=== PATIENT | male | born 1945 | race Caucasian/White ===

== ENCOUNTER → 2018-12-14 14:14 | Outpatient (CLI) | payer MEDICARE, OTHER, SELFPAY ==
[2018-12-14 12:54] VITALS: BMI 21.2
[2018-12-14 14:52] LABS: Erythrocyte Sedimentation Rate < 1 mm/hr (0-20)
[2018-12-14 15:06] LABS: AST(SGOT) 28 U/L (15-37); Alanine Aminotransfer ALT/SGPT 22 U/L (16-61); Albumin, Serum 3.8 g/dL (3.2-5.0); Alkaline Phosphatase 94 U/L (45-117); Cholesterol 128 mg/dL (200); Globulin 3.3 g/dL (2.2-4.2); High Density Lipoprotein 68 mg/dL; Protein, Total 7.1 g/dL (6.4-8.2); Triglycerides 63 mg/dL; Very Low Density Lipoprotein 13 mg/dL (5-40)
== END ==
PROVIDERS: Referring Provider Physician Assistant Medical; Visit Provider Physician Assistant Medical
DX: I10 Essential (primary) hypertension (principal); I25.10 Atherosclerotic heart disease of native coronary artery without angina pectoris; E78.00 Pure hypercholesterolemia, unspecified; R51 Headache
CPT/HCPCS: 36415; 80061; 80076; 85652

== ENCOUNTER 2019-01-05 10:36 | Emergency (ER) | payer MEDICARE, OTHER, SELFPAY ==
[2018-12-14 12:54] VITALS: BMI 21.2
[2019-01-05] VITALS (9 sets, daily range): BP systolic 153–174; BP diastolic 65–84; PULSE 60–89; RESP 18–21; TEMP 36.9; O2SAT 93–99; BMI 20.3
--- NOTE | 2019-01-05 10:43 | EKG12_ITS ---
Test Reason : NEURO S/SX Blood Pressure : / mmHG Vent. Rate : 061 BPM Atrial Rate : 061 BPM P-R Int : 126 ms QRS Dur : 088 ms QT Int : 428 ms P-R-T Axes : 000 -16 069 degrees QTc Int : 430 ms Normal sinus rhythm Minimal voltage criteria for LVH, may be normal variant Septal infarct , age undetermined Abnormal ECG Confirmed by KHANG DWYER, NATHAN ([id number]), web editor DOUGIE CORCORAN ([id number]) on 01/07/2019 11:03:11 AM Referred By: RADHA Confirmed By:NATHAN QUIÑONEZ MD
--- NOTE | 2019-01-05 10:43 | RAD_ITS ---
STUDY: X-RAY CHEST REASON FOR EXAM: Male, 73 years old. Difficulty walking, speaking and hearing. Last known well last night. Vomiting last night. TECHNIQUE: Portable upright chest COMPARISON: CTA chest 10/28/2017. FINDINGS: Pulmonary hyperlucency and hyperinflation with diffuse mild coarsening of interstitium and hemidiaphragm flattening consistent with COPD/emphysema. Lungs otherwise acutely clear. Normal cardiomediastinal silhouette, calli, pleural margins. No acute osseous or upper abdominal process. RAD/Chest 1 View IMPRESSION: No acute cardiopulmonary process. Electronically Signed: Leroy Barrow MD at 12:57 EDT Tel , Service support ,
--- NOTE | 2019-01-05 10:43 | CT_ITS ---
STUDY: CT BRAIN WITHOUT CONTRAST REASON FOR EXAM: Male, 73 years old. Trouble with walking. Speech and hearing RADIATION DOSAGE (If Supplied By Facility): CTDIvol = ( 44.99 ) mGy, DLP = ( 767.99 ) mGycm TECHNIQUE: Transaxial CT imaging of the brain was performed without administration of intravenous contrast material. Individualized dose optimization techniques were used for this CT. COMPARISON: None. FINDINGS: Normal soft tissue structures. Normal calvarium. There is an area of acute intracranial hemorrhage within the left frontal lobe with surrounding edema. Area of hemorrhage measuring at least 3.9 x 2.7 x 4.4 cm. There is also blood products within the bilateral lateral ventricles. There is only slight rightward mass effect and midline shift. Midline shift measuring roughly 3.6 mm. No evidence of uncal herniation. Otherwise, moderate chronic conclusions changes of the brain. Normal visualized paranasal sinuses. CT/Brain/Head without Contrast IMPRESSION: Intracranial hemorrhage within the left frontal lobe with surrounding edema. Slight rightward mass effect or midline shift. No evidence of uncal herniation. Small amount of blood products within the lateral ventricles. N.B. : The above information has been verbally conveyed by Darron Wilkerson DO to Dr. Roy; [phone], on 01/05/2019 12:52:49 (ET). Electronically Signed: Darron Wilkerson DO at 12:53 EDT Tel , Service support ,
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
[2019-01-05 10:56] LABS: Bedside Glucose 136 mg/dL (70-110)
[2019-01-05 11:07] LABS: Absolute Lymphocyte Count 1.65 X10^3/ul (0.83-4.51); Basophil# 0.01 X10^3/uL; Differential Indicated SCAN CRITERIA MET; Hematocrit 48.1 % (40-54); Hemoglobin 15.6 g/dl (13.0-16.5); Lymphocyte # 1.65 X10^3/ul (4.0); Mean Corp Hgb Conc 32.4 g/gl (32-36); Mean Corpuscular Hgb 29.2 pg (27.0-32.0); Mean Corpuscular Volume 89.9 fL (80-94); Monocyte# 1.85 X10^3/uL; Neutrophil # 16.95 X10^3/uL (2.7-7.7); Neutrophil % 82.8 % (47-70); POSITIVE COUNT NO; POSITIVE DIFFERENTIAL YES; POSITIVE MORPHOLOGY NO; Platelet Count 234 K/mm3 (150-450); RBC Distribution Width CV 14.4 % (11.6-14.6); RBC Distribution Width SD 47.1 fl (35.1-43.9); Red Blood Count 5.35 M/mm3 (4.6-6.2); White Blood Count 20.5 K/mm3 (4.4-11.0)
[2019-01-05 11:20] LABS: Anion Gap 13 (5-15); BUN 26 mg/dL (7-18); BUN/Creat Ratio 23.9 RATIO (10-20); Calcium,Total 8.9 mg/dL (8.5-10.1); Chloride 106 mmol/L (98-107); Creatinine, Serum 1.09 mg/dL (0.70-1.30); EST Glomerular Filtration Rate 70 mL/min (>60); Est Glom Filt Rate - Afr Amer 85 mL/min (>60); Glucose 133 mg/dL (74-106); Potassium 4.3 mmol/L (3.5-5.1); Sodium Level 142 mmol/L (136-145)
[2019-01-05 11:31] LABS: International Normalized Ratio 1.2; Prothrombin Time (Protime)PT. 14.6 SECONDS (11.7-14.9)
[2019-01-05] MEDS: LORazepam 2 MG/ML Syringe 0.5 MG IV (12:26)
--- NOTE | 2019-01-05 12:44 | ED.RN ---
CALLED REPORT RICHARDSON BHATTI.
--- NOTE | 2019-01-05 13:23 | ED.RN ---
MILAN IN ED.
[2019-01-06 14:16] LABS: Pathologist Review Reviewed
== END 2019-01-05 13:29 | disposition short-term general hospital (02) ==
LOC: ED 11:57
PROVIDERS: Emergency Provider Emergency Medicine
DX: I61.9 Nontraumatic intracerebral hemorrhage, unspecified (principal); R47.01 Aphasia; D68.51 Activated protein C resistance; I10 Essential (primary) hypertension; R11.2 Nausea with vomiting, unspecified; F41.9 Anxiety disorder, unspecified; Z79.899 Other long term (current) drug therapy; Z86.73 Personal history of transient ischemic attack (TIA), and cerebral infarction without residual deficits
CPT/HCPCS: 70450; 71045; 80048; 82962; 84484; 85025; 85610; 85730; 93005; 96361; 96374; 99285; J7030; J7050; A4216

== ENCOUNTER → 2019-07-29 12:43 | Outpatient (CLI) | payer MEDICARE, OTHER, SELFPAY ==
[2019-07-09 10:24] VITALS: BMI 20.9
--- NOTE | 2019-07-29 12:44 | ECHOD_ITS ---
Reason For Study: HYPERTENSION Procedure This was a 2D Doppler, Color Flow transthoracic echocardiogram. Exam performed in department. Left Ventricle Normal LV size. Left ventricular systolic function is normal. The estimated ejection fraction is 60 %. Stage 2 diastolic dysfunction. No regional wall motion abnormalities noted. Right Ventricle Normal RV size. Normal systolic function. Atria Normal left atrium. Normal right atrium. Mitral Valve Normal mitral valve. Tricuspid Valve Normal tricuspid valve. Mild tricuspid valve insufficiency. Pulmonary artery systolic pressure is 25 mmHg. Aortic Valve Trisinus/trileaflet aortic valve. Mild focal aortic valve calcification. Pulmonic Valve Normal pulmonic valve. Great Vessels Normal aortic root. The pulmonary artery is normal size. Normal inferior vena cava. Pericardium/Pleural No pericardial effusion. MMode/2D Measurements & Calculations LVIDd: 4.1 cm IVSd: 0.76 cm Ao root diam: 3.1 cm LVIDs: 2.7 cm LVPWd: 0.79 cm RVDd: 3.3 cm FS: 34.6 % LAV(MOD-bp): 49.7 ml LA A4 area: 13.7 cm2 LA dimension(2D): 2.3 cm LAV(MOD-bp) Indexed: 26.7 ml/m2 LAV(MOD-sp2): 51.6 ml LAV(MOD-sp4): 37.2 ml RA A4 area: 14.6 cm2 Time Measurements MV dec time: 0.26 sec Doppler Measurements & Calculations MV E max scooter: 57.8 cm/sec Lat Peak E' Scooter: 11.1 cm/sec Med Peak E' Scooter: 10.8 cm/sec MV A max scooter: 60.6 cm/sec E/E' lat: 5.2 E/E' med: 5.4 MV E/A: 0.95 Ao V2 max: 150.6 cm/sec LV V1 max: 112.9 cm/sec PA V2 max: 86.1 cm/sec Ao max P.1 mmHg LV V1 max P.1 mmHg PI dec slope: 106.3 cm/sec2 TR max scooter: 229.2 cm/sec TR max P.1 mmHg Interpretation Summary Normal LV size. Left ventricular systolic function is normal. The estimated ejection fraction is 60 %. Stage 2 diastolic dysfunction. Mild tricuspid valve insufficiency. Ordering Physician: Russ Bower Referring Physician: Garrett Rollins Performed By: Criss Pineda RDCS, RVT
== END ==
PROVIDERS: Family Provider Family Medicine; PCP Family Medicine; Referring Provider Internal Medicine Cardiovascular Disease; Visit Provider Internal Medicine Cardiovascular Disease
DX: R60.0 Localized edema (principal)
CPT/HCPCS: 93306

== ENCOUNTER → 2019-11-23 | Outpatient (CLI) | payer MEDICARE, OTHER, SELFPAY ==
[2019-07-09 10:24] VITALS: BMI 20.9
[2019-11-23 16:28] LABS: Prothrombin Time (Protime)PT. 35.2 SECONDS (11.7-14.9)
[2019-11-23 16:33] LABS: International Normalized Ratio 3.5
== END | disposition home or self-care (01) ==
PROVIDERS: PCP Family Medicine; Referring Provider Family Medicine; Visit Provider Family Medicine
DX: I82.4Y9 Acute embolism and thrombosis of unspecified deep veins of unspecified proximal lower extremity (principal)
CPT/HCPCS: 85610

== ENCOUNTER → 2019-11-26 | Outpatient (CLI) | payer MEDICARE, OTHER, SELFPAY ==
[2019-07-09 10:24] VITALS: BMI 20.9
[2019-11-26 14:30] LABS: Prothrombin Time (Protime)PT. 43.1 SECONDS (11.7-14.9)
[2019-11-26 17:19] LABS: International Normalized Ratio 4.5
== END | disposition home or self-care (01) ==
LOC: LABSPEC 14:05
PROVIDERS: PCP Family Medicine; Referring Provider Student in an Organized Health Care Education/Training Program; Visit Provider Student in an Organized Health Care Education/Training Program
DX: I82.422 Acute embolism and thrombosis of left iliac vein (principal)
CPT/HCPCS: 85610

== ENCOUNTER → 2019-11-29 | Outpatient (CLI) | payer MEDICARE, OTHER, SELFPAY ==
[2019-07-09 10:24] VITALS: BMI 20.9
[2019-11-29 10:45] LABS: International Normalized Ratio 2.7; Prothrombin Time (Protime)PT. 28.9 SECONDS (11.7-14.9)
== END | disposition home or self-care (01) ==
PROVIDERS: PCP Family Medicine; Referring Provider Family Medicine; Visit Provider Family Medicine
DX: I82.4Y9 Acute embolism and thrombosis of unspecified deep veins of unspecified proximal lower extremity (principal)
CPT/HCPCS: 85610

== ENCOUNTER → 2021-08-24 14:20 | Outpatient (CLI) | payer MEDICARE, OTHER, SELFPAY ==
[2021-08-24 17:33] LABS: Hematocrit 50.1 % (40-54); Hemoglobin 15.8 g/dL (13.0-16.5); Mean Corp Hgb Conc 31.5 g/dL (32-36); Mean Corpuscular Hgb 29.4 pg (27.0-32.0); Mean Corpuscular Volume 93.1 fL (80-94); Mean Platelet Vol. 11.1 fl (6.2-12.0); Platelet Count 270 K/mm3 (150-450); RBC Distribution Width CV 14.2 % (11.6-14.6); RBC Distribution Width SD 48.8 fl (35.1-43.9); Red Blood Count 5.38 M/mm3 (4.6-6.2); White Blood Count 8.1 K/mm3 (4.4-11.0)
[2021-08-24 17:43] LABS: Erythrocyte Sedimentation Rate 4 mm/hr (0-20)
[2021-08-24 18:03] LABS: Vitamin B12 295 pg/mL (211-911)
[2021-08-24 18:14] LABS: ALB/GLOB Ratio 0.9 RATIO (0.9-2.4); AST(SGOT) 28 U/L (15-37); Alanine Aminotransfer ALT/SGPT 26 U/L (16-61); Albumin, Serum 3.4 g/dL (3.2-5.0); Alkaline Phosphatase 100 U/L (45-117); Anion Gap 5 (5-15); BUN 15 mg/dL (7-18); BUN/Creat Ratio 14.2 RATIO (10-20); CRP < 2.90 mg/L (0.0-3.0); Calcium,Total 8.7 mg/dL (8.5-10.1); Chloride 109 mmol/L (98-107); Cholesterol 151 mg/dL (200); Creatinine, Serum 1.06 mg/dL (0.70-1.30); EST Glomerular Filtration Rate 72 mL/min (>60); Est Glom Filt Rate - Afr Amer 87 mL/min (>60); Globulin 3.9 g/dL (2.2-4.2); Glucose 68 mg/dL (74-106); High Density Lipoprotein 75 mg/dL; Potassium 5.2 mmol/L (3.5-5.1); Protein, Total 7.3 g/dL (6.4-8.2); Sodium Level 141 mmol/L (136-145); Thyroid Stim Hormone (TSH) 2.22 uIU/mL (0.358-3.74); Triglycerides 103 mg/dL; Very Low Density Lipoprotein 21 mg/dL (5-40)
[2021-08-29 15:01] LABS: ANTINUCLEAR ANTIBODIES DIRECT Negative (Negative)
[2021-08-31 08:24] LABS: Vitamin B1, Thiamine 136.4 nmol/L (66.5-200.0)
== END ==
PROVIDERS: PCP Family Medicine; Referring Provider Psychiatry & Neurology Neurology; Visit Provider Psychiatry & Neurology Neurology
DX: F01.50 Vascular dementia, unspecified severity, without behavioral disturbance, psychotic disturbance, mood disturbance, and anxiety (principal); E78.00 Pure hypercholesterolemia, unspecified; Z86.711 Personal history of pulmonary embolism; Z86.73 Personal history of transient ischemic attack (TIA), and cerebral infarction without residual deficits
CPT/HCPCS: 36415; 80053; 80061; 82607; 82746; 84425; 84443; 85027; 85652; 86038; 86140; 86225; 86235

== ENCOUNTER → 2021-10-02 16:16 | Outpatient (CLI) | payer MEDICARE, OTHER, SELFPAY ==
--- NOTE | 2021-10-02 16:20 | MRI_ITS ---
EXAM: MR HEAD WITHOUT AND WITH INTRAVENOUS CONTRAST CLINICAL INDICATION: Intracerebral Hemorrhage FOLLOW UP TECHNIQUE: Multiplanar and multisequence MR images of the brain were obtained without and with intravenous contrast. This report was created using [employer] report [employer] technology. CONTRAST: 13ML IV DOTAREM COMPARISON: CT 01/05/2019 FINDINGS: BRAIN AND EXTRA-AXIAL SPACES: Microvascular ischemic changes. There are left frontal lobe old infarcts. There is left frontal lobe area of low GRE signal in the brain. This likely represents areas of prior infarction and/ hemosiderin deposition. No intra- or extra-axial hemorrhage. No intracranial mass or mass effect. Posterior fossa structures are unremarkable. Ventricles are appropriate for age. No hydrocephalus. Basal cisterns are patent. SELLA: Unremarkable. Normal sella turcica, pituitary gland, infundibular stalk, optic chiasm and hypothalamus. AUDITORY SYSTEM: Unremarkable. The internal auditory canals are patent. BONES/JOINTS: Unremarkable. No discrete lytic or blastic abnormalities. SINUSES: Unremarkable as visualized. Clear. MASTOID AIR CELLS: Unremarkable as visualized. Clear. ORBITS: Unremarkable as visualized. Both globes, extraocular muscles, optic nerves and retrobulbar fat appear unremarkable. VASCULATURE: Unremarkable as visualized. Normal flow voids in the major intracranial circulation. MRI/Brain W/WO Contrast IMPRESSION: Microvascular ischemic changes. Electronically Signed: Ino Glze MD at 20:11 EST , Service support ,
[2021-10-02 18:46] LABS: CREATININE FINGERSTICK 0.8 mg/dL (0.70-1.30); EGFR FINGERSTICK > 60.0000 mL/min (>60)
== END ==
PROVIDERS: PCP Family Medicine; Visit Provider Psychiatry & Neurology Neurology
DX: I61.9 Nontraumatic intracerebral hemorrhage, unspecified (principal)
CPT/HCPCS: 70553; A9575

== ENCOUNTER → 2022-04-30 | Outpatient (CLI) | payer MEDICARE, OTHER, SELFPAY ==
[2022-04-30 17:58] LABS: Hematocrit 48.3 % (40-54); Hemoglobin 15.4 g/dL (13.0-16.5); Mean Corp Hgb Conc 31.9 g/dL (32-36); Mean Corpuscular Hgb 29.7 pg (27.0-32.0); Mean Corpuscular Volume 93.1 fL (80-94); Mean Platelet Vol. 11.8 fl (6.2-12.0); Platelet Count 228 K/mm3 (150-450); RBC Distribution Width CV 14.5 % (11.6-14.6); RBC Distribution Width SD 49.2 fl (35.1-43.9); Red Blood Count 5.19 M/mm3 (4.6-6.2); White Blood Count 7.4 K/mm3 (4.4-11.0)
[2022-04-30 18:02] LABS: International Normalized Ratio 3.4; Prothrombin Time (Protime)PT. 34.3 SECONDS (11.7-14.9)
[2022-04-30 18:38] LABS: ALB/GLOB Ratio 1.1 RATIO (0.9-2.4); AST(SGOT) 52 U/L (15-37); Alanine Aminotransfer ALT/SGPT 51 U/L (16-61); Albumin, Serum 3.6 g/dL (3.2-5.0); Alkaline Phosphatase 95 U/L (45-117); Anion Gap 5 (5-15); BUN 14 mg/dL (7-18); BUN/Creat Ratio 14.1 RATIO (10-20); Calcium,Total 8.6 mg/dL (8.5-10.1); Chloride 109 mmol/L (98-107); Cholesterol 129 mg/dL (200); Creatinine, Serum 0.99 mg/dL (0.70-1.30); EST Glomerular Filtration Rate 78 mL/min (>60); Est Glom Filt Rate - Afr Amer 94 mL/min (>60); Globulin 3.3 g/dL (2.2-4.2); Glucose 93 mg/dL (74-106); High Density Lipoprotein 71 mg/dL; Potassium 4.1 mmol/L (3.5-5.1); Protein, Total 6.9 g/dL (6.4-8.2); Sodium Level 140 mmol/L (136-145); Thyroid Stim Hormone (TSH) 2.36 uIU/mL (0.358-3.74); Triglycerides 59 mg/dL; Very Low Density Lipoprotein 12 mg/dL (5-40)
== END | disposition home or self-care (01) ==
LOC: MTLAB 14:09
PROVIDERS: PCP Family Medicine; Referring Provider Psychiatry & Neurology Neurology; Visit Provider Psychiatry & Neurology Neurology
DX: I10 Essential (primary) hypertension (principal); D68.51 Activated protein C resistance; E78.00 Pure hypercholesterolemia, unspecified
CPT/HCPCS: 36415; 80053; 80061; 84443; 85027; 85610

== ENCOUNTER 2022-11-19 17:23 | Inpatient (IN) | payer MEDICARE, OTHER, SELFPAY ==
[2022-11-19] VITALS (7 sets, daily range): BP systolic 116–149; BP diastolic 70–89; PULSE 80–103; RESP 15–21; TEMP 37.1–37.2; O2SAT 95–99; BMI 34.0; BMI 18.8
[2022-11-19] MEDS: Albuterol 2.5 MG/3 ML VIAL.NEB. INHALATION ×3 (17:55→18:32)
[2022-11-19] MEDS: Ipratropium/Albuterol Sulfate 3 ML AMPUL.NEB INHALATION (17:55)
[2022-11-19 18:16] LABS: Absolute Lymphocyte Count 1.38 X10^3/uL (0.83-4.51); Absolute Neutrophil Count 13.3 X10^3/uL (2.0-7.7); Basophil# 0.03 X10^3/uL; Basophil% 0.2 % (0-1); Hematocrit 43.7 % (40-54); Hemoglobin 14.5 g/dL (13.0-16.5); Lymphocyte # 1.38 X10^3/ul (0.83-4.51); Lymphocyte % 8.8 % (19-41); Mean Corp Hgb Conc 33.2 g/dL (32-36); Mean Corpuscular Hgb 29.3 pg (27.0-32.0); Mean Corpuscular Volume 88.3 fL (80-94); Mean Platelet Vol. 10.4 fl (6.2-12.0); Monocyte# 0.87 X10^3/uL; Monocyte% 5.6 % (0-10); NRBC Flagged by Analyzer 0 % (0-5); Neutrophil # 13.29 X10^3/uL (2.7-7.7); Neutrophil % 85.1 % (47-70); Platelet Count 250 K/mm3 (150-450); RBC Distribution Width CV 13.7 % (11.6-14.6); RBC Distribution Width SD 44.2 fl (35.1-43.9); Red Blood Count 4.95 M/mm3 (4.6-6.2); White Blood Count 15.6 K/mm3 (4.4-11.0)
[2022-11-19 18:46] LABS: ALB/GLOB Ratio 1.1 RATIO (0.9-2.4); AST(SGOT) 22 U/L (15-37); Alanine Aminotransfer ALT/SGPT 19 U/L (16-61); Albumin, Serum 3.5 g/dL (3.2-5.0); Alkaline Phosphatase 96 U/L (45-117); Anion Gap 6 (5-15); BUN 17 mg/dL (7-18); BUN/Creat Ratio 16.3 RATIO (10-20); Calcium,Total 8.6 mg/dL (8.5-10.1); Chloride 109 mmol/L (98-107); Creatinine, Serum 1.04 mg/dL (0.70-1.30); EST Glomerular Filtration Rate 73 mL/min (>60); Est Glom Filt Rate - Afr Amer 89 mL/min (>60); Estimated Creatinine Clearance 57.59 ml/min; Globulin 3.3 g/dL (2.2-4.2); Glucose 128 mg/dL (74-106); Potassium 4.1 mmol/L (3.5-5.1); Protein, Total 6.8 g/dL (6.4-8.2); Sodium Level 138 mmol/L (136-145)
[2022-11-19 18:49] LABS: Lactic Acid 1.6 mmol/L (0.4-1.9)
--- NOTE | 2022-11-19 19:04 | CPS ---
[1822] x2 Albuterol given to pt. Pt's HR = 83, RR = 18 with cleared up breath sounds with scattered rhonchi.
[2022-11-19 19:29] LABS: Mucous, Urine 0 SEEN /hpf (<or=2+); Squamous Epithelial Cells - UA 0 SEEN /hpf (0-5)
[2022-11-19 19:31] LABS: Color, Urine Yellow (Yellow); Glucose, Dipstick Normal (Normal); Ketone-Dipstick 5 mg/dl (Negative); Leukocyte Esterase-Dipstick 500 /ul (Negative); Nitrite-Dipstick Positive (Negative); Occult Blood-Urine 150 /ul (Negative); Protein-Dipstick 30 mg/dl (Negative); Urine Bilirubin Dipstick Negative (Negative); Urine Clarity Cloudy (Clear); Urine Urobilinogen 1 mg/dl (Normal)
[2022-11-19 19:49] LABS: Bacteria 2+ /hpf (None Seen); Red Blood Cells-Urine 10-25 SEEN /hpf (0-5); White Blood Cells 10-25 SEEN /hpf (0-5)
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
--- NOTE | 2022-11-19 20:13 | RAD_ITS ---
INDICATION: Rales and wheezing right lower lobe with egophony EXAMINATION/TECHNIQUE: X-RAY - XR Chest 2 Views COMPARISON: 01/05/2019, CT chest 10/28/2017. FINDINGS: LINES/DEVICES: None. LUNGS: No consolidation, edema or effusion. No pneumothorax. Flattened diaphragm and mild pulmonary lucency consistent with COPD. MEDIASTINUM AND CARDIOVASCULAR STRUCTURES: Cardiac silhouette not enlarged. Central airways and mediastinal contour are unremarkable. BONES AND SOFT TISSUES: Chronic thoracic compression fractures. RAD/Chest PA and Lateral IMPRESSION: No acute cardiopulmonary disease. COPD. Electronically Signed: Nichole Abebe MD at 20:43 EST Reading Location ID and State: [id number] / Tel , Service support ,
[2022-11-19] MEDS: Ceftriaxone 1 GM/50 ML BAG IV (21:07)
[2022-11-19 21:46] LABS: International Normalized Ratio 2.9; Prothrombin Time (Protime)PT. 30.2 SECONDS (11.7-14.9)
[2022-11-19] MEDS: 0.9% Normal Saline 1,000 ML 100 ML IV (22:38)
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
--- NOTE | 2022-11-20 00:25 | PN.HOSP_ITS ---
Hospitalist Note CT head obtained and contacted by Radiology reliability technician with concerns of obvious intracranial hemorrhage with final read requested STAT and pending. Contacted ED and reviewed imaging with them as not yet uploaded and per their preliminary review with evidence intracranial hemorrhage involving the posterior R horn with extravasation into the surrounding parenchyma, approximate 2-3 mm mild displacement of midline, possibly subtentorial subdural. Given patient history of HIT to be cautious reviewed clearance for Kcentra administration with pharma cy and it is contraindicated. Will continue with IV vitamin K administration. Contacted patient family. Left VM for granddaughter and discussed case with presentation with plan for transfer to [facility] with Alka Shook listed as emergency contact, spouse to Louis Shook (HCPOA, at work). Contacted [facility] and no ICU beds available. Contacted [facility] and also no ICU beds available. Contacted [facility] transfer line and there are also no ICU beds. Discussed and requested any potential ICU bed availability with Neurosurgery availability with the [facility] transfer line and they noted all facilities in their system are completely full. Contacted [facility] transfer line and currently there are also no beds available but given the situation discussed with their staff and patient will be transported Critical Care to their ED accepted under Dr. Zelaya. Final read called in by radiology toward end of call with [facility] and radiology noted hematoma R occipital lobe, 3 cm average diameter with extension into the R lateral ventricle, slight subdural hematoma long R tentorium. Will update family plan of care. Orders also placed for transition of patient to the ICU under hemorrhagic stroke order set pending his transfer.
[2022-11-20 01:20] VITALS: BP 158/93; PULSE 86; RESP 16; TEMP 37.5; O2SAT 94
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
[2022-11-20 01:50] VITALS: PULSE 86
[2022-11-20] MEDS: hydrALAZINE 20 MG/ML Vial 10 MG IV (01:50)
--- NOTE | 2022-11-20 02:06 | NURSING ---
Report given to cv rn at this time. Aware that per [facility] neuro md that they want pts systolic blood pressure less than [address] page placed orders for cardene gtt.
[2022-11-20 02:10] VITALS: BP 160/76; PULSE 86
[2022-11-20] MEDS: Labetalol 100 MG/20 ML Vial 20 MG IV ×2 (02:10→02:33)
[2022-11-20 02:14] VITALS: BP 130/87
[2022-11-20 02:34] LABS: Absolute Lymphocyte Count 2.19 X10^3/uL (0.83-4.51); Absolute Neutrophil Count 9.7 X10^3/uL (2.0-7.7); Basophil# 0.03 X10^3/uL; Basophil% 0.2 % (0-1); Hematocrit 40.1 % (40-54); Hemoglobin 13.2 g/dL (13.0-16.5); Lymphocyte # 2.19 X10^3/ul (0.83-4.51); Mean Corp Hgb Conc 32.9 g/dL (32-36); Mean Corpuscular Volume 88.1 fL (80-94); Mean Platelet Vol. 10.4 fl (6.2-12.0); Monocyte# 1.76 X10^3/uL; Monocyte% 12.9 % (0-10); NRBC Flagged by Analyzer 0 % (0-5); Neutrophil # 9.65 X10^3/uL (2.7-7.7); Neutrophil % 70.7 % (47-70); POSITIVE DIFFERENTIAL YES; Platelet Count 211 K/mm3 (150-450); RBC Distribution Width CV 13.7 % (11.6-14.6); RBC Distribution Width SD 44.5 fl (35.1-43.9); Red Blood Count 4.55 M/mm3 (4.6-6.2); White Blood Count 13.7 K/mm3 (4.4-11.0)
[2022-11-20 02:35] LABS: Differential Indicated SCAN CRITERIA MET
[2022-11-20 02:45] LABS: International Normalized Ratio 2.4; Prothrombin Time (Protime)PT. 25.5 SECONDS (11.7-14.9)
--- NOTE | 2022-11-20 02:46 | NURSING ---
pt arrived to unit @ 0205 am. NIHSS scored as a 1. 1 dose of labetalol given at 0210 for systolic BP above 140. Another dose of labetalol given at 0233 for systolic BP given at 0233 for systolic above 140. HR and RR WNL. GCS of 4-6-5. transport arrived @ 0230 to take patient to [facility].
[2022-11-20 02:51] LABS: AST(SGOT) 23 U/L (15-37); Alanine Aminotransfer ALT/SGPT 18 U/L (16-61); Albumin, Serum 3.1 g/dL (3.2-5.0); Alkaline Phosphatase 81 U/L (45-117); Anion Gap 7 (5-15); BUN 18 mg/dL (7-18); BUN/Creat Ratio 19.7 RATIO (10-20); Calcium,Total 8.2 mg/dL (8.5-10.1); Chloride 109 mmol/L (98-107); Creatinine, Serum 0.91 mg/dL (0.70-1.30); EST Glomerular Filtration Rate 85 mL/min (>60); Est Glom Filt Rate - Afr Amer 103 mL/min (>60); Estimated Creatinine Clearance 57.16 ml/min; Globulin 3.2 g/dL (2.2-4.2); Glucose 117 mg/dL (74-106); Potassium 3.7 mmol/L (3.5-5.1); Protein, Total 6.3 g/dL (6.4-8.2); Sodium Level 139 mmol/L (136-145)
[2022-11-20 03:00] LABS: Atypical Lymphocyte 1+ %
--- NOTE | 2022-11-20 22:59 | CT_ITS ---
EXAM: CT HEAD WITHOUT INTRAVENOUS CONTRAST CLINICAL INDICATION: Encephalopathy TECHNIQUE: Multiple axial images were obtained of the head without intravenous contrast. This CT exam was performed using one or more of the following dose reduction techniques: automated exposure control, adjustment of the mA and/or kV according to patient size, and/or use of iterative reconstruction technique. This report was created using [employer] report generation technology. RADIATION DOSE: CTDIvol = 44.99 mGy, DLP = 846.73 mGy-cm. COMPARISON: None. FINDINGS: BRAIN AND EXTRA-AXIAL SPACES: Intraparenchymal hematoma measuring 2.9 x 2.9 x 2.5 cm right occipital lobe. There is intraventricular extension into the right occipital horn. Slight amount of blood along the right tentorium. Slight displacement of the posterior falx to the left. Moderate generalized atrophy. Moderate low density bilaterally in the deep white matter. 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 No intracranial mass or mass effect. No hydrocephalus. Basal cisterns are patent. BONES/JOINTS: Unremarkable. No discrete lytic or blastic abnormalities. SINUSES: Unremarkable as visualized. Clear. MASTOID AIR CELLS: Unremarkable. Clear. ORBITS: Visualized globes, extraocular muscles, optic nerves and retrobulbar fat appear unremarkable. CT/Brain/Head without Contrast IMPRESSION: 1. Intraparenchymal hematoma measuring 2.9 x 2.9 x 2.5 cm right occipital lobe with intraventricular extension and slight adjacent right tentorial subdural hematoma. 2. Moderate generalized atrophy. Moderate low density bilaterally in the deep white matter. This likely represents small vessel ischemic changes in the deep white matter. 3. 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 N.B. : The above Results were Read Back by Balbir Leigh MD to Lore Mckee MD, and understanding confirmed on 11/20/2022 01:17:00 (ET). Electronically Signed: Balbir Leigh MD at 1:18 EST ,
[2022-11-21 10:40] LABS: Pathologist Review Reviewed
== END 2022-11-20 02:50 | disposition short-term general hospital (02) | DRG 65 ==
LOC: ED 20:35 → PCU 20:51 → ICU 11-20 02:05
PROVIDERS: Admitting Provider Family Medicine; Emergency Provider Emergency Medicine; PCP Family Medicine; Visit Provider Family Medicine
DX: I61.8 Other nontraumatic intracerebral hemorrhage (principal); G93.49 Other encephalopathy; F01.518 Vascular dementia, unspecified severity, with other behavioral disturbance; D68.51 Activated protein C resistance; N39.0 Urinary tract infection, site not specified; I25.10 Atherosclerotic heart disease of native coronary artery without angina pectoris; I10 Essential (primary) hypertension; E78.5 Hyperlipidemia, unspecified; F17.290 Nicotine dependence, other tobacco product, uncomplicated; Z95.5 Presence of coronary angioplasty implant and graft; Z79.01 Long term (current) use of anticoagulants; Z79.899 Other long term (current) drug therapy; Z86.711 Personal history of pulmonary embolism; Z86.718 Personal history of other venous thrombosis and embolism; Z86.73 Personal history of transient ischemic attack (TIA), and cerebral infarction without residual deficits
CPT/HCPCS: 70450; 71046; 80053; 81001; 83605; 85025; 85610; 87040; 87086; 87088; 94640; 99252; 99285; 99406; J7030; J7050; A4216; G0463; J3490

== ENCOUNTER 2022-12-01 17:58 | Emergency (ER) | payer MEDICARE, OTHER, SELFPAY ==
[2022-12-01 17:59] VITALS: BP 140/75; PULSE 70; RESP 18; TEMP 36.5; O2SAT 97; BMI 19.8
[2022-12-01 18:02] VITALS: BP 140/75; PULSE 68; RESP 18; TEMP 36.5; O2SAT 98
--- NOTE | 2022-12-01 18:20 | EKG12_ITS ---
Test Reason : CONFUSION Blood Pressure : / mmHG Vent. Rate : 064 BPM Atrial Rate : 064 BPM P-R Int : 148 ms QRS Dur : 090 ms QT Int : 428 ms P-R-T Axes : 062 -39 076 degrees QTc Int : 441 ms Normal sinus rhythm Left axis deviation Septal infarct , age undetermined Abnormal ECG Confirmed by KHANG DWYER, NATHAN ([id number]), editorial manager DOUGIE CORCORAN ([id number]) on 12/02/2022 1:09:24 PM Referred By: FLAVIA Confirmed By:NATHAN QUIÑONEZ MD
--- NOTE | 2022-12-01 18:20 | CT_ITS ---
We are attempting to reach an attending provider to discuss findings. An addendum with communication details will be sent when the communication is complete. EXAM: CT HEAD WITHOUT INTRAVENOUS CONTRAST CLINICAL INDICATION: altered mental status, recent cerebral hemorrhage, today lethargic TECHNIQUE: Multiple axial images were obtained of the head without intravenous contrast. This CT exam was performed using one or more of the following dose reduction techniques: automated exposure control, adjustment of the mA and/or kV according to patient size, and/or use of iterative reconstruction technique. This report was created using [employer] report Noah technology. COMPARISON: 11/20/2022 FINDINGS: BRAIN AND EXTRA-AXIAL SPACES: There has been interval decrease of an intraparenchymal hemorrhage in the right occipital lobe which now measures 1.5 x 2.4 x 1.5 cm. There is mild surrounding edema. There is encephalomalacia in the high left frontal lobe from remote infarct. There is no intraventricular hemorrhage on today''s exam. The ventricular system and cortical sulci are enlarged in size but stable. There is hypoattenuation in the periventricular white matter. No intracranial mass or mass effect. There is a stable remote left cerebellar infarct. Basal cisterns are patent. BONES/JOINTS: Unremarkable. No discrete lytic or blastic abnormalities. SINUSES: Unremarkable as visualized. Clear. MASTOID AIR CELLS: Unremarkable. Clear. ORBITS: Visualized globes, extraocular muscles, optic nerves and retrobulbar fat appear unremarkable. CT/STROKE Brain/Head without Cont IMPRESSION: 1. Interval decrease in size of a right occipital hemorrhage. There is a small amount of surrounding edema. There is no intraventricular hemorrhage on today''s exam. 2. No acute intracranial abnormality. There is a stable remote left frontal lobe infarct. There is a stable left cerebellar infarct. There are stable underlying senescent change with small vessel ischemia. 3. Aspects score 10. Electronically Signed: Armin Abernathy MD at 18:42 EST ,
[2022-12-01 18:22] VITALS: BP 143/78; PULSE 78; RESP 16; TEMP 36.4; O2SAT 95
--- NOTE | 2022-12-01 18:22 | ED.VIS.STROK ---
HPI History of Present Illness Chief Complaint: Confusion Informant: patient and spouse/S.O. (son) Onset/Context/Timing Onset: - (unsure exactly) Narrative Narrative: Patient very confused today. Son saw him yesterday and today and has noticed a very big difference. Also he noticed him holding his head, and the patient said he had a headache. Also said that his left shoulder was bothering him although he denies that it is hurting now. Patient was admitted to care home facility the day before yesterday after being admitted at [facility] being treated for a spontaneous intracranial hemorrhage as well as possible pneumonia and possible urinary infection. He has a history of factor V Leiden, has a history of pulmonary emboli, none diagnosed recently, and also according to the EMR has a history of an IVC filter being placed. He currently is on Eliquis 2.5 mg twice daily according to the son; it is unknown according to him and the nurses at the retirement that he spoke with when this was restarted. He was on it prior to the brain hemorrhage. Very limited evaluation from the patient with regards to history since he is very confused and extremely hard of hearing. Son states that yesterday when he was closer to his baseline, he knew who his son was, knew the year, and the place. PFSH PFSH Medical History Atherosclerosis of coronary artery of [place] heart without angina pectoris DVT (deep venous thrombosis) DVT (deep venous thrombosis) Essential hypertension Factor V Leiden mutation History of pulmonary embolism Hyperlipidemia Hypertension Intracerebral hemorrhage (01/2019) Nonspecific abnormal unspecified cardiovascular function study Orthostatic dizziness Paroxysmal ventricular tachycardia Pleural effusion Smoker Home Medications amlodipine 5 mg tablet 5 mg PO DAILY BLOOD PRESSURE 11/19/22 [History Last Taken Unknown] atorvastatin 40 mg tablet 40 mg PO DAILY CHOLESTEROL 11/19/22 [History Last Taken Unknown] buspirone 5 mg tablet 5 mg PO DAILY DEPRESSION/ANXIETY 11/19/22 [History Last Taken Unknown] lisinopril 20 mg tablet 20 mg PO DAILY BLOOD PRESSURE 11/19/22 [History Last Taken Unknown] warfarin 5 mg tablet 7.5 mg PO DAILY BLOOD THINNER 11/19/22 [History Last Taken Unknown] Allergy/AdvReac Type Severity Reaction Status Date / Time Sulfa (Sulfonamide Allergy Rash Verified 12/01/22 17:58 Antibiotics) eptifibatide AdvReac Severe Hit Verified 12/01/22 17:58 [From Integrilin] heparin AdvReac Severe HIT Verified 12/01/22 17:58 warfarin [From Coumadin] AdvReac Severe Spont. Verified 12/01/22 17:58 intracerebral Bleeding Family History Sister CVA (cerebral vascular accident) Father Factor 5 Leiden mutation, heterozygous Surgical History History of bilateral inguinal hernia repair History of coronary artery stent placement (04/22/05) History of tonsillectomy Presence of IVC filter Social History (Updated 12/01/22 @ 18:[address] Kaiden Quinn MD) housing: retirement Smoking Status: Current every day smoker tobacco type: pipe other: 5 bowls a day second hand exposure: No alcohol intake: current alcohol intake frequency: a few times a week Alcohol type: beer and wine substance use type: does not use caffeine: Yes Type: coffee Number of servings: 1 what type of physical activity do you participate in: none pauly/yazidism: Apostolic seatbelt use: always ROS ROS ED Review of Systems ROS Unobtainable: due to mental status EXAM Physical Exam Const Vital Signs: 12/01/22 17:59 12/01/22 18:02 12/01/22 18:22 Temperature 97.7 F L 97.7 F L Temperature Source Temporal Temporal Pulse Rate 70 68 Respiratory Rate 18 18 Blood Pressure 140/75 H 140/75 H Blood Pressure Mean 96 96 Pulse Ox 97 98 Oxygen Delivery Method Room Air Room Air Room Air 12/01/22 18:22 12/01/22 19:02 12/01/22 20:02 Temperature 97.6 F L 98.4 F 98.1 F Temperature Source Temporal Temporal Temporal Pulse Rate 78 70 67 Respiratory Rate 16 16 16 Blood Pressure 143/78 H 152/75 H 161/90 H Blood Pressure Mean 99 100 113 Pulse Ox 95 93 93 Oxygen Delivery Method Room Air Room Air Room Air 12/01/22 20:50 Temperature 98.2 F Temperature Source Temporal Pulse Rate 70 Respiratory Rate 16 Blood Pressure 153/86 H Blood Pressure Mean 108 Pulse Ox 93 Oxygen Delivery Method Room Air Positive well nourished and well developed General Appearance ED: well developed and NAD HEENT Reports moist mucous membranes HEENT Narrative: Very hard of hearing despite hearing aids normocephalic and atraumatic Eyes PERRL and EOMs intact bilaterally Eyes Narrative: No gross visual field deficits Neck full ROM and supple Resp normal respiratory effort and clear to auscultation bilaterally Cardio regular rate and regular rhythm GI non-tender and non-distended Auscultation: normoactive bowel sounds Palpation: soft Narrative: Ford catheter in place, transparent yellow urine seen within it no blood. Back/Spine no CVA tenderness General Back: other FROM Extremity normal to inspection Extremity Narrative: No pain with ranging both shoulders or other joints General Extremety ED: Yes edema; Negative for pulses abnormal or tenderness General Extremity: edema bilateral lower extremity Details: mild (With changes consistent with chronic stasis dermatitis more on the left lower leg); Negative for pulses abnormal Neuro CN's II-XII intact bilaterally and no sensory deficits noted Neuro Narrative: Follows commands. Limited exam due to extreme difficulty hearing. Sensorium / Orientation: awake, alert and orientation impaired Motor Exam: general weakness Skin no rashes or lesions noted and no wounds MDM MDM MDM Narrative Medical decision making narrative: Differential here includes metabolic phenomenon, infectious, intracerebral hemorrhage given the fact that he is anticoagulated and recently had 1. Therefore he was sent as a protocol stroke CT, to get a quick interpretation regarding acute hemorrhage or not. The radiologist called me, and I reviewed the films. My interpretation of the CT agrees with that of the radiologist. He feels confident this is residual blood from his recent hemorrhage, there is no intraventricular hemorrhage now, and it appears to be an evolving old stroke with nothing acute. Furthermore, he does have a nonspecific leukocytosis of 15.8, but no signs of infectious etiology here. I did send a urine culture anyway since he recently had urine infection treatment and has an indwelling catheter. The rest of his work-up is unremarkable including cardiac. On repeat evaluation, and discussion with the son who has been at the bedside the whole time, the patient is acting better than he was earlier. He is anxious about things such as his condition, insurance coverage etc. He states this is more reassuring. He agrees that the patient does not require admission right now for any of these things and is very reassured, asking for something for anxiety for him and maybe that will help his recovery. I am not comfortable prescribing him something going forward since he will be under the care of another physician at a retirement but I am comfortable giving him a single dose of Vistaril right now prior to discharge back to the retirement his vital signs are stable and normal. He is well-appearing. It is possible this is anxiety-related, it is also possible that this is waxing and waning of his mental status related to his recent hemorrhagic stroke. Lab Data Attestation: I reviewed the patient's lab results. Labs: Laboratory Results - last 24 hr 12/01/22 12/01/22 12/01/22 18:27 18:30 18:30 WBC 15.8 H RBC 4.71 Hgb 13.7 Hct 42.1 MCV 89.4 MCH 29.1 MCHC 32.5 RDW Std Deviation 42.7 RDW Coeff of Jason 13.1 Plt Count 504 H MPV 10.0 Immature Gran % (Auto) 0.600 Neut % (Auto) 80.5 H Lymph % (Auto) 9.7 L [place] % (Auto) 7.2 Eos % (Auto) 1.7 Baso % (Auto) 0.3 Absolute Neuts (auto) 12.7 H Absolute Lymphs (auto) 1.52 Nucleated RBC % 0 PT 14.9 INR 1.2 APTT 30.4 Sodium Potassium Chloride Carbon Dioxide Anion Gap BUN Creatinine Estim Creat Clear Calc Est GFR (MDRD) Af Amer Est GFR (MDRD) Non-Af BUN/Creatinine Ratio Glucose Calcium Troponin I High Sens Urine Color Urine Clarity Urine pH Ur Specific [place] Urine Protein Urine Glucose (UA) Urine Ketones Urine Occult Blood Urine Nitrite Urine Bilirubin Urine Urobilinogen Ur Leukocyte Esterase Urine RBC Urine WBC Ur Squamous Epith Cells Amorphous Sediment Urine Bacteria Urine Mucus POC Glucose 143 H 12/01/22 12/01/22 18:30 18:42 WBC RBC Hgb Hct MCV MCH MCHC RDW Std Deviation RDW Coeff of Jason Plt Count MPV Immature Gran % (Auto) Neut % (Auto) Lymph % (Auto) [place] % (Auto) Eos % (Auto) Baso % (Auto) Absolute Neuts (auto) Absolute Lymphs (auto) Nucleated RBC % PT INR APTT Sodium 139 Potassium 4.4 Chloride 105 Carbon Dioxide 27.0 Anion Gap 7 BUN 27 H Creatinine 0.87 Estim Creat Clear Calc 63.01 Est GFR (MDRD) Af Amer 109 Est GFR (MDRD) Non-Af 90 BUN/Creatinine Ratio 31.1 H Glucose 134 H Calcium 8.6 Troponin I High Sens 4 Urine Color Yellow Urine Clarity Sl. Cloudy Urine pH 6.0 Ur Specific [place] 1.025 Urine Protein 100 H Urine Glucose (UA) Normal Urine Ketones 5 H Urine Occult Blood 50 H Urine Nitrite Negative Urine Bilirubin Negative Urine Urobilinogen 1 H Ur Leukocyte Esterase 25 H Urine RBC 0-5 SEEN Urine WBC 0-5 SEEN Ur Squamous Epith Cells 0-5 SEEN Amorphous Sediment 1+ URATE Urine Bacteria 0 SEEN Urine Mucus 1+ POC Glucose Radiography Diagnostic Testing: Clinical Impression(s) from Imaging Studies Brain CT 12/01/22 18:20 IMPRESSION: 1. Interval decrease in size of a right occipital hemorrhage. There is a small amount of surrounding edema. There is no intraventricular hemorrhage on today''s exam. 2. No acute intracranial abnormality. There is a stable remote left frontal lobe infarct. There is a stable left cerebellar infarct. There are stable underlying senescent change with small vessel ischemia. 3. Aspects score 10. Electronically Signed: Armin Abernathy MD at 18:42 EST , ADDENDUM: 12/01/22 1854 IMPRESSION: 1. Interval decrease in size of a right occipital hemorrhage. There is a small amount of surrounding edema. There is no intraventricular hemorrhage on today''s exam. 2. No acute intracranial abnormality. There is a stable remote left frontal lobe infarct. There is a stable left cerebellar infarct. There are stable underlying senescent change with small vessel ischemia. 3. Aspects score 10. N.B. : The above Results were Read Back by Armin Abernathy MD to Kaiden Quinn MD, and understanding confirmed on 12/01/2022 18:47:54 (ET). Electronically Signed: Armin Abernathy MD at 18:42 EST , Chest X-Ray 12/01/22 18:30 IMPRESSION: Pulmonary hyperinflation with emphysematous change in the lung apices.. There is no acute pulmonary abnormality. There has been no significant change from the reference exam. Electronically Signed: Armin Abernathy MD at 19:06 EST , Rhythm Strip Rhythm Strip: Sinus Rhythm Rate: 65 Ectopy: None EKG Initial EKG: Attestation: I personally reviewed and interpreted this EKG as follows: Interpretation: Sinus Rhythm, No Acute Injury Pattern and LAFB Prior EKG tracings: available for review Prior: Unchanged Discharge Plan Triage Chief Complaint: Confusion ED Provider: Kaiden Quinn Dx/Rx/DC Orders Clinical Impression: Encephalopathy, Anticoagulated, Anxiety Instructions: ED ALOC Prescriptions: No Action atorvastatin 40 mg tablet 40 mg PO DAILY warfarin 5 mg tablet 7.5 mg PO DAILY buspirone 5 mg tablet 5 mg PO DAILY lisinopril 20 mg tablet 20 mg PO DAILY amlodipine 5 mg tablet 5 mg PO DAILY Primary Care Provider: Roge Rollins Referrals: Roge Rollins MD [Primary Care Provider] - As soon as possible (Or whoever is responsible for him at care home facility currently) Activity Restrictions/Additional Instructions: Patient had CT showing nothing acute, his old hemorrhage is resolving, and work-up showing no signs of acute infection. We did send a urine culture. His mental status improved during his ED visit, and he was having some anxiety about a couple things. Son is asking about anxiety medication, we gave him a dose of Vistaril here prior to discharging him back, please discuss with responsible physician concerning possible ongoing pharmacologic treatment for anxiety. Disposition Disposition: Home, Self Care
--- NOTE | 2022-12-01 18:30 | RAD_ITS ---
EXAM: XR CHEST, 1 VIEW CLINICAL INDICATION: altered mental status TECHNIQUE: Frontal view of the chest. This report was created using [employer] report generation technology. COMPARISON: 11/19/2022 FINDINGS: LUNGS AND PLEURAL SPACES: Lungs are hyperinflated. There is flattening of the diaphragm with emphysematous change in the lung apices. No pneumothorax. No effusion. HEART: Unremarkable. Cardiac silhouette not enlarged. MEDIASTINUM: Central airways and mediastinal contour are unremarkable. BONES/JOINTS: Unremarkable. SOFT TISSUES: Unremarkable. RAD/Chest 1 View IMPRESSION: Pulmonary hyperinflation with emphysematous change in the lung apices.. There is no acute pulmonary abnormality. There has been no significant change from the reference exam. Electronically Signed: Armin Abernathy MD at 19:06 EST ,
[2022-12-01 18:38] LABS: Absolute Lymphocyte Count 1.52 X10^3/uL (0.83-4.51); Absolute Neutrophil Count 12.7 X10^3/uL (2.0-7.7); Basophil# 0.05 X10^3/uL; Basophil% 0.3 % (0-1); Eosinophil# 0.27 X10^3/uL; Eosinophils% 1.7 % (0-5); Hematocrit 42.1 % (40-54); Hemoglobin 13.7 g/dL (13.0-16.5); Lymphocyte # 1.52 X10^3/ul (0.83-4.51); Lymphocyte % 9.7 % (19-41); Mean Corp Hgb Conc 32.5 g/dL (32-36); Mean Corpuscular Hgb 29.1 pg (27.0-32.0); Mean Corpuscular Volume 89.4 fL (80-94); Monocyte# 1.14 X10^3/uL; Monocyte% 7.2 % (0-10); NRBC Flagged by Analyzer 0 % (0-5); Neutrophil # 12.67 X10^3/uL (2.7-7.7); Neutrophil % 80.5 % (47-70); Platelet Count 504 K/mm3 (150-450); RBC Distribution Width CV 13.1 % (11.6-14.6); RBC Distribution Width SD 42.7 fl (35.1-43.9); Red Blood Count 4.71 M/mm3 (4.6-6.2); White Blood Count 15.8 K/mm3 (4.4-11.0)
[2022-12-01 18:46] LABS: Bedside Glucose 143 mg/dL (74-106)
[2022-12-01 18:52] LABS: Bacteria 0 SEEN /hpf (None Seen)
[2022-12-01 18:55] LABS: Anion Gap 7 (5-15); BUN 27 mg/dL (7-18); BUN/Creat Ratio 31.1 RATIO (10-20); Calcium,Total 8.6 mg/dL (8.5-10.1); Chloride 105 mmol/L (98-107); Creatinine, Serum 0.87 mg/dL (0.70-1.30); EST Glomerular Filtration Rate 90 mL/min (>60); Est Glom Filt Rate - Afr Amer 109 mL/min (>60); Estimated Creatinine Clearance 63.01 ml/min; Glucose 134 mg/dL (74-106); Potassium 4.4 mmol/L (3.5-5.1); Sodium Level 139 mmol/L (136-145); Troponin-I HS 4 pg/mL (3.0-78.0)
[2022-12-01 18:56] LABS: Color, Urine Yellow (Yellow); Glucose, Dipstick Normal (Normal); Ketone-Dipstick 5 mg/dl (Negative); Leukocyte Esterase-Dipstick 25 /ul (Negative); Nitrite-Dipstick Negative (Negative); Occult Blood-Urine 50 /ul (Negative); Protein-Dipstick 100 mg/dl (Negative); Specific Gravity, Urine 1.025 (1.002-1.030); Urine Bilirubin Dipstick Negative (Negative); Urine Clarity Sl. Cloudy (Clear); Urine Urobilinogen 1 mg/dl (Normal)
[2022-12-01 19:02] VITALS: BP 152/75; PULSE 70; RESP 16; TEMP 36.9; O2SAT 93
[2022-12-01 19:04] LABS: Amorphous Sediment 1+ URATE; Mucous, Urine 1+ /hpf (<or=2+); Red Blood Cells-Urine 0-5 SEEN /hpf (0-5); Squamous Epithelial Cells - UA 0-5 SEEN /hpf (0-5); White Blood Cells 0-5 SEEN /hpf (0-5)
[2022-12-01 19:14] LABS: International Normalized Ratio 1.2; Partial Thromboplast Time 30.4 Seconds (24.1-36.2); Prothrombin Time (Protime)PT. 14.9 SECONDS (11.7-14.9)
[2022-12-01 20:02] VITALS: BP 161/90; PULSE 67; RESP 16; TEMP 36.7; O2SAT 93
[2022-12-01 20:50] VITALS: BP 153/86; PULSE 70; RESP 16; TEMP 36.8; O2SAT 93
[2022-12-01] MEDS: hydrOXYzine PAM 25 MG Capsule 50 MG PO (21:07)
[2022-12-01 21:08] VITALS: BMI 19.8
== END 2022-12-01 22:34 | disposition skilled nursing facility (03) ==
PROVIDERS: Emergency Provider Emergency Medicine; PCP Family Medicine; Visit Provider Emergency Medicine
DX: G93.40 Encephalopathy, unspecified (principal); D68.51 Activated protein C resistance; I10 Essential (primary) hypertension; F41.9 Anxiety disorder, unspecified; E78.5 Hyperlipidemia, unspecified; I25.10 Atherosclerotic heart disease of native coronary artery without angina pectoris; F17.290 Nicotine dependence, other tobacco product, uncomplicated; Z95.5 Presence of coronary angioplasty implant and graft; Z79.01 Long term (current) use of anticoagulants; Z79.899 Other long term (current) drug therapy; Z86.73 Personal history of transient ischemic attack (TIA), and cerebral infarction without residual deficits; Z86.711 Personal history of pulmonary embolism; Z86.718 Personal history of other venous thrombosis and embolism
CPT/HCPCS: 70450; 71045; 80048; 81001; 82962; 84484; 85025; 85610; 85730; 87086; 93005; 99285; A4216

== ENCOUNTER → 2022-12-20 | Outpatient (CLI) | payer MEDICARE, OTHER, SELFPAY ==
--- NOTE | 2022-12-20 08:08 | US_ITS ---
ACR Level 3 findings have been noted. An addendum which confirms receipt of the report will follow. INDICATION: THYROID NODULE EXAMINATION: Ultrasound US Thyroid (eg thyroid, parathyroid, parotid) TECHNIQUE: Glynn scale and color doppler imaging was performed of the thyroid gland. COMPARISON: None. FINDINGS: RIGHT THYROID LOBE: 4.6 x 2.5 x 1.8 cm. Homogeneous echotexture with normal vascularity. [Heterogenous but largely solid nodule lower pole measures 2.7 x 2.1 x 1.8 cm. Lesion shows regular margins and is wider than tall without internal echogenic foci. LEFT THYROID LOBE: 3.4 x 1.6 x 1.4 cm. Homogeneous echotexture with normal vascularity. [4 scattered subcentimeter nodules ranging from 3 to 6 mm with mixed solid and cystic echotexture and irregular margins. ISTHMUS: 4 mm. No thyroid nodules are present. US/Thyroid IMPRESSION: Dominant 2.7 cm nodule lower pole right lobe thyroid. TIRADS Category 3 or mildly suspicious. Due to size fine-needle aspiration is recommended. Remaining nodules may be followed up annually. Electronically Signed: Lizandro Gonzalez MD at 17:46 EST ,
== END | disposition home or self-care (01) ==
LOC: US 08:04
PROVIDERS: PCP Family Medicine
DX: E04.1 Nontoxic single thyroid nodule (principal)
CPT/HCPCS: 76536

== ENCOUNTER → 2023-02-21 | Outpatient (CLI) | payer MEDICARE, OTHER, SELFPAY ==
--- NOTE | 2023-02-21 13:00 | MRI_ITS ---
HISTORY: Intraparenchymal hemorrhage with interventricular hemorrhage follow-up. TECHNIQUE: Multiplanar and multisequence MR images of the brain were obtained before and after the intravenous administration of 12 cc Clariscan. 343 images. COMPARISON: CT 12/01/2022, 11/20/2022. MRI 10/02/2021. FINDINGS: BRAIN PARENCHYMA: Mild encephalomalacia and hemosiderin in the right occipital lobe with ex vacuo dilatation of the occipital horn. Chronic left frontal encephalomalacia with chronic minimal linear enhancement. Old blood products again seen in the left frontal encephalomalacia and right parietal temporal cortex. Faint small focus of restricted diffusion in the left temporal lobe. Advanced chronic white matter changes. Small right temporal cyst again seen. CSF SPACES: Small focus of susceptibility artifact, restricted diffusion, and mild T1 hyperintensity with mild linear enhancement in the occipital horn of the right lateral ventricle from subacute-chronic intraventricular hemorrhage. Advanced generalized volume loss. No significant midline shift or other mass effect. VASCULAR SYSTEM: Major intracranial flow voids are maintained. PARANASAL SINUSES AND MASTOID AIR CELLS: Mild paranasal sinus because of thickening. ORBITS: Symmetric contents. MRI/Brain W/WO Contrast IMPRESSION: Mild right occipital encephalomalacia with chronic hemorrhage and trace adjacent subacute-chronic intraventricular hemorrhage. Mild linear enhancement. Recommend follow-up. Chronic left frontal encephalomalacia with old hemorrhage and mild linear enhancement. Chronic right parietal temporal hemorrhage. Advanced chronic involutional and white matter changes. Electronically Signed: Gely Funk MD at 13:46 EDT ,
[2023-02-21 14:24] LABS: CREATININE FINGERSTICK 0.9 mg/dL (0.70-1.30); EGFR FINGERSTICK > 60 mL/min (>60)
== END | disposition home or self-care (01) ==
LOC: MRI 12:25
PROVIDERS: PCP Family Medicine
DX: I61.9 Nontraumatic intracerebral hemorrhage, unspecified (principal)
CPT/HCPCS: 70553; A9575

== ENCOUNTER → 2023-07-26 | Outpatient (CLI) | payer MEDICARE, OTHER, SELFPAY ==
[2023-07-26 11:53] LABS: AST(SGOT) 25 U/L (15-37); Alanine Aminotransfer ALT/SGPT 28 U/L (16-61); Albumin, Serum 3.2 g/dL (3.2-5.0); Alkaline Phosphatase 96 U/L (45-117); Bilirubin, Direct 0.22 mg/dL (0.00-0.30); Cholesterol 114 mg/dL (200); Globulin 3.2 g/dL (2.2-4.2); High Density Lipoprotein 56 mg/dL; Protein, Total 6.4 g/dL (6.4-8.2); Triglycerides 61 mg/dL; Very Low Density Lipoprotein 12 mg/dL (5-40)
== END | disposition home or self-care (01) ==
LOC: MTLAB 10:43 → LAB 10:43
PROVIDERS: PCP Family Medicine; Referring Provider Nurse Practitioner Family; Visit Provider Nurse Practitioner Family
DX: I61.9 Nontraumatic intracerebral hemorrhage, unspecified (principal); E78.5 Hyperlipidemia, unspecified; Z95.5 Presence of coronary angioplasty implant and graft
CPT/HCPCS: 36415; 80061; 80076

== ENCOUNTER → 2024-03-30 | Outpatient (CLI) | payer MEDICARE, OTHER, SELFPAY ==
[2024-03-30 12:18] LABS: Hematocrit 43.6 % (40-54); Hemoglobin 14.6 g/dL (13.0-16.5); Mean Corp Hgb Conc 33.5 g/dL (32-36); Mean Corpuscular Hgb 30.7 pg (27.0-32.0); Mean Corpuscular Volume 91.6 fL (80-94); Mean Platelet Vol. 11.4 fl (6.2-12.0); Platelet Count 228 K/mm3 (150-450); RBC Distribution Width CV 14.3 % (11.6-14.6); RBC Distribution Width SD 48.3 fl (35.1-43.9); Red Blood Count 4.76 M/mm3 (4.6-6.2); White Blood Count 5.5 K/mm3 (4.4-11.0)
[2024-03-30 12:40] LABS: Vitamin B12 257 pg/mL (211-911)
[2024-03-30 13:12] LABS: AST(SGOT) 25 U/L (15-37); Alanine Aminotransfer ALT/SGPT 24 U/L (16-61); Albumin, Serum 3.3 g/dL (3.2-5.0); Alkaline Phosphatase 94 U/L (45-117); Bilirubin, Direct 0.23 mg/dL (0.00-0.30); Cholesterol 123 mg/dL (200); High Density Lipoprotein 58 mg/dL; Protein, Total 6.3 g/dL (6.4-8.2); Triglycerides 51 mg/dL; Very Low Density Lipoprotein 10 mg/dL (5-40)
[2024-03-30 13:18] LABS: AST(SGOT) 27 U/L (15-37); Alanine Aminotransfer ALT/SGPT 25 U/L (16-61); Albumin, Serum 3.2 g/dL (3.2-5.0); Alkaline Phosphatase 97 U/L (45-117); Anion Gap 6 (5-15); BUN 18 mg/dL (7-18); BUN/Creat Ratio 16.2 RATIO (10-20); Calcium,Total 8.5 mg/dL (8.5-10.1); Chloride 108 mmol/L (98-107); Creatinine, Serum 1.11 mg/dL (0.70-1.30); EST Glomerular Filtration Rate 68 mL/min (>60); Est Glom Filt Rate - Afr Amer 82 mL/min (>60); Globulin 3.2 g/dL (2.2-4.2); Glucose 82 mg/dL (74-106); Protein, Total 6.4 g/dL (6.4-8.2); Sodium Level 139 mmol/L (136-145); Thyroid Stim Hormone (TSH) 2.51 uIU/mL (0.358-3.74)
[2024-04-02 11:10] LABS: Vitamin B1, Thiamine 99.8 nmol/L (66.5-200.0)
== END | disposition home or self-care (01) ==
LOC: MTLAB 10:30
PROVIDERS: Nurse Practitioner Family; PCP Family Medicine; Referring Provider Psychiatry & Neurology Neurology; Visit Provider Psychiatry & Neurology Neurology
DX: F01.50 Vascular dementia, unspecified severity, without behavioral disturbance, psychotic disturbance, mood disturbance, and anxiety (principal); E78.00 Pure hypercholesterolemia, unspecified
CPT/HCPCS: 36415; 80053; 80061; 80076; 82607; 82746; 84425; 84443; 85027

== ENCOUNTER → 2024-04-12 | Outpatient (CLI) | payer MEDICARE, OTHER, SELFPAY ==
--- NOTE | 2024-04-12 10:15 | MRI_ITS ---
STUDY: MRI BRAIN WITHOUT CONTRAST REASON FOR EXAM: Male, 78 years old. dementia TECHNIQUE: Standardized multiplanar fat and water weighted pulse sequences were obtained. COMPARISON: MRI of the brain dated February 21, 2023. Head CT dated December 01, 2022 FINDINGS: There is mild cerebral atrophy with widening of the extra-axial spaces and ventricular dilatation. There are multiple white matter hyperintensities, distributed throughout the deep white matter tracts of the cerebral hemispheres, consistent with moderate chronic white matter ischemic changes. There is no evidence for recent intracranial ischemia or other cause of cytotoxic edema on diffusion weighted imaging (DWI). Old petechial microhemorrhage in the cortices of the previously infarcted left frontal lobe with associated moderate parenchymal loss and gliotic signal. This is unchanged from the prior brain MRI. No acute intraparenchymal hemorrhage is present. Normal bilateral basal ganglia. Normal thalami. There is no extra-axial fluid accumulation. Normal flow voids within the major intracranial circulation suggesting patency by spin echo criteria. Normal sella turcica, pituitary gland, infundibular stalk, optic chiasm and hypothalamus. Normal tectal plate and pineal gland. Normal midbrain, kemal and medulla. Normal cerebellum. Normal basal cisterns. Normal bilateral temporal bones. Normal bilateral internal auditory canals. No demonstrated orbital abnormality, within the constraints of a routine brain study. There is mucoperiosteal inflammatory disease of the paranasal sinuses consistent with mild chronic sinusitis. Normal calvarium and skull base. Normal visualized soft tissue structures. Normal visualized upper cervical spine. MRI/Brain without Contrast IMPRESSION: 1. Involutional and chronic ischemic changes of the brain, as described above. 2. Old petechial microhemorrhage in the cortices of the previously infarcted left frontal lobe with associated moderate parenchymal loss and gliotic signal. This is unchanged from the prior brain MRI. No acute intraparenchymal hemorrhage is present. Electronically Signed: Santiago Isabel MD at 12:13 EDT ,
== END | disposition home or self-care (01) ==
LOC: MRI 09:58
PROVIDERS: PCP Family Medicine; Referring Provider Psychiatry & Neurology Neurology; Visit Provider Psychiatry & Neurology Neurology
DX: F03.90 Unspecified dementia, unspecified severity, without behavioral disturbance, psychotic disturbance, mood disturbance, and anxiety (principal)
CPT/HCPCS: 70551

== ENCOUNTER → 2024-06-03 | Outpatient (CLI) | payer MEDICARE, OTHER, SELFPAY ==
[2024-06-03 17:19] LABS: Absolute Lymphocyte Count 1.68 X10^3/uL (0.83-4.51); Absolute Neutrophil Count 3.5 X10^3/uL (2.0-7.7); Basophil# 0.05 X10^3/uL; Basophil% 0.8 % (0-1); Eosinophil# 0.34 X10^3/uL; Eosinophils% 5.6 % (0-5); Hematocrit 43.2 % (40-54); Hemoglobin 13.8 g/dL (13.0-16.5); Lymphocyte # 1.68 X10^3/ul (0.83-4.51); Lymphocyte % 27.6 % (19-41); Mean Corp Hgb Conc 31.9 g/dL (32-36); Mean Corpuscular Hgb 29.7 pg (27.0-32.0); Mean Corpuscular Volume 93.1 fL (80-94); Mean Platelet Vol. 11.8 fl (6.2-12.0); Monocyte# 0.51 X10^3/uL; Monocyte% 8.4 % (0-10); NRBC Flagged by Analyzer 0 % (0-5); Neutrophil # 3.49 X10^3/uL (2.7-7.7); Neutrophil % 57.4 % (47-70); Platelet Count 216 K/mm3 (150-450); RBC Distribution Width SD 51.4 fl (35.1-43.9); Red Blood Count 4.64 M/mm3 (4.6-6.2); White Blood Count 6.1 K/mm3 (4.4-11.0)
[2024-06-03 18:02] LABS: ALB/GLOB Ratio 0.9 RATIO (0.9-2.4); AST(SGOT) 45 U/L (15-37); Alanine Aminotransfer ALT/SGPT 56 U/L (16-61); Albumin, Serum 2.8 g/dL (3.2-5.0); Alkaline Phosphatase 90 U/L (45-117); Anion Gap 3 (5-15); BUN 18 mg/dL (7-18); BUN/Creat Ratio 19.1 RATIO (10-20); Calcium,Total 8.4 mg/dL (8.5-10.1); Chloride 110 mmol/L (98-107); Cholesterol 114 mg/dL (200); Creatinine, Serum 0.94 mg/dL (0.70-1.30); EST Glomerular Filtration Rate 82 mL/min (>60); Est Glom Filt Rate - Afr Amer 99 mL/min (>60); Globulin 3.1 g/dL (2.2-4.2); Glucose 97 mg/dL (74-106); High Density Lipoprotein 60 mg/dL; PSA,Total - Annual Screen 0.61 ng/mL (0.00-4.00); Potassium 3.7 mmol/L (3.5-5.1); Protein, Total 5.9 g/dL (6.4-8.2); Sodium Level 142 mmol/L (136-145); Thyroid Stim Hormone (TSH) 2.19 uIU/mL (0.358-3.74); Triglycerides 74 mg/dL; Very Low Density Lipoprotein 15 mg/dL (5-40)
[2024-06-03 18:35] LABS: Hepatitis C Antibody Non-Reactive (Nonreactive); Vitamin D,25 Hydroxy 82.5 ng/mL
== END | disposition home or self-care (01) ==
LOC: POLAB3 16:38
PROVIDERS: PCP Family Medicine Geriatric Medicine; Visit Provider Family Medicine Geriatric Medicine
DX: I10 Essential (primary) hypertension (principal); E78.5 Hyperlipidemia, unspecified; R63.4 Abnormal weight loss; E55.9 Vitamin D deficiency, unspecified; Z13.89 Encounter for screening for other disorder; Z12.5 Encounter for screening for malignant neoplasm of prostate
CPT/HCPCS: 36415; 80053; 80061; 82306; 84153; 84443; 85025; 86803; G0103

== ENCOUNTER → 2024-06-04 | Outpatient (CLI) | payer MEDICARE, OTHER, SELFPAY ==
--- NOTE | 2024-06-04 07:08 | CT_ITS ---
STUDY: CT CHEST, ABDOMEN T PELVIS WITH CONTRAST REASON FOR EXAM: Male, 78 years old. COPD, WEIGHT LOSS RADIATION DOSAGE (If Supplied By Facility): CTDIvol = ( 9.18 ) mGy, DLP = ( 592.86 ) mGycm TECHNIQUE: Transaxial imaging was performed following intravenous administration of Oral and amp; IV Gastrografin and amp; 75mL Isovue-300. Multiplanar coronal and sagittal images were reformatted. Individualized dose optimization techniques were used for this CT. COMPARISON: Prior study dated: Chest CT performed 10/28/2017 FINDINGS: CHEST Lungs/pleura: The central airways are patent. Moderate centrilobular and paraseptal emphysema. There is no consolidation. No pulmonary nodules are identified. There is no demonstrated pleural abnormality. No pneumothorax. Mediastinum: Normal heart size. No pericardial effusion. Coronary artery calcifications are seen. Normal mediastinum. Normal hilar regions. Normal central and segmental pulmonary arteries. Normal aorta arch and descending thoracic aorta. Chest wall: No axillary lymphadenopathy or chest wall mass. ABDOMEN/PELVIS Liver/gallbladder/biliary tree: The liver is normal in size, shape, and attenuation. No biliary ductal dilatation. There is a 6.6 cm mass in segment 5 of the liver which shows early peripheral nodular enhancement and progressive filling in of enhancement, consistent with a hemangioma. Multiple hepatic cysts are also seen. No suspicious mass. Normal gallbladder and extrahepatic biliary system. Pancreas: Normal pancreas. Spleen: Normal in size. No splenic lesion. Adrenal glands: Normal bilateral adrenal glands. Kidneys: Normal size and positioning of the kidneys without hydronephrosis or nephrolithiasis. There are multiple bilateral simple cysts. Additionally there is a mass at the lower pole of the right kidney measuring 3 cm. This has mixed attenuation, but is mostly solid. This is not in the [id number] of prior chest CT . GI tract: Normal visualized stomach. Normal small intestine. No colonic wall thickening or inflammation. Stool distends the rectum. The appendix is visualized and appears normal. Lymphovascular: Normal caliber aorta with moderate atherosclerotic calcifications. There is an IVC filter in place. Normal retroperitoneum. No retroperitoneal or mesenteric lymphadenopathy. Abdominal wall: Normal abdominal wall. Bladder: Normal urinary bladder. Pelvic viscera: There is no pelvic fluid. There is no pelvic lymphadenopathy or mass lesion. OSSEOUS STRUCTURES No acute or suspicious osseous abnormality. Mild degenerative changes throughout the spine. Chronic midthoracic vertebral body compression deformities. Mild height loss of the T3 vertebral body is new from 2018. There is approximately 20% loss of vertebral body height. CT/CT Chest, Abd, Pel w/Contrast IMPRESSION: 1. Right lower pole 3 cm renal mass. This is concerning for neoplasm. 2. No lymphadenopathy. 3. Moderate emphysema. Pulmonary emphysema is an independent risk factor for lung cancer. Consider patient for low-dose chest CT lung cancer screening in the future. 4. IVC filter present. Recommend assessment if there is a management plan in place for the filter. If there is no plan in place, suggest referral to interventional clinician on a nonemergent basis for evaluation. 5. Hepatic hemangioma noted. No suspicious liver mass. 6. Mild height loss of the T3 vertebral body, uncertain chronicity but new since 2018. Electronically Signed: Javid Crowley MD at 10:07 EDT ,
== END | disposition home or self-care (01) ==
LOC: CT 07:05
PROVIDERS: PCP Family Medicine Geriatric Medicine; Referring Provider Family Medicine Geriatric Medicine; Visit Provider Family Medicine Geriatric Medicine
DX: J44.9 Chronic obstructive pulmonary disease, unspecified (principal); R63.4 Abnormal weight loss
CPT/HCPCS: 71260; 74177; Q9967

== ENCOUNTER 2024-07-31 08:05 | Inpatient (IN) | payer MEDICARE, OTHER, SELFPAY ==
[2024-07-31] VITALS (13 sets, daily range): BP systolic 100–174; BP diastolic 59–82; PULSE 49–62; RESP 16–24; TEMP 36.5–37; O2SAT 95–98; BMI 17.3; BMI 17.4
--- NOTE | 2024-07-31 08:17 | CT_ITS ---
EXAM: CT HEAD WITHOUT INTRAVENOUS CONTRAST CLINICAL INDICATION: Confusion/agitation. History of intracranial hemorrhage. TECHNIQUE: Multiple axial images were obtained of the head without intravenous contrast. This CT exam was performed using one or more of the following dose reduction techniques: automated exposure control, adjustment of the mA and/or kV according to patient size, and/or use of iterative reconstruction technique. RADIATION DOSE: CTDIvol = 44.99 mGy, DLP = 812.98 mGy-cm COMPARISON: CT head without contrast 12/01/2022. FINDINGS: BRAIN AND EXTRA-AXIAL SPACES: Cystic atrophy of the hemorrhagic ischemic infarct around the right calcarine fissure with ex vacuo dilatation of the occipital horn of right lateral ventricle. Dilated ventricles due to cerebral atrophy. Cystic encephalomalacia and atrophy in the left frontal lobe. Confluent hypodensities in the forceps minor and right posterior periventricular white matter due to chronic white matter ischemic changes. No intracranial mass or mass effect. Posterior fossa structures are unremarkable. No hydrocephalus. Basal cisterns are patent. BONES/JOINTS: Unremarkable. No discrete lytic or blastic abnormalities. SINUSES: Unremarkable as visualized. Clear. MASTOID AIR CELLS: Unremarkable. Clear. ORBITS: Visualized globes, extraocular muscles, optic nerves and retrobulbar fat appear unremarkable. CT/Brain/Head without Contrast IMPRESSION: 1. No CT evidence of intracranial bleeding, acute ischemic infarct or acute intracranial abnormality. 2. Cystic atrophy of previous hemorrhagic ischemic infarct around the right calcarine fissure with ex vacuo dilatation of the central horn of the right lateral ventricle when compared to 12/01/2022. 3. 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 4. Confluent chronic white matter changes in both cerebral hemispheres. Electronically Signed: uHnter Almaraz MD at 9:08 EDT ,
--- NOTE | 2024-07-31 08:18 | RAD_ITS ---
EXAM: XR CHEST, 2 VIEWS CLINICAL INDICATION: SOB TECHNIQUE: Frontal and lateral views of the chest. COMPARISON: 12/01/2022. FINDINGS: LUNGS AND PLEURAL SPACES: Pulmonary hyperinflation and flattening of the hemidiaphragms. No suspicious infiltrates, consolidation or edema. No pneumothorax. No effusion. HEART: Unremarkable. Cardiac silhouette not enlarged. MEDIASTINUM: Central airways and mediastinal contour are unremarkable. BONES/JOINTS: Moderate old anterior wedge compression fractures of the T5, T6 vertebral bodies and minimal old anterior wedging of the upper T7 and T8 vertebral bodies. SOFT TISSUES: Unremarkable. RAD/Chest PA and Lateral IMPRESSION: 1. COPD. 2. No acute cardiopulmonary pathology. 3. Moderate old anterior wedge compression fractures of the T5 and T6 vertebral bodies and minimal old anterior wedging of the upper T7-T8 vertebral bodies. 4. No significant change when compared to 12/01/2022. Electronically Signed: Hunter Almaraz MD at 10:11 EDT ,
--- NOTE | 2024-07-31 08:18 | EKG12_ITS ---
Test Reason : NEURO Blood Pressure : / mmHG Vent. Rate : 052 BPM Atrial Rate : 052 BPM P-R Int : 150 ms QRS Dur : 084 ms QT Int : 462 ms P-R-T Axes : 062 -69 076 degrees QTc Int : 429 ms Sinus bradycardia Left anterior fascicular block Septal infarct , age undetermined Cannot rule out Inferior infarct (masked by fascicular block?) , age undetermined Abnormal ECG Confirmed by KHANG DWYER, NATHAN ([id number]), editorial intern DOUGIE CORCORAN ([id number]) on 08/03/2024 1:57:33 PM Referred By: Confirmed By:NATHAN UQIÑONEZ MD
--- NOTE | 2024-07-31 08:19 | EDS_ITS ---
HPI History of Present Illness Chief Complaint: Neuro S/Sx Informant: patient and family Narrative Narrative: 78-year-old male presenting around 8:15 AM for confusion and agitation. He woke up with this in the middle of the night, saying that he was not sure if he was having a nightmare, he was talking about the car and the transmission needing to be put in park, and looking for the keys, he was tearing the room apart, moving the bed away from the wall, looking for the keys that he insisted were somewhere in the room. The son is concerned that this was the way he acted when he had a brain bleed. He is on Eliquis and has a history of factor V Leiden and pulmonary embolus. Apparently during getting worked up and agitated he was a little short of breath and so his son had him do some albuterol since he has COPD and that helped now on the way here he has really calm down and is doing much better. The patient has no complaints right now. Son states additionally that the patient does have probably some dementia/cognitive impairment, but this was above and beyond that. He has a diagnosis of vascular dementia. In addition, the family member 2 days ago. The patient has been distraught. [facility] Medical History Intracranial hemorrhage (11/19/22) Smoker DVT (deep venous thrombosis) Essential hypertension Factor V Leiden mutation Intracerebral hemorrhage (01/2019) Atherosclerosis of coronary artery of [place] without angina pectoris Paroxysmal ventricular tachycardia Pleural effusion Nonspecific abnormal unspecified cardiovascular function study Hyperlipidemia History of pulmonary embolism Orthostatic dizziness Home Medications ?Medication ?Instructions ?Recorded ?Last Taken ?Type amlodipine 5 mg tablet 5 mg PO DAILY BLOOD PRESSURE 11/19/22 Unknown History atorvastatin 40 mg tablet 40 mg PO DAILY CHOLESTEROL 11/19/22 Unknown History apixaban 2.5 mg tablet (Eliquis) 2.5 mg PO BID 01/23/23 Unknown History carvedilol 12.5 mg tablet (Coreg) 12.5 mg PO BID 01/23/23 Unknown History doxazosin 1 mg tablet 1 mg PO QHS 01/23/23 Unknown History lisinopril 40 mg tablet 40 mg PO DAILY 01/23/23 Unknown History buspirone 10 mg tablet 10 mg PO DAILY #30 tabs 09/22/23 Unknown Rx albuterol sulfate 90 mcg/actuation inhalation 01/09/24 Unknown History aerosol inhaler fluticasone furoate 100 1 ea inhalation QDAY 01/09/24 Unknown History mcg-vilanterol 25 mcg/dose inhalation powder (Breo Ellipta) fluoxetine 20 mg capsule 20 mg PO QDAY 03/29/24 Unknown History Allergy/AdvReac Type Severity Reaction Status Date / Time Sulfa (Sulfonamide Allergy Unknown Rash Verified 07/31/24 08:08 Antibiotics) eptifibatide (From AdvReac Severe Hit Verified 07/31/24 08:08 Integrilin) heparin AdvReac Severe HIT Verified 07/31/24 08:08 warfarin (From Coumadin) AdvReac Severe Spont. Verified 07/31/24 08:08 intracerebral Bleeding Family History Sister CVA (cerebral vascular accident) Father Factor 5 Leiden mutation, heterozygous Surgical History Presence of IVC filter History of coronary artery stent placement (04/22/05) History of tonsillectomy History of bilateral inguinal hernia repair Social History (Updated 03/29/24 @ 11:45 by Rae Nicole) housing: house Smoking Status: Current every day smoker tobacco type: pipe other: 5 bowls a day second hand exposure: No alcohol intake: current alcohol intake frequency: holidays/special occasions only Alcohol type: beer substance use type: does not use caffeine: Yes Type: coffee Number of servings: 1 what type of physical activity do you participate in: none pauly/anabaptist: Apostolic seatbelt use: always ROS ROS ED Constitutional Constitutional ED: Denies chills or fever(s) Eyes Eyes: Denies change in vision or diplopia ENT ENT ED: Denies rhinorrhea or sore throat Cardiovascular Cardiovascular: Denies chest pain or palpitations Respiratory/Chest Respiratory/Chest: Reports dyspnea; Denies cough Gastrointestinal Gastrointestinal: Denies abdominal pain, diarrhea, nausea or vomiting Genitourinary Genitourinary ED: Denies dysuria or hematuria Musculoskeletal Musculoskeletal: Denies back pain or neck pain Integumentary Denies abscess or rash Neurologic Neurologic: Reports as per HPI and behavior changes; Denies headache(s), paresthesias or weakness Psychiatric Psychiatric: Denies suicidal thoughts EXAM Physical Exam Const Vital Signs: 07/31/24 08:06 07/31/24 09:05 07/31/24 10:00 Temperature 97.7 F L Temperature Source Oral Pulse Rate 55 L 49 L 50 L Respiratory Rate 16 16 16 Blood Pressure 129/77 H 139/74 H 156/77 H Blood Pressure Mean 94 95 103 Pulse Ox 98 95 95 Oxygen Delivery Method Room Air Room Air 07/31/24 11:00 Temperature Temperature Source Pulse Rate 50 L Respiratory Rate 16 Blood Pressure 174/75 H Blood Pressure Mean 108 Pulse Ox 95 Oxygen Delivery Method Room Air Positive well nourished and well developed General Appearance ED: well developed and NAD HEENT Reports moist mucous membranes normocephalic and atraumatic Eyes PERRL and EOMs intact bilaterally Neck full ROM and supple Resp normal respiratory effort Resp Narrative: Prolonged expiratory phase. Mild expiratory wheezes throughout. No rales or rhonchi. Equal breath sounds bilaterally. Trachea midline. Cardio regular rate, regular rhythm and no murmurs GI non-tender and non-distended Auscultation: normoactive bowel sounds Palpation: soft Back/Spine no CVA tenderness General Back: other FROM Extremity normal to inspection General Extremety ED: Negative for edema, pulses abnormal or tenderness General Extremity: Negative for edema or pulses abnormal Neuro CN's II-XII intact bilaterally and no sensory deficits noted Neuro Narrative: Oriented to person and place and the year, but not his age or the month. Sensorium / Orientation: awake and alert Motor Exam: strength 5/5 throughout Psych mental status grossly normal Skin no rashes or lesions noted and no wounds NIHSS NIHSS Initial: 1a Level of Consciousness: 0 1b LOC Questions (Score 2 if aphasic/stupor): 2 1c LOC Commands (Only score 1st attempt): 0 2 Best Gaze (If aphasic, use reflexive mvmts.): 0 3 Visual: 0 4 Facial Palsy: 0 5 Motor Arm Right (UN = amputation/fusion): 0 5 Motor Arm Left: 0 6 Motor Leg Right: 0 6 Motor Leg Left: 0 7 Limb ataxia (Only + if out of proportion): 0 8 Sensory (Aphasia/stupor=0 or 1, coma=2): 0 9 Best Language: 0 10 Dysarthria (mute, coma=2, intubated=UN): 0 11 Extinction and Inattention (only scored if +): 0 Total Score: 2 MDM MDM MDM Narrative Medical decision making narrative: Patient was sent directly to CT, I reviewed the images and the result which I agree with, it is negative for acute intracranial hemorrhage or anything else acute there. Therefore we continued going forward with metabolic, infectious, cardiopulmonary workup. I reviewed this, it is negative/stable including EKG except for the elevated troponin which is new. He does not have SAMINA to explain this. He is not having chest discomfort. I quickly looked up his old EKG it is the same including a left axis. No urinary infection or signs of pneumonia, 2 view chest x-ray negative for pneumonia on my interpretation. Discussed with cardiology and hospitalist for continued care and testing. Unknown if this could be Takotsubo, but he is not in acute heart failure at this time. Lab Data Attestation: I reviewed the patient's lab results. Labs: Laboratory Results - last 24 hr 07/31/24 07/31/24 08:22 10:05 WBC 9.3 RBC 5.26 Hgb 15.3 Hct 48.8 MCV 92.8 MCH 29.1 MCHC 31.4 L RDW Std Deviation 48.6 H RDW Coeff of Jason 14.1 Plt Count 270 MPV 10.3 Immature Gran % (Auto) 0.200 Neut % (Auto) 65.1 Lymph % (Auto) 21.4 Bailey % (Auto) 7.0 Eos % (Auto) 5.4 H Baso % (Auto) 0.9 Absolute Neuts (auto) 6.0 Absolute Lymphs (auto) 1.98 Nucleated RBC % 0 Sodium 140 Potassium 4.3 Chloride 110 H Carbon Dioxide 29.0 Anion Gap 1 L BUN 23 H Creatinine 1.15 Estim Creat Clear Calc 40.80 Est GFR (MDRD) Af Amer 79 Est GFR (MDRD) Non-Af 65 BUN/Creatinine Ratio 20.0 Glucose 104 Calcium 9.1 Troponin I High Sens 137 H* Urine Color Yellow Urine Clarity Clear Urine pH 6.5 Ur Specific [place] 1.015 Urine Protein 30 H Urine Glucose (UA) Normal Urine Ketones Negative Urine Occult Blood Negative Urine Nitrite Negative Urine Bilirubin Negative Urine Urobilinogen Normal Ur Leukocyte Esterase Negative Urine RBC 0 SEEN Urine WBC 0 SEEN Ur Squamous Epith Cells 0 SEEN Urine Bacteria 0 SEEN Hyaline Casts 0-5 SEEN Urine Mucus 0 SEEN Radiography Diagnostic Testing: Clinical Impression(s) from Imaging Studies Brain CT 07/31/24 08:17 IMPRESSION: 1. No CT evidence of intracranial bleeding, acute ischemic infarct or acute intracranial abnormality. 2. Cystic atrophy of previous hemorrhagic ischemic infarct around the right calcarine fissure with ex vacuo dilatation of the central horn of the right lateral ventricle when compared to 12/01/2022. 3. 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 4. Confluent chronic white matter changes in both cerebral hemispheres. Electronically Signed: Hunter Almaraz MD at 9:08 EDT , Chest X-Ray 07/31/24 08:18 IMPRESSION: 1. COPD. 2. No acute cardiopulmonary pathology. 3. Moderate old anterior wedge compression fractures of the T5 and T6 vertebral bodies and minimal old anterior wedging of the upper T7-T8 vertebral bodies. 4. No significant change when compared to 12/01/2022. Electronically Signed: Hunter Almaraz MD at 10:11 EDT , Rhythm Strip Rhythm Strip: Sinus Rhythm Rate: 55 Ectopy: None EKG Initial EKG: Attestation: I personally reviewed and interpreted this EKG as follows: Interpretation: Sinus Rhythm, No Acute Injury Pattern and LAFB Prior EKG tracings: available for review Prior: Unchanged Management Discussion w/another healthcare provider: Hospitalist and Meter Shop Supervisor ( cardiology) Discharge Plan Dx/Rx/DC Orders Clinical Impression: Acute encephalopathy, Elevated troponin, Vascular dementia Disposition Disposition: Acute Care Hospital [facility]
[2024-07-31 08:30] LABS: Absolute Lymphocyte Count 1.98 X10^3/uL (0.83-4.51); Basophil# 0.08 X10^3/uL; Basophil% 0.9 % (0-1); Eosinophils% 5.4 % (0-5); Hematocrit 48.8 % (40-54); Hemoglobin 15.3 g/dL (13.0-16.5); Lymphocyte # 1.98 X10^3/ul (0.83-4.51); Lymphocyte % 21.4 % (19-41); Mean Corp Hgb Conc 31.4 g/dL (32-36); Mean Corpuscular Hgb 29.1 pg (27.0-32.0); Mean Corpuscular Volume 92.8 fL (80-94); Mean Platelet Vol. 10.3 fl (6.2-12.0); Monocyte# 0.65 X10^3/uL; NRBC Flagged by Analyzer 0 % (0-5); Neutrophil # 6.04 X10^3/uL (2.7-7.7); Neutrophil % 65.1 % (47-70); Platelet Count 270 K/mm3 (150-450); RBC Distribution Width CV 14.1 % (11.6-14.6); RBC Distribution Width SD 48.6 fl (35.1-43.9); Red Blood Count 5.26 M/mm3 (4.6-6.2); White Blood Count 9.3 K/mm3 (4.4-11.0)
[2024-07-31 09:26] LABS: Anion Gap 1 (5-15); BUN 23 mg/dL (7-18); Calcium,Total 9.1 mg/dL (8.5-10.1); Chloride 110 mmol/L (98-107); Creatinine, Serum 1.15 mg/dL (0.70-1.30); EST Glomerular Filtration Rate 65 mL/min (>60); Est Glom Filt Rate - Afr Amer 79 mL/min (>60); Glucose 104 mg/dL (74-106); Potassium 4.3 mmol/L (3.5-5.1); Sodium Level 140 mmol/L (136-145); Troponin-I HS (w/2H Reflex) 137 pg/mL (3.0-78.0)
[2024-07-31 10:14] LABS: Bacteria 0 SEEN /hpf (None Seen); Mucous, Urine 0 SEEN /hpf (<or=2+); Red Blood Cells-Urine 0 SEEN /hpf (0-5); Squamous Epithelial Cells - UA 0 SEEN /hpf (0-5); White Blood Cells 0 SEEN /hpf (0-5)
[2024-07-31 10:22] LABS: Color, Urine Yellow (Yellow); Glucose, Dipstick Normal (Normal); Ketone-Dipstick Negative (Negative); Leukocyte Esterase-Dipstick Negative /ul (Negative); Nitrite-Dipstick Negative (Negative); Occult Blood-Urine Negative /ul (Negative); Protein-Dipstick 30 mg/dl (Negative); Specific Gravity, Urine 1.015 (1.002-1.030); Urine Bilirubin Dipstick Negative (Negative); Urine Clarity Clear (Clear); Urine Urobilinogen Normal (Normal); Urine pH 6.5 (5.0 - 8.0)
[2024-07-31 10:27] LABS: Reflex Troponin-HS? (from REC) Y
[2024-07-31 10:31] LABS: Hyaline Cast 0-5 SEEN /lpf (0-5)
--- NOTE | 2024-07-31 10:59 | HP.PCM.HOS_ITS ---
HPI - General General Date of Admission: 07/31/24 Date of Service: 07/31/24 Chief Complaint: Altered mental status HPI Narrative JULI NAQVI, is a 78 M who presents with altered mental status. Patient has significant past medical history including coronary artery disease with previous DAVID to an LAD lesion, hypercoagulable state with factor V Leiden mutation with previous PE and DVT on systemic anticoagulation with apixaban, multiple intracranial hemorrhage who was brought to the emergency department by the family. Per son who provided a history patient woke up on the morning of his presentation delirious. He was of service about fixing a truck which apparently did not exit. 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 Son was worried given patient's significant past history patient was brought to the emergency department. CT obtained did not show any evidence of intracranial bleed no acute ischemic infarct or acute intracranial abnormality. Patient was found to have elevated troponin. Subsequently admitted to a monitored bed for further management [facility] Medical History Intracranial hemorrhage (11/19/22) Smoker DVT (deep venous thrombosis) Essential hypertension Factor V Leiden mutation Intracerebral hemorrhage (01/2019) Atherosclerosis of coronary artery of [place] heart without angina pectoris Paroxysmal ventricular tachycardia Pleural effusion Nonspecific abnormal unspecified cardiovascular function study Hyperlipidemia History of pulmonary embolism Orthostatic dizziness Home Medications ?Medication ?Instructions ?Recorded ?Last Taken ?Type amlodipine 5 mg tablet 5 mg PO DAILY BLOOD PRESSURE 11/19/22 Unknown History atorvastatin 40 mg tablet 40 mg PO DAILY CHOLESTEROL 11/19/22 Unknown History apixaban 2.5 mg tablet (Eliquis) 2.5 mg PO BID 01/23/23 Unknown History carvedilol 12.5 mg tablet (Coreg) 12.5 mg PO BID 01/23/23 Unknown History doxazosin 1 mg tablet 1 mg PO QHS 01/23/23 Unknown History lisinopril 40 mg tablet 40 mg PO DAILY 01/23/23 Unknown History buspirone 10 mg tablet 10 mg PO DAILY #30 tabs 09/22/23 Unknown Rx albuterol sulfate 90 mcg/actuation inhalation 01/09/24 Unknown History aerosol inhaler fluticasone furoate 100 1 ea inhalation QDAY 01/09/24 Unknown History mcg-vilanterol 25 mcg/dose inhalation powder (Breo Ellipta) fluoxetine 20 mg capsule 20 mg PO QDAY 03/29/24 Unknown History Allergy/AdvReac Type Severity Reaction Status Date / Time Sulfa (Sulfonamide Allergy Unknown Rash Verified 07/31/24 08:08 Antibiotics) eptifibatide (From AdvReac Severe Hit Verified 07/31/24 08:08 Integrilin) heparin AdvReac Severe HIT Verified 07/31/24 08:08 warfarin (From Coumadin) AdvReac Severe Spont. Verified 07/31/24 08:08 intracerebral Bleeding Family History Sister CVA (cerebral vascular accident) Father Factor 5 Leiden mutation, heterozygous Surgical History Presence of IVC filter History of coronary artery stent placement (04/22/05) History of tonsillectomy History of bilateral inguinal hernia repair Social History (Updated 03/29/24 @ 11:45 by Rae Nicole) housing: house Smoking Status: Current every day smoker tobacco type: pipe other: 5 bowls a day second hand exposure: No alcohol intake: current alcohol intake frequency: holidays/special occasions only Alcohol type: beer substance use type: does not use caffeine: Yes Type: coffee Number of servings: 1 what type of physical activity do you participate in: none pauly/sabianism: Apostolic seatbelt use: always ROS ROS Narrative GENERAL: denies fever, chills, HEENT: denies headache, sinus congestion, RESPIRATORY: denies cough, sputum production, CARDIAC: denies chest pain, palpitations, orthopnea, GASTROINTESTINAL: denies abdominal pain, nausea, GENITOURINARY: denies dysuria, urgency, frequency, EXTREMITY: denies swelling MUSCULOSKELETAL: denies current joint pain or tenderness NEUROLOGIC: denies focal numbness, weakness, tingling HEMATOLOGIC: denies easy bruising and/or hemorrhage INTEGUMENT: denies rashes PSYCHIATRIC: denies suicidal or homicidal ideation Vital Signs Vital Signs Vital Signs: 07/31/24 08:06 07/31/24 09:05 07/31/24 10:00 Temperature 97.7 F L Temperature Source Oral Pulse Rate 55 L 49 L 50 L Respiratory Rate 16 16 16 Blood Pressure 129/77 H 139/74 H 156/77 H Blood Pressure Mean 94 95 103 Pulse Ox 98 95 95 Oxygen Delivery Method Room Air Room Air Weight Weight: 56.3 kg Body Mass Index (BMI) 17.3 Physical Exam Narrative GENERAL: cooperative HEENT: Atraumatic; normocephalic EYES; Anicteric, Normal Conjunctiva NECK; supple, normal thyroid, RESPIRATORY: Diminished to auscultation CARDIOVASCULAR: Regular S1 S2, GI: soft, normoactive bowel sounds, : No Renal angle tenderness; EXTREMITIES: No edema, no clubbing, MUSCULOSKELETAL: no muscle wasting NEURO: Awake; no lateralizing signs. SKIN: No Rash PSYCH; Flat affect Results Lab / Micro Data 07/31/24 08:22 07/31/24 08:22 Labs: Laboratory Results - last 24 hr 07/31/24 08:22: WBC 9.3, RBC 5.26, Hgb 15.3, Hct 48.8, MCV 92.8, MCH 29.1, MCHC 31.4 L, RDW Std Deviation 48.6 H, RDW Coeff of Jason 14.1, Plt Count 270, MPV 10.3, Immature Gran % (Auto) 0.200, Neut % (Auto) 65.1, Lymph % (Auto) 21.4, [place] % (Auto) 7.0, Eos % (Auto) 5.4 H, Baso % (Auto) 0.9, Absolute Neuts (auto) 6.0, Absolute Lymphs (auto) 1.98, Nucleated RBC % 0, Sodium 140, Potassium 4.3, Chloride 110 H, Carbon Dioxide 29.0, Anion Gap 1 L, BUN 23 H, Creatinine 1.15, Estim Creat Clear Calc 40.80, Est GFR (MDRD) Af Amer 79, Est GFR (MDRD) Non-Af 65, BUN/Creatinine Ratio 20.0, Glucose 104, Calcium 9.1, Troponin I High Sens 137 H* 07/31/24 10:05: Urine Color Yellow, Urine Clarity Clear, Urine pH 6.5, Ur Specific [place] 1.015, Urine Protein 30 H, Urine Glucose (UA) Normal, Urine Ketones Negative, Urine Occult Blood Negative, Urine Nitrite Negative, Urine Bilirubin Negative, Urine Urobilinogen Normal, Ur Leukocyte Esterase Negative, Urine RBC 0 SEEN, Urine WBC 0 SEEN, Ur Squamous Epith Cells 0 SEEN, Urine Bacteria 0 SEEN, Hyaline Casts 0-5 SEEN, Urine Mucus 0 SEEN Imaging Radiology Impression Brain CT 07/31/24 08:17 IMPRESSION: 1. No CT evidence of intracranial bleeding, acute ischemic infarct or acute intracranial abnormality. 2. Cystic atrophy of previous hemorrhagic ischemic infarct around the right calcarine fissure with ex vacuo dilatation of the central horn of the right lateral ventricle when compared to 12/01/2022. 3. 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 4. Confluent chronic white matter changes in both cerebral hemispheres. Electronically Signed: Hunter Almaraz MD at 9:08 EDT , Chest X-Ray 07/31/24 08:18 IMPRESSION: 1. COPD. 2. No acute cardiopulmonary pathology. 3. Moderate old anterior wedge compression fractures of the T5 and T6 vertebral bodies and minimal old anterior wedging of the upper T7-T8 vertebral bodies. 4. No significant change when compared to 12/01/2022. Electronically Signed: Hunter Almaraz MD at 10:11 EDT , Assessment & Plan Assessment/Plan (1) Elevated troponin: (2) Acute encephalopathy: PLAN: Plan Patient is an 78-year-old gentleman with multiple comorbidities presenting with altered mental status 1. Acute encephalopathy ? Etiology not clear at this point initial head CT obtained did not show No CT evidence of intracranial bleeding, acute ischemic infarct or acute intracranial abnormality. 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 Subsequently admitted to a monitored bed ordered every 4 neurochecks as well as MRI and teleneuro consultation 2. Elevated troponin ? Patient did not experience any chest pain however has significant past cardiac history including previous PCI with a DAVID to an LAD lesion. Admitted to monitored bed ordered a 2D echo in addition to serial cardiac enzymes. Patient was started on antiplatelet therapy with aspirin as well as atorvastatin. Consult placed to cardiology 3. Previous history of intracranial hemorrhage ? CT of the head obtained on admission demonstrated . Cystic atrophy of previous hemorrhagic ischemic infarct around the right calcarine fissure with ex vacuo dilatation of the central horn of the right lateral ventricle when compared to 12/01/2022. 4. Hypercoagulable state ? With history of factor V Leyden mutation with previous DVT and PE. Patient has an IVC filter and is on systemic anticoagulation with apixaban continue 5. Essential hypertension ? Will permit permissive hypertension given his presentation and his current workup 6. Dyslipidemia ?Patient is on statin therapy, continued at home dose 7. BPH with lower urinary obstructive symptoms - Patient treated with doxazosin 8. Suspected vascular dementia ? Supportive care 9. Depression ? Patient is on fluoxetine 10. DVT prophylaxis ? Patient is on apixaban Time spent in the patient's overall evaluation,decision-making process, review of diagnostic data, adjustment of management, discussion with other providers, nursing nursing and ancillary staff involved in patient's care documentation 75 Minutes Advance planning; did discuss with the patient and family regarding advanced directives as well as CODE STATUS. Did explain the various scenarios involved ( FULL CODE, DNR CCA, DNR CCA with no intubation, and DNR CC and what each meant) patient elected to be DNR CCA no intubation. Order was placed. Time spent on discussion 16 minutes. Charges/Coding Multi Select Codes Visit Charges Visit Charges: 92595 Init [facility] Hospitalists' Procedures Procedures: 84040 Advncd Care Plan 30 Min
--- NOTE | 2024-07-31 11:35 | EKG12_ITS ---
Test Reason : CP Blood Pressure : / mmHG Vent. Rate : 055 BPM Atrial Rate : 055 BPM P-R Int : 168 ms QRS Dur : 086 ms QT Int : 474 ms P-R-T Axes : 078 -59 072 degrees QTc Int : 453 ms Sinus bradycardia Left axis deviation Septal infarct , age undetermined Abnormal ECG When compared with ECG of 31-JUL-2024 08:32, MANUAL COMPARISON REQUIRED, DATA IS UNCONFIRMED Confirmed by KHANG DWYER, NATHAN ([id number]), managing editor DOUGIE CORCORAN ([id number]) on 08/03/2024 10:57:47 AM Referred By: JORI Confirmed By:NATHAN QUIÑONEZ MD
--- NOTE | 2024-07-31 11:51 | NURSING ---
PCU OBS KITTOE ENCEPHALOPATHY, ELEVATED TROP
--- NOTE | 2024-07-31 12:39 | ECHOD_ITS ---
Reason For Study: TIA/CVA Procedure This was a 2D Doppler, Color Flow transthoracic echocardiogram. Exam performed portable in patient room. Left Ventricle Normal LV size. Left ventricular systolic function is normal. The left ventricular ejection fraction is 65 %. Stage 1 diastolic dysfunction. No regional wall motion abnormalities noted. Right Ventricle Normal RV size. Normal systolic function. Atria Normal left atrium. Normal right atrium. Bubble contrast study negative for right to left interatrial shunt. Mitral Valve Normal mitral valve. Tricuspid Valve Normal tricuspid valve. Mild (1+) tricuspid valve insufficiency. Pulmonary artery systolic pressure is 35 mmHg. Aortic Valve Trisinus/trileaflet aortic valve. Pulmonic Valve Normal pulmonic valve. Great Vessels Normal aortic root. Pericardium/Pleural No pericardial effusion. Medication Performed a rapid injection of agitated mix of 9 cc saline and 1cc air to assess for atrial septal defect. MMode/2D Measurements & Calculations LVIDd: 3.3 cm IVSd: 1.0 cm Ao root diam: 3.2 cm LVIDs: 1.7 cm LVPWd: 1.4 cm RVDd: 3.3 cm FS: 49.2 % LAV(MOD-bp): 21.9 ml LVAd ap4: 24.1 cm2 LVAd ap2: 14.9 cm2 LAV(MOD-bp) Indexed: 12.7 ml/m2 LVLd ap4: 8.5 cm LVLd ap2: 7.9 cm LAV(MOD-sp2): 13.6 ml EDV(MOD-sp4): 57.8 ml EDV(MOD-sp2): 23.0 ml LAV(MOD-sp4): 31.6 ml EDV(sp4-el): 58.3 ml EDV(sp2-el): 24.0 ml LVAs ap4: 10.6 cm2 LVAs ap2: 8.2 cm2 LVLs ap4: 7.1 cm LVLs ap2: 7.0 cm ESV(MOD-sp4): 13.9 ml ESV(MOD-sp2): 8.0 ml ESV(sp4-el): 13.6 ml ESV(sp2-el): 8.0 ml EF(MOD-sp4): 76.0 % EF(MOD-sp2): 65.3 % EF(sp4-el): 76.7 % SV(MOD-sp4): 43.9 ml SV(MOD-sp2): 15.0 ml SV(sp4-el): 44.8 ml LA A4 area: 15.2 cm2 LA dimension(2D): 2.4 cm RA A4 area: 13.4 cm2 TAPSE: 2.6 cm Time Measurements MV dec time: 0.32 sec Doppler Measurements & Calculations MV E max scooter: 60.4 cm/sec Lat Peak E' Scooter: 8.5 cm/sec Med Peak E' Scooter: 7.7 cm/sec MV A max scooter: 74.4 cm/sec E/E' lat: 7.1 E/E' med: 7.8 MV E/A: 0.81 Ao V2 max: 161.9 cm/sec LV V1 max: 114.5 cm/sec MV dec slope: 189.9 cm/sec2 Ao max P.5 mmHg LV V1 max P.2 mmHg Ao V2 mean: 96.7 cm/sec LV V1 mean P.3 mmHg Ao mean P.6 mmHg LV V1 mean: 69.6 cm/sec Ao V2 VTI: 31.3 cm LV V1 VTI: 24.9 cm AV (velocity ratio): 0.80 PA V2 max: 65.3 cm/sec TR max scooter: 283.6 cm/sec TR max P.2 mmHg ECHO/Echo Complete Interpretation Summary Normal LV size. Left ventricular systolic function is normal. The left ventricular ejection fraction is 65 %. Stage 1 diastolic dysfunction. Bubble contrast study negative for right to left interatrial shunt. Ordering Physician: Tino Stockton Referring Physician: Gio Harman Chi Performed By: Italia Lauren RDCS
[2024-07-31 14:48] LABS: Troponin-I HS 1330 pg/mL (3.0-78.0)
[2024-07-31 14:58] LABS: Hemoglobin A1c 5.5 % (3.8-5.6)
[2024-07-31] MEDS: busPIRone 5 MG Tablet 10 MG PO (16:13)
[2024-07-31] MEDS: Aspirin E.C. 81 MG Tablet PO (16:13)
[2024-07-31] MEDS: Pantoprazole Sodium 40 MG Tablet PO (16:14)
[2024-07-31] MEDS: FLUoxetine 20 MG Capsule PO (16:14)
[2024-07-31] MEDS: amLODIPine 5 MG Tablet PO (16:21)
[2024-07-31] MEDS: Albuterol 2.5 MG/3 ML VIAL.NEB. INHALATION (17:10)
[2024-07-31] MEDS: Budesonide Respules 0.5 MG/2 ML AMPUL.NEB. INHALATION (17:10)
[2024-07-31] MEDS: Mirtazapine 15 MG Tablet 7.5 MG PO (22:13)
[2024-07-31] MEDS: Doxazosin 1 MG Tablet PO (22:13)
[2024-07-31] MEDS: Carvedilol 12.5 MG Tablet PO (22:13)
[2024-07-31] MEDS: Atorvastatin Calcium 40 MG Tablet PO (22:13)
[2024-07-31] MEDS: Donepezil HCl 10 MG Tablet PO (22:13)
[2024-07-31] MEDS: APIXABAN 2.5 MG TABLET (WCH) PO (22:17)
[2024-08-01] VITALS (8 sets, daily range): BP systolic 101–124; BP diastolic 58–70; PULSE 48–62; RESP 16–18; TEMP 36.2–37.2; O2SAT 94–96; BMI 18.1
[2024-08-01] MEDS: Albuterol 2.5 MG/3 ML VIAL.NEB. INHALATION ×3 (06:44→19:30)
[2024-08-01] MEDS: Budesonide Respules 0.5 MG/2 ML AMPUL.NEB. INHALATION ×2 (06:44→19:30)
[2024-08-01 06:55] LABS: Absolute Lymphocyte Count 2.68 X10^3/uL (0.83-4.51); Absolute Neutrophil Count 4.7 X10^3/uL (2.0-7.7); Basophil# 0.07 X10^3/uL; Basophil% 0.8 % (0-1); Eosinophils% 3.4 % (0-5); Lymphocyte # 2.68 X10^3/ul (0.83-4.51); Lymphocyte % 30.7 % (19-41); Mean Corp Hgb Conc 31.7 g/dL (32-36); Mean Corpuscular Hgb 29.3 pg (27.0-32.0); Mean Corpuscular Volume 92.3 fL (80-94); Monocyte# 0.94 X10^3/uL; Monocyte% 10.8 % (0-10); NRBC Flagged by Analyzer 0 % (0-5); Neutrophil # 4.72 X10^3/uL (2.7-7.7); Neutrophil % 54.1 % (47-70); Platelet Count 229 K/mm3 (150-450); RBC Distribution Width CV 14.3 % (11.6-14.6); RBC Distribution Width SD 48.5 fl (35.1-43.9); Red Blood Count 4.44 M/mm3 (4.6-6.2); White Blood Count 8.7 K/mm3 (4.4-11.0)
[2024-08-01 07:25] LABS: Anion Gap 4 (5-15); BUN 25 mg/dL (7-18); BUN/Creat Ratio 22.5 RATIO (10-20); Calcium,Total 8.5 mg/dL (8.5-10.1); Chloride 110 mmol/L (98-107); Cholesterol 115 mg/dL (200); Creatinine, Serum 1.11 mg/dL (0.70-1.30); EST Glomerular Filtration Rate 68 mL/min (>60); Est Glom Filt Rate - Afr Amer 82 mL/min (>60); Estimated Creatinine Clearance 44.14 ml/min; Glucose 92 mg/dL (74-106); High Density Lipoprotein 53 mg/dL; Magnesium 2.2 mg/dL (1.6-2.6); Phosphorus 3.8 mg/dL (2.5-4.9); Potassium 3.8 mmol/L (3.5-5.1); Sodium Level 142 mmol/L (136-145); Triglycerides 55 mg/dL; Very Low Density Lipoprotein 11 mg/dL (5-40)
--- NOTE | 2024-08-01 07:25 | PCM.PN.HOSP ---
Reason for Visit Reason for Visit: Diagnoses Encephalopathy, unspecified (07/31/24) Other specified abnormal findings of blood chemistry (07/31/24) Subjective Subjective Patient admitted with altered mental status. Initial troponin was 137 subsequent serial troponin came back at 1330. Case was discussed with Dr. Barker the refrigeration engineering teacher on-call. Plan is to pursue conservative management at this point given patient multiple comorbidities and frailty. Objective Data Objective Data Vital Signs: Vital Signs Temp Pulse Resp BP Pulse Ox O2 Del Method 98.6 F 48 L 18 101/65 96 Room Air 08/01/24 04:00 08/01/24 04:00 08/01/24 04:00 08/01/24 04:00 08/01/24 04:00 08/01/24 04:00 Oxygen Delivery Method Room Air Weight: 58.8 kg Body Mass Index (BMI) 18.1 Intake & Output: Intake and Output for Last 24 Hours 07/30/24 07/31/24 08/01/24 23:59 23:59 23:59 Intake Total 200 / 200 120 / 120 Output Total 200 / 200 Balance 190 / 190 -80 / -80 Medical Nutrition Assessment Dietitian: Malnutrition Criteria Met Start: 07/31/24 15:07 Freq: Status: Active Protocol: Document 07/31/24 15:07 KINSEY (Rec: 07/31/24 15:07 KINSEY [id number]) Nutrition Malnutrition Evidence of Malnutrition Exists Yes Malnutrition (severe): Chronic Evidenced By Suboptimal Energy Intake ( Severe),Weight Loss (Severe), Physical Changes (Severe) Clinical Problem Chronic Disease or Condition Related Malnutrition Etiology related to inadequate energy intake Signs/Symptoms as evidenced by pt w/ wt down to 52.7 kg and po intake meeting <75% x 1 yr - po intake improving since on remeron x ~ 1 mo ago- pt w/ obvious fat loss/muscle wasting throughout body; BMI 17.3 Status Active Problem Recommendation Dietitian Recommendations/Changes Will liberalize diet to Regular w/ 8 oz chocolate CIB w/ meals for increased nutrition if consumed Rec continue appetite stimulant Lab / Micro Data 08/01/24 06:00 08/01/24 06:00 Labs: Laboratory Results - last 24 hr 07/31/24 08:22: WBC 9.3, RBC 5.26, Hgb 15.3, Hct 48.8, MCV 92.8, MCH 29.1, MCHC 31.4 L, RDW Std Deviation 48.6 H, RDW Coeff of [place] 14.1, Plt Count 270, MPV 10.3, Immature Gran % (Auto) 0.200, Neut % (Auto) 65.1, Lymph % (Auto) 21.4, [place] % (Auto) 7.0, Eos % (Auto) 5.4 H, Baso % (Auto) 0.9, Absolute Neuts (auto) 6.0, Absolute Lymphs (auto) 1.98, Nucleated RBC % 0, Sodium 140, Potassium 4.3, Chloride 110 H, Carbon Dioxide 29.0, Anion Gap 1 L, BUN 23 H, Creatinine 1.15, Estim Creat Clear Calc 40.80, Est GFR (MDRD) Af Amer 79, Est GFR (MDRD) Non-Af 65, BUN/Creatinine Ratio 20.0, Glucose 104, Hemoglobin A1c 5.5, Calcium 9.1, Troponin I High Sens 137 H* 07/31/24 10:05: Urine Color Yellow, Urine Clarity Clear, Urine pH 6.5, Ur Specific [place] 1.015, Urine Protein 30 H, Urine Glucose (UA) Normal, Urine Ketones Negative, Urine Occult Blood Negative, Urine Nitrite Negative, Urine Bilirubin Negative, Urine Urobilinogen Normal, Ur Leukocyte Esterase Negative, Urine RBC 0 SEEN, Urine WBC 0 SEEN, Ur Squamous Epith Cells 0 SEEN, Urine Bacteria 0 SEEN, Hyaline Casts 0-5 SEEN, Urine Mucus 0 SEEN 07/31/24 14:00: Troponin I High Sens Cancelled 07/31/24 14:00: Troponin I High Sens 1330 H* 08/01/24 06:00: WBC 8.7, RBC 4.44 L, Hgb 13.0, Hct 41.0, MCV 92.3, MCH 29.3, MCHC 31.7 L, RDW Std Deviation 48.5 H, RDW Coeff of [place] 14.3, Plt Count 229, MPV 11.0, Immature Gran % (Auto) 0.200, Neut % (Auto) 54.1, Lymph % (Auto) 30.7, [place] % (Auto) 10.8 H, Eos % (Auto) 3.4, Baso % (Auto) 0.8, Absolute Neuts (auto) 4.7, Absolute Lymphs (auto) 2.68, Nucleated RBC % 0 Radiography Diagnostic Testing: Radiology Impression Brain CT 07/31/24 08:17 IMPRESSION: 1. No CT evidence of intracranial bleeding, acute ischemic infarct or acute intracranial abnormality. 2. Cystic atrophy of previous hemorrhagic ischemic infarct around the right calcarine fissure with ex vacuo dilatation of the central horn of the right lateral ventricle when compared to 12/01/2022. 3. 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 4. Confluent chronic white matter changes in both cerebral hemispheres. Electronically Signed: Hunter Almaraz MD at 9:08 EDT , Chest X-Ray 07/31/24 08:18 IMPRESSION: 1. COPD. 2. No acute cardiopulmonary pathology. 3. Moderate old anterior wedge compression fractures of the T5 and T6 vertebral bodies and minimal old anterior wedging of the upper T7-T8 vertebral bodies. 4. No significant change when compared to 12/01/2022. Electronically Signed: Hunter Almaraz MD at 10:11 EDT , Rhythm Strip Rhythm Strip: Sinus Rhythm Rate: 55 Ectopy: None Physical Exam Narrative GENERAL: cooperative HEENT: Atraumatic; normocephalic EYES; Anicteric, Normal Conjunctiva NECK; supple, normal thyroid, RESPIRATORY: Diminished to auscultation CARDIOVASCULAR: Regular S1 S2, GI: soft, normoactive bowel sounds, : No Renal angle tenderness; EXTREMITIES: No edema, no clubbing, MUSCULOSKELETAL: no muscle wasting NEURO: Awake; no lateralizing signs. SKIN: No Rash PSYCH; Flat affect Assessment & Plan Assessment/Plan (1) Elevated troponin: (2) Acute encephalopathy: PLAN: Plan Patient is an 78-year-old gentleman with multiple comorbidities presenting with altered mental status 1. Acute encephalopathy ? Etiology not clear at this point initial head CT obtained did not show No CT evidence of intracranial bleeding, acute ischemic infarct or acute intracranial abnormality. 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 Subsequently admitted to a monitored bed ordered every 4 neurochecks as well as MRI and teleneuro consultation ? 08/01/2024; patient appears to be back to his baseline. Plan is to obtain further evaluation with an MRI. Case discussed with Dr. Esparza with [facility] teleneuro 2. Elevated troponin consistent with acute non-STEMI type I ? Patient did not experience any chest pain however has significant past cardiac history including previous PCI with a DAVID to an LAD lesion. Admitted to monitored bed ordered a 2D echo in addition to serial cardiac enzymes. Patient was started on antiplatelet therapy with aspirin as well as atorvastatin. Consult placed to cardiology ? 08/01/2024; troponin peaked at 1330. Case discussed with Dr. Barker will continue with patient current treatment. Echo was ordered on admission awaiting results. 3. Previous history of intracranial hemorrhage ? CT of the head obtained on admission demonstrated . Cystic atrophy of previous hemorrhagic ischemic infarct around the right calcarine fissure with ex vacuo dilatation of the central horn of the right lateral ventricle when compared to 12/01/2022. 4. Hypercoagulable state ? With history of factor V Leyden mutation with previous DVT and PE. Patient has an IVC filter and is on systemic anticoagulation with apixaban continue 5. Essential hypertension ? Will permit permissive hypertension given his presentation and his current workup 6. Dyslipidemia ?Patient is on statin therapy, continued at home dose 7. BPH with lower urinary obstructive symptoms - Patient treated with doxazosin 8. Suspected vascular dementia ? Supportive care 9. Depression ? Patient is on fluoxetine 10. DVT prophylaxis ? Patient is on apixaban Time spent in the patient's overall evaluation,decision-making process, review of diagnostic data, adjustment of management, discussion with other providers, nursing nursing and ancillary staff involved in patient's care documentation 52 minutes Charges/Coding Visit Charges Inpatient E&M: 61036 [facility] L3
[2024-08-01 07:32] LABS: Troponin-I HS 369 pg/mL (3.0-78.0)
[2024-08-01] MEDS: busPIRone 5 MG Tablet 10 MG PO (08:51)
[2024-08-01] MEDS: Aspirin E.C. 81 MG Tablet PO (08:51)
[2024-08-01] MEDS: Carvedilol 12.5 MG Tablet PO ×2 (08:51→21:26)
[2024-08-01] MEDS: FLUoxetine 20 MG Capsule PO (08:51)
[2024-08-01] MEDS: Pantoprazole Sodium 40 MG Tablet PO (08:51)
[2024-08-01] MEDS: amLODIPine 5 MG Tablet PO (08:51)
[2024-08-01] MEDS: Lisinopril 40 MG Tablet PO (08:51)
[2024-08-01] MEDS: APIXABAN 2.5 MG TABLET (WCH) PO ×2 (08:51→21:25)
--- NOTE | 2024-08-01 09:40 | STROKE.CONS ---
Assessment and Plan: Stroke Assessment/Plan JULI NAQVI is a 78 M with a history of prior strokes, likely dementia, factor V leiden w venous clots on chronic AC who presents for evaluation of behavioral abnormality - specifically possible delusion vs auditory hallucinations. On exam, pt is non-focal but still holds on to his assertion of why he is in the hospital. He is well oriented. Imaging without stroke. Based on clinical history, concern for auditory hallucination, possible visual hallucination, and delusions, worried this is progression of his underlying dementia. However, given his history, nanette recommend eval for seizure with EEG. MRI Brain without clear progression of hemorrhages, so no need to change anticoagulation. - recommend EEG at this time - if normal, and pt with no behavioral issues, neurology will sign off. HPI Consult Data Date of Consult: 08/01/24 HPI Narrative HPI Narrative: JULI NAQVI, is a 78 M who presents with altered mental status. Patient has significant past medical history including coronary artery disease with previous DAVID to an LAD lesion, hypercoagulable state with factor V Leiden mutation with previous PE and DVT on systemic anticoagulation with apixaban, multiple intracranial hemorrhage who was brought to the emergency department by the family. Per son who provided a history patient woke up on the morning of his presentation delirious. He was of service about fixing a truck which apparently did not exit. 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 Son was worried given patient's significant past history patient was brought to the emergency department. CT obtained did not show any evidence of intracranial bleed no acute ischemic infarct or acute intracranial abnormality. Patient was found to have elevated troponin. Subsequently admitted to a monitored bed for further management. Neurologic History Pt is not sure why he is in the hospital. Son provided history, states that his mom states pt woke up thinking that there was a car/truck in the room. Unclear if was a hallucination but son states seemed like an auditory hallucination. Not clearly that he saw the truck but kept saying the dashboard and keys were somewhere and trying to get access to it. One other episode happenend when pt woke up in the middle of the night trying to hit something and was pounding on his . Pt has had episodes of talking to people who are not there. Has been having other memory problems, some of which have improved with improved PO intake but he still can no longer drive and has intermittent confusion re day and time. [facility] Medical History Intracranial hemorrhage (11/19/22) Smoker DVT (deep venous thrombosis) Essential hypertension Factor V Leiden mutation Intracerebral hemorrhage (01/2019) Atherosclerosis of coronary artery of [place] heart without angina pectoris Paroxysmal ventricular tachycardia Pleural effusion Nonspecific abnormal unspecified cardiovascular function study Hyperlipidemia History of pulmonary embolism Orthostatic dizziness Home Medications ?Medication ?Instructions ?Recorded ?Last Taken ?Type amlodipine 5 mg tablet 5 mg PO DAILY BLOOD PRESSURE 11/19/22 07/30/24 History atorvastatin 40 mg tablet 40 mg PO DAILY CHOLESTEROL 11/19/22 07/30/24 History apixaban 2.5 mg tablet (Eliquis) 2.5 mg PO BID anticlotting 01/23/23 07/30/24 History carvedilol 12.5 mg tablet (Coreg) 12.5 mg PO BID heart 01/23/23 07/30/24 History doxazosin 1 mg tablet 1 mg PO QHS bph 01/23/23 07/30/24 History lisinopril 40 mg tablet 40 mg PO DAILY hypertension 01/23/23 07/30/24 History buspirone 10 mg tablet 10 mg PO DAILY anxiety #30 tabs 09/22/23 07/30/24 Rx albuterol sulfate 90 mcg/actuation 1 puff inhalation Q4H PRN wheezing 01/09/24 07/31/24 History aerosol inhaler fluticasone furoate 100 1 ea inhalation QDAY copd 01/09/24 07/30/24 History mcg-vilanterol 25 mcg/dose inhalation powder (Breo Ellipta) fluoxetine 20 mg capsule 20 mg PO QDAY depression 03/29/24 07/30/24 History donepezil 10 mg tablet 10 mg PO QHS appetite 07/31/24 Unknown History mirtazapine 7.5 mg tablet 7.5 mg PO QHS appetite stimulant 07/31/24 07/30/24 History Allergy/AdvReac Type Severity Reaction Status Date / Time Sulfa (Sulfonamide Allergy Unknown Rash Verified 07/31/24 08:08 Antibiotics) eptifibatide (From AdvReac Severe Hit Verified 07/31/24 08:08 Integrilin) heparin AdvReac Severe HIT Verified 07/31/24 08:08 warfarin (From Coumadin) AdvReac Severe Spont. Verified 07/31/24 08:08 intracerebral Bleeding Family History Sister CVA (cerebral vascular accident) Father Factor 5 Leiden mutation, heterozygous Surgical History Presence of IVC filter History of coronary artery stent placement (04/22/05) History of tonsillectomy History of bilateral inguinal hernia repair Social History (Updated 03/29/24 @ 11:45 by Rae Nicole) housing: house Smoking Status: Current every day smoker tobacco type: pipe other: 5 bowls a day second hand exposure: No alcohol intake: current alcohol intake frequency: holidays/special occasions only Alcohol type: beer substance use type: does not use caffeine: Yes Type: coffee Number of servings: 1 what type of physical activity do you participate in: none pauly/mu-ism: Apostolic seatbelt use: always Vital Signs Vital Signs Vital Signs: 07/31/24 10:00 07/31/24 11:00 07/31/24 12:00 Temperature Temperature Source Pulse Rate 50 L 50 L 61 Pulse Strength Respiratory Rate 16 16 18 Respiratory Effort Respiratory Depth Respiratory Pattern Blood Pressure 156/77 H 174/75 H 158/62 H Blood Pressure Mean 103 108 94 Blood Pressure Source Blood Pressure Position Blood Pressure Location Pulse Ox 95 95 96 Oxygen Delivery Method Room Air 07/31/24 12:00 07/31/24 12:06 07/31/24 12:53 Temperature 98 F 98.4 F 97.8 F Temperature Source Oral Oral Pulse Rate 61 62 49 L Pulse Strength Respiratory Rate 16 18 24 H Respiratory Effort Respiratory Depth Respiratory Pattern Blood Pressure 158/82 H 103/59 L 144/78 H Blood Pressure Mean 107 73 100 Blood Pressure Source Monitor Blood Pressure Position Semi-Fowlers Blood Pressure Location Left Arm Pulse Ox 96 96 97 Oxygen Delivery Method Room Air 07/31/24 13:00 07/31/24 13:00 07/31/24 14:40 Temperature Temperature Source Pulse Rate 52 L Pulse Strength Respiratory Rate Respiratory Effort Normal Respiratory Depth Shallow Respiratory Pattern Normal Blood Pressure Blood Pressure Mean Blood Pressure Source Blood Pressure Position Blood Pressure Location Pulse Ox 95 Oxygen Delivery Method Room Air Room Air 07/31/24 15:00 07/31/24 16:00 07/31/24 16:19 Temperature 98.0 F Temperature Source Oral Pulse Rate 57 L 51 L Pulse Strength Respiratory Rate 18 Respiratory Effort Normal Respiratory Depth Shallow Respiratory Pattern Normal Blood Pressure 111/65 Blood Pressure Mean 80 Blood Pressure Source Monitor Blood Pressure Position Semi-Fowlers Blood Pressure Location Left Arm Pulse Ox 96 Oxygen Delivery Method Room Air Room Air 07/31/24 17:10 07/31/24 20:00 07/31/24 20:00 Temperature 98.6 F Temperature Source Oral Pulse Rate 58 L 55 L Pulse Strength Respiratory Rate 16 18 Respiratory Effort Normal Respiratory Depth Shallow Respiratory Pattern Normal Normal Blood Pressure 100/73 Blood Pressure Mean 82 Blood Pressure Source Monitor Blood Pressure Position Semi-Fowlers Blood Pressure Location Left Arm Pulse Ox 96 Oxygen Delivery Method Room Air Room Air 07/31/24 22:00 08/01/24 00:00 08/01/24 00:00 Temperature 98.6 F Temperature Source Oral Pulse Rate 50 L Pulse Strength Normal (2+) Respiratory Rate 18 Respiratory Effort Normal Respiratory Depth Shallow Respiratory Pattern Normal Blood Pressure 108/70 Blood Pressure Mean 82 Blood Pressure Source Monitor Blood Pressure Position Semi-Fowlers Blood Pressure Location Left Arm Pulse Ox 96 Oxygen Delivery Method Room Air Room Air 08/01/24 04:00 08/01/24 04:00 08/01/24 08:44 Temperature 98.6 F 98.0 F Temperature Source Oral Oral Pulse Rate 48 L 51 L Pulse Strength Respiratory Rate 18 16 Respiratory Effort Normal Respiratory Depth Shallow Respiratory Pattern Normal Blood Pressure 101/65 124/61 H Blood Pressure Mean 77 82 Blood Pressure Source Monitor Monitor Blood Pressure Position Semi-Fowlers Semi-Fowlers Blood Pressure Location Left Arm Right Arm Pulse Ox 96 94 Oxygen Delivery Method Room Air Room Air Room Air Weight Weight: 58.8 kg Body Mass Index (BMI) 18.1 EEG Results Procedure Details EEG Procedure Details: JULI NAQVI is a 78 year old M with a past medical history of , who presents for evaluation of Electroencephalogram on DATE at TIME NIHSS NIHSS Nursing Documentation NIHSS Nursing Documentation: NIHSS: Ischemic Stroke/TIA Start: 07/31/24 12:39 Text: For PCU Patients: NIH and Neuro Check every 4 Status: Active hours, PRN and with change in RN caregiver. Freq: Q4H Protocol: Activity Type Activity Date Activity User E-sign Co-sign Detail Recorded Client Recorded Date Recorded By Document 08/01/24 04:00 [id number] 08/01/24 06:32 08/01/24 04:00 NIH Stroke Scale [NIHSS] A score of 0 is normal or asymptomatic . Total possible score is 42. Inpatient: RN or Physician to activate a stroke alert for onset of new stroke symptoms or with NIHSS increase >/= 3 points. Following change in neurological status, NIHSS will be performed per physician order or more frequently PRN. -1a. Level of Consciousness Alert; keenly responsive -1b. LOC Questions Answers BOTH questions correctly. -1c. LOC Commands Performs both tasks correctly . -2. Best Gaze Normal -3. Visual No visual loss -4. Facial Palsy Normal symmetrical movements -5a. Left Arm No drift; arm holds 90 (or 45 ) degrees for full 10 seconds -5b. Right Arm No drift; arm holds 90 (or 45 ) degrees for full 10 seconds -6a. Left Leg No drift; leg holds 30-degree position for full 5 seconds -6b. Right Leg No drift; leg holds 30-degree position for full 5 seconds -7. Limb Ataxia Absent -8. Sensory Normal; no sensory loss -9. Best Language No aphasia; normal -10. Dysarthria Normal -11. Extinction and Inattention No abnormality -Total 0 Query Text:A score of 0 is normal or asymptomatic. Total possible score is 42 . ED: Notify Physician for NIHSS increase by > / = 3 points. Inpatient: RN or Physician to activate a stroke alert for NIHSS increase of > / = 3 points. Coma Scale [Assess] -Eye Opening Spontaneous -Motor Obeys Commands -Verbal Oriented [Total] -Coma Scale Total 15 NIHSS 1a. Level of Consciousness: Alert; keenly responsive 1b. LOC Questions: Answers BOTH questions correctly. 1c. LOC Commands: Performs both tasks correctly. 2. Best Gaze: Normal 3. Visual: No visual loss 4. Facial Palsy: Normal symmetrical movements 5a. Left Arm: No drift; arm holds 90 (or 45) degrees for full 10 seconds 5b. Right Arm: No drift; arm holds 90 (or 45) degrees for full 10 seconds 6a. Left Leg: No drift; leg holds 30-degree position for full 5 seconds 6b. Right Leg: No drift; leg holds 30-degree position for full 5 seconds 7. Limb Ataxia: Absent 8. Sensory: Normal; no sensory loss 9. Best Language: No aphasia; normal 10. Dysarthria: Normal 11. Extinction and Inattention: No abnormality Total: 0 Medical Records Data Medical Nutrition Assessment Dietitian: Malnutrition Criteria Met Start: 07/31/24 15:07 Freq: Status: Active Protocol: Document 07/31/24 15:07 [facility] (Rec: 07/31/24 15:07 [facility] [id number]) Nutrition Malnutrition Evidence of Malnutrition Exists Yes Malnutrition (severe): Chronic Evidenced By Suboptimal Energy Intake ( Severe),Weight Loss (Severe), Physical Changes (Severe) Clinical Problem Chronic Disease or Condition Related Malnutrition Etiology related to inadequate energy intake Signs/Symptoms as evidenced by pt w/ wt down to 52.7 kg and po intake meeting <75% x 1 yr - po intake improving since on remeron x ~ 1 mo ago- pt w/ obvious fat loss/muscle wasting throughout body; BMI 17.3 Status Active Problem Recommendation Dietitian Recommendations/Changes Will liberalize diet to Regular w/ 8 oz chocolate CIB w/ meals for increased nutrition if consumed Rec continue appetite stimulant Lab / Micro Data 08/01/24 06:00 08/01/24 06:00 Labs: Laboratory Results - last 24 hr 07/31/24 08:22: Hemoglobin A1c 5.5 07/31/24 10:05: Urine Color Yellow, Urine Clarity Clear, Urine pH 6.5, Ur Specific [place] 1.015, Urine Protein 30 H, Urine Glucose (UA) Normal, Urine Ketones Negative, Urine Occult Blood Negative, Urine Nitrite Negative, Urine Bilirubin Negative, Urine Urobilinogen Normal, Ur Leukocyte Esterase Negative, Urine RBC 0 SEEN, Urine WBC 0 SEEN, Ur Squamous Epith Cells 0 SEEN, Urine Bacteria 0 SEEN, Hyaline Casts 0-5 SEEN, Urine Mucus 0 SEEN 07/31/24 14:00: Troponin I High Sens Cancelled 07/31/24 14:00: Troponin I High Sens 1330 H* 08/01/24 06:00: WBC 8.7, RBC 4.44 L, Hgb 13.0, Hct 41.0, MCV 92.3, MCH 29.3, MCHC 31.7 L, RDW Std Deviation 48.5 H, RDW Coeff of Jason 14.3, Plt Count 229, MPV 11.0, Immature Gran % (Auto) 0.200, Neut % (Auto) 54.1, Lymph % (Auto) 30.7, [place] % (Auto) 10.8 H, Eos % (Auto) 3.4, Baso % (Auto) 0.8, Absolute Neuts (auto) 4.7, Absolute Lymphs (auto) 2.68, Nucleated RBC % 0, Sodium 142, Potassium 3.8, Chloride 110 H, Carbon Dioxide 28.0, Anion Gap 4 L, BUN 25 H, Creatinine 1.11, Estim Creat Clear Calc 44.14, Est GFR (MDRD) Af Amer 82, Est GFR (MDRD) Non-Af 68, BUN/Creatinine Ratio 22.5 H, Glucose 92, Calcium 8.5, Phosphorus 3.8, Magnesium 2.2, Troponin I High Sens 369 H*, Triglycerides 55, Cholesterol 115, LDL Cholesterol 51, VLDL Cholesterol 11, HDL Cholesterol 53 Rhythm Strip Rhythm Strip: Sinus Rhythm Rate: 55 Ectopy: None Imaging Radiology Impression Chest X-Ray 07/31/24 08:18 IMPRESSION: 1. COPD. 2. No acute cardiopulmonary pathology. 3. Moderate old anterior wedge compression fractures of the T5 and T6 vertebral bodies and minimal old anterior wedging of the upper T7-T8 vertebral bodies. 4. No significant change when compared to 12/01/2022. Electronically Signed: Hunter Almaraz MD at 10:11 EDT , Active Medications Active Medications Active Medications: Current Medications Generic Name Dose Route Start Last Admin Trade Name Freq PRN Reason Stop Dose Admin Acetaminophen 650 mg 07/31/24 12:39 Acetaminophen 325 Mg Tablet PO Q6H PRN PRN Pain 1-10 Or Fever>100.7 Al Hydroxide/Mg Hydroxide 30 ml 07/31/24 12:39 Mag Hydrox/Al Hydrox/Simeth 30 Ml Udc PO Q6H PRN PRN Gastric Burning Albuterol Sulfate 2.5 mg 07/31/24 13:40 Albuterol 2.5 Mg/3 Ml Vial.Neb. INHALATION Q4H PRN PRN wheezing Albuterol Sulfate 2.5 mg 07/31/24 13:50 08/01/24 06:44 Albuterol 2.5 Mg/3 Ml Vial.Neb. INHALATION 2.5 mg Q6HWA.RT FRANKIE Administration Amlodipine Besylate 5 mg 07/31/24 13:30 08/01/24 08:51 Amlodipine 5 Mg Tablet PO 5 mg DAILY FRANKIE Administration Protocol Apixaban 2.5 mg 07/31/24 22:00 08/01/24 08:51 Apixaban 2.5 Mg Tablet ([facility]) PO 2.5 mg BID FRANKIE Administration Aspirin 81 mg 08/01/24 08:00 08/01/24 08:51 Aspirin E.C. 81 Mg Tablet PO 81 mg BREAKFAST FRANKIE Administration Atorvastatin Calcium 40 mg 07/31/24 22:00 07/31/24 22:13 Atorvastatin Calcium 40 Mg Tablet PO 40 mg QHS FRANKIE Administration Budesonide 0.5 mg 07/31/24 13:50 08/01/24 06:44 Budesonide Respules 0.5 Mg/2 Ml Ampul.Neb. INHALATION 0.5 mg Q12H.RT FRANKIE Administration Buspirone HCl 10 mg 08/01/24 10:00 08/01/24 08:51 Buspirone 5 Mg Tablet PO 10 mg DAILY FRANIKE Administration Carvedilol 12.5 mg 07/31/24 22:00 08/01/24 08:51 Carvedilol 12.5 Mg Tablet PO 12.5 mg BID FRANKIE Administration Protocol Donepezil HCl 10 mg 07/31/24 22:00 07/31/24 22:13 Donepezil Hcl 10 Mg Tablet PO 10 mg QHS FRANKIE Administration Doxazosin Mesylate 1 mg 07/31/24 22:00 07/31/24 22:13 Doxazosin 1 Mg Tablet PO 1 mg QHS FRANKIE Administration Protocol Fluoxetine HCl 20 mg 08/01/24 10:00 08/01/24 08:51 Fluoxetine 20 Mg Capsule PO 20 mg DAILY FRANKIE Administration Hydralazine HCl 5 mg 07/31/24 12:39 Hydralazine 20 Mg/Ml Vial IV 08/01/24 12:39 Q30M PRN maintain BP parameters with HR <60 Sodium Chloride 250 mls @ 15 mls/hr 07/31/24 15:59 IV .[id number] PRN Additional IVPB Infusion Sodium Chloride 250 mls @ 15 mls/hr 07/31/24 15:59 IV .[id number] PRN Saline Flush Labetalol HCl 10 - 20 mg 07/31/24 12:39 Labetalol (Prefilled) 20 Mg/4 Ml IV 08/01/24 12:39 Q10M PRN PRN maintain BP parameters with HR >/=60 Lisinopril 40 mg 08/01/24 10:00 08/01/24 08:51 Lisinopril 40 Mg Tablet PO 40 mg DAILY FRANKIE Administration Protocol Mirtazapine 7.5 mg 07/31/24 22:00 07/31/24 22:13 Mirtazapine 15 Mg Tablet PO 7.5 mg QHS FRANKIE Administration Nitroglycerin 0.4 mg 07/31/24 12:39 Nitroglycerin (Inpatient Use) 0.4 Mg Tab.Subl SL Q5M PRN CARDIAC/CHEST PAIN Ondansetron HCl 4 mg 07/31/24 12:39 Ondansetron 4 Mg/2 Ml Vial IV Q8H PRN PRN NAUSEA/VOMITING Pantoprazole Sodium 40 mg 08/01/24 10:00 08/01/24 08:51 Pantoprazole Sodium 40 Mg Tablet PO 40 mg DAILY FRANKIE Administration Senna/Docusate Sodium 2 tablet 07/31/24 12:39 Senna/Docusate Sodium 1 Tablet PO BID PRN PRN Constipation Sodium Chloride 10 - 40 ml 07/31/24 15:59 0.9% Saline Lock 10 Ml Syringe IV UD PRN SALINE FLUSH
--- NOTE | 2024-08-01 09:47 | MRI_ITS ---
EXAM: MR HEAD WITHOUT INTRAVENOUS CONTRAST CLINICAL INDICATION: CVA TECHNIQUE: Multiplanar and multisequence MR images of the brain were obtained without intravenous contrast. COMPARISON: MRI brain 04/12/2024. CT head without contrast 07/31/2024. FINDINGS: BRAIN AND EXTRA-AXIAL SPACES: No diffusion restriction to suspect acute or subacute ischemic infarct. Old cortical-based ischemic infarct with cystic encephalomalacia and atrophy in the left frontal lobe in the medial right occipital lobe. Periventricular white matter T2 FLAIR hyperintensities foci in both cerebral hemispheres are chronic white matter ischemic changes. No intra- or extra-axial hemorrhage. No intracranial mass or mass effect. Posterior fossa structures are unremarkable. No hydrocephalus. Basal cisterns are patent. SELLA: Unremarkable. Normal sella turcica, pituitary gland, infundibular stalk, optic chiasm and hypothalamus. AUDITORY SYSTEM: Unremarkable. The internal auditory canals are patent. BONES/JOINTS: Unremarkable. No discrete lytic or blastic abnormalities. SINUSES: Pronounced mucosal thickening in the sphenoid sinus and moderate mucosal thickening of the right maxillary sinus due to chronic sinusitis. MASTOID AIR CELLS: Unremarkable as visualized. Clear. ORBITS: Unremarkable as visualized. Both globes, extraocular muscles, optic nerves and retrobulbar fat appear unremarkable. VASCULATURE: Unremarkable as visualized. Normal flow voids in the major intracranial circulation. MRI/Brain without Contrast IMPRESSION: 1. No MRI evidence of acute or subacute ischemic infarct. 2. Old cortical-based ischemic infarct in the left frontal and in the medial aspect of the right occipital lobe. 3. Chronic periventricular white matter ischemic changes in both cerebral hemispheres. 4. Chronic right sphenoid sinusitis and right maxillary sinusitis. 5. No significant interval change. Electronically Signed: Hunter Almaraz MD at 12:12 EDT ,
--- NOTE | 2024-08-01 11:32 | PCM.CONS.C ---
Assessment & Plan Assessment/Plan (1) Elevated troponin: PLAN: Patient denies any chest pain or shortness of breath. Troponin is already trending down. Reasonable to treat this medically with current medical therapy that patient is already on. We will sign off at this time. If we can be of any further assistance please let us know. HPI Consult Data Date of Consult: 08/01/24 HPI Narrative Reason for Consultation: Elevated troponin HPI Narrative: JULI NAQVI, is a 78 M who presents with altered mental status. Patient's troponin was elevated and cardiology consult was requested. Patient denies any cardiac complaints. [facility] Medical History Intracranial hemorrhage (11/19/22) Smoker DVT (deep venous thrombosis) Essential hypertension Factor V Leiden mutation Intracerebral hemorrhage (01/2019) Atherosclerosis of coronary artery of [place] heart without angina pectoris Paroxysmal ventricular tachycardia Pleural effusion Nonspecific abnormal unspecified cardiovascular function study Hyperlipidemia History of pulmonary embolism Orthostatic dizziness Home Medications ?Medication ?Instructions ?Recorded ?Last Taken ?Type amlodipine 5 mg tablet 5 mg PO DAILY BLOOD PRESSURE 11/19/22 07/30/24 History atorvastatin 40 mg tablet 40 mg PO DAILY CHOLESTEROL 11/19/22 07/30/24 History apixaban 2.5 mg tablet (Eliquis) 2.5 mg PO BID anticlotting 01/23/23 07/30/24 History carvedilol 12.5 mg tablet (Coreg) 12.5 mg PO BID heart 01/23/23 07/30/24 History doxazosin 1 mg tablet 1 mg PO QHS bph 01/23/23 07/30/24 History lisinopril 40 mg tablet 40 mg PO DAILY hypertension 01/23/23 07/30/24 History buspirone 10 mg tablet 10 mg PO DAILY anxiety #30 tabs 09/22/23 07/30/24 Rx albuterol sulfate 90 mcg/actuation 1 puff inhalation Q4H PRN wheezing 01/09/24 07/31/24 History aerosol inhaler fluticasone furoate 100 1 ea inhalation QDAY copd 01/09/24 07/30/24 History mcg-vilanterol 25 mcg/dose inhalation powder (Breo Ellipta) fluoxetine 20 mg capsule 20 mg PO QDAY depression 03/29/24 07/30/24 History donepezil 10 mg tablet 10 mg PO QHS appetite 07/31/24 Unknown History mirtazapine 7.5 mg tablet 7.5 mg PO QHS appetite stimulant 07/31/24 07/30/24 History Allergy/AdvReac Type Severity Reaction Status Date / Time Sulfa (Sulfonamide Allergy Unknown Rash Verified 07/31/24 08:08 Antibiotics) eptifibatide (From AdvReac Severe Hit Verified 07/31/24 08:08 Integrilin) heparin AdvReac Severe HIT Verified 07/31/24 08:08 warfarin (From Coumadin) AdvReac Severe Spont. Verified 07/31/24 08:08 intracerebral Bleeding Family History Sister CVA (cerebral vascular accident) Father Factor 5 Leiden mutation, heterozygous Surgical History Presence of IVC filter History of coronary artery stent placement (04/22/05) History of tonsillectomy History of bilateral inguinal hernia repair Social History (Updated 03/29/24 @ 11:45 by Rae Nciole) housing: house Smoking Status: Current every day smoker tobacco type: pipe other: 5 bowls a day second hand exposure: No alcohol intake: current alcohol intake frequency: holidays/special occasions only Alcohol type: beer substance use type: does not use caffeine: Yes Type: coffee Number of servings: 1 what type of physical activity do you participate in: none pauly/latter day: Apostolic seatbelt use: always Physical Exam Const alert HEENT normocephalic Eyes no scleral icterus Resp normal respiratory effort Psych mental status grossly normal Risk Stratification Risk Stratification Applicable: No Charges/Coding Visit Charges Inpatient E&M: 77057 Init Hosp L1 Objective Data Vital Signs: Vital Signs Temp Pulse Resp BP Pulse Ox O2 Del Method 98.0 F 51 L 16 124/61 H 94 Room Air 08/01/24 08:44 08/01/24 08:44 08/01/24 08:44 08/01/24 08:44 08/01/24 08:44 08/01/24 08:44 Oxygen Delivery Method Room Air Weight: 129 lb 10.109 oz Body Mass Index (BMI) 18.1 Intake & Output: Intake and Output for Last 24 Hours 07/30/24 07/31/24 08/01/24 23:59 23:59 23:59 Intake Total 200 / 200 120 / 120 Output Total 200 / 200 Balance 190 / 190 -80 / -80 Lab / Micro Data 08/01/24 06:00 08/01/24 06:00 Labs: Laboratory Results - last 24 hr 07/31/24 08:22: Hemoglobin A1c 5.5 07/31/24 14:00: Troponin I High Sens Cancelled 07/31/24 14:00: Troponin I High Sens 1330 H* 08/01/24 06:00: WBC 8.7, RBC 4.44 L, Hgb 13.0, Hct 41.0, MCV 92.3, MCH 29.3, MCHC 31.7 L, RDW Std Deviation 48.5 H, RDW Coeff of Jason 14.3, Plt Count 229, MPV 11.0, Immature Gran % (Auto) 0.200, Neut % (Auto) 54.1, Lymph % (Auto) 30.7, [place] % (Auto) 10.8 H, Eos % (Auto) 3.4, Baso % (Auto) 0.8, Absolute Neuts (auto) 4.7, Absolute Lymphs (auto) 2.68, Nucleated RBC % 0, Sodium 142, Potassium 3.8, Chloride 110 H, Carbon Dioxide 28.0, Anion Gap 4 L, BUN 25 H, Creatinine 1.11, Estim Creat Clear Calc 44.14, Est GFR (MDRD) Af Amer 82, Est GFR (MDRD) Non-Af 68, BUN/Creatinine Ratio 22.5 H, Glucose 92, Calcium 8.5, Phosphorus 3.8, Magnesium 2.2, Troponin I High Sens 369 H*, Triglycerides 55, Cholesterol 115, LDL Cholesterol 51, VLDL Cholesterol 11, HDL Cholesterol 53 Rhythm Strip Rhythm Strip: Sinus Rhythm Rate: 55 Ectopy: None Cardiology Labs/Tests 07/31/24 08:22: Hemoglobin A1c 5.5 08/01/24 06:00: WBC 8.7, RBC 4.44 L, Hgb 13.0, Hct 41.0, MCV 92.3, MCH 29.3, MCHC 31.7 L, Plt Count 229, MPV 11.0, Immature Gran % (Auto) 0.200, Neut % (Auto) 54.1, Lymph % (Auto) 30.7, [place] % (Auto) 10.8 H, Eos % (Auto) 3.4, Baso % (Auto) 0.8, Absolute Neuts (auto) 4.7, Nucleated RBC % 0, Sodium 142, Potassium 3.8, Chloride 110 H, Carbon Dioxide 28.0, Anion Gap 4 L, BUN 25 H, Creatinine 1.11, Est GFR (MDRD) Af Amer 82, Est GFR (MDRD) Non-Af 68, BUN/Creatinine Ratio 22.5 H, Glucose 92, Calcium 8.5, Phosphorus 3.8, Magnesium 2.2, Triglycerides 55, Cholesterol 115, LDL Cholesterol 51, VLDL Cholesterol 11, HDL Cholesterol 53 Rhythm: EKG: ECHO: Stress Test: Cardiac Cath: PCI: CT Surgery: Holter monitor: EPS: PPM: CXR: Chest CT Scan:
[2024-08-01] MEDS: Donepezil HCl 10 MG Tablet PO (21:25)
[2024-08-01] MEDS: Doxazosin 1 MG Tablet PO (21:25)
[2024-08-01] MEDS: Mirtazapine 15 MG Tablet 7.5 MG PO (21:25)
[2024-08-01] MEDS: Atorvastatin Calcium 40 MG Tablet PO (21:26)
[2024-08-02 03:00] VITALS: BP 101/62; PULSE 50; RESP 16; TEMP 36.6; O2SAT 94
[2024-08-02 04:04] VITALS: BMI 18.8
[2024-08-02 05:00] VITALS: BMI 18.8
[2024-08-02 06:02] LABS: Absolute Neutrophil Count 5.6 X10^3/uL (2.0-7.7); Basophil# 0.06 X10^3/uL; Basophil% 0.7 % (0-1); Eosinophil# 0.25 X10^3/uL; Eosinophils% 2.9 % (0-5); Hematocrit 41.2 % (40-54); Hemoglobin 13.1 g/dL (13.0-16.5); Lymphocyte % 22.1 % (19-41); Mean Corp Hgb Conc 31.8 g/dL (32-36); Mean Corpuscular Hgb 29.3 pg (27.0-32.0); Mean Corpuscular Volume 92.2 fL (80-94); Mean Platelet Vol. 10.7 fl (6.2-12.0); Monocyte# 0.76 X10^3/uL; Monocyte% 8.9 % (0-10); NRBC Flagged by Analyzer 0 % (0-5); Neutrophil # 5.59 X10^3/uL (2.7-7.7); Neutrophil % 65.2 % (47-70); Platelet Count 211 K/mm3 (150-450); RBC Distribution Width CV 14.3 % (11.6-14.6); RBC Distribution Width SD 48.2 fl (35.1-43.9); Red Blood Count 4.47 M/mm3 (4.6-6.2); White Blood Count 8.6 K/mm3 (4.4-11.0)
[2024-08-02] MEDS: Albuterol 2.5 MG/3 ML VIAL.NEB. INHALATION (06:22)
[2024-08-02] MEDS: Budesonide Respules 0.5 MG/2 ML AMPUL.NEB. INHALATION (06:22)
[2024-08-02 06:23] VITALS: PULSE 59; RESP 18; O2SAT 93
[2024-08-02 06:37] LABS: Anion Gap 4 (5-15); BUN 23 mg/dL (7-18); Calcium,Total 8.8 mg/dL (8.5-10.1); Chloride 113 mmol/L (98-107); Creatinine, Serum 0.92 mg/dL (0.70-1.30); EST Glomerular Filtration Rate 84 mL/min (>60); Est Glom Filt Rate - Afr Amer 102 mL/min (>60); Estimated Creatinine Clearance 55.62 ml/min; Glucose 95 mg/dL (74-106); Potassium 3.8 mmol/L (3.5-5.1); Sodium Level 142 mmol/L (136-145)
[2024-08-02 07:35] VITALS: BP 146/75; PULSE 70; RESP 18; TEMP 36.6; O2SAT 96
[2024-08-02] MEDS: amLODIPine 5 MG Tablet PO (07:37)
[2024-08-02] MEDS: APIXABAN 2.5 MG TABLET (WCH) PO (07:37)
[2024-08-02] MEDS: Lisinopril 40 MG Tablet PO (07:37)
[2024-08-02] MEDS: Carvedilol 12.5 MG Tablet PO (07:37)
[2024-08-02] MEDS: Aspirin E.C. 81 MG Tablet PO (07:40)
[2024-08-02] MEDS: Pantoprazole Sodium 40 MG Tablet PO (07:41)
--- NOTE | 2024-08-02 09:15 | CASEMGMT ---
RICHARDSON ALMONTE Assessment: Face to Face with pt for initial transition planning/care coordination assessment. RICHARDSON ALMONTE introduced self and role at [facility], pt voices understanding and consents to assessment. Pt is A&O x4 and answers all questions appropriately at this time. Pt sitting up in bed in no distress. Care providers, pharmacy, and demographics verified/updated. Strata: 2 Admitting Dx: Elevated Triponin, altered mental status PCP: Kimani Specialists: Sathish, Foot Orthopedist Preferred Pharmacy: [facility] Insurance: [facility], [facility] – [place], [place] Prescription Benefit: yes LNOK: , Judie; Son, Jayjay Living Arrangements: Pt lives with in a 1 story home with 2 steps and handrails to enter. ADLs: Pt states I with ADLs and IADLs. Transportation: Pt reports friends provide transportation. DME: Walker, Cane, shower chair. HHC/SNF: Denies Hx of SNF, states currently using [facility]HC. Pt states no concerns with going home at time of dc. Discussed HHC for pt, pt declined wanting services. Pt states no further concerns/needs. CM to follow. Advised pt to ask CM if any further question/concerns/needs arise, voices understanding. Pt Goal: Home Plan: Home, follow plan of care. González BAI CM
[2024-08-02 14:28] VITALS: BP 108/81; PULSE 52; RESP 18; TEMP 36.6; O2SAT 97
[2024-08-02 14:39] VITALS: BMI 18.8
--- NOTE | 2024-08-02 15:36 | PCM.DC ---
Discharge Instructions Diet Discharge Diet: Low fat / Low cholesterol Activity Discharge Activity: Return to Normal Activity Dressing / Incision Call your doctor if you observe: Fever of 101 or Higher, Shortness of breath, Dizziness, Fainting spells, Swelling in the ankles, Chest pain and Increased palpitations (irregular heartbeat) Follow Up Care Test Results: Test results from this visit will be discussed in further detail at your follow-up appointment, if applicable. Discharge Plan Admission Admit Date/Time: 07/31/24 11:08 Attending Provider: Wagner Grider Primary Care Provider: Gio Harman Chi Consulting Providers: Yordan Townsend; Dennis Wyman; Leyda Edwards; Beverley Miller; Martina Esparza; Anthony Mendoza; Zara Melchor; Pancho Franks; Montrell Chavez; Omer Alexis; Fely Frias; Chau Storey; Saray Cleveland; Andrae Perez; Ulises Bustamante; Lavon Raymundo; Nidia Figueroa; Tristan Calderón; Isela Perez; Kyree Wooten; Samra Barker; Jazmine Hodges; Cedric Hinojosa; Alexey Chilel; MELE NAVARRO; Vishnu Cervantes; Marge Tolbert; Tino Stockton Discharge Orders/Prescriptions Prescriptions: New aspirin 81 mg Tablet,Delayed Release (Dr/Ec) 81 mg PO BREAKFAST Qty: 30 0RF pantoprazole 40 mg Tablet,Delayed Release (Dr/Ec) 40 mg PO DAILY 30 Days Qty: 30 0RF Continued lisinopril 40 mg tablet 40 mg PO DAILY Eliquis 2.5 mg tablet 2.5 mg PO BID doxazosin 1 mg tablet 1 mg PO QHS carvedilol [Coreg] 12.5 mg tablet 12.5 mg PO BID Rx Instructions: must administer with a meal/food buspirone 10 mg tablet 10 mg PO DAILY Qty: 30 6RF fluticasone furoate-vilanterol [Breo Ellipta] 100-25 mcg/dose blister with device 1 ea inhalation QDAY albuterol sulfate 90 mcg/actuation HFA aerosol inhaler 1 puff inhalation Q4H PRN (Reason: wheezing) fluoxetine 20 mg capsule 20 mg PO QDAY atorvastatin 40 mg tablet 40 mg PO DAILY amlodipine 5 mg tablet 5 mg PO DAILY donepezil 10 mg tablet 10 mg PO QHS mirtazapine 7.5 mg tablet 7.5 mg PO QHS Referrals / Follow Up: Gio Harman Chi, MD [Primary Care Provider] - Within 1 Week Disposition Disposition (needs filled in before D/C Order can be placed): Home, Self Care
--- NOTE | 2024-08-02 16:26 | PCM.DC.SUM ---
Providers Date of Admission: 07/31/24 Primary Care Physician: Dr. Gio Harman MD Consultations 07/31/24 12:39 Consult: Tele-Neurology Routine Consulting Provider: [facility] Reason for Consult: Acute Ischemic Stroke/TIA EMERGENT Consult: No Notified: Yes Date Notified: 07/31/24 Time Notified: 13:56 Method of Notification: Answering Service Nursing Unit Staff Notify [facility] of Tele-Neurology Consult: Yes 08/01/24 07:26 Consult: Cardiology Routine Consulting Provider: Samra Barker Reason for Consult: NSTEMI EMERGENT Consult: No Notified: Yes Date Notified: 07/31/24 Time Notified: 16:00 Method of Notification: Verbal Reason For Visit: ELEVATED TROPONIN, ALTERED MENTAL STATUS Diagnosis Discharge Diagnosis (1) Elevated troponin: Status: Acute Code(s): R79.89 - Other specified abnormal findings of blood chemistry Medications at Discharge Home Medications amlodipine 5 mg tablet 5 mg PO DAILY BLOOD PRESSURE 11/19/22 atorvastatin 40 mg tablet 40 mg PO DAILY CHOLESTEROL 11/19/22 apixaban 2.5 mg tablet (Eliquis) 2.5 mg PO BID anticlotting 01/23/23 carvedilol 12.5 mg tablet (Coreg) 12.5 mg PO BID heart 01/23/23 doxazosin 1 mg tablet 1 mg PO QHS bph 01/23/23 lisinopril 40 mg tablet 40 mg PO DAILY hypertension 01/23/23 buspirone 10 mg tablet 10 mg PO DAILY anxiety #30 tabs 09/22/23 albuterol sulfate 90 mcg/actuation aerosol inhaler 1 puff inhalation Q4H PRN wheezing 01/09/24 fluticasone furoate 100 mcg-vilanterol 25 mcg/dose inhalation powder (Breo Ellipta) 1 ea inhalation QDAY copd 01/09/24 fluoxetine 20 mg capsule 20 mg PO QDAY depression 03/29/24 donepezil 10 mg tablet 10 mg PO QHS appetite 07/31/24 mirtazapine 7.5 mg tablet 7.5 mg PO QHS appetite stimulant 07/31/24 aspirin 81 mg tablet,delayed release 81 mg PO BREAKFAST #30 tabs 08/02/24 pantoprazole 40 mg tablet,delayed release 40 mg PO DAILY 30 days #30 tabs 08/02/24 Hospital Course Operations None Procedures 2-D Echocardiogram and Electroencephalogram Summary of Care Provided Minutes Spent on Discharge: 38 Hospital Course: Per HPI: JULI NAQVI, is a 78 M who presents with altered mental status. Patient has significant past medical history including coronary artery disease with previous DAVID to an LAD lesion, hypercoagulable state with factor V Leiden mutation with previous PE and DVT on systemic anticoagulation with apixaban, multiple intracranial hemorrhage who was brought to the emergency department by the family. Per son who provided a history patient woke up on the morning of his presentation delirious. He was of service about fixing a truck which apparently did not exit. 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 Son was worried given patient's significant past history patient was brought to the emergency department. CT obtained did not show any evidence of intracranial bleed no acute ischemic infarct or acute intracranial abnormality. Patient was found to have elevated troponin. Subsequently admitted to a monitored bed for further management Hospital Course: 1. Acute encephalopathy with an elevated troponin?78-year-old male presented to the hospital with altered mental status. He does have a history of factor V Leiden with previous PEs and DVTs already on Eliquis. CT scan was negative for head bleed and MRI was negative for an acute or subacute infarct. Today his altered mental status is completely resolved, EEG was essentially unremarkable showed some signs consistent with encephalopathy. He would like to go home and family is okay with taking him home, I discussed the possibility of discharged and they expressed understanding of the risk benefits going home and would like to take him home today. He also did have an elevated troponin without any signs of chest pain and a normal EKG. Echo was unremarkable with a normal EF and stage I diastolic dysfunction. He is on statin and despite being on low-dose Eliquis I did elect to proceed with aspirin and then the addition of a PPI for GI prophylaxis. I discussed extensively with the son the risks and benefits of adding aspirin to his medication regimen. He does see cardiology at this hospital and will schedule follow-up appointment. 2. Factor V Leiden, essential hypertension, hyperlipidemia, BPH with lower urinary obstructive symptoms, vascular dementia, depression, history of intracranial hemorrhage are chronic medical conditions which complicates his care. His home medications were continued where appropriate Physical Exam Narrative General: Alert, Oriented x3, Cooperative, No apparent distress HEENT: Atraumatic, PERRLA, EOMI, Normocephalic Oral: Moist Mucosa Neck: Supple, No JVD Lungs: Clear to auscultation, Normal air movement, No rhonchi, No wheeze, No rales Cardiovascular: Regular rate, Regular Rhythm, Normal S1, Normal S2, No murmurs Abdomen: Soft, Non Tender, Non-Distended, No Hepato-splenomegaly Extremities: No edema, Capillary Refill Less than 3 Seconds Skin: No rashes, No breakdown Musculoskeletal: No Tenderness to Palpation of Joints or Extremities Neurological: No focal neurological deficits, Motor Exam 5/5 strength throughout, Sensory exam intact to light touch and pain Psych/Mental Status: Normal Affect, Appropriate Medical Records Data Medical Nutrition Assessment Dietitian: Malnutrition Criteria Met Start: 07/31/24 15:07 Freq: Status: Active Protocol: Document 07/31/24 15:07 [facility] (Rec: 07/31/24 15:07 [facility] [id number]) Nutrition Malnutrition Evidence of Malnutrition Exists Yes Malnutrition (severe): Chronic Evidenced By Suboptimal Energy Intake ( Severe),Weight Loss (Severe), Physical Changes (Severe) Clinical Problem Chronic Disease or Condition Related Malnutrition Etiology related to inadequate energy intake Signs/Symptoms as evidenced by pt w/ wt down to 52.7 kg and po intake meeting <75% x 1 yr - po intake improving since on remeron x ~ 1 mo ago- pt w/ obvious fat loss/muscle wasting throughout body; BMI 17.3 Status Active Problem Recommendation Dietitian Recommendations/Changes Will liberalize diet to Regular w/ 8 oz chocolate CIB w/ meals for increased nutrition if consumed Rec continue appetite stimulant Weight / BMI Weight Weight: 135 lb 5.821 oz Body Mass Index (BMI) 18.8 ABG / Lab / Microbiology Data 08/02/24 05:32 08/02/24 05:32 Laboratory: Laboratory Results - last 24 hr 08/02/24 05:32: WBC 8.6, RBC 4.47 L, Hgb 13.1, Hct 41.2, MCV 92.2, MCH 29.3, MCHC 31.8 L, RDW Std Deviation 48.2 H, RDW Coeff of Jason 14.3, Plt Count 211, MPV 10.7, Immature Gran % (Auto) 0.200, Neut % (Auto) 65.2, Lymph % (Auto) 22.1, [place] % (Auto) 8.9, Eos % (Auto) 2.9, Baso % (Auto) 0.7, Absolute Neuts (auto) 5.6, Absolute Lymphs (auto) 1.90, Nucleated RBC % 0, Sodium 142, Potassium 3.8, Chloride 113 H, Carbon Dioxide 25.0, Anion Gap 4 L, BUN 23 H, Creatinine 0.92, Estim Creat Clear Calc 55.62, Est GFR (MDRD) Af Amer 102, Est GFR (MDRD) Non-Af 84, BUN/Creatinine Ratio 25.0 H, Glucose 95, Calcium 8.8 Radiography Diagnostic Testing: Radiology Impression Echocardiogram 07/31/24 12:39 Interpretation Summary Normal LV size. Left ventricular systolic function is normal. The left ventricular ejection fraction is 65 %. Stage 1 diastolic dysfunction. Bubble contrast study negative for right to left interatrial shunt. Ordering Physician: Tino Stockton Referring Physician: Gio Harman Chi Performed By: Italia Lauren RDCS D/C Instructions Discharge Diet: Low fat / Low cholesterol Call your doctor if you observe: Fever of 101 or Higher, Shortness of breath, Dizziness, Fainting spells, Swelling in the ankles, Chest pain and Increased palpitations (irregular heartbeat) Meaningful Use Info Meaningful Use Meaningful Use Diagnoses (Choose all that apply): None applicable Ischemic Stroke Statin Dosing Therapy Reference: STATIN DOSE THERAPY REFERENCE: * Patients > 75 years receive moderate or high dose statin therapy. * Patients 75 years or YOUNGER should receive HIGH intensity statin dose unless contraindicated. You will be required to document reason for non-treatment if statin daily dose does not meet guidelines. HIGH DOSE STATIN THERAPY DAILY Atorvastatin > than or = to 40 mg Rosuvastatin > than or = to 20 mg Amlodipine + Atorvastatin > than or = to 2.5/40 mg Ezetimibe + Simvastatin 10/80 mg Simvastatin 80mg Discharge Plan Admission Admit Date/Time: 07/31/24 11:08 Attending Provider: Wagner Grider Primary Care Provider: Gio Harman Chi Consulting Providers: Yordan Townsend; Dennis Wyman; Leyda Edwards; Beverley Miller; Martina Esparza; Anthony Mendoza; Zara Melchor; Pancho Franks; Montrell Chavez; Omer Alexis; Fely Frias; Chau Storey; Saray Cleveland; Andrae Perez; Ulises Bustamante; Lavon Raymundo; iNdia Figueroa; Tristan Calderón; Isela Perez; Kyree Wooten; Samra Barker; Jazmine Hodges; Cedric Hinojosa; Alexey Chilel; MELE NAVARRO; Vishnu Cervantes; Marge Tolbert; Tino Stockton Discharge Orders/Prescriptions Prescriptions: New aspirin 81 mg Tablet,Delayed Release (Dr/Ec) 81 mg PO BREAKFAST Qty: 30 0RF pantoprazole 40 mg Tablet,Delayed Release (Dr/Ec) 40 mg PO DAILY 30 Days Qty: 30 0RF Continued lisinopril 40 mg tablet 40 mg PO DAILY Eliquis 2.5 mg tablet 2.5 mg PO BID doxazosin 1 mg tablet 1 mg PO QHS carvedilol [Coreg] 12.5 mg tablet 12.5 mg PO BID Rx Instructions: must administer with a meal/food buspirone 10 mg tablet 10 mg PO DAILY Qty: 30 6RF fluticasone furoate-vilanterol [Breo Ellipta] 100-25 mcg/dose blister with device 1 ea inhalation QDAY albuterol sulfate 90 mcg/actuation HFA aerosol inhaler 1 puff inhalation Q4H PRN (Reason: wheezing) fluoxetine 20 mg capsule 20 mg PO QDAY atorvastatin 40 mg tablet 40 mg PO DAILY amlodipine 5 mg tablet 5 mg PO DAILY donepezil 10 mg tablet 10 mg PO QHS mirtazapine 7.5 mg tablet 7.5 mg PO QHS Referrals / Follow Up: Gio Harman Chi, MD [Primary Care Provider] - Within 1 Week Disposition Disposition (needs filled in before D/C Order can be placed): Home, Self Care Charges/Coding Visit Charges Inpatient E&M: 69268 Disch Hosp >30min
--- NOTE | 2024-08-02 16:42 | PHA.DC.MR.R ---
Pharmacy [place] Med Reconciliation Pharmacy Service has performed discharge medication reconciliation for this patient. The patient's discharge medication list was reviewed for discrepancies and discrepancies were resolved. Medications at Discharge Home Medications amlodipine 5 mg tablet 5 mg PO DAILY BLOOD PRESSURE 11/19/22 atorvastatin 40 mg tablet 40 mg PO DAILY CHOLESTEROL 11/19/22 apixaban 2.5 mg tablet (Eliquis) 2.5 mg PO BID anticlotting 01/23/23 carvedilol 12.5 mg tablet (Coreg) 12.5 mg PO BID heart 01/23/23 doxazosin 1 mg tablet 1 mg PO QHS bph 01/23/23 lisinopril 40 mg tablet 40 mg PO DAILY hypertension 01/23/23 buspirone 10 mg tablet 10 mg PO DAILY anxiety #30 tabs 09/22/23 albuterol sulfate 90 mcg/actuation aerosol inhaler 1 puff inhalation Q4H PRN wheezing 01/09/24 fluticasone furoate 100 mcg-vilanterol 25 mcg/dose inhalation powder (Breo Ellipta) 1 ea inhalation QDAY copd 01/09/24 fluoxetine 20 mg capsule 20 mg PO QDAY depression 03/29/24 donepezil 10 mg tablet 10 mg PO QHS appetite 07/31/24 mirtazapine 7.5 mg tablet 7.5 mg PO QHS appetite stimulant 07/31/24 aspirin 81 mg tablet,delayed release 81 mg PO BREAKFAST #30 tabs 08/02/24 pantoprazole 40 mg tablet,delayed release 40 mg PO DAILY 30 days #30 tabs 08/02/24
== END 2024-08-02 18:10 | disposition home or self-care (01) | DRG 70 ==
LOC: ED 11:41 → PCU 11:47
PROVIDERS: Family Medicine; Admitting Provider Internal Medicine; Emergency Provider Emergency Medicine; PCP Family Medicine Geriatric Medicine; Visit Provider Family Medicine
DX: G93.40 Encephalopathy, unspecified (principal); E43 Unspecified severe protein-calorie malnutrition; F01.52 Vascular dementia, unspecified severity, with psychotic disturbance; N13.8 Other obstructive and reflux uropathy; Z68.1 Body mass index [BMI] 19.9 or less, adult; D68.51 Activated protein C resistance; F32.A Depression, unspecified; I10 Essential (primary) hypertension; E78.5 Hyperlipidemia, unspecified; I25.10 Atherosclerotic heart disease of native coronary artery without angina pectoris; F17.290 Nicotine dependence, other tobacco product, uncomplicated; N40.1 Benign prostatic hyperplasia with lower urinary tract symptoms; R77.8 Other specified abnormalities of plasma proteins; Z66 Do not resuscitate; Z63.4 Disappearance and death of family member; Z95.5 Presence of coronary angioplasty implant and graft; Z79.01 Long term (current) use of anticoagulants; Z79.899 Other long term (current) drug therapy; Z86.79 Personal history of other diseases of the circulatory system; Z86.711 Personal history of pulmonary embolism; Z86.718 Personal history of other venous thrombosis and embolism
CPT/HCPCS: 36415; 70450; 70551; 71046; 80048; 80061; 81001; 83036; 83735; 84100; 84484; 85025; 93005; 93306; 94640; 94668; 94762; 95819; 97162; 97166; 97530; 97535; 97802; 99284; 99406; A4216

== ENCOUNTER → 2024-08-19 | Outpatient (CLI) | payer MEDICARE, OTHER, SELFPAY ==
--- OUTSIDE RECORDS SUMMARY | 2024-08-19 06:16 | XMS RPT_ITS | CCD ---
Author Organization [facility] ion Partnership [facility] Care Team Providers Care Assistant To The President Name Role Phone Cinthya Wilson Unavailable MD Sathish, [place] S Unavailable Hector Macias Unavailable Unavailable Cinthya Wilson Y Unavailable Joselito Wilsonia Y Unavailable DeFinis Harumi Y Unavailable Unavailable DeFinis, Harumi Y Unavailable Unavailable Joselito Wilsonia Y Unavailable Ender Rollins MD Primary Care Provider Ender Rollins MD Primary Care Provider Ender Rollins MD Primary Care Provider Ender Rollins MD Primary Care Provider ENDER ROLLINS Referring Unavailab ENDER Burch Primary Care Unavailab ENDER Burch Primary Care Unavailab ENDER Burch Referring Unavailab ENDER Burch Primary Care Unavailab ENDER Burch Referring Unavailab ENDER Burch Primary Care Unavailab ENDER Burch Referring Unavailab ENDER Burch Primary Care Unavailab ENDER Burch Referring Unavailab ENDER Burch Primary Care Unavailab ENDER Burch Referring Unavailab ENDER Burch Primary Care Unavailab ENDER Burch Referring Unavailab ENDER Burch Primary Care Unavailab le ENDER ROLLINS Referring Unavailab Ender Burch MD Primary Care Provider Sanjay Leong MD Unavailable [phone] YUN MARTE Attending Unavailable ENDER ROLLINS Primary Care Unavailab hernandez Blanc MD, Jenifer Primary Care Provider Ender Rollins MD Primary Care Provider JOHNNIE BHANDARI Attending Unavailable JOHNNIE BHANDARI Referring Unavailable ENDER ROLLINS Primary Care Unavailable SPROCKEL, SHARITA C Attending Unavailable SELF, SELF Referring Unavailable ENDER ROLLINS Primary Care Unavailable CONSULT, SURGERY - NEURO Consulting Unavail able FILIBERTO PEREZ Attending Unavailable ENDER ROLLINS Primary Care Unavailable ULISES GARCIA Admitting Unavaila SAMI Mcbride Referring Unavailable SPROCKEL, SHARITA C Attending Unavailable ENDER ROLLINS Primary Care Unavailable MARCELINO FIELD Referring Unavailable SPROCKEL, SHARITA C Attending Unavailable JOHANAOCKEL, SHARITA C Referring Unavailable ENDER ROLLINS Primary Care Unavailable Ender Rollins MD Primary Care Provider ENDER ROLLINS Primary Care Unavailab ENDER Burch Attending Unavailab ENDER Burch Referring Unavailab ENDER Burch Primary Care Unavailab ENDER Burch Primary Care Unavailab ENDER Burch Referring Unavailab ENDER Burch Primary Care Unavailab ENDER Burch Attending Unavailab ENDER Burch Primary Care Unavailab ENDER Burch Referring Unavailab ENDER Burch Attending Unavailab ENDER Burch Primary Care Unavailab ENDER Burch Attending Unavailab ENDER Burch Primary Care Unavailab ENDER Burch Primary Care Unavailab ENDER Burch Referring Unavailab ENDER Burch Attending Unavailab ENDER Burch Primary Care Unavailab MAKAYLA Valenzuela Attending Unavailable ENDER ROLLINS Primary Care Unavailab ENDER Burch Primary Care Unavailab le ALAMIRI, DARREN Attending Unavailable Allergies Allergy Classification Reported Allergen(s) Allergy Type Date of Onset Reaction(s) Facility eptifibatide (1 source) eptifibatide Drug Allergy 1 Other: See Comments [facility] heparin (1 source) heparin Drug Allergy 1 Other: See Comments [facility] Sulfonamides (antibiotic) (1 source) Sulfonamides (Antibiotic) Drug Allergy 7 Swelling [facility] (8 sources) eptifibatide drug allergy 1 [facility] Work Phone: [phone] (20 sources) heparin; Translations: [HEPARIN] drug allergy 1 Other: See Comments [facility] Work Phone: [phone] (8 sources) Sulfonamides (Antibiotic) drug allergy 1 [facility] Work Phone: [phone] (8 sources) warfarin drug allergy 7 Spont. intracerebral bleeding [facility] Work Phone: [phone] (20 sources) eptifibatide; Translations: [EPTIFIBATIDE] Drug Allergy 1 Other: See Comments [facility] (20 sources) Sulfonamides (Antibiotic); Translations: [SULFA (SULFONAMIDE ANTIBIOTICS)] Drug Allergy 7 Swelling [facility] (4 sources) Sulfonamides (Antibiotic) Propensity to adverse reactions to drug 7 Swelling [facility] Medications Current Medications Medication Drug Class(es) Dates Sig (Normalized) Sig (Original) acetaminophen 500 mg oral tablet (5 sources) Start: 12-13-2022 acetaminophen 500 MG tablet Take by mouth. 0 12/13/2022 Active Start: 11-20-2022 End: 11-29-2022 take 1 tablet by mouth every four hours as needed Acetaminophen (TYLENOL) tablet 325 mg Start: 11-20-2022 End: 11-20-2022 Acetaminophen (TYLENOL) tabl et [id number] 200 actuat albuterol 0.09 mg/actuat metered dose inhaler (20 sources) beta2-Adrenergic Agonist Start: 07-29-2023 take 2 puff(s) by inhalation every four hours as needed for wheezing albuterol HFA (VENTOLIN HFA) 90 mcg/actuation inhaler Indications: Cough in adult patient Inhale 2 Puffs as instructed every 4 hours as needed for wheezing/shortness of breath. 1 Each 2 07/29/2023 Active Start: 01-22-2023 take 2 puff(s) by in halation every four hours as needed for wheezing albuterol HFA (VENTOLIN HFA) 90 mcg/actuation inhaler Indications: Cough in adult patient Inhale 2 Puffs as instructed every 4 hours as needed for wheezing/shortness of breath. 1 Each 2 01/22/2023 Active Comment on above: Inhale 2 Puffs as in structed every 4 hours as needed for wheezing/shortness of breath. albuterol 0.833 mg/ml / ipratropium bromide 0.167 mg/ml inhalation solution (7 sources) Anticholinergic, beta2-Adrenergic Agonist Start: 12-02-2022 Ipratropium-albutero l 0.5-2.5 (3) MG/3ML nebulizer solution Inhale. 0 12/02/2022 Active Start: 11-25-2022 End: 11-29-2022 take 3 mL by inhalation every six hours as needed Ipratropium-albuterol (DUONEB) 0.5-2.5 (3) MG/3ML nebulizer solution 3 mL Start: 11-20-2022 End: 11-21-2022 take 3 mL by inhalation every six hours Ipratropium-albuterol (DUONEB) 0.5-2.5 (3) MG/3ML nebulizer solution 3 mL amLODIPine 5 mg oral tablet (20 sources) Dihydropyridine Calcium Channel Diana Start: 07-29-2023 End: 07-11-2024 take 1 tablet by mouth once daily amLODIPine (NORVASC) 5 mg tablet Indications: Primary hypertension Take 1 tablet by mouth once daily. 90 tablet 1 01/13/2024 Active Start: 11-22-2022 take 1 tablet by jennyfer th once daily amLODIPine 10 MG tablet Take 1 tablet by mouth daily. 30 tablet 2 11/22/2022 Active Start: 11-21-2022 End: 11-29-2022 amLODIPine (NORVASC) tablet 10 mg Start: 02-01-2022 End: 07-26-2023 take 1 tablet by mouth once daily amLODIPine (NORVASC) 5 mg tablet Indications: Primary hypertension Take 1 tablet by mouth once daily. 90 tablet 1 01/27/2023 07/26/2023 Active Comment on above: Take 1 tablet by jennyfer th once daily. apixaban 2.5 mg oral tablet (20 sources) Factor Xa Inhibitor Start: 07-29-2023 End: 01-13-2024 take 1 tablet by mouth twice daily apixaban (ELIQUIS) 2.5 mg tab(s) Take 1 tablet by mouth two times a day. 180 tablet 1 01/13/2024 Active Start: 01-27-2023 End: 01-27-2023 take 1 tablet by mouth twice daily apixaban (ELIQUIS) 2.5 mg tab(s) Take 1 tablet by mouth twice daily. 180 tablet 1 01/27/2023 Active Start: 11-30-2022 take 1 tablet by jennyfer th every twelve hours Eliquis 2.5 MG tablet Indications: Factor V Leiden mutation , Dural venous sinus thrombosis Take 1 tablet by mouth every 12 hours. 60 tablet 2 11/30/2022 Active Comment on above: Take by mouth twice daily. Take 1 tablet by jennyfer th twice daily. Take 1 tablet by jennyfer th two times a day. aspirin 81 mg chewable tablet (20 sources) Platelet Aggregation Inhibitor, Nonsteroidal Anti-inflammatory Drug Start: 11-23-2022 End: 02-27-2023 aspirin 81 MG Chew Tab chewable tablet Chew 1 tablet daily. 30 tablet 2 11/29/2022 02/27/2023 Active Start: 04-07-2013 take 1 tablet by jennyfer th once daily ASPIRIN EC 81 MG TBEC One tablet by mouth daily ASPIRIN [id number] Paige Lu RN Start: 04-07-2013 ASPIRIN 81 MG TABS One tablet every other day ASPIRIN [id number] Yamini Roca PA-C Start: 04-07-2013 take 1 tablet by jennyfer th once daily ASPIRIN 325 MG TABS One tablet by mouth daily ASPIRIN [id number] Paige Lu RN Start: 04-07-2013 ASPIRIN 81 MG TABS One tablet every other day ASPIRIN [id number] Yamini Roca PA-C Start: 03-18-2011 take 1 tablet by jennyfer th once daily ASPIRIN 81 MG TABS One tablet by mouth daily ASPIRIN [id number] Deedee To Start: 03-18-2011 take 1 tablet by jennyfer th once daily ASPIRIN 81 MG TABS One tablet by mouth daily ASPIRIN [id number] Deedee To atorvastatin 40 mg oral tablet (20 sources) HMG-CoA Reductase Inhibitor Start: 02-01-2022 End: 01-12-2025 take 1 tablet by mouth once daily at bedtime atorvastatin (LIPITOR) 40 mg tablet Indications: Pure hypercholesterolemia Take 1 tablet by mouth daily at bedtime. 90 tablet 1 01/13/2024 01/12/2025 Active Comment on above: Take 1 tablet by jennyfer th daily at bedtime. busPIRone hydrochloride 5 mg oral tablet (20 sources) Start: 01-30-2024 take 2 tablets by mouth once daily busPIRone (BUSPAR) 5 mg tablet Take 2 tablets by mouth once daily. 90 tablet 1 01/30/2024 Active Start: 07-29-2023 take 1 tablet by jennyfer th once daily busPIRone (BUSPAR) 5 mg tablet Take 1 tablet by mouth once daily. 90 tablet 1 07/29/2023 Active Start: 01-27-2023 take 1 tablet by jennyfer th once daily busPIRone (BUSPAR) 5 mg tablet Take 1 tablet by mouth once daily. 90 tablet 1 01/27/2023 Active Start: 11-20-2022 End: 11-29-2022 take 5 mg by mouth once daily 5 mg, Oral, DAILY, First dose on Fri11/20/22 at 0915, Until Discontinued End: 01-27-2023 take 1 tablet by mouth twice daily busPIRone (BUSPAR) 5 mg tablet Take 5 mg by mouth twice daily. 0 01/27/2023 Discontinued Comment on above: Take 5 mg by mouth t wice daily. Take 1 tablet by jennyfer th once daily. carvedilol 12.5 mg oral tablet (20 sources) alpha-Adrenergic Diana, beta-Adrenergic Diana Start: 07-29-2023 End: 01-13-2024 take 1 tablet by mouth twice daily at mealtime carvedilol (COREG) 12.5 mg tablet Take 1 tablet by mouth two times a day with meals. 180 tablet 1 01/13/2024 Active Start: 01-27-2023 End: 01-27-2023 take 1 tablet by mouth twice daily at mealtime carvedilol (COREG) 12.5 mg tablet Take 1 tablet by mouth twice daily with meals. 180 tablet 1 01/27/2023 Active Start: 11-26-2022 End: 02-26-2023 take 1 tablet by mouth every twelve hours carveDILOL 6.25 MG tablet Take 1 tablet by mouth every 12 hours. 60 tablet 2 11/28/2022 02/26/2023 Active Comment on above: Take 12.5 mg by mout h twice daily with meals. Take 1 tablet by jennyfer th twice daily with meals. Take 1 tablet by jennyfer th two times a day with meals. cholecalciferol 1.25 mg oral capsule (20 sources) Vitamin D Start: 12-07-2022 Cholecalciferol 1.25 MG (10363 UT) capsule Take by mouth. 0 12/07/2022 Active take 1 capsule by mouth once chelsea ly Cholecalciferol, Vitamin D3, 125 mcg (5,000 unit) cap Take 5,000 Units by mouth once daily. Active Comment on above: Take 5,000 Units by mouth once daily. donepezil hydrochloride 5 mg oral tablet (8 sources) take 1 tablet by mouth once daily at bedtime donepezil (ARICEPT) 5 mg tablet Take 5 mg by mouth daily at bedtime. Active doxazosin 1 mg oral tablet (20 sources) alpha-Adrenergic Diana Start: 07-29-2023 End: 01-13-2024 take 1 tablet by mouth once daily at bedtime doxazosin (CARDURA) 1 mg tablet Take 1 tablet by mouth daily at bedtime. 90 tablet 1 01/13/2024 Active Start: 11-28-2022 End: 02-26-2023 take 1 tablet by mouth once daily at bedtime doxazosin (CARDURA) 1 mg tablet Take 1 tablet by mouth daily at bedtime. 90 tablet 1 01/27/2023 Active Comment on above: Take 1 mg by mouth d aily at bedtime. Take 1 tablet by jennyfer th daily at bedtime. FLUoxetine 20 mg oral capsule (10 sources) Serotonin Reuptake Inhibitor Start: 02-27-20 End: 11-09-19 take 1 capsule by mouth once daily FLUoxetine (PROZAC) 20 mg capsule Indications: SHON (generalized anxiety disorder) Take 1 capsule by mouth once daily. 90 capsule 1 05/13/2024 11/09/2024 Active 14 actuat fluticasone furoate 0.1 mg/actuat / vilanterol 0.025 mg/actuat dry powder inhaler (18 sources) Corticosteroid, beta2-Adrenergic Agonist Start: 01-28-20 End: 07-11-20 fluticasone-vilanterol (BREO ELLIPTA) 100-25 mcg/dose inhaler Inhale 1 Inhalation as instructed once daily. 60 Each 5 01/13/2024 Active Comment on above: Inhale 1 Inhalation as instructed once daily. iv contrast (will be provided with radiology test) (1 source) Start: 07-20-20 End: 07-21-20 iv contrast (will be provided with radiology test) CT kidney wow Inject, intravenously, once for 1 dose.No IV access, insert saline lock prior to the beginning of sedation, infusion, injection of imaging exam. Discontinue saline lock post exam. If Pt. has a central line or IVAD, may access for administration according to line specific nursing protocol. Once exam is complete flush line and de-access according to line specific nursing protocol in the CT contrast administration guidelines link. 1 Each 07/20/2024 07/21/2024 Active lisinopril 40 mg oral tablet (20 sources) Angiotensin Converting Enzyme Inhibitor Start: 11-29-19 End: 07-11-20 take 1 tablet by mouth once daily lisinopril (ZESTRIL) 40 mg tablet Indications: Primary hypertension Take 1 tablet by mouth once daily. 90 tablet 1 01/13/2024 Active Start: 11-22-2022 End: 11-29-2022 Lisinopril (PRINIVIL) tablet 40 mg Start: 11-21-2022 End: 11-21-2022 Lisinopril (PRINIVIL) tablet 10 mg Start: 02-15-2022 End: 01-27-2023 take 1 tablet by mouth once daily lisinopril (ZESTRIL, PRINIVIL) 20 mg tablet Indications: Primary hypertension Take 1 tablet by mouth once daily. 90 tablet 1 02/15/2022 01/27/2023 Discontinued Start: 02-01-2022 End: 07-31-2022 take 1 tablet by mouth once daily lisinopril (ZESTRIL, PRINIVIL) 40 mg tablet Indications: Primary hypertension Take 1 tablet by mouth once daily. 90 tablet 1 02/01/2022 02/15/2022 Discontinued Comment on above: Take 1 tablet by jennyfer once daily. mirtazapine 7.5 mg oral tablet (1 source) Start: 07-12-20 take 1 tablet by mouth once daily at bedtime Mirtazapine (REMERON) 7.5 mg tablet Take 7.5 mg by mouth daily at bedtime. 07/12/2024 Active 24 hr nicotine 0.583 mg/hr transdermal system (4 sources) Cholinergic Nicotinic Agonist Start: 11-29-19 End: 12-13-19 apply 1 dose transdermal route every twenty-four hours nicotine 14 MG/24HR Patch [address] 1 patch on skin every 24 hours for 14 days. 14 patch 0 11/29/2022 Active Start: 11-22-2022 End: 11-29-2022 nicotine (NICODERM CQ) 14 MG /24HR patch 1 patch Completed/Discontinued Medications Medication Drug Class(es) Dates Sig (Normalized) Sig (Original) cefepime 2000 mg injection (3 sources) Cephalosporin Antibacterial Start: 11-23-2022 End: 11-29-2022 take 2 g intravenously every twelve hours ceFEPIme (MAXIPIME) 2 g in dextrose 100 ml premix IVPB doxycycline hyclate 100 mg oral tablet (4 sources) Tetracycline-class Drug Start: 05-11-2024 End: 05-21-2024 take 1 tablet by mouth twice daily doxycycline (VIBRA-TABS) 100 mg tablet Indications: Cellulitis of skin Take 1 tablet by mouth two times a day for 10 days. 20 tablet 05/11/2024 05/21/2024 enalapril maleate 20 mg oral tablet (20 sources) Angiotensin Converting Enzyme Inhibitor Start: 10-29-2016 take 1 tablet by mouth once daily ENALAPRIL MALEATE 20 MG TABS One tablet by mouth daily ENALAPRIL MALEATE [id number] Russ Bower MD Start: 03-18-2011 End: 06-12-2016 take 1 tablet by mouth once daily ENALAPRIL MALEATE 20 MG TABS One tablet by mouth daily ENALAPRIL MALEATE [id number] Russ Bower MD Enoxaparin Sodium (LOVENOX) injection 40 mg (1 source) Start: 11-22-2022 End: 11-29-2022 Enoxaparin Sodium (LOVENOX) injection 40 mg gadoterate Meglumine (DOTAREM) 5 MMOL/10ML injection 3-60 mL (1 source) Start: 11-20-2022 End: 11-20-2022 gadoterate Meglumine (DOTAREM) 5 MMOL/10ML injection 3-60 mL hydrALAZINE hydrochloride 25 mg oral tablet (3 sources) Arteriolar Vasodilator Start: 11-25-2022 End: 11-26-2022 hydrALAZINE (APRESOLINE) tablet 75 mg Start: 11-24-2022 End: 11-25-2022 hydrALAZINE (APRESOLINE) tab let 50 mg Start: 11-23-2022 End: 11-23-2022 hydrALAZINE (APRESOLINE) inj ection hydrALAZINE (APRESOLINE) injection 10 mg (2 sources) Start: 11-24-2022 End: 11-29-2022 take 10 mg intravenously every hour as needed hydrALAZINE (APRESOLINE) injection 10 mg Start: 11-23-2022 End: 11-24-2022 take 10 mg intravenously every hour as needed hydrALAZINE (APRESOLINE) injection 10 mg hydroCHLOROthiazide 12.5 mg oral capsule (20 sources) Thiazide Diuretic Start: 02-15-2022 End: 01-22-2023 take 1 capsule by mouth once daily hydroCHLOROthiazide (HYDRODIURIL, ESIDRIX) 12.5 mg capsule Take 1 capsule by mouth once daily. 90 capsule 1 02/15/2022 01/22/2023 Discontinued Start: 03-18-2011 End: 06-06-2017 take 1 tablet by mouth once daily HYDROCHLOROTHIAZIDE 25 MG TABS One tablet by mouth daily HYDROCHLOROTHIAZIDE [id number] Russ Bower MD Comment on above: Take 1 capsule by [facility] once daily. hydrOXYzine hydrochloride 10 mg oral tablet (1 source) Antihistamine Start: End: hydrOXYzine hcl (ATARAX) tablet 10 mg iohexol (OMNIPAQUE) 350 MG/ML injection 1-171 mL (1 source) Start: End: iohexol (OMNIPAQUE) 350 MG/ML injection 1-171 mL labetalol hydrochloride 5 mg/ml injectable solution (2 sources) beta-Adrenergic Diana Start: End: take 10 mg intravenously every four hours as needed Labetalol (NORMODYNE) injection 10 mg Start: 11-20-2022 End: 11-20-2022 Labetalol (NORMODYNE) inject ion 20 mg Labetalol (NORMODYNE) injection 10 mg (2 sources) Start: 11-24-2022 End: 11-29-2022 take 10 mg intravenously every hour as needed Labetalol (NORMODYNE) injection 10 mg Start: 11-23-2022 End: 11-24-2022 take 10 mg intravenously every hour as needed Labetalol (NORMODYNE) injection 10 mg lidocaine hydrochloride 0.02 mg/mg topical gel (2 sources) Antiarrhythmic, Amide Local Anesthetic Start: 11-28-2022 End: 11-28-2022 Lidocaine HCl Urethral/Mucosal 2 % jelly prefilled syringe (Urojet) PRSY 10 mL melatonin 3 mg oral tablet (1 source) Start: 11-22-2022 End: 11-29-2022 Melatonin tablet 3 mg 200 ml niCARdipine hydrochloride 0.2 mg/ml injection (2 sources) Dihydropyridine Calcium Channel Diana Start: 11-22-2022 End: 11-23-2022 niCARdipine in sodium chloride (CARDENE) 40 mg-0.83/200 ml premix IV infusion Start: 11-20-2022 End: 11-20-2022 niCARdipine in sodium chlori de (CARDENE) 40 mg-0.83/200 ml premix IV infusion Ondansetron 4mg/2ml (ZOFRAN) injection 4 mg (1 source) Start: 11-20-2022 End: 11-29-2022 take 4 mg intravenously every six hours as needed Ondansetron 4mg/2ml (ZOFRAN) injection 4 mg piperacillin 4000 mg / tazobactam 500 mg injection (1 source) Penicillin-cla ss Antibacterial, beta Lactamase Inhibitor Start: 11-26-2022 End: 11-26-2022 Piperacillin-vielka obactam (ZOSYN) 4.5 g in dextrose premix IVPB polyethylene glycol 3350 52047 mg powder for oral solution (1 source) Osmotic Laxative Start: 11-20-2022 End: 11-29-2022 Polyethylene glycol (MIRALAX) packet 17 g microencapsulated potassium chloride 20 meq extended release oral tablet (3 sources) Start: 11-27-2022 End: 11-27-2022 Potassium chloride (K-DUR) tablet ER 40 mEq Start: 11-23-2022 End: 11-23-2022 Potassium chloride (K-DUR) t ablet ER 40 mEq Start: 11-21-2022 End: 11-21-2022 Potassium chloride (K-DUR) t ablet ER 20 mEq 1000 ml potassium chloride 0.02 meq/ml / sodium chloride 9 mg/ml injection (1 source) Start: 11-20-2022 End: 11-20-2022 sodium chloride 0.9% 1,000 ml with potassium chloride 20 mEq premix IV solution Prothrombin Complex Conc Human (KCENTRA) (Contains Heparin) IVPB 541 Units (1 source) Start: 11-20-2022 End: 11-20-2022 Prothrombin Complex Conc Human (KCENTRA) (Contains Heparin) IVPB 541 Units QUEtiapine 25 mg oral tablet (1 source) Atypical Antipsychotic Start: 11-22-2022 End: 11-29-2022 QUEtiapine (SEROquel) tablet 25 mg sennosides, senior care 8.6 mg oral tablet (1 source) Start: 11-20-2022 End: 11-29-2022 Senna (SENOKOT) tablet 8.6 mg sertraline 50 mg oral tablet (1 source) Serotonin Reuptake Inhibitor Start: 01-30-2024 End: 02-27-2024 take 1 tablet by mouth once daily sertraline (ZOLOFT) 50 mg tablet Take 1 tablet by mouth once daily. 30 tablet 2 01/30/2024 02/27/2024 Discontinued simvastatin 80 mg oral tablet (20 sources) HMG-CoA Reductase Inhibitor Start: 03-18-2011 take 1 tablet by mouth once daily SIMVASTATIN 80 MG TABS One tablet by mouth daily SIMVASTATIN [id number] Jin Quinones BUS PERSON-C 1000 ml sodium chloride 9 mg/ml injection (4 sources) Start: 11-24-2022 End: 11-25-2022 Sodium chloride 0.9% IV solution Start: 11-20-2022 End: 11-20-2022 Sodium chloride (PF) 0.9 % i njection 1-100 mL Start: 11-20-2022 End: 11-29-2022 Sodium chloride 0.9% IV solu tion 250 mL Start: 11-20-2022 End: 11-20-2022 Sodium chloride 0.9% IV solu tion Vancomycin HCl in NaCl (Vancocin) 1,250 mg 287.5 ml premade IVPB (1 source) Start: 11-23-2022 End: 11-25-2022 Vancomycin HCl in NaCl (Vancocin) 1,250 mg 287.5 ml premade IVPB warfarin sodium 5 mg oral tablet (20 sources) Vitamin K Antagonist Start: 06-12-2022 End: 01-22-2023 warfarin (COUMADIN) 5 mg tablet 7.5 mg daily or as directed 50 tablet 5 06/12/2022 01/22/2023 Discontinued Start: 05-22-2022 warfarin (COUM QUETA) 5 mg tablet 7.5 mg daily or as directed 50 tablet 5 05/22/2022 Active Start: 02-01-2022 End: 05-22-2022 warfarin (COUMADIN) 5 mg tab let 10 mg on Mondays and 7.5 mg all other other days or as directed 50 tablet 5 02/01/2022 05/22/2022 Discontinued Start: 11-30-2012 End: 10-29-2016 take 2.5 tablets by mouth once daily COUMADIN 4 MG TABS Two tablets by mouth daily to = 8 mg a day; except 2.5 tablets (10 mg ) on or as directed WARFARIN SODIUM [id number] Russ Bower MD Start: 11-30-2012 take 2 tablets by mo [facility] once daily COUMADIN 4 MG TABS Two tablets by mouth daily to = 8 mg a day WARFARIN SODIUM [id number] Russ Bower MD Start: 03-18-2011 COUMADIN 4 MG TABS Take 1 tablet every evening with a 5mg tab to = 9mg WARFARIN SODIUM [id number] Russ Bower MD Start: 03-18-2011 End: 12-06-2014 COUMADIN 5 MG TABS Take one tablet every evening with a 4mg tablet to = 9mg WARFARIN SODIUM [id number] Russ Bower MD End: 11-21-2022 take 1 tablet by mouth once daily in the evening warfarin 7.5 MG tablet Take 1 tablet by mouth every evening at 6 PM. Take as directed. 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] Onset: 7 Resolved: 9 10-29-2016 Chronic Administrative/social admission (1 source) Finding related to ability to use transport; Translations: [Other problems related to care provider dependency] Episodic Anxiety disorders (4 sources) Generalized anxiety disorder; Translations: [Generalized anxiety disorder] Onset: 4 02-27-2024 Chronic Aortic and peripheral arterial embolism or thrombosis (8 sources) Embolism and thrombosis of arteries of the lower extremities; Translations: [Embolism and thrombosis of arteries of the lower extremities] Onset: 1 03-18-2011 Chronic Cardiac dysrhythmias (20 sources) Paroxysmal ventricular tachycardia; Translations: [Paroxysmal ventricular tachycardia] Onset: 1 03-18-2011 Chronic Cardiac dysrhythmias (2 sources) Bradycardia; Translations: [Bradycardia, unspecified] Onset: 4 05-11-2024 Episodic Chronic obstructive pulmonary disease and bronchiectasis (11 sources) Chronic obstructive lung disease; Translations: [Chronic obstructive pulmonary disease, unspecified] Onset: 3 07-09-2023 Chronic Coagulation and hemorrhagic disorders (20 sources) Heterozygous Factor V Leiden mutation; 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] Onset: 9 01-13-2019 Chronic Complication of device; implant or graft (1 source) Unspecified complication of genitourinary prosthetic device, implant and graft, initial encounter; Translations: [Problem with Ford catheter, initial encounter ([facility])] Onset: 3 Episodic Coronary atherosclerosis and other heart disease (20 sources) Coronary atherosclerosis; Translations: [Disorder of coronary artery] Onset: 1 03-18-2011 Chronic Delirium, dementia, and amnestic and other cognitive disorders (14 sources) Dementia; Translations: [Unspecified dementia without behavioral disturbance] Onset: 4 Chronic Disorders of lipid metabolism (20 sources) Hyperlipidemia; Translations: [Pure hypercholesterolemia] Onset: 2 02-13-2012 Chronic E Codes: Fall (1 source) Unspecified fall, initial encounter; Translations: [Fall, initial encounter] Onset: 3 Episodic Essential hypertension (20 sources) Benign hypertension; Translations: [Hypertensive disorder] Onset: 4 11-25-2013 Chronic Fluid and electrolyte disorders (6 sources) Hyperkalemia; Translations: [Hyperkalemia] Onset: 3 Episodic Gastrointestinal hemorrhage (1 source) Hematochezia; Translations: [Melena] Episodic Genitourinary symptoms and ill-defined conditions (1 source) Encounter for fitting and adjustment of urinary device; Translations: [Encounter for Fodr catheter replacement] Onset: 3 Chronic Genitourinary symptoms and ill-defined conditions (7 sources) Retention of urine; Translations: [Retention of urine, unspecified] Onset: 3 Episodic Hyperplasia of prostate (5 sources) Benign prostatic hypertrophy with outflow obstruction; Translations: [Benign prostatic hyperplasia with lower urinary tract symptoms] Onset: 4 Chronic Immunizations and screening for infectious disease (2 sources) Patient encounter status; Translations: [Encounter for immunization] 07-09-2023 Episodic Nutritional deficiencies (10 sources) Deficiency of macronutrients; Translations: [Unspecified protein-calorie malnutrition] Onset: 4 01-30-2024 Chronic Other aftercare (1 source) Long-term current use of anticoagulant; Translations: [snf (current) use of anticoagulants] Episodic Other aftercare (1 source) 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; Translations: [Anticoagulated] Onset: 3 Episodic Other circulatory disease (1 source) Low blood pressure; Translations: [Hypotension, unspecified] 05-11-2024 Episodic Other circulatory disease (1 source) Hypotension, unspecified; Translations: [Hypotension, unspecified hypotension type] Onset: 4 Episodic Other diseases of kidney and ureters (1 source) Disorder of kidney and/or ureter; Translations: [Other specified disorders of kidney and ureter] 07-20-2024 Chronic Other diseases of kidney and ureters (1 source) Renal mass; Translations: [Other specified disorders of kidney and ureter] 07-20-2024 Chronic Other ear and sense organ disorders (1 source) Lesion of skin of right ear; Translations: [Disorder of right external ear, unspecified] Episodic Other lower respiratory disease (3 sources) Cough; Translations: [Cough in adult patient] Episodic Other nervous system disorders (2 sources) Cerebral venous sinus thrombosis; Translations: [Intracranial and intraspinal phlebitis and thrombophlebitis] Episodic Other nervous system disorders (2 sources) Intracranial and intraspinal phlebitis and thrombophlebitis; Translations: [Intracranial and intraspinal phlebitis and thrombophlebitis] Onset: 3 Episodic Other nutritional; endocrine; and metabolic disorders (3 sources) Weight loss; Translations: [Abnormal weight loss] 03-01-2024 Episodic Other nutritional; endocrine; and metabolic disorders (3 sources) Unintentional weight loss; Translations: [Abnormal weight loss] 05-12-2024 Episodic Other nutritional; endocrine; and metabolic disorders (1 source) Underweight; Translations: [Underweight] 05-13-2024 Episodic Other nutritional; endocrine; and metabolic disorders (2 sources) Abnormal weight loss; Translations: [Unintentional weight loss] Onset: 4 Episodic Other nutritional; endocrine; and metabolic disorders (1 source) Underweight; Translations: [Underweight] Onset: 4 Episodic Other skin disorders (1 source) Multiple actinic keratoses; Translations: [Actinic keratosis] Episodic Other skin disorders (1 source) Seborrheic keratosis; Translations: [Other seborrheic keratosis] Episodic Other skin disorders (2 sources) Skin lesion; Translations: [Disorder of the skin and subcutaneous tissue, unspecified] 05-11-2024 Episodic Other skin disorders (1 source) Disorder of the skin and subcutaneous tissue, unspecified; Translations: [Skin lesion] Onset: 4 Episodic Phlebitis; thrombophlebitis and thromboembolism (20 sources) Deep venous thrombosis; Translations: [Acute embolism and thrombosis of unspecified deep veins of unspecified lower extremity] Onset: 4 11-25-2013 Episodic Residual codes; unclassified (20 sources) Restlessness and agitation; Translations: [Restlessness and agitation] Onset: 9 01-13-2019 Chronic Residual codes; unclassified (2 sources) Tobacco use and exposure - finding; Translations: [Tobacco use] Episodic Skin and subcutaneous tissue infections (3 sources) Cellulitis of skin; Translations: [Cellulitis, unspecified] Onset: 4 05-12-2024 Episodic Spondylosis; intervertebral disc disorders; other back problems (1 source) Backache; Translations: [Dorsalgia, unspecified] 07-09-2023 Episodic Thyroid disorders (20 sources) Thyroid nodule; Translations: [Nontoxic single thyroid nodule] Onset: 3 Chronic Unclassified (3 sources) Long-term drug therapy; Translations: [Other care home (current) drug therapy] Onset: 1 03-18-2011 Unclassified (1 source) Alzheimer's dementia with anxiety, unspecified dementia severity, unspecified timing of dementia onset (HCC); Translations: [Alzheimer's dementia with anxiety, unspecified dementia severity, unspecified timing of dementia onset (HCC)] Onset: 4 Past or Other Problems Problem Classification Problem Date Documented Da te Episodic/Chronic Conditions associated with dizziness or vertigo (7 sources) Dizziness and giddiness; Translations: [Dizziness and giddiness] Onset: 05-01-2017 05-01-2017 Episodic Coronary atherosclerosis and other heart disease (8 sources) Coronary angioplasty status; Translations: [Coronary angioplasty status] Onset: 03-18-2011 03-18-2011 Episodic Fever of unknown origin (20 sources) Pyrexia of unknown origin; Translations: [Fever, unspecified] Onset: 01-06-2019 01-13-2019 Episodic Mood disorders (3 sources) Mood disorders Onset: 12-23-2022 12-23-2022 Other aftercare (5 sources) Other care home (current) drug therapy; Translations: [Other care home (current) drug therapy] Onset: 03-18-2011 03-18-2011 Episodic Other circulatory disease (14 sources) History of intracranial hemorrhage; Translations: [Personal history of other diseases of the circulatory system] Onset: 04-08-2023 Episodic Other gastrointestinal disorders (20 sources) Dysphagia; Translations: [Dysphagia, unspecified] Onset: 01-07-2019 01-13-2019 Episodic Other screening for suspected conditions (not mental disorders or infectious disease) (3 sources) Abnormal result of cardiovascular function study, unspecified; Translations: [Abnormal result of cardiovascular function study, unspecified] Onset: 03-18-2011 03-18-2011 Episodic Other skin disorders (8 sources) Actinic keratosis; Translations: [Actinic keratosis] Onset: 06-05-2015 06-05-2015 Episodic Pleurisy; pneumothorax; pulmonary collapse (8 sources) Pleural effusion; Translations: [Pleural effusion, not elsewhere classified] Onset: 03-18-2011 03-18-2011 Episodic Pulmonary heart disease (13 sources) H/O: pulmonary embolus; Translations: [Abnormal result of cardiovascular function study, unspecified] Onset: 03-18-2011 10-29-2016 Episodic Residual codes; unclassified (8 sources) Family history of stroke; Translations: [Family history of stroke] 05-24-2014 Episodic Residual codes; unclassified (20 sources) Memory impairment; Translations: [Other amnesia] Onset: 02-05-2022 02-05-2022 Episodic Residual codes; unclassified (1 source) Tobacco use; Translations: [Tobacco use] Onset: 01-30-2024 Episodic Results Test Name Value Interpretation Reference Range Facility [facility] 07-20-2024 [facility] Office Visit ([facility] ) JULI SHOOK ([id number]) 1945 M MICHAEL Date Time Provider Department 07/20/24 1:00 PM DARREN MORAN During your visit today, we recorded the following information about you: Temperature Pulse Blood pressure Weight 98.1 degrees 67/minute 143/82 59.1 kg Height 1.79 m Darren Moran MD 07/20/2024 1:42 PM Signed [facility] HISTORY AND PHYSICAL EXAM PATIENT INFO: Juli Shook CHIEF COMPLAINT: renal mass HPI Juli Shook is a 78 year old male with multiple co morbidities including hx of CAD, HTN, COPD, 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 Patient present with his son Patient recently had imaging done for evaluation of worsening confusion, abdominal discomfort and weight lost in outside facility. Per CT chest/abdomen/Pelvis report, it showed a 3 cm right lower pole renal mass with no concerns for metastasis. Patient currently denies flank pain. No gross hematuria, no fever or chills. LABS: Creatinine Date Value Ref Range Status 05/13/2024 1.09 0.73 - 1.22 mg/dL Final 01/30/2024 1.06 0.73 - 1.22 mg/dL Final 04/04/2023 1.09 0.73 - 1.22 mg/dL Final 10/16/2022 1.14 0.73 - 1.22 mg/dL Final No results found for: PSA URINALYSIS: Specific Fouke, Ur Date Value Ref Range Status 05/13/2024 1.019 1.005 - 1.030 Final Glucose, Urine Date Value Ref Range Status 05/13/2024 Negative Negative Final Bilirubin, Urine Date Value Ref Range Status 05/13/2024 Negative Negative Final Ketones, Urine Date Value Ref Range Status 05/13/2024 Negative Negative Final Hemoglobin/Blood,Ur Date Value Ref Range Status 05/13/2024 Negative Negative Final Protein, Urine Date Value Ref Range Status 05/13/2024 Trace (A) Negative Final Urobilinogen, Urine Date Value Ref Range Status 01/06/2019 1.0 0.0 - 1.0 EU/dL Final Nitrites Date Value Ref Range Status 05/13/2024 Negative Negative Final WBC, Urine Date Value Ref Range Status 05/13/2024 0-5 /HPF 0-5 /HPF Final No results found for this basename: uglucpoc,ubilipoc,uketo npoc,usgpoc,uhbpoc,uphp oc,upropoc,uuropoc,unit poc,uwbcpo- c,ucolpoc,uclarpoc IMAGING: [facility] Services [address] [place], [place] [address] CT Chest, Abd, Pel w/Contrast MR#: [id number] Acct: [id number] Name: JULI SHOOK Rep #: [id number] : 1945 M 78 From: Javid gotti MD PCP: Dr. Gio Harman MD Status: REG CL Study: CT Chest, Abd, Pel w/Contrast Date of Exam: Exam# [id number] Ordering [place]: [place] [id number] STUDY: CT CHEST, ABDOMEN T PELVIS WITH CONTRAST REASON FOR EXAM: Male, 78 years old. COPD, WEIGHT LOSS RADIATION DOSAGE (If Supplied By Facility): CTDIvol = ( 9.18 ) mGy, DLP = ( 592.86 ) mGycm TECHNIQUE: Transaxial imaging was performed following intravenous administration of Oral and amp; IV Gastrografin and amp; 75mL Isovue-300. Multiplanar coronal and sagittal images were reformatted. Individualized dose optimization techniques were used for this CT. COMPARISON: Prior study dated: Chest CT performed 10/28/2017 FINDINGS: CHEST Lungs/pleura: The central airways are patent. Moderate centrilobular and paraseptal emphysema. There is no consolidation. No pulmonary nodules are identified. There is no demonstrated pleural abnormality. No pneumothorax. Mediastinum: Normal heart size. No pericardial effusion. Coronary artery calcifications are seen. Normal mediastinum. Normal hilar regions. Normal central and segmental pulmonary arteries. Normal aorta arch and descending thoracic aorta. Chest wall: No axillary lymphadenopathy or chest wall mass. ABDOMEN/PELVIS Liver/gallbladder/bilia ry tree: The liver is normal in size, shape, and attenuation. No biliary ductal dilatation. There is a 6.6 cm mass in segment 5 of the liver which shows early peripheral nodular enhancement and progressive filling in of enhancement, consistent with a hemangioma. Multiple hepatic cysts are also seen. No suspicious mass. Normal gallbladder and extrahepatic biliary system. Pancreas: Normal pancreas. Spleen: Normal in size. No splenic lesion. Adrenal glands: Normal bilateral adrenal glands. Kidneys: Normal size and positioning of the kidneys without hydronephrosis or nephrolithiasis. There are multiple bilateral simple cysts. Additionally there is a mass at the lower pole of the right kidney measuring 3 cm. This has mixed attenuation, but is mostly solid. This is not in the awatl-ev-pusb of prior chest CT . GI tract: Normal visualized stomach. Normal small intestine. No colonic wall thickening or inflammation. (more content not included)... Normal [facility] CNCOon 07-02-2024 CNCO Letter Text Normal [facility] JULI SH[facility] ([id number]) 1945 [facility] Date Time Provider Department 05/17/24 ENDER ROLLINS During your visit today, we recorded the following information about you: Yun Fagan LPN 05/17/2024 8:14 AM Signed ----- Message from Ender Rollins MD sent at 05/17/2024 7:03 AM EDT ----- Wound culture swab did not identify and infection outside of normal skin bacteria. Continue treatment as discussed. Madeline Jimenez MA 05/17/2024 10:08 AM Signed Pt son notified. He is scheduled with [facility] tomorrow and depending what they say they might cancel the gen surgery appt. Madeline Jimenez MA Allergies As of Date: 05/17/2024 Noted Allergy Reaction SULFA (SULFONAMIDE ANTIBIOTICS) 01/14/2017 7 - Swelling HEPARIN 03/18/2011 14 - Other: See Comments Comments: Patient states no reactions. INTEGRILIN (EPTIFIBATIDE) 03/18/2011 14 - Other: See Comments Comments: Patient states no reaction. Date Reviewed: 05/13/2024 Reviewed by: Yun Fagan LPN - Fully Assessed Reason for Visit: Results [95] Prescriptions as of 05/17/2024 - FLUoxetine (PROZAC) 20 mg capsule Take 1 capsule by mouth once daily. - doxycycline (VIBRA-TABS) 100 mg tablet Take 1 tablet by mouth two times a day for 10 days. - donepezil (ARICEPT) 5 mg tablet Take 5 mg by mouth daily at bedtime. - busPIRone (BUSPAR) 5 mg tablet Take 2 tablets by mouth once daily. - amLODIPine (NORVASC) 5 mg tablet Take 1 tablet by mouth once daily. - doxazosin (CARDURA) 1 mg tablet Take 1 tablet by mouth daily at bedtime. - carvedilol (COREG) 12.5 mg tablet Take 1 tablet by mouth two times a day with meals. - lisinopril (ZESTRIL) 40 mg tablet Take 1 tablet by mouth once daily. - atorvastatin (LIPITOR) 40 mg tablet Take 1 tablet by mouth daily at bedtime. - apixaban (ELIQUIS) 2.5 mg tab(s) Take 1 tablet by mouth two times a day. - fluticasone-vilanterol (BREO ELLIPTA) 100-25 mcg/dose inhaler Inhale 1 Inhalation as instructed once daily. - albuterol HFA (VENTOLIN HFA) 90 mcg/actuation inhaler Inhale 2 Puffs as instructed every 4 hours as needed for wheezing/shortness of breath. - Cholecalciferol, Vitamin D3, 125 mcg (5,000 unit) cap Take 5,000 Units by mouth once daily. Problem List As Of Date 05/17/2024 Noted Resolved Left-sided nontraumatic intracerebral hemorrhag*01/05/2019 Coronary artery disease involving [place] grewal*01/05/2019 Hypertension [I10] 01/05/2019 Pure hypercholesterolemia [E78.00] 01/05/2019 Factor 5 Leiden mutation, heterozygous (HCC) [D*01/05/2019 Acute intracranial hemorrhage (HCC) [I62.9] 01/05/2019 01/07/2019 Fever of unknown origin [R50.9] 01/06/2019 Agitation [R45.1] 01/07/2019 Dysphagia [R13.10] 01/07/2019 DVT (deep venous thrombosis) (HCC) [I82.409] Hypercoagulable state (HCC) [D68.59] Memory impairment [R41.3] 02/05/2022 Thyroid nodule [E04.1] 12/20/2022 History of intracranial hemorrhage [Z86.79] 04/08/2023 Paroxysmal ventricular tachycardia (HCC) [I47.2*04/08/2023 Protein-calorie malnutrition, unspecified sever*01/30/2024 Factor V deficiency (HCC) [D68.2] 01/30/2024 Dementia without behavioral disturbance, psycho*01/30/2024 COPD (chronic obstructive pulmonary disease) (H*01/27/2023 Encounter Status:Closed by MADELINE JIMENEZ on 05/17/24 Normal [facility] Bacteria Wnd Culton 05-13-20 Bacteria identified Cx Nom (Wound) ORGANISM ID: 1 Few skin linda GRAM STAIN: No organisms seen No Polymorphonuclear Leukocytes Normal [facility] Comment on above: Performed By: #### 6 462-6 ####[facility] LABCLIA [id number] [facility] [id number] [place] [address] [place] CBC W Auto Differential pane l (Bld)on 05-13-2024 Basophils (Bld) [#/Vol] 0.09 10*3/uL Normal <0.11 [facility] Comment on above: Order Comment: Speci men Type: BLOOD SPECIMENOrdering Facility: [facility] Address: [address] [place] [address] Performed By: #### 5 7021-8, 7 ####[facility] LABCLIA [id number] [place] [address] [place] Basophils/100 WBC (Bld) 1.1 % Normal [facility] Comment on above: Order Comment: Speci men Type: BLOOD SPECIMENOrdering Facility: [facility] Address: [address] [place] [address] Performed By: #### 5 7021-8, 7 ####[facility] LABCLIA [id number] [place] [address] [place] Differential cell count method Nom (Bld) Auto Normal [facility] Comment on above: Order Comment: Speci men Type: BLOOD SPECIMENOrdering Facility: [facility] Address: [address] [place] [address] Performed By: #### 5 7021-8, 7 ####[facility] LABCLIA [id number] [place] [address] [place] Eosinophils (Bld) [#/Vol] 0.21 10*3/uL Normal <0.46 [facility] Comment on above: Order Comment: Speci men Type: BLOOD SPECIMENOrdering Facility: [facility] Address: [address] [place] [address] Performed By: #### 5 7021-8, 7 ####[facility] LABCLIA [id number] [place] [address] [place] Eosinophils/100 WBC (Bld) 2.6 % Normal [facility] Comment on above: Order Comment: Speci men Type: BLOOD SPECIMENOrdering Facility: [facility] Address: [address] [place] [address] Performed By: #### 5 7021-8, 7 ####[facility] LABCLIA [id number] [place] [address] [place] Erythrocyte distribution width (RBC) [Ratio] 14.5 % Normal 11.5-15.0 [facility] Comment on above: Order Comment: Speci men Type: BLOOD SPECIMENOrdering Facility: [facility] Address: [address] [place] [address] Performed By: #### 5 7021-8, 4537-7 ####[facility] LABCLIA [id number] [place] [address] [place] Hematocrit (Bld) [Volume fraction] 47.3 % Normal 39.0-51.0 [facility] Comment on above: Order Comment: Speci men Type: BLOOD SPECIMENOrdering Facility: [facility] Address: [address] [place] [address] Performed By: #### 5 7021-8, 4537-7 ####[facility] LABCLIA [id number] [place] [address] [place] Hemoglobin (Bld) [Mass/Vol] 15.1 g/dL Normal 13.0-17.0 [facility] Comment on above: Order Comment: Speci men Type: BLOOD SPECIMENOrdering Facility: [facility] Address: [address] [place] [address] Performed By: #### 5 7021-8, 4537-7 ####[facility] LABCLIA [id number] [place] [address] [place] Immature granulocytes (Bld) [#/Vol] 10*3/uL Normal <0.10 [facility] Comment on above: Order Comment: Speci men Type: BLOOD SPECIMENOrdering Facility: [facility] Address: [address] [place] [address] Performed By: #### 5 7021-8, 4537-7 ####[facility] LABCLIA [id number] [place] [address] [place] Immature granulocytes/100 WBC (Bld) 0.1 % Normal [facility] Comment on above: Order Comment: Speci men Type: BLOOD SPECIMENOrdering Facility: [facility] Address: [address] [place] [address] Performed By: #### 5 7021-8, 453-7 ####[facility] LABCLIA [id number] [place] [address] [place] Lymphocytes (Bld) [#/Vol] 2.39 10*3/uL Normal 1.00-4.00 [facility] Comment on above: Order Comment: Speci men Type: BLOOD SPECIMENOrdering Facility: [facility] Address: [address] [place] [address] Performed By: #### 5 7021-8, 4536-7 ####[facility] LABCLIA [id number] [place] [address] [place] Lymphocytes/100 WBC (Bld) 29.1 % Normal [facility] Comment on above: Order Comment: Speci men Type: BLOOD SPECIMENOrdering Facility: [facility] Address: [address] [place] [address] Performed By: #### 5 7021-8, 4536-7 ####[facility] LABCLIA [id number] [place] [address] [place] MCH (RBC) [Entitic mass] 29.5 pg Normal 26.0-34.0 [facility] Comment on above: Order Comment: Speci men Type: BLOOD SPECIMENOrdering Facility: [facility] Address: [address] [place] [address] Performed By: #### 5 7021-8, 4536-7 ####[facility] LABCLIA [id number] [place] [address] [place] MCHC (RBC) [Mass/Vol] 31.9 g/dL Normal 30.5-36.0 [facility] Comment on above: Order Comment: Speci men Type: BLOOD SPECIMENOrdering Facility: [facility] Address: [address] [place] [address] Performed By: #### 5 7021-8, 4536-7 ####[facility] LABCLIA [id number] [place] [address] [place] MCV (RBC) [Entitic vol] 92.4 fL Normal 80.0-100.0 [facility] Comment on above: Order Comment: Speci men Type: BLOOD SPECIMENOrdering Facility: [facility] Address: [address] [place] [address] Performed By: #### 5 7021-8, 4536-7 ####[facility] LABCLIA [id number] [place] [address] [place] Monocytes (Bld) [#/Vol] 0.63 10*3/uL Normal <0.87 [facility] Comment on above: Order Comment: Speci men Type: BLOOD SPECIMENOrdering Facility: [facility] Address: [address] [place] [address] Performed By: #### 5 7021-8, 7 ####[facility] LABCLIA [id number] [place] [address] [place] Monocytes/100 WBC (Bld) 7.7 % Normal [facility] Comment on above: Order Comment: Speci men Type: BLOOD SPECIMENOrdering Facility: [facility] Address: [address] [place] [address] Performed By: #### 5 7021-8, 7 ####[facility] LABCLIA [id number] [place] [address] [place] Neutrophils (Bld) [#/Vol] 4.89 10*3/uL Normal 1.45-7.50 [facility] Comment on above: Order Comment: Speci men Type: BLOOD SPECIMENOrdering Facility: [facility] Address: [address] [place] [address] Performed By: #### 5 7021-8, 4536-7 ####[facility] LABCLIA [id number] [place] [address] [place] Neutrophils/100 WBC (Bld) 59.4 % Normal [facility] Comment on above: Order Comment: Speci men Type: BLOOD SPECIMENOrdering Facility: [facility] Address: [address] [place] [address] Performed By: #### 5 7021-8, 4537-7 ####[facility] LABIA [id number] [place] [address] [place] Nucleated RBC (Bld) [#/Vol] 10*3/uL Normal <0.01 [facility] Comment on above: Order Comment: Speci men Type: BLOOD SPECIMENOrdering Facility: [facility] Address: [address] [place] [address] Performed By: #### 5 7021-8, 4537-7 ####[facility] [id number] [place] [address] [place] Nucleated RBC/100 WBC (Bld) [Ratio] 0.0 /100 WBC Normal [facility] Comment on above: Order Comment: Speci men Type: BLOOD SPECIMENOrdering Facility: [facility] Address: [address] [place] [address] Performed By: #### 5 7021-8, 4537-7 ####[facility] LABIA [id number] [place] [address] [place] Platelet mean volume (Bld) [Entitic vol] 11.6 fL Normal 9.0-12.7 [facility] Comment on above: Order Comment: Speci men Type: BLOOD SPECIMENOrdering Facility: [facility] Address: [address] [place] [address] Performed By: #### 5 7021-8, 4537-7 ####[facility] LABIA [id number] [place] [address] [place] Platelets (Bld) [#/Vol] 323 10*3/uL Normal 150-400 [facility] Comment on above: Order Comment: Speci men Type: BLOOD SPECIMENOrdering Facility: [facility] Address: [address] [place] [address] Performed By: #### 5 7021-8, 4537-7 ####[facility] LABCLIA [id number] [place] [address] [place] RBC (Bld) [#/Vol] 5.12 10*6/uL Normal 4.20-6.00 [facility] Comment on above: Order Comment: Speci men Type: BLOOD SPECIMENOrdering Facility: [facility] Address: [address] [place] [address] Performed By: #### 5 7021-8, 4537-7 ####[facility] LABCLIA [id number] [place] [address] [place] WBC (Bld) [#/Vol] 8.22 10*3/uL Normal 3.70-11.00 [facility] Comment on above: Order Comment: Speci men Type: BLOOD SPECIMENOrdering Facility: [facility] Address: [address] [place] [address] Performed By: #### 5 7021-8, 4537-7 ####[facility] LABCLIA [id number] [place] [address] [place] CNOVon 05-13-2024 CNOV Office Visit (FAMPWS ) JULI SHOOK ([id number]) 1945 [facility] Date Time Provider Department 05/13/24 11:20 AM ENDER ROLLINS FAMPWS During your visit today, we recorded the following information about you: Temperature Pulse Respiration Blood pressure 97.3 degrees 51/minute 16/minute 118/66 Weight 55.7 kg Ender Rollins MD 05/13/2024 12:17 PM Signed Chief Complaint Patient presents with: Recheck: wound HPI Juli Shook is a 78 year old male who presents here today for to recheck cellulitis and skin lesion on left upper back. Recheck weight, BP and HR as well. Accompanied today by his son Jayjay who is providing history for patient with Alzheimer's. Son is first alternate on his healthcare POA. Since last OV, patient has been taking abx without side effects. They have not checked his wound or changed his dressing, so they are unsure if it is better or worse. Denies fever/chills, nausea, vomiting, diarrhea since starting abx. He has not yet called to schedule OV for general surgery for biopsy vs excision. BP improved today. Taking all medications as prescribed. They are continuing to encourage patient to eat 3 meals per day. Labs ordered at OV 2 days ago were drawn today and are still pending. Weight stable in the last 2 days. Requesting refill on his Prozac. Past medical history, appointments, medications, allergies reviewed. Previous Medical History PAST MEDICAL HISTORY Diagnosis Date Alzheimer's dementia ([facility]) Colon polyps Dr. Avalos COPD (chronic obstructive pulmonary disease) ([facility]) 01/27/2023 moderately severe Coronary artery disease Dr. Bower DVT (deep venous thrombosis) ([facility]) multiple Dyslipidemia Factor V Leiden (HCC) def Generalized anxiety disorder Hypercoagulable state ([facility]) possible factor V homozygous Hypertension Intracranial aneurysm Intracranial hemorrhage ([facility]) 2015, 12/2018 Dr. Daniel Memory impairment Dr. Leong Pulmonary embolism ([facility]) S/P IVC filter 2016 Thyroid nodule 12/20/2022 US at [facility] showed 2.7 cm nodule on right lobe Previous Surgical History PAST SURGICAL HISTORY Procedure Laterality Date COLONOSCOPY Last done age 69 or 70 with polyps. told he would not need follow up IVC FILTER PLACEMENT/REMOVAL 2016 STENT 1999, 2001 Cardiac x2 THORACENTESIS 2003 TONSILLECTOMY AND ADENOIDECTOMY HX childhood Family History FAMILY HISTORY Problem Relation Age of Onset Hypertension Father other (hypercoagulable state) Father other (hypercoagulable state) Other other (hypercoagulable state) Grandchild Thyroid Daughter other (factor v) Son Patient Allergies ALLERGIES Allergen Reactions Sulfa (Sulfonamide * Swelling Heparin Other: See Comments Patient states no reactions. Integrilin [Eptifib* Other: See Comments Patient states no reaction. Current Medications Current Outpatient Medications on File Prior to Visit Medication Sig doxycycline (VIBRA-TABS) 100 mg tablet Take 1 tablet by mouth two times a day for 10 days. donepezil (ARICEPT) 5 mg tablet Take 5 mg by mouth daily at bedtime. FLUoxetine (PROZAC) 20 mg capsule Take 1 capsule by mouth once daily. busPIRone (BUSPAR) 5 mg tablet Take 2 tablets by mouth once daily. amLODIPine (NORVASC) 5 mg tablet Take 1 tablet by mouth once daily. doxazosin (CARDURA) 1 mg tablet Take 1 tablet by mouth daily at bedtime. carvedilol (COREG) 12.5 mg tablet Take 1 tablet by mouth two times a day with meals. lisinopril (ZESTRIL) 40 mg tablet Take 1 tablet by mouth once daily. atorvastatin (LIPITOR) 40 mg tablet Take 1 tablet by mouth daily at bedtime. apixaban (ELIQUIS) 2.5 mg tab(s) Take 1 tablet by mouth two times a day. fluticasone-vilanterol (BREO ELLIPTA) 100-25 mcg/dose inhaler Inhale 1 Inhalation as instructed once daily. albuterol HFA (VENTOLIN HFA) 90 mcg/actuation inhaler Inhale 2 Puffs as instructed every 4 hours as needed for wheezing/shortness of breath. Cholecalciferol, Vitamin D3, 125 mcg (5,000 unit) cap Take 5,000 Units by mouth once daily. No current facility-administered medications on file prior to visit. Social History Social History Tobacco Use Smoking status: Every Day Years: 58 Types: Cigarettes Last attempt to quit: 02/03/2019 Years since quittin.2 Smokeless tobacco: Never Vaping Use Vaping Use: Never used Substance Use Topics Alcohol use: Yes Alcohol/week: 7.0 standard drinks of alcohol Types: 7 Cans of Beer (12oz) per week Drug use: Never Review of Symptoms REVIEW OF SYSTEMS GENERAL: No weight loss, malaise or fevers RESPIRATORY: Negative for cough, hemoptysis, wheezing, COPD, dyspnea or shortness of breath CARDIOVASCULAR: Negative for chest pain, leg swelling, hypertension, CHF or palpitations GI: No nausea, vomiting, or diarrhea SKIN: See HPI EXAM: BP 118/66 Pulse (!) 51 (more content not included)... Normal [facility] CRP SerPl-mCncon 05-13-2024 CRP [Mass/Vol] 0.6 mg/dL Normal <0.9 [facility] Comment on above: Order Comment: Speci men Type: BLOOD SPECIMENOrdering Facility: [facility] Address: [address] [place] [address] Performed By: #### 2 43201-01, 1988-02, 3015-12 ####[facility] LABCLIA [id number] [place] [address] [place] Comprehensive metabolic 2000 panelon 05-13-2024 Albumin [Mass/Vol] 4.1 g/dL Normal 3.9-4.9 [facility] Comment on above: Order Comment: Speci men Type: BLOOD SPECIMENOrdering Facility: [facility] Address: [address] [place], [place] [address] Performed By: #### 2 432-8, 1988-02, 3015-12 ####[facility] LABIA [id number] [place] [address] [place] ALP [Catalytic activity/Vol] 108 U/L Normal 38-113 [facility] Comment on above: Order Comment: Speci men Type: BLOOD SPECIMENOrdering Facility: [facility] Address: [address] [place], [place] [address] Performed By: #### 2 8, 1988-02, 3015-12 ####[facility] LABIA [id number] [place] [id number] [place] ALT [Catalytic activity/Vol] 20 U/L Normal 10-54 [facility] Comment on above: Order Comment: Speci men Type: BLOOD SPECIMENOrdering Facility: [facility] Address: [address] [place] [address] Performed By: #### 2 432, 3015-12 ####[facility]CLIA [id number] [facility] [address] [address] [place] Anion gap [Moles/Vol] 10 mmol/L Normal 8-15 [facility] Comment on above: Order Comment: Speci men Type: BLOOD SPECIMENOrdering Facility: [facility] Address: [address] [place] [address] Performed By: #### 2 8, 1988-02, 3015-12 ####[facility] LABCLIA [id number] [facility] [address] [address] [place] AST [Catalytic activity/Vol] 36 U/L Normal 14-40 [facility] Comment on above: Order Comment: Speci men Type: BLOOD SPECIMENOrdering Facility: [facility] Address: [address] [place] [address] Performed By: #### 2 8, 1988-02, 3015-12 ####[facility] LABCLIA [id number] [facility] [place] [id number] [place] Bilirubin [Mass/Vol] 0.5 mg/dL Normal 0.2-1.3 [facility] Comment on above: Order Comment: Speci men Type: BLOOD SPECIMENOrdering Facility: [facility] Address: [address] [place], [place] [address] Performed By: #### 2 8, 1988-02, 3015-12 ####[facility] LABCLIA [id number] [facility] [address] [address] [place] Calcium [Mass/Vol] 9.4 mg/dL Normal 8.5-10.2 [facility] Comment on above: Order Comment: Speci men Type: BLOOD SPECIMENOrdering Facility: [facility] Address: [address] [place] [address] Performed By: #### 2 4328, 1988-02, 3015-12 ####[facility] LABCLIA [id number] [place] [id number] [place] Chloride [Moles/Vol] 104 mmol/L Normal 98-107 [facility] Comment on above: Order Comment: Speci men Type: BLOOD SPECIMENOrdering Facility: [facility] Address: [address] [place] [address] Performed By: #### 2 4323-8, 1988-02, 3015-12 ####[facility] LABIA [id number] [place] [address] [place] CO2 [Moles/Vol] 28 mmol/L Normal 22-30 [facility] Comment on above: Order Comment: Speci men Type: BLOOD SPECIMENOrdering Facility: [facility] Address: [address] [place] [address] Performed By: #### 2 4323-8, 1988-02, 3015-12 ####[facility] LABIA [id number] [place] [address] [place] Creatinine [Mass/Vol] 1.09 mg/dL Normal 0.73-1.22 [facility] Comment on above: Order Comment: Speci men Type: BLOOD SPECIMENOrdering Facility: [facility] Address: [address] [place] [address] Performed By: #### 2 4323-8, 1988-02, 3015-12 ####[facility] [id number] [place] [address] [place] Creatinine and Glomerular filtration rate.predicted panel (S/P/Bld) 69 mL/min/1.73m??? Normal >=60 [facility] Comment on above: Order Comment: Speci men Type: BLOOD SPECIMENOrdering Facility: [facility] Address: [address] [place] [address] Result Comment: [place] mated Glomerular Filtration Rate (eGFR) is calculated using the 2020 CKD-EPI creatinine equation. This equation utilizes serum creatinine, sex, and age as parameters. The creatinine assay has traceable calibration to isotope dilution-mass spectrometry. Refer to KDIGO guidelines for clinical interpretation. In patients with unstable renal function, e.g. those with acute kidney injury, the eGFR may not accurately reflect actual GFR. Performed By: #### 2 4323-05, 3015-12 ####[facility] LABCLIA [id number] [address] [address] [place] Glucose [Mass/Vol] 94 mg/dL Normal 74-99 [facility] Comment on above: Order Comment: Arnulfo dickens Type: BLOOD SPECIMENOrdering Facility: [facility] Address: [address] [place] [address] Result Comment: The [place] Diabetes Association (ADA) provides guidance for cutoff values for fasting glucose and random glucose. The ADA defines fasting as no caloric intake for at least 8 hours. Fasting plasma glucose results between 100 to 125 mg/dL indicate increased risk for diabetes (prediabetes). Fasting plasma glucose results greater than or equal to 126 mg/dL meet the criteria for diagnosis of diabetes. In the absence of unequivocal hyperglycemia, results should be confirmed by repeat testing. In a patient with classic symptoms of hyperglycemia or hyperglycemic crisis, random plasma glucose results greater than or equal to 200 mg/dL meet the criteria for diagnosis of diabetes. Reference: Standards of Medical Care in Diabetes 2016, [place] Diabetes Association. Diabetes Care. 2016.39(Suppl 1). Performed By: #### 2 4323-05, 1988-02, 3015-12 ####[facility] LABCLIA [id number] [address] [address] [place] Potassium [Moles/Vol] 4.5 mmol/L Normal 3.7-5.1 [facility] Comment on above: Order Comment: Arnulfo dickens Type: BLOOD SPECIMENOrdering Facility: [facility] Address: [address] [place] [address] Performed By: #### 2 4323-05, 3015-12 ####[facility] LABCLIA [id number] [address] [address] [place] Protein [Mass/Vol] 6.7 g/dL Normal 6.3-8.0 [facility] Comment on above: Order Comment: Speci men Type: BLOOD SPECIMENOrdering Facility: [facility] Address: [address] [place], [place] [address] [id number] Performed By: #### 2 4323-8, 1988-02, 3015-12 ####[facility] LABCLIA [id number] [place] [id number] [place] Sodium [Moles/Vol] 142 mmol/L Normal 136-144 [facility] Comment on above: Order Comment: Speci men Type: BLOOD SPECIMENOrdering Facility: [facility] Address: [address] [place] [address] Performed By: #### 2 4323-8, 1988-02, 3015-12 ####[facility] LABCLIA [id number] [place] [address] [place] Urea nitrogen [Mass/Vol] 21 mg/dL Normal 9-24 [facility] Comment on above: Order Comment: Speci men Type: BLOOD SPECIMENOrdering Facility: [facility] Address: [address] [place] [address] Performed By: #### 2 4323-8, 1988-02, 3015-12 ####[facility] LABIA [id number] [place] [id number] [place] ESR Westergren method (Bld) [Velocity]on 05-13-2024 ESR (Bld) [Velocity] 2 mm/h Normal 0-15 [facility] Comment on above: Order Comment: Speci men Type: BLOOD SPECIMENOrdering Facility: [facility] Address: [address] [place] [address] [place] [address] Performed By: #### 5 7021-8, 4537-7 ####[facility] LABCLIA [id number] [place] [id number] [place] TSH SerPl-aCncon 05-13-2024 TSH Qn 2.470 m[IU]/L Normal 0.270-4.200 [facility] Comment on above: Order Comment: Speci men Type: BLOOD SPECIMENOrdering Facility: [facility] Address: [address] [place] [address] Performed By: #### 2 4323-8, 1987-, 3016-3 ####[facility] LABCLIA [id number] [place] [address] [place] Urinalysis complete panel (U )on 05-13-2024 Bacteria LM.HPF (Urine sed) [#/Area] Negative Normal Negative [facility] Comment on above: Order Comment: Speci men Type: URINE SPECIMENOrdering Facility: [facility] Address: [address] [place] [address] Performed By: #### 2 4356-8 ####[facility] LABCLIA [id number] [place] [address] [place] Bilirubin Ql (U) Negative Normal Negative [facility] Comment on above: Order Comment: Speci men Type: URINE SPECIMENOrdering Facility: [facility] Address: [address] [place] [address] Performed By: #### 2 4356-8 ####[facility] LABCLIA [id number] [place] [address] [place] Clarity (Unsp spec) Clear Normal Clear [facility] Comment on above: Order Comment: Speci men Type: URINE SPECIMENOrdering Facility: [facility] Address: [address] [place] [address] Performed By: #### 2 4356-8 ####[facility] LABCLIA [id number] [place] [address] [place] Color (U) Yellow Normal Yellow [facility] Comment on above: Order Comment: Speci men Type: URINE SPECIMENOrdering Facility: [facility] Address: [address] [place] [address] Performed By: #### 2 4356-8 ####[facility] LABCLIA [id number] [place] [address] [place] Epithelial cells LM.HPF (Urine sed) [#/Area] None Seen Normal [facility] Comment on above: Order Comment: Speci men Type: URINE SPECIMENOrdering Facility: [facility] Address: [address] [place] [address] Performed By: #### 2 4356-8 ####[facility] LABCLIA [id number] [place] [address] [place] Glucose Test strip (U) [Mass/Vol] Negative Normal Negative [facility] Comment on above: Order Comment: Speci men Type: URINE SPECIMENOrdering Facility: [facility] Address: [address] [place] [address] Performed By: #### 2 4356-8 ####[facility] LABCLIA [id number] [place] [address] [place] Hemoglobin Ql (U) Negative Normal Negative [facility] Comment on above: Order Comment: Speci men Type: URINE SPECIMENOrdering Facility: [facility] Address: [address] [place] [address] Performed By: #### 2 4356-8 ####[facility] LABCLIA [id number] [place] [address] [place] Hyaline casts (Urine sed) [#/Area] 0 /[LPF] Normal 0 /LPF [facility] Comment on above: Order Comment: Speci men Type: URINE SPECIMENOrdering Facility: [facility] Address: [address] [place] [address] Performed By: #### 2 4356-8 ####[facility] LABCLIA [id number] [place] [address] [place] Ketones Ql (U) Negative Normal Negative [facility] Comment on above: Order Comment: Speci men Type: URINE SPECIMENOrdering Facility: [facility] Address: [address] [place] [address] Performed By: #### 2 4356-8 ####[facility] LABCLIA [id number] [place] [address] [place] Leukocyte esterase Test strip Ql (U) 1+ Abnormal Negative [facility] Comment on above: Order Comment: Speci men Type: URINE SPECIMENOrdering Facility: [facility] Address: [address] [place] [address] Performed By: #### 2 4356-8 ####[facility] LABIA [id number] [place] [address] [place] Nitrite Ql (U) Negative Normal Negative [facility] Comment on above: Order Comment: Speci men Type: URINE SPECIMENOrdering Facility: [facility] Address: [address] [place] [address] Performed By: #### 2 4356-8 ####[facility] LABCLIA [id number] [place] [address] [place] pH (U) 6.5 [pH] Normal <8.5 [facility] Comment on above: Order Comment: Speci men Type: URINE SPECIMENOrdering Facility: [facility] Address: [address] [place] [address] Performed By: #### 2 4356-8 ####[facility] LABCLIA [id number] [place] [address] [place] Protein (U) [Mass/Vol] Trace Abnormal Negative [facility] Comment on above: Order Comment: Speci men Type: URINE SPECIMENOrdering Facility: [facility] Address: [address] [place] [address] Performed By: #### 2 4356-8 ####[facility] LABCLIA [id number] [place] [address] [place] RBC LM.HPF (Urine sed) [#/Area] 0-2 /HPF Normal 0-2 /HPF [facility] Comment on above: Order Comment: Speci men Type: URINE SPECIMENOrdering Facility: [facility] Address: [address] [place] [address] Performed By: #### 2 4356-8 ####[facility] [id number] [place] [address] [place] Specific gravity (U) [Rel density] 1.019 Normal 1.005-1.030 [facility] Comment on above: Order Comment: Speci men Type: URINE SPECIMENOrdering Facility: [facility] Address: [address] [place] [address] Performed By: #### 2 4356-8 ####[facility] [id number] [address] [place] Urobilinogen Ql (U) 1.0 EU/dL Normal 0.2-1.0 EU/dL [facility] Comment on above: Order Comment: Speci men Type: URINE SPECIMENOrdering Facility: [facility] Address: [address] [place] [address] Performed By: #### 2 4356-8 ####[facility] [id number] [place] [address] [place] WBC LM.HPF (Urine sed) [#/Area] 0-5 /HPF Normal 0-5 /HPF [facility] Comment on above: Order Comment: Speci men Type: URINE SPECIMENOrdering Facility: [facility] Address: [address] [place] [address] Performed By: #### 2 4356-8 ####[facility] [id number] [address] [place] CNOVon 05-11-2024 CNOV Office Visit (FAMPWS ) JULI SHOOK ([id number]) [address] [facility] Date Time Provider Department 05/11/24 7:00 PM ENDER ROLLINS During your visit today, we recorded the following information about you: Temperature Pulse Respiration Blood pressure 97.5 degrees 50/minute 16/minute 96/58 Weight 55.6 kg Ender Rollins MD 05/12/2024 7:14 AM Signed Chief Complaint Patient presents with: Weight Problem: Continued weight loss- patient typically doesn't eat unless someone puts food in front of him. Diarrhea: Patient reports diarrhea to family and dr Leong recently put patient on aricept approx 1 month Derm Problem: Areas to back-sores. Derm Referral? HPI Juli Shook is a 78 year old male who presents here today for Above Complaints. Accompanied today by his son aJyjay who is providing history for patient with Alzheimer's. Patient's weight is down another 4 lbs since last OV about 6 weeks ago. Patient has been eating 1-2 meals per day. Son states that if you put a plate of food in front of him he will clear the plate. Will not make his own food. Alzheimer's symptoms seem to be worsening despite taking Aricept. Patient still living at home with his . Children come to check on him every 1-2 days. does make 1-2 meals most days of the week and helps with some ADLs. Children will bring food or make something they have there for him. Also notes that the patient has been having 1 episode of loose stools per day since starting the Aricept. BP low today. Does not have a way to check BP at home. Denies abdominal pain, fever/chills, hematochezia, melena, constipation, lightheadedness, dizziness, nausea, vomiting. Son notes that he has has a spot on his left upper back which is irritated. Present for about 2 weeks. Raised lesion that bleeds if he bumps it. Not treating with anything OTC. Seems to be getting worse. Past medical history, appointments, medications, allergies reviewed. Previous Medical History PAST MEDICAL HISTORY Diagnosis Date Alzheimer's dementia (HCC) Colon polyps Dr. Avalos COPD (chronic obstructive pulmonary disease) (HCC) 01/27/2023 moderately severe Coronary artery disease Dr. Bower DVT (deep venous thrombosis) (HCC) multiple Dyslipidemia Factor V Leiden (HCC) def Generalized anxiety disorder Hypercoagulable state (HCC) possible factor V homozygous Hypertension Intracranial aneurysm Intracranial hemorrhage (HCC) 2015, 12/2018 Dr. Daniel Memory impairment Dr. Leong Pulmonary embolism ([facility]) S/P IVC filter 2016 Thyroid nodule 12/20/2022 US at [facility] showed 2.7 cm nodule on right lobe Previous Surgical History PAST SURGICAL HISTORY Procedure Laterality Date COLONOSCOPY Last done age 69 or 70 with polyps. told he would not need follow up IVC FILTER PLACEMENT/REMOVAL 2016 STENT 1999, 2001 Cardiac x2 THORACENTESIS 2003 TONSILLECTOMY AND ADENOIDECTOMY HX childhood Family History FAMILY HISTORY Problem Relation Age of Onset Hypertension Father other (hypercoagulable state) Father other (hypercoagulable state) Other other (hypercoagulable state) Grandchild Thyroid Daughter other (factor v) Son Patient Allergies ALLERGIES Allergen Reactions Sulfa (Sulfonamide * Swelling Heparin Other: See Comments Patient states no reactions. Integrilin [Eptifib* Other: See Comments Patient states no reaction. Current Medications Current Outpatient Medications on File Prior to Visit Medication Sig donepezil (ARICEPT) 5 mg tablet Take 5 mg by mouth daily at bedtime. FLUoxetine (PROZAC) 20 mg capsule Take 1 capsule by mouth once daily. busPIRone (BUSPAR) 5 mg tablet Take 2 tablets by mouth once daily. amLODIPine (NORVASC) 5 mg tablet Take 1 tablet by mouth once daily. doxazosin (CARDURA) 1 mg tablet Take 1 tablet by mouth daily at bedtime. carvedilol (COREG) 12.5 mg tablet Take 1 tablet by mouth two times a day with meals. lisinopril (ZESTRIL) 40 mg tablet Take 1 tablet by mouth once daily. atorvastatin (LIPITOR) 40 mg tablet Take 1 tablet by mouth daily at bedtime. apixaban (ELIQUIS) 2.5 mg tab(s) Take 1 tablet by mouth two times a day. fluticasone-vilanterol (BREO ELLIPTA) 100-25 mcg/dose inhaler Inhale 1 Inhalation as instructed once daily. albuterol HFA (VENTOLIN HFA) 90 mcg/actuation inhaler Inhale 2 Puffs as instructed every 4 hours as needed for wheezing/shortness of breath. Cholecalciferol, Vitamin D3, 125 mcg (5,000 unit) cap Take 5,000 Units by mouth once daily. No current facility-administered medications on file prior to visit. Social History Social History Tobacco Use Smoking status: Every Day Years: 60 Types: Cigarettes Last attempt to quit: 02/03/2019 Years since quittin.2 Smokeless tobacco: Never Vaping Use Vaping Use: Never used Substance Use Topics Alcohol (more content not included)... Normal [facility] XR CHEST 2V FRONTAL/LATon XR CHEST 2V FRONTAL/LAT * * *Final Report* * * DATE OF EXAM: May 11 2024 7:48PM WOX 5291 - XR CHEST 2V FRONTAL/LAT / PROCEDURE REASON: Unintentional weight loss * * * * Physician Interpretation * * * * EXAMINATION: XR CHEST 2V FRONTAL/LAT CLINICAL HISTORY: Unintentional weight loss Comparison: Chest x-ray 03/30/2024 RESULT: Lines, tubes, and devices: None Lungs and pleura: No consolidation or edema. No pleural effusion or pneumothorax. The lungs are hyperinflated. Cardiomediastinal silhouette: Normal cardiomediastinal silhouette. Coronary artery stent. Bones/soft tissues: No acute findings. IMPRESSION: No acute radiographic abnormality. Electronic Tech: SIS Transcribe Date/Time: May 11 2024 8:42P Dictated by : DIANNA MEDELLIN MD This examination was interpreted and the report reviewed and electronically signed by: DIANNA MEDELLIN MD on May 11 2024 8:47PM EST [id number] Normal [facility] XR Chest PA and Lateralon IMPRESSION: No acute radiographic abnormality. Electronic Tech: PSC Transcribe Date/Time: May 11 2024 8:42P Dictated by : DIANNA MEDELLIN MD This examination was interpreted and the report reviewed and electronically signed by: DIANNA MEDELLIN MD on May 11 2024 8:47PM EST DIVISION OF RADIOLOGY * * *Final Report* * * DATE OF EXAM: May 11 2024 7:48PM WOX [id number] - XR CHEST 2V FRONTAL/LAT / PROCEDURE REASON: Unintentional weight loss * * * * Physician Interpretation * * * * EXAMINATION: XR CHEST 2V FRONTAL/LAT CLINICAL HISTORY: Unintentional weight loss Comparison: Chest x-ray 03/30/2024 RESULT: Lines, tubes, and devices: None Lungs and pleura: No consolidation or edema. No pleural effusion or pneumothorax. The lungs are hyperinflated. Cardiomediastinal silhouette: Normal cardiomediastinal silhouette. Coronary artery stent. Bones/soft tissues: No acute findings. DIVISION OF RADIOLOGY Provider, [facility] - 05/11/2024 * * *Final Report* * * DATE OF EXAM: May 11 2024 7:48PM WOX [id number] - XR CHEST 2V FRONTAL/LAT / PROCEDURE REASON: Unintentional weight loss * * * * Physician Interpretation * * * * EXAMINATION: XR CHEST 2V FRONTAL/LAT CLINICAL HISTORY: Unintentional weight loss Comparison: Chest x-ray 03/30/2024 RESULT: Lines, tubes, and devices: None Lungs and pleura: No consolidation or edema. No pleural effusion or pneumothorax. The lungs are hyperinflated. Cardiomediastinal silhouette: Normal cardiomediastinal silhouette. Coronary artery stent. Bones/soft tissues: No acute findings. IMPRESSION IMPRESSION: No acute radiographic abnormality. Electronic Tech: [facility] Transcribe Date/Time: May 11 2024 8:42P Dictated by : DIANNA MEDELLIN MD This examination was interpreted and the report reviewed and electronically signed by: DIANNA MEDELLIN MD on May 11 2024 8:47PM EST [facility] Radiology Study observation (narrative) [facility] XR Chest PA and LateralOrder ed By: Ccf Provider on 05-11-2024 [facility] XR Chest PA and Lateralon IMPRESSION: Stable exam with bilateral pulmonary emphysema and no acute radiographic abnormality. Electronic Tech: [facility] Transcribe Date/Time: Apr 03 2024 8:15A Dictated by : OZZIE DASILVA MD This examination was interpreted and the report reviewed and electronically signed by: OZZIE DASILVA MD on Apr 03 2024 8:17AM [facility] DIVISION OF RADIOLOGY * * *Final Report* * * DATE OF EXAM: Mar 30 2024 11:56AM WOX [id number] - XR CHEST 2V FRONTAL/LAT / PROCEDURE REASON: Weight loss * * * * Physician Interpretation * * * * EXAMINATION: CHEST RADIOGRAPH (2 VIEW FRONTAL & LATERAL) CLINICAL HISTORY: Weight loss MQ: XC2_6 EXAM DATE/TIME: 03/30/2024 11:56 AM COMPARISON: 04/04/2023. RESULT: Lines, tubes, and devices: None. Lungs and pleura: Again identified is bilateral pulmonary emphysema. There is a small band of linear fibrosis in the right lung base. No definite infiltrates. No consolidation. No lung mass. No pleural effusion. No pneumothorax. Cardiomediastinal silhouette: Normal cardiomediastinal silhouette. Bones and soft tissues: Unremarkable. DIVISION OF RADIOLOGY Provider, [facility] - 04/03/2024 * * *Final Report* * * DATE OF EXAM: Mar 30 2024 11:56AM WOX 5291 - XR CHEST 2V FRONTAL/LAT / PROCEDURE REASON: Weight loss * * * * Physician Interpretation * * * * EXAMINATION: CHEST RADIOGRAPH (2 VIEW FRONTAL & LATERAL) CLINICAL HISTORY: Weight loss MQ: XC2_6 EXAM DATE/TIME: 03/30/2024 11:56 AM COMPARISON: 04/04/2023. RESULT: Lines, tubes, and devices: None. Lungs and pleura: Again identified is bilateral pulmonary emphysema. There is a small band of linear fibrosis in the right lung base. No definite infiltrates. No consolidation. No lung mass. No pleural effusion. No pneumothorax. Cardiomediastinal silhouette: Normal cardiomediastinal silhouette. Bones and soft tissues: Unremarkable. IMPRESSION IMPRESSION: Stable exam with bilateral pulmonary emphysema and no acute radiographic abnormality. Electronic Tech: PSCB Transcribe Date/Time: Apr 03 2024 8:15A Dictated by : OZZIE DASILVA MD This examination was interpreted and the report reviewed and electronically signed by: OZZIE DASILVA MD on Apr 03 2024 8:17AM EST [facility] XR Chest PA and LateralOrder ed By: Cc Provider on 04-03-2024 [facility]ULI [facility] ([id number]) [address] [facility] Date Time Provider Department 03/31/24 MARCELLA ROSSI During your visit today, we recorded the following information about you: Marcella Rossi, RUG SAMPLE BEVELER 03/31/2024 8:57 AM Signed May spoke with patient son Jayjay and he reports would appreciate any resources for needs such as home delivered meals, help at home with cleaning. Jayjay notes that patient lives in [facility]. May has [facility] Senior Resource Guide. May will mail guide out to Jayjay and attach MAY direct number if family needs assistance with linking up to community resources for patient. Jayjay's address [address] [place] [address]. Allergies As of Date: 03/31/2024 Noted Allergy Reaction SULFA (SULFONAMIDE ANTIBIOTICS) 01/14/2017 7 - Swelling HEPARIN 03/18/2011 14 - Other: See Comments Comments: Patient states no reactions. INTEGRILIN (EPTIFIBATIDE) 03/18/2011 14 - Other: See Comments Comments: Patient states no reaction. Date Reviewed: 03/30/2024 Reviewed by: Yun Fagan LPN - Fully Assessed Prescriptions as of 03/31/2024 - donepezil (ARICEPT) 5 mg tablet Take 5 mg by mouth daily at bedtime. - FLUoxetine (PROZAC) 20 mg capsule Take 1 capsule by mouth once daily. - busPIRone (BUSPAR) 5 mg tablet Take 2 tablets by mouth once daily. - amLODIPine (NORVASC) 5 mg tablet Take 1 tablet by mouth once daily. - doxazosin (CARDURA) 1 mg tablet Take 1 tablet by mouth daily at bedtime. - carvedilol (COREG) 12.5 mg tablet Take 1 tablet by mouth two times a day with meals. - lisinopril (ZESTRIL) 40 mg tablet Take 1 tablet by mouth once daily. - atorvastatin (LIPITOR) 40 mg tablet Take 1 tablet by mouth daily at bedtime. - apixaban (ELIQUIS) 2.5 mg tab(s) Take 1 tablet by mouth two times a day. - fluticasone-vilanterol (BREO ELLIPTA) 100-25 mcg/dose inhaler Inhale 1 Inhalation as instructed once daily. - albuterol HFA (VENTOLIN HFA) 90 mcg/actuation inhaler Inhale 2 Puffs as instructed every 4 hours as needed for wheezing/shortness of breath. - Cholecalciferol, Vitamin D3, 125 mcg (5,000 unit) cap Take 5,000 Units by mouth once daily. Problem List As Of Date 03/31/2024 Noted Resolved Left-sided nontraumatic intracerebral hemorrhag*01/05/2019 Coronary artery disease involving [place] grew[place]*01/05/2019 Hypertension [I10] 01/05/2019 Pure hypercholesterolemia [E78.00] 01/05/2019 Factor 5 Leiden mutation, heterozygous (HCC) [D*01/05/2019 Acute intracranial hemorrhage (HCC) [I62.9] 01/05/2019 01/07/2019 Fever of unknown origin [R50.9] 01/06/2019 Agitation [R45.1] 01/07/2019 Dysphagia [R13.10] 01/07/2019 DVT (deep venous thrombosis) (HCC) [I82.409] Hypercoagulable state (HCC) [D68.59] Memory impairment [R41.3] 02/05/2022 Thyroid nodule [E04.1] 12/20/2022 History of intracranial hemorrhage [Z86.79] 04/08/2023 Paroxysmal ventricular tachycardia (HCC) [I47.2*04/08/2023 Protein-calorie malnutrition, unspecified sever*01/30/2024 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 Date Time Provider Department 03/30/24 11:00 AM ENDER ROLLINS During your visit today, we recorded the following information about you: Pulse Respiration Blood pressure Weight 58/minute 16/minute 118/68 57.5 kg Ender Rollins MD 03/30/2024 1:19 PM Signed Chief Complaint Patient presents with: Follow Up: 4 week anxiety and weight recheck HPI Juli Shook is a 78 year old male who presents here today for Above Complaints. Accompanied today by daughter in law Wiseman. Patient switched from Zoloft to Prozac at last OV for increased fatigue. Previous HPI: Patient started on Zoloft at last OV for concerns for anxiety. He has been taking it in the evenings and they have noticed increased fatigue. The patient does state that he feels less anxious and daughters do agree. Compliant with Buspar [address] Leong's office. They would like to try alternative SSRI to help with fatigue. Weight is down 4 lbs since his OV 1 month ago. Daughters think that he has been missing meals and his Daughter Tl will be staying with him the next couple of weeks to make sure he eats. Since last OV, patient states that he was eating well while his daughter was there, but she left 2 weeks ago and he has not been checking his weight. Patient living alone with his still. DIL states that he is only eating about 1-2 meals per day. Patient states that he has not had much appetite, but does have food at home. not getting around well and she cannot cook and patient is unable to cook for himself. Patient goes out to eat when they have doctors appointments. Patient does not eat if family brings over meals, so they have not been bringing anything recently. Not supplementing with protein shakes regularly. Has had meals on wheels in the past and they did not eat it. Admits to SOB with COPD which is unchanged. Denies fever/chills, night sweats, nausea, vomiting, diarrhea, constipation, hematochezia, melena, urinary symptoms, chest pain. DIL states that they are looking into mcc, but his has been holding out on this. Patient appointment with Dr. Leong for Alzheimer's dementia yesterday and they discontinued is Buspar and switched him to Aricept for his dementia. Has not started it yet. Dementia testing in their office was slightly worse than 1 year ago per DIL. Ordered labs which were completed today. Has MRI of his brain ordered for 04/12. F/u scheduled for July. Fatigue has improved with stopping his Zoloft. DIL states that he does seem less anxious and mood is improved overall. Past medical history, appointments, medications, allergies reviewed. Previous Medical History PAST MEDICAL HISTORY Diagnosis Date Alzheimer's dementia ([facility]) Colon polyps Dr. Avalos COPD (chronic obstructive pulmonary disease) ([facility]) 01/27/2023 moderately severe Coronary artery disease Dr. 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 Daniel Memory impairment Dr. Leong Pulmonary embolism ([facility]) S/P IVC filter 2016 Thyroid nodule 12/20/2022 US at [facility] showed 2.7 cm nodule on right lobe Previous Surgical History PAST SURGICAL HISTORY Procedure Laterality Date COLONOSCOPY Last done age 69 or 70 with polyps. told he would not need follow up IVC FILTER PLACEMENT/REMOVAL 2016 STENT 1999, 2001 Cardiac x2 THORACENTESIS 2003 TONSILLECTOMY AND ADENOIDECTOMY HX childhood Family History FAMILY HISTORY Problem Relation Age of Onset Hypertension Father other (hypercoagulable state) Father other (hypercoagulable state) Other other (hypercoagulable state) Grandchild Thyroid Daughter other (factor v) Son Patient Allergies ALLERGIES Allergen Reactions Sulfa (Sulfonamide * Swelling Heparin Other: See Comments Patient states no reactions. Integrilin [Eptifib* Other: See Comments Patient states no reaction. Current Medications Current Outpatient Medications on File Prior to Visit Medication Sig donepezil (ARICEPT) 5 mg tablet Take 5 mg by mouth daily at bedtime. FLUoxetine (PROZAC) 20 mg capsule Take 1 capsule by mouth once daily. amLODIPine (NORVASC) 5 mg tablet Take 1 tablet by mouth once daily. doxazosin (CARDURA) 1 mg tablet Take 1 tablet by mouth daily at bedtime. carvedilol (COREG) 12.5 mg tablet Take 1 tablet by mouth two times a day with meals. lisinopril (ZESTRIL) 40 mg tablet Take 1 tablet by mouth once daily. atorvastatin (LIPITOR) 40 mg tablet Take 1 tablet by mouth daily at bedtime. apixaban (ELIQUIS) 2.5 mg tab(s) Take 1 tablet by mouth two times (more content not included)... Normal [facility] XR CHEST 2V FRONTAL/LATon XR CHEST 2V FRONTAL/LAT * * *Final Report* * * DATE OF EXAM: Mar 30 2024 11:56AM WOX 5291 - XR CHEST 2V FRONTAL/LAT / PROCEDURE REASON: Weight loss * * * * Physician Interpretation * * * * EXAMINATION: CHEST RADIOGRAPH (2 VIEW FRONTAL and LATERAL) CLINICAL HISTORY: Weight loss MQ: XC2_6 EXAM DATE/TIME: 03/30/2024 11:56 AM COMPARISON: 04/04/2023. RESULT: Lines, tubes, and devices: None. Lungs and pleura: Again identified is bilateral pulmonary emphysema. There is a small band of linear fibrosis in the right lung base. No definite infiltrates. No consolidation. No lung mass. No pleural effusion. No pneumothorax. Cardiomediastinal silhouette: Normal cardiomediastinal silhouette. Bones and soft tissues: Unremarkable. IMPRESSION: Stable exam with bilateral pulmonary emphysema and no acute radiographic abnormality. Electronic Tech: [facility] Transcribe Date/Time: Apr 03 2024 8:15A Dictated by : OZZIE DASILVA MD This examination was interpreted and the report reviewed and electronically signed by: OZZIE DASILVA MD on Apr 03 2024 8:17AM EST [id number] Normal [facility] XR Chest PA and Lateralon Radiology Study observation (narrative) [facility] CNOVon 02-27-2024 CNOV Office Visit (FAMPWS ) JULI SHOOK ([id number]) 1945 M [facility] Date Time Provider Department 02/27/24 10:20 AM ENDER ROLLINS During your visit today, we recorded the following information about you: Pulse Respiration Blood pressure Weight 56/minute 16/minute 120/70 58.4 kg Ender Rollins MD 03/01/2024 11:55 AM Signed Chief Complaint Patient presents with: Follow Up: 4 week- anxiety HPI Juli Shook is a 78 year old male who presents here today for Above Complaints. Accompanied today by daughters. Patient is poor historian due to his dementia. Patient started on Zoloft at last OV for concerns for anxiety. He has been taking it in the evenings and they have noticed increased fatigue. The patient does state that he feels less anxious and daughters do agree. Compliant with Buspar [address] Leong's office. They would like to try alternative SSRI to help with fatigue. Weight is down 4 lbs since his OV 1 month ago. Daughters think that he has been missing meals and his Daughter Tl will be staying with him the next couple of weeks to make sure he eats. Past medical history, appointments, medications, allergies reviewed. Previous Medical History PAST MEDICAL HISTORY Diagnosis Date Alzheimer's dementia (HCC) Colon polyps Dr. Avalos COPD (chronic obstructive pulmonary disease) ([facility]) 01/27/2023 moderately severe Coronary artery disease Dr. Bower DVT (deep venous thrombosis) ([facility]) multiple Dyslipidemia Factor V Leiden (HCC) def Generalized anxiety disorder Hypercoagulable state ([facility]) possible factor V homozygous Hypertension Intracranial aneurysm Intracranial hemorrhage ([facility]) 2015, 12/[address] Dr. aDniel Memory impairment Dr. Leong Pulmonary embolism ([facility]) S/P IVC filter 2016 Thyroid nodule 12/20/2022 US at [facility] showed 2.7 cm nodule on right lobe Previous Surgical History PAST SURGICAL HISTORY Procedure Laterality Date COLONOSCOPY Last done age 69 or 70 with polyps. told he would not need follow up IVC FILTER PLACEMENT/REMOVAL 2016 STENT 1999, 2001 Cardiac x2 THORACENTESIS 2003 TONSILLECTOMY AND ADENOIDECTOMY HX childhood Family History FAMILY HISTORY Problem Relation Age of Onset Hypertension Father other (hypercoagulable state) Father other (hypercoagulable state) Other other (hypercoagulable state) Grandchild Thyroid Daughter other (factor v) Son Patient Allergies ALLERGIES Allergen Reactions Sulfa (Sulfonamide * Swelling Heparin Other: See Comments Patient states no reactions. Integrilin [Eptifib* Other: See Comments Patient states no reaction. Current Medications Current Outpatient Medications on File Prior to Visit Medication Sig busPIRone (BUSPAR) 5 mg tablet Take 2 tablets by mouth once daily. sertraline (ZOLOFT) 50 mg tablet Take 1 tablet by mouth once daily. amLODIPine (NORVASC) 5 mg tablet Take 1 tablet by mouth once daily. doxazosin (CARDURA) 1 mg tablet Take 1 tablet by mouth daily at bedtime. carvedilol (COREG) 12.5 mg tablet Take 1 tablet by mouth two times a day with meals. lisinopril (ZESTRIL) 40 mg tablet Take 1 tablet by mouth once daily. atorvastatin (LIPITOR) 40 mg tablet Take 1 tablet by mouth daily at bedtime. apixaban (ELIQUIS) 2.5 mg tab(s) Take 1 tablet by mouth two times a day. fluticasone-vilanterol (BREO ELLIPTA) 100-25 mcg/dose inhaler Inhale 1 Inhalation as instructed once daily. albuterol HFA (VENTOLIN HFA) 90 mcg/actuation inhaler Inhale 2 Puffs as instructed every 4 hours as needed for wheezing/shortness of breath. Cholecalciferol, Vitamin D3, 125 mcg (5,000 unit) cap Take 5,000 Units by mouth once daily. No current facility-administered medications on file prior to visit. Social History Social History Tobacco Use Smoking status: Every Day Years: 60 Types: Cigarettes Last attempt to quit: 02/03/2019 Years since quittin.0 Smokeless tobacco: Never Vaping Use Vaping Use: Never used Substance Use Topics Alcohol use: Yes Alcohol/week: 7.0 standard drinks of alcohol Types: 7 Cans of Beer (12oz) per week Drug use: Never Review of Symptoms REVIEW OF SYSTEMS GENERAL: No weight loss, malaise or fevers RESPIRATORY: Negative for cough, hemoptysis, wheezing, COPD, dyspnea or shortness of breath CARDIOVASCULAR: Negative for chest pain, leg swelling, hypertension, CHF or palpitations GI: No nausea, vomiting, or diarrhea SKIN: Negative for lesions, rash, and itching EXAM: BP 120/70 Pulse (!) 56 Resp 16 Wt 58.4 kg (128 lb 12.8 oz) SpO2 96% BMI 17.96 kg/m? General Appearance: Well appearing, alert, in no acute distress, well-hydrated, well nourished.. Lungs: Lungs clear to auscultation. No wheezing, rhonchi, rales.. Heart: RRR without murmur, gallop, or rubs. No ectopy. Health Maintenance List Advance Directive D (more content not included)... Normal [facility] CBC W Auto Differential pane l (Bld)on 01-30-2024 Basophils (Bld) [#/Vol] 0.05 10*3/uL Normal <0.11 [facility] Comment on above: Order Comment: Speci men Type: BLOOD SPECIMENOrdering Facility: [facility] Address: [address] [place] [address] Performed By: #### 5 7021-8 ####[facility] LABCLIA [id number] [place] [address] [place] Basophils/100 WBC (Bld) 0.6 % Normal [facility] Comment on above: Order Comment: Speci men Type: BLOOD SPECIMENOrdering Facility: [facility] Address: [address] [place] [address] Performed By: #### 5 7021-8 ####[facility] LABCLIA [id number] [place] [address] [place] Differential cell count method Nom (Bld) Auto Normal [facility] Comment on above: Order Comment: Speci men Type: BLOOD SPECIMENOrdering Facility: [facility] Address: [address] [place] [address] Performed By: #### 5 7021-8 ####[facility] LABCLIA [id number] [place] [address] [place] Eosinophils (Bld) [#/Vol] 0.19 10*3/uL Normal <0.46 [facility] Comment on above: Order Comment: Speci men Type: BLOOD SPECIMENOrdering Facility: [facility] Address: [address] [place] [address] Performed By: #### 5 7021-8 ####[facility] LABCLIA [id number] [place] [address] [place] Eosinophils/100 WBC (Bld) 2.1 % Normal [facility] Comment on above: Order Comment: Speci men Type: BLOOD SPECIMENOrdering Facility: [facility] Address: [address] [place] [address] Performed By: #### 5 7021-8 ####[facility] LABIA [id number] [place] [address] [place] Erythrocyte distribution width (RBC) [Ratio] 14.2 % Normal 11.5-15.0 [facility] Comment on above: Order Comment: Speci men Type: BLOOD SPECIMENOrdering Facility: [facility] Address: [address] [place] [address] Performed By: #### 5 7021-8 ####[facility] LABIA [id number] [place] [address] [place] Hematocrit (Bld) [Volume fraction] 47.1 % Normal 39.0-51.0 [facility] Comment on above: Order Comment: Speci men Type: BLOOD SPECIMENOrdering Facility: [facility] Address: [address] [place] [address] Performed By: #### 5 7021-8 ####[facility] LABIA [id number] [place] [address] [place] Hemoglobin (Bld) [Mass/Vol] 15.4 g/dL Normal 13.0-17.0 [facility] Comment on above: Order Comment: Speci men Type: BLOOD SPECIMENOrdering Facility: [facility] Address: [address] [place] [address] Performed By: #### 5 7021-8 ####[facility] LABCLIA [id number] [place] [address] [place] Immature granulocytes (Bld) [#/Vol] 10*3/uL Normal <0.10 [facility] Comment on above: Order Comment: Speci men Type: BLOOD SPECIMENOrdering Facility: [facility] Address: [address] [place] [address] Performed By: #### 5 7021-8 ####[facility] LABCLIA [id number] [place] [address] [place] Immature granulocytes/100 WBC (Bld) 0.2 % Normal [facility] [facility] Comment on above: Order Comment: Speci men Type: BLOOD SPECIMENOrdering Facility: [facility] Address: [address] [place] [address] Performed By: #### 5 7021-8 ####[facility] LABCLIA [id number] [place] [address] [place] Lymphocytes (Bld) [#/Vol] 1.90 10*3/uL Normal 1.00-4.00 [facility] Comment on above: Order Comment: Speci men Type: BLOOD SPECIMENOrdering Facility: [facility] Address: [address] [place] [address] Performed By: #### 5 7021-8 ####[facility] LABIA [id number] [place] [address] [place] Lymphocytes/100 WBC (Bld) 21.0 % Normal [facility] Comment on above: Order Comment: Speci men Type: BLOOD SPECIMENOrdering Facility: [facility] Address: [address] [place] [address] Performed By: #### 5 7021-8 ####[facility] LABCLIA [id number] [place] [address] [place] MCH (RBC) [Entitic mass] 30.0 pg Normal 26.0-34.0 [facility] Comment on above: Order Comment: Speci men Type: BLOOD SPECIMENOrdering Facility: [facility] Address: [address] [place] [address] Performed By: #### 5 7021-8 ####[facility] LABIA [id number] [place] [address] [place] MCHC (RBC) [Mass/Vol] 32.7 g/dL Normal 30.5-36.0 [facility] Comment on above: Order Comment: Speci men Type: BLOOD SPECIMENOrdering Facility: [facility] Address: [address] [place] [address] Performed By: #### 5 7021-8 ####[facility] [id number] [place] [address] [place] MCV (RBC) [Entitic vol] 91.6 fL Normal 80.0-100.0 [facility] Comment on above: Order Comment: Speci men Type: BLOOD SPECIMENOrdering Facility: [facility] Address: [address] [place] [address] Performed By: #### 5 7021-8 ####[facility] [id number] [place] [address] [place] Monocytes (Bld) [#/Vol] 0.60 10*3/uL Normal <0.87 [facility] Comment on above: Order Comment: Speci men Type: BLOOD SPECIMENOrdering Facility: [facility] Address: [address] [place] [address] Performed By: #### 5 7021-8 ####[facility] LABIA [id number] [place] [address] [place] Monocytes/100 WBC (Bld) 6.6 % Normal [facility] Comment on above: Order Comment: Speci men Type: BLOOD SPECIMENOrdering Facility: [facility] Address: [address] [place] [address] Performed By: #### 5 7021-8 ####[facility] LABCLIA [id number] [place] [address] [place] Neutrophils (Bld) [#/Vol] 6.30 10*3/uL Normal 1.45-7.50 [facility] Comment on above: Order Comment: Speci men Type: BLOOD SPECIMENOrdering Facility: [facility] Address: [address] [place] [address] Performed By: #### 5 7021-8 ####[facility] LABCLIA [id number] [place] [address] [place] Neutrophils/100 WBC (Bld) 69.5 % Normal [facility] Comment on above: Order Comment: Speci men Type: BLOOD SPECIMENOrdering Facility: [facility] Address: [address] [place] [address] Performed By: #### 5 7021-8 ####[facility] LABCLIA [id number] [place] [address] [place] Nucleated RBC (Bld) [#/Vol] 10*3/uL Normal <0.01 [facility] Comment on above: Order Comment: Speci men Type: BLOOD SPECIMENOrdering Facility: [facility] Address: [address] [place] [address] Performed By: #### 5 7021-8 ####[facility] LABCLIA [id number] [place] [address] [place] Nucleated RBC/100 WBC (Bld) [Ratio] 0.0 /100 WBC Normal [facility] Comment on above: Order Comment: Speci men Type: BLOOD SPECIMENOrdering Facility: [facility] Address: [address] [place] [address] Performed By: #### 5 7021-8 ####[facility] LABCLIA [id number] [place] [address] [place] Platelet mean volume (Bld) [Entitic vol] 11.2 fL Normal 9.0-12.7 [facility] Comment on above: Order Comment: Speci men Type: BLOOD SPECIMENOrdering Facility: [facility] Address: [address] [place] [address] Performed By: #### 5 7021-8 ####[facility] LABCLIA [id number] [place] [address] [place] Platelets (Bld) [#/Vol] 273 10*3/uL Normal 150-400 [facility] Comment on above: Order Comment: Speci men Type: BLOOD SPECIMENOrdering Facility: [facility] Address: [address] [place] [address] Performed By: #### 5 7021-8 ####[facility] LABIA [id number] [place] [address] [place] RBC (Bld) [#/Vol] 5.14 10*6/uL Normal 4.20-6.00 [facility] Comment on above: Order Comment: Speci men Type: BLOOD SPECIMENOrdering Facility: [facility] Address: [address] [place] [address] Performed By: #### 5 7021-8 ####[facility] LABIA [id number] [place] [address] [place] WBC (Bld) [#/Vol] 9.06 10*3/uL Normal 3.70-11.00 [facility] Comment on above: Order Comment: Speci men Type: BLOOD SPECIMENOrdering Facility: [facility] Address: [address] [place] [address] Performed By: #### 5 7021-8 ####[facility] LABIA [id number] [place] [address] [place] CNOVon 01-30-2024 CNOV Office Visit (FAMPWS ) JULI SHOOK ([id number]) [address] [facility] Date Time Provider Department 01/30/24 9:40 AM ENDER ROLLINS During your visit today, we recorded the following information about you: Pulse Respiration Blood pressure Weight 61/minute 20/minute 124/62 60.1 kg Ender Rollins MD 01/30/2024 10:31 AM Signed Chief Complaint Patient presents with: Follow Up: 6 month HPI Juli Shook is a 78 year old male who presents here today for Above Complaints.Accompanied today by daughter. No new concerns. Denies recent falls. Patient is poor historian due to his dementia. Noted that Dr. Leong increased his Buspar from 5 mg to 10 mg daily for uncontrolled anxiety. Daughter does not think that this medication change has helped. Admits to feeling anxious, excessive worrying, increased agitation. Denies racing thoughts, insomnia, panic symptoms, SI/HI. Has f/u with their office on 03/29 to f/u with Alzheimer's dementia. COPD: Patient is compliant with Breo as prescribed. Complains of chronic productive cough with light yellow sputum. Rarely uses his albuterol inhaler. Denies fever/chills, SOB, wheezing. CAD: Managed by [facility] cardiology. Reviewed OV from 2 weeks ago without change in regimen. Denies chest pain, palpitations, LE edema. SOB attributed to COPD. On anticoagulation for history of PE/DVT and factor V. Denies bleeding or bruising symptoms. Requesting vitamin B12 level. Asking about restarting shots. Past medical history, appointments, medications, allergies reviewed. Previous Medical History PAST MEDICAL HISTORY Diagnosis Date Colon polyps Dr. Avalos COPD (chronic obstructive pulmonary disease) ([facility]) 01/27/2023 moderately severe Coronary artery disease Dr. Bower DVT (deep venous thrombosis) ([facility]) multiple Dyslipidemia Factor V Leiden ([facility]) def Hypercoagulable state ([facility]) possible factor V homozygous Hypertension Intracranial aneurysm Intracranial hemorrhage ([facility]) 2015, 12/2018 Dr. Khayyat Memory impairment Dr. Leong Pulmonary embolism (HCC) S/P IVC filter 2016 Thyroid nodule 12/20/2022 US at [facility] showed 2.7 cm nodule on right lobe Previous Surgical History PAST SURGICAL HISTORY Procedure Laterality Date COLONOSCOPY Last done age 69 or 70 with polyps. told he would not need follow up IVC FILTER PLACEMENT/REMOVAL 2016 STENT 1999, 2001 Cardiac x2 THORACENTESIS 2003 TONSILLECTOMY AND ADENOIDECTOMY HX childhood Family History FAMILY HISTORY Problem Relation Age of Onset Hypertension Father other (hypercoagulable state) Father other (hypercoagulable state) Other other (hypercoagulable state) Grandchild Thyroid Daughter other (factor v) Son Patient Allergies ALLERGIES Allergen Reactions Sulfa (Sulfonamide * Swelling Heparin Other: See Comments Patient states no reactions. Integrilin [Eptifib* Other: See Comments Patient states no reaction. Current Medications Current Outpatient Medications on File Prior to Visit Medication Sig amLODIPine (NORVASC) 5 mg tablet Take 1 tablet by mouth once daily. doxazosin (CARDURA) 1 mg tablet Take 1 tablet by mouth daily at bedtime. carvedilol (COREG) 12.5 mg tablet Take 1 tablet by mouth two times a day with meals. lisinopril (ZESTRIL) 40 mg tablet Take 1 tablet by mouth once daily. atorvastatin (LIPITOR) 40 mg tablet Take 1 tablet by mouth daily at bedtime. apixaban (ELIQUIS) 2.5 mg tab(s) Take 1 tablet by mouth two times a day. fluticasone-vilanterol (BREO ELLIPTA) 100-25 mcg/dose inhaler Inhale 1 Inhalation as instructed once daily. busPIRone (BUSPAR) 5 mg tablet Take 1 tablet by mouth once daily. albuterol HFA (VENTOLIN HFA) 90 mcg/actuation inhaler Inhale 2 Puffs as instructed every 4 hours as needed for wheezing/shortness of breath. Cholecalciferol, Vitamin D3, 125 mcg (5,000 unit) cap Take 5,000 Units by mouth once daily. No current facility-administered medications on file prior to visit. Social History Social History Tobacco Use Smoking status: Every Day Years: 58 Types: Cigarettes Last attempt to quit: 02/03/2019 Years since quittin.9 Smokeless tobacco: Never Vaping Use Vaping Use: Never used Substance Use Topics Alcohol use: Yes Alcohol/week: 7.0 standard drinks of alcohol Types: 7 Cans of Beer (12oz) per week Drug use: Never Review of Symptoms REVIEW OF SYSTEMS GENERAL: No weight loss, malaise or fevers RESPIRATORY: See HPI CARDIOVASCULAR: Negative for chest pain, leg swelling, hypertension, CHF or palpitations GI: No nausea, vomiting, or diarrhea SKIN: Negative for lesions, rash, and itching EXAM: BP 124/62 Pulse 61 Resp 20 Wt 60.1 kg (132 lb 6.4 oz) SpO2 95% BMI 18.47 kg/m? General Appearance: Well appearing, alert, in no acute distress, well-hydrated, well nourished.. Skin: Skin color, aimee (more content not included)... Normal [facility] Comprehensive metabolic 2000 panelon 01-30-2024 Albumin [Mass/Vol] 3.9 g/dL Normal 3.9-4.9 [facility] Comment on above: Order Comment: Speci men Type: BLOOD SPECIMENOrdering Facility: [facility] Address: [address] [place] [address] Performed By: #### 2 132-9, 76220-8, LIPNF ####[facility] LABCLIA [id number] [place] [address] [place] ALP [Catalytic activity/Vol] 128 U/L High 38-113 [facility] Comment on above: Order Comment: Speci men Type: BLOOD SPECIMENOrdering Facility: [facility] Address: [address] [place] [address] Performed By: #### 2 132-9, 66980-9, LIPNF ####[facility] LABCLIA [id number] [place] [address] [place] ALT [Catalytic activity/Vol] 15 U/L Normal 10-54 [facility] Comment on above: Order Comment: Speci men Type: BLOOD SPECIMENOrdering Facility: [facility] Address: [address] [place] [address] Performed By: #### 2 132-9, 56092-8, LIPNF ####[facility] LABCLIA [id number] [place] [address] [place] Anion gap [Moles/Vol] 11 mmol/L Normal 9-18 [facility] Comment on above: Order Comment: Speci men Type: BLOOD SPECIMENOrdering Facility: [facility] Address: [address] [place] [address] Performed By: #### 2 132-9, 60650-4, LIPNF ####[facility] LABCLIA [id number] [place] [address] [place] AST [Catalytic activity/Vol] 21 U/L Normal 14-40 [facility] Comment on above: Order Comment: Speci men Type: BLOOD SPECIMENOrdering Facility: [facility] Address: [address] [place] [address] Performed By: #### 2 132-9, 52853-8, LIPNF ####[facility] LABCLIA [id number] [place] [address] [place] Bilirubin [Mass/Vol] 0.8 mg/dL Normal 0.2-1.3 [facility] Comment on above: Order Comment: Speci men Type: BLOOD SPECIMENOrdering Facility: [facility] Address: [address] [place] [address] Performed By: #### 2 132-9, 56796-4, LIPNF ####[facility] LABCLIA [id number] [place] [address] [place] Calcium [Mass/Vol] 9.6 mg/dL Normal 8.5-10.2 [facility] Comment on above: Order Comment: Speci men Type: BLOOD SPECIMENOrdering Facility: [facility] Address: [address] [place] [address] Performed By: #### 2 132-9, 44433-6, LIPNF ####[facility] LABCLIA [id number] [place] [address] [place] Chloride [Moles/Vol] 104 mmol/L Normal 97-105 [facility] Comment on above: Order Comment: Speci men Type: BLOOD SPECIMENOrdering Facility: [facility] Address: [address] [place] [address] Performed By: #### 2 132-9, 72871-3, LIPNF ####[facility] LABCLIA [id number] [place] [id number] [place] CO2 [Moles/Vol] 26 mmol/L Normal 22-30 [facility] Comment on above: Order Comment: Speci men Type: BLOOD SPECIMENOrdering Facility: [facility] Address: [address] [place] [address] Performed By: #### 2 132-9, 41712-3, LIPNF ####[facility] LABCLIA [id number] [place] [address] [place] Creatinine [Mass/Vol] 1.06 mg/dL Normal 0.73-1.22 [facility] Comment on above: Order Comment: Speci men Type: BLOOD SPECIMENOrdering Facility: [facility] Address: [address] [place] [address] Performed By: #### 2 132-9, 63458-4, LIPNF ####[facility] LABIA [id number] [place] [address] [place] Creatinine and Glomerular filtration rate.predicted panel (S/P/Bld) 71 mL/min/1.73m??? Normal >=60 [facility] Comment on above: Order Comment: Speci men Type: BLOOD SPECIMENOrdering Facility: [facility] Address: [address] [place] [address] Result Comment: [place] mated Glomerular Filtration Rate (eGFR) is calculated using the 2020 CKD-EPI creatinine equation. This equation utilizes serum creatinine, sex, and age as parameters. The creatinine assay has traceable calibration to isotope dilution-mass spectrometry. Refer to KDIGO guidelines for clinical interpretation. In patients with unstable renal function, e.g. those with acute kidney injury, the eGFR may not accurately reflect actual GFR. Performed By: #### 2 132-9, 48687-6, LIPNF ####[facility] LABCLIA [id number] [place] [address] [place] Glucose [Mass/Vol] 90 mg/dL Normal 74-99 [facility] Comment on above: Order Comment: Speci men Type: BLOOD SPECIMENOrdering Facility: [facility] Address: [address] [place] [address] Result Comment: The [place] Diabetes Association (ADA) provides guidance for cutoff values for fasting glucose and random glucose. The ADA defines fasting as no caloric intake for at least 8 hours. Fasting plasma glucose results between 100 to 125 mg/dL indicate increased risk for diabetes (prediabetes). Fasting plasma glucose results greater than or equal to 126 mg/dL meet the criteria for diagnosis of diabetes. In the absence of unequivocal hyperglycemia, results should be confirmed by repeat testing. In a patient with classic symptoms of hyperglycemia or hyperglycemic crisis, random plasma glucose results greater than or equal to 200 mg/dL meet the criteria for diagnosis of diabetes. Reference: Standards of Medical Care in Diabetes 2016, [place] Diabetes Association. Diabetes Care. 2016.39(Suppl 1). Performed By: #### 2 132-9, 54168-2, LIPNF ####[facility] LABIA [id number] [place] [address] [place] Potassium [Moles/Vol] 4.0 mmol/L Normal 3.7-5.1 [facility] Comment on above: Order Comment: Speci men Type: BLOOD SPECIMENOrdering Facility: [facility] Address: [address] [place] [address] Performed By: #### 2 132-9, 05574-0, LIPNF ####[facility] LABIA [id number] [place] [address] [place] Protein [Mass/Vol] 6.9 g/dL Normal 6.3-8.0 [facility] Comment on above: Order Comment: Speci men Type: BLOOD SPECIMENOrdering Facility: [facility] Address: [address] [place] [address] Performed By: #### 2 132-9, 98889-6, LIPNF ####[facility] LABCLIA [id number] [address] [address] [place] Sodium [Moles/Vol] 141 mmol/L Normal 136-144 [facility] Comment on above: Order Comment: Speci men Type: BLOOD SPECIMENOrdering Facility: [facility] Address: [address] [place] [address] Performed By: #### 2 132-9, 04600-2, LIPNF ####[facility] LABCLIA [id number] [place] [address] [place] Urea nitrogen [Mass/Vol] 14 mg/dL Normal 9-24 [facility] Comment on above: Order Comment: Speci men Type: BLOOD SPECIMENOrdering Facility: [facility] Address: [address] [place] [address] Performed By: #### 2 132-9, 32082-3, LIPNF ####[facility] LABCLIA [id number] [place] [address] [place] LIPID PANEL, NONFASTINGon Cholesterol [Mass/Vol] 122 mg/dL Normal <200 [facility] Comment on above: Order Comment: Speci men Type: BLOOD SPECIMENOrdering Facility: [facility] Address: [address] [place] [address] Result Comment: <200 mg/dL, Desirable 200-239 mg/dL, Borderline high >239 mg/dL, High Performed By: #### 2 132-9, 96010-3, LIPNF ####[facility] LABIA [id number] [place] [address] [place] HDL CHOLESTEROL, NF 56 mg/dL Normal >39 [facility] Comment on above: Order Comment: Speci men Type: BLOOD SPECIMENOrdering Facility: [facility] Address: [address] [place] [address] Result Comment: 40-5 9 mg/dL, Acceptable >59 mg/dL, High: Negative risk factor for coronary heart disease <40 mg/dL, Low: Positive risk factor for coronary heart disease Performed By: #### 2 132-9, 48866-9, LIPNF ####[facility] LABCLIA [id number] [place] [address] [place] LDL CHOLESTEROL, NF 54 mg/dL Normal <100 [facility] Comment on above: Order Comment: Speci men Type: BLOOD SPECIMENOrdering Facility: [facility] Address: [address] [place] [address] Result Comment: <100 mg/dL, Optimal 100-129 mg/dL, Near optimal/above optimal 130-159 mg/dL, Borderline high 160-189 mg/dL, High >189 mg/dL, Very high Secondary prevention optimal LDL Cholesterol levels are recommended to be < 70 mg/dL Performed By: #### 2 132-9, 89962-3, LIPNF ####[facility] LABCLIA [id number] [address] [place] LDL/HDL RATIO, NF 0.96 mg/dL Normal <2.54 [facility] Comment on above: Order Comment: Speci men Type: BLOOD SPECIMENOrdering Facility: [facility] Address: [address] [place] [address] Result Comment: Refe rence: 1. National Cholesterol Education Program ATP III Guideline At-A-Glance Quick Desk Reference: National Heart, Lung, and Blood Eagle. National Institutes of Health. 2001: NIH Publication No. 01-3305. 2. An International Atherosclerosis Society position paper: global recommendations for the management of dyslipidemia: executive summary, Atherosclerosis. 2014: 232(2):410-413. Performed By: #### 2 132-9, 84374-0, LIPNF ####[facility] LABCLIA [id number] [place] [address] [place] NON HDL CHOL, NF 66 mg/dL Normal <130 [facility] Comment on above: Order Comment: Speci men Type: BLOOD SPECIMENOrdering Facility: [facility] Address: [address] [place] [address] Result Comment: <130 mg/dL, Optimal 130-159 mg/dL, Near optimal/above optimal 160-189 mg/dL, Borderline high 190-219 mg/dL, High >219 mg/dL, Very high Secondary prevention optimal non HDL Cholesterol levels are recommended to be <100 mg/dL Performed By: #### 2 132-9, 21027-7, LIPNF ####[facility] LABCLIA [id number] [place] [address] [place] T CHOL/HDL RATIO NF 2.18 mg/dL Normal <5.10 [facility] Comment on above: Order Comment: Speci men Type: BLOOD SPECIMENOrdering Facility: [facility] Address: [address] [place] [address] Performed By: #### 2 132-9, 45925-4, LIPNF ####[facility] LABCLIA [id number] [place] [address] [place] TRIGLYCERIDES, NF 58 mg/dL Normal <150 [facility] Comment on above: Order Comment: Speci men Type: BLOOD SPECIMENOrdering Facility: [facility] Address: [address] [place] [address] Result Comment: <150 mg/dL, Normal 150-199 mg/dL, Borderline high 200-499 mg/dL, High >499 mg/dL, Very high Performed By: #### 2 132-9, 57068-5, LIPNF ####[facility] LABCLIA [id number] [place] [address] [place] VLDL CHOLESTEROL, NF 12 mg/dL Normal <30 [facility] Comment on above: Order Comment: Speci men Type: BLOOD SPECIMENOrdering Facility: [facility] Address: [address] [place] [address] Performed By: #### 2 132-9, 10336-5, LIPNF ####[facility] LABCLIA [id number] [place] [address] [place] Vit B12 SerPl-ncon 024 Cobalamin (Vitamin B12) [Mass/Vol] 446 pg/mL Normal 232-1245 [facility] Comment on above: Order Comment: Speci men Type: BLOOD SPECIMENOrdering Facility: [facility] Address: [address] [place] [address] Performed By: #### 2 132-9, 46074-0, LIPNF ####[facility] LABCLIA [id number] [address] [place] CNOVon 11-07-2023 CNOV Office Visit (UROLMD ) JULI SHOOK ([id number]) [address] [facility] Date Time Provider Department 11/07/23 10:20 AM MAKAYLA GAMA UROMARIANA During your visit today, we recorded the following information about you: Weight 60.3 kg Sonya Johnson LPN 11/07/2023 10:42 AM Signed Bladder scan obtained 0 ml of urine Makayla Gama, MAIL DIST[employer]BUTION [employer]HEME EXAMINER.[employer] 11/07/2023 11:13 AM Signed Juli Youngton is a 78 year old male who presents today for evaluation of Patient presents with: Follow Up Benign Prostatic Hypertrophy CHIEF COMPLAINT AND HISTORY OF PRESENT ILLNESS CC: follow up 78 year old male with history of CAD, HTN, BPH presents for follow up. Overall he is feeling well, denies dysuria, gross hematuria. Currently taking doxazosin 1 mg at bedtime DTF 5 times NTF 1-2 times but typically once Denies straining to void Stream strong PVR 0 cc was 40 cc was 147 cc at last office visit creatinine 1.09 Last UTI October 2022 Past Urological History: Stones:no Surgery:no Tumors:no Infections:yes: last uti 2022 Family History of prostate Ca:no VITALS: Weight 60.3 kg (133 lb). ALLERGIES: Sulfa (Sulfonamide Antibiotics), Heparin, and Integrilin [Eptifibatide] MEDICATIONS: Current Outpatient Medications Medication Sig Dispense Refill lisinopril (ZESTRIL) 40 mg tablet Take 1 tablet by mouth once daily. 90 tablet 1 fluticasone-vilanterol (BREO ELLIPTA) 100-25 mcg/dose inhaler Inhale 1 Inhalation as instructed once daily. 60 Each 5 amLODIPine (NORVASC) 5 mg tablet Take 1 tablet by mouth once daily. 90 tablet 1 apixaban (ELIQUIS) 2.5 mg tab(s) Take 1 tablet by mouth two times a day. 180 tablet 1 atorvastatin (LIPITOR) 40 mg tablet Take 1 tablet by mouth daily at bedtime. 90 tablet 1 busPIRone (BUSPAR) 5 mg tablet Take 1 tablet by mouth once daily. 90 tablet 1 carvedilol (COREG) 12.5 mg tablet Take 1 tablet by mouth two times a day with meals. 180 tablet 1 doxazosin (CARDURA) 1 mg tablet Take 1 tablet by mouth daily at bedtime. 90 tablet 1 albuterol HFA (VENTOLIN HFA) 90 mcg/actuation inhaler Inhale 2 Puffs as instructed every 4 hours as needed for wheezing/shortness of breath. 1 Each 2 Cholecalciferol, Vitamin D3, 125 mcg (5,000 unit) cap Take 5,000 Units by mouth once daily. No current facility-administered medications for this visit. SOCIAL HISTORY: Social History Tobacco Use Smoking status: Every Day Years: 60 Types: Cigarettes Last attempt to quit: 02/03/2019 Years since quittin.7 Smokeless tobacco: Never Vaping Use Vaping Use: Never used Substance Use Topics Alcohol use: Yes Alcohol/week: 7.0 standard drinks of alcohol Types: 7 Cans of Beer (12oz) per week Drug use: Never PAST MEDICAL HISTORY: PAST MEDICAL HISTORY Diagnosis Date Colon polyps Dr. Avalos COPD (chronic obstructive pulmonary disease) ([facility]) 01/27/2023 moderately severe Coronary artery disease Dr. Bower DVT (deep venous thrombosis) ([facility]) multiple Dyslipidemia Factor V Leiden ([facility]) def Hypercoagulable state ([facility]) possible factor V homozygous Hypertension Intracranial aneurysm Intracranial hemorrhage ([facility]) 2015, 12/2018 Dr. Daniel Memory impairment Dr. Leong Pulmonary embolism (HCC) S/P IVC filter 2016 Thyroid nodule 12/20/2022 US at [facility] showed 2.7 cm nodule on right lobe PAST SURGICAL HISTORY: PAST SURGICAL HISTORY Procedure Laterality Date COLONOSCOPY Last done age 69 or 70 with polyps. told he would not need follow up IVC FILTER PLACEMENT/REMOVAL 2016 STENT 1999, 2001 Cardiac x2 THORACENTESIS 2003 TONSILLECTOMY AND ADENOIDECTOMY HX childhood FAMILY HISTORY: FAMILY HISTORY Problem Relation Age of Onset Hypertension Father other (hypercoagulable state) Father other (hypercoagulable state) Other other (hypercoagulable state) Grandchild Thyroid Daughter other (factor v) Son All histories reviewed on this date 11/07/2023: Yes REVIEW OF SYSTEMS: CONSTITUTIONAL: Patient reports no recent fever or weight loss CARDIOVASCULAR: Negative for chest pain. RESPIRATORY: Negative for cough, hemoptysis, wheezing, COPD, dyspnea or shortness of breath MUSCULOSKELETAL: denies back pain or muscular weakness All other systems reviewed and are negative other than HPI. RADIOLOGY REPORTS REVIEWED: Yes LAB RESULTS REVIEWED: Yes IMAGING STUDIES INDEPENDENTLY REVIEWED: No OLD RECORDS REVIEWED: Yes: Extensive: No PHYSICAL EXAM: constitutional: appears healthy in no acute distress respiratory: normal respiratory motion Neuro: use of walker ASSESSMENT/PLAN: ASSESSMENT/PLAN: 1. BPH with obstruction/lower urinary tract symptoms - ICD9: 600.01, 599.69, ICD10: N40.1, N13.8 -PVR 0 cc -stable LUTS -continue taking doxazosin 1 mg at bedtime, no refills needed -follow up in one year - BLADDER SCAN Patient is instructed to schedule a follow (more content not included)... Normal [facility] XR Chest PA and Lateralon IMPRESSION: Hyperinflated lungs due to emphysema/air trapping. No acute radiographic abnormality. Electronic Tech: PSCB Transcribe Date/Time: Apr 04 2023 6:35P Dictated by : STEFANIE SORIA MD This examination was interpreted and the report reviewed and electronically signed by: STEFANIE SORIA MD on Apr 04 2023 6:35PM [facility] DIVISION OF RADIOLOGY * * *Final Report* * * DATE OF EXAM: Apr 04 2023 11:47AM WOX 5291 - XR CHEST 2V FRONTAL/LAT / PROCEDURE REASON: Chronic obstructive pulmonary disease, unspecified COPD type (HCC) * * * * Physician Interpretation * * * * EXAMINATION: CHEST RADIOGRAPH (2 VIEW FRONTAL & LATERAL) CLINICAL HISTORY: Chronic obstructive pulmonary disease, unspecified COPD type (HCC) MQ: XC2_6 EXAM DATE/TIME: 04/04/2023 11:47 AM COMPARISON: 01/22/2023 RESULT: Lines, tubes, and devices: None. Lungs and pleura: Hyperinflated lungs due to air trapping/emphysema. No consolidation. No lung mass. No pleural effusion. No pneumothorax. Cardiomediastinal silhouette: Normal cardiomediastinal silhouette. Bones and soft tissues: Degenerative changes are present within the thoracic spine. DIV[facility]OLOGY [facility] * * *Final Report* * * DATE OF EXAM: Apr 04 2023 11:47AM WOX 5291 - XR CHEST 2V FRONTAL/LAT / PROCEDURE REASON: Chronic obstructive pulmonary disease, unspecified COPD type (HCC) * * * * Physician Interpretation * * * * EXAMINATION: CHEST RADIOGRAPH (2 VIEW FRONTAL & LATERAL) CLINICAL HISTORY: Chronic obstructive pulmonary disease, unspecified COPD type (HCC) MQ: XC2_6 EXAM DATE/TIME: 04/04/2023 11:47 AM COMPARISON: 01/22/2023 RESULT: Lines, tubes, and devices: None. Lungs and pleura: Hyperinflated lungs due to air trapping/emphysema. No consolidation. No lung mass. No pleural effusion. No pneumothorax. Cardiomediastinal silhouette: Normal cardiomediastinal silhouette. Bones and soft tissues: Degenerative changes are present within the thoracic spine. IMPRESSION IMPRESSION: Hyperinflated lungs due to emphysema/air trapping. No acute radiographic abnormality. Electronic Tech: PSCB Transcribe Date/Time: Apr 04 2023 6:35P Dictated by : STEFANIE SORIA MD This examination was interpreted and the report reviewed and electronically signed by: STEFANIE SORIA MD on Apr 04 2023 6:35PM EST [facility] Radiology Study observation (narrative) [facility] XR Chest PA and LateralOrder ed By: Cc Provider on 04-04-2023 [facility] SPIROMETRY - BASELINE AND PO ST DILATORon 04-03-2023 DLG21-72% POST (L/S) 0.72 L/S [facility] CXQ58-01% PRE (L/S) 0.53 L/S [facility] FEV1 PRE (L) 1.38 L [facility] FEV1/FVC POST (%) 52 [facility] FEV1/FVC PRE (%) 48 [facility] FEV1_POST (L) 1.56 L [facility] FVC POST (L) 3.03 L [facility] FVC PRE (L) 2.86 L [facility] PEF POST (L/S) 4.48 L/S [facility] PEF PRE (L/S) 3.87 L/S [facility] XR CHEST 2V FRONTAL/LATon [facility] XR Chest PA and Lateralon IMPRESSION: No acute radiographic abnormalities identified. Electronic Tech: SIS Transcribe Date/Time: Jan 22 2023 3:44P Dictated by : GUS ALFORD MD This examination was interpreted and the report reviewed and electronically signed by: GUS ALFORD MD on Jan 22 2023 3:47PM [facility] DIVISION OF RADIOLOGY * * *Final Report* * * DATE OF EXAM: Jan 22 2023 3:43PM WOX 5291 - XR CHEST 2V FRONTAL/LAT / PROCEDURE REASON: Cough in adult patient * * * * Physician Interpretation * * * * EXAMINATION: CHEST RADIOGRAPH (2 VIEW FRONTAL & LATERAL) CLINICAL HISTORY: Cough in adult patient MQ: XC2_6 EXAM DATE/TIME: 01/22/2023 3:43 PM COMPARISON: Chest x-ray on 01/08/2019 RESULT: Lines, tubes, and devices: None. Lungs and pleura: The bilateral lungs are overexpanded, with flattening of the hemidiaphragms, likely secondary to COPD. There are no consolidative opacities seen. No masses. No pleural effusions or pneumothorax. Cardiomediastinal silhouette: Normal cardiomediastinal silhouette. There appears be a coronary stent in place. Bones and soft tissues: Unremarkable. DIVISION OF RADIOLOGY Provider, [facility] - 01/22/2023 * * *Final Report* * * DATE OF EXAM: Jan 22 2023 3:43PM WOX 5291 - XR CHEST 2V FRONTAL/LAT / PROCEDURE REASON: Cough in adult patient * * * * Physician Interpretation * * * * EXAMINATION: CHEST RADIOGRAPH (2 VIEW FRONTAL & LATERAL) CLINICAL HISTORY: Cough in adult patient MQ: XC2_6 EXAM DATE/TIME: 01/22/2023 3:43 PM COMPARISON: Chest x-ray on 01/08/2019 RESULT: Lines, tubes, and devices: None. Lungs and pleura: The bilateral lungs are overexpanded, with flattening of the hemidiaphragms, likely secondary to COPD. There are no consolidative opacities seen. No masses. No pleural effusions or pneumothorax. Cardiomediastinal silhouette: Normal cardiomediastinal silhouette. There appears be a coronary stent in place. Bones and soft tissues: Unremarkable. IMPRESSION IMPRESSION: No acute radiographic abnormalities identified. Electronic Tech: SIS Transcribe Date/Time: Jan 22 2023 3:44P Dictated by : GUS ALFORD MD This examination was interpreted and the report reviewed and electronically signed by: GUS ALFORD MD on Jan 22 2023 3:47PM EST [facility] Radiology Study observation (narrative) [facility] XR Chest PA and LateralOrder ed By: Ccf Provider on 01-22-2023 [facility] ANTITHROMBIN IIIon Antithrombin actual/normal Chromogenic method (PPP) [Rel catalytic activity/Vol] 110 % 85 - 118 % [facility] Interpretation and review of laboratory results Normal [facility] DNA EXTRACTION, [id number] B y: Adriana Colon on 12-24-2022 [facility] FACTOR V + PROTHROMBIN KARL SISOrdered By: Vance Warren on 12-24-2022 Receiving Status Accessioned in Lab [facility] MOLECULAR SUMMARYon 12-24-19 [facility] PROTEIN S ACTIVITYOrdered By : Liz Colon on 12-24-2022 Interpretation and review of laboratory results Normal [facility] Protein S actual/normal Coag (PPP) [Relative time] 58 [facility] ANTITHROMBIN IIIon 3 Antithrombin 110 % Normal 85-118 [facility] Comment on above: Performed By: #### X M #### [facility] (DEFAULT) [address] [place] [address] 60485 CBC AND ELECTRONIC DIFFon Basophils (Bld) [#/Vol] 0.05 10*3/uL Normal 0.00-0.09 [facility] Comment on above: Performed By: #### X M #### [facility] (DEFAULT) [address] [place] [address] 11987 Basophils/100 WBC (Bld) 0.6 % Normal [facility] Comment on above: Performed By: #### X M #### [facility] (DEFAULT) [address] [place] [address] 91619 DIFF STATUS Electronic Differential Normal [facility] Comment on above: Performed By: #### X M #### [facility] (DEFAULT) [address] [place] [address] 92483 Eosinophils (Bld) [#/Vol] 0.34 10*3/uL Normal 0.00-0.48 [facility] Comment on above: Performed By: #### X M #### [facility] (DEFAULT) [address] [place] [address] 33134 Eosinophils/100 WBC (Bld) 4.2 % Normal [facility] Comment on above: Performed By: #### X M #### [facility] (DEFAULT) [address] [place] [address] 40899 Hematocrit (Bld) [Volume fraction] 39.8 % Normal 39.6-48.8 [facility] Comment on above: Performed By: #### X M #### [facility] (DEFAULT) [address] [place] [address] 33339 Hemoglobin (Bld) [Mass/Vol] 12.5 g/dL Low 13.4-16.8 [facility] Comment on above: Performed By: #### X M #### [facility] (DEFAULT) [address] [place] [address] 55403 Immature Grans % 0.4 % Normal [facility] Comment on above: Performed By: #### X M #### [facility] (DEFAULT) [address] [place] [address] 17559 Immature Grans Absolute < Normal <=0.07 [facility] Comment on above: Performed By: #### X M #### [facility] (DEFAULT) [address] [place] [address] 17539 Lymphocytes (Bld) [#/Vol] 1.71 10*3/uL Normal 0.83-3.57 [facility] Comment on above: Performed By: #### X M #### [facility] (DEFAULT) [address] [place] [address] 04326 Lymphocytes/100 WBC (Bld) 21.3 % Normal [facility] Comment on above: Performed By: #### X M #### [facility] (DEFAULT) [address] [place] [address] 31958 MCV (RBC) [Entitic vol] 91.7 fL Normal 79.0-94.5 [facility] Comment on above: Result Comment: Resu lts inconsistent with previous results Performed By: #### X M #### [facility] (DEFAULT) [address] [place] [address] 18953 Mean Cell Hgb 28.8 pg Normal 26.1-33.3 [facility] Comment on above: Performed By: #### X M #### [facility] (DEFAULT) [address] [place] [address] 96303 Mean Cell Hgb Conc 31.4 g/dL Low 31.9-36.5 [facility] Comment on above: Performed By: #### X M #### [facility] (DEFAULT) [address] [place] [address] 70222 Monocytes (Bld) [#/Vol] 0.74 10*3/uL Normal 0.24-0.93 [facility] Comment on above: Performed By: #### X M #### [facility] (DEFAULT) [address] [address] Monocytes/100 WBC (Bld) 9.2 % Normal [facility] Comment on above: Performed By: #### X M #### [facility] (DEFAULT) [address] [place] [address] 75383 Nucleated RBC 0.0 /100 WBC Normal <=0.2 [facility] Comment on above: Performed By: #### X M #### [facility] (DEFAULT) [address] [place] [address] 92654 Platelet mean volume (Bld) [Entitic vol] 11.1 fL Normal 8.7-12.3 [facility] Comment on above: Performed By: #### X M #### [facility] (DEFAULT) [address] [address] Platelets (Bld) [#/Vol] 278 10*3/uL Normal 146-337 [facility] Comment on above: Performed By: #### X M #### [facility] (DEFAULT) [address] [place] [address] 25001 RBC (Bld) [#/Vol] 4.34 10*6/uL Low 4.38-5.83 [facility] Comment on above: Performed By: #### X M #### [facility] (DEFAULT) [address] [place] [address] 03648 RBC Distribution 14.6 % High 10.9-14.3 [facility] Comment on above: Performed By: #### X M #### [facility] (DEFAULT) [address] [place] [address] 37954 Segs + Bands Auto 64.3 % Normal [facility] Comment on above: Performed By: #### X M #### [facility] (DEFAULT) [address] [place] [address] 82330 Segs + Bands,Absolute Auto 5.17 K/uL Normal 1.57-6.19 [facility] Comment on above: Performed By: #### X M #### [facility] (DEFAULT) [address] [place] [address] WBC (Bld) [#/Vol] 8.04 10*3/uL Normal 3.73-10.10 [facility] Comment on above: Performed By: #### X M #### [facility] (DEFAULT) [address] [place] [address] Basophils (Bld) [#/Vol] 0.05 10*3/uL 0.00 - 0.09 K/uL [facility] Basophils/100 WBC (Bld) 0.6 % [facility] Differential cell count method Nom (Bld) Electronic Differential [facility] Eosinophils (Bld) [#/Vol] 0.34 10*3/uL 0.00 - 0.48 K/uL [facility] Eosinophils/100 WBC (Bld) 4.2 % [facility] Erythrocyte distribution width (RBC) [Ratio] 14.6 % High 10.9 - 14.3 % [facility] Hematocrit (Bld) [Volume fraction] 39.8 % 39.6 - 48.8 % [facility] Hemoglobin (Bld) [Mass/Vol] 12.5 g/dL Low 13.4 - 16.8 g/dL [facility] Immature granulocytes (Bld) [#/Vol] K/uL NINF - 0.07 K/uL [facility] Immature granulocytes/100 WBC (Bld) 0.4 % [facility] Interpretation and review of laboratory results Abnormal [facility] Lymphocytes (Bld) [#/Vol] 1.71 10*3/uL 0.83 - 3.57 K/uL [facility] Lymphocytes/100 WBC (Bld) 21.3 % [facility] MCH (RBC) [Entitic mass] 28.8 pg 26.1 - 33.3 pg [facility] MCHC (RBC) [Mass/Vol] 31.4 g/dL Low 31.9 - 36.5 g/dL [facility] MCV (RBC) [Entitic vol] 91.7 fL 79.0 - 94.5 fL [facility] Comment on above: Results inconsistent with previous results Monocytes (Bld) [#/Vol] 0.74 10*3/uL 0.24 - 0.93 K/uL [facility] Monocytes/100 WBC (Bld) 9.2 % [facility] Neutrophils (Bld) [#/Vol] 5.17 10*3/uL 1.57 - 6.19 K/uL [facility] Nucleated RBC/100 WBC (Bld) [Ratio] 0.0 % BANNERF [facility] Platelet mean volume (Bld) [Entitic vol] 11.1 fL 8.7 - 12.3 fL [facility] Platelets (Bld) [#/Vol] 278 10*3/uL 146 - 337 K/uL [facility] RBC (Bld) [#/Vol] 4.34 10*6/uL Low [facility] Segmented neutrophils/100 WBC (Bld) 64.3 % [facility] WBC (Bld) [#/Vol] 8.04 10*3/uL 3.73 - 10. 10 K/uL [facility] COMPREHENSIVE METABOLIC PANE Maximus 12-23-2022 Albumin [Mass/Vol] 3.4 g/dL Low 3.5-5.0 [facility] Comment on above: Performed By: #### U R #### [facility] (DEFAULT) [address] [place] [address] 99712 ALP [Catalytic activity/Vol] 86 U/L Normal 32-126 [facility] Comment on above: Performed By: #### U R #### [facility] (DEFAULT) [address] [place] [address] ALT [Catalytic activity/Vol] 18 U/L Normal 10-52 [facility] Comment on above: Performed By: #### U R #### [facility] (DEFAULT) [address] [place] [address] 75621 Anion gap [Moles/Vol] 10 mmol/L Normal 7-17 [facility] Comment on above: Performed By: #### U R #### [facility] (DEFAULT) [address] [place] [address] 59424 AST [Catalytic activity/Vol] 22 U/L Normal 10-39 [facility] Comment on above: Performed By: #### U R #### [facility] (DEFAULT) [address] [place] [address] 93861 Bilirubin [Mass/Vol] 0.7 mg/dL Normal <1.5 [facility] Comment on above: Performed By: #### U R #### [facility] (DEFAULT) [address] [place] [address] 97066 Calcium [Mass/Vol] 8.9 mg/dL Normal 8.6-10.5 [facility] Comment on above: Performed By: #### U R #### [facility] (DEFAULT) [address] [place] [address] 20446 Chloride [Moles/Vol] 107 mmol/L Normal 98-108 [facility] Comment on above: Performed By: #### U R #### [facility] (DEFAULT) [address] [place] [address] 35677 CO2 [Moles/Vol] 27 mmol/L Normal 21-31 [facility] Comment on above: Performed By: #### U R #### [facility] (DEFAULT) [address] [place] [address] 26534 Creatinine [Mass/Vol] 0.85 mg/dL Normal 0.70-1.30 [facility] Comment on above: Performed By: #### U R #### [facility] (DEFAULT) [address] [place] [address] 47067 GFR/1.73 sq M.predicted among non-blacks MDRD (S/P/Bld) [Vol rate/Area] 88 mL/min/{1.73_m2} Normal >=60 [facility] Comment on above: Result Comment: Repo rted eGFR is based on the CKD-EPI 2020 equation using creatinine, age, and sex. Performed By: #### U R #### [facility] (DEFAULT) [address] [place] [address] 08473 Glucose [Mass/Vol] 87 mg/dL Normal 70-99 [facility] Comment on above: Performed By: #### U R #### [facility] (DEFAULT) [address] [place] [address] 25095 Osmolality [Osmolality] 294 mosm/kg Normal 278-305 [facility] Comment on above: Performed By: #### U R #### [facility] (DEFAULT) [address] [place] [address] 54071 Potassium [Moles/Vol] 4.9 mmol/L Normal 3.5-5.0 [facility] Comment on above: Performed By: #### U R #### [facility] (DEFAULT) [address] [place] [address] 55602 Protein [Mass/Vol] 6.3 g/dL Low 6.4-8.3 [facility] Comment on above: Performed By: #### U R #### [facility] (DEFAULT) [address] [place] [address] 23365 Sodium [Moles/Vol] 139 mmol/L Normal 135-145 [facility] Comment on above: Performed By: #### U R #### [facility] (DEFAULT) [address] [place] [address] 02831 Urea nitrogen [Mass/Vol] 19 mg/dL Normal 7-25 [facility] Comment on above: Performed By: #### U R #### [facility] (DEFAULT) [address] [place] [address] 33936 Urea nitrogen/Creatinine [Mass ratio] 22 mg/mg Normal [facility] Comment on above: Performed By: #### U R #### [facility] (DEFAULT) [address] [place] [address] 93819 Albumin [Mass/Vol] 3.4 g/dL Low 3.5 - 5.0 g/dL [facility] ALP [Catalytic activity/Vol] 86 U/L 32 - 126 U/L [facility] ALT [Catalytic activity/Vol] 18 U/L 10 - 52 U/L [facility] Anion gap [Moles/Vol] 10 mmol/L 7 - 17 mmol/L [facility] AST [Catalytic activity/Vol] 22 U/L 10 - 39 U/L [facility] Bilirubin [Mass/Vol] 0.7 mg/dL NINF - 1.5 mg/dL [facility] Calcium [Mass/Vol] 8.9 mg/dL 8.6 - 10. 5 mg/dL [facility] Chloride [Moles/Vol] 107 mmol/L 98 - 10 8 mmol/L [facility] CO2 [Moles/Vol] 27 mmol/L 21 - 31 mmol/L [facility] Creatinine [Mass/Vol] 0.85 mg/dL 0.70 - 1.30 mg/dL [facility] GFR/1.73 sq M.predicted CKD-EPI (S/P/Bld) [Vol rate/Area] 88 - PINF [facility] Comment on above: Reported eGFR is bas ed on the CKD-EPI 2020 equation using creatinine, age, and sex. Glucose [Mass/Vol] 87 mg/dL 70 - 99 mg/dL [facility] Osmolality Calc [Osmolality] 294 [facility] Potassium [Moles/Vol] 4.9 mmol/L 3.5 - 5.0 mmol/L [facility] Protein [Mass/Vol] 6.3 g/dL Low 6.4 - 8.3 g/dL [facility] Sodium [Moles/Vol] 139 mmol/L 135 - 145 mmol/L [facility] Urea nitrogen [Mass/Vol] 19 mg/dL 7 - 25 mg/dL [facility] Urea nitrogen/Creatinine [Mass ratio] 22 mg/mg [facility] FACTOR V + PROTHROMBIN KARL Miguel 12-23-2022 Receiving Status Accessioned in Lab Normal [facility] Comment on above: Performed By: #### L [id number] #### [facility] (DEFAULT) [address] [place] [address] 60227 FERRITINon 12-23-2022 Ferritin [Mass/Vol] 231.8 ng/mL 22.0 - 3 22.0 ng/mL [facility] Interpretation and review of laboratory results Normal [facility] Ferritin [Mass/Vol] 231.8 ng/mL Normal 22.0-322.0 [facility] Comment on above: Performed By: #### U R #### [facility] (DEFAULT) [address] [place] [address] 00998 IRON/IRON BINDING/TRANSFERRI Non 12-23-2022 Iron [Mass/Vol] 50 ug/dL Normal 40-174 [facility] Comment on above: Performed By: #### X M #### [facility] (DEFAULT) [address] [place] [address] 17782 Iron Saturation 22 % Normal 20-55 [facility] Comment on above: Performed By: #### X M #### [facility] (DEFAULT) [address] [place] [address] 35220 Total Iron Binding Capacity 229 mcg/dL Low 250-425 [facility] Comment on above: Performed By: #### X M #### [facility] (DEFAULT) [address] [place] [address] 83262 Transferrin [Mass/Vol] 183 mg/dL Low 200-400 [facility] Comment on above: Performed By: #### X M #### [facility] (DEFAULT) [address] [place] [address] 80601 Iron [Mass/Vol] 50 ug/dL [facility] Iron binding capacity [Mass/Vol] 229 Low [facility] Iron saturation [Mass fraction] 22 % 20 - 55 % [facility] Transferrin [Mass/Vol] 183 mg/dL Low 200 - 400 mg/dL [facility] No Panel Informationon 12-23 [facility] Interpretation and review of laboratory results Abnormal [facility] [facility] PROTEIN C ACTIVITYon 023 Protein C Activity 46 % Activity Low 72-220 [facility] Comment on above: Result Comment: Repe ated and verified Results may be decreased for a variety of reasons including oral anticoagulants and recent thrombotic events. Clinical correlation recommended. Performed By: #### X M #### [facility] (DEFAULT) [address] [place] [address] 22227 PROTEIN S ACTIVITYon 023 Protein S Activity 58 % Activity Normal 50-168 [facility] Comment on above: Performed By: #### X M #### [facility] (DEFAULT) [address] [place] [address] 51993 PT,INR,PTTon 12-23-2022 aPTT Coag (Bld) [Time] 30.3 s Normal 24.0-34.3 [facility] Comment on above: Performed By: #### C HM7 #### [facility] (DEFAULT) [address] [place] [address] 19946 INR Coag (PPP) [Relative time] 1.1 {INR} Normal 0.9-1.1 [facility] Comment on above: Performed By: #### C HM7 #### [facility] (DEFAULT) [address] [place] [address] 19403 PT Coag (PPP) [Time] 14.2 s Normal 11.9-14.2 [facility] Comment on above: Performed By: #### C HM7 #### [facility] (DEFAULT) [address] [place] [address] 13023 aPTT Coag (PPP) [Time] 30.3 s [facility] INR Coag (Bld) [Relative time] 1.1 {INR} 0.9 - 1.1 [facility] Interpretation and review of laboratory results Normal [facility] PT Coag (PPP) [Time] 14.2 s [facility] RETICULOCYTESon 12-23-2022 Retic Absolute 0.0816 M/uL Normal 0.0317-0.137 7 [facility] Comment on above: Performed By: #### X M #### [facility] (DEFAULT) [address] [place] [address] Retic Count 1.88 % Normal 0.68-2.64 [facility] Comment on above: Performed By: #### X M #### [facility] (DEFAULT) [address] [place] [address] Interpretation and review of laboratory results Normal [facility] Reticulocytes (Bld) [#/Vol] 0.0816 10*3/uL [facility] Reticulocytes/100 RBC (Bld) 1.88 % 0.68 - 2.64 % [facility] ALLIED HEALTHon 12-11-2022 [facility] HNO ID: [id number] Author: MARILEE Griffin Service: ? Author Type: Technologist Type: Allied Health Filed: 12/11/2022 2:55 AM Note Text: Radiology Service Progress Note PATIENT NAME: Juli Shook DATE OF SERVICE: December 11, 2022 TIME: 2:55 AM PATIENT IDENTITY VERIFICATION COMPLETED USING TWO (2) IDENTIFIERS: Name and Date of confirmed by patient verbally and Name and Date of confirmed by identification band. FALL SCREENING: Has the patient had 2 falls in the last year or 1 fall with injury or currently using an Ambulatory Assistive Device (Walker, Cane, Wheelchair, Crutches, etc.)? Emergency Room Patient: Screened in ED PATIENT GENDER DATA: Male PATIENT RELEVANT IMPLANT DATA REVIEWED: Not Applicable RADIOLOGY DEPARTMENT: CT; Exam(s) Completed: Brain PERIPHERAL IV DATA: Not applicable SIGNED BY: MARILEE Griffin December 11, 2022 2:55 AM Normal [facility] CT BRAIN WO IVCONon 12-11-19 CT BRAIN WO IVCON * * *Final Report* * * DATE OF EXAM: Dec 11 2022 3:18AM [facility] [place] [place] BRAIN WO IVCON / PROCEDURE REASON: Head trauma, moderate-severe * * * * Physician Interpretation * * * * EXAMINATION: CT BRAIN WO IVCON CLINICAL HISTORY: Trauma TECHNIQUE: Serial axial images without IV contrast were obtained from the vertex to the foramen magnum. MQ: [id number] CT Radiation dose: Integrated Dose-Length Product (DLP) for this visit = 778.29 mGy*cm CT Dose Reduction Employed: Automated exposure control (AEC) COMPARISON: CT 01/07/2019, MRI 06/25/2021. RESULT: Post-operative change: None. Acute change: No evidence of an acute infarct or other acute parenchymal process. Hemorrhage: No evidence of acute intracranial hemorrhage. ECASS hemorrhagic transformation score: Not Applicable Mass Lesion / Mass Effect: There is no evidence of an intracranial mass or extraaxial fluid collection. No significant mass effect. Chronic change: New parenchymal low density along the right NON CDL DRIVER territory with superimposed faint age-indeterminate but presumed acute to subacute hemorrhage. No mass effect or midline shift. No definitive intraventricular extension. Otherwise, evolution of left frontal hemorrhage with now encephalomalacia. Moderate white matter small vessel changes are also similar in appearance to comparison Parenchyma: There is moderate generalized volume loss. The brain parenchyma is otherwise within normal limits for age. Ventricles: Unchanged ventricle size without interval enlargement to suggest new or developing hydrocephalus. Paranasal sinuses and skull base: The visualized paranasal sinuses show near complete opacification of the right sphenoid sinus with air filled secretion and some degree of adjacent bony thickening.. The skull base and imaged soft tissues are unremarkable. Embedded Systems Software Engineer (topogram) images: IMPRESSION: New from 2020 right NON CDL DRIVER territory infarct with overlying hemorrhage with appearance that suggests acute to subacute origin. No mass effect, midline shift, intraventricular extension, or evidence of hydrocephalus. Acute on chronic inflammatory changes of the right sphenoid sinus. Correlate for acute clinical sinusitis. Findings discussed with Dr. Patiño at 3:30 AM Electronic Tech: SIS Transcribe Date/Time: Dec 11 2022 3:23A Dictated by : SOCO LOPES MD This examination was interpreted and the report reviewed and electronically signed by: SOCO LOPES MD on Dec 11 2022 3:34AM EST [id number] [facility] ED NOTEon 12-11-2022 ED NOTE HNO ID: [id number] Author: Norberto Grant RN Service: Nursing Author Type: Registered Nurse Type: ED Notes Filed: 12/11/2022 8:14 AM Note Text: Pt discharged to home in stable condition with transport. No noted distress - respirations equal and unlabored. AVS and medications reviewed in report. Facility staff verbalized understanding and importance of follow up care. No questions for this RN at this time. [facility] ED NOTE HNO ID: [id number] Author: Jojo Ramírez RN Service: ? Author Type: Registered Nurse Type: ED Notes Filed: 12/11/2022 5:35 AM Note Text: [facility] plan to to return to facility. Ford placed in patient and is drainng [facility] ED NOTE HNO ID: [id number] Author: Jojo Ramírez RN Service: ? Author Type: Registered Nurse Type: ED Notes Filed: 12/11/2022 5:33 AM Note Text: Called report [facility] ED NOTE HNO ID: [id number] Author: Jojo Ramírez RN Service: ? Author Type: Registered Nurse Type: ED Notes Filed: 12/11/2022 5:12 AM Note Text: Son was at bedside and aware of plan to be discharged to home, new ford placed [facility] ED PROV NOTEon 12-11-2022 ED PROV NOTE HNO ID: [id number] Author: Yun Marte MD Service: ? Author Type: Physician Type: ED Provider Notes Filed: 12/11/2022 5:16 AM Note Text: ED Provider Note Patient Name: Juli Shook : 1945 SERVICE DATE: 12/11/22 History Patient presents with: Ford Cath Problem: Ford fell out at [facility] Patient presents here after an unwitnessed fall where he excellently pulled out his Ford catheter. He is on anticoagulants. He is at an extended care facility. He has a history of dementia and confusion. The patient pulled out his Ford and it was bleeding quite profusely. He was sent here for further evaluation and Ford placement. He also had an unwitnessed fall and is on thinners so will need further evaluation for that. He appears to be at his normal baseline mental status but really cannot answer any other questions PAST MEDICAL HISTORY Diagnosis Date Colon polyps Dr. Avalos Coronary artery disease Dr. 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 Daniel Memory impairment Dr. Leong Pulmonary embolism ([facility]) S/P IVC filter 2016 PAST SURGICAL HISTORY Procedure Laterality Date COLONOSCOPY Last done age 69 or 70 with polyps. told he would not need follow up IVC FILTER PLACEMENT/REMOVAL 2016 STENT 1999, 2001 Cardiac x2 THORACENTESIS 2003 TONSILLECTOMY AND ADENOIDECTOMY HX childhood FAMILY HISTORY Problem Relation Age of Onset Hypertension Father other (hypercoagulable state) Father other (hypercoagulable state) Other other (hypercoagulable state) Grandchild Thyroid Daughter other (factor v) Son Social History Tobacco Use Smoking status: Every Day Years: 60.00 Types: Cigarettes Last attempt to quit: 02/03/2019 Years since quittin.8 Smokeless tobacco: Never Vaping Use Vaping Use: Never used Substance and Sexual Activity Alcohol use: Yes Alcohol/week: 17.5 standard drinks Types: 7 Cans of Beer (12oz) per week Drug use: Never Sexual activity: Yes Partners: Female ALLERGIES Allergen Reactions Sulfa (Sulfonamide * Swelling Heparin Other: See Comments Patient states no reactions. Integrilin [Eptifib* Other: See Comments Patient states no reaction. Review of Systems Unable to perform ROS: Dementia Physical Exam Vitals [12/11/22 0242] BP Pulse Temp Temp src Resp SpO2 Weight Height 120/69 64 36.7 ?C (98.1 ?F) -- -- 96 % 59.6 kg (131 lb 6.3 oz) -- Physical Exam Vitals and nursing note reviewed. Constitutional: General: He is not in acute distress. Appearance: He is well-developed. He is not ill-appearing, toxic-appearing or diaphoretic. HENT: Head: Normocephalic and atraumatic. Nose: Nose normal. Eyes: General: No scleral icterus. Right eye: No discharge. Left eye: No discharge. Extraocular Movements: Extraocular movements intact. Conjunctiva/sclera: Conjunctivae normal. Pupils: Pupils are equal, round, and reactive to light. Neck: Vascular: No JVD. Trachea: No tracheal deviation. Cardiovascular: Rate and Rhythm: Normal rate and regular rhythm. Heart sounds: Normal heart sounds. No murmur heard. Pulmonary: Effort: Pulmonary effort is normal. No respiratory distress. Breath sounds: Normal breath sounds. No stridor. No wheezing or rales. Chest: Chest wall: No tenderness. Abdominal: General: Bowel sounds are normal. There is no distension. Palpations: Abdomen is soft. There is no mass. Tenderness: There is no abdominal tenderness. There is no guarding or rebound. Genitourinary: Comments: Patient has a large blood clot at the meatus. There is no other obvious penile trauma. No continued active bleeding Musculoskeletal: General: No tenderness or deformity. Normal range of motion. Cervical back: Normal range of motion and neck supple. Comments: He has some scattered abrasions on his back but no specific midline point tenderness Skin: General: Skin is warm and dry. Coloration: Skin is not pale. Findings: No erythema or rash. Neurological: Mental Status: He is alert. Mental status is at baseline. Cranial Nerves: No cranial nerve deficit. Motor: No abnormal muscle tone. Coordination: Coordination normal. Psychiatric: Comments: Cannot assess secondary to mental status Diagnostic Testing ED Labs Ordered and Reviewed - No data to display Procedures ED Course / Clinical Impression Clinical Impressions as of 12/11/22 0514 Fall, initial encounter Traumatic hematuria Problem with Ford catheter, initial encounter ([facility]) Encounter for Ford catheter replacement Nontraumatic subcortical hemorrhage of left cerebral hemisphere (HCC) Factor 5 Leiden mutation, heterozygous ([facility]) Anticoagulated MDM / Disposition / Plan Presented h (more content not included)... Normal [facility] CBC,PLATELETSon 11-29-2022 Hematocrit (Bld) [Volume fraction] 37.5 % Low 39.6-48.8 [facility] Comment on above: Performed By: #### X M #### [facility] (DEFAULT) [address] [address] Hemoglobin (Bld) [Mass/Vol] 12.6 g/dL Low 13.4-16.8 [facility] Comment on above: Performed By: #### X M #### [facility] (DEFAULT) [address] [address] MCV (RBC) [Entitic vol] 85.6 fL Normal 79.0-94.5 [facility] Comment on above: Performed By: #### X M #### [facility] (DEFAULT) [address] [address] Mean Cell Hgb 28.8 pg Normal 26.1-33.3 [facility] Comment on above: Performed By: #### X M #### [facility] (DEFAULT) [address] [address] Mean Cell Hgb Conc 33.6 g/dL Normal 31.9-36.5 [facility] Comment on above: Performed By: #### X M #### [facility] (DEFAULT) [address] [address] Platelet mean volume (Bld) [Entitic vol] 10.1 fL Normal 8.7-12.3 [facility] Comment on above: Performed By: #### X M #### [facility] (DEFAULT) [address] [address] Platelets (Bld) [#/Vol] 309 10*3/uL Normal 146-337 [facility] Comment on above: Performed By: #### X M #### [facility] (DEFAULT) [address] [address] RBC (Bld) [#/Vol] 4.38 10*6/uL Normal 4.38-5.83 [facility] Comment on above: Performed By: #### X M #### [facility] (DEFAULT) [address] [address] RBC Distribution 13.1 % Normal 10.9-14.3 [facility] Comment on above: Performed By: #### X M #### [facility] (DEFAULT) [address] [place] [address] WBC (Bld) [#/Vol] 10.80 10*3/uL High 3.73-10.10 [facility] Comment on above: Performed By: #### X M #### [facility] (DEFAULT) [address] [place] [address] Erythrocyte distribution width (RBC) [Ratio] 13.1 % 10.9 - 14.3 % [facility] Hematocrit (Bld) [Volume fraction] 37.5 % Low 39.6 - 48.8 % [facility] Hemoglobin (Bld) [Mass/Vol] 12.6 g/dL Low 13.4 - 16.8 g/dL [facility] Interpretation and review of laboratory results Abnormal [facility] MCH (RBC) [Entitic mass] 28.8 pg 26.1 - 33.3 pg [facility] MCHC (RBC) [Mass/Vol] 33.6 g/dL 31.9 - 36.5 g/dL [facility] MCV (RBC) [Entitic vol] 85.6 fL 79.0 - 94.5 fL [facility] Platelet mean volume (Bld) [Entitic vol] 10.1 fL 8.7 - 12.3 fL [facility] Platelets (Bld) [#/Vol] 309 10*3/uL 146 - 337 K/uL [facility] RBC (Bld) [#/Vol] 4.38 10*6/uL [facility] WBC (Bld) [#/Vol] 10.80 10*3/uL High 3.73 - 10 .10 K/uL [facility] CHEM 7 (LYTES,BUN,CREA,GLUC) on 11-29-2022 Anion gap [Moles/Vol] 11 mmol/L Normal 7-17 [facility] Comment on above: Performed By: #### C HM7 #### [facility] (DEFAULT) [address] [place] [address] Chloride [Moles/Vol] 107 mmol/L Normal 98-108 [facility] Comment on above: Performed By: #### C HM7 #### [facility] (DEFAULT) [address] [place] [address]99 CO2 [Moles/Vol] 23 mmol/L Normal 21-31 [facility] Comment on above: Performed By: #### C HM7 #### [facility] (DEFAULT) [address] [place] [address]402 Creatinine [Mass/Vol] 0.65 mg/dL Low 0.70-1.30 [facility] Comment on above: Performed By: #### C HM7 #### [facility] (DEFAULT) [address] [place] [address] eGFR, CKD-EPI, Male > Normal >=60 [facility] Comment on above: Result Comment: Repo rted eGFR is based on the CKD-EPI 2020 equation using creatinine, age, and sex. Performed By: #### C HM7 #### [facility] (DEFAULT) [address] [place] [address] Glucose [Mass/Vol] 97 mg/dL Normal 70-99 [facility] Comment on above: Performed By: #### C HM7 #### [facility] (DEFAULT) [address] [place] [address]017 Osmolality [Osmolality] 292 mosm/kg Normal 278-305 [facility] Comment on above: Performed By: #### C HM7 #### [facility] (DEFAULT) [address] [place] [address]31 Potassium [Moles/Vol] 3.5 mmol/L Normal 3.5-5.0 [facility] Comment on above: Performed By: #### C HM7 #### [facility] (DEFAULT) [address] [place] [address]327 Sodium [Moles/Vol] 137 mmol/L Normal 135-145 [facility] Comment on above: Performed By: #### C HM7 #### [facility] (DEFAULT) [address] [place] [address] Urea nitrogen [Mass/Vol] 30 mg/dL High 7-25 [facility] Comment on above: Performed By: #### C HM7 #### [facility] (DEFAULT) [address] [place] [address] Urea nitrogen/Creatinine [Mass ratio] 46 mg/mg Normal [facility] Comment on above: Performed By: #### C HM7 #### [facility] (DEFAULT) [address] [place] [address] Anion gap [Moles/Vol] 11 mmol/L 7 - 17 mmol/L [facility] Chloride [Moles/Vol] 107 mmol/L 98 - 10 8 mmol/L [facility] CO2 [Moles/Vol] 23 mmol/L 21 - 31 mmol/L [facility] Creatinine [Mass/Vol] 0.65 mg/dL Low 0.70 - 1.30 mg/dL [facility] GFR/1.73 sq M.predicted CKD-EPI (S/P/Bld) [Vol rate/Area] - PINF [facility] Comment on above: Reported eGFR is bas ed on the CKD-EPI 2020 equation using creatinine, age, and sex. Glucose [Mass/Vol] 97 mg/dL 70 - 99 mg/dL [facility] Interpretation and review of laboratory results Abnormal [facility] Osmolality Calc [Osmolality] 292 [facility] Potassium [Moles/Vol] 3.5 mmol/L 3.5 - 5.0 mmol/L [facility] Sodium [Moles/Vol] 137 mmol/L 135 - 145 mmol/L [facility] Urea nitrogen [Mass/Vol] 30 mg/dL High 7 - 25 mg/dL [facility] Urea nitrogen/Creatinine [Mass ratio] 46 mg/mg [facility] EXTRA MICROon 11-29-2022 [facility] CBC,PLATELETSon 11-28-2022 Hematocrit (Bld) [Volume fraction] 40.4 % Normal 39.6-48.8 [facility] Comment on above: Performed By: #### X M #### [facility] (DEFAULT) [address] [address] Hemoglobin (Bld) [Mass/Vol] 13.2 g/dL Low 13.4-16.8 [facility] Comment on above: Performed By: #### X M #### [facility] (DEFAULT) [address] [address] MCV (RBC) [Entitic vol] 87.6 fL Normal 79.0-94.5 [facility] Comment on above: Performed By: #### X M #### [facility] (DEFAULT) [address] [address] Mean Cell Hgb 28.6 pg Normal 26.1-33.3 [facility] Comment on above: Performed By: #### X M #### [facility] (DEFAULT) [address] [address] Mean Cell Hgb Conc 32.7 g/dL Normal 31.9-36.5 [facility] Comment on above: Performed By: #### X M #### [facility] (DEFAULT) [address] [address] Platelet mean volume (Bld) [Entitic vol] 10.7 fL Normal 8.7-12.3 [facility] Comment on above: Performed By: #### X M #### [facility] (DEFAULT) [address] [address] Platelets (Bld) [#/Vol] 312 10*3/uL Normal 146-337 [facility] Comment on above: Performed By: #### X M #### [facility] (DEFAULT) [address] [address] RBC (Bld) [#/Vol] 4.61 10*6/uL Normal 4.38-5.83 [facility] Comment on above: Performed By: #### X M #### [facility] (DEFAULT) [address] [place] [address] RBC Distribution 13.5 % Normal 10.9-14.3 [facility] Comment on above: Performed By: #### X M #### [facility] (DEFAULT) [address] [place] [address] WBC (Bld) [#/Vol] 13.50 10*3/uL High 3.73-10.10 [facility] Comment on above: Performed By: #### X M #### [facility] (DEFAULT) [address] [place] [address] Erythrocyte distribution width (RBC) [Ratio] 13.5 % 10.9 - 14.3 % [facility] Hematocrit (Bld) [Volume fraction] 40.4 % 39.6 - 48.8 % [facility] Hemoglobin (Bld) [Mass/Vol] 13.2 g/dL Low 13.4 - 16.8 g/dL [facility] Interpretation and review of laboratory results Abnormal [facility] MCH (RBC) [Entitic mass] 28.6 pg 26.1 - 33.3 pg [facility] MCHC (RBC) [Mass/Vol] 32.7 g/dL 31.9 - 36.5 g/dL [facility] MCV (RBC) [Entitic vol] 87.6 fL 79.0 - 94.5 fL [facility] Platelet mean volume (Bld) [Entitic vol] 10.7 fL 8.7 - 12.3 fL [facility] Platelets (Bld) [#/Vol] 312 10*3/uL 146 - 337 K/uL [facility] RBC (Bld) [#/Vol] 4.61 10*6/uL [facility] WBC (Bld) [#/Vol] 13.50 10*3/uL High 3.73 - 10 .10 K/uL [facility] CHEM 7 (LYTES,BUN,CREA,GLUC) on 11-28-2022 Anion gap [Moles/Vol] 14 mmol/L Normal 7-17 [facility] Comment on above: Performed By: #### Snehal ARREDONDO [id number] #### [facility] (DEFAULT) [address] [place] [address] Chloride [Moles/Vol] 108 mmol/L Normal 98-108 [facility] Comment on above: Performed By: #### Snehal ARREDONDO [id number] #### [facility] (DEFAULT) [address] [place] [address] CO2 [Moles/Vol] 21 mmol/L Normal 21-31 [facility] Comment on above: Performed By: #### Snehal ARREDONDO [id number] #### [facility] (DEFAULT) [address] [place] [address] Creatinine [Mass/Vol] 0.80 mg/dL Normal 0.70-1.30 [facility] Comment on above: Performed By: #### Snehal ARREDONDO [id number] #### [facility] (DEFAULT) [address] [place] [address] GFR/1.73 sq M.predicted among non-blacks MDRD (S/P/Bld) [Vol rate/Area] 90 mL/min/{1.73_m2} Normal >=60 [facility] Comment on above: Result Comment: Repo rted eGFR is based on the CKD-EPI 2020 equation using creatinine, age, and sex. Performed By: #### Snehal ARREDONDO [id number] #### [facility] (DEFAULT) [address] [place] [address] Glucose [Mass/Vol] 113 mg/dL High 70-99 [facility] Comment on above: Performed By: #### Snehal [id number], [id number] #### [facility] (DEFAULT) [address] [place] [address] Osmolality [Osmolality] 301 mosm/kg Normal 278-305 [facility] Comment on above: Performed By: #### L [id number], [id number] #### [facility] (DEFAULT) [address] [place] [address] Potassium [Moles/Vol] 3.5 mmol/L Normal 3.5-5.0 [facility] Comment on above: Performed By: #### L [id number], [id number] #### [facility] (DEFAULT) [address] [place] [address] Sodium [Moles/Vol] 139 mmol/L Normal 135-145 [facility] Comment on above: Performed By: #### L [id number], [id number] #### [facility] (DEFAULT) [address] [place] [address] Urea nitrogen [Mass/Vol] 40 mg/dL High 7-25 [facility] Comment on above: Performed By: #### Snehal [id number], [id number] #### [facility] (DEFAULT) [address] [place] [address] Urea nitrogen/Creatinine [Mass ratio] 50 mg/mg Normal [facility] Comment on above: Performed By: #### L [id number], [id number] #### [facility] (DEFAULT) [address] [place] [address] Anion gap [Moles/Vol] 14 mmol/L 7 - 17 mmol/L [facility] [facility] Chloride [Moles/Vol] 108 mmol/L 98 - 10 8 mmol/L [facility] CO2 [Moles/Vol] 21 mmol/L 21 - 31 mmol/L [facility] Creatinine [Mass/Vol] 0.80 mg/dL 0.70 - 1.30 mg/dL [facility] GFR/1.73 sq M.predicted CKD-EPI (S/P/Bld) [Vol rate/Area] 90 - PINF [facility] Comment on above: Reported eGFR is bas ed on the CKD-EPI 2020 equation using creatinine, age, and sex. Glucose [Mass/Vol] 113 mg/dL High 70 - 99 mg/dL [facility] Interpretation and review of laboratory results Abnormal [facility] Osmolality Calc [Osmolality] 301 [facility] Potassium [Moles/Vol] 3.5 mmol/L 3.5 - 5.0 mmol/L [facility] Sodium [Moles/Vol] 139 mmol/L 135 - 145 mmol/L [facility] Urea nitrogen [Mass/Vol] 40 mg/dL High 7 - 25 mg/dL [facility] Urea nitrogen/Creatinine [Mass ratio] 50 mg/mg [facility] CONTINUOUS CARDIAC MONITORIN G STRIPon 11-28-2022 [facility] SARS-COV-2 RAPIDon 3 SARS-CoV-2 (COVID-19) RNA NATHANIEL+probe Ql (Unsp spec) Not detected Normal NOT DETECTED [facility] Comment on above: Order Comment: Use r jesus, foam, polyester or flocked swabs to collect a nasopharyngeal specimen. After collection, fold over the open end of the collection sleeve and seal with patient lab label, double bag in biohazard bag, and transport to the lab JOSÉ LUIS, no later than 60 minutes from collection. Collection must be done while wearing N-95 mask, eye protection, gown and gloves. Result Comment: [facility] Negative results do not preclude SARS-CoV-2 infection and should not be used as the sole basis for treatment or other patient management decisions. Optimum specimen types and timing for peak viral levels during infections caused by SARS-CoV-2 has not been determined. The possibility of a false negative result should especially be considered if the patient's recent exposures or clinical presentation suggest that SARS-CoV-2 infection is probable, and diagnostic tests for other causes of illness (e.g., other respiratory illness) are negative. Collection of a new specimen and re-testing may be necessary if the patient is critically ill or clinically deteriorating. This test was performed using isothermal nucleic acid amplification technology for the qualitative detection of SARS-CoV-2 nucleic acid. The test has been authorized by the FDA under an emergency use authorization for use by authorized laboratories. Performed By: #### G ASVL #### [facility] (DEFAULT) [address] [place] [address] SARS-CoV-2 (COVID-19) RNA NA A+probe Ql (Unsp spec)Ordered By: Yuli Novak on 11-28-2022 Interpretation and review of laboratory results Normal [facility] SARS-CoV-2 (COVID-19) RdRp gene NATHANIEL+probe Ql (Resp) Not detected NOT DETECTED [facility] Comment on above: [facility] Negative results do not preclude SARS-CoV-2 infection and should not be used as the sole basis for treatment or other patient management decisions. Optimum specimen types and timing for peak viral levels during infections caused by SARS-CoV-2 has not been determined. The possibility of a false negative result should especially be considered if the patient's recent exposures or clinical presentation suggest that SARS-CoV-2 infection is probable, and diagnostic tests for other causes of illness (e.g., other respiratory illness) are negative. Collection of a new specimen and re-testing may be necessary if the patient is critically ill or clinically deteriorating. This test was performed using isothermal nucleic acid amplification technology for the qualitative detection of SARS-CoV-2 nucleic acid. The test has been authorized by the FDA under an emergency use authorization for use by authorized laboratories. [facility] URINALYSIS REFLEX TO CULTURE PERFORMABLEon 11-28-2022 Appearance (U) Clear Normal Clear [facility] Comment on above: Order Comment: For i ndwelling catheters, specimen collection is acceptable on catheter day 1 and 2 only. ? Performed By: #### G ASVL #### [facility] (DEFAULT) [address] [address] Bacteria ABSENT Normal ABSENT [facility] Comment on above: Order Comment: For i ndwelling catheters, specimen collection is acceptable on catheter day 1 and 2 only. ? Performed By: #### G ASVL #### [facility] (DEFAULT) [address] [place] [address] Blood Urine Moderate Abnormal Negative [facility] Comment on above: Order Comment: For i ndwelling catheters, specimen collection is acceptable on catheter day 1 and 2 only. ? Performed By: #### G ASVL #### [facility] (DEFAULT) [address] [place] [address] Color (U) Yellow Normal Yellow [facility] Comment on above: Order Comment: For i ndwelling catheters, specimen collection is acceptable on catheter day 1 and 2 only. ? Performed By: #### G ASVL #### [facility] (DEFAULT) [address] [place] [address]755 Glucose Ql (U) Negative Normal Negative [facility] Comment on above: Order Comment: For i ndwelling catheters, specimen collection is acceptable on catheter day 1 and 2 only. ? Performed By: #### G ASVL #### [facility] (DEFAULT) [address] [place] [address]30 Ketones Ql (U) Negative Normal Negative [facility] Comment on above: Order Comment: For i ndwelling catheters, specimen collection is acceptable on catheter day 1 and 2 only. ? Performed By: #### G ASVL #### [facility] (DEFAULT) [address] [place] [address] 11059 Leukocyte esterase Test strip Ql (U) Trace Abnormal Negative [facility] Comment on above: Order Comment: For i ndwelling catheters, specimen collection is acceptable on catheter day 1 and 2 only. ? Performed By: #### G ASVL #### [facility] (DEFAULT) [address] [place] [address] 14780 Nitrites Urine Negative Normal Negative [facility] Comment on above: Order Comment: For i ndwelling catheters, specimen collection is acceptable on catheter day 1 and 2 only. ? Performed By: #### G ASVL #### [facility] (DEFAULT) [address] [place] [address]37 pH (U) 7.0 [pH] Normal 5.0-7.0 [facility] Comment on above: Order Comment: For i ndwelling catheters, specimen collection is acceptable on catheter day 1 and 2 only. ? Performed By: #### G ASVL #### [facility] (DEFAULT) [address] [place] [address] 62959 Protein Urine 30 mg/dL Abnormal Negative [facility] Comment on above: Order Comment: For i ndwelling catheters, specimen collection is acceptable on catheter day 1 and 2 only. ? Performed By: #### G ASVL #### [facility] (DEFAULT) [address] [place] [address] 21495 RBC LM.HPF (Urine sed) [#/Area] /[HPF] Abnormal 0-2 [facility] Comment on above: Order Comment: For i ndwelling catheters, specimen collection is acceptable on catheter day 1 and 2 only. ? Performed By: #### G ASVL #### [facility] (DEFAULT) [address] [place] [address] 16483 Specific Fouke Urine 1.021 Normal 1.001-1.035 [facility] Comment on above: Order Comment: For i ndwelling catheters, specimen collection is acceptable on catheter day 1 and 2 only. ? Performed By: #### G ASVL #### [facility] (DEFAULT) [address] [place] [address] 12527 Squamous/Epithelial Cells 1/hpf = 1+ Normal 1/hpf = 1+, 2-5/hpf = 2+, 0/hpf = 0+, ABSENT [facility] Comment on above: Order Comment: For i ndwelling catheters, specimen collection is acceptable on catheter day 1 and 2 only. ? Performed By: #### G ASVL #### [facility] (DEFAULT) [address] [place] [address] 58595 Urobilinogen Urine 0.2 E.U./dL Normal 0.2 E.U/d L, 1.0 E.U/dL [facility] Comment on above: Order Comment: For i ndwelling catheters, specimen collection is acceptable on catheter day 1 and 2 only. ? Performed By: #### G ASVL #### [facility] (DEFAULT) [address] [place] [address] 15345 WBC Urine 0-5 Normal 0-5 [facility] Comment on above: Order Comment: For i ndwelling catheters, specimen collection is acceptable on catheter day 1 and 2 only. ? Performed By: #### G ASVL #### [facility] (DEFAULT) [address] [address] Appearance (U) Clear Clear [facility] Bacteria LM Ql (Urine sed) ABSENT ABSENT [facility] Color (U) Yellow Yellow [facility] Epithelial cells.squamous LM Ql (Urine sed) 1/hpf = 1+ 1/hpf = 1+, 2-5/hpf = 2+, 0/hpf = 0+, ABSENT [facility] Glucose Test strip (U) [Mass/Vol] Negative Negative [facility] Interpretation and review of laboratory results Abnormal [facility] Ketones (U) [Mass/Vol] Negative Negative [facility] Leukocyte esterase Test strip Ql (U) Trace Abnormal Negative [facility] Nitrite Ql (U) Negative Negative [facility] pH (U) 7.0 [pH] 5.0 - 7.0 [facility] Protein (U) [Mass/Vol] 30 mg/dL Abnormal Negative [facility] RBC (U) [#/Vol] Moderate Abnormal Negative [facility] RBC LM.HPF (Urine sed) [#/Area] /[HPF] Abnormal [facility] Specific gravity (U) [Rel density] 1.021 1.001 - 1.035 [facility] Urobilinogen (U) [Mass/Vol] 0.2 E.U./dL 0.2 E.U/dL, 1.0 E.U/dL [facility] WBC LM.HPF (Urine sed) [#/Area] 0-5 [facility] Bacteria identified Cx Nom ( Bld)on 11-27-2022 Bacteria identified Cx Nom (Unsp spec) NO [facility] Results may be compromised due to volume of BACT\ALERT bottle below 8mLs. The optimal blood volume is 8-10 mls per aerobic/anaerobic blood culture bottle [facility] Bacteria identified Respirat ory culture Nom (Unsp spec)Ordered By: Harinder Nathan on 11-27-2022 Bacteria identified Cx Nom (Unsp spec) Growth [facility] Bacteria identified Cx Nom (Unsp spec) Heavy Growth Common oropharyngeal microbes [facility] Microscopic observation Other stain Nom (Unsp spec) Neutrophils, None [facility] Microscopic observation Other stain Nom (Unsp spec) Contaminating bacteria and epithelials, LIGHT [facility] Microscopic observation Other stain Nom (Unsp spec) Specimen is of very poor quality and results may be compromised suggest recollection if clinically indicated [facility] CBC,PLATELETSon 11-27-2022 Hematocrit (Bld) [Volume fraction] 41.1 % Normal 39.6-48.8 [facility] Comment on above: Performed By: #### C HM7 #### [facility] (DEFAULT) [address] [address] Hemoglobin (Bld) [Mass/Vol] 13.5 g/dL Normal 13.4-16.8 [facility] Comment on above: Performed By: #### C HM7 #### [facility] (DEFAULT) [address] [address] MCV (RBC) [Entitic vol] 88.0 fL Normal 79.0-94.5 [facility] Comment on above: Performed By: #### C HM7 #### [facility] (DEFAULT) [address] [address] Mean Cell Hgb 28.9 pg Normal 26.1-33.3 [facility] Comment on above: Performed By: #### C HM7 #### [facility] (DEFAULT) [address] [address] Mean Cell Hgb Conc 32.8 g/dL Normal 31.9-36.5 [facility] Comment on above: Performed By: #### C HM7 #### [facility] (DEFAULT) [address] [place] [address]236 Platelet mean volume (Bld) [Entitic vol] 10.5 fL Normal 8.7-12.3 [facility] Comment on above: Performed By: #### C HM7 #### [facility] (DEFAULT) [address] [place] [address] Platelets (Bld) [#/Vol] 301 10*3/uL Normal 146-337 [facility] Comment on above: Performed By: #### C HM7 #### [facility] (DEFAULT) [address] [place] [address] 9[address] RBC (Bld) [#/Vol] 4.67 10*6/uL Normal 4.38-5.83 [facility] Comment on above: Performed By: #### C HM7 #### [facility] (DEFAULT) [address] [place] [address] RBC Distribution 13.5 % Normal 10.9-14.3 [facility] Comment on above: Performed By: #### C HM7 #### [facility] (DEFAULT) [address] [place] [address] WBC (Bld) [#/Vol] 12.99 10*3/uL High 3.73-10.10 [facility] Comment on above: Performed By: #### C HM7 #### [facility] (DEFAULT) [address] [place] [address] Erythrocyte distribution width (RBC) [Ratio] 13.5 % 10.9 - 14.3 % [facility] Hematocrit (Bld) [Volume fraction] 41.1 % 39.6 - 48.8 % [facility] Hemoglobin (Bld) [Mass/Vol] 13.5 g/dL 13.4 - 16.8 g/dL [facility] Interpretation and review of laboratory results Abnormal [facility] MCH (RBC) [Entitic mass] 28.9 pg 26.1 - 33.3 pg [facility] MCHC (RBC) [Mass/Vol] 32.8 g/dL 31.9 - 36.5 g/dL [facility] MCV (RBC) [Entitic vol] 88.0 fL 79.0 - 94.5 fL [facility] Platelet mean volume (Bld) [Entitic vol] 10.5 fL 8.7 - 12.3 fL [facility] Platelets (Bld) [#/Vol] 301 10*3/uL 146 - 337 K/uL [facility] RBC (Bld) [#/Vol] 4.67 10*6/uL [facility] WBC (Bld) [#/Vol] 12.99 10*3/uL High 3.73 - 10 .10 K/uL [facility] CHEM 7 (LYTES,BUN,CREA,GLUC) on 11-27-2022 Anion gap [Moles/Vol] 13 mmol/L Normal 7-17 [facility] Comment on above: Performed By: #### Snehal ARREDONDO [id number] #### [facility] (DEFAULT) [address] [place] [address] Chloride [Moles/Vol] 107 mmol/L Normal 98-108 [facility] Comment on above: Performed By: #### Snehal ARREDONDO [id number] #### [facility] (DEFAULT) [address] [place] [address]16[address] CO2 [Moles/Vol] 20 mmol/L Low 21-31 [facility] Comment on above: Performed By: #### Snehal ARREDONDO [id number] #### [facility] (DEFAULT) [address] [place] [address] 65868 Creatinine [Mass/Vol] 0.90 mg/dL Normal 0.70-1.30 [facility] Comment on above: Performed By: #### Snehal ARREDONDO [id number] #### [facility] (DEFAULT) [address] [place] [address]21 GFR/1.73 sq M.predicted among non-blacks MDRD (S/P/Bld) [Vol rate/Area] 87 mL/min/{1.73_m2} Normal >=60 [facility] Comment on above: Result Comment: Repo rted eGFR is based on the CKD-EPI 2020 equation using creatinine, age, and sex. Performed By: #### Snehal [id number] #### [facility] (DEFAULT) [address] [place] [address] Glucose [Mass/Vol] 106 mg/dL High 70-99 [facility] Comment on above: Performed By: #### Snehal ARREDONDO [id number] #### [facility] (DEFAULT) [address] [place] [address] 764[address] Osmolality [Osmolality] 299 mosm/kg Normal 278-305 [facility] Comment on above: Performed By: #### Snehal ARREDONDO [id number] #### [facility] (DEFAULT) [address] [place] [address] Potassium [Moles/Vol] 3.4 mmol/L Low 3.5-5.0 [facility] Comment on above: Performed By: #### Snehal ARREDONDO [id number] #### [facility] (DEFAULT) [address] [place] [address]97[address] Sodium [Moles/Vol] 137 mmol/L Normal 135-145 [facility] Comment on above: Performed By: #### Snehal ARREDONDO [id number] #### [facility] (DEFAULT) [address] [place] [address] 91483 Urea nitrogen [Mass/Vol] 48 mg/dL High 7-25 [facility] Comment on above: Performed By: #### Snehal ARREDONDO [id number] #### [facility] (DEFAULT) [address] [place] [address] Urea nitrogen/Creatinine [Mass ratio] 53 mg/mg Normal [facility] Comment on above: Performed By: #### Snehal ARREDONDO [id number] #### [facility] (DEFAULT) [address] [place] [address] Anion gap [Moles/Vol] 13 mmol/L 7 - 17 mmol/L [facility] Chloride [Moles/Vol] 107 mmol/L 98 - 10 8 mmol/L [facility] CO2 [Moles/Vol] 20 mmol/L Low 21 - 31 mmol/L [facility] Creatinine [Mass/Vol] 0.90 mg/dL 0.70 - 1.30 mg/dL [facility] GFR/1.73 sq M.predicted CKD-EPI (S/P/Bld) [Vol rate/Area] 87 - PINF [facility] Comment on above: Reported eGFR is bas ed on the CKD-EPI 2020 equation using creatinine, age, and sex. Glucose [Mass/Vol] 106 mg/dL High 70 - 99 mg/dL [facility] Interpretation and review of laboratory results Abnormal [facility] Osmolality Calc [Osmolality] 299 [facility] Potassium [Moles/Vol] 3.4 mmol/L Low 3.5 - 5.0 mmol/L [facility] Sodium [Moles/Vol] 137 mmol/L 135 - 145 mmol/L [facility] Urea nitrogen [Mass/Vol] 48 mg/dL High 7 - 25 mg/dL [facility] Urea nitrogen/Creatinine [Mass ratio] 53 mg/mg [facility] CBC,PLATELETSon 11-26-2022 Hematocrit (Bld) [Volume fraction] 41.4 % Normal 39.6-48.8 [facility] Comment on above: Performed By: #### U R #### [facility] (DEFAULT) [address] [place] [address] Hemoglobin (Bld) [Mass/Vol] 13.9 g/dL Normal 13.4-16.8 [facility] Comment on above: Performed By: #### U R #### [facility] (DEFAULT) [address] [place] [address] MCV (RBC) [Entitic vol] 86.8 fL Normal 79.0-94.5 [facility] Comment on above: Performed By: #### U R #### [facility] (DEFAULT) [address] [address] Mean Cell Hgb 29.1 pg Normal 26.1-33.3 [facility] Comment on above: Performed By: #### U R #### [facility] (DEFAULT) [address] [address] Mean Cell Hgb Conc 33.6 g/dL Normal 31.9-36.5 [facility] Comment on above: Performed By: #### U R #### [facility] (DEFAULT) [address] [address] Platelet mean volume (Bld) [Entitic vol] 10.7 fL Normal 8.7-12.3 [facility] Comment on above: Performed By: #### U R #### [facility] (DEFAULT) [address] [address] Platelets (Bld) [#/Vol] 297 10*3/uL Normal 146-337 [facility] Comment on above: Performed By: #### U R #### [facility] (DEFAULT) [address] [address] RBC (Bld) [#/Vol] 4.77 10*6/uL Normal 4.38-5.83 [facility] Comment on above: Performed By: #### U R #### [facility] (DEFAULT) [address] [address] RBC Distribution 13.9 % Normal 10.9-14.3 [facility] Comment on above: Performed By: #### U R #### [facility] (DEFAULT) [address] [address] WBC (Bld) [#/Vol] 16.02 10*3/uL High 3.73-10.10 [facility] Comment on above: Performed By: #### U R #### [facility] (DEFAULT) [address] [place] [address] Erythrocyte distribution width (RBC) [Ratio] 13.9 % 10.9 - 14.3 % [facility] Hematocrit (Bld) [Volume fraction] 41.4 % 39.6 - 48.8 % [facility] Hemoglobin (Bld) [Mass/Vol] 13.9 g/dL 13.4 - 16.8 g/dL [facility] Interpretation and review of laboratory results Abnormal [facility] MCH (RBC) [Entitic mass] 29.1 pg 26.1 - 33.3 pg [facility] MCHC (RBC) [Mass/Vol] 33.6 g/dL 31.9 - 36.5 g/dL [facility] MCV (RBC) [Entitic vol] 86.8 fL 79.0 - 94.5 fL [facility] Platelet mean volume (Bld) [Entitic vol] 10.7 fL 8.7 - 12.3 fL [facility] Platelets (Bld) [#/Vol] 297 10*3/uL 146 - 337 K/uL [facility] RBC (Bld) [#/Vol] 4.77 10*6/uL [facility] WBC (Bld) [#/Vol] 16.02 10*3/uL High 3.73 - 10 .10 K/uL [facility] CHEM 7 (LYTES,BUN,CREA,GLUC) on 11-26-2022 Anion gap [Moles/Vol] 13 mmol/L Normal 7-17 [facility] Comment on above: Performed By: #### U R #### [facility] (DEFAULT) [address] [place] [address] Chloride [Moles/Vol] 108 mmol/L Normal 98-108 [facility] Comment on above: Performed By: #### U R #### [facility] (DEFAULT) [address] [place] [address] CO2 [Moles/Vol] 21 mmol/L Normal 21-31 [facility] Comment on above: Performed By: #### U R #### [facility] (DEFAULT) [address] [place] [address] Creatinine [Mass/Vol] 0.97 mg/dL Normal 0.70-1.30 [facility] Comment on above: Performed By: #### U R #### [facility] (DEFAULT) [address] [place] [address] GFR/1.73 sq M.predicted among non-blacks MDRD (S/P/Bld) [Vol rate/Area] 79 mL/min/{1.73_m2} Normal >=60 [facility] Comment on above: Result Comment: Repo rted eGFR is based on the CKD-EPI 2020 equation using creatinine, age, and sex. Performed By: #### U R #### [facility] (DEFAULT) [address] [place] [address] Glucose [Mass/Vol] 120 mg/dL High 70-99 [facility] Comment on above: Performed By: #### U R #### [facility] (DEFAULT) [address] [place] [address] Osmolality [Osmolality] 302 mosm/kg Normal 278-305 [facility] Comment on above: Performed By: #### U R #### [facility] (DEFAULT) [address] [place] [address] Potassium [Moles/Vol] 3.5 mmol/L Normal 3.5-5.0 [facility] Comment on above: Performed By: #### U R #### [facility] (DEFAULT) [address] [place] [address] Sodium [Moles/Vol] 138 mmol/L Normal 135-145 [facility] Comment on above: Performed By: #### U R #### [facility] (DEFAULT) [address] [place] [address] Urea nitrogen [Mass/Vol] 48 mg/dL High 7-25 [facility] Comment on above: Performed By: #### U R #### [facility] (DEFAULT) [address] [place] [address] Urea nitrogen/Creatinine [Mass ratio] 49 mg/mg Normal [facility] Comment on above: Performed By: #### U R #### [facility] (DEFAULT) [address] [place] [address] Anion gap [Moles/Vol] 13 mmol/L 7 - 17 mmol/L [facility] Chloride [Moles/Vol] 108 mmol/L 98 - 10 8 mmol/L [facility] CO2 [Moles/Vol] 21 mmol/L 21 - 31 mmol/L [facility] Creatinine [Mass/Vol] 0.97 mg/dL 0.70 - 1.30 mg/dL [facility] GFR/1.73 sq M.predicted CKD-EPI (S/P/Bld) [Vol rate/Area] 79 - PINF [facility] Comment on above: Reported eGFR is bas ed on the CKD-EPI 2020 equation using creatinine, age, and sex. Glucose [Mass/Vol] 120 mg/dL High 70 - 99 mg/dL [facility] Interpretation and review of laboratory results Abnormal [facility] Osmolality Calc [Osmolality] 302 [facility] System Potassium [Moles/Vol] 3.5 mmol/L 3.5 - 5.0 mmol/L [facility] Sodium [Moles/Vol] 138 mmol/L 135 - 145 mmol/L [facility] Urea nitrogen [Mass/Vol] 48 mg/dL High 7 - 25 mg/dL [facility] Urea nitrogen/Creatinine [Mass ratio] 49 mg/mg [facility] CONTINUOUS CARDIAC MONITORIN G STRIPon 11-26-2022 [facility] CBC,PLATELETSon 11-25-2022 Erythrocyte distribution width (RBC) [Ratio] 14.2 % 10.9 - 14.3 % [facility] Hematocrit (Bld) [Volume fraction] 42.8 % 39.6 - 48.8 % [facility] Hemoglobin (Bld) [Mass/Vol] 14.0 g/dL 13.4 - 16.8 g/dL [facility] Interpretation and review of laboratory results Abnormal [facility] MCH (RBC) [Entitic mass] 29.3 pg 26.1 - 33.3 pg [facility] MCHC (RBC) [Mass/Vol] 32.7 g/dL 31.9 - 36.5 g/dL [facility] MCV (RBC) [Entitic vol] 89.5 fL 79.0 - 94.5 fL [facility] Platelet mean volume (Bld) [Entitic vol] 10.6 fL 8.7 - 12.3 fL [facility] Platelets (Bld) [#/Vol] 251 10*3/uL 146 - 337 K/uL [facility] RBC (Bld) [#/Vol] 4.78 10*6/uL [facility] WBC (Bld) [#/Vol] 15.18 10*3/uL High 3.73 - 10 .10 K/uL [facility] Hematocrit (Bld) [Volume fraction] 42.8 % Normal 39.6-48.8 [facility] Comment on above: Performed By: #### G ASVL #### [facility] (DEFAULT) [address] [place] [address] Hemoglobin (Bld) [Mass/Vol] 14.0 g/dL Normal 13.4-16.8 [facility] Comment on above: Performed By: #### G ASVL #### [facility] (DEFAULT) [address] [place] [address] MCV (RBC) [Entitic vol] 89.5 fL Normal 79.0-94.5 [facility] Comment on above: Performed By: #### G ASVL #### [facility] (DEFAULT) [address] [place] [address] Mean Cell Hgb 29.3 pg Normal 26.1-33.3 [facility] Comment on above: Performed By: #### G ASVL #### [facility] (DEFAULT) [address] [address] Mean Cell Hgb Conc 32.7 g/dL Normal 31.9-36.5 [facility] Comment on above: Performed By: #### G ASVL #### [facility] (DEFAULT) [address] [address] RBC (Bld) [#/Vol] 4.78 10*6/uL Normal 4.38-5.83 [facility] Comment on above: Performed By: #### G ASVL #### [facility] (DEFAULT) [address] [address] RBC Distribution 14.2 % Normal 10.9-14.3 [facility] Comment on above: Performed By: #### G ASVL #### [facility] (DEFAULT) [address] [address] WBC (Bld) [#/Vol] 15.18 10*3/uL High 3.73-10.10 [facility] Comment on above: Performed By: #### G ASVL #### [facility] (DEFAULT) [address] [address] CREATININE SERUMon 3 Creatinine [Mass/Vol] 0.83 mg/dL Normal 0.70-1.30 [facility] Comment on above: Performed By: #### L [id number], [id number] #### [facility] (DEFAULT) [address] [address] GFR/1.73 sq M.predicted among non-blacks MDRD (S/P/Bld) [Vol rate/Area] 89 mL/min/{1.73_m2} Normal >=60 [facility] Comment on above: Result Comment: Repo rted eGFR is based on the CKD-EPI 2020 equation using creatinine, age, and sex. Performed By: #### L [id number], [id number] #### [facility] (DEFAULT) [address] [address] Creatinine [Mass/Vol] 0.83 mg/dL 0.70 - 1.30 mg/dL [facility] GFR/1.73 sq M.predicted CKD-EPI (S/P/Bld) [Vol rate/Area] 89 - PINF [facility] Comment on above: Reported eGFR is bas ed on the CKD-EPI 2020 equation using creatinine, age, and sex. Interpretation and review of laboratory results Normal [facility] LOWER RESPIRATORY CULTURE, B ACTERIALon 11-25-2022 Bacteria identified Cx Nom (Unsp spec) Normal [facility] Comment on above: Result Comment: Grow 4470 Heavy Growth Common oropharyngeal microbes Performed By: #### G ASVL #### [facility] (DEFAULT) [address] [address] Microscopic observation Gram stain Nom (Unsp spec) Normal [facility] Comment on above: Result Comment: Neut rophils, None Contaminating bacteria and epithelials, LIGHT Specimen is of very poor quality and results may be compromised suggest recollection if clinically indicated Performed By: #### G ASVL #### [facility] (DEFAULT) [address] [address] PLATELET COUNTon 11-25-2022 Platelet mean volume (Bld) [Entitic vol] 10.6 fL Normal 8.7-12.3 [facility] Comment on above: Performed By: #### L [id number], [id number] #### [facility] (DEFAULT) [address] [address] Performed By: #### G ASVL #### [facility] (DEFAULT) [address] [address] Platelets (Bld) [#/Vol] 251 10*3/uL Normal 146-337 [facility] Comment on above: Performed By: #### L [id number], [id number] #### [facility] (DEFAULT) [address] [place] [address] Performed By: #### G ASVL #### [facility] (DEFAULT) [address] [place] [address] Interpretation and review of laboratory results Normal [facility] Platelet mean volume (Bld) [Entitic vol] 10.6 fL 8.7 - 12.3 fL [facility] Platelets (Bld) [#/Vol] 251 10*3/uL 146 - 337 K/uL [facility] PROCALCITONINon 11-25-2022 Interpretation and review of laboratory results Normal [facility] Procalcitonin [Mass/Vol] 0.24 ng/mL NINF - 0.50 ng/mL [facility] Comment on above: Procalcitonin is an FDA-approved assay to help manage antibiotic treatment in patients with sepsis/septic shock and lower respiratory tract infections. Specifically, trending procalcitonin in these situations can be used to reduce the duration of antibiotics. Please refer to the Procalcitonin Guide on the Antimicrobial Stewardship Webpage for more guidance on how to use and trend procalcitonin in various clinical settings. https://onesource.[email or web address]/departments/Pharmacy/_layouts/15/Wopi Frame.aspx?sourcedoc=/departments/Pharmacy/Documents/GDLProcalcit onin.docx&action=default&DefaultItemOpen=1 Two common cutoffs associated with bacterial infections are as follows. Respiratory tract infections: >0.25 ng/mL Sepsis/septic shock: >0.5 ng/mL Procalcitonin should not be used alone as a diagnostic tool, however. All procalcitonin results should be interpreted in association with the patients clinical condition and all laboratory findings. [facility] Procalcitonin 0.24 ng/mL Normal <0.50 [facility] Comment on above: Result Comment: Proc alcitonin is an FDA-approved assay to help manage antibiotic treatment in patients with sepsis/septic shock and lower respiratory tract infections. Specifically, trending procalcitonin in these situations can be used to reduce the duration of antibiotics. Please refer to the Procalcitonin Guide on the Antimicrobial Stewardship Webpage for more guidance on how to use and trend procalcitonin in various clinical settings. https://[email or web address]/departments/Pharmacy/_layouts/15/Wopi Frame.aspx?sourcedoc=/departments/Pharmacy/Documents/GDLProcalcit onin.docx&action=default&DefaultItemOpen=1 Two common cutoffs associated with bacterial infections are as follows. Respiratory tract infections: >0.25 ng/mL Sepsis/septic shock: >0.5 ng/mL Procalcitonin should not be used alone as a diagnostic tool, however. All procalcitonin results should be interpreted in association with the patients clinical condition and all laboratory findings. Performed By: #### L [id number], [id number] #### [facility] (DEFAULT) [address] [place] [address] Portable XR Chest Viewson IMPRESSION: Patchy atelectasis at the left base. No other abnormality. OLOGY EXAM: XR CHEST PORTABLE, 11/25/2022 13:29 PM COMPARISON: November 24, 2022 CLINICAL INDICATIONS: suspected PNA, follow up CXR RELEVANT CLINICAL HISTORY: FINDINGS: (Adequate technique) Implanted Devices: None Thorax: Left basilar patchy atelectasis. RADIOLOGY Jin Caraballo MD - 11/25/2022 EXAM: XR CHEST PORTABLE, 11/25/2022 13:29 PM COMPARISON: November 24, 2022 CLINICAL INDICATIONS: suspected PNA, follow up CXR RELEVANT CLINICAL HISTORY: FINDINGS: (Adequate technique) Implanted Devices: None Thorax: Left basilar patchy atelectasis. IMPRESSION IMPRESSION: Patchy atelectasis at the left base. No other abnormality. [facility] Radiology Study observation (narrative) [facility] Portable XR Chest ViewsOrder ed By: Jin Caraabllo on 11-25-2022 [facility] Work Phone: SCREEN: MRSA/MSSAOrdered By: Margo Addison on 11-25-2022 Interpretation and review of laboratory results Normal [facility] Methicillin Resistant S. Aureus By Pcr Negative Negative [facility] Staphylococcus Aureus By Pcr Negative Negative [facility] This test was perfor med using a real time PCR assay. Results should be interpreted in conjunction with other clinical and laboratory findings. A positive result does not necessarily indicate the presence of viable organism. This test should not be used as a test of cure. For E-swab specimens, this test was developed and its performance characteristics determined by the Clinical Microbiology Laboratory at The [facility]. It has not been cleared or approved by the FDA.The laboratory is regulated under CLIA as qualified to perform high-complexity testing. This test is used for clinical purposes. It should not be regarded as investigational or for research. [facility] SCREEN: MRSA/MSSAon 11-25-19 Methicillin Resistant S. Aureus By Pcr Negative Normal Negative [facility] Comment on above: Order Comment: Colle ct with an ESWAB - Anterior Nares for MRSA + MSSAThis test was performed using a real time PCR assay. Results should be interpreted in conjunction with other clinical and laboratory findings. A positive result does not necessarily indicate the presence of viable organism. This test should not be used as a test of cure. For E-swab specimens, this test was developed and its performance characteristics determined by the Clinical Microbiology Laboratory at [facility]. It has not been cleared or approved by the FDA.The laboratory is regulated under CLIA as qualified to perform high-complexity testing. This test is used for clinical purposes. It should not be regarded as investigational or for research. Performed By: #### G ASVL #### [facility] (DEFAULT) [address] [place] [address] Staphylococcus Aureus By Pcr Negative Normal Negative [facility] Comment on above: Order Comment: Colle ct with an ESWAB - Anterior Nares for MRSA + MSSAThis test was performed using a real time PCR assay. Results should be interpreted in conjunction with other clinical and laboratory findings. A positive result does not necessarily indicate the presence of viable organism. This test should not be used as a test of cure. For E-swab specimens, this test was developed and its performance characteristics determined by the Clinical Microbiology Laboratory at [facility]. It has not been cleared or approved by the FDA.The laboratory is regulated under CLIA as qualified to perform high-complexity testing. This test is used for clinical purposes. It should not be regarded as investigational or for research. Performed By: #### G ASVL #### [facility] (DEFAULT) [address] [place] [address] VENOUS BLOOD GAS PLUS LACTAT Dominik 11-25-2022 Base Excess -3.1 mmol/L Low -3.0-3.0 [facility] Comment on above: Performed By: #### G ASVL #### [facility] (DEFAULT) [address] [place] [address] HCO3 (Bld) [Moles/Vol] 21 mmol/L Low 22-29 [facility] Comment on above: Performed By: #### G ASVL #### [facility] (DEFAULT) [address] [place] [address] Lactate, Whole Blood 1.3 mmol/L Normal 0.5-1.6 [facility] Comment on above: Performed By: #### G ASVL #### [facility] (DEFAULT) [address] [place] [address] PCO2 30 mm Hg Low 36-52 [facility] Comment on above: Performed By: #### G ASVL #### [facility] (DEFAULT) [address] [place] [address] pH (Bld) 7.45 [pH] High 7.32-7.43 [facility] Comment on above: Performed By: #### G ASVL #### [facility] (DEFAULT) [address] [place] [address] PO2 38 mm Hg Normal [facility] Comment on above: Result Comment: Veno us pO2 is not recommended for the evaluation of oxygen status, clinical correlation is recommended. Performed By: #### G ASVL #### [facility] (DEFAULT) [address] [place] [address] sO2 69 % Low 70-80 [facility] Comment on above: Performed By: #### G ASVL #### [facility] (DEFAULT) [address] [place] [address] Specimen type Nom (Spec) Venous Normal [facility] Comment on above: Performed By: #### G ASVL #### [facility] (DEFAULT) [address] [place] [address] Base excess Calc (Bld) [Moles/Vol] -3.1000 mmol/L Low -3.0 - 3.0 mmol/L [facility] CO2 (Bld) [Partial pressure] 30 mm[Hg] Low [facility] HCO3 (Bld) [Moles/Vol] 21 mmol/L Low 22 - 29 mmol/L [facility] Interpretation and review of laboratory results Abnormal [facility] Lactate [Moles/Vol] 1.3 mmol/L 0.5 - 1. 6 mmol/L [facility] Oxygen (Bld) [Partial pressure] 38 mm[Hg] mm Hg [facility] Comment on above: Venous pO2 is not re commended for the evaluation of oxygen status, clinical correlation is recommended. Oxygen saturation in Blood 69 % Low 70 - 80 % [facility] pH (Bld) 7.45 [pH] High 7.32 - 7.43 [facility] Specimen source Nom (Unsp spec) Venous [facility] XR CHEST PORTABLEon 11-25-19 XR CHEST PORTABLE EXAM: XR CHEST PORTABLE, 11/25/2022 13:29 PM COMPARISON: November 24, 2022 CLINICAL INDICATIONS: suspected PNA, follow up CXR RELEVANT CLINICAL HISTORY: FINDINGS: (Adequate technique) Implanted Devices: None Thorax: Left basilar patchy atelectasis. IMPRESSION: Patchy atelectasis at the left base. No other abnormality. Normal [facility] CREATININE SERUMon 3 Creatinine [Mass/Vol] 0.68 mg/dL Low 0.70-1.30 [facility] Comment on above: Performed By: #### G ASVL #### [facility] (DEFAULT) [address] [place] [address] eGFR, CKD-EPI, Male > Normal >=60 [facility] Comment on above: Result Comment: Repo rted eGFR is based on the CKD-EPI 2020 equation using creatinine, age, and sex. Performed By: #### G ASVL #### [facility] (DEFAULT) [address] [place] [address] Creatinine [Mass/Vol] 0.68 mg/dL Low 0.70 - 1.30 mg/dL [facility] GFR/1.73 sq M.predicted CKD-EPI (S/P/Bld) [Vol rate/Area] - PINF [facility] Comment on above: Reported eGFR is bas ed on the CKD-EPI 2020 equation using creatinine, age, and sex. Interpretation and review of laboratory results Abnormal [facility] No Panel Informationon 11-24 [facility] Portable XR Chest Viewson IMPRESSION: No acute cardiopulmonary disease OLOGY EXAM: XR CHEST PORTABLE, 11/24/2022 10:59 AM COMPARISON: 11/22/2022 CLINICAL INDICATIONS: concern for PNA, cough RELEVANT CLINICAL HISTORY: FINDINGS: (Adequate technique) Implanted Devices: None Thorax: No acute findings in the chest. RADIOLOGY Alis Figueroa MB [facility] - 11/24/2022 EXAM: XR CHEST PORTABLE, 11/24/2022 10:59 AM COMPARISON: 11/22/2022 CLINICAL INDICATIONS: concern for PNA, cough RELEVANT CLINICAL HISTORY: FINDINGS: (Adequate technique) Implanted Devices: None Thorax: No acute findings in the chest. IMPRESSION IMPRESSION: No acute cardiopulmonary disease [facility] Radiology Study observation (narrative) [facility] Portable XR Chest ViewsOrder ed By: Alis Figueroa on 11-24-2022 [facility] Work Phone: TOXICOLOGY SCREEN URINE - UD RGOrdered By: Gerardo Sutton on 11-24-2022 Barbiturates Ql (U) Negative [facility] Cannabinoids Screen Ql (U) Negative [facility] Drugs identified Screen Nom (U) Negative Negative [facility] Interpretation and review of laboratory results Normal [facility] For Medical Purposes Only. Nonforensic screen results are considered presumptive and no confirmatory testing will follow. Drugs are detected by immunoassay or Liquid Chromatography Mass Spectrometry (LC-MS/MS). The LC-MS/MS test was developed and its performance characteristics determined by the Toxicology Laboratory at [facility]. It has not been cleared or approved by the FDA. The laboratory is regulated under CLIA as qualified to perform high-complexity testing. This test is used for clinical purposes and should not be regarded as investigational or for research. The following drugs with their lowest level of detection in ng/ml(LOD) are included in this screen: 6 Monoacetylmorphine(300) , 7 Aminoflunitrazepam(25), 7 Aminoclonazepam(50),7 hydroxymitragynine (100),Alphahydroxymidaz olam (200), Alphahydrozyalprazolam( 200), Alprazolam(50), Amitriptyline(50), Amphetamine(250), Atenolol(500),Benzoylec gonine(50), Buprenorphine(100), Bupropion(25),Caffeine( [address]),Chlordiazepoxide (50), Chlorpheniramine(100), Chlorpromazine(50), Citalopram(100), Clonazepam(200), Cocaine(25),Codeine(200 ), Cotinine(500),Desiprami ne(50), Desmethyldoxepin(100), Dextromethorphan(100), Diazepam(100), Dihydrocodeine(100), Diltazem(50), Diphenhydramine(100),Do xepin(100),EDDP/methado ne(100), Ephedrine/Pseudoephedri ne(100),Fentanyl(25),Fl unitrazepam(100),Fluoxe gwen(200), Flurazepam(50),Gabapent in(1500), Haloperidol(25), Hydrocodone(100), Hydromorphone(200), Imipramine(50), Ketamine(25), Lidocaine(25),Lorazepam (100), Lysergide(LSD)(25),Mapr otiline(200), MDA(250), MDMA(250), Meperidine(50),Midazola m (200),Methadone(50), Methamphetamine(500), Methylphenidate(50), Metoprolol(50), Morphine(200),Nalbuphin e(50), Naloxone(200), Norbuprenorphine(300), Nordiazepam(100), Norfentanyl(50),Noroxyc odone (100), Norpropoxyphene(50), Nortriptyline(50), Olanzapine(200),Oxazepa m(200),Oxycodone(100),O xymorphone(200), Phencyclidine(PCP)(25), Pheniramine(25), Pregabalin(1500), Promethazine(50), Propoxyphene(100), Propanolol(50), Quetiapine(25), Quinidine(500), Ranitidine(500), Risperidone(100), Sertraline(50),Temazepa m(100), Thioridazine(100), Tramadol(50), Trazodone(25), Triazolam(100), Trifluoperazine (100),Venlafaxine(50), Verapamil(100), Zolpidem(200) [facility] XR CHEST PORTABLEon 11-24-19 23 XR CHEST PORTABLE EXAM: XR CHEST PORTABLE, 11/24/2022 10:59 AM COMPARISON: 11/22/2022 CLINICAL INDICATIONS: concern for PNA, cough RELEVANT CLINICAL HISTORY: FINDINGS: (Adequate technique) Implanted Devices: None Thorax: No acute findings in the chest. IMPRESSION: No acute cardiopulmonary disease Normal [facility] C REACTIVE PROTEINon 023 CRP [Mass/Vol] 116.72 mg/L High <10.00 [facility] Comment on above: Performed By: #### X M #### [facility] (DEFAULT) [address] [address] C REACTIVE PROTEINOrdered By : Tevin Mukherjee on 11-23-2022 CRP High sensitivity method [Mass/Vol] 116.72 mg/L High NINF - 10.00 mg/L [facility] Interpretation and review of laboratory results Abnormal [facility] CBC,PLATELETSon 11-23-2022 Hematocrit (Bld) [Volume fraction] 42.3 % Normal 39.6-48.8 [facility] Comment on above: Performed By: #### F IB, [id number] #### [facility] (DEFAULT) [address] [address] Hemoglobin (Bld) [Mass/Vol] 14.2 g/dL Normal 13.4-16.8 [facility] Comment on above: Performed By: #### F IB, [id number] #### [facility] (DEFAULT) [address] [address] MCV (RBC) [Entitic vol] 86.5 fL Normal 79.0-94.5 [facility] Comment on above: Performed By: #### F IB, [id number] #### [facility] (DEFAULT) [address] [address] Mean Cell Hgb 29.0 pg Normal 26.1-33.3 [facility] Comment on above: Performed By: #### F IB, [id number] #### [facility] (DEFAULT) [address] [place] [address] Mean Cell Hgb Conc 33.6 g/dL Normal 31.9-36.5 [facility] Comment on above: Performed By: #### F IB, [id number] #### [facility] (DEFAULT) [address] [place] [address] Platelet mean volume (Bld) [Entitic vol] 9.9 fL Normal 8.7-12.3 [facility] Comment on above: Performed By: #### F IB, [id number] #### [facility] (DEFAULT) [address] [address] Platelets (Bld) [#/Vol] 226 10*3/uL Normal 146-337 [facility] Comment on above: Performed By: #### F IB, [id number] #### [facility] (DEFAULT) [address] [place] [address] RBC (Bld) [#/Vol] 4.89 10*6/uL Normal 4.38-5.83 [facility] Comment on above: Performed By: #### F IB, [id number] #### [facility] (DEFAULT) [address] [address] RBC Distribution 13.9 % Normal 10.9-14.3 [facility] Comment on above: Performed By: #### F IB, [id number] #### [facility] (DEFAULT) [address] [address] WBC (Bld) [#/Vol] 14.44 10*3/uL High 3.73-10.10 [facility] Comment on above: Performed By: #### F IB, [id number] #### [facility] (DEFAULT) [address] [place] [address] Erythrocyte distribution width (RBC) [Ratio] 13.9 % 10.9 - 14.3 % [facility] Hematocrit (Bld) [Volume fraction] 42.3 % 39.6 - 48.8 % [facility] Hemoglobin (Bld) [Mass/Vol] 14.2 g/dL 13.4 - 16.8 g/dL [facility] Interpretation and review of laboratory results Abnormal [facility] MCH (RBC) [Entitic mass] 29.0 pg 26.1 - 33.3 pg [facility] MCHC (RBC) [Mass/Vol] 33.6 g/dL 31.9 - 36.5 g/dL [facility] MCV (RBC) [Entitic vol] 86.5 fL 79.0 - 94.5 fL [facility] Platelet mean volume (Bld) [Entitic vol] 9.9 fL 8.7 - 12.3 fL [facility] Platelets (Bld) [#/Vol] 226 10*3/uL 146 - 337 K/uL [facility] RBC (Bld) [#/Vol] 4.89 10*6/uL [facility] WBC (Bld) [#/Vol] 14.44 10*3/uL High 3.73 - 10 .10 K/uL [facility] CHEM 7 (LYTES,BUN,CREA,GLUC) on 11-23-2022 Anion gap [Moles/Vol] 13 mmol/L Normal 7-17 [facility] Comment on above: Performed By: #### X M #### [facility] (DEFAULT) [address] [place] [address] Chloride [Moles/Vol] 106 mmol/L Normal 98-108 [facility] Comment on above: Performed By: #### X M #### [facility] (DEFAULT) [address] [place] [address] CO2 [Moles/Vol] 21 mmol/L Normal 21-31 [facility] Comment on above: Performed By: #### X M #### [facility] (DEFAULT) [address] [place] [address] Creatinine [Mass/Vol] 0.95 mg/dL Normal 0.70-1.30 [facility] Comment on above: Performed By: #### X M #### [facility] [facility] ([facility] [address] [place] [address] 42021 GFR/1.73 sq M.predicted among non-blacks MDRD (S/P/Bld) [Vol rate/Area] 81 mL/min/{1.73_m2} Normal >=60 [facility] Comment on above: Result Comment: Repo rted eGFR is based on the CKD-EPI 2020 equation using creatinine, age, and sex. Performed By: #### X M #### [facility] (DEFAULT) [address] [place] [address] 27401 Glucose [Mass/Vol] 126 mg/dL High 70-99 [facility] Comment on above: Performed By: #### X M #### [facility] (DEFAULT) [address] [place] [address] 24805 Osmolality [Osmolality] 294 mosm/kg Normal 278-305 [facility] Comment on above: Performed By: #### X M #### [facility] (DEFAULT) [address] [place] [address] 34523 Potassium [Moles/Vol] 3.4 mmol/L Low 3.5-5.0 [facility] Comment on above: Performed By: #### X M #### [facility] (DEFAULT) [address] [place] [address] 37138 Sodium [Moles/Vol] 137 mmol/L Normal 135-145 [facility] Comment on above: Performed By: #### X M #### [facility] (DEFAULT) [address] [place] [address] 60853 Urea nitrogen [Mass/Vol] 29 mg/dL High 7-25 [facility] Comment on above: Performed By: #### X M #### [facility] (DEFAULT) [address] [place] [address] 80831 Urea nitrogen/Creatinine [Mass ratio] 31 mg/mg Normal [facility] Comment on above: Performed By: #### X M #### [facility] (DEFAULT) [address] [place] [address] Anion gap [Moles/Vol] 13 mmol/L 7 - 17 mmol/L [facility] Chloride [Moles/Vol] 106 mmol/L 98 - 10 8 mmol/L [facility] CO2 [Moles/Vol] 21 mmol/L 21 - 31 mmol/L [facility] Creatinine [Mass/Vol] 0.95 mg/dL 0.70 - 1.30 mg/dL [facility] GFR/1.73 sq M.predicted CKD-EPI (S/P/Bld) [Vol rate/Area] 81 - PINF [facility] Comment on above: Reported eGFR is bas ed on the CKD-EPI 2020 equation using creatinine, age, and sex. Glucose [Mass/Vol] 126 mg/dL High 70 - 99 mg/dL [facility] Interpretation and review of laboratory results Abnormal [facility] Osmolality Calc [Osmolality] 294 [facility] Potassium [Moles/Vol] 3.4 mmol/L Low 3.5 - 5.0 mmol/L [facility] Sodium [Moles/Vol] 137 mmol/L 135 - 145 mmol/L [facility] Urea nitrogen [Mass/Vol] 29 mg/dL High 7 - 25 mg/dL [facility] Urea nitrogen/Creatinine [Mass ratio] 31 mg/mg [facility] CONTINUOUS CARDIAC MONITORIN G STRIPon 11-23-2022 [facility] EXTRA MICROon 11-23-2022 [facility] FLUAV and FLUBV Ag IA.rapid Nom (Unsp spec)on 11-23-2022 FLUAV Ag IA.rapid Ql (Nph) Not detected Not Detected [facility] FLUBV Ag IA.rapid Ql (Nph) Not detected Not Detected [facility] Interpretation and review of laboratory results Normal [facility] This test utilizes isothermal nucleic amplification technology for the differential qualitative detection of influenza A and influenza B viral nucleic acids. [facility] INFLUENZA A/B RAPID MOLECULA Vlad 11-23-2022 Influenza A, Molecular Not detected Normal Not Detected [facility] Comment on above: Order Comment: This test utilizes isothermal nucleic amplification technology for the differential qualitative detection of influenza A and influenza B viral nucleic acids. Performed By: #### C [id number] #### [facility] (DEFAULT) [address] [place] [address] 30017 Influenza B, Molecular Not detected Normal Not Detected [facility] Comment on above: Order Comment: This test utilizes isothermal nucleic amplification technology for the differential qualitative detection of influenza A and influenza B viral nucleic acids. Performed By: #### C [id number] #### [facility] (DEFAULT) [address] [place] [address] 55553 SARS-COV-2 RAPIDon SARS-CoV-2 (COVID-19) RNA NATHANIEL+probe Ql (Unsp spec) Not detected Normal NOT DETECTED [facility] Comment on above: Order Comment: Use r jesus, foam, polyester or flocked swabs to collect a nasopharyngeal specimen. After collection, fold over the open end of the collection sleeve and seal with patient lab label, double bag in biohazard bag, and transport to the lab JOSÉ LUIS, no later than 60 minutes from collection. Collection must be done while wearing N-95 mask, eye protection, gown and gloves. Result Comment: [facility] Negative results do not preclude SARS-CoV-2 infection and should not be used as the sole basis for treatment or other patient management decisions. Optimum specimen types and timing for peak viral levels during infections caused by SARS-CoV-2 has not been determined. The possibility of a false negative result should especially be considered if the patient's recent exposures or clinical presentation suggest that SARS-CoV-2 infection is probable, and diagnostic tests for other causes of illness (e.g., other respiratory illness) are negative. Collection of a new specimen and re-testing may be necessary if the patient is critically ill or clinically deteriorating. This test was performed using isothermal nucleic acid amplification technology for the qualitative detection of SARS-CoV-2 nucleic acid. The test has been authorized by the FDA under an emergency use authorization for use by authorized laboratories. Performed By: #### G ASVL #### [facility] (DEFAULT) [address] [place] [address] SARS-CoV-2 (COVID-19) RNA NA A+probe Ql (Unsp spec)Ordered By: Princess Riley on 11-23-2022 Interpretation and review of laboratory results Normal [facility] SARS-CoV-2 (COVID-19) RdRp gene NATHANIEL+probe Ql (Resp) Not detected NOT DETECTED [facility] Comment on above: [facility] Negative results do not preclude SARS-CoV-2 infection and should not be used as the sole basis for treatment or other patient management decisions. Optimum specimen types and timing for peak viral levels during infections caused by SARS-CoV-2 has not been determined. The possibility of a false negative result should especially be considered if the patient's recent exposures or clinical presentation suggest that SARS-CoV-2 infection is probable, and diagnostic tests for other causes of illness (e.g., other respiratory illness) are negative. Collection of a new specimen and re-testing may be necessary if the patient is critically ill or clinically deteriorating. This test was performed using isothermal nucleic acid amplification technology for the qualitative detection of SARS-CoV-2 nucleic acid. The test has been authorized by the FDA under an emergency use authorization for use by authorized laboratories. [facility] ANTI PHOSPHOLIPID ANTIBODYOr dered By: Stanley Vega on 11-22-2022 Cardiolipin IgG IA Qn (S) [facility] Cardiolipin IgM IA Qn (S) [facility] Interpretation and review of laboratory results Normal [facility] BETA 2 GLYCOPROTEIN 1 AB, IG G, IGM, DOMAIN 1on 11-22-2022 Beta 2 Glycoprotein 1 Domain 1 [facility] Beta 2 glycoprotein 1 IgG IA Qn [facility] Beta 2 glycoprotein 1 IgM Qn (S) [facility] Interpretation and review of laboratory results Normal [facility] BLOOD CULTUREon 11-22-2022 Bacteria identified Cx Nom (Unsp spec) NO GROWTH DAY 5 OF 5 Normal [facility] Comment on above: Order Comment: 2 Bot tles (1 Set - consists of 1 Aerobic bottle and 1 Anaerobic bottle) -1st Peripheral DrawFor syringe method draw:If able to obtain adequate sample (20 ml) inoculate anaerobic bottle firstIf inadequate sample obtained (less than 20 ml) inoculate aerobic bottle firstFor vacutainer method draw: Fill aerobic bottle first, then anaerobicResults may be compromised due to volume of BACT\ALERT bottle below 8mLs. The optimal blood volume is 8-10 mls per aerobic/anaerobic blood culture bottle Performed By: #### G ASVL #### [facility] (DEFAULT) [address] [address] Order Comment: 2 Bot tles (1 Set - consists of 1 Aerobic bottle and 1 Anaerobic bottle) -1st Peripheral DrawFor syringe method draw:If able to obtain adequate sample (20 ml) inoculate anaerobic bottle firstIf inadequate sample obtained (less than 20 ml) inoculate aerobic bottle firstFor vacutainer method draw: Fill aerobic bottle first, then anaerobic C REACTIVE PROTEINon 023 CRP [Mass/Vol] 68.39 mg/L High <10.00 [facility] Comment on above: Performed By: #### F IB, [id number] #### [facility] (DEFAULT) [address] [place] [address] 11317 CRP High sensitivity method [Mass/Vol] 68.39 mg/L High NINF - 10.00 mg/L [facility] CALCIUMon 11-22-2022 Calcium [Mass/Vol] 8.2 mg/dL Low 8.6-10.5 [facility] Comment on above: Performed By: #### F IB, [id number] #### [facility] (DEFAULT) [address] [address] Calcium [Mass/Vol] 8.2 mg/dL Low 8.6 - 10. 5 mg/dL [facility] CBC,PLATELETSon 11-22-2022 Hematocrit (Bld) [Volume fraction] 42.7 % Normal 39.6-48.8 [facility] Comment on above: Performed By: #### L [id number], [id number] #### [facility] (DEFAULT) [address] [place] [address] 55215 Hemoglobin (Bld) [Mass/Vol] 14.0 g/dL Normal 13.4-16.8 [facility] Comment on above: Performed By: #### L [id number], [id number] #### [facility] (DEFAULT) [address] [address] MCV (RBC) [Entitic vol] 88.0 fL Normal 79.0-94.5 [facility] Comment on above: Performed By: #### Snehal [id number], [id number] #### [facility] (DEFAULT) [address] [address] Mean Cell Hgb 28.9 pg Normal 26.1-33.3 [facility] Comment on above: Performed By: #### Snehal ARREDONDO [id number] #### [facility] (DEFAULT) [address] [address] Mean Cell Hgb Conc 32.8 g/dL Normal 31.9-36.5 [facility] Comment on above: Performed By: #### Snehal [id number], [id number] #### [facility] (DEFAULT) [address] [address] Platelet mean volume (Bld) [Entitic vol] 10.7 fL Normal 8.7-12.3 [facility] Comment on above: Performed By: #### Snehal [id number], [id number] #### [facility] (DEFAULT) [address] [address] Platelets (Bld) [#/Vol] 218 10*3/uL Normal 146-337 [facility] Comment on above: Performed By: #### L [id number], [id number] #### [facility] (DEFAULT) [address] [address] RBC (Bld) [#/Vol] 4.85 10*6/uL Normal 4.38-5.83 [facility] Comment on above: Performed By: #### L [id number], [id number] #### [facility] (DEFAULT) [address] [place] [address] 88496 RBC Distribution 14.3 % Normal 10.9-14.3 [facility] Comment on above: Performed By: #### L [id number], [id number] #### [facility] (DEFAULT) [address] [place] [address] 05157 WBC (Bld) [#/Vol] 15.33 10*3/uL High 3.73-10.10 [facility] Comment on above: Performed By: #### L [id number], [id number] #### [facility] (DEFAULT) [address] [place] [address]1948 Erythrocyte distribution width (RBC) [Ratio] 14.3 % 10.9 - 14.3 % [facility] Hematocrit (Bld) [Volume fraction] 42.7 % 39.6 - 48.8 % [facility] Hemoglobin (Bld) [Mass/Vol] 14.0 g/dL 13.4 - 16.8 g/dL [facility] Interpretation and review of laboratory results Abnormal [facility] MCH (RBC) [Entitic mass] 28.9 pg 26.1 - 33.3 pg [facility] MCHC (RBC) [Mass/Vol] 32.8 g/dL 31.9 - 36.5 g/dL [facility] MCV (RBC) [Entitic vol] 88.0 fL 79.0 - 94.5 fL [facility] Platelet mean volume (Bld) [Entitic vol] 10.7 fL 8.7 - 12.3 fL [facility] Platelets (Bld) [#/Vol] 218 10*3/uL 146 - 337 K/uL [facility] RBC (Bld) [#/Vol] 4.85 10*6/uL [facility] WBC (Bld) [#/Vol] 15.33 10*3/uL High 3.73 - 10 .10 K/uL [facility] CHEM 7 (LYTES,BUN,CREA,GLUC) on 11-22-2022 Anion gap [Moles/Vol] 14 mmol/L Normal 7-17 [facility] Comment on above: Performed By: #### F IB, [id number] #### [facility] (DEFAULT) [address] [place] [address] 58573 Chloride [Moles/Vol] 106 mmol/L Normal 98-108 [facility] Comment on above: Performed By: #### F IB, [id number] #### [facility] (DEFAULT) [address] [place] [address] 45248 CO2 [Moles/Vol] 21 mmol/L Normal 21-31 [facility] Comment on above: Performed By: #### F IB, [id number] #### [facility] (DEFAULT) [address] [place] [address] 99833 Creatinine [Mass/Vol] 0.82 mg/dL Normal 0.70-1.30 [facility] Comment on above: Performed By: #### F IB, [id number] #### [facility] (DEFAULT) [address] [place] [address] 11183 GFR/1.73 sq M.predicted among non-blacks MDRD (S/P/Bld) [Vol rate/Area] 89 mL/min/{1.73_m2} Normal >=60 [facility] Comment on above: Result Comment: Repo rted eGFR is based on the CKD-EPI 2020 equation using creatinine, age, and sex. Performed By: #### F IB, [id number] #### [facility] (DEFAULT) [address] [place] [address] 85687 Glucose [Mass/Vol] 113 mg/dL High 70-99 [facility] Comment on above: Performed By: #### F IB, [id number] #### [facility] (DEFAULT) [address] [place] [address] 28015 Osmolality [Osmolality] 291 mosm/kg Normal 278-305 [facility] Comment on above: Performed By: #### F IB, [id number] #### [facility] (DEFAULT) [address] [place] [address] 38793 Potassium [Moles/Vol] 3.7 mmol/L Normal 3.5-5.0 [facility] Comment on above: Performed By: #### F IB, [id number] #### [facility] (DEFAULT) [address] [place] [address] 75644 Sodium [Moles/Vol] 137 mmol/L Normal 135-145 [facility] Comment on above: Performed By: #### F IB, [id number] #### [facility] (DEFAULT) [address] [place] [address] 34865 Urea nitrogen [Mass/Vol] 24 mg/dL Normal 7-25 [facility] Comment on above: Performed By: #### F IB, [id number] #### [facility] (DEFAULT) [address] [place] [address] 33132 Urea nitrogen/Creatinine [Mass ratio] 29 mg/mg Normal [facility] Comment on above: Performed By: #### F IB, [id number] #### [facility] (DEFAULT) [address] [place] [address] 98470 Anion gap [Moles/Vol] 14 mmol/L 7 - 17 mmol/L [facility] Chloride [Moles/Vol] 106 mmol/L 98 - 10 8 mmol/L [facility] CO2 [Moles/Vol] 21 mmol/L 21 - 31 mmol/L [facility] Creatinine [Mass/Vol] 0.82 mg/dL 0.70 - 1.30 mg/dL [facility] GFR/1.73 sq M.predicted CKD-EPI (S/P/Bld) [Vol rate/Area] 89 - PINF [facility] Comment on above: Reported eGFR is bas ed on the CKD-EPI 2020 equation using creatinine, age, and sex. Glucose [Mass/Vol] 113 mg/dL High 70 - 99 mg/dL [facility] Osmolality Calc [Osmolality] 291 [facility] Potassium [Moles/Vol] 3.7 mmol/L 3.5 - 5.0 mmol/L [facility] Sodium [Moles/Vol] 137 mmol/L 135 - 145 mmol/L [facility] Urea nitrogen [Mass/Vol] 24 mg/dL 7 - 25 mg/dL [facility] Urea nitrogen/Creatinine [Mass ratio] 29 mg/mg [facility] CONTINUOUS CARDIAC MONITORIN G STRIPOrdered By: Unassigned Pacs on 11-22-2022 [facility] Work Phone: CT HEAD WITHOUT CONTRASTon 0 11-22-2022 CT HEAD WITHOUT CONTRAST EXAM: CT HEAD WITHOUT CONTRAST, 11/22/2022 4:22 PM COMPARISON: MRI brain with and without contrast and CT head November 20, 2022 CLINICAL INDICATIONS: 77 years Male Stroke, follow up; TECHNIQUE: A series of transaxial computerized tomographic images are obtained from base of skull to vertex without intravenous contrast. Axial whole-head and thin section posterior fossa slices are provided. Reformats: Sagittal and coronal. FINDINGS: There is motion artifact most pronounced inferiorly. Stable size of a right occipital lobe parenchymal hematoma with unchanged mild surrounding edema and local mass effect. There is no significant midline shift. There is similar intraventricular extension with blood layering within the occipital horns. The ventricles appear stable in size. There is a small subdural hematoma along the posterior segment of the left cerebral falx and left tentorial leaflet which appear unchanged. Small amount of subarachnoid hemorrhage along the lateral aspect of left cerebellar hemisphere and equivocally on the right appear unchanged. Additionally small amount of unchanged subarachnoid hemorrhage in the left sylvian fissure. Small hypodense focus within the inferior left cerebellum may relate to a remote infarct or insult. Stable CSF density along the superior and lateral aspect of the left cerebellar hemisphere.. Stable area of encephalomalacia within the left frontal lobe. Patchy hypodensities in the periventricular white matter, likely chronic small vessel ischemic disease. Calvarium and skull base appear intact. Stable opacification of the right sphenoid sinus with mucoperiosteal thickening related chronic inflammatory sinusitis. There is also mucosal thickening of the wall of the right maxillary sinus likely related chronic sinusitis. Orbits are unremarkable. Calcifications of intracranial carotid arteries at skull base. IMPRESSION: No interval change when compared to CT head November 20, 2022. Normal [facility] CT Head WO contraston 2022 IMPRESSION: No inter starr change when compared to CT head November 20, 2022. OLOGY EXAM: CT HEAD WITHOU T CONTRAST, 11/22/2022 4:22 PM COMPARISON: MRI brain with and without contrast and CT head November 20, 2022 CLINICAL INDICATIONS: 77 years Male Stroke, follow up; TECHNIQUE: A series of transaxial computerized tomographic images are obtained from base of skull to vertex without intravenous contrast. Axial whole-head and thin section posterior fossa slices are provided. Reformats: Sagittal and coronal. FINDINGS: There is motion artifact most pronounced inferiorly. Stable size of a right occipital lobe parenchymal hematoma with unchanged mild surrounding edema and local mass effect. There is no significant midline shift. There is similar intraventricular extension with blood layering within the occipital horns. The ventricles appear stable in size. There is a small subdural hematoma along the posterior segment of the left cerebral falx and left tentorial leaflet which appear unchanged. Small amount of subarachnoid hemorrhage along the lateral aspect of left cerebellar hemisphere and equivocally on the right appear unchanged. Additionally small amount of unchanged subarachnoid hemorrhage in the left sylvian fissure. Small hypodense focus within the inferior left cerebellum may relate to a remote infarct or insult. Stable CSF density along the superior and lateral aspect of the left cerebellar hemisphere.. Stable area of encephalomalacia within the left frontal lobe. Patchy hypodensities in the periventricular white matter, likely chronic small vessel ischemic disease. Calvarium and skull base appear intact. Stable opacification of the right sphenoid sinus with mucoperiosteal thickening related chronic inflammatory sinusitis. There is also mucosal thickening of the wall of the right maxillary sinus likely related chronic sinusitis. Orbits are unremarkable. Calcifications of intracranial carotid arteries at skull base. RADIOLOGY Roxanne Salgado MD - 11/22/2022 EXAM: CT HEAD WITHOUT CONTRAST, 11/22/2022 4:22 PM COMPARISON: MRI brain with and without contrast and CT head November 20, 2022 CLINICAL INDICATIONS: 77 years Male Stroke, follow up; TECHNIQUE: A series of transaxial computerized tomographic images are obtained from base of skull to vertex without intravenous contrast. Axial whole-head and thin section posterior fossa slices are provided. Reformats: Sagittal and coronal. FINDINGS: There is motion artifact most pronounced inferiorly. Stable size of a right occipital lobe parenchymal hematoma with unchanged mild surrounding edema and local mass effect. There is no significant midline shift. There is similar intraventricular extension with blood layering within the occipital horns. The ventricles appear stable in size. There is a small subdural hematoma along the posterior segment of the left cerebral falx and left tentorial leaflet which appear unchanged. Small amount of subarachnoid hemorrhage along the lateral aspect of left cerebellar hemisphere and equivocally on the right appear unchanged. Additionally small amount of unchanged subarachnoid hemorrhage in the left sylvian fissure. Small hypodense focus within the inferior left cerebellum may relate to a remote infarct or insult. Stable CSF density along the superior and lateral aspect of the left cerebellar hemisphere.. Stable area of encephalomalacia within the left frontal lobe. Patchy hypodensities in the periventricular white matter, likely chronic small vessel ischemic disease. Calvarium and skull base appear intact. Stable opacification of the right sphenoid sinus with mucoperiosteal thickening related chronic inflammatory sinusitis. There is also mucosal thickening of the wall of the right maxillary sinus likely related chronic sinusitis. Orbits are unremarkable. Calcifications of intracranial carotid arteries at skull base. IMPRESSION IMPRESSION: No interval change when compared to CT head November 20, 2022. [facility] Radiology Study observation (narrative) [facility] CT Head WO contrastOrdered B y: Roxanne Salgado on 11-22-2022 [facility] Work Phone: LAVENDER TOP TUBEon 11-22-19 [facility] No Panel Informationon 11-22 Interpretation and review of laboratory results Abnormal [facility] Portable XR Chest Viewson IMPRESSION: Stable chest. OLOGY EXAM: XR CHEST PORTABLE, 11/22/2022 20:29 PM COMPARISON: November 20, 2022 CLINICAL INDICATIONS: fever, assess for pna RELEVANT CLINICAL HISTORY: FINDINGS: (Adequate technique) Implanted Devices: None Thorax: No acute findings in the chest. RADIOLOGY Saul Noel MD - 11/22/2022 EXAM: XR CHEST PORTABLE, 11/22/2022 20:29 PM COMPARISON: November 20, 2022 CLINICAL INDICATIONS: fever, assess for pna RELEVANT CLINICAL HISTORY: FINDINGS: (Adequate technique) Implanted Devices: None Thorax: No acute findings in the chest. IMPRESSION IMPRESSION: Stable chest. [facility] Radiology Study observation (narrative) [facility] Portable XR Chest ViewsOrder ed By: Saul Noel on 11-22-2022 [facility] URINALYSIS REFLEX TO CULTURE PERFORMABLEon 11-22-2022 Appearance (U) Turbid Abnormal Clear [facility] Comment on above: Order Comment: For i ndwelling catheters, specimen collection is acceptable on catheter day 1 and 2 only. ? Performed By: #### U [id number] ####[facility] (DEFAULT)[address] [place] [address] Bacteria ABSENT Normal ABSENT [facility] Comment on above: Order Comment: For i ndwelling catheters, specimen collection is acceptable on catheter day 1 and 2 only. ? Performed By: #### U [id number] ####[facility] (DEFAULT)[address] [place] [address] Blood Urine Small Abnormal Negative [facility] Comment on above: Order Comment: For i ndwelling catheters, specimen collection is acceptable on catheter day 1 and 2 only. ? Performed By: #### U [id number] ####[facility] (DEFAULT)[address] [place] [address] Color (U) Yellow Normal Yellow [facility] Comment on above: Order Comment: For i ndwelling catheters, specimen collection is acceptable on catheter day 1 and 2 only. ? Performed By: #### U [id number] ####[facility] (DEFAULT)[address] [place] [address] Glucose Ql (U) Negative Normal Negative [facility] Comment on above: Order Comment: For i ndwelling catheters, specimen collection is acceptable on catheter day 1 and 2 only. ? Performed By: #### U [id number] ####[facility] (DEFAULT)[address] [facility] [address] Ketones Ql (U) Negative Normal Negative [facility] Comment on above: Order Comment: For i ndwelling catheters, specimen collection is acceptable on catheter day 1 and 2 only. ? Performed By: #### U [id number] ####[facility] (DEFAULT)[address] [place] [address] Leukocyte esterase Test strip Ql (U) Negative Normal Negative [facility] Comment on above: Order Comment: For i ndwelling catheters, specimen collection is acceptable on catheter day 1 and 2 only. ? Performed By: #### U [id number] ####[facility] (DEFAULT)[address] [place], [place] [address], [place] [address] Nitrites Urine Negative Normal Negative [facility] Comment on above: Order Comment: For i ndwelling catheters, specimen collection is acceptable on catheter day 1 and 2 only. ? Performed By: #### U [id number] ####[facility] (DEFAULT)[address] [place] [address], [place] [address] pH (U) 7.5 [pH] Abnormal 5.0-7.0 [facility] Comment on above: Order Comment: For i ndwelling catheters, specimen collection is acceptable on catheter day 1 and 2 only. ? Performed By: #### U [id number] ####[facility] (DEFAULT)[address] [place] [address] Protein Urine 30 mg/dL Abnormal Negative [facility] Comment on above: Order Comment: For i ndwelling catheters, specimen collection is acceptable on catheter day 1 and 2 only. ? Performed By: #### U [id number] ####[facility] (DEFAULT)[address] [place], [place] [address], [place] [address] RBC Urine 10-20 Abnormal 0-2 [facility] Comment on above: Order Comment: For i ndwelling catheters, specimen collection is acceptable on catheter day 1 and 2 only. ? Performed By: #### U [id number] ####[facility] (DEFAULT)[address] [place] [address], [place] [address] Specific Fouke Urine 1.021 Normal 1.001-1.035 [facility] Comment on above: Order Comment: For i ndwelling catheters, specimen collection is acceptable on catheter day 1 and 2 only. ? Performed By: #### U [id number] ####[facility] (DEFAULT)[address] [place] [address], [place] [address] Squamous/Epithelial Cells 1/hpf = 1+ Normal 1/hpf = 1+, 2-5/hpf = 2+, 0/hpf = 0+, ABSENT [facility] Comment on above: Order Comment: For i ndwelling catheters, specimen collection is acceptable on catheter day 1 and 2 only. ? Performed By: #### U [id number] ####[facility] (DEFAULT)[address] [place] [address], [place] [address] Urobilinogen Urine 1.0 E.U./dL Normal 0.2 E.U/d L, 1.0 E.U/dL [facility] Comment on above: Order Comment: For i ndwelling catheters, specimen collection is acceptable on catheter day 1 and 2 only. ? Performed By: #### U [id number] ####[facility] (DEFAULT)[address] [place] [address], [place] [address] WBC Urine 0-5 Normal 0-5 [facility] Comment on above: Order Comment: For i ndwelling catheters, specimen collection is acceptable on catheter day 1 and 2 only. ? Performed By: #### U [id number] ####[facility] (DEFAULT)[address] [place] [address] Appearance (U) Turbid Abnormal Clear [facility] Bacteria LM Ql (Urine sed) ABSENT ABSENT [facility] Color (U) Yellow Yellow [facility] Epithelial cells.squamous LM Ql (Urine sed) 1/hpf = 1+ 1/hpf = 1+, 2-5/hpf = 2+, 0/hpf = 0+, ABSENT [facility] Glucose Test strip (U) [Mass/Vol] Negative Negative [facility] Interpretation and review of laboratory results Abnormal [facility] Ketones (U) [Mass/Vol] Negative Negative [facility] Leukocyte esterase Test strip Ql (U) Negative Negative [facility] Nitrite Ql (U) Negative Negative [facility] pH (U) 7.5 [pH] Abnormal 5.0 - 7.0 [facility] Protein (U) [Mass/Vol] 30 mg/dL Abnormal Negative [facility] RBC (U) [#/Vol] Small Abnormal Negative [facility] RBC LM.HPF (Urine sed) [#/Area] 10-20 Abnormal [facility] Specific gravity (U) [Rel density] 1.021 1.001 - 1.035 [facility] Urobilinogen (U) [Mass/Vol] 1.0 E.U./dL 0.2 E.U/dL, 1.0 E.U/dL [facility] WBC LM.HPF (Urine sed) [#/Area] 0-5 [facility] URINE CULTUREOrdered By: Martín Au on 11-22-2022 Bacteria identified Cx Nom (Unsp spec) No Growth [facility] For straight cath urines, a cut off of equal or greater than 10,000 CFU/mL is considered significant. [facility] XR CHEST PORTABLEon 11-22-19 23 XR CHEST PORTABLE EXAM: XR CHEST PORTABLE, 11/22/2022 20:29 PM COMPARISON: November 20, 2022 CLINICAL INDICATIONS: fever, assess for pna RELEVANT CLINICAL HISTORY: FINDINGS: (Adequate technique) Implanted Devices: None Thorax: No acute findings in the chest. IMPRESSION: Stable chest. Normal [facility] ANTI PHOSPHOLIPID ANTIBODYon 11-21-2022 Anti-Cardiolipin Antibody, IgG <10.0 Normal 0.0-20.0 [facility] Comment on above: Performed By: #### U R #### [facility] (DEFAULT) [address] [place] [address] Anti-Cardiolipin Antibody, IgM < Normal 0.0-20.0 [facility] Comment on above: Performed By: #### U R #### [facility] (DEFAULT) [address] [address] BETA 2 GLYCOPROTEIN 1 AB, IG G, IGM, DOMAIN 1on 11-21-2022 Beta 2 Glycoprotein 1 Antibody, IgG <10.0 Normal 0.0-20.0 [facility] Comment on above: Performed By: #### U R #### [facility] (DEFAULT) [address] [place] [address] Beta 2 Glycoprotein 1 Antibody, IgM < Normal 0.0-20.0 [facility] Comment on above: Performed By: #### U R #### [facility] (DEFAULT) [address] [place] [address] Beta 2 Glycoprotein 1 Domain 1 < Normal 0.0-19.9 [facility] Comment on above: Performed By: #### U R #### [facility] (DEFAULT) [address] [place] [address] C REACTIVE PROTEINon 023 CRP [Mass/Vol] 33.04 mg/L High <10.00 [facility] Comment on above: Performed By: #### L [id number], [id number] #### [facility] (DEFAULT) [address] [place] [address] CRP High sensitivity method [Mass/Vol] 33.04 mg/L High NINF - 10.00 mg/L [facility] CALCIUMon 11-21-2022 Calcium [Mass/Vol] 8.4 mg/dL Low 8.6-10.5 [facility] Comment on above: Performed By: #### L [id number], [id number] #### [facility] (DEFAULT) [address] [place] [address] Calcium [Mass/Vol] 8.4 mg/dL Low 8.6 - 10. 5 mg/dL [facility] CBC,PLATELETSon 11-21-2022 Hematocrit (Bld) [Volume fraction] 43.9 % Normal 39.6-48.8 [facility] Comment on above: Performed By: #### U R #### [facility] (DEFAULT) [address] [place] [address] Hemoglobin (Bld) [Mass/Vol] 14.6 g/dL Normal 13.4-16.8 [facility] Comment on above: Performed By: #### U R #### [facility] (DEFAULT) [address] [place] [address] MCV (RBC) [Entitic vol] 90.5 fL Normal 79.0-94.5 [facility] Comment on above: Performed By: #### U R #### [facility] (DEFAULT) [address] [place] [address] Mean Cell Hgb 30.1 pg Normal 26.1-33.3 [facility] Comment on above: Performed By: #### U R #### [facility] (DEFAULT) [address] [place] [address] Mean Cell Hgb Conc 33.3 g/dL Normal 31.9-36.5 [facility] Comment on above: Performed By: #### U R #### [facility] (DEFAULT) [address] [place] [address] Platelet mean volume (Bld) [Entitic vol] 10.6 fL Normal 8.7-12.3 [facility] Comment on above: Performed By: #### U R #### [facility] (DEFAULT) [address] [place] [address] Platelets (Bld) [#/Vol] 208 10*3/uL Normal 146-337 [facility] Comment on above: Performed By: #### U R #### [facility] (DEFAULT) [address] [place] [address] RBC (Bld) [#/Vol] 4.85 10*6/uL Normal 4.38-5.83 [facility] Comment on above: Performed By: #### U R #### [facility] (DEFAULT) [address] [place] [address] RBC Distribution 14.1 % Normal 10.9-14.3 [facility] Comment on above: Performed By: #### U R #### [facility] (DEFAULT) [address] [place] [address] WBC (Bld) [#/Vol] 14.25 10*3/uL High 3.73-10.10 [facility] Comment on above: Performed By: #### U R #### [facility] (DEFAULT) [address] [place] [address] Erythrocyte distribution width (RBC) [Ratio] 14.1 % 10.9 - 14.3 % [facility] Hematocrit (Bld) [Volume fraction] 43.9 % 39.6 - 48.8 % [facility] Hemoglobin (Bld) [Mass/Vol] 14.6 g/dL 13.4 - 16.8 g/dL [facility] Interpretation and review of laboratory results Abnormal [facility] MCH (RBC) [Entitic mass] 30.1 pg 26.1 - 33.3 pg [facility] MCHC (RBC) [Mass/Vol] 33.3 g/dL 31.9 - 36.5 g/dL [facility] MCV (RBC) [Entitic vol] 90.5 fL 79.0 - 94.5 fL [facility] Platelet mean volume (Bld) [Entitic vol] 10.6 fL 8.7 - 12.3 fL [facility] Platelets (Bld) [#/Vol] 208 10*3/uL 146 - 337 K/uL [facility] RBC (Bld) [#/Vol] 4.85 10*6/uL [facility] WBC (Bld) [#/Vol] 14.25 10*3/uL High 3.73 - 10 .10 K/uL [facility] CHEM 7 (LYTES,BUN,CREA,GLUC) on 11-21-2022 Anion gap [Moles/Vol] 15 mmol/L Normal 7-17 [facility] Comment on above: Performed By: #### L [id number], [id number] #### [facility] (DEFAULT) [address] [place] [address] Chloride [Moles/Vol] 107 mmol/L Normal 98-108 [facility] Comment on above: Performed By: #### L [id number], [id number] #### [facility] (DEFAULT) [address] [place] [address] CO2 [Moles/Vol] 19 mmol/L Low 21-31 [facility] Comment on above: Performed By: #### L [id number], [id number] #### [facility] (DEFAULT) [address] [place] [address] Creatinine [Mass/Vol] 0.86 mg/dL Normal 0.70-1.30 [facility] Comment on above: Performed By: #### L [id number], [id number] #### [facility] (DEFAULT) [address] [place] [address] GFR/1.73 sq M.predicted among non-blacks MDRD (S/P/Bld) [Vol rate/Area] 88 mL/min/{1.73_m2} Normal >=60 [facility] Comment on above: Result Comment: Repo rted eGFR is based on the CKD-EPI 2020 equation using creatinine, age, and sex. Performed By: #### Snehal ARREDONDO [id number] #### [facility] (DEFAULT) [address] [place] [address] Glucose [Mass/Vol] 101 mg/dL High 70-99 [facility] Comment on above: Performed By: #### Snehal ARREDONDO [id number] #### [facility] (DEFAULT) [address] [place] [address] Osmolality [Osmolality] 290 mosm/kg Normal 278-305 [facility] Comment on above: Performed By: #### Snehal ARREDONDO [id number] #### [facility] (DEFAULT) [address] [place] [address] Potassium [Moles/Vol] 3.7 mmol/L Normal 3.5-5.0 [facility] Comment on above: Performed By: #### Snehal ARREDONDO [id number] #### [facility] (DEFAULT) [address] [place] [address] Sodium [Moles/Vol] 137 mmol/L Normal 135-145 [facility] Comment on above: Performed By: #### Snehal ARREDONDO [id number] #### [facility] (DEFAULT) [address] [place] [address] Urea nitrogen [Mass/Vol] 21 mg/dL Normal 7-25 [facility] Comment on above: Performed By: #### Snehal ARREDONDO [id number] #### [facility] (DEFAULT) [address] [place] [address] Urea nitrogen/Creatinine [Mass ratio] 24 mg/mg Normal [facility] Comment on above: Performed By: #### Snehal ARREDONDO [id number] #### [facility] (DEFAULT) [address] [place] [address] Anion gap [Moles/Vol] 15 mmol/L 7 - 17 mmol/L [facility] Chloride [Moles/Vol] 107 mmol/L 98 - 10 8 mmol/L [facility] CO2 [Moles/Vol] 19 mmol/L Low 21 - 31 mmol/L [facility] Creatinine [Mass/Vol] 0.86 mg/dL 0.70 - 1.30 mg/dL [facility] GFR/1.73 sq M.predicted CKD-EPI (S/P/Bld) [Vol rate/Area] 88 - PINF [facility] Comment on above: Reported eGFR is bas ed on the CKD-EPI 2020 equation using creatinine, age, and sex. Glucose [Mass/Vol] 101 mg/dL High 70 - 99 mg/dL [facility] Osmolality Calc [Osmolality] 290 [facility] Potassium [Moles/Vol] 3.7 mmol/L 3.5 - 5.0 mmol/L [facility] Sodium [Moles/Vol] 137 mmol/L 135 - 145 mmol/L [facility] Urea nitrogen [Mass/Vol] 21 mg/dL 7 - 25 mg/dL [facility] Urea nitrogen/Creatinine [Mass ratio] 24 mg/mg [facility] Cardiac echo study Procedure Ordered By: Montrell Warren on 11-21-2022 Ao peak livier 1.91 m/s [facility] Work Phone: Ao VTI 34.55 cm [facility] Work Phone: AV LVOT peak gradient 8 mmHg [facility] Work Phone: AV mean gradient [address] [facility] Work Phone: AV peak gradient [address] [facility] Work Phone: AV valve area 2.32 cm2 [facility] Work Phone: AV Velocity Ratio 0.74 [facility] Work Phone: AL (continuity Vmax) 2.46 cm2 [facility] Work Phone: AL (continuity VTI) 2.32 cm2 [facility] Work Phone: AL index (continuity Vmax) 1.40 m/s [facility] Work Phone: AL index (continuity VTI) 1.32 cm2/m2 [facility] Work Phone: Avg e' pk livier 0.09 m/s [facility] Work Phone: Avg E/e' ratio 9.18 [facility] Work Phone: Body surface area Derived from formula 1.76 m2 [facility] Work Phone: BP EF 71 % [facility] Work Phone: DI (Vmax) 0.74 [facility] Work Phone: DI (VTI) 0.70 m/2 [facility] Work Phone: E wave decelartion time 267.97 msec [facility] Work Phone: e' lateral pk livier 0.0627 m/s [facility] Work Phone: e' lateral pk livier 0.06 [facility] Work Phone: e' septal pk livier 0.1129 m/s [facility] Work Phone: e' septal pk livier 0.11 m/s [facility] Work Phone: E/A ratio 0.93 [facility] Work Phone: E/e' lateral ratio 11.80 [facility] Work Phone: E/e' septal [facility] 6.55 [facility] Work Phone: LA AREA 2CH 18.46 cm2 [facility] Work Phone: LA area 4CH 15.66 cm2 [facility] Work Phone: LA ESV BP (MOD) [facility] Work Phone: LA ESV BP (MOD) index 25 mL/m2 [facility] Work Phone: LA ESV SP 2CH (MOD) [address] [facility] Work Phone: LA ESV SP 4CH (MOD) [address] [facility] Work Phone: LV EDV BP 62 mL [facility] Work Phone: LV ESV BP 18 mL [facility] Work Phone: LV stroke volume BP (ml) 44 mL [facility] Work Phone: LV stroke volume index BP 25.00 mL/m2 [facility] Work Phone: LVOT area 3.33 cm2 [facility] Work Phone: LVOT diameter 2.06 cm [facility] Work Phone: LVOT peak livier 1.41 m/s [facility] Work Phone: LVOT peak VTI 24.04 cm [facility] Work Phone: LVOT stroke volume 80 cm3 [facility] Work Phone: LVOT stroke volume index 45.50 ml/m2 [facility] Work Phone: MV pk A livier 0.80 m/s [facility] Work Phone: MV pk E livier 0.74 m/s [facility] Work Phone: MV stenosis pressure 1/2 time 77.71 ms [facility] Work Phone: MV valve area p 1/2 method 2.83 cm2 [facility] Work Phone: [facility] AV VTI RATIO PRE STRESS 0.70 [facility] Work Phone: [facility] ECHO LV BIPLANE SYSTOLIC VOLUME INDEX 10.23 mL/m2 [facility] Work Phone: [facility] ECHO LV BP DIASTOLIC VOLUME INDEX 35.23 mL/m2 [facility] Work Phone: [facility] RVOT VTI RATIO 0.64 [facility] Work Phone: PV [facility] Work [facility]: PV peak gradient [address] [facility] Work Phone: PV PK LIVIER 0.78 m/s [facility] Work Phone: PV VTI 13.50 cm [facility] Work Phone: RA vol index 4CH (MOD) 36.93 mL/m2 [facility] Work Phone: Right atrium volume 4 chamber method of disks 65 mL [facility] Work Phone: RV Area diastolic 14.37 cm2 [facility] Work Phone: RV Area systolic 8.54 cm2 [facility] Work Phone: RV basal diam 4.42 cm [facility] Work Phone: RV Fractional area change 40.6 % [facility] Work Phone: RV long diam 7.21 cm [facility] Work Phone: RV mid diam 2.73 cm [facility] Work Phone: RV S' 18.37 cm/s [facility] Work Phone: RVOT peak gradient 2 mmHg [facility] Work Phone: RVOT peak livier 0.62 m/s [facility] Work Phone: RVOT peak VTI 8.68 cm [facility] Work Phone: Stroke Volume 80 cm/mL [facility] Work Phone: Stroke volume index 46 [facility] Work Phone: TAPSE 2.68 cm [facility] Work Phone: TR pk grad 23 mmHg [facility] Work Phone: TR pk livier 2.42 m/s [facility] Work Phone: [facility] Work Phone: Cardiac echo study Procedure on 11-21-2022 Normal LV size and function, EF 70%. Normal RV size and function. No hemodynamically significant valve disease. -mild TR, RVSP 30 mm hg. Left Ventricle Chamber size is normal. Normal wall thickness. Normal global systolic function. Regional wall motion is normal. Ejection fraction is normal (65 - 70%). Diastolic function is normal. Right Ventricle Chamber size is normal. Normal wall thickness. Segmental wall motion is normal. Systolic function is normal. Left Atrium Chamber size is normal. Right Atrium Chamber size is normal. Mitral Valve Normal appearing leaflets. Leaflet mobility is normal. No regurgitation. No valve stenosis. Tricuspid Valve Normal leaflets. Leaflet mobility is normal. Mild regurgitation. No stenosis. Aortic Valve Trileaflet valve. Leaflet mobility is normal. No regurgitation. No stenosis. Pulmonic Valve Normal structure. No regurgitation. No stenosis. Pericardium Appears normal. No pericardial effusion. Septum The atrial septum is normal. Aorta No dilation to extent seen. Study Details A complete echocardiography study was performed. Imaging system used: [id number]. Indications Indications for study: stroke/tia. [facility] Radiology Study observation (narrative) [facility] ECHOCARDIOGRAMon 11-21-2022 Echocardiography Normal LV size and function, EF 70%. Normal RV size and function. No hemodynamically significant valve disease. -mild TR, RVSP 30 mm hg. Table formatting from the original result was not included. Images from the original result were not included. Facility [facility] Patient Information Patient Name Juli Shook Legal Sex Male Indication for Exam Priority: Routine Dx: Nontraumatic intracerebral hemorrhage, unspecified cerebral location, unspecified laterality [I61.9 (ICD-10-CM)] Order Question Reason for Exam Rt IPH Interpretation Summary Normal LV size and function, EF 70%. Normal RV size and function. No hemodynamically significant valve disease. -mild TR, RVSP 30 mm hg. Findings Left Ventricle Chamber size is normal. Normal wall thickness. Normal global systolic function. Regional wall motion is normal. Ejection fraction is normal (65 - 70%). Diastolic function is normal. Right Ventricle Chamber size is normal. Normal wall thickness. Segmental wall motion is normal. Systolic function is normal. Left Atrium Chamber size is normal. Right Atrium Chamber size is normal. Septum The atrial septum is normal. Mitral Valve Normal appearing leaflets. Leaflet mobility is normal. No regurgitation. No valve stenosis. Aortic Valve Trileaflet valve. Leaflet mobility is normal. No regurgitation. No stenosis. Tricuspid Valve Normal leaflets. Leaflet mobility is normal. Mild regurgitation. No stenosis. Pulmonic Valve Normal structure. No regurgitation. No stenosis. Aorta No dilation to extent seen. Pericardium Appears normal. No pericardial effusion. Reading Providers Reading Role Read Date Montrell Warren MD Echo [place] 11/21/2022 Left Heart Measurements LV - Systole LV EDV BP 62 mL LV ESV BP 18 mL BP EF 71 % LV stroke volume BP (ml) 44 mL LV stroke volume index BP 25 mL/m2 LV - Diastole MV pk E livier 0.74 m/s MV pk A livier 0.8 m/s E/A ratio 0.93 e' septal pk livier 0.11 m/s e' lateral pk livier 0.06 m/s Avg e' pk livier 0.09 m/s E/e' septal ratio 6.55 E/e' lateral ratio 11.8 Avg E/e' ratio 9.18 LV - HCM AV LVOT peak gradient 8 mmHg Left Atrium LA ESV SP 4CH (MOD) 37 mL LA ESV SP 2CH (MOD) 49 mL LA ESV BP (MOD) index 25 mL/m2 Right Heart Measurements RV - 2D RV basal diam 4.42 cm RV mid diam 2.73 cm RV long diam 7.21 cm RV Area diastolic 14.37 cm2 RV Area systolic 8.54 cm2 RV Fractional area change 40.6 % RV - Doppler TAPSE 2.68 cm RV S' 18.37 cm/s Right Atrium RA vol index 4CH (MOD) 36.93 mL/m2 Doppler Measurements - Aortic Valve Stenosis LVOT diameter 2.06 cm LVOT area 3.33 cm2 LVOT peak livier 1.41 m/s LVOT peak VTI 24.04 cm Stroke Volume 80 cm/mL Stroke volume index 46 Ao peak livier 1.91 m/s Ao VTI 34.55 cm AV peak gradient 15 mmHG AV mean gradient 8 mmHg DI (VTI) 0.7 m/2 DI (Vmax) 0.74 AL (continuity Vmax) 2.46 cm2 AL index (continuity Vmax) 1.4 m/s AL (continuity VTI) 2.32 cm2 AL index (continuity VTI) 1.32 cm2/m2 LVOT stroke volume 80 cm3 LVOT stroke volume index 45.5 ml/m2 Doppler Measurements - Mitral Valve Stenosis MV pk E livier 0.74 m/s MV pk A livier 0.8 m/s E/A ratio 0.93 MV stenosis pressure 1/2 time 77.71 ms MV valve area p 1/2 method 2.83 cm2 PISA-MS MV pk E livier 0.74 m/s Doppler Measurements - Tricuspid Valve Regurgitation TR pk livier 2.42 m/s TR pk grad 23 mmHg Doppler Measurements - Pulmonic Valve Stenosis PV PK LIVIER 0.78 m/s PV VTI 13.5 cm PV peak gradient 2 mmHg PV mean gradient 2 mmHg RVOT peak livier 0.62 m/s RVOT peak VTI 8.68 cm RVOT peak gradient 2 mmHg Performing Staff Rona Conroy RDCS Study Details A complete echocardiography study was performed. Imaging system used: Siemens. Indications Indications for study: stroke/tia. Exam Details Performed Procedure Technologist Supporting Staff Performing Physician NC ECHOCARDIOGRAM W/O 3D Rona Conroy RDCS Appointment Date/Status Modality Department 11/21/2022 Arrived ECHO TESTING, [facility] ECHOCARDIOGRAPHY ROSS Begin Exam End Exam 11/21/2022 7:39 AM 11/21/2022 11:55 AM Vitals Height Weight BSA (Calculated - sq m) BP Pulse 1.765 m (5' 9.49 ) 61.6 kg (135 lb 12.9 oz) 1.76 m2 130/63 61 Signed at 1228 EST External Results Report There is an external results report available. Patient Release Status: This result is not viewable because no one can access it in [employer]. ECHOCARDIOGRAM: Patient Communication Released Not seen ABN Associated with this Order There is no ABN associated with this order. Normal [facility] EXTRA LIGHT BLUE TOP DOUBLE SPIN LUPUSon 11-21-2022 Dummy LRR - Route to Double Spin Received [facility] FIBRINOGEN, CLOTTABLEon 10-28 Fibrinogen Coag (PPP) [Mass/Vol] 565 mg/dL High 220 - 410 mg/dL [facility] Comment on above: Functional Fibrinoge n (activity) levels can be affected by direct thrombin inhibitors such as heparins (>2.0 IU/ml) and dabigatran. Abnormal results should be interpreted with caution. Interpretation and review of laboratory results Abnormal [facility] Fibrinogen-Clottable 565 mg/dL High 220-410 [facility] Comment on above: Result Comment: Func tional Fibrinogen (activity) levels can be affected by direct thrombin inhibitors such as heparins (>2.0 IU/ml) and dabigatran. Abnormal results should be interpreted with caution. Performed By: #### F IB, [id number] #### [facility] (DEFAULT) [address] [place] [address] GLUCOSE POCon 11-21-2022 Glucose [Mass/Vol] 136 mg/dL High 70 - 99 mg/dL [facility] Comment on above: Notified RNread back Interpretation and review of laboratory results Abnormal [facility] POC Sample Type CAPBL [facility] Test performed at address of the patient encounter. [facility] LAWUP-PATHOrdered By: Johnny Doll on 11-21-2022 Pathologist interpretation (Unsp spec) [Interp] Coagulation assays for the presence of a Lupus Anticoagulant (LA) are NEGATIVE at this time. [facility] Work Phone: Pathologist interpretation (Unsp spec) [Interp] Johnny Doll MD [facility] Work Phone: [facility] Work Phone: LAWUP-PATHon 11-21-2022 Interpretation By: Johnny Doll MD Normal [facility] Comment on above: Performed By: #### C HM7 #### [facility] (DEFAULT) [address] [place] [address] 49578 Lupus Anticoagulant Interpretation Normal [facility] Comment on above: Result Comment: Coag ulation assays for the presence of a Lupus Anticoagulant (LA) are NEGATIVE at this time. Performed By: #### C HM7 #### [facility] (DEFAULT) [address] [place] [address] 07687 LAWUP-ROUTon 11-21-2022 INR Coag (PPP) [Relative time] 1.2 {INR} High 0.9-1.1 [facility] Comment on above: Performed By: #### F JOCELINE [id number] #### [facility] (DEFAULT) [address] [place] [address] 16483 PT Coag (PPP) [Time] 14.9 s High 11.9-14.2 [facility] Comment on above: Performed By: #### F JOCELINE [id number] #### [facility] (DEFAULT) [address] [place] [address] 39941 Thrombin Time 16.2 sec Normal 13.0-20.0 [facility] Comment on above: Performed By: #### F IB, [id number] #### [facility] (DEFAULT) [address] [place] [address] TT Mixing Study With Protamine Sulfate Not Indicated Normal [facility] Comment on above: Performed By: #### F IB, [id number] #### [facility] (DEFAULT) [address] [place] [address] 62082 LAWUP-ROUTOrdered By: Gayle Back on 11-21-2022 INR Coag (Bld) [Relative time] 1.2 {INR} High 0.9 - 1.1 [facility] Interpretation and review of laboratory results Abnormal [facility] PT Coag (PPP) [Time] 14.9 s High [facility] Thrombin time.factor substitution immediately after addition of bovine thrombin Coag (PPP) [Time] 16.2 [facility] TT Mixing Study With Protamine Sulfate Not Indicated [facility] LAWUP-SPECOrdered By: Ledy Conrad on 11-21-2022 aPTT.lupus sensitive Coag (PPP) [Time] 30.0 NINF [facility] dRVVT Confirm Ratio Not Indicated [facility] dRVVT Normalized Ratio Not Indicated [facility] dRVVT/dRVVT.excess phospholipid Coag (PPP) [Ratio] 0.80 NINF - 1.19 [facility] Hexagonal PL Neutralization Not Indicated [facility] PTT-Lupus Sensitive Mix With Normal Plasma Not Indicated [facility] LAWUP-SPECon 11-21-2022 dRVVT Confirm Ratio Not Indicated Normal [facility] Comment on above: Performed By: #### C HM7 #### [facility] (DEFAULT) [address] [place] [address] 64724 dRVVT Normalized Ratio Not Indicated Normal [facility] Comment on above: Performed By: #### C HM7 #### [facility] (DEFAULT) [address] [place] [address] 96984 dRVVT Screen Ratio 0.80 Normal <=1.19 [facility] Comment on above: Performed By: #### C HM7 #### [facility] (DEFAULT) [address] [place] [address] Neutralization Not Indicated Normal [facility] Comment on above: Performed By: #### C HM7 #### [facility] (DEFAULT) [address] [place] [address] 37633 PTT-Lupus Sensitive 30.0 sec Normal <=43.9 [facility] Comment on above: Performed By: #### C HM7 #### [facility] (DEFAULT) [address] [place] [address] 45469 PTT-Lupus Sensitive Mix With Normal Plasma Not Indicated Normal [facility] Comment on above: Performed By: #### C HM7 #### [facility] (DEFAULT) [address] [place] [address] 97708 MAGNESIUMon 11-21-2022 Magnesium [Mass/Vol] 2.1 mg/dL Normal 1.6-2.6 [facility] Comment on above: Performed By: #### Snehal [id number], [id number] #### [facility] (DEFAULT) [address] [place] [address] 60088 Magnesium [Mass/Vol] 2.1 mg/dL 1.6 - 2 .6 mg/dL [facility] No Panel Informationon 11-21 [facility] Interpretation and review of laboratory results Abnormal [facility] Interpretation and review of laboratory results Normal [facility] PHOSPHATE, INORGANICon 11-21 Phosphorous 3.7 mg/dL Normal 2.2-4.6 [facility] Comment on above: Performed By: #### Snehal [id number], [id number] #### [facility] (DEFAULT) [address] [place] [address] 33860 Phosphate [Mass/Vol] 3.7 mg/dL 2.2 - 4 .6 mg/dL [facility] PT,INR,PTTon 11-21-2022 aPTT Coag (Bld) [Time] 26.4 s Normal 24.0-34.3 [facility] Comment on above: Performed By: #### C HM7 #### [facility] (DEFAULT) [address] [place] [address] 71993 INR Coag (PPP) [Relative time] 1.1 {INR} Normal 0.9-1.1 [facility] Comment on above: Performed By: #### C HM7 #### [facility] (DEFAULT) [address] [place] [address] 26498 PT Coag (PPP) [Time] 14.7 s High 11.9-14.2 [facility] Comment on above: Performed By: #### C HM7 #### [facility] (DEFAULT) [address] [place] [address] 29785 aPTT Coag (PPP) [Time] 26.4 s [facility] INR Coag (Bld) [Relative time] 1.1 {INR} 0.9 - 1.1 [facility] Interpretation and review of laboratory results Abnormal [facility] PT Coag (PPP) [Time] 14.7 s High [facility] ABORH TYPE RECONFIRMATIONon 11-20-2022 ABO/RH(D) TYPE Positive Normal [facility] Comment on above: Performed By: #### F IB, [id number] #### [facility] (DEFAULT) [address] [place] [address] 14928 ABO/RH(D) TYPE Positive [facility] C REACTIVE PROTEINon 023 CRP High sensitivity method [Mass/Vol] 22.69 mg/L High NINF - 10.00 mg/L [facility] Interpretation and review of laboratory results Abnormal [facility] CRP [Mass/Vol] 22.69 mg/L High <10.00 [facility] Comment on above: Performed By: #### F IB, [id number] #### [facility] (DEFAULT) [address] [place] [address] 98383 CBC AND ELECTRONIC DIFFon Abs Baso Auto < Normal 0.00-0.09 [facility] Comment on above: Performed By: #### C HM7 #### [facility] (DEFAULT) [address] [place] [address] 11791 Abs Eos Auto < Normal 0.00-0.48 [facility] Comment on above: Performed By: #### C HM7 #### [facility] (DEFAULT) [address] [place] [address] 06233 Basophils/100 WBC (Bld) 0.2 % Normal [facility] Comment on above: Performed By: #### C HM7 #### [facility] (DEFAULT) [address] [place] [address] 48783 DIFF STATUS Electronic Differential Normal [facility] Comment on above: Performed By: #### C HM7 #### [facility] (DEFAULT) [address] [place] [address] 10007 Eosinophils/100 WBC (Bld) 0.1 % Normal [facility] Comment on above: Performed By: #### C HM7 #### [facility] (DEFAULT) [address] [place] [address] 29404 Hematocrit (Bld) [Volume fraction] 42.3 % Normal 39.6-48.8 [facility] Comment on above: Performed By: #### C HM7 #### [facility] (DEFAULT) [address] [place] [address] 70875 Hemoglobin (Bld) [Mass/Vol] 13.9 g/dL Normal 13.4-16.8 [facility] Comment on above: Performed By: #### C HM7 #### [facility] (DEFAULT) [address] [place] [address] 44481 Immature Grans % 0.3 % Normal [facility] Comment on above: Performed By: #### C HM7 #### [facility] (DEFAULT) [address] [place] [address] 81843 Immature Grans Absolute 0.04 K/uL Normal <=0.07 [facility] Comment on above: Performed By: #### C HM7 #### [facility] (DEFAULT) [address] [place] [address] 18480 Lymphocytes (Bld) [#/Vol] 1.84 10*3/uL Normal 0.83-3.57 [facility] Comment on above: Performed By: #### C HM7 #### [facility] (DEFAULT) [address] [place] [address] 66519 Lymphocytes/100 WBC (Bld) 13.2 % Normal [facility] Comment on above: Performed By: #### C HM7 #### [facility] (DEFAULT) [address] [place] [address] 50045 MCV (RBC) [Entitic vol] 88.3 fL Normal 79.0-94.5 [facility] Comment on above: Performed By: #### C HM7 #### [facility] (DEFAULT) [address] [place] [address] 12100 Mean Cell Hgb 29.0 pg Normal 26.1-33.3 [facility] Comment on above: Performed By: #### C HM7 #### [facility] (DEFAULT) [address] [place] [address] 24030 Mean Cell Hgb Conc 32.9 g/dL Normal 31.9-36.5 [facility] Comment on above: Performed By: #### C HM7 #### [facility] (DEFAULT) [address] [place] [address] 57827 Monocytes (Bld) [#/Vol] 1.33 10*3/uL High 0.24-0.93 [facility] Comment on above: Performed By: #### C HM7 #### [facility] (DEFAULT) [address] [place] [address] 26238 Monocytes/100 WBC (Bld) 9.6 % Normal [facility] Comment on above: Performed By: #### C HM7 #### [facility] (DEFAULT) [address] [place] [address] 12825 Nucleated RBC 0.0 /100 WBC Normal <=0.2 [facility] Comment on above: Performed By: #### C HM7 #### [facility] (DEFAULT) [address] [address] Platelet mean volume (Bld) [Entitic vol] 10.6 fL Normal 8.7-12.3 [facility] Comment on above: Performed By: #### C HM7 #### [facility] (DEFAULT) [address] [place] [address] 32079 Platelets (Bld) [#/Vol] 225 10*3/uL Normal 146-337 [facility] Comment on above: Performed By: #### C HM7 #### [facility] (DEFAULT) [address] [address] RBC (Bld) [#/Vol] 4.79 10*6/uL Normal 4.38-5.83 [facility] Comment on above: Performed By: #### C HM7 #### [facility] (DEFAULT) [address] [place] [address] 68357 RBC Distribution 13.9 % Normal 10.9-14.3 [facility] Comment on above: Performed By: #### C HM7 #### [facility] (DEFAULT) [address] [place] [address] 03367 Segs + Bands Auto 76.6 % Normal [facility] Comment on above: Performed By: #### C HM7 #### [facility] (DEFAULT) [address] [place] [address] Segs + Bands,Absolute Auto 10.66 K/uL High 1.57-6.19 [facility] Comment on above: Performed By: #### C HM7 #### [facility] (DEFAULT) [address] [place] [address] WBC (Bld) [#/Vol] 13.91 10*3/uL High 3.73-10.10 [facility] Comment on above: Performed By: #### C HM7 #### [facility] (DEFAULT) [address] [place] [address] Basophils (Bld) [#/Vol] K/uL 0.00 - 0.09 K/uL [facility] Basophils/100 WBC (Bld) 0.2 % [facility] Differential cell count method Nom (Bld) Electronic Differential [facility] Eosinophils (Bld) [#/Vol] K/uL 0.00 - 0.48 K/uL [facility] Eosinophils/100 WBC (Bld) 0.1 % [facility] Erythrocyte distribution width (RBC) [Ratio] 13.9 % 10.9 - 14.3 % [facility] Hematocrit (Bld) [Volume fraction] 42.3 % 39.6 - 48.8 % [facility] Hemoglobin (Bld) [Mass/Vol] 13.9 g/dL 13.4 - 16.8 g/dL [facility] Immature granulocytes (Bld) [#/Vol] 0.04 10*3/uL NINF - 0.07 K/uL [facility] Immature granulocytes/100 WBC (Bld) 0.3 % [facility] Interpretation and review of laboratory results Abnormal [facility] Lymphocytes (Bld) [#/Vol] 1.84 10*3/uL 0.83 - 3.57 K/uL [facility] Lymphocytes/100 WBC (Bld) 13.2 % [facility] MCH (RBC) [Entitic mass] 29.0 pg 26.1 - 33.3 pg [facility] MCHC (RBC) [Mass/Vol] 32.9 g/dL 31.9 - 36.5 g/dL [facility] MCV (RBC) [Entitic vol] 88.3 fL 79.0 - 94.5 fL [facility] Monocytes (Bld) [#/Vol] 1.33 10*3/uL High 0.24 - 0.93 K/uL [facility] Monocytes/100 WBC (Bld) 9.6 % [facility] Neutrophils (Bld) [#/Vol] 10.66 10*3/uL High 1.57 - 6.19 K/uL [facility] Nucleated RBC/100 WBC (Bld) [Ratio] 0.0 % BANNERF [facility] Platelet mean volume (Bld) [Entitic vol] 10.6 fL 8.7 - 12.3 fL [facility] Platelets (Bld) [#/Vol] 225 10*3/uL 146 - 337 K/uL [facility] RBC (Bld) [#/Vol] 4.79 10*6/uL [facility] Segmented neutrophils/100 WBC (Bld) 76.6 % [facility] WBC (Bld) [#/Vol] 13.91 10*3/uL High 3.73 - 10 .10 K/uL [facility] CHM 7 - EDon 11-20-2022 Anion gap [Moles/Vol] 12 mmol/L Normal 7-17 [facility] Comment on above: Performed By: #### F IB, [id number] #### [facility] (DEFAULT) [address] [place] [address] 96309 Chloride [Moles/Vol] 106 mmol/L Normal 98-108 [facility] Comment on above: Performed By: #### F IB, [id number] #### [facility] (DEFAULT) [address] [place] [address] CO2 [Moles/Vol] 22 mmol/L Normal 21-31 [facility] Comment on above: Performed By: #### F IB, [id number] #### [facility] (DEFAULT) [address] [place] [address] 70909 Creatinine [Mass/Vol] 0.91 mg/dL Normal 0.70-1.30 [facility] Comment on above: Performed By: #### F IB, [id number] #### [facility] (DEFAULT) [address] [place] [address] 39583 GFR/1.73 sq M.predicted among non-blacks MDRD (S/P/Bld) [Vol rate/Area] 86 mL/min/{1.73_m2} Normal >=60 [facility] Comment on above: Result Comment: Repo rted eGFR is based on the CKD-EPI 2020 equation using creatinine, age, and sex. Performed By: #### F IB, [id number] #### [facility] (DEFAULT) [address] [address] Glucose [Mass/Vol] 110 mg/dL High 70-99 [facility] Comment on above: Performed By: #### F IB, [id number] #### [facility] (DEFAULT) [address] [address] Osmolality [Osmolality] 288 mosm/kg Normal 278-305 [facility] Comment on above: Performed By: #### F IB, [id number] #### [facility] (DEFAULT) [address] [place] [address] 50553 Potassium [Moles/Vol] 4.0 mmol/L Normal 3.5-5.0 [facility] Comment on above: Performed By: #### F IB, [id number] #### [facility] (DEFAULT) [address] [address] Sodium [Moles/Vol] 136 mmol/L Normal 135-145 [facility] Comment on above: Performed By: #### F IB, [id number] #### [facility] (DEFAULT) [address] [address] Urea nitrogen [Mass/Vol] 19 mg/dL Normal 7-25 [facility] Comment on above: Performed By: #### F IB, [id number] #### [facility] (DEFAULT) [address] [place] [address] Urea nitrogen/Creatinine [Mass ratio] 21 mg/mg Normal [facility] Comment on above: Performed By: #### F IB, [id number] #### [facility] (DEFAULT) [address] [place] [address] Anion gap [Moles/Vol] 12 mmol/L 7 - 17 mmol/L [facility] Chloride [Moles/Vol] 106 mmol/L 98 - 10 8 mmol/L [facility] CO2 [Moles/Vol] 22 mmol/L 21 - 31 mmol/L [facility] Creatinine [Mass/Vol] 0.91 mg/dL 0.70 - 1.30 mg/dL [facility] GFR/1.73 sq M.predicted CKD-EPI (S/P/Bld) [Vol rate/Area] 86 - PINF [facility] Comment on above: Reported eGFR is bas ed on the CKD-EPI 2020 equation using creatinine, age, and sex. Glucose [Mass/Vol] 110 mg/dL High 70 - 99 mg/dL [facility] Osmolality Calc [Osmolality] 288 [facility] Potassium [Moles/Vol] 4.0 mmol/L 3.5 - 5.0 mmol/L [facility] Sodium [Moles/Vol] 136 mmol/L 135 - 145 mmol/L [facility] Urea nitrogen [Mass/Vol] 19 mg/dL 7 - 25 mg/dL [facility] Urea nitrogen/Creatinine [Mass ratio] 21 mg/mg [facility] CT ANGIO BRAIN/NECKon 2022 CT ANGIO BRAIN/NECK EXAM: CT ANGIO BRAIN/NECK, 11/20/2022 05:27 AM COMPARISON: Same day CT head CLINICAL INDICATIONS: 77 years Male Suspected Stroke; TECHNIQUE: A series of transaxial multislice computerized tomographic images are obtained with helical technique from top of aortic arch to vertex following bolus intravenous administration of nonionic contrast. Axial thin section source images, as well as sagittal and coronal thin section reformats, were provided at the scanner. Additional multiplanar and 3D reconstructions were provided. CONTRAST:iohexol (OMNIPAQUE) 350 MG/ML injection 1-171 mL; Route of Administration: Intravenous; Dose: 100 mL. FINDINGS: CTA NECK: Aortic Arch: There is conventional origin of the great vessels from the aortic arch. Mixed atherosclerosis without origin stenosis. Carotid Arteries: The right common, internal and external carotid arteries are normal in caliber without evidence of dissection or pseudoaneurysm. Atherosclerosis at the carotid bifurcation without significant stenosis. The left common, internal and external carotid arteries are normal in caliber without evidence of dissection or pseudoaneurysm. Mixed atherosclerosis at the carotid bifurcation without significant stenosis. Vertebral Arteries: Bilateral vertebral arteries show no significant stenosis at the origin or elsewhere. Other: Upper lobe predominant centrilobular emphysema. In right thyroid lobe with heterogeneous 2.1 x 1.9 cm lesion (series 5 image 420). CTA INTRACRANIAL: Mixed atherosclerosis of the intracavernous carotid arteries resulting in mild bilateral stenosis. No major anatomical variations at [place]. Anterior, middle and posterior cerebral arteries appear unremarkable. No spot sign into the right occipital and parenchymal hemorrhage. Intracranial vertebral arteries are unremarkable. Basilar artery is unremarkable. No aneurysm identified. Relatively increased vascularity adjacent to tentorium. Long segment nonocclusive filling defect in the left transverse and sigmoid venous sinuses (series 5 image 143) with partial opacification related to channeling/recanalizati on within the residual sigmoid extending from the tentorium. IMPRESSION: 1. No spot sign, large vessel arterial occlusion, dissection or aneurysm. 2. 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 Recommend further evaluation with MRA brain. 3. Right thyroid lobe heterogeneous lesion. Recommend correlation with prior imaging if available, or may consider nonemergent thyroid ultrasound. I personally viewed and interpreted these images and I have reviewed and approved this report. Normal [facility] IMPRESSION: 1. No spot sign, large vessel arterial occlusion, dissection or aneurysm. 2. 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 Recommend further evaluation with MRA brain. 3. Right thyroid lobe heterogeneous lesion. Recommend correlation with prior imaging if available, or may consider nonemergent thyroid ultrasound. I personally viewed and interpreted these images and I have reviewed and approved this report. OLOGY EXAM: CT ANGIO BRAIN/NECK, 11/20/2022 05:27 AM COMPARISON: Same day CT head CLINICAL INDICATIONS: 77 years Male Suspected Stroke; TECHNIQUE: A series of transaxial multislice computerized tomographic images are obtained with helical technique from top of aortic arch to vertex following bolus intravenous administration of nonionic contrast. Axial thin section source images, as well as sagittal and coronal thin section reformats, were provided at the scanner. Additional multiplanar and 3D reconstructions were provided. CONTRAST:iohexol (OMNIPAQUE) 350 MG/ML injection 1-171 mL; Route of Administration: Intravenous; Dose: 100 mL. FINDINGS: CTA NECK: Aortic Arch: There is conventional origin of the great vessels from the aortic arch. Mixed atherosclerosis without origin stenosis. Carotid Arteries: The right common, internal and external carotid arteries are normal in caliber without evidence of dissection or pseudoaneurysm. Atherosclerosis at the carotid bifurcation without significant stenosis. The left common, internal and external carotid arteries are normal in caliber without evidence of dissection or pseudoaneurysm. Mixed atherosclerosis at the carotid bifurcation without significant stenosis. Vertebral Arteries: Bilateral vertebral arteries show no significant stenosis at the origin or elsewhere. Other: Upper lobe predominant centrilobular emphysema. In right thyroid lobe with heterogeneous 2.1 x 1.9 cm lesion (series 5 image 420). CTA INTRACRANIAL: Mixed atherosclerosis of the intracavernous carotid arteries resulting in mild bilateral stenosis. No major anatomical variations at [place]. Anterior, middle and posterior cerebral arteries appear unremarkable. No spot sign into the right occipital and parenchymal hemorrhage. Intracranial vertebral arteries are unremarkable. Basilar artery is unremarkable. No aneurysm identified. Relatively increased vascularity adjacent to tentorium. Long segment nonocclusive filling defect in the left transverse and sigmoid venous sinuses (series 5 image 143) with partial opacification related to channeling/recanalizati on within the residual sigmoid extending from the tentorium. RADIOLOGY Tony García MD - 11/20/2022 EXAM: CT ANGIO BRAIN/NECK, 11/20/2022 05:27 AM COMPARISON: Same day CT head CLINICAL INDICATIONS: 77 years Male Suspected Stroke; TECHNIQUE: A series of transaxial multislice computerized tomographic images are obtained with helical technique from top of aortic arch to vertex following bolus intravenous administration of nonionic contrast. Axial thin section source images, as well as sagittal and coronal thin section reformats, were provided at the scanner. Additional multiplanar and 3D reconstructions were provided. CONTRAST:iohexol (OMNIPAQUE) 350 MG/ML injection 1-171 mL; Route of Administration: Intravenous; Dose: 100 mL. FINDINGS: CTA NECK: Aortic Arch: There is conventional origin of the great vessels from the aortic arch. Mixed atherosclerosis without origin stenosis. Carotid Arteries: The right common, internal and external carotid arteries are normal in caliber without evidence of dissection or pseudoaneurysm. Atherosclerosis at the carotid bifurcation without significant stenosis. The left common, internal and external carotid arteries are normal in caliber without evidence of dissection or pseudoaneurysm. Mixed atherosclerosis at the carotid bifurcation without significant stenosis. Vertebral Arteries: Bilateral vertebral arteries show no significant stenosis at the origin or elsewhere. Other: Upper lobe predominant centrilobular emphysema. In right thyroid lobe with heterogeneous 2.1 x 1.9 cm lesion (series 5 image 420). CTA INTRACRANIAL: Mixed atherosclerosis of the intracavernous carotid arteries resulting in mild bilateral stenosis. No major anatomical variations at [place]. Anterior, middle and posterior cerebral arteries appear unremarkable. No spot sign into the right occipital and parenchymal hemorrhage. Intracranial vertebral arteries are unremarkable. Basilar artery is unremarkable. No aneurysm identified. Relatively increased vascularity adjacent to tentorium. Long segment nonocclusive filling defect in the left transverse and sigmoid venous sinuses (series 5 image 143) with partial opacification related to channeling/recanalizati on within the residual sigmoid extending from the tentorium. IMPRESSION IMPRESSION: 1. No spot sign, large vessel arterial occlusion, dissection or aneurysm. 2. 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 Recommend further evaluation with MRA brain. 3. Right thyroid lobe heterogeneous lesion. Recommend correlation with prior imaging if available, or may consider nonemergent thyroid ultrasound. I personally viewed and interpreted these images and I have reviewed and approved this report. [facility] Radiology Study observation (narrative) [facility] CT HEAD WITHOUT CONTRASTon 0 11-20-2022 CT HEAD WITHOUT CONTRAST EXAM: CT HEAD WITHOUT CONTRAST, 11/20/2022 11:43 AM COMPARISON: None. CLINICAL INDICATIONS: 77 years Male Parenchymal hemorrhage, follow-up; RELEVANT CLINICAL HISTORY: Perform in 6 hours; TECHNIQUE: A series of transaxial computerized tomographic images are obtained from base of skull to vertex without intravenous contrast. Axial whole-head and thin section posterior fossa slices are provided. Reformats: Sagittal and coronal. FINDINGS: Stable appearance of the right occipital intraparenchymal hemorrhage measuring 3.3 x 3.1 in axial diameter. There is again significant intraventricular extension into the lateral ventricles. Minimal local mass effect without midline shift. Stable from 3-4 mm subdural hemorrhage along the right posterior falx and right tentorium. No change in trace subarachnoid blood in the sylvian fissures and overlying the left cerebellar hemisphere. Remote left frontal insult. Scattered patchy hypodensities in the periventricular and subcortical white matter compatible with sequelae of chronic microvascular disease with prominent irregularities along the superior cerebellar surfaces may related to arachnoid adhesions more prominent on the left. 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 No progressing ventricular enlargement. Calvarium and skull base appear intact. Partial opacification of the ethmoidal air cells. Chronic/hyperdense opacification of the right sphenoid sinus. IMPRESSION: 1. Stable appearance of the right occipital parenchymal hematoma. 2. Stable degree of ventricular extension of blood products without progressing hydrocephalus. 3. Stable small volume of subdural blood products and subarachnoid hemorrhage. Normal [facility] CT Head WO contraston 2022 IMPRESSION: 1. Stable appearance of the right occipital parenchymal hematoma. 2. Stable degree of ventricular extension of blood products without progressing hydrocephalus. 3. Stable small volume of subdural blood products and subarachnoid hemorrhage. OLOGY EXAM: CT HEAD WITHOU T CONTRAST, 11/20/2022 11:43 AM COMPARISON: None. CLINICAL INDICATIONS: 77 years Male Parenchymal hemorrhage, follow-up; RELEVANT CLINICAL HISTORY: Perform in 6 hours; TECHNIQUE: A series of transaxial computerized tomographic images are obtained from base of skull to vertex without intravenous contrast. Axial whole-head and thin section posterior fossa slices are provided. Reformats: Sagittal and coronal. FINDINGS: Stable appearance of the right occipital intraparenchymal hemorrhage measuring 3.3 x 3.1 in axial diameter. There is again significant intraventricular extension into the lateral ventricles. Minimal local mass effect without midline shift. Stable from 3-4 mm subdural hemorrhage along the right posterior falx and right tentorium. No change in trace subarachnoid blood in the sylvian fissures and overlying the left cerebellar hemisphere. Remote left frontal insult. Scattered patchy hypodensities in the periventricular and subcortical white matter compatible with sequelae of chronic microvascular disease with prominent irregularities along the superior cerebellar surfaces may related to arachnoid adhesions more prominent on the left. 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 No progressing ventricular enlargement. Calvarium and skull base appear intact. Partial opacification of the ethmoidal air cells. Chronic/hyperdense opacification of the right sphenoid sinus. RADIOLOGY Nicholas Kerns MD - 11/20/2022 EXAM: CT HEAD WITHOUT CONTRAST, 11/20/2022 11:43 AM COMPARISON: None. CLINICAL INDICATIONS: 77 years Male Parenchymal hemorrhage, follow-up; RELEVANT CLINICAL HISTORY: Perform in 6 hours; TECHNIQUE: A series of transaxial computerized tomographic images are obtained from base of skull to vertex without intravenous contrast. Axial whole-head and thin section posterior fossa slices are provided. Reformats: Sagittal and coronal. FINDINGS: Stable appearance of the right occipital intraparenchymal hemorrhage measuring 3.3 x 3.1 in axial diameter. There is again significant intraventricular extension into the lateral ventricles. Minimal local mass effect without midline shift. Stable from 3-4 mm subdural hemorrhage along the right posterior falx and right tentorium. No change in trace subarachnoid blood in the sylvian fissures and overlying the left cerebellar hemisphere. Remote left frontal insult. Scattered patchy hypodensities in the periventricular and subcortical white matter compatible with sequelae of chronic microvascular disease with prominent irregularities along the superior cerebellar surfaces may related to arachnoid adhesions more prominent on the left. 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 No progressing ventricular enlargement. Calvarium and skull base appear intact. Partial opacification of the ethmoidal air cells. Chronic/hyperdense opacification of the right sphenoid sinus. IMPRESSION IMPRESSION: 1. Stable appearance of the right occipital parenchymal hematoma. 2. Stable degree of ventricular extension of blood products without progressing hydrocephalus. 3. Stable small volume of subdural blood products and subarachnoid hemorrhage. [facility] Radiology Study observation (narrative) [facility] CT Head WO contrastOrdered B y: Nicholas Kerns on 11-20-2022 [facility] Work Phone: CT Head limitedon 11-20-2022 IMPRESSION: 1. Right occipital intraparenchymal hemorrhage with intraventricular extension. Thin subdural hemorrhage and trace subarachnoid hemorrhage. 2. 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 A Critical finding has been discussed with Chris Contreras MD with a read back to Imelda Milton MD on 11/20/2022 5:22 AM . I personally viewed and interpreted these images and I have reviewed and approved this report. OLOGY EXAM: CT STROKE HEAD-STROKE ALERT ONLY, 11/20/2022 5:18 AM COMPARISON: None. CLINICAL INDICATIONS: 77 years Male Suspected Stroke; TECHNIQUE: A series of transaxial computerized tomographic images are obtained from base of skull to vertex without intravenous contrast. Axial whole-head and thin section posterior fossa slices are provided. Reformats: Sagittal and coronal. FINDINGS: Right occipital lobe intraparenchymal hemorrhage measuring 3.3 x 3.1 x 2.6 cm with significant intraventricular extension into the lateral ventricles. Minimal local mass effect without midline shift. Thin 3-4 mm subdural hemorrhage along the right posterior falx and right tentorium. Trace subarachnoid blood in the sylvian fissures and overlying the left cerebellar hemisphere. Remote left frontal insult. Scattered patchy hypodensities in the periventricular and subcortical white matter compatible with sequelae of chronic microvascular disease with prominent irregularities along the superior cerebellar surfaces may related to arachnoid adhesions more prominent on the left. 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 There is a low-density filling defect in the left transverse and sigmoid sinus better seen on CT angiogram. Calvarium and skull base appear intact. Partial opacification of the ethmoidal air cells. Chronic/hyperdense opacification of the right sphenoid sinus. RADIOLOGY Tony García MD - 11/20/2022 EXAM: CT STROKE HEAD-STROKE ALERT ONLY, 11/20/2022 5:18 AM COMPARISON: None. CLINICAL INDICATIONS: 77 years Male Suspected Stroke; TECHNIQUE: A series of transaxial computerized tomographic images are obtained from base of skull to vertex without intravenous contrast. Axial whole-head and thin section posterior fossa slices are provided. Reformats: Sagittal and coronal. FINDINGS: Right occipital lobe intraparenchymal hemorrhage measuring 3.3 x 3.1 x 2.6 cm with significant intraventricular extension into the lateral ventricles. Minimal local mass effect without midline shift. Thin 3-4 mm subdural hemorrhage along the right posterior falx and right tentorium. Trace subarachnoid blood in the sylvian fissures and overlying the left cerebellar hemisphere. Remote left frontal insult. Scattered patchy hypodensities in the periventricular and subcortical white matter compatible with sequelae of chronic microvascular disease with prominent irregularities along the superior cerebellar surfaces may related to arachnoid adhesions more prominent on the left. 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 There is a low-density filling defect in the left transverse and sigmoid sinus better seen on CT angiogram. Calvarium and skull base appear intact. Partial opacification of the ethmoidal air cells. Chronic/hyperdense opacification of the right sphenoid sinus. IMPRESSION IMPRESSION: 1. Right occipital intraparenchymal hemorrhage with intraventricular extension. Thin subdural hemorrhage and trace subarachnoid hemorrhage. 2. 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 A Critical finding has been discussed with Chris Contreras MD with a read back to Imelda Milton MD on 11/20/2022 5:22 AM . I personally viewed and interpreted these images and I have reviewed and approved this report. [facility] Radiology Study observation (narrative) [facility] CT Head limitedOrdered By: Carmen García on 11-20-2022 [facility] Work Phone: CT STROKE HEAD-STROKE ALERT ONLYon 11-20-2022 CT STROKE HEAD-STROKE ALERT ONLY EXAM: CT STROKE HEAD-STROKE ALERT ONLY, 11/20/2022 5:18 AM COMPARISON: None. CLINICAL INDICATIONS: 77 years Male Suspected Stroke; TECHNIQUE: A series of transaxial computerized tomographic images are obtained from base of skull to vertex without intravenous contrast. Axial whole-head and thin section posterior fossa slices are provided. Reformats: Sagittal and coronal. FINDINGS: Right occipital lobe intraparenchymal hemorrhage measuring 3.3 x 3.1 x 2.6 cm with significant intraventricular extension into the lateral ventricles. Minimal local mass effect without midline shift. Thin 3-4 mm subdural hemorrhage along the right posterior falx and right tentorium. Trace subarachnoid blood in the sylvian fissures and overlying the left cerebellar hemisphere. Remote left frontal insult. Scattered patchy hypodensities in the periventricular and subcortical white matter compatible with sequelae of chronic microvascular disease with prominent irregularities along the superior cerebellar surfaces may related to arachnoid adhesions more prominent on the left. 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 There is a low-density filling defect in the left transverse and sigmoid sinus better seen on CT angiogram. Calvarium and skull base appear intact. Partial opacification of the ethmoidal air cells. Chronic/hyperdense opacification of the right sphenoid sinus. IMPRESSION: 1. Right occipital intraparenchymal hemorrhage with intraventricular extension. Thin subdural hemorrhage and trace subarachnoid hemorrhage. 2. 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 A Critical finding has been discussed with Chris Contreras MD with a read back to Imelda Milton MD on 11/20/2022 5:22 AM . I personally viewed and interpreted these images and I have reviewed and approved this report. Normal [facility] GLUCOSE POCon 11-20-2022 Glucose [Mass/Vol] 101 mg/dL High 70 - 99 mg/dL [facility] Interpretation and review of laboratory results Abnormal [facility] POC Sample Type CAPBL [facility] Test performed at address of the patient encounter. [facility] Glucose [Mass/Vol] 99 mg/dL 70 - 99 mg/dL [facility] POC Sample Type CAPBL [facility] Test performed at address of the patient encounter. [facility] Glucose [Mass/Vol] 111 mg/dL High 70 - 99 mg/dL [facility] Interpretation and review of laboratory results Abnormal [facility] POC Sample Type CAPBL [facility] Test performed at address of the patient encounter. [facility] HEMOGLOBIN [id number] By: Jailyn Cooper on 11-20-2022 Average glucose Estimated from glycated hemoglobin (Bld) [Mass/Vol] 114 mg/dL [facility] HbA1c (Bld) [Mass fraction] 5.6 % 4.7 - 5.6 % [facility] HEMOGLOBIN A1Con 11-20-2022 Glucose [Mass/Vol] 114 mg/dL Normal [facility] Comment on above: Performed By: #### C HM7 #### [facility] (DEFAULT) [address] [place] [address] Hemoglobin A1C HPLC 5.6 % Normal 4.7-5.6 [facility] Comment on above: Performed By: #### C HM7 #### [facility] (DEFAULT) [address] [place] [address] HEPATIC FUNCTION PANELon Albumin [Mass/Vol] 3.7 g/dL Normal 3.5-5.0 [facility] Comment on above: Performed By: #### F IB, [id number] #### [facility] (DEFAULT) [address] [place] [address] ALP [Catalytic activity/Vol] 81 U/L Normal 32-126 [facility] Comment on above: Performed By: #### F IB, [id number] #### [facility] (DEFAULT) [address] [place] [address] 22116 ALT [Catalytic activity/Vol] 12 U/L Normal 10-52 [facility] Comment on above: Performed By: #### F IB, [id number] #### [facility] (DEFAULT) [address] [place] [address] 91358 AST [Catalytic activity/Vol] 24 U/L Normal 10-39 [facility] Comment on above: Performed By: #### F IB, [id number] #### [facility] (DEFAULT) [address] [place] [address] 14076 Bilirubin [Mass/Vol] 1.5 mg/dL High <1.5 [facility] Comment on above: Performed By: #### F IB, [id number] #### [facility] (DEFAULT) [address] [place] [address] Bilirubin.indirect [Mass/Vol] 0.2 mg/dL Normal <0.3 [facility] Comment on above: Performed By: #### F IB, [id number] #### [facility] (DEFAULT) [address] [place] [address]709 Protein [Mass/Vol] 6.3 g/dL Low 6.4-8.3 [facility] Comment on above: Performed By: #### F IB, [id number] #### [facility] (DEFAULT) [address] [place] [address]7716 Albumin [Mass/Vol] 3.7 g/dL 3.5 - 5.0 g/dL [facility] ALP [Catalytic activity/Vol] 81 U/L 32 - 126 U/L [facility] ALT [Catalytic activity/Vol] 12 U/L 10 - 52 U/L [facility] AST [Catalytic activity/Vol] 24 U/L 10 - 39 U/L [facility] Bilirubin [Mass/Vol] 1.5 mg/dL High NINF - 1.5 mg/dL [facility] Bilirubin.direct [Mass/Vol] 0.2 mg/dL NINF - 0.3 mg/dL [facility] Protein [Mass/Vol] 6.3 g/dL Low 6.4 - 8.3 g/dL [facility] HIGH SENSITIVITY TROPONIN I - SINGLE ORDERon 11-20-2022 hs-Troponin I 12 ng/L Normal <53 [facility] Comment on above: Order Comment: Acute Coronary Syndrome (ACS): Initial Evaluation and Management:[email or web address] Performed By: #### F IB, [id number] #### [facility] (DEFAULT) [address] [place] [address] Interpretation and review of laboratory results Normal [facility] Troponin I.cardiac High sensitivity method [Mass/Vol] 12 ng/L NINF - 53 ng/L [facility] LIPID PANEL WITH REFLEX TO M EASURED LDLon 11-20-2022 Cholesterol [Mass/Vol] 114 mg/dL NINF - 200 mg/dL [facility] Comment on above: [<200 mg/dL: Desirab le] [200-239 mg/dL: Borderline High] [>239 mg/dL: High] Cholesterol in HDL [Mass/Vol] 53 mg/dL 40 - PINF mg/dL [facility] Comment on above: [<40 mg/dL: Low (Hig h Risk)] [>59 mg/dL: High (Low Risk)] Cholesterol in HDL [Mass/Vol] 61 mg/dL NINF - 130 mg/dL [facility] Cholesterol in LDL [Mass/Vol] 48 mg/dL 0 - 99 mg/dL [facility] Comment on above: [<100 mg/dL: Optimal ] [100-129 mg/dL: Near Optimal] [130-159 mg/dL: Borderline High] [160-189 mg/dL: High] [>189 mg/dL: Very High] Cholesterol.total/Ch olesterol in HDL [Mass ratio] 2.2 {ratio} NINF - 4.5 [facility] Interpretation and review of laboratory results Normal [facility] Triglyceride [Mass/Vol] 63 mg/dL NINF - 150 mg/dL [facility] Comment on above: [<150 mg/dL: Desirab le] [150-199 mg/dL: Borderline] [200-499 mg/dL: High] [>500 mg/dL: Very High] Calculated LDL Cholesterol 48 mg/dL Normal 0-99 [facility] Comment on above: Result Comment: [<10 0 mg/dL: Optimal] [100-129 mg/dL: Near Optimal] [130-159 mg/dL: Borderline High] [160-189 mg/dL: High] [>189 mg/dL: Very High] Performed By: #### F IB, [id number] #### [facility] (DEFAULT) [address] [address] Cholesterol [Mass/Vol] 114 mg/dL Normal <200 [facility] Comment on above: Result Comment: [<20 0 mg/dL: Desirable] [200-239 mg/dL: Borderline High] [>239 mg/dL: High] Performed By: #### F IB, [id number] #### [facility] (DEFAULT) [address] [address] Cholesterol in HDL [Mass/Vol] 53 mg/dL Normal >=40 [facility] Comment on above: Result Comment: [<40 mg/dL: Low (High Risk)] [>59 mg/dL: High (Low Risk)] Performed By: #### F IB, [id number] #### [facility] (DEFAULT) [address] [place] [address] Non HDL Cholesterol 61 mg/dL Normal <130 [facility] Comment on above: Performed By: #### F IB, [id number] #### [facility] (DEFAULT) [address] [place] [address] Total Cholesterol/HDL Ratio 2.2 Normal <4.5 [facility] Comment on above: Performed By: #### F IB, [id number] #### [facility] (DEFAULT) [address] [place] [address] Triglyceride [Mass/Vol] 63 mg/dL Normal <150 [facility] Comment on above: Result Comment: [<15 0 mg/dL: Desirable] [150-199 mg/dL: Borderline] [200-499 mg/dL: High] [>500 mg/dL: Very High] Performed By: #### F IB, [id number] #### [facility] (DEFAULT) [address] [place] [address]687 MR Brain WO and W contrast I Von 11-20-2022 IMPRESSION: Right occipital parenchymal hemorrhage is again noted with intraventricular extension. T1 hyperintensity associated with the hematoma and in the dependent right cerebral hemisphere. No definite underlying parenchymal enhancement. Consider follow-up imaging in 8-12 weeks to better assess for underlying lesion. Scattered susceptibility artifact in multiple sulci and cerebellar folia, bilateral scattered subarachnoid hemorrhage. While this may all represent acute subarachnoid hemorrhage, cannot exclude a degree of underlying chronic hemosiderin staining. Small foci of mild diffusion restriction in the right frontal and parietal lobes, and most prominently in the left temporal lobe. These may be artifactual due to adjacent subarachnoid hemorrhage, although could represent small subacute infarcts. Prominent area of encephalomalacia in the left frontal lobe with apparent chronic hemosiderin staining. Small amount of enhancement centrally, likely representing an area of scarring. 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 OLOGY EXAM: MRI BRAIN WITH AND WITHOUT CONTRAST, 11/20/2022 14:47 PM COMPARISON: CT head on November 20, 2022 at 1134 hours. CLINICAL INDICATIONS: 77 years Male eval for brain lesions; TECHNIQUE: A series of multisequence, multiplanar images of the brain are obtained both before and after intravenous administration of gadolinium-based contrast using standard protocol. Study was performed at [address] [facility]. CONTRAST: gadoterate Meglumine (DOTAREM) 5 MMOL/10ML injection 3-60 mL; Route of Administration: Intravenous; Dose: 12 mL. FINDINGS: Again noted is the right cerebellar parenchymal hematoma with intraventricular extension. Hemorrhage is seen layering in the bilateral occipital horns, more so on the right and extending into the temporal horns. Scattered subarachnoid hemorrhage is again noted, as better demonstrated on recent CT of the head. At the primary hemorrhage, there is mild T1-weighted hyperintense hemorrhage within the hematoma itself and in the dependent right occipital horn. This is compatible with acute hemorrhage. There is no definite underlying enhancement. Prominent area of encephalomalacia in the left frontal lobe with associated gliosis and susceptibility artifact suggestive of chronic hemosiderin staining. There is mild ill-defined enhancement within the area of encephalomalacia, likely representing a degree of scarring. No abnormal parenchymal enhancement is noted elsewhere. There is focal increased signal on diffusion-weighted imaging in the right frontal and parietal lobes and in the left temporal lobe. There is mild signal dropout on ADC. These are predominantly juxtacortical and may be artifactual due to associated subarachnoid hemorrhage, although small subacute infarcts would be a consideration. Of note, there is no significant stenosis on the concurrent MRA. Small cystic lesion in the anterior right temporal lobe, unchanged from the previous CTs. This does not demonstrate enhancement and follows CSF on all sequences, may represent a focal prominent perivascular space or other benign process. Patchy and confluent white matter FLAIR hyperintensity, nonspecific although commonly associated with chronic small vessel ischemic change. Filling defect in the left transverse sinus extending into the sigmoid sinus with peripheral enhancement suggestive of chronic sinusitis as previously described. Ventricles are stable in size and configuration, with asymmetrically ex vacuo dilatation of the left frontal horn. No midline shift. Findings again suggestive of adhesions in the posterior fossa, most evident adjacent to the left cerebellar hemisphere with fluid hemosiderin levels. Subtle hemosiderin staining versus acute subarachnoid hemorrhage is noted at the superior cerebellar folia. Mild mucosal thickening of several paranasal sinuses. There is complete opacification of the right sphenoid sinus with T1-weighted hyperintense secretions. This is likely related to inspissated secretions. The orbits are unremarkable. The calvarium is intact. RADIOLOGY Reza Taylor MD - 11/20/2022 EXAM: MRI BRAIN WITH AND WITHOUT CONTRAST, 11/20/2022 14:47 PM COMPARISON: CT head on November 20, 2022 at 1134 hours. CLINICAL INDICATIONS: 77 years Male eval for brain lesions; TECHNIQUE: A series of multisequence, multiplanar images of the brain are obtained both before and after intravenous administration of gadolinium-based contrast using standard protocol. Study was performed at [address] [facility] CONTRAST: gadoterate Meglumine (DOTAREM) 5 MMOL/10ML injection 3-60 mL; Route of Administration: Intravenous; Dose: 12 mL. FINDINGS: Again noted is the right cerebellar parenchymal hematoma with intraventricular extension. Hemorrhage is seen layering in the bilateral occipital horns, more so on the right and extending into the temporal horns. Scattered subarachnoid hemorrhage is again noted, as better demonstrated on recent CT of the head. At the primary hemorrhage, there is mild T1-weighted hyperintense hemorrhage within the hematoma itself and in the dependent right occipital horn. This is compatible with acute hemorrhage. There is no definite underlying enhancement. Prominent area of encephalomalacia in the left frontal lobe with associated gliosis and susceptibility artifact suggestive of chronic hemosiderin staining. There is mild ill-defined enhancement within the area of encephalomalacia, likely representing a degree of scarring. No abnormal parenchymal enhancement is noted elsewhere. There is focal increased signal on diffusion-weighted imaging in the right frontal and parietal lobes and in the left temporal lobe. There is mild signal dropout on ADC. These are predominantly juxtacortical and may be artifactual due to associated subarachnoid hemorrhage, although small subacute infarcts would be a consideration. Of note, there is no significant stenosis on the concurrent MRA. Small cystic lesion in the anterior right temporal lobe, unchanged from the previous CTs. This does not demonstrate enhancement and follows CSF on all sequences, may represent a focal prominent perivascular space or other benign process. Patchy and confluent white matter FLAIR hyperintensity, nonspecific although commonly associated with chronic small vessel ischemic change. Filling defect in the left transverse sinus extending into the sigmoid sinus with peripheral enhancement suggestive of chronic sinusitis as previously described. Ventricles are stable in size and configuration, with asymmetrically ex vacuo dilatation of the left frontal horn. No midline shift. Findings again suggestive of adhesions in the posterior fossa, most evident adjacent to the left cerebellar hemisphere with fluid hemosiderin levels. Subtle hemosiderin staining versus acute subarachnoid hemorrhage is noted at the superior cerebellar folia. Mild mucosal thickening of several paranasal sinuses. There is complete opacification of the right sphenoid sinus with T1-weighted hyperintense secretions. This is likely related to inspissated secretions. The orbits are unremarkable. The calvarium is intact. IMPRESSION IMPRESSION: Right occipital parenchymal hemorrhage is again noted with intraventricular extension. T1 hyperintensity associated with the hematoma and in the dependent right cerebral hemisphere. No definite underlying parenchymal enhancement. Consider follow-up imaging in 8-12 weeks to better assess for underlying lesion. Scattered susceptibility artifact in multiple sulci and cerebellar folia, bilateral scattered subarachnoid hemorrhage. While this may all represent acute subarachnoid hemorrhage, cannot exclude a degree of underlying chronic hemosiderin staining. Small foci of mild diffusion restriction in the right frontal and parietal lobes, and most prominently in the left temporal lobe. These may be artifactual due to adjacent subarachnoid hemorrhage, although could represent small subacute infarcts. Prominent area of encephalomalacia in the left frontal lobe with apparent chronic hemosiderin staining. Small amount of enhancement centrally, likely representing an area of scarring. 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 [facility] Radiology Study observation (narrative) [facility] MR Brain WO and W contrast I VOrdered By: Reza Taylor on 11-20-2022 [facility] Work Phone: MRA Head vessels WO contrast on 11-20-2022 IMPRESSION: No evidence of AVM or dural aVF. No significant intracranial arterial stenosis or occlusion. OLOGY EXAM: MRI ARTERIOGRA M BRAIN WITHOUT CONTRAST, 11/20/2022 14:50 PM COMPARISON: No previous study is available for comparison. CLINICAL INDICATIONS: 77 years Male eval for dAVF; TECHNIQUE: MR Angiography of the brain is performed using 3D [id number]-ib-jfwsaz technique without intravenous contrast. Source images, as well as MIP images with region of interest cut-outs, are provided. Study was performed at [address] [facility]. FINDINGS: The right occipital parenchymal hematoma is noted. Visualized cervical, petrous, cavernous, and supraclinoid internal carotid arteries are within normal limits. Visualized anterior cerebral arteries are within normal limits. Visualized middle cerebral arteries are within normal limits. Visualized posterior cerebral arteries appear unremarkable. Basilar artery and visualized vertebral arteries are within normal limits. A tiny fenestration of the inferior basilar artery is incidentally noted. No evidence of aneurysm or AVM. There is no early arterialization of the dural venous sinuses to suggest dural AV fistula. RADIOLOGY Reza Taylor MD - 11/20/2022 EXAM: MRI ARTERIOGRAM BRAIN WITHOUT CONTRAST, 11/20/2022 14:50 PM COMPARISON: No previous study is available for comparison. CLINICAL INDICATIONS: 77 years Male eval for dAVF; TECHNIQUE: MR Angiography of the brain is performed using 3D ylrz-aj-pudevz technique without intravenous contrast. Source images, as well as MIP images with region of interest cut-outs, are provided. Study was performed at [address] [place]. FINDINGS: The right occipital parenchymal hematoma is noted. Visualized cervical, petrous, cavernous, and supraclinoid internal carotid arteries are within normal limits. Visualized anterior cerebral arteries are within normal limits. Visualized middle cerebral arteries are within normal limits. Visualized posterior cerebral arteries appear unremarkable. Basilar artery and visualized vertebral arteries are within normal limits. A tiny fenestration of the inferior basilar artery is incidentally noted. No evidence of aneurysm or AVM. There is no early arterialization of the dural venous sinuses to suggest dural AV fistula. IMPRESSION IMPRESSION: No evidence of AVM or dural aVF. No significant intracranial arterial stenosis or occlusion. [facility] Radiology Study observation (narrative) [facility] MRI ARTERIOGRAM BRAIN WITHOU T CONTRASTon 11-20-2022 MRI ARTERIOGRAM BRAIN WITHOUT CONTRAST EXAM: MRI ARTERIOGRAM BRAIN WITHOUT CONTRAST, 11/20/2022 14:50 PM COMPARISON: No previous study is available for comparison. CLINICAL INDICATIONS: 77 years Male eval for dAVF; TECHNIQUE: MR Angiography of the brain is performed using 3D wwgq-jw-vzjbmf technique without intravenous contrast. Source images, as well as MIP images with region of interest cut-outs, are provided. Study was performed at [address] [place]. FINDINGS: The right occipital parenchymal hematoma is noted. Visualized cervical, petrous, cavernous, and supraclinoid internal carotid arteries are within normal limits. Visualized anterior cerebral arteries are within normal limits. Visualized middle cerebral arteries are within normal limits. Visualized posterior cerebral arteries appear unremarkable. Basilar artery and visualized vertebral arteries are within normal limits. A tiny fenestration of the inferior basilar artery is incidentally noted. No evidence of aneurysm or AVM. There is no early arterialization of the dural venous sinuses to suggest dural AV fistula. IMPRESSION: No evidence of AVM or dural aVF. No significant intracranial arterial stenosis or occlusion. Normal [facility] BRAIN WITH AND WITHOUT CONTRAST EXAM: MRI BRAIN WITH AND WITHOUT CONTRAST, 11/20/2022 14:47 PM COMPARISON: CT head on November 20, 2022 at 1134 hours. CLINICAL INDICATIONS: 77 years Male eval for brain lesions; TECHNIQUE: A series of multisequence, multiplanar images of the brain are obtained both before and after intravenous administration of gadolinium-based contrast using standard protocol. Study was performed at [address] [place] CONTRAST: gadoterate Meglumine (DOTAREM) 5 MMOL/10ML injection 3-60 mL; Route of Administration: Intravenous; Dose: 12 mL. FINDINGS: Again noted is the right cerebellar parenchymal hematoma with intraventricular extension. Hemorrhage is seen layering in the bilateral occipital horns, more so on the right and extending into the temporal horns. Scattered subarachnoid hemorrhage is again noted, as better demonstrated on recent CT of the head. At the primary hemorrhage, there is mild T1-weighted hyperintense hemorrhage within the hematoma itself and in the dependent right occipital horn. This is compatible with acute hemorrhage. There is no definite underlying enhancement. Prominent area of encephalomalacia in the left frontal lobe with associated gliosis and susceptibility artifact suggestive of chronic hemosiderin staining. There is mild ill-defined enhancement within the area of encephalomalacia, likely representing a degree of scarring. No abnormal parenchymal enhancement is noted elsewhere. There is focal increased signal on diffusion-weighted imaging in the right frontal and parietal lobes and in the left temporal lobe. There is mild signal dropout on ADC. These are predominantly juxtacortical and may be artifactual due to associated subarachnoid hemorrhage, although small subacute infarcts would be a consideration. Of note, there is no significant stenosis on the concurrent MRA. Small cystic lesion in the anterior right temporal lobe, unchanged from the previous CTs. This does not demonstrate enhancement and follows CSF on all sequences, may represent a focal prominent perivascular space or other benign process. Patchy and confluent white matter FLAIR hyperintensity, nonspecific although commonly associated with chronic small vessel ischemic change. Filling defect in the left transverse sinus extending into the sigmoid sinus with peripheral enhancement suggestive of chronic sinusitis as previously described. Ventricles are stable in size and configuration, with asymmetrically ex vacuo dilatation of the left frontal horn. No midline shift. Findings again suggestive of adhesions in the posterior fossa, most evident adjacent to the left cerebellar hemisphere with fluid hemosiderin levels. Subtle hemosiderin staining versus acute subarachnoid hemorrhage is noted at the superior cerebellar folia. Mild mucosal thickening of several paranasal sinuses. There is complete opacification of the right sphenoid sinus with T1-weighted hyperintense secretions. This is likely related to inspissated secretions. The orbits are unremarkable. The calvarium is intact. IMPRESSION: Right occipital parenchymal hemorrhage is again noted with intraventricular extension. T1 hyperintensity associated with the hematoma and in the dependent right cerebral hemisphere. No definite underlying parenchymal enhancement. Consider follow-up imaging in 8-12 weeks to better assess for underlying lesion. Scattered susceptibility artifact in multiple sulci and cerebellar folia, bilateral scattered subarachnoid hemorrhage. While this may all represent acute subarachnoid hemorrhage, cannot exclude a degree of underlying chronic hemosiderin staining. Small foci of mild diffusion restriction in the right frontal and parietal lobes, and most prominently in the left temporal lobe. These may be artifactual due to adjacent subarachnoid hemorrhage, although could represent small subacute infarcts. Prominent area of encephalomalacia in the left frontal lobe with apparent chronic hemosiderin staining. Small amount of enhancement centrally, likely representing an area of scarring. 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 Normal [facility] No Panel Informationon 11-20 [facility] Interpretation and review of laboratory results Abnormal [facility] PROTIME-INRon 11-20-2022 INR Coag (PPP) [Relative time] 1.4 {INR} High 0.9-1.1 [facility] Comment on above: Performed By: #### Snehal [id number], [id number] #### [facility] (DEFAULT) [address] [address] PT Coag (PPP) [Time] 17.5 s High 11.9-14.2 [facility] Comment on above: Performed By: #### L [id number], [id number] #### [facility] (DEFAULT) [address] [address] INR Coag (Bld) [Relative time] 1.4 {INR} High 0.9 - 1.1 [facility] Interpretation and review of laboratory results Abnormal [facility] PT Coag (PPP) [Time] 17.5 s High [facility] INR Coag (PPP) [Relative time] 1.5 {INR} High 0.9-1.1 [facility] Comment on above: Order Comment: Draw STAT INR at 30 minutes post KCENTRA administration. Performed By: #### P TI #### [facility] (DEFAULT) [address] [id number] PT Coag (PPP) [Time] 17.6 s High 11.9-14.2 [facility] Comment on above: Order Comment: Draw STAT INR at 30 minutes post KCENTRA administration. Performed By: #### P TI #### [facility] (DEFAULT) [address] [address] INR Coag (Bld) [Relative time] 1.5 {INR} High 0.9 - 1.1 [facility] Interpretation and review of laboratory results Abnormal [facility] PT Coag (PPP) [Time] 17.6 s High [facility] PTINR-STROKEon 11-20-2022 INR Coag (PPP) [Relative time] 1.8 {INR} High 0.9-1.1 [facility] Comment on above: Performed By: #### C HM7 #### [facility] (DEFAULT) [address] [place] [id number] PT Coag (PPP) [Time] 21.1 s High 11.9-14.2 [facility] Comment on above: Performed By: #### C HM7 #### [facility] (DEFAULT) [address] [place] [id number] INR Coag (Bld) [Relative time] 1.8 {INR} High 0.9 - 1.1 [facility] Interpretation and review of laboratory results Abnormal [facility] PT Coag (PPP) [Time] 21.1 s High [facility] PTTon 11-20-2022 aPTT Coag (Bld) [Time] 30.8 s Normal 24.0-34.3 [facility] Comment on above: Performed By: #### C HM7 #### [facility] (DEFAULT) [address] [place] [address] aPTT Coag (PPP) [Time] 30.8 s [facility] Interpretation and review of laboratory results Normal [facility] Portable XR Chest Viewson IMPRESSION: No acute cardiopulmonary disease OLOGY EXAM: XR CHEST PORTABLE, 11/20/2022 12:04 PM COMPARISON: No prior studies available for comparison. CLINICAL INDICATIONS: hypoxia RELEVANT CLINICAL HISTORY: FINDINGS: (Adequate technique) Implanted Devices: None Thorax: No acute findings in the chest. The lungs are grossly clear with no focal airspace disease or overt pulmonary edema. No definite pleural effusion or pneumothorax. Heart size is within normal limits. Chest wall structures are unremarkable. RADIOLOGY Ender Bonilla MD - 11/20/2022 EXAM: XR CHEST PORTABLE, 11/20/2022 12:04 PM COMPARISON: No prior studies available for comparison. CLINICAL INDICATIONS: hypoxia RELEVANT CLINICAL HISTORY: FINDINGS: (Adequate technique) Implanted Devices: None Thorax: No acute findings in the chest. The lungs are grossly clear with no focal airspace disease or overt pulmonary edema. No definite pleural effusion or pneumothorax. Heart size is within normal limits. Chest wall structures are unremarkable. IMPRESSION IMPRESSION: No acute cardiopulmonary disease [facility] Radiology Study observation (narrative) [facility] Portable XR Chest ViewsOrder ed By: Ender Bonilla on 11-20-2022 [facility] Work Phone: TOXICOLOGY SCREEN URINE - UD RGon 11-20-2022 Barbiturates Negative Normal Cutoff: 200 ng/mL [facility] Comment on above: Order Comment: For M edical Purposes Only. Nonforensic screen results are considered presumptive and no confirmatory testing will follow. Drugs are detected by immunoassay or Liquid Chromatography Mass Spectrometry (LC-MS/MS). The LC-MS/MS test was developed and its performance characteristics determined by the Toxicology Laboratory at [facility]. It has not been cleared or approved by the FDA. The laboratory is regulated under CLIA as qualified to perform high-complexity testing. This test is used for clinical purposes and should not be regarded as investigational or for research.The following drugs with their lowest level of detection in ng/ml(LOD) are included in this screen:6 Monoacetylmorphine(300), 7 Aminoflunitrazepam(25), 7 Aminoclonazepam(50),7 hydroxymitragynine (100),Alphahydroxymidazolam (200), Alphahydrozyalprazolam(200), Alprazolam(50), Amitriptyline(50), Amphetamine(250), Atenolol(500),Benzoylecgonine(50), Buprenorphine(100), Bupropion(25),Caffeine(63[address]),Chlordiazepoxide(50), Chlorpheniramine(100), Chlorpromazine(50), Citalopram(100), Clonazepam(200), Cocaine(25),Codeine(200), Cotinine(500),Desipramine(50), Desmethyldoxepin(100), Dextromethorphan(100), Diazepam(100), Dihydrocodeine(100), Diltazem(50), Diphenhydramine(100),Doxepin(100),EDDP/methadone(100), Ephedrine/Pseudoephedrine(100),Fentanyl(25),Flunitrazepam(100),Fl uoxetine(200), Flurazepam(50),Gabapentin(1500), Haloperidol(25), Hydrocodone(100), Hydromorphone(200), Imipramine(50), Ketamine(25), Lidocaine(25),Lorazepam(100), Lysergide(LSD)(25),Maprotiline(200), MDA(250), MDMA(250), Meperidine(50),Midazolam (200),Methadone(50), Methamphetamine(500), Methylphenidate(50), Metoprolol(50), Morphine(200),Nalbuphine(50), Naloxone(200), Norbuprenorphine(300), Nordiazepam(100), Norfentanyl(50),Noroxycodone (100), Norpropoxyphene(50), Nortriptyline(50), Olanzapine(200),Oxazepam(200),Oxycodone(100),Oxymorphone(200), Phencyclidine(PCP)(25), Pheniramine(25), Pregabalin(1500), Promethazine(50), Propoxyphene(100), Propanolol(50), Quetiapine(25), Quinidine(500), Ranitidine(500), Risperidone(100), Sertraline(50),Temazepam(100), Thioridazine(100), Tramadol(50), Trazodone(25), Triazolam(100), Trifluoperazine (100),Venlafaxine(50), Verapamil(100), Zolpidem(200) Performed By: #### G ASVL #### [facility] (DEFAULT) [address] [place] [address] Cannabinoids Screen Ql (U) Negative Normal Cutoff: 50 ng/mL [facility] Comment on above: Order Comment: For M edical Purposes Only. Nonforensic screen results are considered presumptive and no confirmatory testing will follow. Drugs are detected by immunoassay or Liquid Chromatography Mass Spectrometry (LC-MS/MS). The LC-MS/MS test was developed and its performance characteristics determined by the Toxicology Laboratory at [facility]. It has not been cleared or approved by the FDA. The laboratory is regulated under CLIA as qualified to perform high-complexity testing. This test is used for clinical purposes and should not be regarded as investigational or for research.The following drugs with their lowest level of detection in ng/ml(LOD) are included in this screen:6 Monoacetylmorphine(300), 7 Aminoflunitrazepam(25), 7 Aminoclonazepam(50),7 hydroxymitragynine (100),Alphahydroxymidazolam (200), Alphahydrozyalprazolam(200), Alprazolam(50), Amitriptyline(50), Amphetamine(250), Atenolol(500),Benzoylecgonine(50), Buprenorphine(100), Bupropion(25),Caffeine([address]),Chlordiazepoxide(50), Chlorpheniramine(100), Chlorpromazine(50), Citalopram(100), Clonazepam(200), Cocaine(25),Codeine(200), Cotinine(500),Desipramine(50), Desmethyldoxepin(100), Dextromethorphan(100), Diazepam(100), Dihydrocodeine(100), Diltazem(50), Diphenhydramine(100),Doxepin(100),EDDP/methadone(100), Ephedrine/Pseudoephedrine(100),Fentanyl(25),Flunitrazepam(100),Fl uoxetine(200), Flurazepam(50),Gabapentin(1500), Haloperidol(25), Hydrocodone(100), Hydromorphone(200), Imipramine(50), Ketamine(25), Lidocaine(25),Lorazepam(100), Lysergide(LSD)(25),Maprotiline(200), MDA(250), MDMA(250), Meperidine(50),Midazolam (200),Methadone(50), Methamphetamine(500), Methylphenidate(50), Metoprolol(50), Morphine(200),Nalbuphine(50), Naloxone(200), Norbuprenorphine(300), Nordiazepam(100), Norfentanyl(50),Noroxycodone (100), Norpropoxyphene(50), Nortriptyline(50), Olanzapine(200),Oxazepam(200),Oxycodone(100),Oxymorphone(200), Phencyclidine(PCP)(25), Pheniramine(25), Pregabalin(1500), Promethazine(50), Propoxyphene(100), Propanolol(50), Quetiapine(25), Quinidine(500), Ranitidine(500), Risperidone(100), Sertraline(50),Temazepam(100), Thioridazine(100), Tramadol(50), Trazodone(25), Triazolam(100), Trifluoperazine (100),Venlafaxine(50), Verapamil(100), Zolpidem(200) Performed By: #### G ASVL #### [facility] (DEFAULT) [address] [place] [address] Drugs Detected Urine Tox Negative Normal Negative [facility] Comment on above: Order Comment: For M edical Purposes Only. Nonforensic screen results are considered presumptive and no confirmatory testing will follow. Drugs are detected by immunoassay or Liquid Chromatography Mass Spectrometry (LC-MS/MS). The LC-MS/MS test was developed and its performance characteristics determined by the Toxicology Laboratory at [facility]. It has not been cleared or approved by the FDA. The laboratory is regulated under CLIA as qualified to perform high-complexity testing. This test is used for clinical purposes and should not be regarded as investigational or for research.The following drugs with their lowest level of detection in ng/ml(LOD) are included in this screen:6 Monoacetylmorphine(300), 7 Aminoflunitrazepam(25), 7 Aminoclonazepam(50),7 hydroxymitragynine (100),Alphahydroxymidazolam (200), Alphahydrozyalprazolam(200), Alprazolam(50), Amitriptyline(50), Amphetamine(250), Atenolol(500),Benzoylecgonine(50), Buprenorphine(100), Bupropion(25),Caffeine(41204),Chlordiazepoxide(50), Chlorpheniramine(100), Chlorpromazine(50), Citalopram(100), Clonazepam(200), Cocaine(25),Codeine(200), Cotinine(500),Desipramine(50), Desmethyldoxepin(100), Dextromethorphan(100), Diazepam(100), Dihydrocodeine(100), Diltazem(50), Diphenhydramine(100),Doxepin(100),EDDP/methadone(100), Ephedrine/Pseudoephedrine(100),Fentanyl(25),Flunitrazepam(100),Fl uoxetine(200), Flurazepam(50),Gabapentin(1500), Haloperidol(25), Hydrocodone(100), Hydromorphone(200), Imipramine(50), Ketamine(25), Lidocaine(25),Lorazepam(100), Lysergide(LSD)(25),Maprotiline(200), MDA(250), MDMA(250), Meperidine(50),Midazolam (200),Methadone(50), Methamphetamine(500), Methylphenidate(50), Metoprolol(50), Morphine(200),Nalbuphine(50), Naloxone(200), Norbuprenorphine(300), Nordiazepam(100), Norfentanyl(50),Noroxycodone (100), Norpropoxyphene(50), Nortriptyline(50), Olanzapine(200),Oxazepam(200),Oxycodone(100),Oxymorphone(200), Phencyclidine(PCP)(25), Pheniramine(25), Pregabalin(1500), Promethazine(50), Propoxyphene(100), Propanolol(50), Quetiapine(25), Quinidine(500), Ranitidine(500), Risperidone(100), Sertraline(50),Temazepam(100), Thioridazine(100), Tramadol(50), Trazodone(25), Triazolam(100), Trifluoperazine (100),Venlafaxine(50), Verapamil(100), Zolpidem(200) Performed By: #### G ASVL #### [facility] (DEFAULT) [address] [address] TYPE AND SCREENon 11-20-2022 ABO/RH(D) TYPE Positive Normal [facility] Comment on above: Performed By: #### X M #### [facility] (DEFAULT) [address] [address] ABO/RH(D) TYPE Positive [facility] URINE CULTUREon 11-20-2022 Bacteria identified Cx Nom (U) No Growth Normal [facility] Comment on above: Order Comment: For i ndwelling catheters, specimen collection is acceptable on catheter day 1 and 2 only. Glynn top vacutainer. Urine must be to the fill line to process (4mls). If minimum volume, send urine in a yellow top vacutainer tube. For straight cath urines, a cut off of equal or greater than 10,000 CFU/mL is considered significant. Performed By: #### U R #### [facility] (DEFAULT) [address] [place] [address] URINE DIPSTICK; REFLEX MICRO SCOPY; REFLEX CULTURE PERFORMABLEon 11-20-2022 Appearance (U) Clear Normal Clear [facility] Comment on above: Performed By: #### L [id number], [id number] #### [facility] (DEFAULT) [address] [place] [address] Blood Urine Moderate Abnormal Negative [facility] Comment on above: Performed By: #### L [id number], [id number] #### [facility] (DEFAULT) [address] [place] [address] Color (U) Yellow Normal Yellow [facility] Comment on above: Performed By: #### Snehal ARREDONDO [id number] #### [facility] (DEFAULT) [address] [place] [address] Glucose Ql (U) Negative Normal Negative [facility] Comment on above: Performed By: #### Snehal ARREDONDO [id number] #### [facility] (DEFAULT) [address] [place] [address] Ketones Ql (U) Negative Normal Negative [facility] Comment on above: Performed By: #### Snehal ARREDONDO [id number] #### [facility] (DEFAULT) [address] [place] [address] Leukocyte esterase Test strip Ql (U) Trace Abnormal Negative [facility] Comment on above: Performed By: #### Snehal ARREDONDO [id number] #### [facility] (DEFAULT) [address] [place] [address] Nitrites Urine Negative Normal Negative [facility] Comment on above: Performed By: #### Snehal ARREDONDO [id number] #### [facility] (DEFAULT) [address] [place] [address] pH (U) 7.0 [pH] Normal 5.0-7.0 [facility] Comment on above: Performed By: #### Snehal ARREDONDO [id number] #### [facility] (DEFAULT) [address] [place] [address] Protein Urine 30 mg/dL Abnormal Negative [facility] Comment on above: Performed By: #### Snehal ARREDONDO [id number] #### [facility] (DEFAULT) [address] [place] [address] Specific Fouke Urine 1.015 Normal >1.001-<1.03 5 [facility] Comment on above: Performed By: #### L [id number], [id number] #### [facility] (DEFAULT) [address] [address] Urobilinogen Urine 1.0 E.U./dL Normal 0.2 E.U/d L, 1.0 E.U/dL [facility] Comment on above: Performed By: #### L MARIA ELENA [id number] #### [facility] (DEFAULT) [address] [place] [address] Appearance (U) Clear Clear [facility] Color (U) Yellow Yellow [facility] Glucose Test strip (U) [Mass/Vol] Negative Negative [facility] Interpretation and review of laboratory results Abnormal [facility] Ketones (U) [Mass/Vol] Negative Negative [facility] Leukocyte esterase Test strip Ql (U) Trace Abnormal Negative [facility] Nitrite Ql (U) Negative Negative [facility] pH (U) 7.0 [pH] 5.0 - 7.0 [facility] Protein (U) [Mass/Vol] 30 mg/dL Abnormal Negative [facility] RBC (U) [#/Vol] Moderate Abnormal Negative [facility] Specific gravity (U) [Rel density] 1.015 1.001 - PINF [facility] Urobilinogen (U) [Mass/Vol] 1.0 E.U./dL 0.2 E.U/dL, 1.0 E.U/dL [facility] URINE MICROSCOPIC WITH REFLE X TO CULTUREon 11-20-2022 Bacteria TRACE Abnormal ABSENT [facility] Comment on above: Performed By: #### L [id number], [id number] #### [facility] (DEFAULT) [address] [address] RBC Urine 6-9 Abnormal 0-2 [facility] Comment on above: Performed By: #### L MARIA ELENA [id number] #### [facility] (DEFAULT) [address] [place] [address] Squamous/Epithelial Cells 1/hpf = 1+ Normal 1/hpf = 1+, 2-5/hpf = 2+, 0/hpf = 0+, ABSENT [facility] Comment on above: Performed By: #### L [id number], [id number] #### [facility] (DEFAULT) [address] [place] [address] WBC Urine 0-5 Normal 0-5 [facility] Comment on above: Performed By: #### L [id number], [id number] #### [facility] (DEFAULT) [address] [place] [address] URINE MICROSCOPIC WITH REFLE X TO CULTUREOrdered By: Joann Peralta on 11-20-2022 Bacteria LM Ql (Urine sed) TRACE Abnormal ABSENT [facility] Epithelial cells.squamous LM Ql (Urine sed) 1/hpf = 1+ 1/hpf = 1+, 2-5/hpf = 2+, 0/hpf = 0+, ABSENT [facility] Interpretation and review of laboratory results Abnormal [facility] RBC LM.HPF (Urine sed) [#/Area] 6-9 Abnormal [facility] WBC LM.HPF (Urine sed) [#/Area] 0-5 [facility] XR CHEST PORTABLEon 11-20-19 XR CHEST PORTABLE EXAM: XR CHEST PORTABLE, 11/20/2022 12:04 PM COMPARISON: No prior studies available for comparison. CLINICAL INDICATIONS: hypoxia RELEVANT CLINICAL HISTORY: FINDINGS: (Adequate technique) Implanted Devices: None Thorax: No acute findings in the chest. The lungs are grossly clear with no focal airspace disease or overt pulmonary edema. No definite pleural effusion or pneumothorax. Heart size is within normal limits. Chest wall structures are unremarkable. IMPRESSION: No acute cardiopulmonary disease Normal [facility] Comprehensive metabolic 2000 panelon 10-16-2022 Albumin [Mass/Vol] 4.1 g/dL Normal 3.9-4.9 [facility] Comment on above: Order Comment: Speci men Type: BLOOD SPECIMEN Ordering Facility: [facility] Address: [address] [address] Performed By: #### L IPNF, #### [facility] CLIA [id number] [address] [place], [place] [id number] [place] [address] [place] ALP [Catalytic activity/Vol] 97 U/L Normal 38-113 [facility] Comment on above: Order Comment: Speci men Type: BLOOD SPECIMEN Ordering Facility: [facility] Address: [address] [address] Performed By: #### L IPNF, #### [facility] CLIA [id number] [address] [place] ALT With P-5'-P [Catalytic activity/Vol] 11 U/L Normal 10-54 [facility] Comment on above: Order Comment: Speci men Type: BLOOD SPECIMEN Ordering Facility: [facility] Address: [address] [address] Performed By: #### L IPNF, #### [facility] CLIA [id number] [address] OF [facility] Anion gap [Moles/Vol] 9 mmol/L Normal 9-18 [facility] Comment on above: Order Comment: Speci men Type: BLOOD SPECIMEN Ordering Facility: [facility] Address: [address] [address] Performed By: #### L IPNF, #### [facility] CLIA [id number] [address] [place], [place] [address] [place] [address] [place] AST With P-5'-P [Catalytic activity/Vol] 21 U/L Normal 14-40 [facility] Comment on above: Order Comment: Speci men Type: BLOOD SPECIMEN Ordering Facility: [facility] Address: [address] [address] Performed By: #### L IPNF, 71181-6 #### [facility] CLIA [id number] [address] [place] [address] [place] Bilirubin [Mass/Vol] 0.6 mg/dL Normal 0.2-1.3 [facility] Comment on above: Order Comment: Speci men Type: BLOOD SPECIMEN Ordering Facility: [facility] Address: [address] [place] [address] Performed By: #### L IPNF, #### [facility] CLIA [id number] [address] [place] [address] [place] Calcium [Mass/Vol] 9.1 mg/dL Normal 8.5-10.2 [facility] Comment on above: Order Comment: Speci men Type: BLOOD SPECIMEN Ordering Facility: [facility] Address: [address] [place] [address] Performed By: #### L IPNF, #### [facility] CLIA [id number] [address] [place] [address] [place] Chloride [Moles/Vol] 106 mmol/L High 97-105 [facility] Comment on above: Order Comment: Speci men Type: BLOOD SPECIMEN Ordering Facility: [facility] Address: [address] [place] [address] Performed By: #### L IPNF, #### [facility] CLIA [id number] [address] [place] [address] [place] CO2 [Moles/Vol] 26 mmol/L Normal 22-30 [facility] Comment on above: Order Comment: Speci men Type: BLOOD SPECIMEN Ordering Facility: [facility] Address: [address] [place] [address] Performed By: #### L IPNF, #### [facility] CLIA [id number] [address] [place] [address] [place] Creatinine [Mass/Vol] 1.14 mg/dL Normal 0.73-1.22 [facility] Comment on above: Order Comment: Speci men Type: BLOOD SPECIMEN Ordering Facility: [facility] Address: [address] [place] [address] Performed By: #### L LESTER, 75044-5 #### [facility] CLIA [id number] [address] [place], [place] [id number] [place] ESTIMATED GLOMERULAR FILTRATION RATE 66 mL/min/1.73m??? Normal >=60 [facility] Comment on above: Order Comment: Arnulfo dickens Type: BLOOD SPECIMEN Ordering Facility: [facility] Address: [address] [place] [address] Result Comment: [place] mated Glomerular Filtration Rate (eGFR) is calculated using the 2020 CKD-EPI creatinine equation. This equation utilizes serum creatinine, sex, and age as parameters. The creatinine assay has traceable calibration to isotope dilution-mass spectrometry. Refer to KDIGO guidelines for clinical interpretation. In patients with unstable renal function, e.g. those with acute kidney injury, the eGFR may not accurately reflect actual GFR. Performed By: #### L LESTER, 36181-2 #### [facility] CLIA [id number] [address] [place] [address] [place] Glucose [Mass/Vol] 124 mg/dL High 74-99 [facility] Comment on above: Order Comment: Arnulfo maninder Type: BLOOD SPECIMEN Ordering Facility: [facility] Address: [address] [place] [address] Result Comment: The [place] Diabetes Association (ADA) provides guidance for cutoff values for fasting glucose and random glucose. The ADA defines fasting as no caloric intake for at least 8 hours. Fasting plasma glucose results between 100 to 125 mg/dL indicate increased risk for diabetes (prediabetes). Fasting plasma glucose results greater than or equal to 126 mg/dL meet the criteria for diagnosis of diabetes. In the absence of unequivocal hyperglycemia, results should be confirmed by repeat testing. In a patient with classic symptoms of hyperglycemia or hyperglycemic crisis, random plasma glucose results greater than or equal to 200 mg/dL meet the criteria for diagnosis of diabetes. Reference: Standards of Medical Care in Diabetes 2016, [place] Diabetes Association. Diabetes Care. 2016.39(Suppl 1). Performed By: #### L LESTER, #### [facility] CLIA [id number] [address] [place] [address] [place] Potassium [Moles/Vol] 4.1 mmol/L Normal 3.7-5.1 [facility] Comment on above: Order Comment: Speci men Type: BLOOD SPECIMEN Ordering Facility: [facility] Address: [address] [place] [address] Performed By: #### L IPNF, #### [facility] CLIA [id number] [address] [place] [address] [place] Protein [Mass/Vol] 6.7 g/dL Normal 6.3-8.0 [facility] Comment on above: Order Comment: Speci men Type: BLOOD SPECIMEN Ordering Facility: [facility] Address: [address] [place] [address] Performed By: #### L IPNF, #### [facility] CLIA [id number] [address] [place] [address] [place] Sodium [Moles/Vol] 141 mmol/L Normal 136-144 [facility] Comment on above: Order Comment: Speci men Type: BLOOD SPECIMEN Ordering Facility: [facility] Address: [address] [place] [address] Performed By: #### L IPNF, #### [facility] CLIA [id number] [address] [place] [address] [place] Urea nitrogen [Mass/Vol] 21 mg/dL Normal 9-24 [facility] Comment on above: Order Comment: Speci men Type: BLOOD SPECIMEN Ordering Facility: [facility] Address: [address] [place] [address] Performed By: #### L IPNF, #### [facility] CLIA [id number] [address] [place] [address] [place] LIPID PANEL, NONFASTINGon Cholesterol [Mass/Vol] 190 mg/dL Normal <200 [facility] Comment on above: Order Comment: Arnulfo dickens Type: BLOOD SPECIMEN Ordering Facility: [facility] Address: [address] [place] [address] Result Comment: <200 mg/dL, Desirable 200-239 mg/dL, Borderline high >239 mg/dL, High Performed By: #### L IPNF, 01006-8 #### [facility] CLIA [id number] [address] [place] [address] [facility] HDL CHOLESTEROL, NF 67 mg/dL Normal >39 [facility] Comment on above: Order Comment: Arnulfo dickens Type: BLOOD SPECIMEN Ordering Facility: [facility] Address: [address] [place] [address] Result Comment: 40-5 9 mg/dL, Acceptable >59 mg/dL, High: Negative risk factor for coronary heart disease <40 mg/dL, Low: Positive risk factor for coronary heart disease Performed By: #### L IPNF, 22316-9 #### [facility] CLIA [id number] [address] LDL CHOLESTEROL, NF 105 mg/dL High <100 [facility] Comment on above: Order Comment: Arnulfo dickens Type: BLOOD SPECIMEN Ordering Facility: [facility] Address: [address] [place] [address] Result Comment: <100 mg/dL, Optimal 100-129 mg/dL, Near optimal/above optimal 130-159 mg/dL, Borderline high 160-189 mg/dL, High >189 mg/dL, Very high Secondary prevention optimal LDL Cholesterol levels are recommended to be < 70 mg/dL Performed By: #### L IPNF, 61833-8 #### [facility] CLIA [id number] [address] LDL/HDL RATIO, NF 1.57 mg/dL Normal <2.54 [facility] Comment on above: Order Comment: Arnulfo maninder Type: BLOOD SPECIMEN Ordering Facility: [facility] Address: [address] [place] [address] Result Comment: Refe rence: 1. National Cholesterol Education Program ATP III Guideline At-A-Glance Quick Desk Reference: National Heart, Lung, and Blood Eagle. National Institutes of Health. 2001: NIH Publication No. 01-3305. 2. An International Atherosclerosis Society position paper: global recommendations for the management of dyslipidemia: executive summary, Atherosclerosis. 2014: 232(2):410-413. Performed By: #### L IPNF, 47819-0 #### [facility] CLIA [id number] [address] OF [facility] NON HDL CHOL, NF 123 mg/dL Normal <130 [facility] Comment on above: Order Comment: Arnulfo dickens Type: BLOOD SPECIMEN Ordering Facility: [facility] Address: [address] [place] [address] Result Comment: <130 mg/dL, Optimal 130-159 mg/dL, Near optimal/above optimal 160-189 mg/dL, Borderline high 190-219 mg/dL, High >219 mg/dL, Very high Secondary prevention optimal non HDL Cholesterol levels are recommended to be <100 mg/dL Performed By: #### L IPNF, #### [facility] CLIA [id number] [address] T CHOL/HDL RATIO NF 2.84 mg/dL Normal <5.10 [facility] Comment on above: Order Comment: Arnulfo dickens Type: BLOOD SPECIMEN Ordering Facility: [facility] Address: [address] [place] [address] Performed By: #### L IPNF, #### [facility] CLIA [id number] [address] TRIGLYCERIDES, NF 88 mg/dL Normal <150 [facility] Comment on above: Order Comment: Arnulfo dickens Type: BLOOD SPECIMEN Ordering Facility: [facility] Address: [address] [place] [address] Result Comment: <150 mg/dL, Normal 150-199 mg/dL, Borderline high 200-499 mg/dL, High >499 mg/dL, Very high Performed By: #### L IPNF, #### [facility] CLIA [id number] [address] [place] VLDL CHOLESTEROL, NF 18 mg/dL Normal <30 [facility] Comment on above: Order Comment: Arnulfo dickens Type: BLOOD SPECIMEN Ordering Facility: [facility] Address: [address] [place] [address] Performed By: #### L IP, 42787-5 #### [facility] CLIA [id number] [address] PT panel Coag (PPP)on 2021 INR Coag (PPP) [Relative time] 2.5 {INR} High 0.9-1.3 [facility] Comment on above: Order Comment: Arnulfo dickens Type: BLOOD SPECIMEN Ordering Facility: [facility] Address: [address] [place] [address] Result Comment: Regine min K Antagonist (VKA) Therapeutic Range: INR 2 to 3 (Target INR of 2.5) Note: For patients treated with VKA drugs, such as warfarin, the [place] [employer] 2012 Guideline recommends a therapeutic INR range of 2 to 3 (target INR of 2.5). This recommendation includes high-risk patients with antiphospholipid syndrome with previous arterial or venous thromboembolism, current-generation mechanical or bioprosthetic aortic heart valve replacement. Note: Patients with mechanical aortic valve replacement and additional risk factors for thromboembolic events (atrial fibrillation, previous thromboembolism, LV dysfunction, hypercoagulable conditions) or an older generation mechanical AVR (i.e., ball in-Cage) or any mechanical MVR should have a INR therapeutic range of 2.5 to 3.5 (target INR of 3). Sue GH, et al. Chest 2012, 141:7S-47S Sade RA, et al. JAC 2017, 70: 252-289 Performed By: #### 3 4528-0 #### [facility] CLIA [id number] [address] [id number] [place] PT Coag (PPP) [Time] 23.2 s High <13.1 [facility] Comment on above: Order Comment: Arnulfo dickens Type: BLOOD SPECIMEN Ordering Facility: [facility] Address: [address] [address] Performed By: #### 3 4528-0 #### [facility] CLIA [id number] [address] [place] [address] [place] PT panel Coag (PPP)on 2021 INR Coag (PPP) [Relative time] 2.1 {INR} High 0.9-1.3 [facility] Comment on above: Order Comment: Arnulfo dickens Type: BLOOD SPECIMEN Ordering Facility: [facility] Address: [address] [place] [address] Result Comment: Regine min K Antagonist (VKA) Therapeutic Range: INR 2 to 3 (Target INR of 2.5) Note: For patients treated with VKA drugs, such as warfarin, the [place] [employer] 2012 Guideline recommends a therapeutic INR range of 2 to 3 (target INR of 2.5). This recommendation includes high-risk patients with antiphospholipid syndrome with previous arterial or venous thromboembolism, current-generation mechanical or bioprosthetic aortic heart valve replacement. Note: Patients with mechanical aortic valve replacement and additional risk factors for thromboembolic events (atrial fibrillation, previous thromboembolism, LV dysfunction, hypercoagulable conditions) or an older generation mechanical AVR (i.e., ball in-Cage) or any mechanical MVR should have a INR therapeutic range of 2.5 to 3.5 (target INR of 3). Sue GH, et al. Chest 2012, 141:7S-47S Sade RA, et al. [facility] 2017, 70: 252-289 Performed By: #### 3 4528-0 #### [employer] [facility] CLIA [id number] [address] [place] [address] [place] PT Coag (PPP) [Time] 19.9 s High <13.1 [facility] Comment on above: Order Comment: Arnulfo maninder Type: BLOOD SPECIMEN Ordering Facility: [facility] Address: [place] [address] Performed By: #### 3 4528-0 #### [employer] [facility] CLIA [id number] [address] [place] [address] [facility] PT panel Coag (PPP)on 2021 INR Coag (PPP) [Relative time] 2.4 {INR} High 0.9-1.3 [facility] Comment on above: Order Comment: Arnulfo dickens Type: BLOOD SPECIMEN Ordering Facility: [facility] Address: [address] [place], [place] [phone] Result Comment: Regine min K Antagonist (VKA) Therapeutic Range: INR 2 to 3 (Target INR of 2.5) Note: For patients treated with VKA drugs, such as warfarin, the [place] [employer] 2012 Guideline recommends a therapeutic INR range of 2 to 3 (target INR of 2.5). This recommendation includes high-risk patients with antiphospholipid syndrome with previous arterial or venous thromboembolism, current-generation mechanical or bioprosthetic aortic heart valve replacement. Note: Patients with mechanical aortic valve replacement and additional risk factors for thromboembolic events (atrial fibrillation, previous thromboembolism, LV dysfunction, hypercoagulable conditions) or an older generation mechanical AVR (i.e., ball in-Cage) or any mechanical MVR should have a INR therapeutic range of 2.5 to 3.5 (target INR of 3). Sue GH, et al. Chest 2012, 141:7S-47S Sade RA et al. [facility] 2017, 70: 252-289 Performed By: #### 3 4528-0 #### [facility] CLIA [id number] [address] [place] [address] [place] [facility] PT Coag (PPP) [Time] 21.8 s High <13.1 [facility] Comment on above: Order Comment: Arnulfo dickens Type: BLOOD SPECIMEN Ordering Facility: [facility] Address: [address] [place] [id number] Performed By: #### 3 4528-0 #### [facility] CLIA [id number] [address] [place] [address] [facility] PT panel Coag (PPP)on 2021 INR Coag (PPP) [Relative time] 2.3 {INR} High 0.9-1.3 [facility] Comment on above: Order Comment: Arnulfo dickens Type: BLOOD SPECIMEN Ordering Facility: [facility] Address: [address] [place], [place] [phone] Result Comment: Regine min K Antagonist (VKA) Therapeutic Range: INR 2 to 3 (Target INR of 2.5) Note: For patients treated with VKA drugs, such as warfarin, the [place] [employer] 2012 Guideline recommends a therapeutic INR range of 2 to 3 (target INR of 2.5). This recommendation includes high-risk patients with antiphospholipid syndrome with previous arterial or venous thromboembolism, current-generation mechanical or bioprosthetic aortic heart valve replacement. Note: Patients with mechanical aortic valve replacement and additional risk factors for thromboembolic events (atrial fibrillation, previous thromboembolism, LV dysfunction, hypercoagulable conditions) or an older generation mechanical AVR (i.e., ball in-Cage) or any mechanical MVR should have a INR therapeutic range of 2.5 to 3.5 (target INR of 3). Sue GH, et al. Chest 2012, 141:7S-47S Sade RA, et al. [facility] 2017, 70: 252-289 Performed By: #### 3 4528-0 #### [facility] CLIA [id number] [address] [place] [address] [place] PT Coag (PPP) [Time] 21.7 s High <13.1 [facility] Comment on above: Order Comment: Arnulfo dickens Type: BLOOD SPECIMEN Ordering Facility: [facility] Address: [address] [phone] Performed By: #### 3 4528-0 #### [facility] CLIA [id number] [address] [place] [address] [place] PT panel Coag (PPP)on 2021 INR Coag (PPP) [Relative time] 2.5 {INR} High 0.9-1.3 [facility] Comment on above: Order Comment: Arnulfo dickens Type: BLOOD SPECIMEN Ordering Facility: [facility] Address: [address] [place], [place] [phone] Result Comment: Regine min K Antagonist (VKA) Therapeutic Range: INR 2 to 3 (Target INR of 2.5) Note: For patients treated with VKA drugs, such as warfarin, the [place] [employer] 2012 Guideline recommends a therapeutic INR range of 2 to 3 (target INR of 2.5). This recommendation includes high-risk patients with antiphospholipid syndrome with previous arterial or venous thromboembolism, current-generation mechanical or bioprosthetic aortic heart valve replacement. Note: Patients with mechanical aortic valve replacement and additional risk factors for thromboembolic events (atrial fibrillation, previous thromboembolism, LV dysfunction, hypercoagulable conditions) or an older generation mechanical AVR (i.e., ball in-Cage) or any mechanical MVR should have a INR therapeutic range of 2.5 to 3.5 (target INR of 3). Sue GH, et al. Chest 2012, 141:7S-47S Sade RA, et al. [facility] 2017, 70: 252-289 Performed By: #### 3 4528-0 #### [facility] CLIA [id number] [address] [place] [address] [place] PT Coag (PPP) [Time] 24.7 s High 9.7-13.0 [facility] Comment on above: Order Comment: Arnulfo dickens Type: BLOOD SPECIMEN Ordering Facility: [facility] Address: [address] [place], [place] [phone] Performed By: #### 3 4528-0 #### [facility] CLIA [id number] [address] [place] [address] [facility] PT panel Coag (PPP)on 2021 INR Coag (PPP) [Relative time] 2.8 {INR} High 0.9-1.3 [facility] Comment on above: Order Comment: Arnulfo dickens Type: BLOOD SPECIMEN Ordering Facility: [facility] Address: [address] [place], [place] [phone] Result Comment: Regine min K Antagonist (VKA) Therapeutic Range: INR 2 to 3 (Target INR of 2.5) Note: For patients treated with VKA drugs, such as warfarin, the [place] [employer] 2012 Guideline recommends a therapeutic INR range of 2 to 3 (target INR of 2.5). This recommendation includes high-risk patients with antiphospholipid syndrome with previous arterial or venous thromboembolism, current-generation mechanical or bioprosthetic aortic heart valve replacement. Note: Patients with mechanical aortic valve replacement and additional risk factors for thromboembolic events (atrial fibrillation, previous thromboembolism, LV dysfunction, hypercoagulable conditions) or an older generation mechanical AVR (i.e., ball in-Cage) or any mechanical MVR should have a INR therapeutic range of 2.5 to 3.5 (target INR of 3). Sue GH, et al. Chest 2012, 141:7S-47S Sade RA, et al. [facility] 2017, 70: 252-289 Performed By: #### 3 4528-0 #### [facility] CLIA [id number] [address] [place] [address] [place] PT Coag (PPP) [Time] 27.6 s High 9.7-13.0 [facility] Comment on above: Order Comment: Arnulfo dickens Type: BLOOD SPECIMEN Ordering Facility: [facility] Address: [address] [place], [place] [phone] Performed By: #### 3 4528-0 #### [facility] CLIA [id number] [address] [place] [address] [facility] PT panel Coag (PPP)on 2021 INR Coag (PPP) [Relative time] 2.6 {INR} High 0.9-1.3 [facility] Comment on above: Order Comment: Arnulfo dickens Type: BLOOD SPECIMEN Ordering Facility: [facility] Address: [address] [place], [place] [phone] Result Comment: Regine min K Antagonist (VKA) Therapeutic Range: INR 2 to 3 (Target INR of 2.5) Note: For patients treated with VKA drugs, such as warfarin, the [place] [employer] 2012 Guideline recommends a therapeutic INR range of 2 to 3 (target INR of 2.5). This recommendation includes high-risk patients with antiphospholipid syndrome with previous arterial or venous thromboembolism, current-generation mechanical or bioprosthetic aortic heart valve replacement. Note: Patients with mechanical aortic valve replacement and additional risk factors for thromboembolic events (atrial fibrillation, previous thromboembolism, LV dysfunction, hypercoagulable conditions) or an older generation mechanical AVR (i.e., ball in-Cage) or any mechanical MVR should have a INR therapeutic range of 2.5 to 3.5 (target INR of 3). Sue HUTTON, et al. Chest 2012, 141:7S-47S Sade AMANDA et al. [facility] 2017, 70: 252-289 Performed By: #### 3 4528-0 #### [facility] CLIA [id number] [address] [place], [place] [address] [place] [address] PT Coag (PPP) [Time] 26.5 s High 9.7-13.0 [facility] Comment on above: Order Comment: Arnulfo dickens Type: BLOOD SPECIMEN Ordering Facility: [facility] Address: [address] [place] [address] Performed By: #### 3 4528-0 #### [facility] CLIA [id number] [address] PT panel Coag (PPP)on 2021 INR Coag (Bld) [Relative time] 3.4 (EXT) [facility] Comprehensive metabolic 2000 panelon 02-20-2022 Albumin [Mass/Vol] 4.2 g/dL Normal 3.9-4.9 [facility] Comment on above: Order Comment: Arnulfo dickens Type: BLOOD SPECIMEN Ordering Facility: [facility] Address: [address] [place] [address] Performed By: #### 2 4323-8 #### [facility] CLIA [id number] [address] ALP [Catalytic activity/Vol] 104 U/L Normal 38-113 [facility] Comment on above: Order Comment: Arnulfo dickens Type: BLOOD SPECIMEN Ordering Facility: [facility] Address: [address] [place] [address] Performed By: #### 2 4323-8 #### [facility] CLIA [id number] [address] ALT With P-5'-P [Catalytic activity/Vol] 20 U/L Normal 10-54 [facility] Comment on above: Order Comment: Speci men Type: BLOOD SPECIMEN Ordering Facility: [facility] Address: [address] [place] [address] Performed By: #### 2 4323-8 #### [facility] CLIA [id number] [address] [place] [address] [place] Anion gap [Moles/Vol] 9 mmol/L Normal 9-18 [facility] Comment on above: Order Comment: Speci men Type: BLOOD SPECIMEN Ordering Facility: [facility] Address: [address] [place] [address] Performed By: #### 2 4323-8 #### [facility] CLIA [id number] [address] [place] [address] [place] AST With P-5'-P [Catalytic activity/Vol] 35 U/L Normal 14-40 [facility] Comment on above: Order Comment: Speci men Type: BLOOD SPECIMEN Ordering Facility: [facility] Address: [address] [place] [address] Performed By: #### 2 4323-8 #### [facility] CLIA [id number] [address] [place], [place] [address] [place] [address] [place] Bilirubin [Mass/Vol] 0.6 mg/dL Normal 0.2-1.3 [facility] Comment on above: Order Comment: Speci men Type: BLOOD SPECIMEN Ordering Facility: [facility] Address: [address] [place] [address] Performed By: #### 2 4323-8 #### [facility] CLIA [id number] [address] [place] Calcium [Mass/Vol] 9.1 mg/dL Normal 8.5-10.2 [facility] Comment on above: Order Comment: Speci men Type: BLOOD SPECIMEN Ordering Facility: [facility] Address: [address] [place] [address] Performed By: #### 2 4323-8 #### [facility] CLIA [id number] [address] [place] [address] [place] Chloride [Moles/Vol] 103 mmol/L Normal 97-105 [facility] Comment on above: Order Comment: Speci men Type: BLOOD SPECIMEN Ordering Facility: [facility] Address: [address] [place] [address] Performed By: #### 2 4323-8 #### [facility] CLIA [id number] [address] [place] [address] [place] CO2 [Moles/Vol] 28 mmol/L Normal 22-30 [facility] Comment on above: Order Comment: Speci men Type: BLOOD SPECIMEN Ordering Facility: [facility] Address: [address] [place] [address] Performed By: #### 2 4323-8 #### [facility] CLIA [id number] [address] [place] [address] [place] Creatinine [Mass/Vol] 0.93 mg/dL Normal 0.73-1.22 [facility] Comment on above: Order Comment: Speci men Type: BLOOD SPECIMEN Ordering Facility: [facility] Address: [address] [place] [address] Performed By: #### 2 4323-8 #### [facility] CLIA [id number] [address] [place] [address] [facility] OF [place] ESTIMATED GLOMERULAR FILTRATION RATE 84 mL/min/1.73m??? Normal >=60 [facility] Comment on above: Order Comment: Speci men Type: BLOOD SPECIMEN Ordering Facility: [facility] Address: [address] [place] [address] Result Comment: [place] mated Glomerular Filtration Rate (eGFR) is calculated using the 2020 CKD-EPI creatinine equation. This equation utilizes serum creatinine, sex, and age as parameters. The creatinine assay has traceable calibration to isotope dilution-mass spectrometry. Refer to KDIGO guidelines for clinical interpretation. In patients with unstable renal function, e.g. those with acute kidney injury, the eGFR may not accurately reflect actual GFR. Performed By: #### 2 4323-8 #### [facility] CLIA [id number] [address] [place] [address] [place] Glucose [Mass/Vol] 123 mg/dL High 74-99 [facility] Comment on above: Order Comment: Arnulfo dickens Type: BLOOD SPECIMEN Ordering Facility: [facility] Address: [address] [place] [address] Result Comment: The [place] [employer] (ADA) provides guidance for cutoff values for fasting glucose and random glucose. The ADA defines fasting as no caloric intake for at least 8 hours. Fasting plasma glucose results between 100 to 125 mg/dL indicate increased risk for diabetes (prediabetes). Fasting plasma glucose results greater than or equal to 126 mg/dL meet the criteria for diagnosis of diabetes. In the absence of unequivocal hyperglycemia, results should be confirmed by repeat testing. In a patient with classic symptoms of hyperglycemia or hyperglycemic crisis, random plasma glucose results greater than or equal to 200 mg/dL meet the criteria for diagnosis of diabetes. Reference: Standards of Medical Care in Diabetes 2016, [place] [employer]. Diabetes Care. 2016.39(Suppl 1). Performed By: #### 2 4323-8 #### [facility] CLIA [id number] [address] [place] [address] [place] Potassium [Moles/Vol] 4.1 mmol/L Normal 3.7-5.1 [facility] Comment on above: Order Comment: Arnulfo dickens Type: BLOOD SPECIMEN Ordering Facility: [facility] Address: [address] [address] Performed By: #### 2 4323-8 #### [facility] CLIA [id number] [address] [place] [address] [place] Protein [Mass/Vol] 6.7 g/dL Normal 6.3-8.0 [facility] Comment on above: Order Comment: Arnulfo dickens Type: BLOOD SPECIMEN Ordering Facility: [facility] Address: [address] [address] Performed By: #### 2 4323-8 #### [facility] CLIA [id number] [address] [place], [place] [address] [place] [address] STATES [facility] Sodium [Moles/Vol] 140 mmol/L Normal 136-144 [facility] Comment on above: Order Comment: Speci men Type: BLOOD SPECIMEN Ordering Facility: [facility] Address: [address] [place] [address] Performed By: #### 2 4323-8 #### [facility] CLIA [id number] [address] [place], [place] [address] [place] [address] Urea nitrogen [Mass/Vol] 21 mg/dL Normal 9-24 [facility] Comment on above: Order Comment: Speci men Type: BLOOD SPECIMEN Ordering Facility: [facility] Address: [address] [place] [address] Performed By: #### 2 4323-8 #### [facility] CLIA [id number] [address] Comprehensive metabolic 2000 panelon 02-05-2022 Albumin [Mass/Vol] 4.3 g/dL 3.9 - 4.9 g/dL [facility] ALP [Catalytic activity/Vol] 100 U/L 38 - 113 U/L [facility] ALT [Catalytic activity/Vol] 20 U/L 10 - 54 U/L [facility] Anion gap [Moles/Vol] 10 mmol/L 9 - 18 mmol/L [facility] AST [Catalytic activity/Vol] 35 U/L 14 - 40 U/L [facility] Bilirubin [Mass/Vol] 0.7 mg/dL 0.2 - 1 .3 mg/dL [facility] Calcium [Mass/Vol] 9.4 mg/dL 8.5 - 10. 2 mg/dL [facility] Chloride [Moles/Vol] 106 mmol/L High 97 - 10 5 mmol/L [facility] CO2 [Moles/Vol] 23 mmol/L 22 - 30 mmol/L [facility] Creatinine [Mass/Vol] 0.95 mg/dL 0.73 - 1.22 mg/dL [facility] Estimated Glomerular Filtration Rate 82 mL/min/1.73m >=60 mL/min/1.73m [facility] Glucose [Mass/Vol] 91 mg/dL 74 - 99 mg/dL [facility] Potassium [Moles/Vol] 5.5 mmol/L High 3.7 - 5.1 mmol/L [facility] Protein [Mass/Vol] 7.0 g/dL 6.3 - 8.0 g/dL [facility] Sodium [Moles/Vol] 139 mmol/L 136 - 144 mmol/L [facility] Urea nitrogen [Mass/Vol] 16 mg/dL 9 - 24 mg/dL [facility] CBC panel Auto (Bld)on 02-04 Erythrocyte distribution width (RBC) [Ratio] 14.6 % 11.5 - 15.0 % [facility] Hematocrit (Bld) [Volume fraction] 51.5 % High 39.0 - 51.0 % [facility] Hemoglobin (Bld) [Mass/Vol] 16.2 g/dL 13.0 - 17.0 g/dL [facility] MCH (RBC) [Entitic mass] 28.9 pg 26.0 - 34.0 pg [facility] MCHC (RBC) [Mass/Vol] 31.5 g/dL 30.5 - 36.0 g/dL [facility] MCV (RBC) [Entitic vol] 91.8 fL 80.0 - 100.0 fL [facility] Nucleated RBC (Bld) [#/Vol] 10*3/uL <0.01 k/uL [facility] Platelet mean volume (Bld) [Entitic vol] 11.7 fL 9.0 - 12.7 fL [facility] Platelets (Bld) [#/Vol] 267 10*3/uL 150 - 400 k/uL [facility] RBC (Bld) [#/Vol] 5.61 10*6/uL 4.20 - 6.0 0 m/uL [facility] WBC (Bld) [#/Vol] 8.74 10*3/uL 3.70 - 11. 00 k/uL [facility] PT panel Coag (PPP)on 2021 INR Coag (PPP) [Relative time] 1.7 {INR} High 0.9 - 1.3 [facility] PT Coag (PPP) [Time] 17.9 s High 9.7 - 1 3.0 sec [facility] Protimeon 07-19-2020 INR Coag (PPP) [Relative time] 2.93 {INR} High 0.90-1.30 [facility] Comment on above: Result Comment: Regine min K Antagonist (VKA) Therapeutic Range: INR 2 to 3 (Target INR of 2.5) Note: For patients treated with VKA drugs, such as warfarin, the [place] [employer] 2012 Guideline recommends a therapeutic INR range of 2 to 3 (target INR of 2.5). This recommendation includes high-risk patients with antiphospholipid syndrome with previous arterial or venous thromboembolism, current-generation mechanical or bioprosthetic aortic heart valve replacement. Note: Patients with mechanical aortic valve replacement and additional risk factors for thromboembolic events (atrial fibrillation, previous thromboembolism, LV dysfunction, hypercoagulable conditions) or an older generation mechanical AVR (i.e., ball in-Cage) or any mechanical MVR should have a INR therapeutic range of 2.5 to 3.5 target INR of 3). Sue GH, et al. Chest 2012; 141:7S-47S Sade RA et al. [facility] 2017; 70: 252-289 Performed By: #### L PT #### [facility] [address] [place], [place] [address] PT Coag (PPP) [Time] 29.9 s High 9.7-13.0 [facility] Comment on above: Result Comment: . Performed By: #### L PT #### [facility] [address] [place], [place] [address] Protimeon 07-12-2020 INR Coag (PPP) [Relative time] 3.61 {INR} High 0.90-1.30 [facility] Comment on above: Result Comment: Regine min K Antagonist (VKA) Therapeutic Range: INR 2 to 3 (Target INR of 2.5) Note: For patients treated with VKA drugs, such as warfarin, the [place] [employer] 2012 Guideline recommends a therapeutic INR range of 2 to 3 (target INR of 2.5). This recommendation includes high-risk patients with antiphospholipid syndrome with previous arterial or venous thromboembolism, current-generation mechanical or bioprosthetic aortic heart valve replacement. Note: Patients with mechanical aortic valve replacement and additional risk factors for thromboembolic events (atrial fibrillation, previous thromboembolism, LV dysfunction, hypercoagulable conditions) or an older generation mechanical AVR (i.e., ball in-Cage) or any mechanical MVR should have a INR therapeutic range of 2.5 to 3.5 target INR of 3). Sue HUTTON, et al. Chest 2012; 141:7S-47S Sade AMANDA et al. [facility] 2017; 70: 252-289 Performed By: #### L PT #### [address] [address] PT Coag (PPP) [Time] 36.7 s High 9.7-13.0 [facility] Comment on above: Result Comment: . Performed By: #### L PT #### [address] [address] Protimeon 07-05-2020 INR Coag (PPP) [Relative time] 3.90 {INR} High 0.90-1.30 [facility] Comment on above: Result Comment: Regine min K Antagonist (VKA) Therapeutic Range: INR 2 to 3 (Target INR of 2.5) Note: For patients treated with VKA drugs, such as warfarin, the [place] [employer] 2012 Guideline recommends a therapeutic INR range of 2 to 3 (target INR of 2.5). This recommendation includes high-risk patients with antiphospholipid syndrome with previous arterial or venous thromboembolism, current-generation mechanical or bioprosthetic aortic heart valve replacement. Note: Patients with mechanical aortic valve replacement and additional risk factors for thromboembolic events (atrial fibrillation, previous thromboembolism, LV dysfunction, hypercoagulable conditions) or an older generation mechanical AVR (i.e., ball in-Cage) or any mechanical MVR should have a INR therapeutic range of 2.5 to 3.5 target INR of 3). Sue HUTTON, et al. Chest 2012; 141:7S-47S Sade AMANDA et al. [facility] 2017; 70: 252-289 Performed By: #### L PT #### [facility] [address] [place], [place] [address] PT Coag (PPP) [Time] 39.7 s High 9.7-13.0 [facility] Comment on above: Result Comment: . Performed By: #### L PT #### [address] [address] Protimeon 06-28-2020 INR Coag (PPP) [Relative time] 4.85 {INR} Critically high 0.90-1.30 [facility] Comment on above: Result Comment: Regine min K Antagonist (VKA) Therapeutic Range: INR 2 to 3 (Target INR of 2.5) Note: For patients treated with VKA drugs, such as warfarin, the [place] [employer] 2012 Guideline recommends a therapeutic INR range of 2 to 3 (target INR of 2.5). This recommendation includes high-risk patients with antiphospholipid syndrome with previous arterial or venous thromboembolism, current-generation mechanical or bioprosthetic aortic heart valve replacement. Note: Patients with mechanical aortic valve replacement and additional risk factors for thromboembolic events (atrial fibrillation, previous thromboembolism, LV dysfunction, hypercoagulable conditions) or an older generation mechanical AVR (i.e., ball in-Cage) or any mechanical MVR should have a INR therapeutic range of 2.5 to 3.5 target INR of 3). Sue GH, et al. Chest 2012; 141:7S-47S Sade RA et al. [facility] 2017; 70: 252-289 Performed By: #### L PT #### [place] [address] PT Coag (PPP) [Time] 49.1 s High 9.7-13.0 [facility] Comment on above: Result Comment: . Performed By: #### L PT #### [place] [id number] Protimeon 06-21-2020 INR Coag (PPP) [Relative time] 3.82 {INR} High 0.90-1.30 [facility] Comment on above: Result Comment: Regine min K Antagonist (VKA) Therapeutic Range: INR 2 to 3 (Target INR of 2.5) Note: For patients treated with VKA drugs, such as warfarin, the [place] [employer] 2012 Guideline recommends a therapeutic INR range of 2 to 3 (target INR of 2.5). This recommendation includes high-risk patients with antiphospholipid syndrome with previous arterial or venous thromboembolism, current-generation mechanical or bioprosthetic aortic heart valve replacement. Note: Patients with mechanical aortic valve replacement and additional risk factors for thromboembolic events (atrial fibrillation, previous thromboembolism, LV dysfunction, hypercoagulable conditions) or an older generation mechanical AVR (i.e., ball in-Cage) or any mechanical MVR should have a INR therapeutic range of 2.5 to 3.5 target INR of 3). Sue GH, et al. Chest 2012; 141:7S-47S Sade AMANDA et al. [facility] 2017; 70: 252-289 Performed By: #### L PT #### [place] [address] PT Coag (PPP) [Time] 39.1 s High 9.7-13.0 [facility] Comment on above: Result Comment: . Performed By: #### L PT #### [place] [address] Hepatitis C Antibodyon 06-15 Hepatitis C Ab Negative Normal Negative [facility] Comment on above: Performed By: #### L PT #### [place] [address] Comprehensive Panelon 2019 AST-SGOT Blood 27 U/L Normal 14-40 [facility] Comment on above: Result Comment: SPEC IMEN SLIGHTLY HEMOLYZED Performed By: #### L PT #### [place] [address] Albumin [Mass/Vol] 4.1 g/dL Normal 3.9-4.9 [facility] Comment on above: Performed By: #### L PT #### [place] [address] ALP [Catalytic activity/Vol] 86 U/L Normal 38-113 [facility] Comment on above: Performed By: #### L PT #### [place] [address] ALT-SGPT Blood 13 U/L Normal 10-54 [facility] Comment on above: Performed By: #### L PT #### [place] [address] Anion gap [Moles/Vol] 9 mmol/L Normal 9-18 [facility] Comment on above: Performed By: #### L PT #### [facility] [address] [place], [place] [address] Bilirubin Ql (U) 0.7 mg/dL Normal 0.2-1.3 [facility] Comment on above: Performed By: #### L PT #### [facility] [address] [place], [place] [address] Calcium [Mass/Vol] 9.2 mg/dL Normal 8.5-10.2 [facility] Comment on above: Performed By: #### L PT #### [facility] [address] [place], [place] [address] Chloride [Moles/Vol] 107 mmol/L High 97-105 [facility] Comment on above: Performed By: #### L PT #### [facility] [address] [place], [place] [address] CO2 Blood 24 mmol/L Normal 22-30 [facility] Comment on above: Performed By: #### L PT #### [facility] [address] [place], [place] [address] Creatinine [Mass/Vol] 1.18 mg/dL Normal 0.73-1.22 [facility] Comment on above: Performed By: #### L PT #### [facility] [address] [place], [place] [address] Glucose [Mass/Vol] 84 mg/dL Normal 74-99 [facility] Comment on above: Result Comment: The [place] [employer] (ADA) provides guidance for cutoff values for fasting glucose and random glucose. The ADA defines fasting as no caloric intake for at least 8 hours.Fasting plasma glucose results between 100 to 125 mg/dL indicate increased risk for diabetes (prediabetes). Fasting plasma glucose results greater than or equal to 126 mg/dL meet the criteria for diagnosis of diabetes. In the absence of unequivocal hyperglycemia, results should be confirmed by repeat testing. In a patient with classic symptoms of hyperglycemia or hyperglycemic crisis, random plasma glucose results greater than or equal to 200 mg/dL meet the criteria for diagnosis of diabetes. Reference: Standards of Medical Care in Diabetes 2016; [place] [employer]. Diabetes Care. 2016;39(Suppl 1). Performed By: #### L PT #### [facility] [address] [place], [place] [address] Potassium [Moles/Vol] 5.2 mmol/L High 3.7-5.1 [facility] Comment on above: Performed By: #### L PT #### [facility] [address] [place], [place] [address] Protein [Mass/Vol] 6.9 g/dL Normal 6.3-8.0 [facility] Comment on above: Performed By: #### L PT #### [facility] [address] [place], [place] [address] Sodium [Moles/Vol] 140 mmol/L Normal 136-144 [facility] Comment on above: Performed By: #### L PT #### [facility] [address] [place], [place] [address] Urea nitrogen [Mass/Vol] 15 mg/dL Normal 9-24 [facility] Comment on above: Performed By: #### L PT #### [facility] [address] [place], [place] [address] Hemogramon 06-14-2020 Erythrocyte distribution width (RBC) [Ratio] 14.8 % Normal 11.5-15.9 [facility] Comment on above: Performed By: #### L PT #### [facility] [address] [place], [place] [address] Hematocrit (Bld) [Volume fraction] 48.9 % Normal 42.0-52.0 [facility] Comment on above: Performed By: #### L PT #### [facility] [address] [place], [place] [address] Hemoglobin (Bld) [Mass/Vol] 15.7 g/dL Normal 14.0-18.0 [facility] Comment on above: Performed By: #### L PT #### [facility] [address] [place], [place] [address] MCH (RBC) [Entitic mass] 29.5 pg Normal 27.0-31.0 [facility] Comment on above: Performed By: #### L PT #### [address] [address] MCHC (RBC) [Mass/Vol] 32.1 % Normal 32.0-36.0 [facility] Comment on above: Performed By: #### L PT #### [facility] [address] [place] [address] MCV (RBC) [Entitic vol] 91.7 fL Normal 80.0-94.0 [facility] Comment on above: Performed By: #### L PT #### [facility] [address] [place] [address] Platelet mean volume (Bld) [Entitic vol] 11.2 fL High 7.1-10.5 [facility] Comment on above: Performed By: #### L PT #### [place] [address] Platelets (Bld) [#/Vol] 245 thou/cmm Normal 150-400 [facility] Comment on above: Performed By: #### L PT #### [facility] [address] [place] [address] RBC (Bld) [#/Vol] 5.33 mil/cmm Normal 4.60-6.20 [facility] Comment on above: Performed By: #### L PT #### [place] [address] WBC (Bld) [#/Vol] 8.5 thou/cmm Normal 4.8-10.5 [facility] Comment on above: Performed By: #### L PT #### [place] [address] MDRD eGFRon 06-14-2020 GFR/1.73 sq M predicted among non-blacks MDRD (S/P/Bld) [Vol rate/Area] mL/min/{1.73_m2} Normal >60mL/min/1. 73m2 [facility] Comment on above: Result Comment: If t he patient is , multiply the result by 1.210. Performed By: #### L PT #### [facility] [address] [place] [address] Potassium Bloodon 06-14-2020 Potassium [Moles/Vol] 4.1 mmol/L Normal 3.7-5.1 [facility] Comment on above: Performed By: #### L PT #### [facility] [address] [place], [place] [address] Protimeon 06-14-2020 INR Coag (PPP) [Relative time] 1.90 {INR} High 0.90-1.30 [facility] Comment on above: Result Comment: Regine min K Antagonist (VKA) Therapeutic Range: INR 2 to 3 (Target INR of 2.5) Note: For patients treated with VKA drugs, such as warfarin, the [place] [employer] 2012 Guideline recommends a therapeutic INR range of 2 to 3 (target INR of 2.5). This recommendation includes high-risk patients with antiphospholipid syndrome with previous arterial or venous thromboembolism, current-generation mechanical or bioprosthetic aortic heart valve replacement. Note: Patients with mechanical aortic valve replacement and additional risk factors for thromboembolic events (atrial fibrillation, previous thromboembolism, LV dysfunction, hypercoagulable conditions) or an older generation mechanical AVR (i.e., ball in-Cage) or any mechanical MVR should have a INR therapeutic range of 2.5 to 3.5 target INR of 3). Bravott GH, et al. Chest 2012; 141:7S-47S Sade RA et al. [facility] 2017; 70: 252-289 Performed By: #### L PT #### [facility] [address] [place], [place] [address] PT Coag (PPP) [Time] 19.3 s High 9.7-13.0 [facility] Comment on above: Result Comment: . Performed By: #### L PT #### [facility] [address] [place], [place] [address] Protimeon 05-31-2020 INR Coag (PPP) [Relative time] 2.31 {INR} High 0.90-1.30 [facility] Comment on above: Result Comment: Regine min K Antagonist (VKA) Therapeutic Range: INR 2 to 3 (Target INR of 2.5) Note: For patients treated with VKA drugs, such as warfarin, the [place] [employer] 2012 Guideline recommends a therapeutic INR range of 2 to 3 (target INR of 2.5). This recommendation includes high-risk patients with antiphospholipid syndrome with previous arterial or venous thromboembolism, current-generation mechanical or bioprosthetic aortic heart valve replacement. Note: Patients with mechanical aortic valve replacement and additional risk factors for thromboembolic events (atrial fibrillation, previous thromboembolism, LV dysfunction, hypercoagulable conditions) or an older generation mechanical AVR (i.e., ball in-Cage) or any mechanical MVR should have a INR therapeutic range of 2.5 to 3.5 target INR of 3). Sue HUTTON, et al. Chest 2012; 141:7S-47S Sade AMANDA et al. [facility] 2017; 70: 252-289 Performed By: #### L PT #### [facility] [address] [place], [place] [address] PT Coag (PPP) [Time] 23.5 s High 9.7-13.0 [facility] Comment on above: Result Comment: . Performed By: #### L PT #### [address] [address] Protimeon 05-24-2020 INR Coag (PPP) [Relative time] 1.88 {INR} High 0.90-1.30 [facility] Comment on above: Result Comment: Regine min K Antagonist (VKA) Therapeutic Range: INR 2 to 3 (Target INR of 2.5) Note: For patients treated with VKA drugs, such as warfarin, the [place] [employer] 2012 Guideline recommends a therapeutic INR range of 2 to 3 (target INR of 2.5). This recommendation includes high-risk patients with antiphospholipid syndrome with previous arterial or venous thromboembolism, current-generation mechanical or bioprosthetic aortic heart valve replacement. Note: Patients with mechanical aortic valve replacement and additional risk factors for thromboembolic events (atrial fibrillation, previous thromboembolism, LV dysfunction, hypercoagulable conditions) or an older generation mechanical AVR (i.e., ball in-Cage) or any mechanical MVR should have a INR therapeutic range of 2.5 to 3.5 target INR of 3). Sue HUTTON, et al. Chest 2012; 141:7S-47S Sade AMANDA et al. [facility] 2017; 70: 252-289 Performed By: #### L PT #### [facility] [address] [place], [place] [address] PT Coag (PPP) [Time] 19.1 s High 9.7-13.0 [facility] Comment on above: Result Comment: . Performed By: #### L PT #### [facility] [address] [place], [place] [address] Protimeon 05-10-2020 INR Coag (PPP) [Relative time] 2.92 {INR} High 0.90-1.30 [facility] Comment on above: Result Comment: Regine min K Antagonist (VKA) Therapeutic Range: INR 2 to 3 (Target INR of 2.5) Note: For patients treated with VKA drugs, such as warfarin, the [place] [employer] 2012 Guideline recommends a therapeutic INR range of 2 to 3 (target INR of 2.5). This recommendation includes high-risk patients with antiphospholipid syndrome with previous arterial or venous thromboembolism, current-generation mechanical or bioprosthetic aortic heart valve replacement. Note: Patients with mechanical aortic valve replacement and additional risk factors for thromboembolic events (atrial fibrillation, previous thromboembolism, LV dysfunction, hypercoagulable conditions) or an older generation mechanical AVR (i.e., ball in-Cage) or any mechanical MVR should have a INR therapeutic range of 2.5 to 3.5 target INR of 3). Sue GH, et al. Chest 2012; 141:7S-47S Sade AMANDA et al. [facility] 2017; 70: 252-289 Performed By: #### L PT #### [facility] [address] [place], [place] [address] PT Coag (PPP) [Time] 29.8 s High 9.7-13.0 [facility] Comment on above: Result Comment: . Performed By: #### L PT #### [facility] [address] [place], [place] [address] Protimeon 05-03-2020 INR Coag (PPP) [Relative time] 3.51 {INR} High 0.90-1.30 [facility] Comment on above: Result Comment: Regine min K Antagonist (VKA) Therapeutic Range: INR 2 to 3 (Target INR of 2.5) Note: For patients treated with VKA drugs, such as warfarin, the [place] [employer] 2012 Guideline recommends a therapeutic INR range of 2 to 3 (target INR of 2.5). This recommendation includes high-risk patients with antiphospholipid syndrome with previous arterial or venous thromboembolism, current-generation mechanical or bioprosthetic aortic heart valve replacement. Note: Patients with mechanical aortic valve replacement and additional risk factors for thromboembolic events (atrial fibrillation, previous thromboembolism, LV dysfunction, hypercoagulable conditions) or an older generation mechanical AVR (i.e., ball in-Cage) or any mechanical MVR should have a INR therapeutic range of 2.5 to 3.5 target INR of 3). Sue HUTTON, et glenn. Chest 2012; 141:7S-47S Sade AMANDA et al. JAC 2017; 70: 252-289 Performed By: #### L PT #### [facility] [address] [place], [place] [address] PT Coag (PPP) [Time] 35.9 s High 9.7-13.0 [facility] Comment on above: Result Comment: . Performed By: #### L PT #### [facility] [address] [place], [place] [address] Protimeon 04-26-2020 INR Coag (PPP) [Relative time] 1.26 {INR} Normal 0.90-1.30 [facility] Comment on above: Result Comment: Regine min K Antagonist (VKA) Therapeutic Range: INR 2 to 3 (Target INR of 2.5) Note: For patients treated with VKA drugs, such as warfarin, the [place] [employer] 2012 Guideline recommends a therapeutic INR range of 2 to 3 (target INR of 2.5). This recommendation includes high-risk patients with antiphospholipid syndrome with previous arterial or venous thromboembolism, current-generation mechanical or bioprosthetic aortic heart valve replacement. Note: Patients with mechanical aortic valve replacement and additional risk factors for thromboembolic events (atrial fibrillation, previous thromboembolism, LV dysfunction, hypercoagulable conditions) or an older generation mechanical AVR (i.e., ball in-Cage) or any mechanical MVR should have a INR therapeutic range of 2.5 to 3.5 target INR of 3). Sue HUTTON et glenn. Chest 2012; 141:7S-47S Sade AMANDA et al. J[facility] 2017; 70: 252-289 Performed By: #### L PT #### [facility] [address] [place], [place] [address] PT Coag (PPP) [Time] 12.7 s Normal 9.7-13.0 [facility] Comment on above: Result Comment: . Performed By: #### L PT #### [place] [address] Protimeon 04-19-2020 INR Coag (PPP) [Relative time] 1.85 {INR} High 0.90-1.30 [facility] Comment on above: Result Comment: Regine min K Antagonist (VKA) Therapeutic Range: INR 2 to 3 (Target INR of 2.5) Note: For patients treated with VKA drugs, such as warfarin, the [place] [employer] 2012 Guideline recommends a therapeutic INR range of 2 to 3 (target INR of 2.5). This recommendation includes high-risk patients with antiphospholipid syndrome with previous arterial or venous thromboembolism, current-generation mechanical or bioprosthetic aortic heart valve replacement. Note: Patients with mechanical aortic valve replacement and additional risk factors for thromboembolic events (atrial fibrillation, previous thromboembolism, LV dysfunction, hypercoagulable conditions) or an older generation mechanical AVR (i.e., ball in-Cage) or any mechanical MVR should have a INR therapeutic range of 2.5 to 3.5 target INR of 3). Sue GH, et al. Chest 2012; 141:7S-47S Sade AMANDA, et al. [facility] 2017; 70: 252-289 Performed By: #### L PT #### [facility] [address] [place], [place] [address] PT Coag (PPP) [Time] 18.8 s High 9.7-13.0 [facility] Comment on above: Result Comment: . Performed By: #### L PT #### [facility] [address] [place] [address] Protimeon 04-12-2020 INR Coag (PPP) [Relative time] 1.72 {INR} High 0.90-1.30 [facility] Comment on above: Result Comment: Regine min K Antagonist (VKA) Therapeutic Range: INR 2 to 3 (Target INR of 2.5) Note: For patients treated with VKA drugs, such as warfarin, the [place] [employer] 2012 Guideline recommends a therapeutic INR range of 2 to 3 (target INR of 2.5). This recommendation includes high-risk patients with antiphospholipid syndrome with previous arterial or venous thromboembolism, current-generation mechanical or bioprosthetic aortic heart valve replacement. Note: Patients with mechanical aortic valve replacement and additional risk factors for thromboembolic events (atrial fibrillation, previous thromboembolism, LV dysfunction, hypercoagulable conditions) or an older generation mechanical AVR (i.e., ball in-Cage) or any mechanical MVR should have a INR therapeutic range of 2.5 to 3.5 target INR of 3). Sue HUTTON, et al. Chest 2012; 141:7S-47S Sade RA et al. [facility] 2017; 70: 252-289 Performed By: #### L PT #### [facility] [address] [place] [address] PT Coag (PPP) [Time] 17.5 s High 9.7-13.0 [facility] Comment on above: Result Comment: . Performed By: #### L PT #### [address] [address] Protimeon 03-15-2020 INR Coag (PPP) [Relative time] 2.13 {INR} High 0.90-1.30 [facility] Comment on above: Result Comment: Regine min K Antagonist (VKA) Therapeutic Range: INR 2 to 3 (Target INR of 2.5) Note: For patients treated with VKA drugs, such as warfarin, the [place] [employer] 2012 Guideline recommends a therapeutic INR range of 2 to 3 (target INR of 2.5). This recommendation includes high-risk patients with antiphospholipid syndrome with previous arterial or venous thromboembolism, current-generation mechanical or bioprosthetic aortic heart valve replacement. Note: Patients with mechanical aortic valve replacement and additional risk factors for thromboembolic events (atrial fibrillation, previous thromboembolism, LV dysfunction, hypercoagulable conditions) or an older generation mechanical AVR (i.e., ball in-Cage) or any mechanical MVR should have a INR therapeutic range of 2.5 to 3.5 target INR of 3). Sue HUTTON et glenn. Chest 2012; 141:7S-47S Sade AMANDA et al. J[facility] 2017; 70: 252-289 Performed By: #### L PT #### [facility] [address] [place], [place] [address] PT Coag (PPP) [Time] 21.7 s High 9.7-13.0 [facility] Comment on above: Result Comment: . Performed By: #### L PT #### [facility] [address] [place], [place] [address] Protimeon 03-07-2020 INR Coag (PPP) [Relative time] 2.14 {INR} High 0.90-1.30 [facility] Comment on above: Result Comment: Regine min K Antagonist (VKA) Therapeutic Range: INR 2 to 3 (Target INR of 2.5) Note: For patients treated with VKA drugs, such as warfarin, the [place] [employer] 2012 Guideline recommends a therapeutic INR range of 2 to 3 (target INR of 2.5). This recommendation includes high-risk patients with antiphospholipid syndrome with previous arterial or venous thromboembolism, current-generation mechanical or bioprosthetic aortic heart valve replacement. Note: Patients with mechanical aortic valve replacement and additional risk factors for thromboembolic events (atrial fibrillation, previous thromboembolism, LV dysfunction, hypercoagulable conditions) or an older generation mechanical AVR (i.e., ball in-Cage) or any mechanical MVR should have a INR therapeutic range of 2.5 to 3.5 target INR of 3). Sue HUTTON, et al. Chest 2012; 141:7S-47S Sade AMANDA et al. J[facility] 2017; 70: 252-289 Performed By: #### L PT #### [facility] [address] [place], [place] [address] PT Coag (PPP) [Time] 21.8 s High 9.7-13.0 [facility] Comment on above: Result Comment: . Performed By: #### L PT #### [facility] [address] [place], [place] [address] Protimeon 02-28-2020 INR Coag (PPP) [Relative time] 3.71 {INR} High 0.90-1.30 [facility] Comment on above: Result Comment: Regine min K Antagonist (VKA) Therapeutic Range: INR 2 to 3 (Target INR of 2.5) Note: For patients treated with VKA drugs, such as warfarin, the [place] [employer] 2012 Guideline recommends a therapeutic INR range of 2 to 3 (target INR of 2.5). This recommendation includes high-risk patients with antiphospholipid syndrome with previous arterial or venous thromboembolism, current-generation mechanical or bioprosthetic aortic heart valve replacement. Note: Patients with mechanical aortic valve replacement and additional risk factors for thromboembolic events (atrial fibrillation, previous thromboembolism, LV dysfunction, hypercoagulable conditions) or an older generation mechanical AVR (i.e., ball in-Cage) or any mechanical MVR should have a INR therapeutic range of 2.5 to 3.5 target INR of 3). Sue HUTTON, et al. Chest 2012; 141:7S-47S Sade AMANDA et al. [facility] 2017; 70: 252-289 Performed By: #### L PT #### [facility] [address] [place], [place] [address] PT Coag (PPP) [Time] 38.0 s High 9.7-13.0 [facility] Comment on above: Result Comment: . Performed By: #### L PT #### [address] [address] Protimeon 02-14-2020 INR Coag (PPP) [Relative time] 2.68 {INR} High 0.90-1.30 [facility] Comment on above: Result Comment: Regine min K Antagonist (VKA) Therapeutic Range: INR 2 to 3 (Target INR of 2.5) Note: For patients treated with VKA drugs, such as warfarin, the [place] [employer] 2012 Guideline recommends a therapeutic INR range of 2 to 3 (target INR of 2.5). This recommendation includes high-risk patients with antiphospholipid syndrome with previous arterial or venous thromboembolism, current-generation mechanical or bioprosthetic aortic heart valve replacement. Note: Patients with mechanical aortic valve replacement and additional risk factors for thromboembolic events (atrial fibrillation, previous thromboembolism, LV dysfunction, hypercoagulable conditions) or an older generation mechanical AVR (i.e., ball in-Cage) or any mechanical MVR should have a INR therapeutic range of 2.5 to 3.5 target INR of 3). Sue HUTTON, et al. Chest 2012; 141:7S-47S Sade AMANDA et al. [facility] 2017; 70: 252-289 Performed By: #### L PT #### [address] [address] PT Coag (PPP) [Time] 27.4 s High 9.7-13.0 [facility] Comment on above: Result Comment: . Performed By: #### L PT #### [place] [address] Protimeon 02-03-2020 INR Coag (PPP) [Relative time] 1.50 {INR} High 0.90-1.30 [facility] Comment on above: Result Comment: Regine min K Antagonist (VKA) Therapeutic Range: INR 2 to 3 (Target INR of 2.5) Note: For patients treated with VKA drugs, such as warfarin, the [place] [employer] 2012 Guideline recommends a therapeutic INR range of 2 to 3 (target INR of 2.5). This recommendation includes high-risk patients with antiphospholipid syndrome with previous arterial or venous thromboembolism, current-generation mechanical or bioprosthetic aortic heart valve replacement. Note: Patients with mechanical aortic valve replacement and additional risk factors for thromboembolic events (atrial fibrillation, previous thromboembolism, LV dysfunction, hypercoagulable conditions) or an older generation mechanical AVR (i.e., ball in-Cage) or any mechanical MVR should have a INR therapeutic range of 2.5 to 3.5 target INR of 3). Sue HUTTON, et al. Chest 2012; 141:7S-47S Sade MAANDA et al. JAC 2017; 70: 252-289 Performed By: #### L PT #### [address] [address] PT Coag (PPP) [Time] 15.3 s High 9.7-13.0 [facility] Comment on above: Result Comment: . Performed By: #### L PT #### [place] [address] Protimeon 01-27-2020 INR Coag (PPP) [Relative time] 1.52 {INR} High 0.90-1.30 [facility] Comment on above: Result Comment: Regine min K Antagonist (VKA) Therapeutic Range: INR 2 to 3 (Target INR of 2.5) Note: For patients treated with VKA drugs, such as warfarin, the [place] [employer] 2012 Guideline recommends a therapeutic INR range of 2 to 3 (target INR of 2.5). This recommendation includes high-risk patients with antiphospholipid syndrome with previous arterial or venous thromboembolism, current-generation mechanical or bioprosthetic aortic heart valve replacement. Note: Patients with mechanical aortic valve replacement and additional risk factors for thromboembolic events (atrial fibrillation, previous thromboembolism, LV dysfunction, hypercoagulable conditions) or an older generation mechanical AVR (i.e., ball in-Cage) or any mechanical MVR should have a INR therapeutic range of 2.5 to 3.5 target INR of 3). Sue GH, et al. Chest 2012; 141:7S-47S Sade RA et al. [facility] 2017; 70: 252-289 Performed By: #### L PT #### [facility] [address] [place], [place] [address] PT Coag (PPP) [Time] 15.5 s High 9.7-13.0 [facility] Comment on above: Result Comment: . Performed By: #### L PT #### [facility] [address] [place], [place] [address] Protimeon 01-13-2020 INR Coag (PPP) [Relative time] 1.24 {INR} Normal 0.90-1.30 [facility] Comment on above: Result Comment: Regine min K Antagonist (VKA) Therapeutic Range: INR 2 to 3 (Target INR of 2.5) Note: For patients treated with VKA drugs, such as warfarin, the [employer] 2012 Guideline recommends a therapeutic INR range of 2 to 3 (target INR of 2.5). This recommendation includes high-risk patients with antiphospholipid syndrome with previous arterial or venous thromboembolism, current-generation mechanical or bioprosthetic aortic heart valve replacement. Note: Patients with mechanical aortic valve replacement and additional risk factors for thromboembolic events (atrial fibrillation, previous thromboembolism, LV dysfunction, hypercoagulable conditions) or an older generation mechanical AVR (i.e., ball in-Cage) or any mechanical MVR should have a INR therapeutic range of 2.5 to 3.5 target INR of 3). Sue HUTTON, et al. Chest 2012; 141:7S-47S Sade AMANDA et al. [facility] 2017; 70: 252-289 Performed By: #### L PT #### [address] [address] PT Coag (PPP) [Time] 13.1 s High 9.7-13.0 [facility] Comment on above: Result Comment: . Performed By: #### L PT #### [place] [id number] Protimeon 01-06-2020 INR Coag (PPP) [Relative time] 1.05 {INR} Normal 0.90-1.30 [facility] Comment on above: Result Comment: Regine min K Antagonist (VKA) Therapeutic Range: INR 2 to 3 (Target INR of 2.5) Note: For patients treated with VKA drugs, such as warfarin, the [employer] 2012 Guideline recommends a therapeutic INR range of 2 to 3 (target INR of 2.5). This recommendation includes high-risk patients with antiphospholipid syndrome with previous arterial or venous thromboembolism, current-generation mechanical or bioprosthetic aortic heart valve replacement. Note: Patients with mechanical aortic valve replacement and additional risk factors for thromboembolic events (atrial fibrillation, previous thromboembolism, LV dysfunction, hypercoagulable conditions) or an older generation mechanical AVR (i.e., ball in-Cage) or any mechanical MVR should have a INR therapeutic range of 2.5 to 3.5 target INR of 3). Sue HUTTON, et al. Chest 2012; 141:7S-47S Sade AMANDA et al. [facility] 2017; 70: 252-289 Performed By: #### L PT #### [facility] [address] [place], [place] [address] PT Coag (PPP) [Time] 11.1 s Normal 9.7-13.0 [facility] Comment on above: Result Comment: . Performed By: #### L PT #### [place] [id number] Protimeon 12-30-2019 INR Coag (PPP) [Relative time] 1.04 {INR} Normal 0.90-1.30 [facility] Comment on above: Result Comment: Regine min K Antagonist (VKA) Therapeutic Range: INR 2 to 3 (Target INR of 2.5) Note: For patients treated with VKA drugs, such as warfarin, the [employer] 2012 Guideline recommends a therapeutic INR range of 2 to 3 (target INR of 2.5). This recommendation includes high-risk patients with antiphospholipid syndrome with previous arterial or venous thromboembolism, current-generation mechanical or bioprosthetic aortic heart valve replacement. Note: Patients with mechanical aortic valve replacement and additional risk factors for thromboembolic events (atrial fibrillation, previous thromboembolism, LV dysfunction, hypercoagulable conditions) or an older generation mechanical AVR (i.e., ball in-Cage) or any mechanical MVR should have a INR therapeutic range of 2.5 to 3.5 target INR of 3). Sue GH, et al. Chest 2012; 141:7S-47S Sade RA et al. [facility] 2017; 70: 252-289 Performed By: #### L PT #### [place] [address] PT Coag (PPP) [Time] 11.0 s Normal 9.7-13.0 [facility] Comment on above: Result Comment: . Performed By: #### L PT #### [place] [id number] Protimeon 12-16-2019 INR Coag (PPP) [Relative time] 5.55 {INR} Critically high 0.90-1.30 [facility] Comment on above: Result Comment: Regine min K Antagonist (VKA) Therapeutic Range: INR 2 to 3 (Target INR of 2.5) Note: For patients treated with VKA drugs, such as warfarin, the [employer] 2012 Guideline recommends a therapeutic INR range of 2 to 3 (target INR of 2.5). This recommendation includes high-risk patients with antiphospholipid syndrome with previous arterial or venous thromboembolism, current-generation mechanical or bioprosthetic aortic heart valve replacement. Note: Patients with mechanical aortic valve replacement and additional risk factors for thromboembolic events (atrial fibrillation, previous thromboembolism, LV dysfunction, hypercoagulable conditions) or an older generation mechanical AVR (i.e., ball in-Cage) or any mechanical MVR should have a INR therapeutic range of 2.5 to 3.5 target INR of 3). Sue HUTTON, et glenn. Chest 2012; 141:7S-47S Sade AMANDA et al. [facility] 2017; 70: 252-289 Performed By: #### L PT #### [facility] [address] [place], [place] [address] PT Coag (PPP) [Time] 57.8 s High 9.7-13.0 [facility] Comment on above: Result Comment: . Performed By: #### L PT #### [address] [address] Protimeon 12-02-2019 INR Coag (PPP) [Relative time] 2.36 {INR} High 0.90-1.30 [facility] Comment on above: Result Comment: Regine min K Antagonist (VKA) Therapeutic Range: INR 2 to 3 (Target INR of 2.5) Note: For patients treated with VKA drugs, such as warfarin, the [employer] 2012 Guideline recommends a therapeutic INR range of 2 to 3 (target INR of 2.5). This recommendation includes high-risk patients with antiphospholipid syndrome with previous arterial or venous thromboembolism, current-generation mechanical or bioprosthetic aortic heart valve replacement. Note: Patients with mechanical aortic valve replacement and additional risk factors for thromboembolic events (atrial fibrillation, previous thromboembolism, LV dysfunction, hypercoagulable conditions) or an older generation mechanical AVR (i.e., ball in-Cage) or any mechanical MVR should have a INR therapeutic range of 2.5 to 3.5 target INR of 3). Sue HUTTON, et al. Chest 2012; 141:7S-47S Sade AMANDA et al. [facility] 2017; 70: 252-289 Performed By: #### L PT #### [address] [address] PT Coag (PPP) [Time] 24.8 s High 9.7-13.0 [facility] Comment on above: Result Comment: . Performed By: #### L PT #### [facility] [address] [place] [id number] Protimeon 11-08-2019 INR Coag (PPP) [Relative time] 1.08 {INR} Normal 0.90-1.30 [facility] Comment on above: Result Comment: Regine min K Antagonist (VKA) Therapeutic Range: INR 2 to 3 (Target INR of 2.5) Note: For patients treated with VKA drugs, such as warfarin, the [employer] 2012 Guideline recommends a therapeutic INR range of 2 to 3 (target INR of 2.5). This recommendation includes high-risk patients with antiphospholipid syndrome with previous arterial or venous thromboembolism, current-generation mechanical or bioprosthetic aortic heart valve replacement. Note: Patients with mechanical aortic valve replacement and additional risk factors for thromboembolic events (atrial fibrillation, previous thromboembolism, LV dysfunction, hypercoagulable conditions) or an older generation mechanical AVR (i.e., ball in-Cage) or any mechanical MVR should have a INR therapeutic range of 2.5 to 3.5 target INR of 3). Martinyatt GH, et al. Chest 2012; 141:7S-47S Sade RA, et al. [facility] 2017; 70: 252-289 Performed By: #### L PT #### [address] [address] PT Coag (PPP) [Time] 11.4 s Normal 9.7-13.0 [facility] Comment on above: Result Comment: . Performed By: #### L PT #### [facility] [address] [place], [place] [address] Chart Maintenanceon 06-06-20 17 Left ventricular Ejection fraction 60 % Invalid Interpretation Code [facility] Work Phone: Office Visiton 06-06-2017 Documentation of current medications (procedure) Done Invalid Interpretation Code [facility] Work Phone: Protein mass conc Done [facility] Work Phone: Tobacco smoking status NHIS Current every day smoker [facility] Work Phone: Tobacco use CPHS Current every day smoker Invalid Interpretation Code [facility] Work Phone: [phone] Clinical Lists Update: Prelo gunner's mate 06-03-2017 Alanine aminotransferase (ALT) 30 U/L Invalid Interpretation Code [facility] Work Phone: [phone] Albumin 3.9 g/dL Invalid Interpretation Code [facility] Work Phone: [phone] Alkaline phosphatase (ALP) 93 U/L Invalid Interpretation Code [facility] Work Phone: [phone] ALP enzyme act/vol (Bld) 93 U/L [facility] Work Phone: [phone] Aspartate aminotransferase (AST) 34 U/L Invalid Interpretation Code [facility] Work Phone: [phone] Bilirubin (direct) 0.18 mg/dL Invalid Interpretation Code [facility] Work Phone: [phone] Bilirubin (total) 1.3 mg/dL High [facility] Work Phone: [phone] bilirubin, serum, indirect 1.2 mg/dL High [facility] Work Phone: [phone] Cholesterol 134 mg/dL Invalid Interpretation Code [facility] Work Phone: [phone] Cholesterol to HDL Ratio 1.7 {ratio} High [facility] Work Phone: [phone] HDL Cholesterol 80 mg/dL Invalid Interpretation Code [facility] Work Phone: [phone] LDL Cholesterol 44 mg/dL Invalid Interpretation Code [facility] Work Phone: [phone] Protein 7.0 g/dL Invalid Interpretation Code [facility] Work Phone: [phone] Triglyceride 49 mg/dL Invalid Interpretation Code [facility] Work Phone: [phone] Office Visit: [facility] 05-01-20 17 Documentation of current medications (procedure) Done Invalid Interpretation Code [facility] Work Phone: [phone] Fall risk assessment No Invalid Interpretation Code [facility] Work Phone: [phone] Protein mass conc Done [facility] Work Phone: [phone] Chart Maintenanceon 12-10-19 17 INR Coag RelTime (PPP) 1.03 {INR} [facility] Work Phone: [phone] INR in blood by coagulation 1.03 {INR} Invalid Interpretation Code [facility] Work Phone: [phone] Prothrombin time (PT) Coag time (PPP) 10.6 s Invalid Interpretation Code [facility] Work Phone: [phone] Clinical Lists Update: Prelo gunner's mate 12-05-2016 Albumin mass conc 3.7 g/dL Invalid Interpretation Code [facility] Work Phone: [phone] Alkaline phosphatase (ALP) 103 U/L Invalid Interpretation Code [facility] Work Phone: [phone] ALP enzyme act/vol (Bld) 103 U/L [facility] Work Phone: [phone] ALT enzyme act/vol 40 U/L Invalid Interpretation Code [facility] Work Phone: [phone] AST enzyme act/vol 30 U/L Invalid Interpretation Code [facility] Work Phone: [phone] Bilirubin mass conc 0.5 mg/dL Invalid Interpretation Code [facility] Work Phone: [phone] Bilirubin.direct mass conc 0.13 mg/dL Invalid Interpretation Code [facility] Work Phone: [phone] Bilirubin.indirect mass conc 0.4 mg/dL Invalid Interpretation Code [facility] Work Phone: [phone] Cholesterol in HDL mass conc 68 mg/dL Invalid Interpretation Code [facility] Work Phone: [phone] Cholesterol in LDL mass conc 58 mg/dL Invalid Interpretation Code [facility] Work Phone: [phone] Cholesterol mass conc 136 mg/dL Invalid Interpretation Code [facility] Work Phone: [phone] Cholesterol.total/Ch olesterol in HDL mass ratio 2.0 {ratio} Low [facility] Work Phone: [phone] Protein mass conc 7.0 g/dL Invalid Interpretation Code [facility] Work Phone: [phone] Triglyceride mass conc 48 mg/dL Invalid Interpretation Code [facility] Work Phone: [phone] Office Visiton 10-30-2016 Protein mass conc yes [facility] Work Phone: [phone] Protein mass conc Done [facility] Work Phone: [phone] Smoking cessation education (procedure) yes Invalid Interpretation Code [facility] Work Phone: [phone] Tobacco smoking status NHIS Current some day smoker [facility] Work Phone: [phone] Tobacco use CPHS Current some day smoker Invalid Interpretation Code [facility] Work Phone: [phone] Clinical Lists Update: Prelo gunner's mate 10-21-2016 Anion gap 11 mmol/L Invalid Interpretation Code [facility] Work Phone: [phone] Anion gap molar conc 11 mmol/L [facility] Work Phone: [phone] Calcium mass conc 8.2 mg/dL Low [facility] Work Phone: [phone] Chloride molar conc 108 mmol/L High [facility] Work Phone: [phone] CO2 25 mmol/L Invalid Interpretation Code [facility] Work Phone: [phone] CO2 ppres (BldV) 25 mmol/L [facility] Work Phone: [phone] Creatinine mass conc 0.80 mg/dL Invalid Interpretation Code [facility] Work Phone: [phone] Erythrocytes (RBC) 5.12 10*6/uL Invalid Interpretation Code [facility] Work Phone: [phone] Glucose 97 mg/dL Invalid Interpretation Code [facility] Work Phone: [phone] Glucose mass conc 97 mg/dL [facility] Work Phone: [phone] Hematocrit (HCT) 45.2 % Invalid Interpretation Code [facility] Work Phone: [phone] Hematocrit Volume Fraction (Bld) 45.2 % [facility] Work Phone: [phone] Hemoglobin mass conc (Bld) 15.3 g/dL Invalid Interpretation Code [facility] Work Phone: [phone] Platelets 190 10*3/mm3 Invalid Interpretation Code [facility] Work Phone: [phone] Platelets #/vol (Bld) 190 10*3/mm3 [facility] Work Phone: [phone] Potassium molar conc 3.9 mmol/L Invalid Interpretation Code [facility] Work Phone: [phone] RBC #/vol (Bld) 5.12 10*6/uL [facility] Work Phone: [phone] Sodium molar conc 140 mmol/L Invalid Interpretation Code [facility] Work Phone: [phone] Urea nitrogen mass conc 11 mg/dL Invalid Interpretation Code [facility] Work Phone: [phone] WBC #/vol (Bld) 11.4 10*3/uL High [facility] Work Phone: [phone] WBC (Leukocytes) 11.4 10*3/uL High [facility] Work Phone: [phone] Clinical Lists Update: Prelo gunner's mate 10-18-2016 Left ventricular Ejection fraction 60 % [facility] Work Phone: [phone] Coumadin Management: Annia guerra Calcon 10-14-2016 INR Coag RelTime (Bld) Hospital lab Invalid Interpretation Code [facility] Work Phone: [phone] INR in blood by coagulation 2 to 3 Invalid Interpretation Code [facility] Work Phone: [phone] international normalized ratio (INR) range 2 to 3 [facility] Work Phone: [phone] Prothrombin time (PT) Coag time (PPP) 28.5 s Invalid Interpretation Code [facility] Work Phone: [phone] Replaced Document: Vinicio Marie CG Observationson 06-12-2016 EKG QRS axis -6 deg [facility] Work Phone: [phone] electrocardiogram interpretation Sinus Bradycardia Low voltage in limb leads. -Old anterior infarct. ABNORMAL Invalid Interpretation Code [facility] Work Phone: [phone] GE use only - for [employer] import when terms are not otherwise specified 444 ms Invalid Interpretation Code [facility] Work Phone: [phone] Interpretation Sinus Bradycardia Lo w voltage in limb leads. -Old anterior infarct. ABNORMAL [facility] Work Phone: [phone] P Blanket 80 deg [facility] Work Phone: [phone] P wave axis, electrocardiogram 80 deg Invalid Interpretation Code [facility] Work Phone: [phone] NC Interval 166 ms [facility] Work Phone: [phone] NC interval, electrocardiogram 166 ms Invalid Interpretation Code [facility] Work Phone: [phone] Pulse (Heart Rate) 53 /min Invalid Interpretation Code [facility] Work Phone: [phone] QRS axis, electrocardiogram -6 deg Invalid Interpretation Code [facility] Work Phone: [phone] QRS Duration 92 ms [facility] Work Phone: [phone] QRS duration, electrocardiogram 92 ms Invalid Interpretation Code [facility] Work Phone: [phone] QT Interval new path ms [facility] Work Phone: [phone] QT interval, electrocardiogram new path ms Invalid Interpretation Code [facility] Work Phone: [phone] QTc Costello 444 ms [facility] Work Phone: [phone] T Blanket 64 deg [facility] Work Phone: [phone] T wave axis, electrocardiogram 64 deg Invalid Interpretation Code [facility] Work Phone: [phone] Office Visiton 12-06-2014 cardiac risk group C Invalid Interpretation Code [facility] Work Phone: [phone] General cardiovascular disease 10Y risk [#] [place]D'[place]ost[place] o N/A Invalid Interpretation Code [facility] Work Phone: [phone] Tobacco smoking status NHIS Never Invalid Interpretation Code [facility] Work Phone: [phone] Office Visiton 11-25-2013 Alcoholism counseling (procedure) no Invalid Interpretation Code [facility] Work Phone: [phone] Protein mass conc no [facility] Work Phone: [phone] Lab Report: LIPIDon 11-16-19 13 Lipoprotein.pre-beta mass conc 11 mg/dL Normal 5-40 [facility] Work Phone: [phone] Lab Reporton 02-01-2012 Albumin/Globulin mass ratio 1.2 {ratio} Invalid Interpretation Code [facility] Work Phone: [phone] Vital Signs Date Time Vital Sign Value Performing Clinician Faci lity 07-20-2024 12:41-0400 Body height 179 cm Darren Moran MD Work Phone: [facility] 07-20-2024 12:41-0400 Body mass index (BMI) [Ratio] 18.45 kg/m2 Darren Moran MD Work Phone: [facility] 07-20-2024 12:41-0400 Body temperature 98.1 [degF] Darren Moran MD Work Phone: [facility] 07-20-2024 12:41-0400 Body weight 59.1 kg Darren Moran MD Work Phone: [facility] 07-20-2024 12:41-0400 Diastolic blood pressure 82 mm[Hg] Darren Moran MD Work Phone: [facility] 07-20-2024 12:41-0400 Heart rate 67 /min Darren Moran MD Work Phone: [facility] 07-20-2024 12:41-0400 Systolic blood pressure 143 mm[Hg] Darren Moran MD Work Phone: [facility] 05-13-2024 11:24-0400 Body mass index (BMI) [Ratio] 17.13 kg/m2 Ender Rollins MD Work Phone: [facility] 05-13-2024 11:24-0400 Body temperature 97.3 [degF] Ender Rollins MD Work Phone: [facility] 05-13-2024 11:24-0400 Body weight 55.7 kg Ender Rollins MD Work Phone: [facility] 05-13-2024 11:24-0400 Diastolic blood pressure 66 mm[Hg] Ender Rollins MD Work Phone: [facility] 05-13-2024 11:24-0400 Heart rate 51 /min Ender Rollins MD Work Phone: [facility] 05-13-2024 11:24-0400 Respiratory rate 16 /min Ender Rollins MD Work Phone: [facility] 05-13-2024 11:24-0400 SaO2% (BldA) [Mass fraction] 98 % Ender Rollins MD Work Phone: [facility] 05-13-2024 11:24-0400 Systolic blood pressure 118 mm[Hg] Ender Rollins MD Work Phone: [facility] 05-11-2024 18:46-0400 Body mass index (BMI) [Ratio] 17.1 kg/m2 Ender Rollins MD Work Phone: [facility] 05-11-2024 18:46-0400 Body temperature 97.5 [degF] Ender Rollins MD Work Phone: [facility] 05-11-2024 18:46-0400 Body weight 55.61 kg Ender Rollins MD Work Phone: [facility] 05-11-2024 18:46-0400 Diastolic blood pressure 58 mm[Hg] Ender Rollins MD Work Phone: [facility] 05-11-2024 18:46-0400 Heart rate 50 /min Ender Rollins MD Work Phone: [facility] 05-11-2024 18:46-0400 Respiratory rate 16 /min Ender Rollins MD Work Phone: [facility] 05-11-2024 18:46-0400 SaO2% (BldA) [Mass fraction] 100 % Ender Rollins MD Work Phone: [facility] 05-11-2024 18:46-0400 Systolic blood pressure 96 mm[Hg] Ender Rollins MD Work Phone: [facility] 03-30-2024 11:00-0400 Body mass index (BMI) [Ratio] 17.69 kg/m2 Ender Rollins MD Work Phone: [facility] 03-30-2024 11:00-0400 Body weight 57.52 kg Ender Rollins MD Work Phone: [facility] 03-30-2024 11:00-0400 Diastolic blood pressure 68 mm[Hg] Ender Rollins MD Work Phone: [facility] 03-30-2024 11:00-0400 Heart rate 58 /min Ender Rollins MD Work Phone: [facility] 03-30-2024 11:00-0400 Respiratory rate 16 /min Ender Rollins MD Work Phone: [facility] 03-30-2024 11:00-0400 SaO2% (BldA) [Mass fraction] 96 % Ender Rollins MD Work Phone: [facility] 03-30-2024 11:00-0400 Systolic blood pressure 118 mm[Hg] Ender Rollins MD Work Phone: [facility] 02-27-2024 10:25-0400 Body mass index (BMI) [Ratio] 17.96 kg/m2 Ender Rollins MD Work Phone: [facility] 02-27-2024 10:25-0400 Body weight 58.42 kg Ender Rollins MD Work Phone: [facility] 02-27-2024 10:25-0400 Diastolic blood pressure 70 mm[Hg] Ender Rollins MD Work Phone: [facility] 02-27-2024 10:25-0400 Heart rate 56 /min Ender Rollins MD Work Phone: [facility] 02-27-2024 10:25-0400 Respiratory rate 16 /min Ender Rollins MD Work Phone: [facility] 02-27-2024 10:25-0400 SaO2% (BldA) [Mass fraction] 96 % Ender Rollins MD Work Phone: [facility] 02-27-2024 10:25-0400 Systolic blood pressure 120 mm[Hg] Ender Rollins MD Work Phone: [facility] 07-09-2023 11:48-0400 Body weight 62.69 kg Shantel Podlogar MAIL [employer]ION [employer]ME [employer]ER[employer] Work Phone: [facility] 07-09-2023 11:48-0400 Diastolic blood pressure 82 mm[Hg] Shantel Podlogar MAIL DISTRIBUTION SCHEME EXAMINER.[employer] Work Phone: [facility] 07-09-2023 11:48-0400 Heart rate 59 /min Shantel Podlogar MAIL DISTRIBUTION SCHEME EXAMINER.[employer] Work Phone: [facility] 07-09-2023 11:48-0400 Respiratory rate 20 /min Shantel Podlogar MAIL DISTRIBUTION SCHEME EXAMINER.[employer] Work Phone: [facility] 07-09-2023 11:48-0400 SaO2% (BldA) [Mass fraction] 97 % Shantel Podlogar MAIL DISTRIBUTION SCHEME EXAMINER.[employer] Work Phone: [facility] 07-09-2023 11:48-0400 Systolic blood pressure 142 mm[Hg] Shantel Podlogar MAIL DISTRIBUTION SCHEME EXAMINER.[employer] Work Phone: [facility] 04-25-2023 10:36-0400 Body weight 63.96 kg Makayla Gama MAIL DISTRIBUTION SCHEME EXAMINER.[employer] Work Phone: [facility] 01-31-2023 14:57-0400 Body height 180.3 cm Tami Chakraborty MD Work Phone: [facility] 01-31-2023 14:57-0400 Body temperature 97.9 [degF] Tami Chakraborty MD Work Phone: [facility] 01-31-2023 14:57-0400 Body weight 63.41 kg Tami Chakraborty MD Work Phone: [facility] 01-31-2023 14:57-0400 Diastolic blood pressure 72 mm[Hg] Tami Chakraborty MD Work Phone: [facility] 01-31-2023 14:57-0400 Heart rate 76 /min Tami Chakraborty MD Work Phone: [facility] 01-31-2023 14:57-0400 SaO2% (BldA) [Mass fraction] 98 % Tami Chakraborty MD Work Phone: [facility] 01-31-2023 14:57-0400 Systolic blood pressure 128 mm[Hg] Tami Chakraborty MD Work Phone: [facility] 01-27-2023 11:14-0400 Body height 177.1 cm Pulm Wstr Work Phone: [facility] 01-27-2023 11:14-0400 Body weight 61.69 kg Pulm [facility]str Work Phone: [facility] 01-27-2023 11:14-0400 Heart rate 50 /min [facility] Work Phone: [facility] 01-27-2023 11:14-0400 Respiratory rate 14 /min [facility] Work Phone: [facility] 01-27-2023 11:14-0400 SaO2% (BldA) [Mass fraction] 96 % [facility] Work Phone: [facility] 01-24-2023 10:00-0400 Body height 175.3 cm Makayla Coyner MAIL DISTRIBUTION SCHEME EXAMINER.[employer] Work Phone: [facility] 01-24-2023 10:00-0400 Body weight 63.5 kg Makayla Coyner MAIL DISTRIBUTION SCHEME EXAMINER.[employer] Work Phone: [facility] 01-22-2023 14:25-0400 Body weight 62.6 kg Ender Rollins MD Work Phone: [facility] 01-22-2023 14:25-0400 Diastolic blood pressure 70 mm[Hg] Ender Rollins MD Work Phone: [facility] 01-22-2023 14:25-0400 Heart rate 60 /min Ender Rollins MD Work Phone: [facility] 01-22-2023 14:25-0400 Respiratory rate 16 /min Ender Rollins MD Work Phone: [facility] 01-22-2023 14:25-0400 SaO2% (BldA) [Mass fraction] 98 % Ender Rollins MD Work Phone: [facility] 01-22-2023 14:25-0400 Systolic blood pressure 110 mm[Hg] Ender Rollins MD Work Phone: [facility] 01-07-2023 13:23-0400 Body height 175.3 cm Makayla Coyner MAIL DISTRIBUTION SCHEME EXAMINER.[employer] Work Phone: [facility] 01-07-2023 13:23-0400 Body weight 63.96 kg Makayla Coyner MAIL DISTRIBUTION SCHEME EXAMINER.[employer] Work Phone: [facility] 12-23-2022 10:31-0500 Body height 176.5 cm Sharita Sprockel PA-C Work Phone: [facility] 12-23-2022 10:31-0500 Body mass index (BMI) [Ratio] 21.99 kg/m2 Sharita Sprockel PA-C Work Phone: [facility] 12-23-2022 10:31-0500 Body temperature 97.81 [degF] Sharita Sprockel PA-C Work Phone: [facility] 12-23-2022 10:31-0500 Body weight 68.49 kg Sharita Sprockel PA-C Work Phone: [facility] 12-23-2022 10:31-0500 Diastolic blood pressure 60 mm[Hg] Sharita Sprockel PA-C Work Phone: [facility] 12-23-2022 10:31-0500 Heart rate 58 /min Sharita Sprockel PA-C Work Phone: [facility] 12-23-2022 10:31-0500 Respiratory rate 18 /min Sharita Sprockel PA-C Work Phone: [facility] 12-23-2022 10:31-0500 SaO2% (BldA) [Mass fraction] 97 % Sharita Sprockel PA-C Work Phone: [facility] 12-23-2022 10:31-0500 Systolic blood pressure 123 mm[Hg] Sharita Sprockel PA-C Work Phone: [facility] 11-29-2022 11:25-0500 Body temperature 98.01 [degF] Lizeth West MD Work Phone: [facility] 11-29-2022 11:25-0500 Diastolic blood pressure 64 mm[Hg] Lizeth West MD Work Phone: [facility] 11-29-2022 11:25-0500 Heart rate 63 /min Lizeth West MD Work Phone: [facility] 11-29-2022 11:25-0500 Respiratory rate 20 /min Lizeth West MD Work Phone: [facility] 11-29-2022 11:25-0500 SaO2% (BldA) [Mass fraction] 94 % Lizeth West MD Work Phone: [facility] 11-29-2022 11:25-0500 Systolic blood pressure 127 mm[Hg] Lizeth West MD Work Phone: [facility] 11-21-2022 11:30-0500 Body height 176.5 cm iLzeth West MD Work Phone: [facility] 11-21-2022 11:30-0500 Body mass index (BMI) [Ratio] 19.77 kg/m2 Lizeth West MD Work Phone: [facility] 11-21-2022 11:30-0500 Body weight 61.6 kg Lizeth West MD Work Phone: [facility] 08-21-2022 10:06-0400 Body weight 64.41 kg Ender Rollins MD Work Phone: [facility] 08-21-2022 10:06-0400 Diastolic blood pressure 74 mm[Hg] Ender Rollins MD Work Phone: [facility] 08-21-2022 10:06-0400 Heart rate 66 /min Ender Rollins MD Work Phone: [facility] 08-21-2022 10:06-0400 Respiratory rate 16 /min Ender Rollins MD Work Phone: [facility] 08-21-2022 10:06-0400 Systolic blood pressure 120 mm[Hg] Ender Rollins MD Work Phone: [facility] 02-04-2022 11:43-0400 Body weight 66.91 kg Ender Rollins MD Work Phone: [facility] 02-04-2022 11:43-0400 Diastolic blood pressure 74 mm[Hg] Ender Rollins MD Work Phone: [facility] 02-04-2022 11:43-0400 Heart rate 65 /min Ender Rollins MD Work Phone: [facility] 02-04-2022 11:43-0400 Respiratory rate 18 /min Ender Rollins MD Work Phone: [facility] 02-04-2022 11:43-0400 SaO2% (BldA) [Mass fraction] 97 % Ender Rollins MD Work Phone: [facility] 02-04-2022 11:43-0400 Systolic blood pressure 116 mm[Hg] Ender Rollins MD Work Phone: [facility] 06-06-2017 12:31-0400 BMI (Body Mass Index) 21.06 kg/m2 [facility] Work Phone: 06-06-2017 12:31-0400 BP Diastolic 70 mm[Hg] [facility] Work Phone: 06-06-2017 12:31-0400 BP Systolic 144 mm[Hg] [facility] Work Phone: 06-06-2017 12:31-0400 Height 180.34 cm [facility] Work Phone: 06-06-2017 12:31-0400 Respiratory Rate 18 /min [facility] Work Phone: 06-06-2017 12:31-0400 Weight 68.49 kg [facility] Work Phone: 05-01-2017 14:01-0400 BMI (Body Mass Index) 20.92 kg/m2 [facility] Work Phone: 05-01-2017 14:01-0400 BP Diastolic 60 mm[Hg] [facility] Work Phone: 05-01-2017 14:01-0400 BP Diastolic 62 mm[Hg] [facility] Work Phone: 05-01-2017 14:01-0400 BP Systolic 120 mm[Hg] [facility] Work Phone: 05-01-2017 14:01-0400 BP Systolic 88 mm[Hg] [facility] Work Phone: 05-01-2017 14:01-0400 BP Systolic 100 mm[Hg] [facility] Work Phone: 05-01-2017 14:01-0400 Height 180.34 cm [facility] Work Phone: 05-01-2017 14:01-0400 Pulse (Heart Rate) 70 /min [facility] Work Phone: 05-01-2017 14:01-0400 Respiratory Rate 18 /min [facility] Work Phone: 05-01-2017 14:01-0400 Weight 68.04 kg [facility] Work Phone: 10-30-2016 10:39-0500 BMI (Body Mass Index) 21.34 kg/m2 Harantoinette Mac[facility] Work Phone: 10-30-2016 10:39-0500 BP Diastolic 70 mm[Hg] Harumi DeFinbrayden [facility] Work Phone: 10-30-2016 10:39-0500 BP Systolic 150 mm[Hg] [facility] De[facility]is [facility] Work Phone: 10-30-2016 10:39-0500 BSA (Body Surface Area) 1.88 m2 Harantoinette DeFinis [facility] Work Phone: 10-30-2016 10:39-0500 Pulse (Heart Rate) 64 /min Harumi DeFinis [facility] Work Phone: 10-30-2016 10:39-0500 Respiratory Rate 20 /min Harumi DeFinis [facility] Work Phone: 10-30-2016 10:39-0500 Weight 69.4 kg Hector DeFinbrayden [facility] Work Phone: 06-12-2016 11:37-0400 Heart rate 53 /min Hector DeFinbrayden [facility] Work Phone: 02-05-2012 16:38-0400 Height 180.34 cm Hector DeFinbrayden [facility] Work Phone: Encounters Encounter Date Encounter Type Care Provider Facility Start: 07-20-2024 End: 07-20-2024 ambulatory ENDER ROLLINS Facility:[facility] Start: 07-20-2024 End: 07-20-2024 Patient encounter procedure Darren Moran MD Work Phone: Urology [facility] Comment on above: 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); Renal mass Start: 05-17-2024 Telephone encounter Roge Rollins MD Work Phone: [facility] Comment on above: Results Start: 05-13-2024 End: 05-13-2024 Patient encounter procedure Ender Rollins MD Work Phone: [facility] Comment on above: Cellulitis of skin ( Primary Dx); Skin lesion; Unintentional weight loss; Underweight; SHON (generalized anxiety disorder) Start: 05-13-2024 End: 05-13-2024 ambulatory ENDER ROLLINS Facility:[facility] Start: 05-11-2024 End: 05-11-2024 ambulatory ENDER ROLLINS Facility:[facility] Start: 05-11-2024 End: 05-11-2024 Subsequent hospital visit by physician Xr [facility] Work Phone: Radiology Comment on above: Unintentional weight loss [R63.4] Start: 05-11-2024 End: 05-11-2024 Patient encounter procedure Ender Rollins MD Work Phone: [facility] Comment on above: Unintentional weight loss (Primary Dx); Alzheimer's dementia with anxiety, unspecified dementia severity, unspecified timing of dementia onset (HCC); Cellulitis of skin; Skin lesion; Hypotension, unspecified hypotension type; Bradycardia; Chronic obstructive pulmonary disease, unspecified COPD type (HCC) Start: 05-11-2024 End: 05-11-2024 ambulatory ENDER ROLLINS Facility:[facility] Start: 03-31-2024 Telephone encounter Marcella Franklin Start: 03-30-2024 End: 03-30-2024 Subsequent hospital visit by physician Xr [facility] Work Phone: Radiology Comment on above: Weight loss [R63.4] Start: 03-30-2024 End: 03-30-2024 ambulatory ENDER ROLLINS Facility:[facility] Start: 03-30-2024 End: 03-30-2024 Patient encounter procedure Ender Rollins MD Work Phone: [facility] Comment on above: SHON (generalized anx iety disorder) (Primary Dx); Alzheimer's dementia with anxiety, unspecified dementia severity, unspecified timing of dementia onset (HCC); Weight loss; Encounter for immunization Start: 02-27-2024 End: 02-27-2024 ambulatory ENDER ROLLINS Facility:[facility] Start: 02-27-2024 End: 02-27-2024 Patient encounter procedure Ender Rollins MD Work Phone: [facility] Comment on above: SHON (generalized anx iety disorder) (Primary Dx); Alzheimer's dementia with anxiety, unspecified dementia severity, unspecified timing of dementia onset (HCC); Weight loss Start: 01-30-2024 End: 01-30-2024 ambulatory ENDER ROLLINS Facility:[facility] Start: 01-13-2024 Refill Ender Rollins MD Work Phone: [facility] Comment on above: Refill Request Start: 11-07-2023 End: 11-07-2023 ambulatory MAKAYLA GAMA Facility:[facility] Start: 08-01-2023 Refill Ender Rollins MD Work Phone: [facility] Comment on above: Refill Request Start: 07-09-2023 End: 07-09-2023 Patient encounter procedure Shantel Chadwick APRN.[employer] Work Phone: [facility] Comment on above: Primary hypertension (Primary Dx); Encounter for immunization; Coronary artery disease involving coe[place]'alene coronary artery of coe[place] heart without angina pectoris; Memory impairment; Tobacco use; Hypercoagulable state (HCC); Chronic obstructive pulmonary disease, unspecified COPD type (HCC); Pure hypercholesterolemia; Benign prostatic hyperplasia, unspecified whether lower urinary tract symptoms present; Upper back pain Start: 04-25-2023 End: 04-25-2023 Patient encounter procedure Makayla Gama APRN.[employer] Work Phone: Urology Comment on above: BPH with obstruction /lower urinary tract symptoms (Primary Dx) Start: 04-04-2023 End: 04-04-2023 Subsequent hospital visit by physician Mana [facility] Work Phone: Radiology Comment on above: Chronic obstructive pulmonary disease, unspecified COPD type (HCC) [J44.9] Start: 02-24-2023 Telephone encounter Roge Rollins MD Work Phone: [facility] Comment on above: Patient Update Start: 01-31-2023 End: 01-31-2023 Patient encounter procedure Tami Chakraborty MD Work Phone: General Surgery Comment on above: Thyroid nodule Start: 01-29-2023 ambulatory SHARITA Ángel BETTS Faci lity:[facility] Start: 01-27-2023 Telephone encounter Roge Rollins MD Work Phone: [facility] Comment on above: Results Refill Request Start: 01-27-2023 End: 01-27-2023 ambulatory [facility] Work Phone: [facility] Comment on above: Spirometry Start: 01-27-2023 End: 01-27-2023 Patient encounter procedure [facility] Work Phone: [facility] [place] Start: 01-24-2023 Telephone encounter Marcella Morales Rigoberto Comment on above: Transportation Start: 01-24-2023 End: 01-24-2023 Patient encounter procedure Makayla Gama MAIL DISTRIBUTION SCHEME EXAMINER.[employer] Work Phone: Urology Comment on above: BPH with obstruction /lower urinary tract symptoms (Primary Dx); Urine retention Start: 01-22-2023 End: 01-22-2023 Subsequent hospital visit by physician Mana [facility] Work Phone: Radiology Comment on above: Cough in adult patie nt [R05.9] Start: 01-22-2023 End: 01-22-2023 Patient encounter procedure Ender Rollins MD Work Phone: [facility] Comment on above: Intracranial hemorrh age (HCC) (Primary Dx); Thyroid nodule; Cough in adult patient; Hypercoagulable state (HCC); Factor 5 Leiden mutation, heterozygous (HCC); Memory impairment; Primary hypertension; Tobacco use; Acute urinary retention Start: 01-22-2023 Telephone encounter Roge Rollins MD Work Phone: [facility] Comment on above: Results Start: 01-17-2023 Telephone encounter Roge Rollins MD Work Phone: [facility] Comment on above: Appointment Start: 01-15-2023 End: 01-15-2023 Subsequent hospital visit by physician Johnnie Bhandari MAIL DISTRIBUTION SCHEME EXAMINER-[employer] Work Phone: [facility] Comment on above: Canceled (Transporta tion Unavailable) Start: 01-15-2023 ambulatory JOHNNIE BHANDARI Fac ility:[facility] Start: 01-07-2023 End: 01-07-2023 Patient encounter procedure Makayla Gama MAIL DISTRIBUTION SCHEME EXAMINER.[employer] Work Phone: Urology Comment on above: Urine retention (Allison tl Dx); BPH with obstruction/lower urinary tract symptoms Start: 12-23-2022 End: 12-23-2022 Subsequent hospital visit by physician Sharita PERKINSC Work Phone: [facility] Comment on above: Canceled (Preferred Different Location/Provider) Start: 12-23-2022 ambulatory SHARITALINDA BETTS Faci lity:[facility] Start: 12-23-2022 End: 12-23-2022 Office outpatient visit 40 minutes Sharitalinda Morleyel PA-C Work Phone: Division of Hematology & Oncology Comment on above: History of venous th romboembolism (Primary Dx); Factor V Leiden mutation; Dural venous sinus thrombosis; History of intracranial hemorrhage; Blood in stool Start: 12-11-2022 End: 12-11-2022 Emergency department patient visit YUN MARTE Facility:[facility] Start: 12-10-2022 Telephone encounter Roge Rollins MD Work Phone: [facility] Comment on above: Patient Question Start: 11-20-2022 Telephone encounter Yamini Beyer LPN [facility] Comment on above: Opened In Error Care Coordination (W CH ) Start: 11-20-2022 End: 11-29-2022 Evaluation and management of inpatient SURGERY - NEURO CONSULT Facility:[facility] Start: 11-20-2022 End: 11-29-2022 Evaluation and management of inpatient Lizeth West MD Work Phone: [id number] Comment on above: Factor V deficiency Start: 10-18-2022 Telephone encounter Shantel Dawn diana LOFTON Work Phone: [facility] Comment on above: Results Start: 10-16-2022 End: 10-17-2022 ambulatory ENDER ROLLINS Facility:[facility] Start: 10-16-2022 Telephone encounter Roge Rollins MD Work Phone: [facility] Comment on above: Anticoagulation Start: 09-18-2022 Telephone encounter Roge Rollins MD Work Phone: [facility] Comment on above: Anticoagulation Start: 09-16-2022 End: 09-17-2022 ambulatory ENDER ROLLINS Facility:[facility] Start: 08-21-2022 End: 08-21-2022 Patient encounter procedure Ender Rollins MD Work Phone: [facility] Comment on above: Dementia without beh avioral disturbance (HCC) (Primary Dx); Skin lesion of right ear; Actinic keratoses; Seborrheic keratoses; Coronary artery disease involving coeur d'alene coronary artery of coe[place] heart without angina pectoris; Primary hypertension; Pure hypercholesterolemia; Hypercoagulable state (HCC); Chronic anticoagulation Assistance with stafford sportation (Primary Dx) Start: 08-21-2022 Telephone encounter Marcella WILD [facility] Comment on above: Transportation Start: 08-19-2022 End: 08-20-2022 ambulatory ENDER ROLLINS Facility:[facility] Start: 07-17-2022 Telephone encounter Roge Rollins MD Work Phone: [facility] Comment on above: Anticoagulation Start: 07-17-2022 End: 07-18-2022 ambulatory ENDER ROLLINS Facility:[facility] Start: 06-19-2022 Telephone encounter Roge Rollins MD Work Phone: [facility] Comment on above: Anticoagulation Start: 06-19-2022 End: 06-20-2022 ambulatory ENDER ROLLINS Facility:[facility] Start: 05-22-2022 Telephone encounter Roge Rollins MD Work Phone: [facility] Comment on above: Anticoagulation Start: 05-22-2022 End: 05-23-2022 ambulatory ENDER ROLLINS Facility:[facility] Start: 05-08-2022 Telephone encounter Roge Rollins MD Work Phone: [facility] Comment on above: Anticoagulation Start: 05-08-2022 End: 05-09-2022 ambulatory ENDER ROLLINS Facility:[facility] Start: 05-01-2022 Telephone encounter Roge Rollins MD Work Phone: [facility] Comment on above: Anticoagulation Start: 02-20-2022 End: 02-21-2022 ambulatory ENDER ROLLINS Facility:[facility] Start: 02-15-2022 Telephone encounter Roge Rollins MD Work Phone: [facility] Comment on above: Results Anticoagulation Patient Update Start: 02-14-2022 Telephone encounter Roge Rollins MD Work Phone: [facility] Comment on above: lab question for PCP Start: 02-05-2022 Telephone encounter Roge Rollins MD Work Phone: [facility] Comment on above: Anticoagulation Results Start: 02-04-2022 End: 02-04-2022 Patient encounter procedure Ender Rollins MD Work Phone: [facility] Comment on above: Coronary artery dise ase involving coeur d'alene coronary artery of coe[place]'al[place] heart without angina pectoris (Primary Dx); Primary hypertension; Pure hypercholesterolemia; Intracranial hemorrhage (HCC); Hypercoagulable state (HCC); Memory impairment Start: 06-25-2021 Telephone encounter Roge Rollins MD Work Phone: [facility] Comment on above: Opened In Error Procedures Date Procedure Procedure Detail Performing Clinician Start: 05-11-2024 Radiologic exam ches t 2 views Ender Rollins MD Work Phone: Start: 03-30-2024 Radiologic exam ches t 2 views Ender Rollins MD Work Phone: Start: 03-30-2024 [employer] COVI D-19 VACCINE (2022- SEASON) AGE 12+ YR Ender Rollins MD Work Phone: Start: 07-09-2023 INFLUENZA VACCINE, P RSV FREE, AGE 65+ YR, HIGH DOSE, QUADRIVALENT (FLUZONE HIGH-DOSE) Shantel Linkloglucas MAIL DISTRIBUTION SCHEME EXAMINER.[employer] Work Phone: Start: 04-04-2023 Radiologic exam ches t 2 views Ender Rollins MD Work Phone: Start: 01-27-2023 Brncdilat rspse spmt ry pre&post-brncdilat admn Ender Rollins MD Work Phone: Start: 01-22-2023 Radiologic exam ches t 2 views Ender Rollins MD Work Phone: Start: 12-23-2022 CBC AND ELECTRONIC DIFF Sharita C Sprockel PA-C Work Phone: Start: 12-23-2022 Complete blood count with white cell differential, automated Sharita C Sprockel PA-C Work Phone: Start: 12-23-2022 Comprehensive metabo lic panel Sharita C Sprockel PA-C Work Phone: Start: 12-23-2022 DNA EXTRACTION, EZ1 Vicky linda C Sprockel PA-C Work Phone: Start: 12-23-2022 F2 gene analysis 202 10g >a variant Sharita C Sprockel PA-C Work Phone: Start: 12-23-2022 MOLECULAR SUMMARY Abiga il C Sprockel PA-C Work Phone: Start: 11-29-2022 Creatinine blood Nica Irwin MAIL DISTRIBUTION SCHEME EXAMINER-[employer] Work Phone: Start: 11-28-2022 CONTINUOUS CARDIAC MONITORING STRIP Other Other Start: 11-28-2022 SARS-CoV-2 (COVID-19 ) RNA [Presence] in Unspecified specimen by NATHANIEL with probe detection Laney Lani Burlesonv MAIL DISTRIBUTION SCHEME EXAMINER-[employer] Work Phone: Start: 11-28-2022 Creatinine blood Nica Irwin MAIL DISTRIBUTION SCHEME EXAMINER-[employer] Work Phone: Start: 11-28-2022 EXTRA MICRO Fatou bosch MD Work Phone: Start: 11-28-2022 URINALYSIS REFLEX TO CULTURE Fatou Gray MD Work Phone: Start: 11-28-2022 Urnls dip stick/tabl et reagent auto microscopy Fatou Gray MD Work Phone: Start: 11-27-2022 Electrolyte panel Cris Acosta Badmorgan MAIL DISTRIBUTION SCHEME EXAMINER-[employer] Work Phone: Start: 11-26-2022 CONTINUOUS CARDIAC MONITORING STRIP Other Other Start: 11-26-2022 Electrolyte panel Cris Acosta Bader MAIL DISTRIBUTION SCHEME EXAMINER-[employer] Work Phone: Start: 11-25-2022 Blood gases any comb ination ph pco2 po2 co2 hco3 Ramez Irwin MAIL DISTRIBUTION SCHEME EXAMINER-[employer] Work Phone: Start: 11-25-2022 Radiologic exam ches t single view Ramez Irwin MAIL DISTRIBUTION SCHEME EXAMINER-[employer] Work Phone: Start: 11-25-2022 End: 11-25-2022 Cul bact xcpt urine blood/stool aerobic isol Ramez Irwin MAIL DISTRIBUTION SCHEME EXAMINER-[employer] Work Phone: Start: 11-25-2022 Creatinine blood Krista Gruber i, MD Work Phone: Start: 11-24-2022 CONTINUOUS CARDIAC MONITORING STRIP Other Other Start: 11-24-2022 Radiologic exam ches t single view Jacque Wheeler MAIL DISTRIBUTION SCHEME EXAMINER-[employer] Work Phone: Start: 11-24-2022 Creatinine blood Krista Gruber i, MD Work Phone: Start: 11-23-2022 CONTINUOUS CARDIAC MONITORING STRIP Other Other Start: 11-23-2022 Infectious agent dna /rna influenza 1st 2 types Jacque Wheeler MAIL DISTRIBUTION SCHEME EXAMINER-[employer] Work Phone: Start: 11-23-2022 SARS-CoV-2 (COVID-19 ) RNA [Presence] in Unspecified specimen by NATHANIEL with probe detection Jacque Wheeler MAIL DISTRIBUTION SCHEME EXAMINER-[employer] Work Phone: Start: 11-23-2022 C-reactive protein Eduardo Edwards MD Work Phone: Start: 11-23-2022 Electrolyte panel Cm Garibay Sheila MAIL DISTRIBUTION SCHEME EXAMINER-[employer] Work Phone: Start: 11-22-2022 Radiologic exam ches t single view Fatou Gray MD Work Phone: Start: 11-22-2022 Culture bacterial bl ood aerobic w/id isolates Fatou Gray MD Work Phone: Start: 11-22-2022 EXTRA MICRO Fatou bosch MD Work Phone: Start: 11-22-2022 URINALYSIS REFLEX TO CULTURE Fatou Gray MD Work Phone: Start: 11-22-2022 Ct head/brain w/o co ntrast material Cm Sosa MAIL DISTRIBUTION SCHEME EXAMINER-[employer] Work Phone: Start: 11-22-2022 Basic metabolic pane l calcium total Chris Contreras MD Work Phone: Start: 11-22-2022 C-reactive protein Eduardo Edwards MD Work Phone: Start: 11-22-2022 CONTINUOUS CARDIAC MONITORING STRIP Other Other Start: 11-21-2022 Echo tthrc r-t 2d w/wom-mode compl spec&colr d Brook Dimas MAIL DISTRIBUTION SCHEME EXAMINER-[employer] Work Phone: Start: 11-21-2022 Cardiolipin antibody each ig class Marcelino Field MAIL DISTRIBUTION SCHEME EXAMINER-[employer] Work Phone: Start: 11-21-2022 EXTRA LIGHT BLUE TOP DOUBLE SPIN LUPUS Marcelino Reddyffel MAIL DISTRIBUTION SCHEME EXAMINER-[employer] Work Phone: Start: 11-21-2022 Fibrinogen activity Car dustin Reddyffel MAIL DISTRIBUTION SCHEME EXAMINER-[employer] Work Phone: Start: 11-21-2022 LAWUP-PATH Marcelino Deutsch aumleffel MAIL DISTRIBUTION SCHEME EXAMINER-[employer] Work Phone: Start: 11-21-2022 Assay of magnesium Jose Armando Contreras MD Work Phone: Start: 11-21-2022 C-reactive protein Arch kodi Edwards MD Work Phone: Start: 11-20-2022 Glucose measurement, blood Zurid Dallin Garcia MD Work Phone: Start: 11-20-2022 Glucose measurement, blood Zurid Dallin Garcia MD Work Phone: Start: 11-20-2022 End: 11-20-2022 Mri brain brain stem w/o w/contrast material Brook Dimas MAIL DISTRIBUTION SCHEME EXAMINER[employer] Work Phone: Start: 11-20-2022 Radiologic exam ches t single view Brook Dimas MAIL DISTRIBUTION SCHEME EXAMINER[employer] Work Phone: Start: 11-20-2022 Ct head/brain w/o co ntrast material Brook Dimas MAIL DISTRIBUTION SCHEME EXAMINER[employer] Work Phone: Start: 11-20-2022 Prothrombin time Lizeth West MD Work Phone: Start: 11-20-2022 Glucose measurement, blood Ulises Garcia MD Work Phone: Start: 11-20-2022 Prothrombin time Zurid Christo Garcia MD Work Phone: Start: 11-20-2022 End: 11-20-2022 Antibody screen Lizeth West MD Work Phone: Comment on above: Performed By: #### X M #### [facility] ([facility]) [address] [place] [address] Start: 11-20-2022 IP CONSULT TO SPEECH THERAPY Chris Contreras MD Work Phone: Start: 11-20-2022 ABORH TYPE RECONFIRMATION Devonketty DOW Start: 11-20-2022 Culture bct isol&prs mptv id isolate ea urine Yamini Perez MD Work Phone: Start: 11-20-2022 EXTRA MICRO Yamini tariq MD Work Phone: Start: 11-20-2022 Urnls dip stick/tabl et rgnt auto w/o microscopy Yamini Perez MD Work Phone: Start: 11-20-2022 End: 11-20-2022 Ct angiography head w/contrast/noncontrast Yamini Perez MD Work Phone: Start: 11-20-2022 CBC AND ELECTRONIC DIFF Yamini Perez MD Work Phone: Start: 11-20-2022 Complete blood count with white cell differential, automated Yamini Perez MD Work Phone: Start: 11-20-2022 GOLD TOP TUBE Yamini Perez MD Work Phone: Start: 11-20-2022 Hemoglobin glycosylated a1c Chris Contreras MD Work Phone: Start: 11-20-2022 End: 11-20-2022 Hepatic function panel Yamini Perez MD Work Phone: Start: 11-20-2022 LAVENDER TOP TUBE Nadeen Perez MD Work Phone: Start: 11-20-2022 LT BLUE TOP TUBE George Jeffries MD Work Phone: Start: 11-20-2022 MINT GREEN TOP TUBE Nathaniel Perez MD Work Phone: Start: 01-25-2023 RAINBOW DRAW Yamini tariq MD Work Phone: Start: 11-20-2022 Glucose measurement, blood Lizeth Wset MD Work Phone: Start: 05-01-2022 PROTHROMBIN TIME/PT [facility] Provider Start: 02-04-2022 Adult depression scr eening assessment Ender Rollins MD Work Phone: Start: 05-27-2017 End: 06-04-2017 *Hepatic Function Panel Yamini martínez PA-C Work Phone: Start: 05-27-2017 End: 06-04-2017 Lipid panel [AGGREGATE] Yamini martínez PA-C Work Phone: Start: 05-01-2017 End: 05-01-2017 BUFFING WHEEL OPERATOR Yamini Roca PA-C Work Phone: Start: 05-01-2017 End: 05-01-2017 Follow Up Appt 6 weeks Yamini disla PA-C Work Phone: Start: 11-27-2016 End: 12-06-2016 *Hepatic Function Panel Yamini martínez PA-C Work Phone: Start: 11-27-2016 End: 12-06-2016 Lipid panel [AGGREGATE] Yamini martínez PA-C Work Phone: Start: 10-30-2016 End: 10-30-2016 Follow Up Appt 6 months Carmen Alvarado Start: 10-30-2016 End: 10-30-2016 ABRIL Bower MD Start: 06-12-2016 End: 04-17-2017 *BMP Yamini Roca PA-C Work Phone: Start: 06-12-2016 End: 04-17-2017 *CBC with Differential Yamini disla PA-C Work Phone: Start: 06-12-2016 End: 06-12-2016 BUFFING WHEEL OPERATOR Yamini Roca PA-C Work Phone: Start: 06-12-2016 End: 06-12-2016 Follow Up Appt 6 months Yamini martínez PA-C Work Phone: Start: 06-12-2016 End: 04-17-2017 Thyroid stimulating hormone (TSH) Yamini Roca PA-C Work Phone: Start: 06-12-2016 End: 04-17-2017 Thyroxine (T4) Yamini Roca PA-C Work Phone: Start: 06-11-2016 End: 06-11-2016 *Hepatic Function Panel Yamini martínez PA-C Work Phone: Start: 06-11-2016 End: 06-11-2016 Lipid panel [AGGREGATE] Yamini martínez PA-C Work Phone: Start: 12-12-2015 End: 12-12-2015 Follow Up Appt 6 months Carmen Alvarado Start: 12-12-2015 End: 12-12-2015 MM Russ Bower MD Start: 11-27-2015 End: 12-08-2015 *Hepatic Function Panel Yamini martínez PA-C Work Phone: Start: 11-27-2015 End: 12-08-2015 Lipid panel [AGGREGATE] Yamini martínez PA-C Work Phone: Start: 06-05-2015 End: 06-19-2015 *Hepatic Function Panel Yamini martínez PA-C Work Phone: Start: 06-05-2015 End: 06-05-2015 BUFFING WHEEL OPERATOR Yamini Roca PA-C Work Phone: Start: 06-05-2015 End: 06-05-2015 Electrocardiogram, complete Yamini Gutierrez PA-C Work Phone: Start: 06-05-2015 End: 06-05-2015 Follow Up Appt 6 months Yamini martínez PA-C Work Phone: Start: 06-05-2015 End: 06-19-2015 Lipid panel [AGGREGATE] Yamini martínez PA-C Work Phone: Start: 06-05-2015 End: 06-06-2015 Smoking cessation education Yamini Gutierrez PA-C Work Phone: Start: 05-26-2015 End: 05-30-2016 Coagulation factor induced.INR assay in platelet poor plasma Russ Bower MD Start: 12-06-2014 End: 12-07-2014 Documentation of current medications Russ Bower MD Start: 12-06-2014 End: 12-06-2014 Follow Up Appt 6 months Carmen Alvarado Start: 12-06-2014 End: 12-06-2014 MMM Russ Bower MD Start: 05-27-2014 End: 12-06-2014 *Hepatic Function Panel Yamini martínez PA-C Work Phone: Start: 05-27-2014 End: 12-06-2014 Lipid panel [AGGREGATE] Yamini martínez PA-C Work Phone: Start: 05-24-2014 End: 05-24-2014 Coagulation factor induced.INR assay in platelet poor plasma Yamini Roca PA-C Work Phone: Start: 05-24-2014 End: 05-24-2014 BUFFING WHEEL OPERATOR Yamini Roca PA-C Work Phone: Start: 05-24-2014 End: 05-24-2014 Follow Up Appt 6 months Yamini martínez PA-C Work Phone: Start: 05-24-2014 End: 05-24-2014 Follow Up Appt Other Yamini gonzalez PA-C Work Phone: Start: 03-07-2014 End: 03-09-2014 Nuclear stress test -exercise Russ Bower MD Start: 11-27-2013 End: 12-08-2013 *Hepatic Function Panel Yamini martínez PA-C Work Phone: Start: 11-27-2013 End: 12-08-2013 Lipid panel [AGGREGATE] Yamini martínez PA-C Work Phone: Start: 11-25-2013 End: 11-25-2013 Follow Up Appt 6 months Carmen Alvarado Start: 11-25-2013 End: 11-25-2013 MMM Russ Bower MD Start: 04-26-2013 End: 05-17-2013 *Hepatic Function Panel Carmen Alvarado Start: 04-26-2013 End: 05-17-2013 Lipid panel [AGGREGATE] Carmen Alvarado Start: 04-07-2013 End: 04-07-2013 BUFFING WHEEL OPERATOR Yamini Roca PA-C Work Phone: Start: 04-07-2013 End: 04-07-2013 eRx Transmitted during this visit (Medicare only) Yamini Roca PA-C Work Phone: Start: 04-07-2013 End: 04-07-2013 Follow Up Appt 6 months Yamini martínez PA-C Work Phone: Start: 01-25-2013 End: 03-31-2013 *Hepatic Function Panel Carmen Alvarado Start: 01-25-2013 End: 03-31-2013 Lipid panel [AGGREGATE] Carmen Alvarado Start: 10-06-2012 End: 11-18-2012 *BMP Russ Bower MD Start: 10-06-2012 End: 11-18-2012 Echocardiography Russ Bower MD Start: 10-06-2012 End: 03-31-2013 Follow Up Appt 6 months Carmen Alvarado Start: 08-10-2012 End: 08-11-2012 *Hepatic Function Panel Carmen Alvarado Start: 08-10-2012 End: 08-11-2012 Lipid panel [AGGREGATE] Carmen Alvarado Start: 02-05-2012 End: 03-31-2013 Follow Up Appt 6 months Carmen Alvarado Plan of Treatment Date Care Activity Detail Author Start: 05-05-2029 Tetanus vaccination TETANUS [facility] Start: 05-13-2027 [facility] Start: 01-29-2027 [facility] Start: 04-04-2026 DIABETES SCREEN DIABETES SCREEN [facility] Start: 04-04-2026 [facility] Start: 11-20-2025 DIABETES SCREEN DIABETES SCREEN [facility] Start: 10-16-2025 DIABETES SCREEN DIABETES SCREEN [facility] Start: 05-13-2025 Annual PCP Team Adobe Cq Developer christi Disease Visit Annual PCP Team Chronic Disease Visit [facility] Start: 05-13-2025 BP Controlled (<130/80) BP Controlle d (<130/80) [facility] Start: 05-11-2025 Annual PCP Team Adobe Cq Developer christi Disease Visit Annual PCP Team Chronic Disease Visit [facility] Start: 05-11-2025 BP Controlled (<130/80) BP Controlle d (<130/80) [facility] Start: 03-30-2025 Annual PCP Team Adobe Cq Developer christi Disease Visit Annual PCP Team Chronic Disease Visit [facility] Start: 03-30-2025 BP Controlled (<130/80) BP Controlle d (<130/80) [facility] Start: 02-26-2025 Annual PCP Team Adobe Cq Developer christi Disease Visit Annual PCP Team Chronic Disease Visit [facility] Start: 02-26-2025 BP Controlled (<130/80) BP Controlle d (<130/80) [facility] Start: 02-20-2025 DIABETES SCREEN DIABETES SCREEN [facility] Start: 02-04-2025 DIABETES SCREEN DIABETES SCREEN [facility] Start: 01-29-2025 Hepatitis B surface antibody level LDL Cholesterol [facility] Start: 01-29-2025 RSV Vaccine (1 - 1-d ose 60+ series) RSV Vaccine (1 - 1-dose 60+ series) [facility] Comment on above: Postponed from 10/24 (Declined at this time) Start: 01-29-2025 RSV Vaccine (1 - 1-d ose 75+ series) RSV Vaccine (1 - 1-dose 75+ series) [facility] Comment on above: Postponed from 10/24 (Declined at this time) Start: 01-29-2025 Shingrix Vaccine (1 of 2) Ulrich grix Vaccine (1 of 2) [facility] Comment on above: Postponed from 10/24 (Declined at this time) Start: 01-29-2025 Urine microalbumin profile DTaP,Tdap,Td Vaccine (1 - Tdap) [facility] Comment on above: Postponed from 05/06 (Declined at this time) Start: 01-21-2025 End: 01-21-2025 Patient encounter procedure 01/21/2025 11:30 AM EDT Office Visit Urology [facility] [address] [place] [address] [place] [address] [place] [address] [facility] Comment on above: follow up CT Start: 01-17-2025 End: 04-18-2025 CREATININE BLD CREATININE BLD Lab Routine Other specified disorders of kidney and ureter Expected: 01/17/2025, Expires: 04/18/2025 [facility] Comment on above: Expected: 01/17/2025 , Expires: 04/18/2025 Start: 01-17-2025 End: 08-19-2025 CT Kidney WO and W contrast IV CT KIDNEY WO/W IVCON Radiology Routine Other specified disorders of kidney and ureter Expected: 01/17/2025, Expires: 08/19/2025 [facility] Work Phone: Comment on above: Expected: 01/17/2025 , Expires: 08/19/2025 Start: 01-17-2025 End: 01-17-2025 Patient encounter procedure 01/17/2025 11:20 AM EDT Appointment [facility] [address] [place], [place] [address] Other specified disorders of kidney and ureter [N28.89] [facility] Comment on above: Other specified diso rders of kidney and ureter [N28.89] Start: 07-20-2024 End: 07-20-2024 Patient encounter procedure 07/20/2024 1:00 PM EDT Office Visit Urology [facility] [address] [place] [address] [place] [address] [place] [address] CONSULT PARTIAL NEPHRECTOMY REF: [facility] Comment on above: CONSULT PARTIAL NEPH RECTOMY REF: [facility] Start: 07-09-2024 Annual PCP Team Adobe Cq Developer christi Disease Visit Annual PCP Team Chronic Disease Visit [facility] Start: 07-02-2024 End: 07-02-2024 Patient encounter procedure 07/02/2024 11:00 AM EDT Office Visit Family Padmini Gonzales [address] [place], [place] [address] Ender Rollins MD [address] [place], [place] [id number] 3 month follow up Family [facility] Gonzales Comment on above: 3 month follow up Start: 06-27-2024 Covid-19 Vaccine () Covid-19 Vaccine () [facility] Start: 06-27-2024 Influenza vaccination Influenza Vacc ine (#1) [facility] Start: 05-21-2024 End: 05-21-2024 Patient encounter procedure 05/21/2024 11:20 AM EDT Office Visit [facility] Padmini Gonzales [address] [place] [address] Ender Rollins MD [address] [facility] [place] [address] 1 week follow up [facility] Comment on above: 1 week follow up Start: 05-19-2024 End: 05-19-2024 Patient encounter procedure 05/19/2024 3:45 PM EDT Office Visit General Surgery [address] [place] [place] [address] Jae Rincon MD [address] [place] [address] Skin lesion left upper back, cellulitis, PCP referral, started pt on doxycycline, wound culture taken [facility] Comment on above: Skin lesion left upp er back, cellulitis, PCP referral, started pt on doxycycline, wound culture taken [facility] Start: 05-13-2024 End: 05-13-2024 Patient encounter procedure 05/13/2024 11:20 AM EDT Office Visit [facility] Padmini Jarrelloster [address] [place] [address] Ender Rollins MD [address] [facility] [place] [address] Wound follow up; 40 min per provider [facility] Padmini Gonzales Comment on above: Wound follow up; 40 min per provider Start: 05-11-2024 End: 08-10-2024 C reactive protein [Mass/volume] in Serum or Plasma C-REACTIVE PROTEIN Lab Routine Unintentional weight loss Expected: 05/11/2024, Expires: 08/10/2024 [facility] Comment on above: Expected: 05/11/2024 , Expires: 08/10/2024 Start: 05-11-2024 End: 08-10-2024 CBC W Auto Differential panel - Blood COMPLETE BLOOD COUNT AND DIFFERENTIAL Lab Routine Unintentional weight loss Expected: 05/11/2024, Expires: 08/10/2024 [facility] Work Phone: Comment on above: Expected: 05/11/2024 , Expires: 08/10/2024 Start: 05-11-2024 End: 08-10-2024 Comprehensive metabolic 2000 panel - Serum or Plasma COMPREHENSIVE METABOLIC PANEL Lab Routine Unintentional weight loss Expected: 05/11/2024, Expires: 08/10/2024 [facility] Comment on above: Expected: 05/11/2024 , Expires: 08/10/2024 Start: 05-11-2024 End: 08-10-2024 Erythrocyte sedimentation rate SEDIMENTATION RATE, WESTERGREN Lab Routine Unintentional weight loss Expected: 05/11/2024, Expires: 08/10/2024 [facility] Comment on above: Expected: 05/11/2024 , Expires: 08/10/2024 Start: 05-11-2024 End: 08-10-2024 Thyrotropin [Units/volume] in Serum or Plasma THYROID STIMULATING HORMONE Lab Routine Unintentional weight loss Expected: 05/11/2024, Expires: 08/10/2024 [facility] Comment on above: Expected: 05/11/2024 , Expires: 08/10/2024 Start: 05-11-2024 End: 08-10-2024 Urinalysis complete panel - Urine URINALYSIS WITH MICROSCOPIC, REFLEX CULTURE Lab Routine Unintentional weight loss Expected: 05/11/2024, Expires: 08/10/2024 [facility] Comment on above: Expected: 05/11/2024 , Expires: 08/10/2024 Start: 04-04-2024 ANNUAL PCP TEAM EHR TRAINER CHRISTI DISEASE VISIT ANNUAL PCP TEAM CHRONIC DISEASE VISIT [facility] Start: 04-04-2024 BP CONTROLLED (<130/80) BP CONTROLLE D (<130/80) [facility] Start: 03-30-2024 End: 03-30-2024 Patient encounter procedure 03/30/2024 11:00 AM EDT Office Visit [facility] [address] [place] [address] Ender Rollins MD [address] [place] [address] 4 week follow up anxiety and weight recheck [facility] Comment on above: 4 week follow up anx iety and weight recheck Start: 02-01-2024 BP CONTROLLED (<130/80) BP CONTROLLE D (<130/80) [facility] Start: 01-23-2024 ANNUAL PCP TEAM EHR TRAINER CHRISTI DISEASE VISIT ANNUAL PCP TEAM CHRONIC DISEASE VISIT [facility] Start: 01-23-2024 BP CONTROLLED (<130/80) BP CONTROLLE D (<130/80) [facility] Start: 12-10-2023 Covid-19 Vaccine () Covid-19 Vaccine () [facility] Start: 10-27-2023 Advance Directive Discussion Advance Directive Discussion [facility] Start: 10-27-2023 Depression Assessment Depression Ass essment [facility] Start: 10-16-2023 Hepatitis B surface antibody level LDL CHOLESTEROL [facility] Start: 08-21-2023 ANNUAL PCP TEAM EHR TRAINER CHRISTI DISEASE VISIT ANNUAL PCP TEAM CHRONIC DISEASE VISIT [facility] Start: 08-21-2023 BP CONTROLLED (<130/80) BP CONTROLLE D (<130/80) [facility] Start: 08-21-2023 COVID-19 VACCINE (4 - Booster for Pfizer series) COVID-19 VACCINE (4 - Booster for Pfizer series) [facility] Comment on above: Postponed from 02/28 (Declined at this time) Start: 08-21-2023 Pneumococcal Vaccine : 65+ (2 - PCV) Pneumococcal Vaccine: 65+ (2 - PCV) [facility] Comment on above: Postponed from 12/08 (Declined at this time) Start: 08-21-2023 PNEUMOCOCCAL: 65+ (2 - PCV) PNEUMOCOCCAL: 65+ (2 - PCV) [facility] Comment on above: Postponed from 12/08 (Declined at this time) Start: 04-25-2023 Influenza vaccination INFLUENZA (#1) [facility] Comment on above: Postponed from 06/27 (Declined at this time) Start: 02-19-2023 End: 11-21-2023 MR Brain WO and W contrast IV MRI BRAIN WITH AND WITHOUT CONTRAST Imaging Routine Nontraumatic intracerebral hemorrhage, unspecified cerebral location, unspecified laterality Expected: 02/19/2023, Expires: 11/21/2023 [facility] Comment on above: Expected: 02/19/2023 , Expires: 11/21/2023 Start: 02-04-2023 Adult depression screening assessment DEPRESSION SCREENING [facility] Start: 02-04-2023 ANNUAL PCP TEAM EHR TRAINER CHRISTI DISEASE VISIT ANNUAL PCP TEAM CHRONIC DISEASE VISIT [facility] Start: 02-04-2023 BP CONTROLLED (<130/80) BP CONTROLLE D (<130/80) [facility] Start: 01-29-2023 End: 01-29-2023 Telemedicine consultation with patient 01/29/2023 Telemedicine Hematology Sharita Betts PA-C [address] [place] [address] Division of Hematology & Oncology Start: 01-27-2023 End: 01-27-2023 Patient encounter procedure 01/27/2023 Office Visit Neurology Rosa Maria Gooden, MAIL DISTRIBUTION SCHEME EXAMINER-IRONWORKER [employer] [address] [place] [address] [facility] Start: 01-15-2023 End: 01-15-2023 Patient encounter procedure 01/15/2023 Appointment Magnetic Resonance Imaging Johnnie Bhandari, MAIL DISTRIBUTION SCHEME EXAMINER-IRONWORKER [employer] [address] [place], [place] [id number] [facility] Start: 01-08-2023 End: 01-08-2023 Telemedicine consultation with patient 01/08/2023 Telemedicine Hematology Sharita Betts PA-C [address] [place] [address] Division of Hematology & Oncology Start: 12-24-2022 Covid-19 Vaccine (5 - Pfizer series) Covid-19 Vaccine (5 - Pfizer series) [facility] Start: 12-24-2022 End: 12-24-2023 PROTEIN C ACTIVITY [facility] Comment on above: Expected: 12/24/2022 , Expires: 12/24/2023 Start: 12-23-2022 End: 12-23-2023 CT Pulmonary arteries for pulmonary embolus CT PE STUDY Imaging STAT History of venous thromboembolism Expected: 12/23/2022, Expires: 12/23/2023 [facility] Comment on above: Expected: 12/23/2022 , Expires: 12/23/2023 Start: 10-27-2022 ADVANCE DIRECTIVE DISCUSSION ADVANCE DIRECTIVE DISCUSSION [facility] Start: 10-27-2022 DEPRESSION ASSESSMENT DEPRESSION ASS ESSMENT [facility] Start: 08-24-2022 Hepatitis B surface antibody level LDL CHOLESTEROL [facility] Start: 08-21-2022 End: 10-21-2022 Comprehensive metabolic 2000 panel - Serum or Plasma COMP METABOLIC PANEL Lab Routine Coronary artery disease involving [place] coronary artery of [place] heart without angina pectoris Expected: 08/21/2022, Expires: 10/21/2022 [facility] Work Phone: Comment on above: Expected: 08/21/2022 , Expires: 10/21/2022 Start: 08-21-2022 End: 10-21-2022 LIPID PANEL, NONFASTING LIPID PANEL, NONFASTING Lab Routine Coronary artery disease involving [place] coronary artery of [place] heart without angina pectoris Expected: 08/21/2022, Expires: 10/21/2022 [facility] Work Phone: Comment on above: Expected: 08/21/2022 , Expires: 10/21/2022 Start: 06-27-[address] [facility] Start: 05-05-2022 COVID-19 VACCINE (4 - Booster for Pfizer series) COVID-19 VACCINE (4 - Booster for Pfizer series) [facility] Start: 02-15-2022 End: 04-17-2022 Comprehensive metabolic 2000 panel - Serum or Plasma COMP METABOLIC PANEL Lab Routine Primary hypertension Expected: 02/15/2022, Expires: 04/17/2022 [facility] Work Phone: Comment on above: Expected: 02/15/2022 , Expires: 04/17/2022 Start: 02-05-2022 End: 04-07-2022 POTASSIUM BLD POTASSIUM BLD Lab Routine Hyperkalemia Expected: 02/05/2022, Expires: 04/07/2022 [facility] Work Phone: Comment on above: Expected: 02/05/2022 , Expires: 04/07/2022 Start: 12-08-2021 Pneumococcal vaccination PNEUM OCOCCAL VACCINE SERIES (2 - PCV) [facility] Start: 12-08-2021 PNEUMOCOCCAL: 65+ (2 - PCV) PNEUMOCOCCAL: 65+ (2 - PCV) [facility] Start: 10-27-2021 ADVANCE DIRECTIVE DISCUSSION ADVANCE DIRECTIVE DISCUSSION [facility] Start: 05-06-2019 Urine microalbumin profile [facility] Start: 12-08-2017 End: 12-08-2017 Appointment Appointment [facility] Work Phone: Start: 06-06-2017 End: 06-06-2017 Appointment Appointment [facility] Work Phone: Start: 06-06-2017 End: 06-06-2017 Follow Up Appt 6 months Follow Up Appt 6 months [facility] Work Phone: Start: 06-06-2017 End: 06-06-2017 MMM MMM [facility] Work Phone: Start: 06-05-2017 End: 12-11-2016 *Hepatic Function Panel *Hepatic Function Panel [facility] Work Phone: Start: 06-05-2017 End: 12-11-2016 Lipid panel [AGGREGATE] *Lipid Profile CC PCP [facility] Work Phone: Start: 05-27-2017 End: 06-04-2017 *Hepatic Function Panel *Hepatic Function Panel [facility] Work Phone: Start: 05-27-2017 End: 06-04-2017 Lipid panel [AGGREGATE] *Lipid Profile CC PCP [facility] Work Phone: Start: 05-01-2017 End: 05-01-2017 Appointment Appointment [facility] Work Phone: Start: 05-01-2017 End: 05-01-2017 BUFFING WHEEL OPERATOR BUFFING WHEEL OPERATOR [facility] Work Phone: Start: 05-01-2017 End: 05-01-2017 Fibrin D-dimer FEU *DDIMQ - Fibrin Degrd Ultrsens Qual/[place] [facility] Work Phone: Start: 05-01-2017 End: 05-01-2017 Fibrin D-dimer FEU mass conc (PPP) *DDIMQ - Fibrin Degrd Ultrsens Qual/[place]iquan [facility] Work Phone: Start: 05-01-2017 End: 05-01-2017 Follow Up Appt 6 weeks Follow Up Appt 6 weeks [facility] Work Phone: Start: 11-27-2016 End: 12-06-2016 *Hepatic Function Panel *Hepatic Function Panel [facility] Work Phone: Start: 11-27-2016 End: 12-06-2016 Lipid panel [AGGREGATE] *Lipid Profile CC PCP [facility] Work Phone: Start: 10-30-2016 End: 10-30-2016 Follow Up Appt 6 months Follow Up Appt 6 months [facility] Work Phone: Start: 10-30-2016 End: 10-30-2016 MMM MMM [facility] Work Phone: Start: 06-12-2016 End: 04-17-2017 *BMP *BMP [facility] Work Phone: Start: 06-12-2016 End: 04-17-2017 *CBC with Differential *CBC with Differential [facility] Work Phone: Start: 06-12-2016 End: 06-12-2016 BUFFING WHEEL OPERATOR BUFFING WHEEL OPERATOR [facility] Work Phone: Start: 06-12-2016 End: 06-12-2016 Follow Up Appt 6 months Follow Up Appt 6 months [facility] Work Phone: Start: 06-12-2016 End: 04-17-2017 Thyroid stimulating hormone (TSH) *TSH [facility] Work Phone: Start: 06-12-2016 End: 04-17-2017 Thyroxine (T4) *T4 (Total) [facility] Work Phone: Start: 06-11-2016 End: 06-11-2016 *Hepatic Function Panel *Hepatic Function Panel [facility] Work Phone: Start: 06-11-2016 End: 06-11-2016 Lipid panel [AGGREGATE] *Lipid Profile CC PCP [facility] Work Phone: Start: 12-12-2015 End: 12-12-2015 Follow Up Appt 6 months Follow Up Appt 6 months [facility] Work Phone: Start: 12-12-2015 End: 12-12-2015 MMM MMM [facility] Work Phone: Start: 11-27-2015 End: 12-08-2015 *Hepatic Function Panel *Hepatic Function Panel [facility] Work Phone: Start: 11-27-2015 End: 12-08-2015 Lipid panel [AGGREGATE] *Lipid Profile CC PCP [facility] Work Phone: Start: 06-05-2015 End: 06-19-2015 *Hepatic Function Panel *Hepatic Function Panel [facility] Work Phone: Start: 06-05-2015 End: 06-05-2015 BUFFING WHEEL OPERATOR BUFFING WHEEL OPERATOR [facility] Work Phone: Start: 06-05-2015 End: 06-05-2015 Electrocardiogram, complete EKG (In office) [facility] Work Phone: Start: 06-05-2015 End: 06-05-2015 Follow Up Appt 6 months Follow Up Appt 6 months [facility] Work Phone: Start: 06-05-2015 End: 06-19-2015 Lipid panel [AGGREGATE] *Lipid Profile CC PCP [facility] Work Phone: Start: 05-26-2015 End: 05-30-2016 Coagulation factor induced.INR assay in platelet poor plasma *PT/INR - Standing Order [facility] Work Phone: Start: 12-06-2014 End: 12-06-2014 Follow Up Appt 6 months Follow Up Appt 6 months [facility] Work Phone: Start: 12-06-2014 End: 12-06-2014 MMM MMM [facility] Work Phone: Start: 05-27-2014 End: 12-06-2014 *Hepatic Function Panel *Hepatic Function Panel [facility] Work Phone: Start: 05-27-2014 End: 12-06-2014 Lipid panel [AGGREGATE] *Lipid Profile CC PCP [facility] Work Phone: Start: 05-24-2014 End: 05-24-2014 Coagulation factor induced.INR assay in platelet poor plasma *PT/INR - Standing Order [facility] Work Phone: Start: 05-24-2014 End: 05-24-2014 BUFFING WHEEL OPERATOR BUFFING WHEEL OPERATOR [facility] Work Phone: Start: 05-24-2014 End: 05-24-2014 Follow Up Appt 6 months Follow Up Appt 6 months [facility] Work Phone: Start: 05-24-2014 End: 05-24-2014 Follow Up Appt Other Follow Up Appt Other [facility] Work Phone: Start: 03-07-2014 End: 03-07-2014 Nuclear stress test -exercise Nuclear stress test -exercise [facility] Work Phone: Start: 11-27-2013 End: 12-08-2013 *Hepatic Function Panel *Hepatic Function Panel [facility] Work Phone: Start: 11-27-2013 End: 12-08-2013 Lipid panel [AGGREGATE] *Lipid Profile CC PCP [facility] Work Phone: Start: 11-25-2013 End: 11-25-2013 Follow Up Appt 6 months Follow Up Appt 6 months [facility] Work Phone: Start: 11-25-2013 End: 11-25-2013 MMM MMM [facility] Work Phone: Start: 04-26-2013 End: 05-17-2013 *Hepatic Function Panel *Hepatic Function Panel [facility] Work Phone: Start: 04-26-2013 End: 05-17-2013 Lipid panel [AGGREGATE] *Lipid Profile [facility] Work Phone: Start: 04-07-2013 End: 04-07-2013 BUFFING WHEEL OPERATOR BUFFING WHEEL OPERATOR [facility] Work Phone: Start: 04-07-2013 End: 04-07-2013 Follow Up Appt 6 months Follow Up Appt 6 months [facility] Work Phone: Start: 01-25-2013 End: 03-31-2013 *Hepatic Function Panel *Hepatic Function Panel [facility] Work Phone: Start: 01-25-2013 End: 03-31-2013 Lipid panel [AGGREGATE] *Lipid Profile [facility] Work Phone: Start: 10-06-2012 End: 11-18-2012 *BMP *BMP [facility] Work Phone: Start: 10-06-2012 End: 10-07-2012 Echocardiography Echocardiogram (complete) [facility] Work Phone: Start: 10-06-2012 End: 03-31-2013 Follow Up Appt 6 months Follow Up Appt 6 months [facility] Work Phone: Start: 08-10-2012 End: 08-11-2012 *Hepatic Function Panel *Hepatic Function Panel [facility] Work Phone: Start: 08-10-2012 End: 08-11-2012 Lipid panel [AGGREGATE] *Lipid Profile [facility] Work Phone: Start: 02-05-2012 End: 03-31-2013 Follow Up Appt 6 months Follow Up Appt 6 months [facility] Work Phone: Start: 2003 RSV Vaccine (1 - 1-d ose 60+ series) RSV Vaccine (1 - 1-dose 60+ series) [facility] Start: 1993 SHINGRIX VACCINE (1 of 2) ULRICH GRIX VACCINE (1 of 2) [facility] Start: 1993 Zoster vaccine hzv l des for subcutaneous use ZOSTER (SHINGLES) VACCINE (1 of 2) [facility] Start: 1988 Screening for malign ant neoplasm of colon COLORECTAL CANCER SCREENING DISCUSSION [facility] Start: 1962 Third diphtheria, te tanus and acellular pertussis (DTaP) vaccination TDAP (ADULT) [facility] Start: 1961 BP Controlled (<130/80) BP Controlle d (<130/80) [facility] Start: 1943 Hepatitis C screening HEPATITI S C VIRUS SCREENING [facility] Bacteria identified in Wound by Culture ABSCESS AND WOUND CULTURE WITH GRAM STAIN Microbiology Routine Cellulitis of skin Skin lesion 05/13/2024 11:49 AM EDT [facility] Work Phone: BLADDER SCAN BLADDER SCAN Pro cedures Routine Urine retention Ordered: 01/24/2023 [facility] Work Phone: Comment on above: Ordered: 01/24/2023 BLADDER SCAN BLADDER SCAN Pro cedures Routine BPH with obstruction/lower urinary tract symptoms Ordered: 04/25/2023 [facility] Work Phone: Comment on above: Ordered: 04/25/2023 FACTOR V & PROTHROMB IN ANALYSIS, FINAL FACTOR V & PROTHROMBIN ANALYSIS, FINAL Lab Routine History of venous thromboembolism 12/23/2022 12:14 PM [facility] FACTOR V LEIDEN, CELY A ENTRY FACTOR V LEIDEN, CALCULATING MACHINE MECHANIC Lab Routine History of venous thromboembolism 12/23/2022 12:14 PM [facility] Patient Education [facility] Work Phone: PROTHROMBIN VARIANT, CALCULATING MACHINE MECHANIC PROTHROMBIN VARIANT, CALCULATING MACHINE MECHANIC Lab Routine History of venous thromboembolism 12/23/2022 12:14 PM [facility] End: 02-14-2023 PT panel - Platelet poor plasma by Coagulation assay PROTHROMBIN TIME/PT Lab Routine Acute deep vein thrombosis (DVT) of proximal vein of lower extremity, unspecified laterality (HCC) Once per month for 99 Occurrences starting 02/14/2022 until 02/14/2023 [facility] Work Phone: Comment on above: Once per month for 9 9 Occurrences starting 02/14/2022 until 02/14/2023 PT panel - Platelet poor plasma by Coagulation assay PROTHROMBIN TIME/PT Lab Routine Acute deep vein thrombosis (DVT) of proximal vein of lower extremity, unspecified laterality (HCC) 02/14/2022 12:26 PM EDT [facility] Work Phone: End: 02-21-2024 SPIROMETRY - BASELINE AND POST DILATOR SPIROMETRY - BASELINE AND POST DILATOR PFT Routine Cough in adult patient 1 Occurrences starting 01/22/2023 until 02/21/2024 [facility] Work Phone: Comment on above: 1 Occurrences starti ng 01/22/2023 until 02/21/2024 End: 04-29-2025 XR Chest PA and Lateral XR CHEST 2V FRONTAL/LAT Radiology Routine Weight loss 1 Occurrences starting 03/30/2024 until 04/29/2025 [facility] Work Phone: Comment on above: 1 Occurrences starti ng 03/30/2024 until 04/29/2025 XR Chest PA and Lateral XR CHEST 2V FRONTAL/LAT Radiology Routine Weight loss 03/30/2024 11:[address] [facility] Immunizations Immunization Date Immunization Notes Care Provider [facility] 03-30-2024 COVID-19 vaccine, ag e 12+ yr, 2022- season (PFIZER-FlexuspineNTNoknoker) Ender Rollins MD Work Phone: [facility] 07-09-2023 influenza (HD-IIV4) vaccine, age 65+ yr, high dose, quadrivalent, PF (FLUZONE HIGH-DOSE) Shantel Chadwick MAIL DISTRIBUTION SCHEME EXAMINER.[employer]WORK[employer] Work Phone: [facility] 07-09-2023 influenza virus vaccine, unspecified formulation Ender Rollins MD Work Phone: [facility] 08-23-2022 Influenza, High-dose Seasonal, Quadrivalent, Preservative Free Lizeth West MD Work Phone: [facility] 12-08-2020 pneumococcal polysaccharide vaccine, 23 valent Ender Rollins MD Work Phone: [facility] 08-25-2019 influenza, high dose seasonal, preservative-free Ender Rollins MD Work Phone: [facility] 05-05-2019 tetanus and diphther ia toxoids, adsorbed, preservative free, for adult use (5 Lf of tetanus toxoid and 2 Lf of diphtheria toxoid) Ender Rollins MD Work Phone: [facility] 06-26-2017 influenza, high dose seasonal, preservative-free Lizeth West MD Work Phone: [facility] 10-15-2013 tetanus and diphther ia toxoids, adsorbed, preservative free, for adult use (5 Lf of tetanus toxoid and 2 Lf of diphtheria toxoid) Ender Rollins MD Work Phone: [facility] 10-07-2013 tetanus and diphther ia toxoids, adsorbed, preservative free, for adult use (5 Lf of tetanus toxoid and 2 Lf of diphtheria toxoid) Ender Rollins MD Work Phone: [facility] 10-10-2009 novel [id number], preservative-free, injectable Lizeth West MD Work Phone: [facility] Payers Date Payer Category Payer Unknown MMO MMO MEDICARE SUPPLEMENT [id number] 2019-Present [phone] [address] [place] [address] Indemnity [id number] 2015 Medicare [id number] 2015 Unknown [id number] 2008 Medicare MEDICARE MEDICAR E A AND B [id number] 2008-Present [phone] [address] [address] [place] [address] Medicare [id number] 2007 Medicare [id number] 2007 Medicare [id number] 1945 Unknown [id number] 1945 Unknown [id number] 1943 Unknown [id number] 1943 Unknown [id number] 1945 Unknown [id number] Social History Date Type Detail Facility Start: 02-03-1961 End: 07-20-2024 Tobacco smoking status MSIS Smokes tobacco daily [facility] Start: [birth year]-03-1961 End: 02-03-2019 History of tobacco use Smoker [facility] Start: 02-04-2022 End: 07-20-2024 Tobacco use and exposure Smokeless tobacco non-user [facility] Start: 02-05-2022 End: 07-20-2024 Alcohol intake Current drinker of alcohol (finding) [facility] Start: 02-05-2022 End: 04-04-2023 Alcohol intake [facility] Start: 02-25-2019 End: 11-05-2019 History SDOH Alcohol Frequency 1 [facility] Start: 02-25-2019 History SDOH Social Connections Phone 5 [facility] Start: 02-25-2019 History SDOH Social Connections Living 3 [facility] Start: 02-25-2019 History SDOH Stress 2 [facility] Start: 1945 Sex Assigned At Not on file [facility] Start: 01-25-2022 End: 12-23-2022 Exposure to SARS-CoV-2 (event) Not sure [facility] Start: 02-02-2019 End: 01-07-2023 Tobacco smoking status NHIS Ex-smoker [facility] Work Phone: End: 02-03-2019 History of tobacco use Pipe Smoker [facility] Work Phone: Start: 02-03-1961 End: 02-03-2019 History of tobacco use Cigarette Smoker [facility] Start: 02-25-2019 End: 04-04-2023 Social connection and isolation panel [facility] Attends [employer] Not on file [facility] Work Phone: Are you now , , , , never or living with a partner? [facility] How often to you hav e a drink containing alcohol? Never [facility] Do you feel stress - tense, restless, nervous, or anxious, or unable to sleep at night because your mind is troubled all the time - these days [OSQ] Only a little [facility] (I/We) worried wheth er (my/our) food would run out before (I/we) got money to buy more. Never true [facility] Goals Date Patient Goal Desired Activity /State Personal health goal Clinical Notes 01-05-2019 to 07-20-2024 Darren Moran MD - 07/20/2024 1:00 PM EDTTelephone Encounter - Madeline Jimenez MA - 05/17/2024 10:07 AM EDTTelephone Encounter - Madeline Jimenez MA - 05/17/2024 10:07 AM EDTPatient Instructions Note Date & Type Note Facility 07-20-2024 History of Present illness Narrative [facility] HISTORY AND PHYSICAL EXAM PATIENT INFO: Juli Shook CHIEF COMPLAINT: renal mass HPI Juli Shook is a 78 year old male with multiple co morbidities including hx of CAD, HTN, COPD, 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 Patient present with his son Patient recently had imaging done for evaluation of worsening confusion, abdominal discomfort and weight lost in outside facility. Per CT chest/abdomen/Pelvis report, it showed a 3 cm right lower pole renal mass with no concerns for metastasis. Patient currently denies flank pain. No gross hematuria, no fever or chills. LABS: Creatinine Date Value Ref Range Status 05/13/2024 1.09 0.73 - 1.22 mg/dL Final 01/30/2024 1.06 0.73 - 1.22 mg/dL Final 04/04/2023 1.09 0.73 - 1.22 mg/dL Final 10/16/2022 1.14 0.73 - 1.22 mg/dL Final No results found for: PSA URINALYSIS: Specific Fouke, Ur Date Value Ref Range Status 05/13/2024 1.019 1.005 - 1.030 Final Glucose, Urine Date Value Ref Range Status 05/13/2024 Negative Negative Final Bilirubin, Urine Date Value Ref Range Status 05/13/2024 Negative Negative Final Ketones, Urine Date Value Ref Range Status 05/13/2024 Negative Negative Final Hemoglobin/Blood,Ur Date Value Ref Range Status 05/13/2024 Negative Negative Final Protein, Urine Date Value Ref Range Status 05/13/2024 Trace (A) Negative Final Urobilinogen, Urine Date Value Ref Range Status 01/06/2019 1.0 0.0 - 1.0 EU/dL Final Nitrites Date Value Ref Range Status 05/13/2024 Negative Negative Final WBC, Urine Date Value Ref Range Status 05/13/2024 0-5 /HPF 0-5 /HPF Final No results found for this basename: uglucpoc,ubilipoc,uketonpoc,usgpoc ,uhbpoc,uphpoc,upropoc,uuropoc,uni tpoc,uwbcpoc,ucolpoc,uclarpoc IMAGING: [facility] Services [address] [place] [address] CT Chest, Abd, Pel w/Contrast MR#: [id number] Acct: [id number] Name: JULI SHOOK Rep #: [id number] : 1945 M 78 From: Javid gotti MD PCP: Dr. Gio Harman MD Status: [facility] Study: CT Chest, Abd, Pel w/Contrast Date of Exam: Exam# [id number] Ordering [place]: [place] [id number] STUDY: CT CHEST, ABDOMEN T PELVIS WITH CONTRAST REASON FOR EXAM: Male, 78 years old. COPD, WEIGHT LOSS RADIATION DOSAGE (If Supplied By Facility): CTDIvol = ( 9.18 ) mGy, DLP = ( 592.86 ) mGycm TECHNIQUE: Transaxial imaging was performed following intravenous administration of Oral and amp; IV Gastrografin and amp; 75mL Isovue-300. Multiplanar coronal and sagittal images were reformatted. Individualized dose optimization techniques were used for this CT. COMPARISON: Prior study dated: Chest CT performed 10/28/2017 _ FINDINGS: CHEST Lungs/pleura: The central airways are patent. Moderate centrilobular and paraseptal emphysema. There is no consolidation. No pulmonary nodules are identified. There is no demonstrated pleural abnormality. No pneumothorax. Mediastinum: Normal heart size. No pericardial effusion. Coronary artery calcifications are seen. Normal mediastinum. Normal hilar regions. Normal central and segmental pulmonary arteries. Normal aorta arch and descending thoracic aorta. Chest wall: No axillary lymphadenopathy or chest wall mass. ABDOMEN/PELVIS Liver/gallbladder/biliary tree: The liver is normal in size, shape, and attenuation. No biliary ductal dilatation. There is a 6.6 cm mass in segment 5 of the liver which shows early peripheral nodular enhancement and progressive filling in of enhancement, consistent with a hemangioma. Multiple hepatic cysts are also seen. No suspicious mass. Normal gallbladder and extrahepatic biliary system. Pancreas: Normal pancreas. Spleen: Normal in size. No splenic lesion. Adrenal glands: Normal bilateral adrenal glands. Kidneys: Normal size and positioning of the kidneys without hydronephrosis or nephrolithiasis. There are multiple bilateral simple cysts. Additionally there is a mass at the lower pole of the right kidney measuring 3 cm. This has mixed attenuation, but is mostly solid. This is not in the [id number] of prior chest CT . GI tract: Normal visualized stomach. Normal small intestine. No colonic wall thickening or inflammation. Stool distends the rectum. The appendix is visualized and appears normal. Lymphovascular: Normal caliber aorta with moderate atherosclerotic calcifications. There is an IVC filter in place. Normal retroperitoneum. No retroperitoneal or mesenteric lymphadenopathy. Abdominal wall: Normal abdominal wall. Bladder: Normal urinary bladder. Pelvic viscera: There is no pelvic fluid. There is no pelvic lymphadenopathy or mass lesion. OSSEOUS STRUCTURES No acute or suspicious osseous abnormality. Mild degenerative changes throughout the spine. Chronic midthoracic vertebral body compression deformities. Mild height loss of the T3 vertebral body is new from 2018. There is approximately 20% loss of vertebral body height. _ CT/CT Chest, Abd, Pel w/Contrast IMPRESSION: 1. Right lower pole 3 cm renal mass. This is concerning for neoplasm. 2. No lymphadenopathy. 3. Moderate emphysema. Pulmonary emphysema is an independent risk factor for lung cancer. Consider patient for low-dose chest CT lung cancer screening in the future. 4. IVC filter present. Recommend assessment if there is a management plan in place for the filter. If there is no plan in place, suggest referral to interventional clinician on a nonemergent basis for evaluation. 5. Hepatic hemangioma noted. No suspicious liver mass. 6. Mild height loss of the T3 vertebral body, uncertain chronicity but new since 2018. Electronically Signed: Javid Crowley MD at 10:07 EDT , ALLERGIES: ALLERGIES Allergen Reactions Sulfa (Sulfonamide * Swelling Heparin Other: See Comments Patient states no reactions. Integrilin [Eptifib* Other: See Comments Patient states no reaction. MEDICATIONS: Current Outpatient Medications Medication Sig Mirtazapine (REMERON) 7.5 mg tablet Take 7.5 mg by mouth daily at bedtime. FLUoxetine (PROZAC) 20 mg capsule Take 1 capsule by mouth once daily. donepezil (ARICEPT) 5 mg tablet Take 5 mg by mouth daily at bedtime. busPIRone (BUSPAR) 5 mg tablet Take 2 tablets by mouth once daily. amLODIPine (NORVASC) 5 mg tablet Take 1 tablet by mouth once daily. doxazosin (CARDURA) 1 mg tablet Take 1 tablet by mouth daily at bedtime. carvedilol (COREG) 12.5 mg tablet Take 1 tablet by mouth two times a day with meals. lisinopril (ZESTRIL) 40 mg tablet Take 1 tablet by mouth once daily. atorvastatin (LIPITOR) 40 mg tablet Take 1 tablet by mouth daily at bedtime. apixaban (ELIQUIS) 2.5 mg tab(s) Take 1 tablet by mouth two times a day. fluticasone-vilanterol (BREO ELLIPTA) 100-25 mcg/dose inhaler Inhale 1 Inhalation as instructed once daily. albuterol HFA (VENTOLIN HFA) 90 mcg/actuation inhaler Inhale 2 Puffs as instructed every 4 hours as needed for wheezing/shortness of breath. Cholecalciferol, Vitamin D3, 125 mcg (5,000 unit) cap Take 5,000 Units by mouth once daily. iv contrast (will be provided with radiology test) CT kidney wow Inject, intravenously, once for 1 dose.No IV access, insert saline lock prior to the beginning of sedation, infusion, injection of imaging exam. Discontinue saline lock post exam. If Pt. has a central line or IVAD, may access for administration according to line specific nursing protocol. Once exam is complete flush line and de-access according to line specific nursing protocol in the CT contrast administration guidelines link. No current facility-administered medications for this visit. HISTORIES PAST MEDICAL HISTORY Diagnosis Date Alzheimer's dementia ([facility]) Colon polyps Dr. Avalos COPD (chronic obstructive pulmonary disease) ([facility]) 01/27/2023 moderately severe Coronary artery disease Dr. Bower DVT (deep venous thrombosis) ([facility]) multiple Dyslipidemia Factor V Leiden ([facility]) def Generalized anxiety disorder Hypercoagulable state (HCC) possible factor V homozygous Hypertension Intracranial aneurysm Intracranial hemorrhage (HCC) 2015, 12/2018 Dr. Daniel Memory impairment Dr. Leong Pulmonary embolism (HCC) S/P IVC filter 2016 Skin lesion of back left upper back Thyroid nodule 12/20/2022 US at [facility] showed 2.7 cm nodule on right lobe PAST SURGICAL HISTORY Procedure Laterality Date COLONOSCOPY Last done age 69 or 70 with polyps. told he would not need follow up IVC FILTER PLACEMENT/REMOVAL 2016 STENT 1999, 2001 Cardiac x2 THORACENTESIS 2003 TONSILLECTOMY AND ADENOIDECTOMY HX childhood Social History Tobacco Use Smoking status: Every Day Current packs/day: 0.00 Types: Cigarettes Start date: 02/03/1959 Last attempt to quit: 02/03/2019 Years since quittin.4 Smokeless tobacco: Never Vaping Use Vaping status: Never Used Substance Use Topics Alcohol use: Yes Alcohol/week: 7.0 standard drinks of alcohol Types: 7 Cans of Beer (12oz) per week Drug use: Never REVIEW OF SYSTEMS General: No weight loss, malaise or fevers., SEE HPI Genitourinary: No history of dysuria, frequency or incontinence The remainder of the ROS was reviewed and was negative. PHYSICAL EXAMINATION BP 143/82 (BP Site: Right Arm, BP Position: Sitting, BP Cuff Size: Small Adult) Pulse 67 Temp 36.7 C (98.1 F) (Temporal) Ht 179 cm (5' 10.47 ) Wt 59.1 kg (130 lb 4.7 oz) BMI 18.45 kg/m General: No acute distress Genitourinary: deferred Abdomen: not distended, non tender PROBLEMS: 1. Other specified disorders of kidney and ureter - ICD9: 593.89, ICD10: N28.89 (primary diagnosis) 2. 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 I discussed the etiology and natural history of renal neoplasms and reviewed likelihood of malignant pathology based on size criteria using data from large surgical series. I explained the role of staging scans to evaluate for metastatic disease. I described the selected role of percutaneous renal mass biopsy, which is reserved for instances in which biopsy results will change management administrator, while explaining the risks and limitations of renal mass biopsy. I do nt recommend biopsy in this case as I do believe it will likely change management administrator. We discussed management options for clinically-localized renal neoplasms including partial or radical nephrectomy, active surveillance, or percutaneous ablation. I discussed the risks and benefits of each approach. I discussed the risks and benefits of partial nephrectomy, specifically discussing risks of hemorrhage and urine leak with partial nephrectomy, risk of conversion to radical nephrectomy, risk of infection, injury to adjacent organ, risk of VTE, and risk of cardiopulmonary complication including MT, CVA, or respiratory failure. I reviewed the risks of CKD after surgery and explained the benefit of nephron-sparing surgery when feasible in renal functional preservation. With respect to active surveillance, I reviewed the risks and benefits of this approach. I reviewed the likelihood of interval growth on surveillance and the low but non-zero risk of disease progression based on data from large surveillance series. I reviewed the need for serial imaging and common triggers for progression to treatment, namely interval growth. I reviewed the likelihood of ultimately progressing to treatment based on data from large surveillance series. We also discussed based on large data the risk of metastasis from small renal mass <4 cm is about 1-2% and is very rare to develop metastasis for a renal mass < 3 cm. We also discussed that ht majority of small renal mass if malignant are usually low grade in nature (70-80%). With repsect to percutaneous ablation, I discussed outcomes from large observational studies and reviewed optimal clinical characteristics for this management approach. I also discussed outcomes in patients with recurrence after ablation undergoing surgery, with a nephron-sparing surgical approach less feasible in the post-ablation setting based on a series published from our institution. He had opportunity to ask questions which were answered to his satisfaction. Patient elected for active surveillance. Plan: Return visit in 3-[address] kidney for active surveillance monitoring (patient going to [place] for the winter and would likely schedule repeat imaging in December) Darren Moran MD Associate Staff, Department of Urology [facility] Decision Making: Problems: Moderate: New problem with uncertain prognosis Data: Unique test result(s) reviewed: 2 Unique test(s) ordered: 2 Risk: Minimal: Minimal risk from testing/treatment Medical Decision Making Level: 4 - Moderate documented in this encounter [facility] 07-20-2024 Note HNO ID: [id number] Author: DARREN MORAN MD Service: ? 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 Patient present with his son Patient recently had imaging done for evaluation of worsening confusion, abdominal discomfort and weight lost in outside facility. Per CT chest/abdomen/Pelvis report, it showed a 3 cm right lower pole renal mass with no concerns for metastasis. Patient currently denies flank pain. No gross hematuria, no fever or chills. LABS: Creatinine Date Value Ref Range Status 05/13/2024 1.09 0.73 - 1.22 mg/dL Final 01/30/2024 1.06 0.73 - 1.22 mg/dL Final 04/04/2023 1.09 0.73 - 1.22 mg/dL Final 10/16/2022 1.14 0.73 - 1.22 mg/dL Final No results found for: PSA URINALYSIS: Specific Fouke, Ur Date Value Ref Range Status 05/13/2024 1.019 1.005 - 1.030 Final Glucose, Urine Date Value Ref Range Status 05/13/2024 Negative Negative Final Bilirubin, Urine Date Value Ref Range Status 05/13/2024 Negative Negative Final Ketones, Urine Date Value Ref Range Status 05/13/2024 Negative Negative Final Hemoglobin/Blood,Ur Date Value Ref Range Status 05/13/2024 Negative Negative Final Protein, Urine Date Value Ref Range Status 05/13/2024 Trace (A) Negative Final Urobilinogen, Urine Date Value Ref Range Status 01/06/2019 1.0 0.0 - 1.0 EU/dL Final Nitrites Date Value Ref Range Status 05/13/2024 Negative Negative Final WBC, Urine Date Value Ref Range Status 05/13/2024 0-5 /HPF 0-5 /HPF Final No results found for this basename: uglucpoc,ubilipoc,uketonpoc,usgpoc ,uhbpoc,uphpoc,upropoc,uuropoc,uni tpoc,uwbcpoc ,ucolpoc,uclarpoc IMAGING: [facility] Imaging Services [address] [place] [place], [place] [id number] CT Chest, Abd, Pel w/Contrast MR#: [id number] Acct: [id number] Name: JULI SHOOK Rep #: [id number] : 1945 M 78 From: Javid gotti MD PCP: Dr. Gio Harman MD Status: REG CLI Study: CT Chest, Abd, Pel w/Contrast Date of Exam: Exam# [id number] Ordering [place]: [place] [id number] STUDY: CT CHEST, ABDOMEN T PELVIS WITH CONTRAST REASON FOR EXAM: Male, 78 years old. COPD, WEIGHT LOSS RADIATION DOSAGE (If Supplied By Facility): CTDIvol = ( 9.18 ) mGy, DLP = ( 592.86 ) mGycm TECHNIQUE: Transaxial imaging was performed following intravenous administration of Oral and amp; IV Gastrografin and amp; 75mL Isovue-300. Multiplanar coronal and sagittal images were reformatted. Individualized dose optimization techniques were used for this CT. COMPARISON: Prior study dated: Chest CT performed 10/28/2017 _ FINDINGS: CHEST Lungs/pleura: The central airways are patent. Moderate centrilobular and paraseptal emphysema. There is no consolidation. No pulmonary nodules are identified. There is no demonstrated pleural abnormality. No pneumothorax. Mediastinum: Normal heart size. No pericardial effusion. Coronary artery calcifications are seen. Normal mediastinum. Normal hilar regions. Normal central and segmental pulmonary arteries. Normal aorta arch and descending thoracic aorta. Chest wall: No axillary lymphadenopathy or chest wall mass. ABDOMEN/PELVIS Liver/gallbladder/biliary tree: The liver is normal in size, shape, and attenuation. No biliary ductal dilatation. There is a 6.6 cm mass in segment 5 of the liver which shows early peripheral nodular enhancement and progressive filling in of enhancement, consistent with a hemangioma. Multiple hepatic cysts are also seen. No suspicious mass. Normal gallbladder and extrahepatic biliary system. Pancreas: Normal pancreas. Spleen: Normal in size. No splenic lesion. Adrenal glands: Normal bilateral adrenal glands. Kidneys: Normal size and positioning of the kidneys without hydronephrosis or nephrolithiasis. There are multiple bilateral simple cysts. Additionally there is a mass at the lower pole of the right kidney measuring 3 cm. This has mixed attenuation, but is mostly solid. This is not in the [id number]-[id number] of prior chest CT . GI tract: Normal visualized stomach. Normal small intestine. No colonic wall thickening or inflammation. Stool distends the rectum. The appendix is visualized and appears normal. Lymphovascular: Normal caliber aorta with moderate atherosclerotic calcifications. There is an IVC filter in place. Normal retroperitoneum. No retroperitoneal or mesenteric lymphadenopathy. Abdominal wall: Normal (more content not included)... [facility] 05-17-2024 Telephone encounter Note Pt son notified. He is scheduled with [facility] tomorrow and depending what they say they might cancel the gen surgery appt. Madeline Jimenez MA [facility] 05-17-2024 Miscellaneous Notes Pt son notified. He is scheduled with [facility] tomorrow and depending what they say they might cancel the gen surgery appt. Madeline Jimenez MA ----- Message from Ender Rollins MD sent at 05/17/2024 7:03 AM EDT ----- Wound culture swab did not identify and infection outside of normal skin bacteria. Continue treatment as discussed. documented in this encounter [facility] 05-17-2024 Telephone encounter Note ----- Message from Ender Rollins MD sent at 05/17/2024 7:03 AM EDT ----- Wound culture swab did not identify and infection outside of normal skin bacteria. Continue treatment as discussed. [facility] 05-13-2024 Instructions Ender Rollins MD - 05/13/2024 11:51 AM EDT Please change his dressing on his upper back on a daily basis. Call if he has spreading redness outside of the marked off area or go to the ER with fever/chills, streaking, and worsening redness. Please schedule appointment with general surgery next week before you leave. documented in this encounter [facility] 05-13-2024 Note HNO ID: [id number] Author: ENDER ROLLINS MD Service: ? Author Type: Physician Type: Progress Notes Filed: 05/13/2024 12:17 Note Text: Chief Complaint Patient presents with: Recheck: wound HPI Juli Shook is a 78 year old male who presents here today for to recheck cellulitis and skin lesion on left upper back. Recheck weight, BP and HR as well. Accompanied today by his son Jayjay who is providing history for patient with Alzheimer's. Son is first alternate on his healthcare POA. Since last OV, patient has been taking abx without side effects. They have not checked his wound or changed his dressing, so they are unsure if it is better or worse. Denies fever/chills, nausea, vomiting, diarrhea since starting abx. He has not yet called to schedule OV for general surgery for biopsy vs excision. BP improved today. Taking all medications as prescribed. They are continuing to encourage patient to eat 3 meals per day. Labs ordered at OV 2 days ago were drawn today and are still pending. Weight stable in the last 2 days. Requesting refill on his Prozac. Past medical history, appointments, medications, allergies reviewed. Previous Medical History PAST MEDICAL HISTORY Diagnosis Date Alzheimer's dementia (HCC) Colon polyps Dr. Avalos COPD (chronic obstructive pulmonary disease) (HCC) 01/27/2023 moderately severe Coronary artery disease Dr. Bower DVT (deep venous thrombosis) (HCC) multiple Dyslipidemia Factor V Leiden (HCC) def Generalized anxiety disorder Hypercoagulable state (HCC) possible factor V homozygous Hypertension Intracranial aneurysm Intracranial hemorrhage (HCC) 2015, 12/2018 Dr. Daniel Memory impairment Dr. Leong Pulmonary embolism ([facility]) S/P IVC filter 2015 Thyroid nodule 12/20/2022 US at [facility] showed 2.7 cm nodule on right lobe Previous Surgical History PAST SURGICAL HISTORY Procedure Laterality Date COLONOSCOPY Last done age 69 or 70 with polyps. told he would not need follow up IVC FILTER PLACEMENT/REMOVAL 2015 STENT 1999, 2001 Cardiac x2 THORACENTESIS 2003 TONSILLECTOMY AND ADENOIDECTOMY HX childhood Family History FAMILY HISTORY Problem Relation Age of Onset Hypertension Father other (hypercoagulable state) Father other (hypercoagulable state) Other other (hypercoagulable state) Grandchild Thyroid Daughter other (factor v) Son Patient Allergies ALLERGIES Allergen Reactions Sulfa (Sulfonamide * Swelling Heparin Other: See Comments Patient states no reactions. Integrilin [Eptifib* Other: See Comments Patient states no reaction. Current Medications Current Outpatient Medications on File Prior to Visit Medication Sig doxycycline (VIBRA-TABS) 100 mg tablet Take 1 tablet by mouth two times a day for 10 days. donepezil (ARICEPT) 5 mg tablet Take 5 mg by mouth daily at bedtime. FLUoxetine (PROZAC) 20 mg capsule Take 1 capsule by mouth once daily. busPIRone (BUSPAR) 5 mg tablet Take 2 tablets by mouth once daily. amLODIPine (NORVASC) 5 mg tablet Take 1 tablet by mouth once daily. doxazosin (CARDURA) 1 mg tablet Take 1 tablet by mouth daily at bedtime. carvedilol (COREG) 12.5 mg tablet Take 1 tablet by mouth two times a day with meals. lisinopril (ZESTRIL) 40 mg tablet Take 1 tablet by mouth once daily. atorvastatin (LIPITOR) 40 mg tablet Take 1 tablet by mouth daily at bedtime. apixaban (ELIQUIS) 2.5 mg tab(s) Take 1 tablet by mouth two times a day. fluticasone-vilanterol (BREO ELLIPTA) 100-25 mcg/dose inhaler Inhale 1 Inhalation as instructed once daily. albuterol HFA (VENTOLIN HFA) 90 mcg/actuation inhaler Inhale 2 Puffs as instructed every 4 hours as needed for wheezing/shortness of breath. Cholecalciferol, Vitamin D3, 125 mcg (5,000 unit) cap Take 5,000 Units by mouth once daily. No current facility-administered medications on file prior to visit. Social History Social History Tobacco Use Smoking status: Every Day Years: 60 Types: Cigarettes Last attempt to quit: 02/03/2019 Years since quittin.2 Smokeless tobacco: Never Vaping Use Vaping Use: Never used Substance Use Topics Alcohol use: Yes Alcohol/week: 7.0 standard drinks of alcohol Types: 7 Cans of Beer (12oz) per week Drug use: Never Review of Symptoms REVIEW OF SYSTEMS GENERAL: No weight loss, malaise or fevers RESPIRATORY: Negative for cough, hemoptysis, wheezing, COPD, dyspnea or shortness of breath CARDIOVASCULAR: Negative for chest pain, leg swelling, hypertension, CHF or palpitations GI: No nausea, vomiting, or diarrhea SKIN: See HPI EXAM: BP 118/66 Pulse (!) 51 Temp 36.3 ?C (97.3 ?F) Resp 16 Wt 55.7 kg (122 lb 12.8 oz) SpO2 98% BMI 17.13 kg/m? General Appearance: Well appearing, alert, in no acute distress, well-hydrated, Thin. Skin: raised red nodule on left upper back with friable tissue 1.2 x 1.2 cm with purulent drainage with 8 x 7 cm area of surroundi (more content not included)... [facility] 05-13-2024 History of Present illness Narrative Chief Complaint Patient presents with: Recheck: wound HPI Juli Shook is a 78 year old male who presents here today for to recheck cellulitis and skin lesion on left upper back. Recheck weight, BP and HR as well. Accompanied today by his son Jayjay who is providing history for patient with Alzheimer's. Son is first alternate on his healthcare POA. Since last OV, patient has been taking abx without side effects. They have not checked his wound or changed his dressing, so they are unsure if it is better or worse. Denies fever/chills, nausea, vomiting, diarrhea since starting abx. He has not yet called to schedule OV for general surgery for biopsy vs excision. BP improved today. Taking all medications as prescribed. They are continuing to encourage patient to eat 3 meals per day. Labs ordered at OV 2 days ago were drawn today and are still pending. Weight stable in the last 2 days. Requesting refill on his Prozac. Past medical history, appointments, medications, allergies reviewed. Previous Medical History PAST MEDICAL HISTORY Diagnosis Date Alzheimer's dementia ([facility]) Colon polyps Dr. Avalos COPD (chronic obstructive pulmonary disease) ([facility]) 01/27/2023 moderately severe Coronary artery disease Dr. 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 Daniel Memory impairment Dr. Leong Pulmonary embolism ([facility]) S/P IVC filter 2016 Thyroid nodule 12/20/2022 US at [facility] showed 2.7 cm nodule on right lobe Previous Surgical History PAST SURGICAL HISTORY Procedure Laterality Date COLONOSCOPY Last done age 69 or 70 with polyps. told he would not need follow up IVC FILTER PLACEMENT/REMOVAL 2016 STENT 1999, 2001 Cardiac x2 THORACENTESIS 2003 TONSILLECTOMY AND ADENOIDECTOMY HX childhood Family History FAMILY HISTORY Problem Relation Age of Onset Hypertension Father other (hypercoagulable state) Father other (hypercoagulable state) Other other (hypercoagulable state) Grandchild Thyroid Daughter other (factor v) Son Patient Allergies ALLERGIES Allergen Reactions Sulfa (Sulfonamide * Swelling Heparin Other: See Comments Patient states no reactions. Integrilin [Eptifib* Other: See Comments Patient states no reaction. Current Medications Current Outpatient Medications on File Prior to Visit Medication Sig doxycycline (VIBRA-TABS) 100 mg tablet Take 1 tablet by mouth two times a day for 10 days. donepezil (ARICEPT) 5 mg tablet Take 5 mg by mouth daily at bedtime. FLUoxetine (PROZAC) 20 mg capsule Take 1 capsule by mouth once daily. busPIRone (BUSPAR) 5 mg tablet Take 2 tablets by mouth once daily. amLODIPine (NORVASC) 5 mg tablet Take 1 tablet by mouth once daily. doxazosin (CARDURA) 1 mg tablet Take 1 tablet by mouth daily at bedtime. carvedilol (COREG) 12.5 mg tablet Take 1 tablet by mouth two times a day with meals. lisinopril (ZESTRIL) 40 mg tablet Take 1 tablet by mouth once daily. atorvastatin (LIPITOR) 40 mg tablet Take 1 tablet by mouth daily at bedtime. apixaban (ELIQUIS) 2.5 mg tab(s) Take 1 tablet by mouth two times a day. fluticasone-vilanterol (BREO ELLIPTA) 100-25 mcg/dose inhaler Inhale 1 Inhalation as instructed once daily. albuterol HFA (VENTOLIN HFA) 90 mcg/actuation inhaler Inhale 2 Puffs as instructed every 4 hours as needed for wheezing/shortness of breath. Cholecalciferol, Vitamin D3, 125 mcg (5,000 unit) cap Take 5,000 Units by mouth once daily. No current facility-administered medications on file prior to visit. Social History Social History Tobacco Use Smoking status: Every Day Years: 60 Types: Cigarettes Last attempt to quit: 02/03/2019 Years since quittin.2 Smokeless tobacco: Never Vaping Use Vaping Use: Never used Substance Use Topics Alcohol use: Yes Alcohol/week: 7.0 standard drinks of alcohol Types: 7 Cans of Beer (12oz) per week Drug use: Never Review of Symptoms REVIEW OF SYSTEMS GENERAL: No weight loss, malaise or fevers RESPIRATORY: Negative for cough, hemoptysis, wheezing, COPD, dyspnea or shortness of breath CARDIOVASCULAR: Negative for chest pain, leg swelling, hypertension, CHF or palpitations GI: No nausea, vomiting, or diarrhea SKIN: See HPI EXAM: BP 118/66 Pulse (!) 51 Temp 36.3 C (97.3 F) Resp 16 Wt 55.7 kg (122 lb 12.8 oz) SpO2 98% BMI 17.13 kg/m General Appearance: Well appearing, alert, in no acute distress, well-hydrated, Thin. Skin: raised red nodule on left upper back with friable tissue 1.2 x 1.2 cm with purulent drainage with 8 x 7 cm area of surrounding cellulitis without abscess or purulent drainage. Cellulitis does appear to be improving as it is darker red without warmth to touch. Lungs: Lungs clear to auscultation. No wheezing, rhonchi, rales.. Heart: RRR without murmur, gallop, or rubs. No ectopy. Abdomen: Normal abdominal exam, Abdomen soft, non-tender. Bowel sounds normal. No masses, organomegaly. Extremities: No deformities, edema, skin discoloration, clubbing or cyanosis. Good capillary refill. . Health Maintenance List Advance Directive Discussion Never done DTaP,Tdap,Td Vaccine(1 - Tdap) due on 01/29/2025 RSV Vaccine(1 - 1-dose 60+ series) due on 01/29/2025 Shingrix Vaccine(1 of 2) due on 01/29/2025 Influenza Vaccine(1) due on 06/27/2024 LDL Cholesterol due on 01/29/2025 Annual PCP Team Chronic Disease Visit due on 05/11/2025 BP Controlled (<130/80) due on 05/11/2025 Diabetes Screening due on 01/29/2027 Spirometry Completed Covid-19 Vaccine Completed Pneumococcal Vaccine: 65+ Completed Colorectal Cancer Screening Discontinued Data Reviewed: CXR 05/11/2024 IMPRESSION: No acute radiographic abnormality. ASSESSMENT/PLAN: 1. Cellulitis of skin - ICD9: 682.9, ICD10: L03.90 (primary diagnosis) Improving. - Continue treatment with doxycycline - No lymphangetic streaking, this was defined for patient to watch for and to seek medical care immediately if appears - Area of cellulitis defined with pen, seek further attention if this area continues to enlarge - Follow up for recheck in 1 week or PRN - ABSCESS AND WOUND CULTURE WITH GRAM STAIN 2. Skin lesion - ICD9: 709.9, ICD10: L98.9 Draining purulent material today. Obtained wound culture swab and will call with results in about 2 days. Needs to schedule OV with general surgery next week to discuss biopsy vs excision. - ABSCESS AND WOUND CULTURE WITH GRAM STAIN 3. Unintentional weight loss - ICD9: 783.21, ICD10: R63.4 Suspect 2/2 alzheimer's dementia, but labs are still pending. CXR normal. Encouraged 3 meals per day and higher caloric intake. 4. Underweight - ICD9: 783.22, ICD10: R63.6 Suspect 2/2 alzheimer's dementia, but labs are still pending. CXR normal. Encouraged 3 meals per day and higher caloric intake. 5. SHON (generalized anxiety disorder) - ICD9: 300.02, ICD10: F41.1 Controlled. Refill prozac. - FLUOXETINE 20 MG CAPSULE Medical Decision Making: Problems: Moderate: New problem with uncertain prognosis Data: Unique test(s) ordered: 1 Risk: Moderate: Moderate risk from testing/treatment and Drug management Medical Decision Making Level: 4 - Moderate Ender Rollins MD documented in this encounter [facility] 05-11-2024 History of Present illness Narrative Radiology Service Progress Note PATIENT NAME: Juli Shook DATE OF SERVICE: May 11, 2024 TIME: 7:41 PM PATIENT IDENTITY VERIFICATION COMPLETED USING TWO (2) IDENTIFIERS: Name and Date of confirmed by patient verbally. FALL SCREENING: Has the patient had 2 falls in the last year or 1 fall with injury or currently using an Ambulatory Assistive Device (Walker, Cane, Wheelchair, Crutches, etc.)? No PATIENT GENDER DATA: Male PATIENT RELEVANT IMPLANT DATA REVIEWED: Not Applicable PATIENT PRESENTS WITH AN IMPLANTABLE OR ATTACHED VASCULAR SURGEON: No RADIOLOGY DEPARTMENT: General X-ray: Exam(s) Completed: Chest X-Ray PERIPHERAL IV DATA: Not applicable SIGNED BY: RT Dagmar(R) May 11, 2024 7:41 PM documented in this encounter [facility] 05-11-2024 Note HNO ID: [id number] Author: HAN SANDERS RT(R) Service: Radiology Author Type: Technologist Type: Progress Notes Filed: 05/11/2024 19:48 Note Text: Radiology Service Progress Note PATIENT NAME: Juli Shook DATE OF SERVICE: May 11, 2024 TIME: 7:41 PM PATIENT IDENTITY VERIFICATION COMPLETED USING TWO (2) IDENTIFIERS: Name and Date of confirmed by patient verbally. FALL SCREENING: Has the patient had 2 falls in the last year or 1 fall with injury or currently using an Ambulatory Assistive Device (Walker, Cane, Wheelchair, Crutches, etc.)? No PATIENT GENDER DATA: Male PATIENT RELEVANT IMPLANT DATA REVIEWED: Not Applicable PATIENT PRESENTS WITH AN IMPLANTABLE OR ATTACHED VASCULAR SURGEON: No RADIOLOGY DEPARTMENT: General X-ray: Exam(s) Completed: Chest X-Ray PERIPHERAL IV DATA: Not applicable SIGNED BY: Han Sanders RT(R) May 11, 2024 7:41 PM [facility] 05-11-2024 Instructions Ender Rollins MD - 05/11/2024 7:21 PM EDT Hold your cardura tonight and increase fluid intake. documented in this encounter [facility] 05-11-2024 Note HNO ID: [id number] Author: ENDER ROLLINS MD Service: ? Author Type: Physician Type: Progress Notes Filed: 05/12/2024 07:14 Note Text: Chief Complaint Patient presents with: Weight Problem: Continued weight loss- patient typically doesn't eat unless someone puts food in front of him. Diarrhea: Patient reports diarrhea to family and dr Leong recently put patient on aricept approx 1 month Derm Problem: Areas to back-sores. Derm Referral? HPI Juli Shook is a 78 year old male who presents here today for Above Complaints. Accompanied today by his son Jayjay who is providing history for patient with Alzheimer's. Patient's weight is down another 4 lbs since last OV about 6 weeks ago. Patient has been eating 1-2 meals per day. Son states that if you put a plate of food in front of him he will clear the plate. Will not make his own food. Alzheimer's symptoms seem to be worsening despite taking Aricept. Patient still living at home with his . Children come to check on him every 1-2 days. does make 1-2 meals most days of the week and helps with some ADLs. Children will bring food or make something they have there for him. Also notes that the patient has been having 1 episode of loose stools per day since starting the Aricept. BP low today. Does not have a way to check BP at home. Denies abdominal pain, fever/chills, hematochezia, melena, constipation, lightheadedness, dizziness, nausea, vomiting. Son notes that he has has a spot on his left upper back which is irritated. Present for about 2 weeks. Raised lesion that bleeds if he bumps it. Not treating with anything OTC. Seems to be getting worse. Past medical history, appointments, medications, allergies reviewed. Previous Medical History PAST MEDICAL HISTORY Diagnosis Date Alzheimer's dementia ([facility]) Colon polyps Dr. Avalos COPD (chronic obstructive pulmonary disease) ([facility]) 01/27/2023 moderately severe Coronary artery disease Dr. 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 Daniel Memory impairment Dr. Leong Pulmonary embolism ([facility]) S/P IVC filter 2016 Thyroid nodule 12/20/2022 US at [facility] showed 2.7 cm nodule on right lobe Previous Surgical History PAST SURGICAL HISTORY Procedure Laterality Date COLONOSCOPY Last done age 69 or 70 with polyps. told he would not need follow up IVC FILTER PLACEMENT/REMOVAL 2016 STENT 1999, 2001 Cardiac x2 THORACENTESIS 2003 TONSILLECTOMY AND ADENOIDECTOMY HX childhood Family History FAMILY HISTORY Problem Relation Age of Onset Hypertension Father other (hypercoagulable state) Father other (hypercoagulable state) Other other (hypercoagulable state) Grandchild Thyroid Daughter other (factor v) Son Patient Allergies ALLERGIES Allergen Reactions Sulfa (Sulfonamide * Swelling Heparin Other: See Comments Patient states no reactions. Integrilin [Eptifib* Other: See Comments Patient states no reaction. Current Medications Current Outpatient Medications on File Prior to Visit Medication Sig donepezil (ARICEPT) 5 mg tablet Take 5 mg by mouth daily at bedtime. FLUoxetine (PROZAC) 20 mg capsule Take 1 capsule by mouth once daily. busPIRone (BUSPAR) 5 mg tablet Take 2 tablets by mouth once daily. amLODIPine (NORVASC) 5 mg tablet Take 1 tablet by mouth once daily. doxazosin (CARDURA) 1 mg tablet Take 1 tablet by mouth daily at bedtime. carvedilol (COREG) 12.5 mg tablet Take 1 tablet by mouth two times a day with meals. lisinopril (ZESTRIL) 40 mg tablet Take 1 tablet by mouth once daily. atorvastatin (LIPITOR) 40 mg tablet Take 1 tablet by mouth daily at bedtime. apixaban (ELIQUIS) 2.5 mg tab(s) Take 1 tablet by mouth two times a day. fluticasone-vilanterol (BREO ELLIPTA) 100-25 mcg/dose inhaler Inhale 1 Inhalation as instructed once daily. albuterol HFA (VENTOLIN HFA) 90 mcg/actuation inhaler Inhale 2 Puffs as instructed every 4 hours as needed for wheezing/shortness of breath. Cholecalciferol, Vitamin D3, 125 mcg (5,000 unit) cap Take 5,000 Units by mouth once daily. No current facility-administered medications on file prior to visit. Social History Social History Tobacco Use Smoking status: Every Day Years: 60 Types: Cigarettes Last attempt to quit: 02/03/2019 Years since quittin.2 Smokeless tobacco: Never Vaping Use Vaping Use: Never used Substance Use Topics Alcohol use: Yes Alcohol/week: 7.0 standard drinks of alcohol Types: 7 Cans of Beer (12oz) per week Drug use: Never Review of Symptoms REVIEW OF SYSTEMS GENERAL: No weight loss, malaise or fevers RESPIRATORY: Admits to stable chronic productive cough with yellow/white sputum and SOB 2/2 COPD. CARDIOVAS (more content not included)... [facility] 05-11-2024 History of Present illness Narrative Images from the original note were not included. Chief Complaint Patient presents with: Weight Problem: Continued weight loss- patient typically doesn't eat unless someone puts food in front of him. Diarrhea: Patient reports diarrhea to family and dr Leong recently put patient on aricept approx 1 month Derm Problem: Areas to back-sores. Derm Referral? HPI Juli Shook is a 78 year old male who presents here today for Above Complaints. Accompanied today by his son Jayjay who is providing history for patient with Alzheimer's. Patient's weight is down another 4 lbs since last OV about 6 weeks ago. Patient has been eating 1-2 meals per day. Son states that if you put a plate of food in front of him he will clear the plate. Will not make his own food. Alzheimer's symptoms seem to be worsening despite taking Aricept. Patient still living at home with his . Children come to check on him every 1-2 days. does make 1-2 meals most days of the week and helps with some ADLs. Children will bring food or make something they have there for him. Also notes that the patient has been having 1 episode of loose stools per day since starting the Aricept. BP low today. Does not have a way to check BP at home. Denies abdominal pain, fever/chills, hematochezia, melena, constipation, lightheadedness, dizziness, nausea, vomiting. Son notes that he has has a spot on his left upper back which is irritated. Present for about 2 weeks. Raised lesion that bleeds if he bumps it. Not treating with anything OTC. Seems to be getting worse. Past medical history, appointments, medications, allergies reviewed. Previous Medical History PAST MEDICAL HISTORY Diagnosis Date Alzheimer's dementia ([facility]) Colon polyps Dr. Avalos COPD (chronic obstructive pulmonary disease) ([facility]) 01/27/2023 moderately severe Coronary artery disease Dr. 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 Daniel Memory impairment Dr. Leong Pulmonary embolism ([facility]) S/P IVC filter 2016 Thyroid nodule 12/20/2022 US at [facility] showed 2.7 cm nodule on right lobe Previous Surgical History PAST SURGICAL HISTORY Procedure Laterality Date COLONOSCOPY Last done age 69 or 70 with polyps. told he would not need follow up IVC FILTER PLACEMENT/REMOVAL 2016 STENT 1999, 2001 Cardiac x2 THORACENTESIS 2003 TONSILLECTOMY AND ADENOIDECTOMY HX childhood Family History FAMILY HISTORY Problem Relation Age of Onset Hypertension Father other (hypercoagulable state) Father other (hypercoagulable state) Other other (hypercoagulable state) Grandchild Thyroid Daughter other (factor v) Son Patient Allergies ALLERGIES Allergen Reactions Sulfa (Sulfonamide * Swelling Heparin Other: See Comments Patient states no reactions. Integrilin [Eptifib* Other: See Comments Patient states no reaction. Current Medications Current Outpatient Medications on File Prior to Visit Medication Sig donepezil (ARICEPT) 5 mg tablet Take 5 mg by mouth daily at bedtime. FLUoxetine (PROZAC) 20 mg capsule Take 1 capsule by mouth once daily. busPIRone (BUSPAR) 5 mg tablet Take 2 tablets by mouth once daily. amLODIPine (NORVASC) 5 mg tablet Take 1 tablet by mouth once daily. doxazosin (CARDURA) 1 mg tablet Take 1 tablet by mouth daily at bedtime. carvedilol (COREG) 12.5 mg tablet Take 1 tablet by mouth two times a day with meals. lisinopril (ZESTRIL) 40 mg tablet Take 1 tablet by mouth once daily. atorvastatin (LIPITOR) 40 mg tablet Take 1 tablet by mouth daily at bedtime. apixaban (ELIQUIS) 2.5 mg tab(s) Take 1 tablet by mouth two times a day. fluticasone-vilanterol (BREO ELLIPTA) 100-25 mcg/dose inhaler Inhale 1 Inhalation as instructed once daily. albuterol HFA (VENTOLIN HFA) 90 mcg/actuation inhaler Inhale 2 Puffs as instructed every 4 hours as needed for wheezing/shortness of breath. Cholecalciferol, Vitamin D3, 125 mcg (5,000 unit) cap Take 5,000 Units by mouth once daily. No current facility-administered medications on file prior to visit. Social History Social History Tobacco Use Smoking status: Every Day Years: 60 Types: Cigarettes Last attempt to quit: 02/03/2019 Years since quittin.2 Smokeless tobacco: Never Vaping Use Vaping Use: Never used Substance Use Topics Alcohol use: Yes Alcohol/week: 7.0 standard drinks of alcohol Types: 7 Cans of Beer (12oz) per week Drug use: Never Review of Symptoms REVIEW OF SYSTEMS GENERAL: No weight loss, malaise or fevers RESPIRATORY: Admits to stable chronic productive cough with yellow/white sputum and SOB 2/2 COPD. CARDIOVASCULAR: Negative for chest pain, leg swelling, hypertension, CHF or palpitations GI: See HPI EXAM: BP 96/58 Pulse (!) 50 Temp 36.4 C (97.5 F) Resp 16 Wt 55.6 kg (122 lb 9.6 oz) SpO2 100% BMI 17.10 kg/m BP w/Orthostatic Vitals Date and Time Orthostatic BP Orthostatic Pulse BP Pulse BP Position BP Site BP Cuff Size 05/11/241953 106/60 53 -- -- Standing Right Arm Regular Adult 05/11/241952 110/60 50 -- -- Sitting Right Arm Regular Adult 05/11/241951 124/70 46 -- -- Supine Right Arm Regular Adult 05/11/241845 -- -- 96/58 50 -- -- -- Peak Flow Date and Time PF Resp 05/11/241845 -- 16 General Appearance: Well appearing, alert, in no acute distress, well-hydrated, well nourished.. Skin: raised red nodule on left upper back with friable tissue 1.2 x 1.2 cm with 8 x 7 cm area of surrounding cellulitis without abscess or purulent drainage. . Lungs: Positive findings: mildly decreased air entry bilaterally, wheezing , rhonchi . Heart: Negative findings: no murmurs, clicks, or gallops, Positive findings: bradycardia. Abdomen: Normal abdominal exam, Abdomen soft, non-tender. Bowel sounds normal. No masses, organomegaly. Extremities: No deformities, edema, skin discoloration, clubbing or cyanosis. Good capillary refill. . Health Maintenance List Advance Directive Discussion Never done DTaP,Tdap,Td Vaccine(1 - Tdap) due on 01/29/2025 RSV Vaccine(1 - 1-dose 60+ series) due on 01/29/2025 Shingrix Vaccine(1 of 2) due on 01/29/2025 Influenza Vaccine(1) due on 06/27/2024 LDL Cholesterol due on 01/29/2025 Annual PCP Team Chronic Disease Visit due on 03/30/2025 BP Controlled (<130/80) due on 03/30/2025 Diabetes Screening due on 01/29/2027 Spirometry Completed Covid-19 Vaccine Completed Pneumococcal Vaccine: 65+ Completed Colorectal Cancer Screening Discontinued Data reviewed Latest Ref Rng 01/30/2024 WBC 3.70 - 11.00 k/uL 9.06 RBC 4.20 - 6.00 m/uL 5.14 Hemoglobin 13.0 - 17.0 g/dL 15.4 Hematocrit 39.0 - 51.0 % 47.1 MCV 80.0 - 100.0 fL 91.6 MCH 26.0 - 34.0 pg 30.0 MCHC 30.5 - 36.0 g/dL 32.7 RDW-CV 11.5 - 15.0 % 14.2 Platelet Count 150 - 400 k/uL 273 MPV 9.0 - 12.7 fL 11.2 Neut% % 69.5 Abs Neut (ANC) 1.45 - 7.50 k/uL 6.30 Lymph% % 21.0 Abs Lymph 1.00 - 4.00 k/uL 1.90 Emmet% % 6.6 Abs Emmet <0.87 k/uL 0.60 Eosin% % 2.1 Abs Eosin <0.46 k/uL 0.19 Baso% % 0.6 Abs Baso <0.11 k/uL 0.05 Immature Gran % % 0.2 IMMATURE GRANS (ABS) <0.10 k/uL <0.03 NRBC /100 WBC 0.0 Absolute nRBC <0.01 k/uL <0.01 DTYPE Auto Protein, Total 6.3 - 8.0 g/dL 6.9 Albumin 3.9 - 4.9 g/dL 3.9 Calcium 8.5 - 10.2 mg/dL 9.6 Bilirubin, Total 0.2 - 1.3 mg/dL 0.8 Alkaline Phosphatase 38 - 113 U/L 128 (H) AST 14 - 40 U/L 21 ALT 10 - 54 U/L 15 Glucose 74 - 99 mg/dL 90 BUN 9 - 24 mg/dL 14 Creatinine 0.73 - 1.22 mg/dL 1.06 Sodium 136 - 144 mmol/L 141 Potassium 3.7 - 5.1 mmol/L 4.0 Chloride 97 - 105 mmol/L 104 CO2 22 - 30 mmol/L 26 Anion Gap 9 - 18 mmol/L 11 eGFR >=60 mL/min/1.73m 71 Total Cholesterol, Nonfasting <200 mg/dL 122 Triglycerides, Nonfasting <150 mg/dL 58 HDL Cholesterol, Nonfasting >39 mg/dL 56 LDL Cholesterol, Nonfasting <100 mg/dL 54 Non HDL Cholesterol, Nonfasting <130 mg/dL 66 VLDL Cholesterol, Nonfasting <30 mg/dL 12 Total Chol/HDL Ratio, Nonfasting <5.10 mg/dL 2.18 LDL/HDL Ratio, Nonfasting <2.54 mg/dL 0.96 Vitamin B12 232 - 1,245 pg/mL 446 Legend: (H) High ASSESSMENT/PLAN: 1. Unintentional weight loss - ICD9: 783.21, ICD10: R63.4 (primary diagnosis) Suspect this is 2/2 alzheimer dementia and not getting high enough caloric intake. Will obtain labs, UA, and CXR for further workup. Discussed increasing caloric intake and that patient would likely benefit from mcc placement. Continue Aricept. - COMPLETE BLOOD COUNT AND DIFFERENTIAL - COMPREHENSIVE METABOLIC PANEL - THYROID STIMULATING HORMONE - SEDIMENTATION RATE, WESTERGREN - C-REACTIVE PROTEIN - URINALYSIS WITH MICROSCOPIC, REFLEX CULTURE - XR CHEST 2V FRONTAL/LAT 2. Alzheimer's dementia with anxiety, unspecified dementia severity, unspecified timing of dementia onset (HCC) - ICD9: 331.0, 294.11, ICD10: G30.9, F02.84 Continue Aricept. F/u with neurology. 3. Cellulitis of skin - ICD9: 682.9, ICD10: L03.90 - Begin treatment with doxycycline - No lymphangetic streaking, this was defined for patient to watch for and to seek medical care immediately if appears - Area of cellulitis defined with pen, seek further attention if this area continues to enlarge - Follow up for recheck in two days - DOXYCYCLINE HYCLATE 100 MG TABLET 4. Skin lesion - ICD9: 709.9, ICD10: L98.9 Referral to general surgery for biopsy vs excision after cellulitis resolved. - CONSULT TO GENERAL SURGERY 5. Hypotension, unspecified hypotension type - ICD9: 458.9, ICD10: I95.9 Likely 2/2 poor PO intake. BP actually improved on recheck with orthostatics which were negative. Hold cardura tonight. Recheck BP in 2 days at f/u. 6. Bradycardia - ICD9: 427.89, ICD10: R00.1 Stable. Will monitor. 7. Chronic obstructive pulmonary disease, unspecified COPD type (HCC) - ICD9: 496, ICD10: J44.9 Stable. Obtain CXR and continue inhalers as prescribed. I spent a total of 40 minutes on the date of the service which included preparing to see the patient, [id number] patient care, completing clinical documentation, obtaining and/or reviewing separately obtained history, performing a medically appropriate examination, counseling and educating the patient/family/caregiver, and ordering medications, tests, or procedures. Ender Rollins MD documented in this encounter [facility] 03-31-2024 Telephone encounter Note May spoke with patient son Jayjay and he reports would appreciate any resources for needs such as home delivered meals, help at home with cleaning. Jayjay notes that patient lives in [facility]. Sw has [facility] Senior Resource Guide. Sw will mail guide out to Jayjay and attach direct number if family needs assistance with linking up to community resources for patient. Jayjay's address [address] [id number]. [facility] 03-31-2024 Miscellaneous Notes May spoke with patient son Jayjay and he reports would appreciate any resources for needs such as home delivered meals, help at home with cleaning. Jayjay notes that patient lives in [facility]. May has [facility] Senior Resource Guide. May will mail guide out to Jayjay and attach direct number if family needs assistance with linking up to community resources for patient. Jayjay's address [address] [id number]. documented in this encounter [facility] 03-30-2024 History of Present illness Narrative Radiology Service Progress Note PATIENT NAME: Juli Shook DATE OF SERVICE: March 30, 2024 TIME: 11:50 AM PATIENT IDENTITY VERIFICATION COMPLETED USING TWO (2) IDENTIFIERS: Name and Date of confirmed by patient verbally. FALL SCREENING: Has the patient had 2 falls in the last year or 1 fall with injury or currently using an Ambulatory Assistive Device (Walker, Cane, Wheelchair, Crutches, etc.)? No PATIENT GENDER DATA: Male PATIENT RELEVANT IMPLANT DATA REVIEWED: Yes PATIENT PRESENTS WITH AN IMPLANTABLE OR ATTACHED VASCULAR SURGEON: No RADIOLOGY DEPARTMENT: General X-ray: Exam(s) Completed: Chest X-Ray PERIPHERAL IV DATA: Not applicable SIGNED BY: RT Ariela(R) March 30, 2024 11:50 AM documented in this encounter [facility] 03-30-2024 Note HNO ID: [id number] Author: ED VALLE RT(R) Service: Radiology Author Type: Technologist Type: Progress Notes Filed: 03/30/2024 11:57 Note Text: Radiology Service Progress Note PATIENT NAME: Juli Shook DATE OF SERVICE: March 30, 2024 TIME: 11:50 AM PATIENT IDENTITY VERIFICATION COMPLETED USING TWO (2) IDENTIFIERS: Name and Date of confirmed by patient verbally. FALL SCREENING: Has the patient had 2 falls in the last year or 1 fall with injury or currently using an Ambulatory Assistive Device (Walker, Cane, Wheelchair, Crutches, etc.)? No PATIENT GENDER DATA: Male PATIENT RELEVANT IMPLANT DATA REVIEWED: Yes PATIENT PRESENTS WITH AN IMPLANTABLE OR ATTACHED VASCULAR SURGEON: No RADIOLOGY DEPARTMENT: General X-ray: Exam(s) Completed: Chest X-Ray PERIPHERAL IV DATA: Not applicable SIGNED BY: RT Ariela(Adi) March 30, 2024 11:50 AM [facility] 03-30-2024 Note HNO ID: [id number] Author: ENDER ROLLINS MD Service: ? Author Type: Physician Type: Progress Notes Filed: 03/30/2024 13:19 Note Text: Chief Complaint Patient presents with: Follow Up: 4 week anxiety and weight recheck HPI Juli Shook is a 78 year old male who presents here today for Above Complaints. Accompanied today by daughter in law Wiseman. Patient switched from Zoloft to Prozac at last OV for increased fatigue. Previous HPI: Patient started on Zoloft at last OV for concerns for anxiety. He has been taking it in the evenings and they have noticed increased fatigue. The patient does state that he feels less anxious and daughters do agree. Compliant with Buspar [address] Leong's office. They would like to try alternative SSRI to help with fatigue. Weight is down 4 lbs since his OV 1 month ago. Daughters think that he has been missing meals and his Daughter Tl will be staying with him the next couple of weeks to make sure he eats. Since last OV, patient states that he was eating well while his daughter was there, but she left 2 weeks ago and he has not been checking his weight. Patient living alone with his still. DIL states that he is only eating about 1-2 meals per day. Patient states that he has not had much appetite, but does have food at home. not getting around well and she cannot cook and patient is unable to cook for himself. Patient goes out to eat when they have doctors appointments. Patient does not eat if family brings over meals, so they have not been bringing anything recently. Not supplementing with protein shakes regularly. Has had meals on wheels in the past and they did not eat it. Admits to SOB with COPD which is unchanged. Denies fever/chills, night sweats, nausea, vomiting, diarrhea, constipation, hematochezia, melena, urinary symptoms, chest pain. DIL states that they are looking into mcc, but his has been holding out on this. Patient appointment with Dr. Leong for Alzheimer's dementia yesterday and they discontinued is Buspar and switched him to Aricept for his dementia. Has not started it yet. Dementia testing in their office was slightly worse than 1 year ago per DIL. Ordered labs which were completed today. Has MRI of his brain ordered for 04/12. F/u scheduled for July. Fatigue has improved with stopping his Zoloft. DIL states that he does seem less anxious and mood is improved overall. Past medical history, appointments, medications, allergies reviewed. Previous Medical History PAST MEDICAL HISTORY Diagnosis Date Alzheimer's dementia (HCC) Colon polyps Dr. Avalos COPD (chronic obstructive pulmonary disease) (HCC) 01/27/2023 moderately severe Coronary artery disease Dr. Bower DVT (deep venous thrombosis) (HCC) multiple Dyslipidemia Factor V Leiden (HCC) def Generalized anxiety disorder Hypercoagulable state (HCC) possible factor V homozygous Hypertension Intracranial aneurysm Intracranial hemorrhage (HCC) 2015, 12/2018 Dr. Daniel Memory impairment Dr. Leong Pulmonary embolism ([facility]) S/P IVC filter 2015 Thyroid nodule 12/20/2022 US at [facility] showed 2.7 cm nodule on right lobe Previous Surgical History PAST SURGICAL HISTORY Procedure Laterality Date COLONOSCOPY Last done age 69 or 70 with polyps. told he would not need follow up IVC FILTER PLACEMENT/REMOVAL 2016 STENT 1999, 2001 Cardiac x2 THORACENTESIS 2003 TONSILLECTOMY AND ADENOIDECTOMY HX childhood Family History FAMILY HISTORY Problem Relation Age of Onset Hypertension Father other (hypercoagulable state) Father other (hypercoagulable state) Other other (hypercoagulable state) Grandchild Thyroid Daughter other (factor v) Son Patient Allergies ALLERGIES Allergen Reactions Sulfa (Sulfonamide * Swelling Heparin Other: See Comments Patient states no reactions. Integrilin [Eptifib* Other: See Comments Patient states no reaction. Current Medications Current Outpatient Medications on File Prior to Visit Medication Sig donepezil (ARICEPT) 5 mg tablet Take 5 mg by mouth daily at bedtime. FLUoxetine (PROZAC) 20 mg capsule Take 1 capsule by mouth once daily. amLODIPine (NORVASC) 5 mg tablet Take 1 tablet by mouth once daily. doxazosin (CARDURA) 1 mg tablet Take 1 tablet by mouth daily at bedtime. carvedilol (COREG) 12.5 mg tablet Take 1 tablet by mouth two times a day with meals. lisinopril (ZESTRIL) 40 mg tablet Take 1 tablet by mouth once daily. atorvastatin (LIPITOR) 40 mg tablet Take 1 tablet by mouth daily at bedtime. apixaban (ELIQUIS) 2.5 mg tab(s) Take 1 tablet by mouth two times a day. fluticasone-vilanterol (BREO ELLIPTA) 100-25 mcg/dose inhaler Inhale 1 Inhalation as instructed once daily. albuterol HFA (VENTOLIN HFA) 90 mcg/actuation inhaler Inhale 2 Puffs as instructed every 4 hours as needed for wheezing/shortness of breath. Cholecalciferol, V (more content not included)... [facility] 03-30-2024 History of Present illness Narrative Chief Complaint Patient presents with: Follow Up: 4 week anxiety and weight recheck HPI Juli Shook is a 78 year old male who presents here today for Above Complaints. Accompanied today by daughter in law Wiseman. Patient switched from Zoloft to Prozac at last OV for increased fatigue. Previous HPI: Patient started on Zoloft at last OV for concerns for anxiety. He has been taking it in the evenings and they have noticed increased fatigue. The patient does state that he feels less anxious and daughters do agree. Compliant with Buspar [address] Leong's office. They would like to try alternative SSRI to help with fatigue. Weight is down 4 lbs since his OV 1 month ago. Daughters think that he has been missing meals and his Daughter Tl will be staying with him the next couple of weeks to make sure he eats. Since last OV, patient states that he was eating well while his daughter was there, but she left 2 weeks ago and he has not been checking his weight. Patient living alone with his still. DIL states that he is only eating about 1-2 meals per day. Patient states that he has not had much appetite, but does have food at home. not getting around well and she cannot cook and patient is unable to cook for himself. Patient goes out to eat when they have doctors appointments. Patient does not eat if family brings over meals, so they have not been bringing anything recently. Not supplementing with protein shakes regularly. Has had meals on wheels in the past and they did not eat it. Admits to SOB with COPD which is unchanged. Denies fever/chills, night sweats, nausea, vomiting, diarrhea, constipation, hematochezia, melena, urinary symptoms, chest pain. DIL states that they are looking into mcc, but his has been holding out on this. Patient appointment with Dr. Leong for Alzheimer's dementia yesterday and they discontinued is Buspar and switched him to Aricept for his dementia. Has not started it yet. Dementia testing in their office was slightly worse than 1 year ago per JOSEF. Ordered labs which were completed today. Has MRI of his brain ordered for 04/12. F/u scheduled for July. Fatigue has improved with stopping his Zoloft. DIL states that he does seem less anxious and mood is improved overall. Past medical history, appointments, medications, allergies reviewed. Previous Medical History PAST MEDICAL HISTORY Diagnosis Date Alzheimer's dementia ([facility]) Colon polyps Dr. Avalos COPD (chronic obstructive pulmonary disease) ([facility]) 01/27/2023 moderately severe Coronary artery disease Dr. 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 Daniel Memory impairment Dr. Leong Pulmonary embolism ([facility]) S/P IVC filter 2016 Thyroid nodule 12/20/2022 US at [facility] showed 2.7 cm nodule on right lobe Previous Surgical History PAST SURGICAL HISTORY Procedure Laterality Date COLONOSCOPY Last done age 69 or 70 with polyps. told he would not need follow up IVC FILTER PLACEMENT/REMOVAL 2016 STENT 1999, 2001 Cardiac x2 THORACENTESIS 2003 TONSILLECTOMY AND ADENOIDECTOMY HX childhood Family History FAMILY HISTORY Problem Relation Age of Onset Hypertension Father other (hypercoagulable state) Father other (hypercoagulable state) Other other (hypercoagulable state) Grandchild Thyroid Daughter other (factor v) Son Patient Allergies ALLERGIES Allergen Reactions Sulfa (Sulfonamide * Swelling Heparin Other: See Comments Patient states no reactions. Integrilin [Eptifib* Other: See Comments Patient states no reaction. Current Medications Current Outpatient Medications on File Prior to Visit Medication Sig donepezil (ARICEPT) 5 mg tablet Take 5 mg by mouth daily at bedtime. FLUoxetine (PROZAC) 20 mg capsule Take 1 capsule by mouth once daily. amLODIPine (NORVASC) 5 mg tablet Take 1 tablet by mouth once daily. doxazosin (CARDURA) 1 mg tablet Take 1 tablet by mouth daily at bedtime. carvedilol (COREG) 12.5 mg tablet Take 1 tablet by mouth two times a day with meals. lisinopril (ZESTRIL) 40 mg tablet Take 1 tablet by mouth once daily. atorvastatin (LIPITOR) 40 mg tablet Take 1 tablet by mouth daily at bedtime. apixaban (ELIQUIS) 2.5 mg tab(s) Take 1 tablet by mouth two times a day. fluticasone-vilanterol (BREO ELLIPTA) 100-25 mcg/dose inhaler Inhale 1 Inhalation as instructed once daily. albuterol HFA (VENTOLIN HFA) 90 mcg/actuation inhaler Inhale 2 Puffs as instructed every 4 hours as needed for wheezing/shortness of breath. Cholecalciferol, Vitamin D3, 125 mcg (5,000 unit) cap Take 5,000 Units by mouth once daily. busPIRone (BUSPAR) 5 mg tablet Take 2 tablets by mouth once daily. (Patient not taking: Reported on 03/30/2024) No current facility-administered medications on file prior to visit. Social History Social History Tobacco Use Smoking status: Every Day Years: 60 Types: Cigarettes Last attempt to quit: 02/03/2019 Years since quittin.1 Smokeless tobacco: Never Vaping Use Vaping Use: Never used Substance Use Topics Alcohol use: Yes Alcohol/week: 7.0 standard drinks of alcohol Types: 7 Cans of Beer (12oz) per week Drug use: Never Review of Symptoms REVIEW OF SYSTEMS See HPI EXAM: BP 118/68 Pulse (!) 58 Resp 16 Wt 57.5 kg (126 lb 12.8 oz) SpO2 96% BMI 17.69 kg/m General Appearance: thin appearing, AOx3, in no acute distress, well-hydrated, well nourished.. Skin: Skin color, texture, turgor normal, no suspicious rashes or lesions. Lungs: Lungs clear to auscultation. No wheezing, rhonchi, rales.. Heart: RRR without murmur, gallop, or rubs. No ectopy. Abdomen: Normal abdominal exam, Abdomen soft, non-tender. Bowel sounds normal. No masses, organomegaly. Extremities: No deformities, edema, skin discoloration, clubbing or cyanosis. Good capillary refill. . Health Maintenance List Advance Directive Discussion Never done Covid-19 Vaccine(2022- season) due on 12/10/2023 DTaP,Tdap,Td Vaccine(1 - Tdap) due on 01/29/2025 RSV Vaccine(1 - 1-dose 60+ series) due on 01/29/2025 Shingrix Vaccine(1 of 2) due on 01/29/2025 LDL Cholesterol due on 01/29/2025 Annual PCP Team Chronic Disease Visit due on 02/26/2025 BP Controlled (<130/80) due on 02/26/2025 Diabetes Screening due on 01/29/2027 Spirometry Completed Influenza Vaccine Completed Pneumococcal Vaccine: 65+ Completed Colorectal Cancer Screening Discontinued Data reviewed Latest Ref Rng 01/30/2024 WBC 3.70 - 11.00 k/uL 9.06 RBC 4.20 - 6.00 m/uL 5.14 Hemoglobin 13.0 - 17.0 g/dL 15.4 Hematocrit 39.0 - 51.0 % 47.1 MCV 80.0 - 100.0 fL 91.6 MCH 26.0 - 34.0 pg 30.0 MCHC 30.5 - 36.0 g/dL 32.7 RDW-CV 11.5 - 15.0 % 14.2 Platelet Count 150 - 400 k/uL 273 MPV 9.0 - 12.7 fL 11.2 Neut% % 69.5 Abs Neut (ANC) 1.45 - 7.50 k/uL 6.30 Lymph% % 21.0 Abs Lymph 1.00 - 4.00 k/uL 1.90 Emmet% % 6.6 Abs Emmet <0.87 k/uL 0.60 Eosin% % 2.1 Abs Eosin <0.46 k/uL 0.19 Baso% % 0.6 Abs Baso <0.11 k/uL 0.05 Immature Gran % % 0.2 IMMATURE GRANS (ABS) <0.10 k/uL <0.03 NRBC /100 WBC 0.0 Absolute nRBC <0.01 k/uL <0.01 DTYPE Auto Protein, Total 6.3 - 8.0 g/dL 6.9 Albumin 3.9 - 4.9 g/dL 3.9 Calcium 8.5 - 10.2 mg/dL 9.6 Bilirubin, Total 0.2 - 1.3 mg/dL 0.8 Alkaline Phosphatase 38 - 113 U/L 128 (H) AST 14 - 40 U/L 21 ALT 10 - 54 U/L 15 Glucose 74 - 99 mg/dL 90 BUN 9 - 24 mg/dL 14 Creatinine 0.73 - 1.22 mg/dL 1.06 Sodium 136 - 144 mmol/L 141 Potassium 3.7 - 5.1 mmol/L 4.0 Chloride 97 - 105 mmol/L 104 CO2 22 - 30 mmol/L 26 Anion Gap 9 - 18 mmol/L 11 eGFR >=60 mL/min/1.73m 71 Total Cholesterol, Nonfasting <200 mg/dL 122 Triglycerides, Nonfasting <150 mg/dL 58 HDL Cholesterol, Nonfasting >39 mg/dL 56 LDL Cholesterol, Nonfasting <100 mg/dL 54 Non HDL Cholesterol, Nonfasting <130 mg/dL 66 VLDL Cholesterol, Nonfasting <30 mg/dL 12 Total Chol/HDL Ratio, Nonfasting <5.10 mg/dL 2.18 LDL/HDL Ratio, Nonfasting <2.54 mg/dL 0.96 Vitamin B12 232 - 1,245 pg/mL 446 Legend: (H) High ASSESSMENT/PLAN: 1. SHON (generalized anxiety disorder) - ICD9: 300.02, ICD10: F41.1 (primary diagnosis) Improved on Prozac 20 mg daily without side effects. Continue current regimen. Recheck in 3 months. 2. Alzheimer's dementia with anxiety, unspecified dementia severity, unspecified timing of dementia onset (HCC) - ICD9: 331.0, 294.11, ICD10: G30.9, F02.84 Gradually worsening. Start Aricept and obtain labs and imaging per neurology's recommendations. Will place referral to social work to help with meals in the home and discuss mcc options with patient/family. Discussed checking daily weight and calling with continued weight loss. Discussed supplementing with high calorie diet and may supplement with protein shakes at each meal. Red flags for re-assessment reviewed with patient in detail. - PRIMARY CARE SOCIAL WORK CONSULT 3. Weight loss - ICD9: 783.21, ICD10: R63.4 See above. Check CXR. Refusing other cancer testing at this time. - PRIMARY CARE SOCIAL WORK CONSULT - XR CHEST 2V FRONTAL/LAT 4. Encounter for immunization - ICD9: V03.89, ICD10: Z23 - [id number] COVID-19 VACCINE (2022- [place]) AGE 12+ YR Ender Rollins MD documented in this encounter [facility] 02-27-2024 Note HNO ID: [id number] Author: ENDER ROLLINS MD Service: ? Author Type: Physician Type: Progress Notes Filed: 03/01/2024 11:55 Note Text: Chief Complaint Patient presents with: Follow Up: 4 week- anxiety HPI Juli Shook is a 78 year old male who presents here today for Above Complaints. Accompanied today by daughters. Patient is poor historian due to his dementia. Patient started on Zoloft at last OV for concerns for anxiety. He has been taking it in the evenings and they have noticed increased fatigue. The patient does state that he feels less anxious and daughters do agree. Compliant with Buspar [address] Leong's office. They would like to try alternative SSRI to help with fatigue. Weight is down 4 lbs since his OV 1 month ago. Daughters think that he has been missing meals and his Daughter Tl will be staying with him the next couple of weeks to make sure he eats. Past medical history, appointments, medications, allergies reviewed. Previous Medical History PAST MEDICAL HISTORY Diagnosis Date Alzheimer's dementia (HCC) Colon polyps Dr. Avalos COPD (chronic obstructive pulmonary disease) ([facility]) 01/27/2023 moderately severe Coronary artery disease Dr. Bower DVT (deep venous thrombosis) ([facility]) multiple Dyslipidemia Factor V Leiden (HCC) def Generalized anxiety disorder Hypercoagulable state (HCC) possible factor V homozygous Hypertension Intracranial aneurysm Intracranial hemorrhage ([facility]) 2015, 12/2018 Dr. Daniel Memory impairment Dr. Leong Pulmonary embolism ([facility]) S/P IVC filter 2015 Thyroid nodule 12/20/2022 US at [facility] showed 2.7 cm nodule on right lobe Previous Surgical History PAST SURGICAL HISTORY Procedure Laterality Date COLONOSCOPY Last done age 69 or 70 with polyps. told he would not need follow up IVC FILTER PLACEMENT/REMOVAL 2015 STENT 1999, 2001 Cardiac x2 THORACENTESIS 2003 TONSILLECTOMY AND ADENOIDECTOMY HX childhood Family History FAMILY HISTORY Problem Relation Age of Onset Hypertension Father other (hypercoagulable state) Father other (hypercoagulable state) Other other (hypercoagulable state) Grandchild Thyroid Daughter other (factor v) Son Patient Allergies ALLERGIES Allergen Reactions Sulfa (Sulfonamide * Swelling Heparin Other: See Comments Patient states no reactions. Integrilin [Eptifib* Other: See Comments Patient states no reaction. Current Medications Current Outpatient Medications on File Prior to Visit Medication Sig busPIRone (BUSPAR) 5 mg tablet Take 2 tablets by mouth once daily. sertraline (ZOLOFT) 50 mg tablet Take 1 tablet by mouth once daily. amLODIPine (NORVASC) 5 mg tablet Take 1 tablet by mouth once daily. doxazosin (CARDURA) 1 mg tablet Take 1 tablet by mouth daily at bedtime. carvedilol (COREG) 12.5 mg tablet Take 1 tablet by mouth two times a day with meals. lisinopril (ZESTRIL) 40 mg tablet Take 1 tablet by mouth once daily. atorvastatin (LIPITOR) 40 mg tablet Take 1 tablet by mouth daily at bedtime. apixaban (ELIQUIS) 2.5 mg tab(s) Take 1 tablet by mouth two times a day. fluticasone-vilanterol (BREO ELLIPTA) 100-25 mcg/dose inhaler Inhale 1 Inhalation as instructed once daily. albuterol HFA (VENTOLIN HFA) 90 mcg/actuation inhaler Inhale 2 Puffs as instructed every 4 hours as needed for wheezing/shortness of breath. Cholecalciferol, Vitamin D3, 125 mcg (5,000 unit) cap Take 5,000 Units by mouth once daily. No current facility-administered medications on file prior to visit. Social History Social History Tobacco Use Smoking status: Every Day Years: 60 Types: Cigarettes Last attempt to quit: 02/03/2019 Years since quittin.0 Smokeless tobacco: Never Vaping Use Vaping Use: Never used Substance Use Topics Alcohol use: Yes Alcohol/week: 7.0 standard drinks of alcohol Types: 7 Cans of Beer (12oz) per week Drug use: Never Review of Symptoms REVIEW OF SYSTEMS GENERAL: No weight loss, malaise or fevers RESPIRATORY: Negative for cough, hemoptysis, wheezing, COPD, dyspnea or shortness of breath CARDIOVASCULAR: Negative for chest pain, leg swelling, hypertension, CHF or palpitations GI: No nausea, vomiting, or diarrhea SKIN: Negative for lesions, rash, and itching EXAM: BP 120/70 Pulse (!) 56 Resp 16 Wt 58.4 kg (128 lb 12.8 oz) SpO2 96% BMI 17.96 kg/m? General Appearance: Well appearing, alert, in no acute distress, well-hydrated, well nourished.. Lungs: Lungs clear to auscultation. No wheezing, rhonchi, rales.. Heart: RRR without murmur, gallop, or rubs. No ectopy. Health Maintenance List Advance Directive Discussion Never done Covid-19 Vaccine(2022- season) due on 12/10/2023 DTaP,Tdap,Td Vaccine(1 - Tdap) due on 01/29/2025 RSV Vaccine(1 - 1-dose 60+ series) due on 01/29/2025 Shingrix Vaccine(1 of 2) due on 01/29/2025 LDL Cholesterol due on 01/29/2025 Annual PCP Team Ch (more content not included)... [facility] 02-27-2024 History of Present illness Narrative Chief Complaint Patient presents with: Follow Up: 4 week- anxiety HPI Juli Shook is a 78 year old male who presents here today for Above Complaints. Accompanied today by daughters. Patient is poor historian due to his dementia. Patient started on Zoloft at last OV for concerns for anxiety. He has been taking it in the evenings and they have noticed increased fatigue. The patient does state that he feels less anxious and daughters do agree. Compliant with Buspar [address] Leong's office. They would like to try alternative SSRI to help with fatigue. Weight is down 4 lbs since his OV 1 month ago. Daughters think that he has been missing meals and his Daughter Tl will be staying with him the next couple of weeks to make sure he eats. Past medical history, appointments, medications, allergies reviewed. Previous Medical History PAST MEDICAL HISTORY Diagnosis Date Alzheimer's dementia ([facility]) Colon polyps Dr. Avalos COPD (chronic obstructive pulmonary disease) ([facility]) 01/27/2023 moderately severe Coronary artery disease Dr. 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 Daniel Memory impairment Dr. Leong Pulmonary embolism ([facility]) S/P IVC filter 2016 Thyroid nodule 12/20/2022 US at [facility] showed 2.7 cm nodule on right lobe Previous Surgical History PAST SURGICAL HISTORY Procedure Laterality Date COLONOSCOPY Last done age 69 or 70 with polyps. told he would not need follow up IVC FILTER PLACEMENT/REMOVAL 2016 STENT 1999, 2001 Cardiac x2 THORACENTESIS 2003 TONSILLECTOMY AND ADENOIDECTOMY HX childhood Family History FAMILY HISTORY Problem Relation Age of Onset Hypertension Father other (hypercoagulable state) Father other (hypercoagulable state) Other other (hypercoagulable state) Grandchild Thyroid Daughter other (factor v) Son Patient Allergies ALLERGIES Allergen Reactions Sulfa (Sulfonamide * Swelling Heparin Other: See Comments Patient states no reactions. Integrilin [Eptifib* Other: See Comments Patient states no reaction. Current Medications Current Outpatient Medications on File Prior to Visit Medication Sig busPIRone (BUSPAR) 5 mg tablet Take 2 tablets by mouth once daily. sertraline (ZOLOFT) 50 mg tablet Take 1 tablet by mouth once daily. amLODIPine (NORVASC) 5 mg tablet Take 1 tablet by mouth once daily. doxazosin (CARDURA) 1 mg tablet Take 1 tablet by mouth daily at bedtime. carvedilol (COREG) 12.5 mg tablet Take 1 tablet by mouth two times a day with meals. lisinopril (ZESTRIL) 40 mg tablet Take 1 tablet by mouth once daily. atorvastatin (LIPITOR) 40 mg tablet Take 1 tablet by mouth daily at bedtime. apixaban (ELIQUIS) 2.5 mg tab(s) Take 1 tablet by mouth two times a day. fluticasone-vilanterol (BREO ELLIPTA) 100-25 mcg/dose inhaler Inhale 1 Inhalation as instructed once daily. albuterol HFA (VENTOLIN HFA) 90 mcg/actuation inhaler Inhale 2 Puffs as instructed every 4 hours as needed for wheezing/shortness of breath. Cholecalciferol, Vitamin D3, 125 mcg (5,000 unit) cap Take 5,000 Units by mouth once daily. No current facility-administered medications on file prior to visit. Social History Social History Tobacco Use Smoking status: Every Day Years: 60 Types: Cigarettes Last attempt to quit: 02/03/2019 Years since quittin.0 Smokeless tobacco: Never Vaping Use Vaping Use: Never used Substance Use Topics Alcohol use: Yes Alcohol/week: 7.0 standard drinks of alcohol Types: 7 Cans of Beer (12oz) per week Drug use: Never Review of Symptoms REVIEW OF SYSTEMS GENERAL: No weight loss, malaise or fevers RESPIRATORY: Negative for cough, hemoptysis, wheezing, COPD, dyspnea or shortness of breath CARDIOVASCULAR: Negative for chest pain, leg swelling, hypertension, CHF or palpitations GI: No nausea, vomiting, or diarrhea SKIN: Negative for lesions, rash, and itching EXAM: BP 120/70 Pulse (!) 56 Resp 16 Wt 58.4 kg (128 lb 12.8 oz) SpO2 96% BMI 17.96 kg/m General Appearance: Well appearing, alert, in no acute distress, well-hydrated, well nourished.. Lungs: Lungs clear to auscultation. No wheezing, rhonchi, rales.. Heart: RRR without murmur, gallop, or rubs. No ectopy. Health Maintenance List Advance Directive Discussion Never done Covid-19 Vaccine( season) due on 12/10/2023 DTaP,Tdap,Td Vaccine(1 - Tdap) due on 01/29/2025 RSV Vaccine(1 - 1-dose 60+ series) due on 01/29/2025 Shingrix Vaccine(1 of 2) due on 01/29/2025 LDL Cholesterol due on 01/29/2025 Annual PCP Team Chronic Disease Visit due on 01/29/2025 BP Controlled (<130/80) due on 01/29/2025 Diabetes Screening due on 01/29/2027 Spirometry Completed Influenza Vaccine Completed Pneumococcal Vaccine: 65+ Completed Colorectal Cancer Screening Discontinued ASSESSMENT/PLAN: 1. SHON (generalized anxiety disorder) - ICD9: 300.02, ICD10: F41.1 (primary diagnosis) Symptoms improved, but with side effect of fatigue. Will stop Zoloft and switch to Prozac. Recheck symptoms in 4-6 weeks. - FLUOXETINE 20 MG CAPSULE 2. Alzheimer's dementia with anxiety, unspecified dementia severity, unspecified timing of dementia onset (HCC) - ICD9: 331.0, 294.11, ICD10: G30.9, F02.84 Gradually worsening memory loss. F/u recommendations from neurology. Daughter will be staying with him to help with meals and making sure he is eating. Recheck weight in 1 month. 3. Weight loss - ICD9: 783.21, ICD10: R63.4 See above. Ender Rollins MD documented in this encounter [facility] 01-30-2024 Note HNO ID: [id number] Author: ENDER ROLLINS MD Service: ? Author Type: Physician Type: Progress Notes Filed: 01/30/2024 10:31 Note Text: Chief Complaint Patient presents with: Follow Up: 6 month HPI Juli Shook is a 78 year old male who presents here today for Above Complaints.Accompanied today by daughter. No new concerns. Denies recent falls. Patient is poor historian due to his dementia. Noted that Dr. Leong increased his Buspar from 5 mg to 10 mg daily for uncontrolled anxiety. Daughter does not think that this medication change has helped. Admits to feeling anxious, excessive worrying, increased agitation. Denies racing thoughts, insomnia, panic symptoms, SI/HI. Has f/u with their office on 03/29 to f/u with Alzheimer's dementia. COPD: Patient is compliant with Breo as prescribed. Complains of chronic productive cough with light yellow sputum. Rarely uses his albuterol inhaler. Denies fever/chills, SOB, wheezing. CAD: Managed by [facility] cardiology. Reviewed OV from 2 weeks ago without change in regimen. Denies chest pain, palpitations, LE edema. SOB attributed to COPD. On anticoagulation for history of PE/DVT and factor V. Denies bleeding or bruising symptoms. Requesting vitamin B12 level. Asking about restarting shots. Past medical history, appointments, medications, allergies reviewed. Previous Medical History PAST MEDICAL HISTORY Diagnosis Date Colon polyps Dr. Avalos COPD (chronic obstructive pulmonary disease) ([facility]) 01/27/2023 moderately severe Coronary artery disease Dr. Bower DVT (deep venous thrombosis) ([facility]) multiple Dyslipidemia Factor V Leiden ([facility]) def Hypercoagulable state ([facility]) possible factor V homozygous Hypertension Intracranial aneurysm Intracranial hemorrhage ([facility]) 2015, 12/2018 Dr. Daniel Memory impairment Dr. Leong Pulmonary embolism ([facility]) S/P IVC filter 2015 Thyroid nodule 12/20/2022 US at [facility] showed 2.7 cm nodule on right lobe Previous Surgical History PAST SURGICAL HISTORY Procedure Laterality Date COLONOSCOPY Last done age 69 or 70 with polyps. told he would not need follow up IVC FILTER PLACEMENT/REMOVAL 2016 STENT 1999, 2001 Cardiac x2 THORACENTESIS 2003 TONSILLECTOMY AND ADENOIDECTOMY HX childhood Family History FAMILY HISTORY Problem Relation Age of Onset Hypertension Father other (hypercoagulable state) Father other (hypercoagulable state) Other other (hypercoagulable state) Grandchild Thyroid Daughter other (factor v) Son Patient Allergies ALLERGIES Allergen Reactions Sulfa (Sulfonamide * Swelling Heparin Other: See Comments Patient states no reactions. Integrilin [Eptifib* Other: See Comments Patient states no reaction. Current Medications Current Outpatient Medications on File Prior to Visit Medication Sig amLODIPine (NORVASC) 5 mg tablet Take 1 tablet by mouth once daily. doxazosin (CARDURA) 1 mg tablet Take 1 tablet by mouth daily at bedtime. carvedilol (COREG) 12.5 mg tablet Take 1 tablet by mouth two times a day with meals. lisinopril (ZESTRIL) 40 mg tablet Take 1 tablet by mouth once daily. atorvastatin (LIPITOR) 40 mg tablet Take 1 tablet by mouth daily at bedtime. apixaban (ELIQUIS) 2.5 mg tab(s) Take 1 tablet by mouth two times a day. fluticasone-vilanterol (BREO ELLIPTA) 100-25 mcg/dose inhaler Inhale 1 Inhalation as instructed once daily. busPIRone (BUSPAR) 5 mg tablet Take 1 tablet by mouth once daily. albuterol HFA (VENTOLIN HFA) 90 mcg/actuation inhaler Inhale 2 Puffs as instructed every 4 hours as needed for wheezing/shortness of breath. Cholecalciferol, Vitamin D3, 125 mcg (5,000 unit) cap Take 5,000 Units by mouth once daily. No current facility-administered medications on file prior to visit. Social History Social History Tobacco Use Smoking status: Every Day Years: 60 Types: Cigarettes Last attempt to quit: 02/03/2019 Years since quittin.9 Smokeless tobacco: Never Vaping Use Vaping Use: Never used Substance Use Topics Alcohol use: Yes Alcohol/week: 7.0 standard drinks of alcohol Types: 7 Cans of Beer (12oz) per week Drug use: Never Review of Symptoms REVIEW OF SYSTEMS GENERAL: No weight loss, malaise or fevers RESPIRATORY: See HPI CARDIOVASCULAR: Negative for chest pain, leg swelling, hypertension, CHF or palpitations GI: No nausea, vomiting, or diarrhea SKIN: Negative for lesions, rash, and itching EXAM: BP 124/62 Pulse 61 Resp 20 Wt 60.1 kg (132 lb 6.4 oz) SpO2 95% BMI 18.47 kg/m? General Appearance: Well appearing, alert, in no acute distress, well-hydrated, well nourished.. Skin: Skin color, texture, turgor normal, no suspicious rashes or lesions. Lungs: faint scattered wheezing bilaterally with good air entry. No rales, rhonchi or consolidation. Heart: RRR without murmur, gallop, or rubs. No ectopy. Abdomen: Normal abdominal exam, Abdomen soft, non-tender. Bowel so (more content not included)... [facility] 01-13-2024 Miscellaneous Notes Patient has been identified by name and date of : Yes, Provider Ayo Date 01/13/2024 Time 5:10 Daughter phones for refill(s): Requested Prescriptions Pending Prescriptions Disp Refills amLODIPine (NORVASC) 5 mg tablet 90 tablet 1 Sig: Take 1 tablet by mouth once daily. doxazosin (CARDURA) 1 mg tablet 90 tablet 1 Sig: Take 1 tablet by mouth daily at bedtime. carvedilol (COREG) 12.5 mg tablet 180 tablet 1 Sig: Take 1 tablet by mouth two times a day with meals. lisinopril (ZESTRIL) 40 mg tablet 90 tablet 1 Sig: Take 1 tablet by mouth once daily. atorvastatin (LIPITOR) 40 mg tablet 90 tablet 1 Sig: Take 1 tablet by mouth daily at bedtime. apixaban (ELIQUIS) 2.5 mg tab(s) 180 tablet 1 Sig: Take 1 tablet by mouth two times a day. fluticasone-vilanterol (BREO ELLIPTA) 100-25 mcg/dose inhaler 60 Each 5 Sig: Inhale 1 Inhalation as instructed once daily. Date of last office visit in primary care: 07/09/2023 Date of next office visit in primary care: 01/30/2024 Please fill josé luis, pt going out of town Friday AM Please advise. Thank you. Honey Christie. documented in this encounter [facility] 11-07-2023 Note HNO ID: [id number] Author: MAKAYLA GAMA APRN.[employer] Service: ? Author Type: Nurse Practitioner Type: Progress Notes Filed: 11/07/2023 11:13 Note Text: Juli Shook is a 78 year old male who presents today for evaluation of Patient presents with: Follow Up Benign Prostatic Hypertrophy CHIEF COMPLAINT AND HISTORY OF PRESENT ILLNESS CC: follow up 78 year old male with history of CAD, HTN, BPH presents for follow up. Overall he is feeling well, denies dysuria, gross hematuria. Currently taking doxazosin 1 mg at bedtime DTF 5 times NTF 1-2 times but typically once Denies straining to void Stream strong PVR 0 cc was 40 cc was 147 cc at last office visit creatinine 1.09 Last UTI October 2022 Past Urological History: Stones:no Surgery:no Tumors:no Infections:yes: last uti 2022 Family History of prostate Ca:no VITALS: Weight 60.3 kg (133 lb). ALLERGIES: Sulfa (Sulfonamide Antibiotics), Heparin, and Integrilin [Eptifibatide] MEDICATIONS: Current Outpatient Medications Medication Sig Dispense Refill lisinopril (ZESTRIL) 40 mg tablet Take 1 tablet by mouth once daily. 90 tablet 1 fluticasone-vilanterol (BREO ELLIPTA) 100-25 mcg/dose inhaler Inhale 1 Inhalation as instructed once daily. 60 Each 5 amLODIPine (NORVASC) 5 mg tablet Take 1 tablet by mouth once daily. 90 tablet 1 apixaban (ELIQUIS) 2.5 mg tab(s) Take 1 tablet by mouth two times a day. 180 tablet 1 atorvastatin (LIPITOR) 40 mg tablet Take 1 tablet by mouth daily at bedtime. 90 tablet 1 busPIRone (BUSPAR) 5 mg tablet Take 1 tablet by mouth once daily. 90 tablet 1 carvedilol (COREG) 12.5 mg tablet Take 1 tablet by mouth two times a day with meals. 180 tablet 1 doxazosin (CARDURA) 1 mg tablet Take 1 tablet by mouth daily at bedtime. 90 tablet 1 albuterol HFA (VENTOLIN HFA) 90 mcg/actuation inhaler Inhale 2 Puffs as instructed every 4 hours as needed for wheezing/shortness of breath. 1 Each 2 Cholecalciferol, Vitamin D3, 125 mcg (5,000 unit) cap Take 5,000 Units by mouth once daily. No current facility-administered medications for this visit. SOCIAL HISTORY: Social History Tobacco Use Smoking status: Every Day Years: 60 Types: Cigarettes Last attempt to quit: 02/03/2019 Years since quittin.7 Smokeless tobacco: Never Vaping Use Vaping Use: Never used Substance Use Topics Alcohol use: Yes Alcohol/week: 7.0 standard drinks of alcohol Types: 7 Cans of Beer (12oz) per week Drug use: Never PAST MEDICAL HISTORY: PAST MEDICAL HISTORY Diagnosis Date Colon polyps Dr. Avalos COPD (chronic obstructive pulmonary disease) ([facility]) 01/27/2023 moderately severe Coronary artery disease Dr. Bower DVT (deep venous thrombosis) ([facility]) multiple Dyslipidemia Factor V Leiden (HCC) def Hypercoagulable state (HCC) possible factor V homozygous Hypertension Intracranial aneurysm Intracranial hemorrhage ([facility]) 2015, 12/2018 Dr. Daniel Memory impairment Dr. Leong Pulmonary embolism ([facility]) S/P IVC filter 2016 Thyroid nodule 12/20/2022 US at [facility] showed 2.7 cm nodule on right lobe PAST SURGICAL HISTORY: PAST SURGICAL HISTORY Procedure Laterality Date COLONOSCOPY Last done age 69 or 70 with polyps. told he would not need follow up IVC FILTER PLACEMENT/REMOVAL 2016 STENT 1999, 2001 Cardiac x2 THORACENTESIS 2003 TONSILLECTOMY AND ADENOIDECTOMY HX childhood FAMILY HISTORY: FAMILY HISTORY Problem Relation Age of Onset Hypertension Father other (hypercoagulable state) Father other (hypercoagulable state) Other other (hypercoagulable state) Grandchild Thyroid Daughter other (factor v) Son All histories reviewed on this date 11/07/2023: Yes REVIEW OF SYSTEMS: CONSTITUTIONAL: Patient reports no recent fever or weight loss CARDIOVASCULAR: Negative for chest pain. RESPIRATORY: Negative for cough, hemoptysis, wheezing, COPD, dyspnea or shortness of breath MUSCULOSKELETAL: denies back pain or muscular weakness All other systems reviewed and are negative other than HPI. RADIOLOGY REPORTS REVIEWED: Yes LAB RESULTS REVIEWED: Yes IMAGING STUDIES INDEPENDENTLY REVIEWED: No OLD RECORDS REVIEWED: Yes: Extensive: No PHYSICAL EXAM: constitutional: appears healthy in no acute distress respiratory: normal respiratory motion Neuro: use of walker ASSESSMENT/PLAN: ASSESSMENT/PLAN: 1. BPH with obstruction/lower urinary tract symptoms - ICD9: 600.01, 599.69, ICD10: N40.1, N13.8 -PVR 0 cc -stable LUTS -continue taking doxazosin 1 mg at bedtime, no refills needed -follow up in one year - BLADDER SCAN Patient is instructed to schedule a follow up in 12 months Makayla Gama APRN.[facility] 08-01-2023 Miscellaneous Notes Patient last visit 07/09/23 Follow up appointment scheduled 01/09/24 Yvonne Bartlett Ma Patient has been identified by name and date of : Yes Requested Prescriptions Pending Prescriptions Disp Refills lisinopril (ZESTRIL) 40 mg tablet 90 tablet 1 Sig: Take 1 tablet by mouth once daily. fluticasone-vilanterol (BREO ELLIPTA) 100-25 mcg/dose inhaler 60 Each 5 Sig: Inhale 1 Inhalation as instructed once daily. RX INSTRUCTIONS: Patient aware RX will be sent to pharmacy. No need to notify patient. Shantel Neal documented in this encounter [facility] 07-09-2023 History of Present illness Narrative 07/09/2023 Patient presents with: F/U 3 Month Call Jayjay aceves with results SUBJECTIVE: This is a 77 year old, accompanied by daughter in law, that is here today for Above Complaints. Since last office visit has been in good COPD: using inhalers as prescribed. Rare use of albuterol inhaler. Admits to some SOB when walking to his barn. Denies dyspnea, wheezing, coughing or orthopnea. Still taking small hit from his pipe a few times a day CAD: follows with [facility]. Last appointment in December with one upcoming. No medication changes at that time. Taking medications as prescribed. Denies bleeding symptoms, chest pain, palpitations, or leg swelling Following with Dr. Leong, neurology, for memory impairment. Follows with urology for hx of BPH. Last office visit 04/25/2023. No medication changes at that time. Denies weak stream, straining to urinate, dysuria, nocturia, urinary frequency, urgency or hematuria Reports he fell a couple of months ago and hit his upper back on the bathroom sink. Was twisting and lost his balance. Was not seen for fall. Denies hitting head or LOC. Admits to some achiness to area. HYPERLIPIDEMIA: Patient is taking medications: Yes. Patient is watching diet: Yes. Patient denies myalgias: Yes. Patient denies gi upset: Yes HTN: Patient is compliant with meds Yes Monitors bp at home: No. Denies side effects: No. Chest pain: No. Dyspnea: No. Edema: No. Palpitations: No. Syncope: No. Headache: No. Dizziness: No. PAST MEDICAL HISTORY Diagnosis Date Colon polyps Dr. Avalos COPD (chronic obstructive pulmonary disease) ([facility]) 01/27/2023 moderately severe Coronary artery disease Dr. Bower DVT (deep venous thrombosis) ([facility]) multiple Dyslipidemia Factor V Leiden (HCC) def Hypercoagulable state (HCC) possible factor V homozygous Hypertension Intracranial aneurysm Intracranial hemorrhage ([facility]) 2015, 12/2018 Dr. Daniel Memory impairment Dr. Leong Pulmonary embolism ([facility]) S/P IVC filter 2015 Thyroid nodule 12/20/2022 US at [facility] showed 2.7 cm nodule on right lobe ALLERGIES Sulfa (Sulfonamide Antibiotics), Heparin, and Integrilin [Eptifibatide] MEDICATIONS Current Outpatient Medications Medication Sig amLODIPine (NORVASC) 5 mg tablet Take 1 tablet by mouth once daily. atorvastatin (LIPITOR) 40 mg tablet Take 1 tablet by mouth daily at bedtime. busPIRone (BUSPAR) 5 mg tablet Take 1 tablet by mouth once daily. carvedilol (COREG) 12.5 mg tablet Take 1 tablet by mouth twice daily with meals. doxazosin (CARDURA) 1 mg tablet Take 1 tablet by mouth daily at bedtime. apixaban (ELIQUIS) 2.5 mg tab(s) Take 1 tablet by mouth twice daily. lisinopril (ZESTRIL) 40 mg tablet Take 1 tablet by mouth once daily. fluticasone-vilanterol (BREO ELLIPTA) 100-25 mcg/dose inhaler Inhale 1 Inhalation as instructed once daily. albuterol HFA (VENTOLIN HFA) 90 mcg/actuation inhaler Inhale 2 Puffs as instructed every 4 hours as needed for wheezing/shortness of breath. Cholecalciferol, Vitamin D3, 125 mcg (5,000 unit) cap Take 5,000 Units by mouth once daily. No current facility-administered medications for this visit. Medications and allergies reviewed by this provider. SOCIAL HISTORY Social History Tobacco Use Smoking status: Every Day Years: 60 Types: Cigarettes Last attempt to quit: 02/03/2019 Years since quittin.4 Smokeless tobacco: Never Vaping Use Vaping Use: Never used Substance Use Topics Alcohol use: Yes Alcohol/week: 17.5 standard drinks of alcohol Types: 7 Cans of Beer (12oz) per week Drug use: Never REVIEW OF SYSTEMS All other reviewed and negative other than HPI. OBJECTIVE: BP 142/82 Pulse (!) 59 Resp 20 Wt 62.7 kg (138 lb 3.2 oz) SpO2 97% BMI 19.27 kg/m . Vital signs reviewed by this provider. APPEARANCE Well appearing, alert, in no acute distress, well-hydrated, well nourished. EYES conjunctiva and sclera normal. BACK: no obvious deformity, TTP, swelling or ecchymosis. FROM without pain HEART RRR with normal S1 and S2, no murmurs, no gallops, no JVD appreciated LUNG clear to auscultation. No wheezes, rhonchi or rales EXTREMITIES Extremities normal, No deformities, No skin discoloration, and No edema SKIN Skin color, texture, turgor normal, no suspicious rashes or lesions to exposed skin Component Latest Ref Rng & Units 04/04/2023 WBC 3.70 - 11.00 k/uL 7.28 RBC 4.20 - 6.00 m/uL 5.39 Hemoglobin 13.0 - 17.0 g/dL 15.7 Hematocrit 39.0 - 51.0 % 49.6 MCV 80.0 - 100.0 fL 92.0 MCH 26.0 - 34.0 pg 29.1 MCHC 30.5 - 36.0 g/dL 31.7 RDW-CV 11.5 - 15.0 % 13.6 Platelet Count 150 - 400 k/uL 249 MPV 9.0 - 12.7 fL 11.6 Neut% % 54.2 Abs Neut (ANC) 1.45 - 7.50 k/uL 3.95 Lymph% % 31.5 Abs Lymph 1.00 - 4.00 k/uL 2.29 Emmet% % 9.2 Abs Emmet <0.87 k/uL 0.67 Eosin% % 4.0 Abs Eosin <0.46 k/uL 0.29 Baso% % 1.0 Abs Baso <0.11 k/uL 0.07 Immature Gran % % 0.1 IMMATURE GRANS (ABS) <0.10 k/uL <0.03 NRBC /100 WBC 0.0 Absolute nRBC <0.01 k/uL <0.01 DTYPE Auto Protein, Total 6.3 - 8.0 g/dL 6.5 Albumin 3.9 - 4.9 g/dL 3.8 (L) Calcium 8.5 - 10.2 mg/dL 9.0 Bilirubin, Total 0.2 - 1.3 mg/dL 0.7 Alkaline Phosphatase 38 - 113 U/L 97 AST 14 - 40 U/L 32 ALT 10 - 54 U/L 25 Glucose 74 - 99 mg/dL 85 BUN 9 - 24 mg/dL 13 Creatinine 0.73 - 1.22 mg/dL 1.09 Sodium 136 - 144 mmol/L 140 Potassium 3.7 - 5.1 mmol/L 4.6 Chloride 97 - 105 mmol/L 107 (H) CO2 22 - 30 mmol/L 23 Anion Gap 9 - 18 mmol/L 10 eGFR >=60 mL/min/1.73m 69 Component Latest Ref Rng & Units 10/16/2022 Total Cholesterol, Nonfasting <200 mg/dL 190 Triglycerides, Nonfasting <150 mg/dL 88 HDL Cholesterol, Nonfasting >39 mg/dL 67 LDL Cholesterol, Nonfasting <100 mg/dL 105 (H) Non HDL Cholesterol, Nonfasting <130 mg/dL 123 VLDL Cholesterol, Nonfasting <30 mg/dL 18 Total Chol/HDL Ratio, Nonfasting <5.10 mg/dL 2.84 LDL/HDL Ratio, Nonfasting <2.54 mg/dL 1.57 BP Controlled (<130/80) Never done Shingrix Vaccine(1 of 2) Never done DTaP,Tdap,Td Vaccine(1 - Tdap) due on 05/06/2019 Advance Directive Discussion Never done Depression Assessment due on 10/27/2022 Covid-19 Vaccine(5 - Pfizer series) due on 12/24/2022 Pneumococcal Vaccine: 65+(2 - PCV) due on 08/21/2023 LDL Cholesterol due on 10/16/2023 Annual PCP Team Chronic Disease Visit due on 07/09/2024 Diabetes Screening due on 04/04/2026 Influenza Vaccine Completed Colorectal Cancer Screening Discontinued ASSESSMENT/PLAN: 1. Primary hypertension - ICD9: 401.9, ICD10: I10 (primary diagnosis) - slightly above goal of 130/80 - Continue current medications - Recommend home blood pressure monitoring, to bring results to next visit - Encouraged sodium restriction, DASH or Mediterranean diet - Recommend regular aerobic exercise - Smoking cessation encouraged; discussed risks to health and quitting strategies. Patient is not ready to quit - Follow up in 6 months for hypertension visit 2. Encounter for immunization - ICD9: V03.89, ICD10: Z23 - INFLUENZA VACCINE, PRSV FREE, AGE 65+ YR, HIGH DOSE, QUADRIVALENT (FLUZONE HIGH-DOSE) 3. Coronary artery disease involving [place] coronary artery of [place] heart without angina pectoris - ICD9: 414.01, ICD10: I25.10 - stable on current regime - follow-up with cardiology as scheduled 4. Memory impairment - ICD9: 780.93, ICD10: R41.3 -stable - follow-up with neurology as recommended 5. Tobacco use - ICD9: 305.1, ICD10: Z72.0 - Cessation encouraged. - Physiologic and physical aspects of tobacco addiction as well as strategies for quitting were discussed. - Counseling was given focusing on the harmful effects of this addiction especially given the patient's medical condition(s) which will be worsened because of the chemicals in tobacco. 6. Hypercoagulable state (HCC) - ICD9: 289.81, ICD10: D68.59 - continue eliquis - follow-up with cardiology as scheduled 7. Chronic obstructive pulmonary disease, unspecified COPD type (HCC) - ICD9: 496, ICD10: J44.9 - stable on current regime - continue inhalers 8. Pure hypercholesterolemia - ICD9: 272.0, ICD10: E78.00 - continue atorvastatin 9. Benign prostatic hyperplasia, unspecified whether lower urinary tract symptoms present - ICD9: 600.00, ICD10: N40.0 - stable on current regime - follow-up with urology as recommended 10. Upper back pain - ICD9: 724.5, ICD10: M54.9 - declined xray - normal exam - may use OTC oral and topical pain relievers as directed on packaging - follow-up if symptoms fail to improve Shantel Chadwick, [employer]IL DIST[employer]BUTION [employer]AM[employer]ER.[employer] Prescription instructions reviewed with patient as applicable. Patient advised if symptoms do not improve or if symptoms worsen sooner, to contact their primary care physician. Potential red flag symptoms discussed with the patient. Reviewed appropriate action plan to take if red flag symptoms occur. Patient agreeable to treatment plan. I spent a total of 30 minutes on the date of the service which included preparing to see the patient, [id number] patient care, completing clinical documentation, obtaining and/or reviewing separately obtained history, performing a medically appropriate examination, counseling and educating the patient/family/caregiver, and ordering medications, tests, or procedures. documented in this encounter [facility] 04-25-2023 History of Present illness Narrative Juli Shook is a 77 year old male who presents today for evaluation of Patient presents with: Follow Up Benign Prostatic Hypertrophy CHIEF COMPLAINT & HISTORY OF PRESENT ILLNESS CC: follow up 77 year old male with history of CAD, HTN history IC hemorrhage, BPH with retention presents for follow up. Overall he is feeling well, denies dysuria, gross hematuria. Currently taking doxazosin 1 mg at bedtime DTF 5 times NTF 1 Denies straining to void Stream strong PVR 40 cc was 147 cc at last office visit creatinine 1.09 Last UTI October 2022 Past Urological History: Stones:no Surgery:no Tumors:no Infections:yes: last uti 2022 Family History of prostate Ca:no VITALS: Weight 64 kg (141 lb). ALLERGIES: Sulfa (Sulfonamide Antibiotics), Heparin, and Integrilin [Eptifibatide] MEDICATIONS: Current Outpatient Medications Medication Sig Dispense Refill amLODIPine (NORVASC) 5 mg tablet Take 1 tablet by mouth once daily. 90 tablet 1 atorvastatin (LIPITOR) 40 mg tablet Take 1 tablet by mouth daily at bedtime. 90 tablet 1 busPIRone (BUSPAR) 5 mg tablet Take 1 tablet by mouth once daily. 90 tablet 1 carvedilol (COREG) 12.5 mg tablet Take 1 tablet by mouth twice daily with meals. 180 tablet 1 doxazosin (CARDURA) 1 mg tablet Take 1 tablet by mouth daily at bedtime. 90 tablet 1 apixaban (ELIQUIS) 2.5 mg tab(s) Take 1 tablet by mouth twice daily. 180 tablet 1 lisinopril (ZESTRIL) 40 mg tablet Take 1 tablet by mouth once daily. 90 tablet 1 fluticasone-vilanterol (BREO ELLIPTA) 100-25 mcg/dose inhaler Inhale 1 Inhalation as instructed once daily. 60 Each 5 albuterol HFA (VENTOLIN HFA) 90 mcg/actuation inhaler Inhale 2 Puffs as instructed every 4 hours as needed for wheezing/shortness of breath. 1 Each 2 Cholecalciferol, Vitamin D3, 125 mcg (5,000 unit) cap Take 5,000 Units by mouth once daily. No current facility-administered medications for this visit. SOCIAL HISTORY: Social History Tobacco Use Smoking status: Every Day Years: 60.00 Types: Cigarettes Last attempt to quit: 02/03/2019 Years since quittin.2 Smokeless tobacco: Never Vaping Use Vaping Use: Never used Substance Use Topics Alcohol use: Yes Alcohol/week: 17.5 standard drinks Types: 7 Cans of Beer (12oz) per week Drug use: Never PAST MEDICAL HISTORY: PAST MEDICAL HISTORY Diagnosis Date Colon polyps Dr. Avalos COPD (chronic obstructive pulmonary disease) ([facility]) 01/27/2023 moderately severe Coronary artery disease Dr. Bower DVT (deep venous thrombosis) ([facility]) multiple Dyslipidemia Factor V Leiden ([facility]) def Hypercoagulable state ([facility]) possible factor V homozygous Hypertension Intracranial aneurysm Intracranial hemorrhage ([facility]) 12/2018 Dr. Daniel Memory impairment Dr. Leong Pulmonary embolism ([facility]) S/P IVC filter 2016 Thyroid nodule 12/20/2022 US at [facility] showed 2.7 cm nodule on right lobe PAST SURGICAL HISTORY: PAST SURGICAL HISTORY Procedure Laterality Date COLONOSCOPY Last done age 69 or 70 with polyps. told he would not need follow up IVC FILTER PLACEMENT/REMOVAL 2016 STENT 1999, 2001 Cardiac x2 THORACENTESIS 2003 TONSILLECTOMY AND ADENOIDECTOMY HX childhood FAMILY HISTORY: FAMILY HISTORY Problem Relation Age of Onset Hypertension Father other (hypercoagulable state) Father other (hypercoagulable state) Other other (hypercoagulable state) Grandchild Thyroid Daughter other (factor v) Son All histories reviewed on this date 04/25/2023: Yes REVIEW OF SYSTEMS: CONSTITUTIONAL: Patient reports no recent fever or weight loss CARDIOVASCULAR: Negative for chest pain. RESPIRATORY: Negative for cough, hemoptysis, wheezing, COPD, dyspnea or shortness of breath GI: loose stool MUSCULOSKELETAL: denies back pain or muscular weakness All other systems reviewed and are negative other than HPI. RADIOLOGY REPORTS REVIEWED: Yes LAB RESULTS REVIEWED: Yes IMAGING STUDIES INDEPENDENTLY REVIEWED: No OLD RECORDS REVIEWED: Yes: Extensive: No PHYSICAL EXAM: constitutional: appears healthy in no acute distress respiratory: normal respiratory motion Neuro: use of walker ASSESSMENT/PLAN: ASSESSMENT/PLAN: 1. BPH with obstruction/lower urinary tract symptoms - ICD9: 600.01, 599.69, ICD10: N40.1, N13.8 -stable LUTS -PVR 40 c -continue with cardura 1 mg at bedtime -contact our office with any concerns -follow up in 6 months for PVR - BLADDER SCAN Patient is instructed to schedule a follow up in 6 months Makayla Gama APRN.[employer] documented in this encounter [facility] 04-25-2023 Nurse Note Adder scan obtained 40 ml of urine documented in this encounter [facility] 02-24-2023 Miscellaneous Notes Would patient like to come in for OV to address fall and fall risk? Juan from [facility] calling again to add to previous message below. Juan states during discharge of services for patient today, patient mentioned that he had a fall sometime last week. Patient was outside walking on a plastic pallet and fell onto his buttocks. Denies any injury and denies hitting head. Araceli Sawyer RN Reviewed. Juan from [facility] calls and states that they have been monitoring patient since patient was discharged from hospital. Patient is doing fine and patient is stable. Juan states that they will be discharging patent from services today. Margo Solo RN documented in this encounter [facility] 01-31-2023 History of Present illness Narrative Juli Shook 1945 REFERRING PHYSICIAN: Ender Rollins,* CHIEF COMPLAINT: Consult (Abnormal thyroid ultrasound.) HPI: The patient is a 77 year old male presents with abnormal ultrasound of thyroid. This US was obtained from [facility] - 12/20/2022 - 2.7 cm thyroid nodule He notes no thyroid cancer in family. He denies unusual XRT exposure, denies swalllowing difficulties, denies globus symptoms. 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 He was told he was coming for a procedure today, but he is on Eliquis. He had been on warfarin prior to a few months ago PAST MEDICAL HISTORY Diagnosis Date Colon polyps Dr. Avalos COPD (chronic obstructive pulmonary disease) ([facility]) 01/27/2023 moderately severe Coronary artery disease Dr. Bower DVT (deep venous thrombosis) ([facility]) multiple Dyslipidemia Factor V Leiden ([facility]) def Hypercoagulable state ([facility]) possible factor V homozygous Hypertension Intracranial aneurysm Intracranial hemorrhage ([facility]) 2015, 12/2018 Dr. Daniel Memory impairment Dr. Leong Pulmonary embolism ([facility]) S/P IVC filter 2016 Thyroid nodule 12/20/2022 US at [facility] showed 2.7 cm nodule on right lobe PAST SURGICAL HISTORY Procedure Laterality Date COLONOSCOPY Last done age 69 or 70 with polyps. told he would not need follow up IVC FILTER PLACEMENT/REMOVAL 2016 STENT 1999, 2001 Cardiac x2 THORACENTESIS 2003 TONSILLECTOMY AND ADENOIDECTOMY HX childhood Current Outpatient Medications Medication Sig amLODIPine (NORVASC) 5 mg tablet Take 1 tablet by mouth once daily. atorvastatin (LIPITOR) 40 mg tablet Take 1 tablet by mouth daily at bedtime. busPIRone (BUSPAR) 5 mg tablet Take 1 tablet by mouth once daily. carvedilol (COREG) 12.5 mg tablet Take 1 tablet by mouth twice daily with meals. doxazosin (CARDURA) 1 mg tablet Take 1 tablet by mouth daily at bedtime. apixaban (ELIQUIS) 2.5 mg tab(s) Take 1 tablet by mouth twice daily. lisinopril (ZESTRIL) 40 mg tablet Take 1 tablet by mouth once daily. fluticasone-vilanterol (BREO ELLIPTA) 100-25 mcg/dose inhaler Inhale 1 Inhalation as instructed once daily. albuterol HFA (VENTOLIN HFA) 90 mcg/actuation inhaler Inhale 2 Puffs as instructed every 4 hours as needed for wheezing/shortness of breath. Cholecalciferol, Vitamin D3, 125 mcg (5,000 unit) cap Take 5,000 Units by mouth once daily. ALLERGIES: Sulfa (Sulfonamide Antibiotics), Heparin, and Integrilin [Eptifibatide] PERSONAL HISTORY: Social History Tobacco Use Smoking status: Former Years: 60.00 Types: Cigarettes Quit date: 02/03/2019 Years since quittin.9 Smokeless tobacco: Never Vaping Use Vaping Use: Never used Substance Use Topics Alcohol use: Yes Alcohol/week: 17.5 standard drinks Types: 7 Cans of Beer (12oz) per week Drug use: Never FAMILY HISTORY Problem Relation Age of Onset Hypertension Father other (hypercoagulable state) Father other (hypercoagulable state) Other other (hypercoagulable state) Grandchild Thyroid Daughter other (factor v) Son The review of systems data was entered by the nurse and reviewed by il Nursing Notes: Siria Butts RN 01/31/2023 3:46 PM Signed REVIEW OF SYSTEMS: General: The patient denies fatigue, denies weight loss, denies weight gain, denies feeling hot, and denies feelings of cold. Eyes: The patient denies glaucoma, denies eye injury/surgery, wears glasses or contacts. Ear/Nose/Throat: The patient NOTES allergies, denies hayfever, denies ear infections, and denies bloody noses. Cardiovascular: The patient denies chest pain, NOTES heart disease, NOTES high blood pressure,NOTES cardiac stent, denies prior heart attack, denies irregular heart beat, NOTES high cholesterol, NOTES poor circulation, denies heart failure, other cardiac issues, denies claudication, denies cold feet, denies peripheral arterial stent. Respiratory: The patient denies tuberculosis, NOTES pneumonia, denies frequent cough, NOTES pulmonary embolism, denies shortness of breath, denies coughing up blood and NOTES COPD. Gastrointestinal: The patient denies difficulty swallowing, denies acid reflux, denies ulcers, denies vomiting, denies jaundice/hepatitis, denies gallbladder problems, denies black or tarry stools, denies hemorrhoids, denies bleeding from rectum, denies diverticulitis, denies constipation, denies diarrhea, denies loss of stool control, and denies hernias. Kidney/Bladder: The patient denies kidney stones, denies urine infections, and denies bloody urine. Skin: The patient denies a history of skin cancer, denies bleeding/changing moles, and denies a history of skin rash. Neurologic: The patient denies a history of epilepsy/convulsions, NOTES headaches, denies head/spinal injuries, and NOTES stroke/TIA. Psychiatric: The patient denies psychiatric medications, denies depression, and denies voices, denies substance abuse. Endocrine: The patient NOTES thyroid disorders, denies diabetes, and denies hormonal problems. Hematologic: The patient NOTES a history of bruising, denies bleeding, denies anemia, NOTES blood clots and NOTES IVC filter. Infections: The patient denies a history of measles and mumps, denies rheumatic fever, and denies sexually transmitted diseases. Musculoskeletal: The patient denies back pain/injury, denies back problems, denies sciatica, denies knee/foot trouble, denies arthritis, or denies gout. When was patient's last Mammogram screening? N/A Last Colonoscopy: unknown Siria Butts RN PHYSICAL EXAMINATION: General: The patient is 77 year old male, well nourished, well hydrated in no acute distress. The patient is oriented to time, place, and person. VITALS: Blood pressure 128/72, pulse 76, temperature 36.6 C (97.9 F), height 180.3 cm (5' 11 ), weight 63.4 kg (139 lb 12.8 oz), SpO2 98 %. Body mass index is 19.5 kg/m . Head: Normal cephalic, atraumatic Eyes: pupils are equally round, sclera are clear/anicteric, wearing glasses Neck is supple with no tracheal deviation, no masses noted Respiratory: Normal respiratory excursion and pattern. Abdominal exam: benign Extremities: no clubbing, cyanosis or edema. Neuro: non focal Psych: normal mood Assessment IMPRESSION: abnormal ultrasound of thyroid PLAN: I have discussed the above with the patient with his daughter on phone and daughter in law with patient here I have offered US guided FNA of thyroid nodule.. I have explained the procedure to the patient. To be done in the office using local anesthesia. Patient is required to be off his anticoagulation for this procedure. I have counseled the patient as to the risks of the procedure, including but not limited to: infection, bleeding, injury to any blood vessels/nerves, scar tissue, wound infections, complications of anesthesia, etc. - the patient understands. At this point in time, the patient defers this procedure. He will continue discussion with his family. I have answered all questions to the patient s satisfaction and the patient has no further questions. I have confirmed and edited as necessary, the PFSH and ROS obtained by others. Consultation requested by Dr. Ender Rollins for an opinion regarding patient's abnormal ultrasound of thyroid. My final recommendations will be communicated back to the requesting physician by way of shared Medical record or letter to requesting physician via US mail. . Diagnoses: (E04.1) Thyroid nodule Return to Clinic: The patient is instructed to follow-up with me as per needed. I spent a total of 32 minutes on the date of the service which included preparing to see the patient with review of any pertinent laboratory studies/radiological imaging/medical records, [id number] patient care, obtaining oral medical history from the patient in this encounter, performing a medically appropriate examination, counseling and educating the patient/family/caregiver, and completing appropriate medical documentation. Tami Chakraborty MD documented in this encounter [facility] 01-31-2023 Nurse Note REVIEW OF SYSTEMS: General: The patient denies fatigue, denies weight loss, denies weight gain, denies feeling hot, and denies feelings of cold. Eyes: The patient denies glaucoma, denies eye injury/surgery, wears glasses or contacts. Ear/Nose/Throat: The patient NOTES allergies, denies hayfever, denies ear infections, and denies bloody noses. Cardiovascular: The patient denies chest pain, NOTES heart disease, NOTES high blood pressure,NOTES cardiac stent, denies prior heart attack, denies irregular heart beat, NOTES high cholesterol, NOTES poor circulation, denies heart failure, other cardiac issues, denies claudication, denies cold feet, denies peripheral arterial stent. Respiratory: The patient denies tuberculosis, NOTES pneumonia, denies frequent cough, NOTES pulmonary embolism, denies shortness of breath, denies coughing up blood and NOTES COPD. Gastrointestinal: The patient denies difficulty swallowing, denies acid reflux, denies ulcers, denies vomiting, denies jaundice/hepatitis, denies gallbladder problems, denies black or tarry stools, denies hemorrhoids, denies bleeding from rectum, denies diverticulitis, denies constipation, denies diarrhea, denies loss of stool control, and denies hernias. Kidney/Bladder: The patient denies kidney stones, denies urine infections, and denies bloody urine. Skin: The patient denies a history of skin cancer, denies bleeding/changing moles, and denies a history of skin rash. Neurologic: The patient denies a history of epilepsy/convulsions, NOTES headaches, denies head/spinal injuries, and NOTES stroke/TIA. Psychiatric: The patient denies psychiatric medications, denies depression, and denies voices, denies substance abuse. Endocrine: The patient NOTES thyroid disorders, denies diabetes, and denies hormonal problems. Hematologic: The patient NOTES a history of bruising, denies bleeding, denies anemia, NOTES blood clots and NOTES IVC filter. Infections: The patient denies a history of measles and mumps, denies rheumatic fever, and denies sexually transmitted diseases. Musculoskeletal: The patient denies back pain/injury, denies back problems, denies sciatica, denies knee/foot trouble, denies arthritis, or denies gout. When was patient's last Mammogram screening? N/A Last Colonoscopy: unknown Siria Butts RN documented in this encounter [facility] 01-29-2023 Miscellaneous Notes Patient aware. New TE opened 01/27/23 with other results. Yamini Beyer LPN Attempted to contact pt's as asked by pt, called 3X, each time phone is picked up then hung back up. Will need to try again. Yun Newton LPN Patient telephoned, patient answered. States is sound asleep at the moment. Patient is very hard of hearing. Please try calling back. Yamini Beyer LPN ----- Message from Ender Rollins MD sent at 01/22/2023 4:25 PM EDT ----- Chest xray negative for pneumonia. Recommend he continue with albuterol PRN for cough/wheeze/SOB and OTC delsym for cough or mucinex for chest congestion. Call if cough worsening. documented in this encounter [facility] 01-29-2023 Miscellaneous Notes Pt. informed. Message left for patient/spouse to return call for update regarding results/orders. Phoned patient's and full unable to leave . PFTs shows moderately severe COPD which is improved by bronchodilator. Recommend adding on combination inhaler he would use every day to help prevent cough, wheezing, and SOB. Would start on Breo daily. Please let me know if insurance not covering, or if symptoms are not improving. Would still use albuterol inhaler PRN for occasional cough/wheeze/SOB. documented in this encounter [facility] 01-27-2023 Miscellaneous Notes Attempted to contact Stacie back for further questions/review medication list - Patient recently discharged from [facility]. At [facility] with PCP, she notes that neither patient nor PCP had this information. Reviewed medication list in detail with Stacie. Pended orders are what their most recent med list from [facility] reflects. Please review and advise. Patient's next visit 04/04/23. Pt daughter notes pt having FNA this Friday. Loren Razo MA Yuval Quinones is calling to request refills of patient's meds following a hospital/rehab stay. There are 3 meds that do not have the same dosage/instructions as what we had on file. Lisinopril - We have it listed as 20 mg once a day. Daughter reports 40 mg twice a day. Buspirone - We have 5 mg twice daily. Daughter reports 5 mg once daily. Eilquis- We did not have the mg filled in. Daughter reports 2.5 mg every 12 hours. Please review and send with the other meds request. Patient currently has enough for 2 weeks. Pharmacy verified in [facility] Patient has been identified by name and date of : Yes Patient aware RX will be sent to pharmacy. No need to notify patient. Yuval Quinones phones for refill(s): Requested Prescriptions Pending Prescriptions Disp Refills amLODIPine (NORVASC) 5 mg tablet 90 tablet 1 Sig: Take 1 tablet by mouth once daily. atorvastatin (LIPITOR) 40 mg tablet 90 tablet 1 Sig: Take 1 tablet by mouth daily at bedtime. busPIRone (BUSPAR) 5 mg tablet Sig: Take 1 tablet by mouth. carvedilol (COREG) 12.5 mg tablet Sig: Take 1 tablet by mouth twice daily with meals. doxazosin (CARDURA) 1 mg tablet Sig: Take 1 tablet by mouth daily at bedtime. apixaban (ELIQUIS) 2.5 mg tab(s) Sig: Take by mouth. lisinopril (ZESTRIL) 20 mg tablet 90 tablet 1 Sig: Take by mouth once daily. Date of last office visit : 01/22/2023 Date of next office visit : 04/04/2023 Last 2 Encounter Wt Readings: Date: Wt: 01/27/2023 61.7 kg (136 lb) 01/24/2023 63.5 kg (140 lb) Please advise. Imelda Hawk Pss documented in this encounter [facility] 01-27-2023 History of Present illness Narrative PULM FUNCTION SMARTBLOCK: Provider: Ender Rollins MD Assisting Tech: HARSH Garza Spirometry w/BD: 1 documented in this encounter [facility] 01-27-2023 Miscellaneous Notes Sw spoke with patient and offered to call [facility] to see if they can assist with transportation to appts. Patient notes it would work better for him to reach out to them for assistance. Sw provided patient with ph.[phone]. Patient notes that he will let Sw know what he finds outs of regarding transportation assistance through [facility]. Sw spoke briefly with patient regarding transportation to medical appts. Patient asks that Sw call him back on Friday as he is on his way to a doctors appt and can't speak at the moment. Sw will call patient Friday,01/27/23. documented in this encounter [facility] 01-24-2023 History of Present illness Narrative Juli Shook is a 77 year old male who presents today for evaluation of Patient presents with: Follow Up: PVR CHIEF COMPLAINT & HISTORY OF PRESENT ILLNESS CC: follow up 77 year old male with history of CAD, HTN history IC hemorrhage, urine retention presents for a bladder scan. Today he reports that he is feeling well, he is voiding about 5 times per day and once at night. Denies dysuria, gross hematuria Stream is strong PVR 147 cc creatinine 0.85 Last UTI October 2022 Denies family history of prostate cancer Currently taking cardura 1 mg po daily Blood pressure has been running low Past Urological History: Stones:no Surgery:no Tumors:no Infections:yes: last uti 2022 Family History of prostate Ca:no VITALS: Height 175.3 cm (5' 9 ), weight 63.5 kg (140 lb). ALLERGIES: Sulfa (Sulfonamide Antibiotics), Heparin, and Integrilin [Eptifibatide] MEDICATIONS: Current Outpatient Medications Medication Sig Dispense Refill albuterol HFA (VENTOLIN HFA) 90 mcg/actuation inhaler Inhale 2 Puffs as instructed every 4 hours as needed for wheezing/shortness of breath. 1 Each 2 carvedilol (COREG) 12.5 mg tablet Take 12.5 mg by mouth twice daily with meals. apixaban (ELIQUIS) 2.5 mg tab(s) Take by mouth twice daily. doxazosin (CARDURA) 1 mg tablet Take 1 mg by mouth daily at bedtime. Cholecalciferol, Vitamin D3, 125 mcg (5,000 unit) cap Take 5,000 Units by mouth once daily. busPIRone (BUSPAR) 5 mg tablet Take 5 mg by mouth twice daily. atorvastatin (LIPITOR) 40 mg tablet Take 1 tablet by mouth daily at bedtime. 90 tablet 1 lisinopril (ZESTRIL, PRINIVIL) 20 mg tablet Take 1 tablet by mouth once daily. 90 tablet 1 amLODIPine (NORVASC) 5 mg tablet Take 1 tablet by mouth once daily. 90 tablet 1 No current facility-administered medications for this visit. SOCIAL HISTORY: Social History Tobacco Use Smoking status: Former Years: 60.00 Types: Cigarettes Quit date: 02/03/2019 Years since quittin.9 Smokeless tobacco: Never Vaping Use Vaping Use: Never used Substance Use Topics Alcohol use: Yes Alcohol/week: 17.5 standard drinks Types: 7 Cans of Beer (12oz) per week Drug use: Never PAST MEDICAL HISTORY: PAST MEDICAL HISTORY Diagnosis Date Colon polyps Dr. Avalos Coronary artery disease Dr. Bower DVT (deep venous thrombosis) (HCC) multiple Dyslipidemia Factor V Leiden (HCC) def Hypercoagulable state (HCC) possible factor V homozygous Hypertension Intracranial aneurysm Intracranial hemorrhage (HCC) 2015, 12/2018 Dr. Daniel Memory impairment Dr. Leong Pulmonary embolism (HCC) S/P IVC filter 2016 Thyroid nodule 12/20/2022 US at [facility] showed 2.7 cm nodule on right lobe PAST SURGICAL HISTORY: PAST SURGICAL HISTORY Procedure Laterality Date COLONOSCOPY Last done age 69 or 70 with polyps. told he would not need follow up IVC FILTER PLACEMENT/REMOVAL 2016 STENT 1999, 2001 Cardiac x2 THORACENTESIS 2003 TONSILLECTOMY AND ADENOIDECTOMY HX childhood FAMILY HISTORY: FAMILY HISTORY Problem Relation Age of Onset Hypertension Father other (hypercoagulable state) Father other (hypercoagulable state) Other other (hypercoagulable state) Grandchild Thyroid Daughter other (factor v) Son All histories reviewed on this date 01/24/2023: Yes REVIEW OF SYSTEMS: CONSTITUTIONAL: Patient reports no recent fever or weight loss CARDIOVASCULAR: Negative for chest pain. RESPIRATORY: Negative for cough, hemoptysis, wheezing, COPD, dyspnea or shortness of breath GI: loose stool MUSCULOSKELETAL: denies back pain or muscular weakness All other systems reviewed and are negative other than HPI. RADIOLOGY REPORTS REVIEWED: Yes LAB RESULTS REVIEWED: Yes IMAGING STUDIES INDEPENDENTLY REVIEWED: No OLD RECORDS REVIEWED: Yes: Extensive: No PHYSICAL EXAM: constitutional: appears healthy in no acute distress respiratory: normal respiratory motion Neuro: use of walker ASSESSMENT/PLAN: ASSESSMENT/PLAN: 1. BPH with obstruction/lower urinary tract symptoms - ICD9: 600.01, 599.69, ICD10: N40.1, N13.8 (primary diagnosis) -continue with cardura 1 mg at bedtime -PVR 147 cc -follow up in 3 months for pvr if increased then cysto 2. Urine retention - ICD9: 788.20, ICD10: R33.9 -PVR 147 cc -continue with cardura 1 mg at bedtime -I considered increasing his cardura to 2 mg but his blood pressure has been running low per his family member -PVR 3 months if increased then cystoscopy - BLADDER SCAN Patient is instructed to schedule a follow up in 3 months Makayla Gama APRN.MENDEZ documented in this encounter [facility] 01-24-2023 Nurse Note 147 mL of urine in the bladder 30 minutes after voiding Patient states he voids 5-6 times daily with no complaints. No issues with the start of Cardura.. documented in this encounter [facility] 01-22-2023 History of Present illness Narrative Chief Complaint Patient presents with: Follow Up: [facility] follow up HPI Juli Shook is a 77 year old male who presents here today for Hospital Discharge Follow up. Records are not available today. Accompanied today by his daughter who usually lives in [place]. Patient was hospitalized at [facility] in October for 2 weeks for right intracerebral hemorrhage. Hospital course below in bold: We recently had the pleasure of taking care of Juli Shook at [facility]. As you well know Juli Shook is a Rt handed 77 y.o. male with a PMHx of HTN, HLD, DVT, PE, Factor 5 Leiden deficiency (on warfarin) , Lt frontal hemorrhage () presenting as a Hemorrhagic stroke alert from [facility] for AMS. On 11/19 pt complained of severe headache and wanted to throw up. Patient was taken to [facility]. CTH showed 3cm Rt Occipital hemorrhage with extension into the Rt lateral ventricle and old L frontal/cerebellar hemispheric strokes. WBC 15.6, INR 2.9. Vitamin K given. Patient given 2 doses of Labetalol for BP in the 150s. On arrival to [facility], SBP in 180s. Glucose 111. NIHSS 0. INR 1.8 here given Kcentra. Pupils equal round and reactive to light 4-->2. HCT showed stable Rt Rt Occipital hemorrhage with extension into the Rt lateral ventricle. . 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 MRI/MRA were negative for underlying vascular lesion. Brief summary of Imaging: CTH:Stable Rt occipital hemorrhage with extension into the Rt lateral ventricle. Thin SDH, trace SAH. 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 Right thyroid lobe heterogeneous lesion MRI brain: Rt IPH w/ IVH. Scattered SAH, may be d/t chronic hemosiderin standing. Area of encephalomalacia in left frontal lobe. 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 MRA brain: No AVM or dAVF Repeat CTH 11/22 Stable ECHO TTE EF 65-70%, no significant valvular disease LDL 48, A1c 5.6 Diagnosis : R occipital IPH with IVH (ICH score 1), SDH & SAH. 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 Plan to start Eliquis 2.5 mg BID post hemorrhage day 10 on 11/30/22 (AC indicated for Factor V Leiden and history of multiple PE/DVTs) Additional medical issues: LLL Pneumonia: Treated with IV antibiotics Dysphagia and low oral intake: -cleared for regular diet with thin liquids 11/25 -Continue to encourage to eat Essential HTN (POA): -hydralazine 75 mg TID changed to Coreg 6.25 mg BID on 11/26 -continue amlodipine 10 mg and lisinopril 40 mg daily Hypercoagulable state 2/2 Factor V deficiency (POA): Multiple DVT x2/PE s/p IVC filter (POA): -Heme consulted while in ICU, recommend: -apixiban 2.5 mg po BID when able, ASA 81 mg initiated on 11/24, discontinue on day 10 post hemorrhage and start Apixiban on 11/30 -Follow up with [facility] ([phone]), appointment in 1 month. Right thyroid lobe heterogeneous lesion: Incidental seen on CTA brain/neck -OP follow up with PCP for non-emergent thyroid ultrasound Acute Urinary retention: Had high residuals on 11/27, nurses had difficulty with straight catheterization -Inserted ford -Doxazosin 1 mg daily -Will need urology follow up outpatient if unsuccessfull at voiding trials Follow up appointments or imaging. -MRI brain with and without contrast in 8-12 weeks -Neurovascular as scheduled -PCP in 1-2 weeks -Hematology in 1 month -Urology in 1-2 weeks Upon his discharge, he was transferred to at [facility] until 01/14. Underwent PT/OT because he was unable to walk on his own. Now is able to ambulate with a walker. Speech has improved. Daughter states he still has a lot of cognitive gaps. Home health will be out in the next week for repeat PT/OT evaluation. Has been following up with hematology with last OV on 12/23. They recommended he continue with his Eliquis BID due to history of VTE. Has repeat imaging and labs ordered through their office. Has not yet had biopsy of his thyroid. Needs referral order today. Appointment with cardiology and tomorrow, Urology in 2 days. No longer needing ford catheter since he passed his trial of void on 01/07. Neurology appointment with Dr. Leong in March. Patient is living at home with his . Daughter is helping now, but has to return to [place]. Patient and his are unable to drive. Son lives nearby and he and DIL will help with picking up groceries and take to some doctors appointments. Daughter spoke with a social work instructor today through [facility] about assistance with transportation, but they were not able to offer any solutions. Will be looking into [employer], but because they are on the line [facility], no one wants to service them. Complaining of wet sounding cough with chest congestion which started about a week ago. Symptoms stable. Not treating with anything OTC. Smoking a pipe about 3 times per day. Denies fever/chills, SOB, wheezing, chest pain, chest congestion. Past medical history, appointments, medications, allergies reviewed. Previous Medical History PAST MEDICAL HISTORY Diagnosis Date Colon polyps Dr. Avalos Coronary artery disease Dr. Bower DVT (deep venous thrombosis) (HCC) multiple Dyslipidemia Factor V Leiden (HCC) def Hypercoagulable state (HCC) possible factor V homozygous Hypertension Intracranial aneurysm Intracranial hemorrhage (HCC) 2015, 12/2018 Dr. Daniel Memory impairment Dr. Leong Pulmonary embolism ([facility]) S/P IVC filter 2015 Previous Surgical History PAST SURGICAL HISTORY Procedure Laterality Date COLONOSCOPY Last done age 69 or 70 with polyps. told he would not need follow up IVC FILTER PLACEMENT/REMOVAL 2016 STENT 1999, 2001 Cardiac x2 THORACENTESIS 2003 TONSILLECTOMY AND ADENOIDECTOMY HX childhood Family History FAMILY HISTORY Problem Relation Age of Onset Hypertension Father other (hypercoagulable state) Father other (hypercoagulable state) Other other (hypercoagulable state) Grandchild Thyroid Daughter other (factor v) Son Patient Allergies ALLERGIES Allergen Reactions Sulfa (Sulfonamide * Swelling Heparin Other: See Comments Patient states no reactions. Integrilin [Eptifib* Other: See Comments Patient states no reaction. Current Medications Current Outpatient Medications on File Prior to Visit Medication Sig carvedilol (COREG) 12.5 mg tablet Take 12.5 mg by mouth twice daily with meals. apixaban (ELIQUIS) 2.5 mg tab(s) Take by mouth twice daily. doxazosin (CARDURA) 1 mg tablet Take 1 mg by mouth daily at bedtime. Cholecalciferol, Vitamin D3, 125 mcg (5,000 unit) cap Take 5,000 Units by mouth once daily. busPIRone (BUSPAR) 5 mg tablet Take 5 mg by mouth twice daily. atorvastatin (LIPITOR) 40 mg tablet Take 1 tablet by mouth daily at bedtime. warfarin (COUMADIN) 5 mg tablet 7.5 mg daily or as directed (Patient not taking: Reported on 01/07/2023) lisinopril (ZESTRIL, PRINIVIL) 20 mg tablet Take 1 tablet by mouth once daily. hydroCHLOROthiazide (HYDRODIURIL, ESIDRIX) 12.5 mg capsule Take 1 capsule by mouth once daily. amLODIPine (NORVASC) 5 mg tablet Take 1 tablet by mouth once daily. No current facility-administered medications on file prior to visit. Social History Social History Tobacco Use Smoking status: Former Years: 60.00 Types: Cigarettes Quit date: 02/03/2019 Years since quittin.9 Smokeless tobacco: Never Vaping Use Vaping Use: Never used Substance Use Topics Alcohol use: Yes Alcohol/week: 17.5 standard drinks Types: 7 Cans of Beer (12oz) per week Drug use: Never Review of Symptoms REVIEW OF SYSTEMS See HPI EXAM: BP 110/70 Pulse 60 Resp 16 Wt 62.6 kg (138 lb) SpO2 98% BMI 20.38 kg/m General Appearance: Well appearing, alert, in no acute distress, well-hydrated, well nourished. Seated in wheelchair. Skin: Skin color, texture, turgor normal, no suspicious rashes or lesions. Head: Normocephalic, no masses, lesions, tenderness or abnormalities. Eyes: Anicteric sclera. Pupils are equally round and reactive to light. Extraocular movements are intact. . Ears: External ears normal, canals clear. Oropharynx: Lips, mucosa, and tongue normal, teeth and gums normal, oropharynx normal. Neck: Supple, no adenopathy; thyroid symmetric, normal size, no bruits. Lungs: Lungs clear to auscultation. No wheezing, rhonchi, rales.. Heart: RRR without murmur, gallop, or rubs. No ectopy. Abdomen: Normal abdominal exam, Abdomen soft, non-tender. Bowel sounds normal. No masses, organomegaly. Extremities: No deformities, edema, skin discoloration, clubbing or cyanosis. Good capillary refill. . Health Maintenance List SHINGRIX VACCINE(1 of 2) Never done DTAP,TDAP,TD(1 - Tdap) due on 05/06/2019 ADVANCE DIRECTIVE DISCUSSION Never done DEPRESSION ASSESSMENT due on 10/27/2022 PNEUMOCOCCAL: 65+(2 - PCV) due on 08/21/2023 ANNUAL PCP TEAM CHRONIC DISEASE VISIT due on 08/21/2023 BP CONTROLLED (<130/80) due on 08/21/2023 LDL CHOLESTEROL due on 10/16/2023 DIABETES SCREEN due on 11/20/2025 INFLUENZA Completed COVID-19 VACCINE Completed ASSESSMENT/PLAN: 1. Intracranial hemorrhage (HCC) - ICD9: 432.9, ICD10: I62.9 (primary diagnosis) Right intracranial hemorrhage in October on coumadin with therapeutic INR. Headache and confusion improving, though he still has cognitive gaps. Ambulation and strength improving after PT/OT. Continue to use walker for ambulation and will have him follow up with home PT/OT. Refer to social work instructor to help with transportation and services based [place]. Continue low dose eliquis for hypercoagulable state and follow up with hematology and neurology as scheduled. - PRIMARY CARE SOCIAL WORK CONSULT 2. Thyroid nodule - ICD9: 241.0, ICD10: E04.1 Needs biopsy for 2.[address] referral to surgery and follow up results. - CONSULT TO ENDOCRINE SURGERY - CONSULT TO GENERAL SURGERY 3. Cough in adult patient - ICD9: 786.2, ICD10: R05.9 Lung exam normal today. Obtain CXR to rule out PNA. With smoking history, will obtain PFTs and start on albuterol PRN for possible COPD. I do not feel he is in need of abx or steroid today based on his normal exam and vitals. - XR CHEST 2V FRONTAL/LAT - SPIROMETRY - BASELINE AND POST DILATOR - ALBUTEROL SULFATE HFA 90 MCG/ACTUATION AEROSOL INHALER - XR CHEST 2V FRONTAL/LAT 4. Hypercoagulable state (HCC) - ICD9: 289.81, ICD10: D68.59 See above 5. Factor 5 Leiden mutation, heterozygous (HCC) - ICD9: 289.81, ICD10: D68.51 See above 6. Memory impairment - ICD9: 780.93, ICD10: R41.3 Improving after hemorrhage. F/u with neurology. 7. Primary hypertension - ICD9: 401.9, ICD10: I10 - good control - Continue current medication(s) - Encouraged dietary sodium restriction/DASH diet - Recommended regular aerobic exercise. - Reviewed risks of HTN and principles of treatment - Goal of BP <140/90 8. Tobacco use - ICD9: 305.1, ICD10: Z72.0 - Cessation encouraged. - Physiologic and physical aspects of tobacco addiction as well as strategies for quitting were discussed. - Counseling was given focusing on the harmful effects of this addiction especially given the patient's medical condition(s) which will be worsened because of the chemicals in tobacco. 9. Acute urinary retention - ICD9: 788.29, ICD10: R33.8 Resolved. No longer needing ford. Follow up with urology as scheduled. I spent a total of 60 minutes on the date of the service which included preparing to see the patient, [id number] patient care, completing clinical documentation, obtaining and/or reviewing separately obtained history, performing a medically appropriate examination, counseling and educating the patient/family/caregiver, and ordering medications, tests, or procedures. Ender Rollins MD documented in this encounter [facility] 01-17-2023 Miscellaneous Notes Contacted Cait with [facility] and updated her with provider's message. She reports she will contact patient's daughter and go over recommendations with her. Please schedule patient for sooner appointment to have his lungs checked- can also use [facility] if needed since it is Friday afternoon. If he develops difficulty breathing, increasing shortness of breath, chest pain or fever recommend ER evaluation. Shantel Chadwick APRN.CNP Please schedule patient for sooner appointment to have lungs checked. If he develops difficulty breathing, increasing shortness of breath, chest pain, or fever recommend ER. Shantel Chadwick APRN.CNP Nurse Cait seen patient today for start of Plan of Care after patient discharged for [facility]. She is asking for verbal Ok that you will follow patient and sign orders. She stated that patient has a moist productive cough of yellow sputum. She listened to his lungs and on the left lower lobe she noted some tightness. While at [facility] he was getting breathing treatments for questionable COPD but those were discontinued at discharge. She is asking if you would want to see patient sooner than 01/27/23 to have lungs assessed. Please advise. documented in this encounter [facility] 01-07-2023 Instructions Makayla Gama APRN.CNP - 01/07/2023 2:21 PM EDT passed trial of void toilet every 2hours follow up on 01/17/2023 increased fluid intake penile hygiene documented in this encounter [facility] 01-07-2023 History of Present illness Narrative Juli Shook is a 77 year old male who presents today for evaluation of Patient presents with: Consult Urinary Retention CHIEF COMPLAINT & HISTORY OF PRESENT ILLNESS CC: 77 year old male with history of CAD, HTN history IC hemorrhage presents for ford catheter removal. Patient was seen in the ER after a fall, found to have urinary retention. Patient denies prior urological concerns or difficulty urinating Denies gross hematuria Last UTI October 2022 Son Jayjay on telephone Caregiver present in office Denies family history of prostate cancer Currently taking cardura 1 mg po daily Past Urological History: Stones:no Surgery:no Tumors:no Infections:yes: last uti 2022 Family History of prostate Ca:no VITALS: Height 175.3 cm (5' 9 ), weight 64 kg (141 lb). ALLERGIES: Sulfa (Sulfonamide Antibiotics), Heparin, and Integrilin [Eptifibatide] MEDICATIONS: Current Outpatient Medications Medication Sig Dispense Refill carvedilol (COREG) 12.5 mg tablet Take 12.5 mg by mouth twice daily with meals. apixaban (ELIQUIS) 2.5 mg tab(s) Take by mouth twice daily. doxazosin (CARDURA) 1 mg tablet Take 1 mg by mouth daily at bedtime. Cholecalciferol, Vitamin D3, 125 mcg (5,000 unit) cap Take 5,000 Units by mouth once daily. lisinopril (ZESTRIL, PRINIVIL) 20 mg tablet Take 1 tablet by mouth once daily. 90 tablet 1 busPIRone (BUSPAR) 5 mg tablet Take 5 mg by mouth twice daily. amLODIPine (NORVASC) 5 mg tablet Take 1 tablet by mouth once daily. 90 tablet 1 atorvastatin (LIPITOR) 40 mg tablet Take 1 tablet by mouth daily at bedtime. 90 tablet 1 warfarin (COUMADIN) 5 mg tablet 7.5 mg daily or as directed (Patient not taking: Reported on 01/07/2023) 50 tablet 5 hydroCHLOROthiazide (HYDRODIURIL, ESIDRIX) 12.5 mg capsule Take 1 capsule by mouth once daily. 90 capsule 1 No current facility-administered medications for this visit. SOCIAL HISTORY: Social History Tobacco Use Smoking status: Former Years: 60.00 Types: Cigarettes Quit date: 02/03/2019 Years since quittin.9 Smokeless tobacco: Never Vaping Use Vaping Use: Never used Substance Use Topics Alcohol use: Yes Alcohol/week: 17.5 standard drinks Types: 7 Cans of Beer (12oz) per week Drug use: Never PAST MEDICAL HISTORY: PAST MEDICAL HISTORY Diagnosis Date Colon polyps Dr. Avalos Coronary artery disease Dr. Bower DVT (deep venous thrombosis) (HCC) multiple Dyslipidemia Factor V Leiden (HCC) def Hypercoagulable state (HCC) possible factor V homozygous Hypertension Intracranial aneurysm Intracranial hemorrhage (HCC) 2015, 12/2018 Dr. Daniel Memory impairment Dr. Leong Pulmonary embolism (HCC) S/P IVC filter 2016 PAST SURGICAL HISTORY: PAST SURGICAL HISTORY Procedure Laterality Date COLONOSCOPY Last done age 69 or 70 with polyps. told he would not need follow up IVC FILTER PLACEMENT/REMOVAL 2016 STENT 1999, 2001 Cardiac x2 THORACENTESIS 2003 TONSILLECTOMY AND ADENOIDECTOMY HX childhood FAMILY HISTORY: FAMILY HISTORY Problem Relation Age of Onset Hypertension Father other (hypercoagulable state) Father other (hypercoagulable state) Other other (hypercoagulable state) Grandchild Thyroid Daughter other (factor v) Son All histories reviewed on this date 01/07/2023: Yes REVIEW OF SYSTEMS: CONSTITUTIONAL: Patient reports no recent fever or weight loss CARDIOVASCULAR: Negative for chest pain. RESPIRATORY: Negative for cough, hemoptysis, wheezing, COPD, dyspnea or shortness of breath GI: loose stool MUSCULOSKELETAL: denies back pain or muscular weakness All other systems reviewed and are negative other than HPI. RADIOLOGY REPORTS REVIEWED: Yes LAB RESULTS REVIEWED: Yes IMAGING STUDIES INDEPENDENTLY REVIEWED: No OLD RECORDS REVIEWED: Yes: Extensive: No PHYSICAL EXAM: constitutional: appears healthy in no acute distress respiratory: normal respiratory motion gi: abdomen soft, non-tender without masses, hernia or organomegaly gu: penis: absence of foreskin, small area of raised erythema on foreskin Neuro: assist x1 Patient presents for trial of voiding. Bladder filled with 400 cc of sterile water, balloon deflated, ford catheter removed without difficulty, balloon intact. Patient voided 300 cc's of yellow urine. ASSESSMENT/PLAN: ASSESSMENT/PLAN: 1. Urine retention - ICD9: 788.20, ICD10: R33.9 (primary diagnosis) -passed trial of void -push fluids -follow up in 2 weeks -continue with cardura 2. BPH with obstruction/lower urinary tract symptoms - ICD9: 600.01, 599.69, ICD10: N40.1, N13.8 -passed tov -continue with cardura -push fluids Patient is instructed to schedule a follow up in 2 weeks. Makayla Gama APRN.CNP documented in this encounter [facility] 12-23-2022 History of Present illness Narrative Hematology Clinic Hemostasis and Thrombosis DISEASE HISTORY: 1. ~ 1982 LLE DVT -History: Pt recalls having L calf swelling and pain, and found to have LLE DVT, and placed on a blood thinner at the time, likely warfarin. 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 ~ 1982 Lower extremity DVT -History: Pt recalls having L calf swelling and having a pulsating feeling in the RLE. Pt states he had another DVT in one of the lower extremities, and was continued on a blood thinner, likely warfarin. 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 10/18/2016 PE & LLE DVT (care everywhere ) -History: Initially presented for R parietal IPH while on Coumadin and had reversal, although INR was 2.4. During hospitalization, he complained of and found to have a PE and LLE DVT. Due to brain bleed while on therapeutic coumadin, IVC filter was placed as it was deemed not safe to restart anticoagulation. Pt was started on full dose ASA. 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 11/05/2019 acute on chronic LLE DVT -History: Presented with with LLE swelling. Was off anticoagulation at this time do to ICH ?12/2018. Found to have acute on chronic DVT from L external iliac to femoral vein. Pt was restarted on Coumadin. Per chart review, this was documented to be okay with neurosurgery. -Provoking Factors: prolonged travel >4h (-), immobilization (-), trauma (-), surgery (-), infection/inflammation (-) -Risk Factors: Tobacco (-), hormonal therapy (-), BMI>30 (-), Malignancy/Chemotherapy (-) 5. Pt recalls that he has had between 10-20 VTEs over his life time, involving BUE and BLEs. 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 Pt was on warfarin during this time. -Personal History of prior VTEs: First VTE was ~ 40 years ago, and since then pt has reported he has had somewhere between 10-20 VTE events. -Family History of VTE: Father, maternal and paternal grandparents, and 2 sisters. Pt is not aware of family history of frequent miscarriages. -Anticoagulation: Currently on Eliquis 2.5 mg BID. Previously on Coumadin. -Anticoagulation complications: History of brain bleeds while on coumadin/warfarin. Denies currently, denies nosebleeds, blood in urine or stool, denies increase in bruising or bleeding from minor cuts. -Work up: 11/21/2022: PT 14.9 (ref 11.9-14.2), INR 1.2, Fibrinogen-clottable 565 (ref 220-410), Anticardiolipin Ab IgG & IgM negative, Beta 2 Glycoprotein Ab IgG & IgM negative, LA negative 6. History of ICH/IPH 10/18/2016: Spontaneous acute R parietal IPH/ICH. Was on coumadin at the time, INR 2.4. S/p 4 factor prothrombin complex concentrates + vit K. 01/05/2019: Presented with N/V, unable to speak. BP high. Non traumatic L frontal ICH within the anterior portion of the L frontal lobe with mild midline shift. Given DDAVP and PLTs. No surgical intervention. ? Coumadin was discontinued. 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 Pt was switched to Eliquis 2.5 mg BID. 7. ? FVL mutation, heterozygous 8. CAD s/p stenting x 4 9. Smoker INTERVAL HISTORY: Pt with daughter today. Pt currently resides in [facility]. States he has not been smoking since. Pt appears to be tolerating Eliquis 2.5 mg BID. Daughter states pt was found to have thyroid nodules, and is currently being worked up for this. Pt with ?new CASSIDY. Chronic LLE swelling. ? Dark stools x1. 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 Pt is not interested in smoking cessation referral at this time. -Bleeding history: Epistaxis (-) Bleeding oral hygiene: Brushing (-), Flossing (-). 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 above) Past Medical History: Diagnosis Date CAD (coronary artery disease) DVT (deep venous thrombosis) Factor V deficiency Factor V Leiden HLD (hyperlipidemia) Intracranial hemorrhage Memory impairment Pulmonary embolism Past Surgical History: Procedure Laterality Date ADENOIDECTOMY COLONOSCOPY DIAGNOSTIC CORONARY STENT PLACEMENT IVC FILTER PLACEMENT TONSILLECTOMY Family History Problem Relation Age of Onset Hypertension Father Hypercoag state Other - Specify Grandchild Hypercoag state Other - Specify Son of renal disease Social History Tobacco Use Smoking status: Every Day Types: Pipe Review of Systems Constitutional: Positive for malaise/fatigue. HENT: Negative for nosebleeds. Cardiovascular: Positive for dyspnea on exertion (? new) and leg swelling (LLE swelling, chronic and unchanged). Negative for chest pain and palpitations. Respiratory: Positive for shortness of breath (? new). Negative for hemoptysis. Hematologic/Lymphatic: Does not bruise/bleed easily. Gastrointestinal: Negative for abdominal pain, hematemesis, hematochezia and melena. Genitourinary: Negative for hematuria. Outpatient Medications Prior to Visit Medication Sig Dispense Refill amLODIPine 10 MG tablet Take 1 tablet by mouth daily. 30 tablet 2 aspirin 81 MG Chew Tab chewable tablet Chew 1 tablet daily. 30 tablet 2 Atorvastatin 40 MG tablet Take 1 tablet by mouth daily. busPIRone 5 MG tablet Take 1 tablet by mouth daily. carveDILOL 6.25 MG tablet Take 1 tablet by mouth every 12 hours. 60 tablet 2 doxazosin 1 MG tablet Take 1 tablet by mouth at bedtime. 30 tablet 2 Eliquis 2.5 MG tablet Take 1 tablet by mouth every 12 hours. 60 tablet 2 Lisinopril 40 MG tablet Take 1 tablet by mouth daily. 30 tablet 2 nicotine 14 MG/24HR Patch [address] 1 patch on skin every 24 hours for 14 days. 14 patch 0 No facility-administered medications prior to visit. PHYSICAL EXAM: There were no vitals filed for this visit. Physical Exam Constitutional: General: He is in acute distress. Appearance: Normal appearance. He is normal weight. He is not toxic-appearing. Comments: In wheelchair, disheveled HENT: Head: Normocephalic and atraumatic. Eyes: Comments: EOMs intact to tracking examiner in room Cardiovascular: Rate and Rhythm: Normal rate and regular rhythm. Heart sounds: Normal heart sounds. Pulmonary: Effort: Pulmonary effort is normal. Breath sounds: Wheezing (expiratory, bilateral and throughout ) present. Abdominal: General: Abdomen is flat. Bowel sounds are normal. There is no distension. Palpations: Abdomen is soft. Tenderness: There is no abdominal tenderness. Musculoskeletal: General: No tenderness. Left lower leg: Edema (baseline per pt) present. Skin: General: Skin is warm and dry. Neurological: General: No focal deficit present. Mental Status: He is alert. Psychiatric: Mood and Affect: Mood normal. 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 Complicated with non traumatic brain bleeds, previously on Coumadin/Warfarin, but currently on Eliquis 2.5 mg BID. Pt with strong family history of VTE, and ? Heterozygous for FVL mutation. Given recurrent VTEs, it is recommended for pt to be on press tender long goods anticoagulation, however, need to balance risk for brain bleeds. Pt had brain bleeds while on therapeutic warfarin per chart review and per pt/pt's daughter, and taking this into account, it was decided to put pt on a low dose Eliquis due to better bleeding profile. Continue Eliquis 2.5 mg BID Labs ordered: CBC, CMP, Iron studies, Ferritin, Retic, PT/INR/PTT, ATIII, Protein S, FVL and Prothrombin mutation Will add protein C activity to blood work Partially reviewed. Hgb 12.5 (ref 13.4-16.8). CMP overall unremarkable. TIBC and Transferrin low but Ferritin normal. Retic wnl. PT/INR/PTT wnl. ATIII 110% (ref 85-118), Protein S activity 58% (ref 50-168) At follow-up telephone encounter will have pt obtain repeat CBC in ~6-[address] PE study ordered Case was briefly discussed with attending Dr. Castaneda Will have 2 week telephone follow-up with pt to discuss lab results and plans. Then will have pt follow likely in [address] Castaneda then likely on a yearly basis with anticoag referral. 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 where was he seen), if unable to, may need to reach out to ?[facility]. Pt does not utilize MyChart Sharita Betts PA-C Hematology documented in this encounter [facility] 12-23-2022 Instructions Usha Tran RN - 12/23/2022 10:[address]/PE to be scheduled today or we will provide an outside order AV LABS 2 week telephone visit with GRAEME Provider: Sharita Betts PA-C Primary Nurse: Usha Associate Nurse: Tory IMPORTANT: SURGICAL CLEARANCE: We MUST receive 2 WEEKS notice prior to any dental procedures, births, surgeries, and other procedures for Hematology clearance from our office. If you have not been seen by our office in over a year we cannot legally provide clearance. Failure to provide sufficient notice of at least two weeks prior may result in your surgery or procedure being delayed. Don't wait, communicate! Call [phone] and let our office know about what the procedure is for and where to send the clearance to as soon as you are aware. Thank you. Medication refills Please allow 1 week for all medication refills. You may request refills via Synchronized or by calling [phone]. Paperwork Please allow 2 weeks to complete disability, FMLA, and insurance paperwork. Please clarify what to do once they are completed, including any fax numbers or addresses needed. [facility] [employer] is a secure way to get access to your labs online. Once you're online, you may need to send a message to the office to release results so that you can review the results of your blood tests. For non-emergent concerns, please send us a Synchronized message but describe your issue fully. As an example, tell us how long you've had the symptom, what makes it better or worse, what you've done for it already) and one of our nurses or nurse practitioners will respond josé luis. For questions or concerns regarding Synchronized access or technical dificulties, please call [phone] or toll free at . Appointment's/ No show visits If you arrive late to your scheduled appointment, you may be asked to reschedule your visit. Please call [phone] at least 24 hours in advance if you are not able to make it to your scheduled visit. If you have three no show visit's within one year, you will be discharged from our practice. documented in this encounter [facility] 12-10-2022 Miscellaneous Notes Judie not expecting a call back from [facility]. Planned to reach out to SNF. TE closed at this time. Pati Marquez RN Pts voice mail is full will have to call back later. Reviewed and agree. Spouse (Judie) calls to ask information in regards to patient since having third stroke that has affected right side of brain. Judie reports that she is not receiving much information from [facility] facility. Discussed general information of right sided CVA and symptoms that could occur but directed Judie to reach out to [facility] staff and medical assistant ob gyn for specific questions in regards to care patient is receiving, weight loss, and depressed demeanor of patient which are concerns Judie voiced. Judie verbalizes understanding and reports that daughter Stacie is coming to visit and will assist her to contact [facility] and voice concerns. Pati Marquez RN documented in this encounter [facility] 11-29-2022 Note Formatting of this n ote might be different from the original. Stroke patient education has been reviewed and all required elements are complete and personalized. Care plan documentation complete and patient adequate for discharge. Next dose medication details have been added to the AVS as appropriate. [facility] 11-29-2022 Miscellaneous Notes Stroke patient education has been reviewed and all required elements are complete and personalized. Care plan documentation complete and patient adequate for discharge. Next dose medication details have been added to the AVS as appropriate. Problem: Patient Care Overview Goal: Plan of Care Review Outcome: Ongoing Goal: Individualization & Mutuality Outcome: Ongoing Problem: Stroke (Hemorrhagic) (Adult) Goal: Signs and Symptoms of Listed Potential Problems Will be Absent, Minimized or Managed (Stroke) Description: Signs and symptoms of listed potential problems will be absent, minimized or managed by discharge/transition of care (reference Stroke (Hemorrhagic) (Adult) CPG). Outcome: Ongoing Problem: OT - Cognition Goal: Cognition simple ADL Description: Pt will demonstrate improved cognition, completing simple ADL task for 10 minutes with less than 25% cues required to maintain attention, sequencing and problem solving for improved safety and success at discharge destination. Outcome: Ongoing Problem: OT - Endurance Goal: Endurance Functional Mobilty Around Home Description: Pt will complete distance needed for common household mobility independently. Outcome: Progressing Toward Goal Problem: OT - Visual Scanning Goal: Visual Scanning ADL Description: Pt will employ use of visual compensatory strategies with less than 25% cues to increase participation and safety in ADLs. Outcome: Progressing Toward Goal Nutrition Recommendations and Plan of Care: 1. Continue regular diet - recent PO intakes 25-50% 2. Continue Ensure Plus High Protein with meal trays 3. Ordered daily weights 4. RD to follow Dolores Holley RDN,BRIAN, BUFFING WHEEL OPERATOR Page: [phone] Phone: [phone] Please refer to Dietitian Technical Specialist in [employer] for daily RD coverage. Problem: PT - Balance/Coordination/Neuro Re-Education Goal: Standing Balance Description: Pt will score >45/56 on scott balance assessment to demonstrate low fall risk and safety with dynamic balance tasks. Outcome: Progressing Toward Goal Problem: PT - Mobility Goal: Ambulation Description: Pt will ambulate 150 feet with out an assistive device with supervision to improve ability to navigate home environment. Outcome: Progressing Toward Goal Problem: PT - Transfers Goal: Supine <-> Sit Description: Pt will perform bed mobility with flat bed & no rail with modified independence in order to improve functional mobility and safety. Outcome: Progressing Toward Goal Goal: Sit <-> Stand Description: Pt will perform sit to/from stand transfers with supervision with least restrictive device in order to improve functional mobility and safety. Outcome: Progressing Toward Goal Problem: OT - ADLs Goal: Grooming Description: Pt will complete grooming in standing with modified independence for improved ability to safely complete ADLs. Outcome: Progressing Toward Goal Problem: OT - Endurance Goal: Endurance Functional Mobilty Around Home Description: Pt will complete distance needed for common household mobility independently. Outcome: Progressing Toward Goal Problem: OT - Cognition Goal: Cognition simple ADL Description: Pt will demonstrate improved cognition, completing simple ADL task for 10 minutes with less than 25% cues required to maintain attention, sequencing and problem solving for improved safety and success at discharge destination. Outcome: Progressing Toward Goal Problem: Patient Care Overview Goal: Plan of Care Review Outcome: Ongoing Goal: Individualization & Mutuality Outcome: Ongoing Goal: Discharge Needs Assessment Outcome: Ongoing Goal: Interdisciplinary Rounds/Family Conf Outcome: Ongoing Problem: Nutrition, Imbalanced: Inadequate Oral Intake (Adult) Goal: Identify Related Risk Factors and Signs and Symptoms Description: Related risk factors and signs and symptoms are identified upon initiation of Human Response Clinical Practice Guideline (CPG) Outcome: Ongoing Problem: PT - Balance/Coordination/Neuro Re-Education Goal: Standing Balance Description: Pt will score >45/56 on scott balance assessment to demonstrate low fall risk and safety with dynamic balance tasks. Outcome: Progressing Toward Goal Problem: PT - Mobility Goal: Ambulation Description: Pt will ambulate 150 feet with out an assistive device with supervision to improve ability to navigate home environment. Outcome: Progressing Toward Goal Goal: Stairs Description: Pt will ascend/descend 2 stairs with 1 railings with supervision with out an assistive device to improve ability to perform functional mobility necessary in recommended discharge environment. Outcome: Progressing Toward Goal Problem: PT - Transfers Goal: Supine <-> Sit Description: Pt will perform bed mobility with flat bed & no rail with modified independence in order to improve functional mobility and safety. Outcome: Progressing Toward Goal Goal: Sit <-> Stand Description: Pt will perform sit to/from stand transfers with supervision with least restrictive device in order to improve functional mobility and safety. Outcome: Progressing Toward Goal Problem: OT - Dressing Goal: Lower Body Dressing Description: Pt will complete LE dressing tasks with modified independence for improved ability to complete self-care activities. Outcome: Ongoing Problem: OT - ADLs Goal: Grooming Description: Pt will complete grooming in standing with modified independence for improved ability to safely complete ADLs. Outcome: Progressing Toward Goal Problem: OT - Visual Scanning Goal: Visual Scanning ADL Description: Pt will employ use of visual compensatory strategies with less than 25% cues to increase participation and safety in ADLs. Outcome: Progressing Toward Goal Problem: OT - Cognition Goal: Cognition simple ADL Description: Pt will demonstrate improved cognition, completing simple ADL task for 10 minutes with less than 25% cues required to maintain attention, sequencing and problem solving for improved safety and success at discharge destination. Outcome: Progressing Toward Goal Problem: Patient Care Overview Goal: Plan of Care Review Outcome: Progressing Toward Goal Goal: Individualization & Mutuality Outcome: Progressing Toward Goal Problem: Nutrition, Imbalanced: Inadequate Oral Intake (Adult) Goal: Identify Related Risk Factors and Signs and Symptoms Description: Related risk factors and signs and symptoms are identified upon initiation of Human Response Clinical Practice Guideline (CPG) Outcome: Progressing Toward Goal Problem: Stroke (Hemorrhagic) (Adult) Goal: Signs and Symptoms of Listed Potential Problems Will be Absent, Minimized or Managed (Stroke) Description: Signs and symptoms of listed potential problems will be absent, minimized or managed by discharge/transition of care (reference Stroke (Hemorrhagic) (Adult) CPG). Outcome: Progressing Toward Goal Problem: Patient Care Overview Goal: Plan of Care Review Outcome: Met This Shift Goal: Individualization & Mutuality Outcome: Met This Shift Goal: Discharge Needs Assessment Outcome: Progressing Toward Goal Goal: Interdisciplinary Rounds/Family Conf Outcome: Met This Shift Problem: Nutrition, Imbalanced: Inadequate Oral Intake (Adult) Goal: Identify Related Risk Factors and Signs and Symptoms Description: Related risk factors and signs and symptoms are identified upon initiation of Human Response Clinical Practice Guideline (CPG) Outcome: Progressing Toward Goal Problem: ELEMENTARY PRINCIPAL - Cognition Goal: Problem Solving Goal 1 Description: Patient will complete basic problem solving tasks in at least 90% of opportunities in their immediate environment to support self-advocacy and independence, given min cues across x1-2 consecutive sessions by discharge. Outcome: Ongoing Goal: Alertness Goal Description: With medical optimization, patient will independently maintain alertness for at least 5 minutes across 1 session to determine readiness to participate in further cognitive-linguistic assessment. Outcome: Ongoing Problem: Nutrition, Imbalanced: Inadequate Oral Intake (Adult) Goal: Identify Related Risk Factors and Signs and Symptoms Description: Related risk factors and signs and symptoms are identified upon initiation of Human Response Clinical Practice Guideline (CPG) Outcome: Ongoing Problem: Patient Care Overview Goal: Plan of Care Review Outcome: Progressing Toward Goal Goal: Individualization & Mutuality Outcome: Progressing Toward Goal Problem: Stroke (Hemorrhagic) (Adult) Goal: Signs and Symptoms of Listed Potential Problems Will be Absent, Minimized or Managed (Stroke) Description: Signs and symptoms of listed potential problems will be absent, minimized or managed by discharge/transition of care (reference Stroke (Hemorrhagic) (Adult) CPG). Outcome: Progressing Toward Goal 2149: Notified neurovascular physician about elevated BP at beginning of shift: 191/85. 10mg labetalol given and BP still above parameters at 153/70. Orders placed for hydralazine and medication administered. 2239: Notified about continued elevated BP after labetalol and hydralazine administered: 166/74. Orders placed for 20mg of labetalol PRN 0445: Notified neurovascular physician that BP continues to be elevated throughout the night despite PRNs, orders placed for oral hydralazine. Juli Shoko is a 77 yo M with a history of Factor V Leiden (heterozygous), multiple DVT/PE s/p IVC filter placement, chronic warfarin therapy, intracerebral hemorrhage (2016, 2018), HTN, and CAD who was transferred from [facility] with a right occipital intraparenchymal hemorrhage. - Primary team planning to start aspirin on 11/23/22 and if stable, resume apixaban 2.5mg po bid on 11/30/22 and discontinue aspirin. We agree with this plan. - Follow up with [facility] ([phone]), we will request appointment in 1 month. Hematology consult service will plan to sign off at this time. Please contact us if you have any questions or concerns. Monie Hammonds MD Hematology/Medical Oncology, Fellow BEHAVIORAL EMERGENCY RESPONSE TEAM (MOOSE) RN NOTE 11/23/2022 Juli Shook : 1945 Sitter Rounds: Pt observed sleeping when this teletypewriter operator was rounding. No sitter present in room at this time. Spoke with staff who report no concerns for MOOSE at this time. Theresa Kapoor RN- MOOSE Pager: [phone] MOOSE Phone: [phone]: Patient impulsive and attempting to get out of bed -- redirectable for short periods. At neurological baseline. Will discuss need for sitter and if unable to obtain sitter coverage, will apply restraints if needed for safety. Seroquel provided. NVS aware tMAX 102.1 during day and patient rarely below stated blood pressure parameters of 140. Patient approaching 200 SBP during the day on multiple occasions. Will provide Labetalol IV push and restart Cardene if needed. 2049: Patient 91-92% on RA -- titrated to 2L NC to maintain saturations > 94 percent poor order. Patient currently 97 percent on 2L. 2125: Cardene resumed. NVS aware infectious workup complete (chest xray ready for review). 0200: Patient between 120-140 SBP goal on 12.5 mg/hr Cardene. Patient on daily Lisinopril/Amlodipine. NVS aware. 0445: Temperature 100.6 -- NVS aware. Will provide Tylenol. 0600: Patient titrated off Cardene (106/54, 112/56 and 108/55 blood pressures on last several checks). NVS aware. Problem: PT - Balance/Coordination/Neuro Re-Education Goal: Standing Balance Description: Pt will score >45/56 on scott balance assessment to demonstrate low fall risk and safety with dynamic balance tasks. Outcome: Progressing Toward Goal Problem: PT - Mobility Goal: Ambulation Description: Pt will ambulate 150 feet with out an assistive device with supervision to improve ability to navigate home environment. Outcome: Progressing Toward Goal Problem: PT - Transfers Goal: Supine <-> Sit Description: Pt will perform bed mobility with flat bed & no rail with modified independence in order to improve functional mobility and safety. Outcome: Progressing Toward Goal Goal: Sit <-> Stand Description: Pt will perform sit to/from stand transfers with supervision with least restrictive device in order to improve functional mobility and safety. Outcome: Progressing Toward Goal Problem: Patient Care Overview Goal: Plan of Care Review Outcome: Ongoing Goal: Individualization & Mutuality Outcome: Ongoing Goal: Discharge Needs Assessment Outcome: Ongoing Goal: Interdisciplinary Rounds/Family Conf Outcome: Ongoing Problem: Nutrition, Imbalanced: Inadequate Oral Intake (Adult) Goal: Identify Related Risk Factors and Signs and Symptoms Description: Related risk factors and signs and symptoms are identified upon initiation of Human Response Clinical Practice Guideline (CPG) Outcome: Ongoing Problem: OT - Dressing Goal: Lower Body Dressing Description: Pt will complete LE dressing tasks with modified independence for improved ability to complete self-care activities. Outcome: Progressing Toward Goal Problem: OT - ADLs Goal: Grooming Description: Pt will complete grooming in standing with modified independence for improved ability to safely complete ADLs. Outcome: Progressing Toward Goal Problem: OT - Endurance Goal: Endurance Functional Mobilty Around Home Description: Pt will complete distance needed for common household mobility independently. Outcome: Progressing Toward Goal Problem: OT - Visual Scanning Goal: Visual Scanning ADL Description: Pt will employ use of visual compensatory strategies with less than 25% cues to increase participation and safety in ADLs. Outcome: Progressing Toward Goal Problem: OT - Cognition Goal: Cognition simple ADL Description: Pt will demonstrate improved cognition, completing simple ADL task for 10 minutes with less than 25% cues required to maintain attention, sequencing and problem solving for improved safety and success at discharge destination. Outcome: Progressing Toward Goal Alberto wedge placed at the end of the bed for safety. Difficult to get an accurate BP on patient. Jumping out of bed often and tends to move arm when attempting to check BP. Patient confused and getting OOB frequently throughout the night. Bed alarm on and door remains open for safety. Problem: Patient Care Overview Goal: Plan of Care Review Outcome: Ongoing Goal: Individualization & Mutuality Outcome: Ongoing Goal: Discharge Needs Assessment Outcome: Ongoing Problem: Nutrition, Imbalanced: Inadequate Oral Intake (Adult) Goal: Identify Related Risk Factors and Signs and Symptoms Description: Related risk factors and signs and symptoms are identified upon initiation of Human Response Clinical Practice Guideline (CPG) Outcome: Ongoing Neurosurgery Update: Consulted for R occipital IPH with IVH extension (ICH score 1). Imaging reviewed which revealed stable ICH. MRI/MRA negative for underlying lesion or vascular abnormality. No neurosurgical intervention at this time. - No need for neurosurgical follow up. - Neurosurgery will sign-off. Please call with questions. Giovany Caceres MD, Neurosurgery NS2 ([phone]) Problem: PT - Balance/Coordination/Neuro Re-Education Goal: Standing Balance Description: Pt will score >45/56 on scott balance assessment to demonstrate low fall risk and safety with dynamic balance tasks. Outcome: Ongoing Problem: PT - Mobility Goal: Ambulation Description: Pt will ambulate 150 feet with out an assistive device with supervision to improve ability to navigate home environment. Outcome: Ongoing Goal: Stairs Description: Pt will ascend/descend 2 stairs with 1 railings with supervision with out an assistive device to improve ability to perform functional mobility necessary in recommended discharge environment. Outcome: Ongoing Problem: PT - Transfers Goal: Supine <-> Sit Description: Pt will perform bed mobility with flat bed & no rail with modified independence in order to improve functional mobility and safety. Outcome: Ongoing Goal: Sit <-> Stand Description: Pt will perform sit to/from stand transfers with supervision with least restrictive device in order to improve functional mobility and safety. Outcome: Ongoing Goal: Stand-Pivot Description: Pt will perform stand/pivot transfer to/from bed/chair/commode with supervision with least restrictive device in order to improve functional mobility and safety. Outcome: Ongoing Problem: OT - Dressing Goal: Lower Body Dressing Description: Pt will complete LE dressing tasks with modified independence for improved ability to complete self-care activities. Outcome: Ongoing Problem: OT - ADLs Goal: Grooming Description: Pt will complete grooming in standing with modified independence for improved ability to safely complete ADLs. Outcome: Ongoing Problem: OT - Endurance Goal: Endurance Functional Mobilty Around Home Description: Pt will complete distance needed for common household mobility independently. Outcome: Ongoing Problem: OT - Other Goal: Energy Conservation Description: Pt will follow energy conservation techniques appropriately 75% of the time during ADLs and functional mobility to conserve energy and maximize functional performance. Outcome: Ongoing On admission to [facility], from another [facility] inpatient unit a dual RN initial assessment of skin condition was performed by Jose Armando Smith RN and Rahel Rodriguez RN. Skin Assessment: Skin within defined limits:Yes Karlos Score: 20 LDA Added: No Jose Armando Smith RN Respiratory Therapy NON-Vent Assessment Juli Shook is a 77 y.o. male DNRCC-ARREST No active isolations Admit reason: No chief complaint on file. The encounter diagnosis was Nontraumatic intracerebral hemorrhage, unspecified cerebral location, unspecified laterality. Pulm/Smoking Hx: Past Medical History: Diagnosis Date CAD (coronary artery disease) DVT (deep venous thrombosis) Factor V deficiency Factor V Leiden HLD (hyperlipidemia) Intracranial hemorrhage Memory impairment Pulmonary embolism Social History Tobacco Use Smoking status: Not on file Smokeless tobacco: Not on file Substance Use Topics Alcohol use: Not on file Oxygen Therapy: O2 Device: O2 Device: room air Flow: Oxygen Concentration: O2 Sat: O2 Sat (%): 93 % BIPAP Settings: IPAP: EPAP: Set Rate: Recent Vitals: Blood pressure 139/59, pulse 67, temperature 98.8 F (37.1 C), temperature source Oral, resp. rate 16, height 1.765 m (5' 9.5 ), weight 61.6 kg (135 lb 12.9 oz), SpO2 93 %. IBW VT: Radiology: No acute findings Recent pertinent labs: Ptt/Pt/Inr: 30.8/17.5/1.4 (11/20 515-11/20 812) WBC/Hgb/Hct/Plts: 13.91/13.9/42.3/225 (11/20 515) Recent ABG/VBG: Sputum/Secretions/Consistency/[place] r: NA Breath Sounds: Diminished bilat Current Orders: Duoneb Q6 Plan of care/Rounds Updates: RT protocol initiated; txs changed to Q6 x4 doses per protocol. Pt denies any shortness of breath, does not take nebs at home, and is not wheezing. Will cont to monitor. Signed: Zoya Miller RCP 11/20/2022 8:15 PM NEUROCRITICAL CARE HISTORY AND PHYSICAL HOSPITAL VISIT DEMOGRAPHICS Patient: Juli Shook Code status: DNRCC-ARREST Admission date: 11/20/2022 5:06 AM Hospital days: LOS: 0 days CHIEF COMPLAINT Nausea/IPH with IVH HISTORY OF PRESENT ILLNESS Juli Shook is a 77 y.o. male with a past history of HTN, Factor V Leiden (Heterozygous) on warfarin, Dementia, HLD, CAD, Multiple DVT/PE x2 s/p IVC filter, IPH (2016, 2018), Current Smoker (pipe). Mr. Shook was transferred to [facility] after presenting to an OSH with a Right occipital IPH. Patient states he started vomiting earlier today. Went to OSH where CTH showed R occipital IPH (ICH score 1) with intraventricular extension. INR 2.9. Transferred to [facility] for further management after receiving vitamin K Upon arrival to [facility] 14. Rpt CT stable bleed but slight increase in IVH. No sign of obstructive hydrocephalous. INR 1.8. ICH score 1. Given Vit K and 541 units Kcentra (not full weight based dose) 2/2 hx of factor V deficiency INTERVAL HISTORY SINCE ADMISSION 11/20/2022: Admitted to [facility] 11/20: Consult Heme, Chest X-Ray, Amlodipine, MRI, MRA PHYSICAL EXAM GENERAL: Alert, no acute distress HEENT: normocephalic, CARDIO: +S1S2, RRR, Tele: no edema PULM: LCTA throughout matthias, diminished matthias LL. Respirations are easy and unlabored. Equal chest rise. ABDOMINAL: soft, nontender, nondistended, active bowel sounds : voiding without difficulty EXTREMITIES/VASCULAR: 2+ distal pulses x4, capillary refill <3 seconds NEURO: Mental status: alert; oriented to person, place,and month; good attention Speech/language: fluent; comprehension intact; object naming intact; repetition intact Cranial nerves: CN II: Visual young intact to confrontation except appears to have partial left upper outer field cut. PERRL- 3 mm chief technical officer III, IV and : EOMI. No nystagmus. CN V: Facial sensation intact to light touch. CN VII: slight left facial droop CN VIII: Hearing is grossly intact. CN IX and X: Soft palate elevates symmetrically in the midline CN XI: Shoulder shrug and sternocleidomastoid strength 5/5 bilaterally CN XII: Tongue is midline with normal movement; no fasciculations Motor: Normal bulk and tone. No Extremity Drift x4. Extremities 5/5 RUE, RLE, LUE, LLE 4/5 (pt states that he has hip pain on the left that hinders his movement) Sensation: Extremity sensation intact throughout. 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 IVH. Stable sd and sah. Mass effect, MLS. - 11/20 MRI B w/ & w/out: Rt IPH w/ IVH. Scattered SAH, may be d/t chronic hemosiderin standing. Area of encephalomalacia in left frontal lobe. 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 Consider follow up imaging in 8-12 wks to assess for underlying lesion. - 11/20 MRA: no AVM or dAVF - Cytotoxic Cerebral Edema Management: - Goal Na normonatremia; monitor - Hemorrhage presumably 2/2 unknown etiology; evaluation for cause and source: - Complete TTE (see cards) - Obtain LDL level and statin therapy if indicated (see cards) - Obtain HA1C level (see endo) - Defer antiplatelet therapy and therapeutic anticoagulation - Consider urine drug screen on admission if no stroke risk factors - Consider hypercoagulability panel 24H-post tPA if no stroke risk factors - Initiate VTE prophylaxis after bleed stability established (see heme) - Pain/Sedation management - Tylenol 650mg Q4H PRN - Oxycodone 5mg Q4H PRN - Dilaudid 0.5-1mg Q3H PRN Psych: Dementia - Cont home Buspar Pulm: Current Smoker/Tobacco Abuse - Goal SpO2 >92%; wean FiO2 as tolerated O2 Sat (%): 92 % (11/20 1600) O2 Device: room air (11/20 0800) - Duoneb q 6 hr - 11/20 CXR: no acute process Nicotine Dependence Use per Day: 3 pipes per day- has been trying to cut back Patient is not ready to quit Quit Date: P Discussed pharmacotherapy. Offered Rx to be sent to pharmacy of choice. We discussed health risks and resources. Offered referral to [facility] Smoking Cessation clinic (AMB REFERRAL TO SMOKING CESSATION) Spent 3-5 minutes counseling on this topic Denies needing nicotine patch Cards: Essential HTN HLD CAD Temp: [98.2 F (36.8 C)-98.8 F (37.1 C)] 98.8 F (37.1 C) Pulse (Heart Rate): [51-83] 59 Resp Rate: [14-29] 20 BP: (107-192)/(50-84) 133/62 O2 Sat (%): [91 %-94 %] 92 % Weight: [61.6 kg (135 lb 12.9 oz)] 61.6 kg (135 lb 12.9 oz) - Goal SBP <140, MAP >65 - Home antihypertensives: - Amlodipine 5 mg - Lisinopril 20 mg - Current Meds: - 11/20: Amlodipine 5 mg every day - Cardene gtt as needed - PRN labetalol and hydralazine - 11/20 TTE: P - 11/20 EKG: S. Brdy, QTc 453 - 11/20 Troponin: 12 - Statin Therapy: - 11/20 LDL: 48 - Cont home Atorvastatin 40 mg Renal/: No Current Issues - Fluid Balance: - Goal: euvolemia - Net PmL/24H, PmL/admission - UOP PmL/24H - Voiding without difficulty - 11/20: D/c'd MIV later in day. - Daily Chem 10; - Electrolytes replaced per [facility] protocol Recent Labs 11/20/22 0516 SODIUM 136 POTASSIUM 4.0 CHLORIDE 106 CO2 22 BUN 19 CREATSERUM 0.91 GI/Nutrition: No Current Issues Recent Labs 11/20/22 0516 ALBUMIN 3.7 BILIDIRECT 0.2 BILITOTAL 1.5* ALKPHOS 81 ALT 12 AST 24 TP 6.3* - DIET HEART HEALTHY - 4 GM SODIUM AAT - [place] Swallow Screening Result: passed=cleared for oral intake - Consult nutrition for malnutrition screening - Body mass index is 19.77 kg/m . - Bowel regimen: - - Senna - Miralax prn Endo: No Current Issues - Goal blood glucose 140-180 - Monitor for need for SSI Recent Labs 11/20/22 0503 11/20/22 0516 11/20/22 0754 GLUCOSE 111* 110* 99 HGBA1C -- 5.6 -- ID: Acute Leukocytosis 2/2 Critical Illness Recent Labs 11/20/22 0516 WBC 13.91* - Temp (24hrs), Av.5 F (36.9 C), Min:98.2 F (36.8 C), Max:98.8 F (37.1 C) - PRN Tylenol for T>100.4F - Most recent and positive cultures: Date Collected Source Result Date Finalized 11/20 Staph nasal swab P 11/20 Urcul P - Antiinfectives: Start Date Antiinfective Coverage Course Length Stop Date Heme/Onc: Hypercoagulable state 2/2 Factor V deficiency Multiple DVT x2/PE Recent Labs 11/20/22 0516 11/20/22 0658 11/20/22 0813 WBC 13.91* -- -- RBC 4.79 -- -- HGB 13.9 -- -- HCT 42.3 -- -- PLATELET 225 -- -- PT 21.1* 17.6* 17.5* PTT 30.8 -- -- INR 1.8* 1.5* 1.4* - Goal plt >100, INR <1.4, Hgb >7 - Vit K and 541 KCentra units given in ED - 11/20 Heme Consulted d/t second ICH and Coagulation Recs: - Hold in setting of IPH. - Once cleared would switch to Apixaban 2.5 mg BID - f/u with Hematology one month after discharge Musc: No Current Issues - PT/OT consulted and following Social/Dispo: - Code status: DNRCC-ARREST - Primary Emergency Contact: Jayjay Shook - HCPOA/LNOK: Ketan CHAVIRA - 11/20: Last updated Family. - P/P: Medications reconciled - Discharge planning per PCRM/SW. ICU Checklist: [ ] CAM-ICU [ ] ICU Diary daily [ ] SAT [ ] SBT [x ] DVT ppx; [x ] SCDs; [ ] Lovenox, [ ] heparin [ ] Stress ulcer prophylaxis: - Lines/Tubes: Joann: inserted CVC: inserted Ford: inserted Rectal tube: inserted Enteral access: inserted , [ ] gastric; [ ] post-pyloric Discussed with [facility] Attending, NOLAN Bowers Service [place] #: [id number] (Beds [phone] and beds), [place] #: [id number] (Beds [phone] and [facility] beds) 11/20/22 5:20 PM I certify that this patient requires inpatient services at this time. I anticipate the expected length of stay will include at least two midnights. Inpatient services are due to the following medical concerns ICH. Plans for post hospitalization care will be discharge to inpatient rehab facility. Problem: Nutrition, Imbalanced: Inadequate Oral Intake (Adult) Goal: Identify Related Risk Factors and Signs and Symptoms Description: Related risk factors and signs and symptoms are identified upon initiation of Human Response Clinical Practice Guideline (CPG) Outcome: Ongoing Note: Nutrition Recommendations and Plan of Care: 1. Advance diet as soon as appropriate. Encourage PO intake. 2. Will send chocolate Ensure Plus High Protein TID (350 kcal, 20 g PRO each) once diet is advanced. 3. Monitor PO intake, bowel function, skin integrity, weight change, lab values. 4. RD to follow. documented in this encounter [facility] 11-29-2022 History of Present illness Narrative Discharge to SNF today, all follow up appointments have been added to patient's AVS. SIA William, YANNICK Clothespin Drier Operator Summary: Final Discharge Social Work Final Discharge Plan and Transportation Final Discharge Planning Discharge Disposition: Assisted Facility Services at Discharge: Physical Therapy, Speech Therapy, Assisted, Occupational Therapy Name For Handoff: [facility] Phone For Handoff: [phone] Selected Continued Care - Admitted Since 11/20/2022 Destination Coordination complete. Service Provider Selected Services Address Phone Fax Patient Preferred [facility] Assisted [id number] [facility] [id number] -- -- Plan Plan: PT, OT. ST, Assisted Patient/Family In Agreement With Plan: yes Transportation Name of Transport Company: [employer] (ALS/[facility] transport) ETA of Ambulance: 1:30pm Transfer Mode: gurney Mode of Transfer: ambulance Accompanied By: alone Patient medically stable for discharge per physician/medical team. SW confirmed with [facility] that they are able to accept the patient this date. Insurance pre-certification has been obtained and a hospital exemption has been completed. SW arranged transport as indicated above, ETA is 1:30pm. The patient has no specialized equipment needs for transportation. AVS/SAUL completed from a SW standpoint. MAY updated the bedside RN, CCM, facility and patient/technical services representative of the discharge plan and transport time. Patient/Supervisor Sample remain in agreement with the discharge plan. Bedside RN to call report and fax AVS/SAUL. Ambulance form left at the munitions handler desk with a request for a printed transfer report. Discharge Instruction for Bedside RN: 1. Confirm the Ambulatory Order is in the SAUL. 2. Print the SAUL and AVS. 3. Print the Discharge Summary for facilities (if available). 4. Fax SAUL, AVS and Discharge Summary (when applicable) to agency or facility. 5. Call the agency or facility for report. MAY called patient's son, Jayjay Shoko and notified him of patient discharge plan to SNF today at 1:30pm. Son was in agreement with discharge plan. ONELIA Stratton, [facility] [place] [employer] Operator [phone] Acute Occupational Therapy Treatment Prior to Admission AM-PAC Score: PRIOR LEVEL AM-PAC Activity Raw Score: 24 PRIOR LEVEL AM-PAC Mobility Raw Score: 24 Current AM-PAC score(s): CURRENT AM-PAC Activity Raw Score: 14 Based on the above AM-PAC score(s), and OT clinical judgment, discharge destination recommendation is: Assisted Facility Barriers to discharge home: Patient needs assistance with ADLs, Patient needs assistance with IADLs (see note below), Patient needs assistance with functional mobility Supporting Factors (would benefit from skilled therapy services): Patient status is anticipated to be appropriate to tolerate inpatient rehab therapy requirements at time of discharge from acute care, Impaired functional status, Decreased strength, Impaired balance, Decreased endurance, Impaired self-care abilities, Impaired cognitive status, Assistance needed with functional mobility, Fall risk, Recent decline in functional mobility, Recent decline in self-care abilities, Recent decline in cognitive function, Patient has appropriate assistance and setup at home for ultimate discharge to home once patient has progressed functionally following inpatient rehab Mobility equipment available at home: straight cane, 4 wheeled walker, 2 wheeled walker ADL equipment available at home: shower chair, grab bars Equipment recommendations for discharge: to be determined Current therapy frequency recommendation(s) in acute: 5 times a week Precautions and Weightbearing Status: OT Existing Precautions/Restrictions: fall Telemetry Patient Safety Communication Prior to Visit: Nursing Subjective: Pt agreeable to OT session with encouragement. Pt endorses fatigue but due to cognitive impairments limited ability to discuss progress, how he is feeling, etc and mostly kept stating I don't know to any questions Pain: General Pain Documentation (Adult, OB, Peds) Presence of Pain: denies pain/discomfort Objective/Observation: Vitals/Vitals Responses to Treatment: VSS, o2 sats above 94% on room air (READ-ONLY/RETIRED) Respiratory Status O2 Device: room air Cognition Overall Cognitive Status: Impaired Arousal/Alertness: Delayed responses to stimuli Orientation Level: Oriented to person, Oriented to place (Feb with increased time, not to year when asked) Following Commands: Follows one step commands with increased time, Follows one step commands with repetition Safety Judgment: Decreased awareness of need for assistance, Decreased awareness of need for safety Awareness of Errors: Assistance required to identify errors made, Assistance required to correct errors made Deficits: Decreased awareness of deficits Attention Span: Attends with cues to redirect Memory: Decreased short term memory, Decreased press tender long goods memory Problem Solving: Assistance required to identify errors made, Assistance required to generate solutions Cognition Comments: Pt with flat affect, impaired initiation. Pt repeats I don't know for most questions, even basic questions, asked. Pt looking around aimlessly throughout session but when asked if he needed anything states I don't know Balance: Sitting Balance Static Sitting-Level of Assistance: Standby Dynamic Sitting-Level of Assistance: Contact guard Standing Balance Static Standing-Level of Assistance: Minimum assistance Dynamic Standing-Level of Assistance: Moderate assistance Standing-Balance Support: Gait belt Mobility Assessment/Intervention: Supine to Sit Mobility [place] Level: Supine->Sit: minimum assist (75% patient effort) Bed Features/Set-up: Supine->Sit: Head of bed elevated, Use of bed rail Skilled Rationale: Verbal cues, Positioning Skilled Intervention/Details: Supine->Sit: max initiation cues and assist to pull trunk to sitting Sit to Supine Mobility [place] Level: Sit->Supine: moderate assist (50% patient effort) Bed Features/Set-up: Sit->Supine: Head of bed elevated Skilled Rationale: Verbal cues, Tactile cues, Positioning, Technique of activity Skilled Intervention/Details: Sit->Supine: repeated cues to initiate and impaired problem solving. Despite cues, pt not completing. Therapist cued him that she would assist with LEs but then pt went straight back instead of down towards pillow and required max cues to correct balance to sitting and tactile cues to guide trunk down and mod A for LEs Transfer Assessment/Intervention: Sit to Stand Transfer [place] Level: Sit->Stand: minimum assist (75% patient effort) Assistive Device: Sit->Stand: gait belt, armed chair Skilled Rationale: Verbal cues, Hand placement Skilled Intervention/Details: Sit->Stand: initiation cues for each stand. Stood more than 3 times from recliner chair and x1 from EOB. Stand to Sit Transfer [place] Level: Stand->Sit: minimum assist (75% patient effort) Assistive Device: Stand->Sit: gait belt, armed chair Skilled Rationale: Verbal cues, Hand placement, Controlled descent for sitting Skilled Intervention/Details: Stand->Sit: cues for proximity to chair, reaching back, and eccentric control Bed-Chair Transfer [place] Level: Bed<->Chair: minimum assist (75% patient effort) Assistive Device: Bed<->Chair: gait belt, hand held assist Skilled Rationale: Verbal cues, Tactile cues, Positioning Skilled Intervention/Details: Bed<->Chair: chair to bed and bed back to chair Functional Mobility: Functional Mobility [place] Level: Functional Mobility/Gait: (mod progressing to min A) Assistive Device: Functional Mobility/Gait: gait belt (right handheld assist progressing to ww) Functional Mobility Distance: Distance needed for common household mobility Functional Mobility Deficits: Activity tolerance, Balance, Problem solving, Shortness of breath, Slowed gait speed Functional Mobility Skilled Rationale: Verbal cues, Tactile cues Skilled Intervention/Details - Functional Mobility/Gait: Pt initially completed short household distance with right handheld assist and mod A for balance. Pt unsteady and constantly reaching out for objects to steady self. Pt then trialed with 2ww and improved to CGA/min A for balance with 2ww. Improved safety with ww. Still required max cues for way finding Outcome Score(s): CURRENT [facility] Daily Activity Inpatient Short Form Putting on/Taking Off Lower Body Clothin - A Lot of Assistance Bathin - A Lot of Assistance Toiletin - Total Assistance Putting on/Taking Off Upper Body Clothin - A Little Assistance Groomin - A Little Assistance Eatin - A Little Assistance CURRENT [facility] Activity Raw Score: 14 CURRENT -[facility] Activity Functional Limitation/Modifier: 59.67% Currently Impaired in Daily Activity - CK Assessment & Plan: Pt demonstrates increased independence in mobility necessary for ADLs with ww from previous session and is making fair progress towards goals. Pt continues to present with deficits in balance, activity tolerance, strength, cognition, safety and insight, initiation, resp status and requires 1- person assist for ADLs and functional transfer and mobility tasks. Pt requires continued skilled OT services to address functional deficits and maximize safety and independence in ADLs for return home with family safely. Patient Instruction/Education this session: Patient Instruction: progression of treatment, cues for posture and balance Plan for next session: increased standing balance and tolerance at sink Acute OT Goals Plan of Care by Cynthia Kaba OT at 11/28/2022 2:30 PM Version 1 of 1 Problem: OT - Cognition Goal: Cognition simple ADL Description: Pt will demonstrate improved cognition, completing simple ADL task for 10 minutes with less than 25% cues required to maintain attention, sequencing and problem solving for improved safety and success at discharge destination. Outcome: Ongoing Problem: OT - Endurance Goal: Endurance Functional Mobilty Around Home Description: Pt will complete distance needed for common household mobility independently. Outcome: Progressing Toward Goal Problem: OT - Visual Scanning Goal: Visual Scanning ADL Description: Pt will employ use of visual compensatory strategies with less than 25% cues to increase participation and safety in ADLs. Outcome: Progressing Toward Goal OT treatment consisted of ADL retraining, balance training, bed mobility training, cognitive training, strengthening and transfer training to work and progress towards above goal(s). Treating Therapist: Cynthia Kaba OT Additional Details: Co-evaluation/co-treatment performed?: No simultaneous skilled care performed I used gloves and facemask in today's patient interaction. Patient location at end of session: chair Alarms on at end of session: chair alarm Needs in reach. Time In: 1357 Time Out: 1424 Total Visit Time: 27 minutes Total Treatment Time (skilled, billable minutes): 27 minutes Upon discontinuation of Acute Care Occupational Therapy Services or patient discharge from the hospital this note represents the current Occupational Therapy Discharge Summary. Neurovascular Stroke Service Intracerebral Hemorrhage Note IDENTIFYING INFORMATION Juli Shook MR# [id number] 11/28/2022 HISTORY OF PRESENT ILLNESS Juli Shook is a 77 y.o. right-handed male smoker with a history of CAD, HTN, and Factor V Leiden (recurrent DVTs s/p IVC filter 2015) on coumadin, prior left frontal intracerebral hemorrhage 12/2018 ([facility], CTA neg) who on 11/19/21 developed symptoms of severe headache and nausea. He presented to [facility] where CT brain showed a 3m right occipital intracerebral hemorrhage with IVH. INR 2.9. He was given Vitamin K. He was transferred to [facility] ER and on arrival NIHSS was 0. INR 1.8 and he was given Kcentra. CT angiogram head/neck shows increased vascularity adjacent to tentorium, possible dAVF. NSG consulted. The pateint was started on cardene gtt and admitted to the [facility]. INTERVAL HISTORY 11/20: repeat CTH pending, MRI brain P 11/21: Tx to Med surg, lisinopril increased, imaging reviewed 11/22: confusion overnight, lisinopril increased, cardene gtt resumed due to SBP > 200, repeat CTH pending, family updated via phone 11/23: Tmax overnight 102, CXR and UA unremarkable, blood cultures, Covid/flu swabs pending. Empiric antibiotics initiated 11/24: Afebrile overnight. Blood cultures NGTD. BP elevated overnight, increased hydralazine to 50 mg TID. Coughing with oral intake, made NPO, speech to re-evaluate 11/25: Pt coughing up thick elkins secretions, O2 stable on 2L NC. Repeat CXR pending. Vanc stopped. Procal, VBG w/ lactate obtained. Lower respiratory culture pending. Hydralazine increased. 11/26: Low grade fevers overnight. Continue IV Cefepime. Hydralazine changed to Coreg for BP control. 11/27: No acute events. 22: Had urinary retention last evening, had issues with straight catheterization, insert ford, start doxazosin. Son updated on phone. PHYSICAL EXAM Gen: awake, alert, NAD HEENT: normocephalic, no scalp lesions or tenderness, PERRLA, EOMI Neck: trachea midline CV: +S1S2, RRR, no m/r/g Lungs: LCTA bilaterally with equal chest rise Abd: soft, nontender, nondistended, +BS x4 quadrants Extrem: Warm and well perfused, no cyanosis, clubbing, edema Neuro: Oriented x3, [place] x4, sensation intact and equal bilaterally. CN II - All visual young intact CN II/III - PERRLA CN III/IV/ - EOMI CN V - Face symmetric CN VII - Facial movement intact and symmetrical bilaterally CN VIII - [place] CN X - Cough present CN XI - muscular movement of shoulders and sternocleidomastoid muscles intact and equal bilaterally CN XII - midline protrusion of tongue MOTOR EXAMINATION: BLE weakness NIHSS Provider NIH Stroke Scale NIH Interval (Provider): daily NIH Level of Conciousness (Provider): 0 NIH LOC Questions (Provider): 1 NIH LOC Commands (Provider): 0 NIH Best Gaze (Provider): 0 NIH Visual (Provider): 0 NIH Facial Palsy (Provider): 0 NIH Left Arm Motor (Provider): 0 NIH Right Arm Motor (Provider): 0 NIH Left Leg Motor (Provider): 0 NIH Right Leg Motor (Provider): 0 NIH Limb Ataxia (Provider): 0 NIH Sensory (Provider): 0 NIH Best Language (Provider): 0 NIH Dysarthria (Provider): 0 NIH Extinction and Inattention (Provider): 0 NIH Total Score (Provider): 1 Intracerebral Hemorrhage Volume Intracerebral Hemorrhage Score Score 30 Day Mortality following ICH 0 0% Mortality 1 13% Mortality 2 26% Mortality 3 72% Mortality 4 97% Mortality 5 100% Mortality ASSESSMENT AND PLAN Neuro: Coumadin related Acute right occipital Intracerebral hemorrhage CTH:Stable Rt occipital hemorrhage with extension into the Rt lateral ventricle. Thin SDH, trace SAH. 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 Right thyroid lobe heterogeneous lesion MRI brain: Rt IPH w/ IVH. Scattered SAH, may be d/t chronic hemosiderin standing. Area of encephalomalacia in left frontal lobe. 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 MRA brain: No AVM or dAVF Repeat CTH 11/22 Stable ECHO TTE EF 65-70%, no significant valvular disease LDL 48, A1c 5.6 -Aspirin 81 mg, discontinue when anticoagulation is initiated. -Eliquis (2.5 mg BID) start post hemorrhage day 10 on 11/30 (AC is for Factor V Leiden, hx of multiple PE/DVT) -Follow up MRI imaging in 8-12 wks to assess for underlying lesion. -Follow up with heme in 1 month Hemorrhagic Stroke Core Measures -NHISS on admission 0 -Patient has been started on Mechanical (SCD's) and Pharmacological (SQ heparin) DVT prophylaxis will be started after stable HCT. -Antiplatelet therapy is not indicated. -Anticoagulation therapy not indicated in hemorrhagic stroke -Patients LDL 48 and HgbA1c 5.6 were checked and the patient will be discharged on a lipid lowering Statin medication if LDL is greater than 100. -Dysphagia screening ordered, and will be completed prior to patient receiving oral intake. -Stroke education booklet has been provided both written and verbal education to the patient and family regarding hemorrhagic strokes. We have reviewed the patient's personal modifiable risk factors including: HTN as well as education on reducing these risk factors. -Patient is being assessed for Rehab by PT/OT/Speech and PM&R if indicated. LLL Pneumonia:Tmax overnight 11/23 102, CXR and UA unremarkable. Patient with elkins, thick productive sputum on 11/25 -Lower respiratory culture negative, likely contaminant -Repeat CXR 11/25 with patchy atelectasis in the LLL -Continue IV Cefepime, stop on 11/29. Switch to ciprofloxacin if discharges to SNF Dysphagia and low oral intake: -cleared for regular diet with thin liquids 11/25 -Continue to encourage to eat -RD following Dementia (POA): -Continue home Buspar -Discussed delirium with patient's son 11/22. Son reports has had cognitive decline and has issues with short term memory. -Delirium likely secondary to acute illness, hospitalization in addition to baseline dementia. Delirium precautions. Melatonin at bedtime. Seroquel at bedtime PRN. 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 Right thyroid lobe heterogeneous lesion: Incidental seen on CTA brain/neck -OP follow up with PCP for non-emergent thyroid ultrasound Acute Urinary retention: Had high residuals on 11/27, nurses had difficulty with straight catheterization -Insert ford -Start doxazosin 1 mg daily -Attempt voiding trials in a few days -May need urology follow up outpatient if unsuccessfull at voiding trials Juli Shook was recommended to discharge to [facility] but will likely be discharged to SNF close to home. Laney Carcamo APRN-MENDEZ 11/28/2022 12:31 PM VITAL SIGNS Temp: [96.4 F (35.8 C)-98.6 F (37 C)] 97.6 F (36.4 C) Pulse (Heart Rate): [60-68] 60 Resp Rate: [16-21] 20 BP: (97-144)/(53-65) 119/57 O2 Sat (%): [94 %-97 %] 95 % IMAGING/DIAGNOSTIC STUDIES XR CHEST PORTABLE Final Result IMPRESSION: Patchy atelectasis at the left base. No other abnormality. CHEST PORTABLE Final Result IMPRESSION: No acute cardiopulmonary disease CHEST PORTABLE Final Result IMPRESSION: Stable chest. HEAD WITHOUT CONTRAST Final Result IMPRESSION: No interval change when compared to CT head November 20, 2022. CARDIOGRAM Final Result MRI ARTERIOGRAM BRAIN WITHOUT CONTRAST Final Result IMPRESSION: No evidence of AVM or dural aVF. No significant intracranial arterial stenosis or occlusion. BRAIN WITH AND WITHOUT CONTRAST Final Result IMPRESSION: Right occipital parenchymal hemorrhage is again noted with intraventricular extension. T1 hyperintensity associated with the hematoma and in the dependent right cerebral hemisphere. No definite underlying parenchymal enhancement. Consider follow-up imaging in 8-12 weeks to better assess for underlying lesion. Scattered susceptibility artifact in multiple sulci and cerebellar folia, bilateral scattered subarachnoid hemorrhage. While this may all represent acute subarachnoid hemorrhage, cannot exclude a degree of underlying chronic hemosiderin staining. Small foci of mild diffusion restriction in the right frontal and parietal lobes, and most prominently in the left temporal lobe. These may be artifactual due to adjacent subarachnoid hemorrhage, although could represent small subacute infarcts. Prominent area of encephalomalacia in the left frontal lobe with apparent chronic hemosiderin staining. Small amount of enhancement centrally, likely representing an area of scarring. 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 CHEST PORTABLE Final Result IMPRESSION: No acute cardiopulmonary disease HEAD WITHOUT CONTRAST Final Result IMPRESSION: 1. Stable appearance of the right occipital parenchymal hematoma. 2. Stable degree of ventricular extension of blood products without progressing hydrocephalus. 3. Stable small volume of subdural blood products and subarachnoid hemorrhage. ANGIO BRAIN/NECK Final Result IMPRESSION: 1. No spot sign, large vessel arterial occlusion, dissection or aneurysm. 2. 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 Recommend further evaluation with MRA brain. 3. Right thyroid lobe heterogeneous lesion. Recommend correlation with prior imaging if available, or may consider nonemergent thyroid ultrasound. I personally viewed and interpreted these images and I have reviewed and approved this report. STROKE HEAD-STROKE ALERT ONLY Final Result IMPRESSION: 1. Right occipital intraparenchymal hemorrhage with intraventricular extension. Thin subdural hemorrhage and trace subarachnoid hemorrhage. 2. 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 A Critical finding has been discussed with Chris Contreras MD with a read back to Imelda Milton MD on 11/20/2022 5:22 AM . I personally viewed and interpreted these images and I have reviewed and approved this report. BRAIN WITH AND WITHOUT CONTRAST (Results Pending) MEDICATIONS amLODIPine 10 mg Oral Daily aspirin 81 mg Oral Daily Atorvastatin 40 mg Oral Daily busPIRone 5 mg Oral Daily carveDILOL 6.25 mg Oral Q12H ceFEPIme (MAXIPIME) IVPB 2 g Intravenous Q12HNS doxazosin 1 mg Oral QHS enoxaparin 40 mg Subcutaneous Daily Ipratropium-albuterol 3 mL Nebulization Q6HNS Lisinopril 40 mg Oral Daily Melatonin 3 mg Oral Daily early evening nicotine 1 patch Transdermal Q24H And VERIFY LINKED PATCH PLACEMENT Other Q12H Senna 8.6 mg Oral Daily Associated attestation - Pancho rFanks MD - 11/28/2022 3:49 PM EST I have independently seen and examined the patient on 11/28/22. I agree with the history, examination, assessment and plan as documented by the HOME PARAPROFESSIONAL with my changes/additions added. HPI: Patient is a 77 yo M with a hx of CAD, HTN, factor V Leiden on warfarin, DVT s/p IVC filter, prior hx of L frontal ICH who presented with severe headache and nausea. Found to have R occipital ICH with IVH. S/p K centra and Vitamin K for reversal. MRA was negative for dAVF. NSGY consulted no acute surgical intervention Interval History: Urinary retention last evening, requiring straight cath Scheduled Meds: amLODIPine 10 mg Oral Daily aspirin 81 mg Oral Daily Atorvastatin 40 mg Oral Daily busPIRone 5 mg Oral Daily carveDILOL 6.25 mg Oral Q12H ceFEPIme (MAXIPIME) IVPB 2 g Intravenous Q12HNS doxazosin 1 mg Oral QHS enoxaparin 40 mg Subcutaneous Daily Ipratropium-albuterol 3 mL Nebulization Q6HNS Lisinopril 40 mg Oral Daily Melatonin 3 mg Oral Daily early evening nicotine 1 patch Transdermal Q24H And VERIFY LINKED PATCH PLACEMENT Other Q12H Senna 8.6 mg Oral Daily Labs: Lipid panel: Lab Results Component Value Date CHOLESTEROL 114 11/20/2022 TRIG 63 11/20/2022 HDL 53 11/20/2022 LDLCALC 48 11/20/2022 CHOLTOTALHDL 2.2 11/20/2022 NHCHOL 61 11/20/2022 Chem 7: Lab Results Component Value Date SODIUM 139 11/28/2022 POTASSIUM 3.5 11/28/2022 CHLORIDE 108 11/28/2022 CO2 21 11/28/2022 GLUCOSE 113 (H) 11/28/2022 BUN 40 (H) 11/28/2022 CREATSERUM 0.80 11/28/2022 BUNCREARATIO 50 11/28/2022 OSMOLALITY 301 11/28/2022 GFR 90 11/28/2022 CBC: Lab Results Component Value Date WBC 13.50 (H) 11/28/2022 HGB 13.2 (L) 11/28/2022 HCT 40.4 11/28/2022 PLATELET 312 11/28/2022 MCV 87.6 11/28/2022 DIFF: Lab Results Component Value Date RBCDISTRIBU 13.5 11/28/2022 GRNLOCYT 76.6 11/20/2022 LYMPHOCYT 13.2 11/20/2022 MONOCYTELEC 9.6 11/20/2022 EOSINOPHILS 0.1 11/20/2022 BASOPHILS 0.2 11/20/2022 LYMPHOCYTABS 1.84 11/20/2022 EOSINOPHLABS <0.04 11/20/2022 PLATELET 312 11/28/2022 MPV 10.7 11/28/2022 Physical Exam: Vitals: 11/28/22 1121 BP: 119/57 Pulse: 60 Resp: 20 Temp: 97.6 F (36.4 C) GENERAL: no acute distress HEENT: normocephalic, atraumatic CARDIO: +S1S2, RRR, no edema PULM: Reduced breathing sounds at left lower base ABDOMINAL: soft, nontender, nondistended, active bowel sounds EXTREMITIES: no wounds nor lesions SKIN: no rash or obvious skin abnormalities VASCULAR: + distal pulses, capillary refill <3 seconds NEURO: Awake and alert, follows commands, pupils reactive to light, asymmetric face, dysarthria, left sided drift (LLE >RLE) Assessment and Plan: Neuro: Acute right occipital ICH in the setting of coagulopathy S/p Kcentra and Vit K for warfarin reversal - At very high risk for stroke, new DVT/PE given his hx of hypercoagulability. Plan to start Eliquis instead of Warfarin on hemorrhage day 10 (11/30). Dc ASA at that time - SBP <160, MAP >65. PRN Hydralazine and Labetalol - Neurochecks and NIHSS - Eunatremia eucarbia, euthermia and euvolemia - PT/OT/ELEMENTARY PRINCIPAL eval. Passed swallow eval Other medical problems: HTN: Lisinopril and Norvasc. Switched hydralazine to Coreg LLL Pneumonia: Will do 7 days of abx. On cefepime until 11/29, switch to oral Ciprofloxacin if gets discharged before finishing the course of abx. Schedule duonebs. Target SpO2 >89% Tobacco use: Nicotine patch, counseling on smoking cessation DVT/PE S/p IVC filer. Plan for anticoagulation as above Urinary retention: Insert Ford due to traumatic insertion from multiple straight cath, doxazocin VTE prophylaxis: - SCDs - Chemical prophylaxis with subcutaneous Lovenox Acute deconditioning - PT/OT consulted and following - Mobility as tolerated Additional details and other supportive care as per the HOME PARAPROFESSIONAL note below. Pancho Franks MD Neurovascular Attending NUTRITION FOLLOW UP Nutrition Recommendations and Plan of Care: 1. Continue regular diet - recent PO intakes 25-50% 2. Continue Ensure Plus High Protein with meal trays 3. Ordered daily weights 4. RD to follow Juli Shook is a 77 y.o. male with h/o HTN, factor V leiden on warfarin, dementia, HLD, CAD, DVT x2 s/p IVC filter, frontal IPH, who presents with severe headache and nausea. Found to have right occipital ICH with IVH. Transferred to [facility] for further management after receiving vitamin K. NSGY consulted no acute surgical intervention. Nutrition Assessment/History: Information obtained from chart review. Pt with hx of dementia; cognitive decline and issues with short term memory. Pt on antibiotics for LLL pneumonia. Cleared for regular diet by speech therapy on 11/24. Recently documented meal intakes 25-50%. Sending Ensures with meal trays to help optimize calorie and protein intake. Last weighed on 11/21. Ordered daily weight to monitor for weight loss/weight trends. Per RD assessment on 11/20 Pt reports usually eating 1 meal per day at home and has snacks such as cookies, etc. He used to drink oral nutritional supplements but has not had any recently although still having several bottles at home. Agreeable to receive chocolate Ensure once diet is advanced. NKFA. Diet Order Current Diet Orders Procedures DIET REGULAR Meds whole with water. Intermittent supervision for safety to ensure sitting upright and alert. Standing Status: Standing Number of Occurrences: 1 Ht/Wt Eval: Ht: 5' 9.5 /176.5 cm Current wt: 135 lbs (61.6 kg) BMI: 19.8 kg/(m^2) IBW: 163 lbs (74.1 kg) Estimated Nutrition Needs: Dosing wt: 135 lbs (61.6 kg), CBW EEN (30-35 kcal/kg CBW): 0432-6684 kcals EPN (1.4-1.8 g/kg CBW): 86-111 gm protein Weight History: Noted wt loss of 7 lb (5%) in 3 months, which is insignificant. Overall wt loss 12 lb (8%) in 9 months, which is also insignificant. 11/21/22: 135 lbs 11/20/22: 135 lbs Per Care Everywhere: 11/11/22: 64.41 kg (141.7 lb) 08/21/22: 64.4 kg (142 lb) 07/22/22: 63.2 kg (139 lb) 04/30/22: 65.03 kg (143.1 lb) 02/04/22: 66.9 kg (147 lb 8 oz) 01/21/22: 66.4 kg (146 lb) Meds reviewed: amLODIPine 10 mg Oral Daily aspirin 81 mg Oral Daily Atorvastatin 40 mg Oral Daily busPIRone 5 mg Oral Daily carveDILOL 6.25 mg Oral Q12H ceFEPIme (MAXIPIME) IVPB 2 g Intravenous Q12HNS enoxaparin 40 mg Subcutaneous Daily Ipratropium-albuterol 3 mL Nebulization Q6HNS Lisinopril 40 mg Oral Daily Melatonin 3 mg Oral Daily early evening nicotine 1 patch Transdermal Q24H And VERIFY LINKED PATCH PLACEMENT Other Q12H Senna 8.6 mg Oral Daily Labs reviewed: K+ 3.4 (L) BUN 48 (H) Glucose 106 mg/dL (H) GI: last BM 11/27, creamy, fecal incontinence Skin: Karlos Score: 15, skin intact, no edema noted Malnutrition Diagnosis: Malnutrition Severity: Severe Protein-Calorie Malnutrition (POA) Etiology of Malnutrition: Chronic Illness as evidenced by clinical characteristics: Decrease in Energy: Less than 75% energy intake compared to estimated energy needs for greater than or equal to 1 month Loss of Subcutaneous Fat: Severe Loss of Muscle Mass: Severe [Based on the AND/ASPEN Malnutrition Criteria 2012] Dolores Holley RDN,LD, BUFFING WHEEL OPERATOR Page: [phone] Phone: [phone] Please refer to Dietitian Technical Specialist in [email or web address] for daily RD coverage. Acute Physical Therapy Treatment Prior to Admission [facility] score(s): PRIOR LEVEL AM-PAC Mobility Raw Score: 24 PRIOR LEVEL AM-PAC Activity Raw Score: 24 Current AM-PAC score(s): CURRENT AM-PAC Mobility Raw Score: 15 Based on the above AM-PAC score(s) and PT clinical judgment, patient is a good candidate for discharge to Assisted Facility Supporting Factors (would benefit from skilled therapy services): Impaired functional status, Impaired cognitive status, Impaired self-care abilities, Assistance needed with functional mobility, Fall risk, Recent decline in self-care abilities, Recent decline in cognitive function, Patient status is anticipated to be appropriate to tolerate inpatient rehab therapy requirements at time of discharge from acute care Mobility equipment available at home: straight cane, 4 wheeled walker, 2 wheeled walker ADL equipment available at home: shower chair, grab bars Equipment needed for discharge: to be determined Current therapy frequency recommendation in acute: Therapy Frequency: 5 times a week Precautions and Weightbearing Status: Existing Precautions/Restrictions: fall Telemetry Patient Safety Communication Prior to Visit: Nursing Subjective: Pt pleasantly confused, agreeable to participate Pain: General Pain Documentation (Adult, OB, Peds) Presence of Pain: denies pain/discomfort Objective/Observation: Vitals/Vitals Responses to Treatment: WFL (READ-ONLY/RETIRED) Respiratory Status O2 Device: room air Cognition Overall Cognitive Status: Impaired Arousal/Alertness: Delayed responses to stimuli Orientation Level: Oriented to person Following Commands: Follows one step commands with repetition, Follows one step commands with increased time, Follows commands greater than 75% of the time Safety Judgment: Decreased awareness of need for assistance, Decreased awareness of need for safety Extremity Assessments: See PT Evaluation flowsheet for Extremity Measurement updates. Skin and Edema: Balance: Standing Balance Static Standing-Level of Assistance: Contact guard Dynamic Standing-Level of Assistance: (min/mod) Standing-Balance Support: Gait belt Skilled Rationale: Positioning, Sequencing, Hand placement, Verbal cues, Full extension to upright positioning/posture, Finding/maintaining midline positioning Standing Balance Skilled Intervention/Details: Pt completed standing multiple times throughout session. Pt completed static standing with contact guard assist progressing to min/mod assist during dynamic standing balance task. Pt completed standing while completing visual scanning task and reaching outside base of support. Pt required frequent cues/assist for visual scanning. Mobility Assessment/Intervention: Transfer Assessment/Intervention: Sit to Stand Transfer [place] Level: Sit->Stand: minimum assist (75% patient effort) Assistive Device: Sit->Stand: gait belt Skilled Rationale: Positioning, Sequencing, Hand placement, Verbal cues Skilled Intervention/Details: Sit->Stand: Pt completed sit to stand multiple times throughout session with min assist, cues for safety and proper hand placement Gait/Functional Mobility Assessment/Intervention: Gait Assessment [place] Level: Gait: minimum assist (75% patient effort) (intermittent mod) Assistive Device: Gait: gait belt Ambulation Distance (Feet): (150 ft x 2) Gait Deviations Identified: decreased heidy, decreased gait speed, decreased heel strike, decreased step length, decreased stride length, decreased weight shifting Gait Skilled Rationale: verbal, upright posture, increase step length Skilled Intervention/Details - Gait: Pt completed gait training x 150 ft x 2 without a AD with min assist with intermittent mod assist due to generalized unsteadiness and intermittent LOB. Pt frequently reaching for furniture/landry for support. Stairs Assessment/Intervention: Outcome Score(s): CURRENT [facility] Basic Mobility Inpatient Short Form Turning over in bed: 3 - A Little Assistance Sitting/standing from chair: 3 - A Little Assistance Moving from lying on back to sittin - A Little Assistance Moving to and from bed to chair: 3 - A Little Assistance Walk in hospital room: 2 - A Lot of Assistance Climbing 3-5 steps with a railin - Total Assistance CURRENT [facility] Mobility Raw Score: 15 CURRENT [facility] Mobility Functional Limitation/Modifier: 57.70% Currently Impaired in Basic Mobility - CK Interventions: Assessment & Plan: Pt making good progress toward therapy goals, progressed endurance and standing balance/tolerance Patient Instruction/Education this session: role of PT and PT plan of care Plan for next session: Continue to progress functional mobility, balance and endurance Acute PT Goals Plan of Care by Brianda Torres PT at 11/27/2022 11:50 AM Version 1 of 1 Problem: PT - Balance/Coordination/Neuro Re-Education Goal: Standing Balance Description: Pt will score >45/56 on scott balance assessment to demonstrate low fall risk and safety with dynamic balance tasks. Outcome: Progressing Toward Goal Problem: PT - Mobility Goal: Ambulation Description: Pt will ambulate 150 feet with out an assistive device with supervision to improve ability to navigate home environment. Outcome: Progressing Toward Goal Problem: PT - Transfers Goal: Supine <-> Sit Description: Pt will perform bed mobility with flat bed & no rail with modified independence in order to improve functional mobility and safety. Outcome: Progressing Toward Goal Goal: Sit <-> Stand Description: Pt will perform sit to/from stand transfers with supervision with least restrictive device in order to improve functional mobility and safety. Outcome: Progressing Toward Goal PT treatment consisted of Therapeutic Activity, Therapeutic Procedure, Gait/Stair Training and Neuro Muscle Re-Education to work and progress towards above goal(s). Treating Therapist: Brianda Torres PT Additional Details: Co-evaluation/co-treatment performed?: No simultaneous skilled care performed I used facemask, protective eye shield, and gloves in today's patient interaction. Patient location at end of session: chair Alarms on at end of session: chair alarm Needs in reach. Time In: 1047 Time Out: 1111 Total Visit Time: 24 minutes Total Treatment Time (skilled, billable minutes): 24 minutes Upon discontinuation of Acute Care Physical Therapy Services or patient discharge from the hospital this note represents the current Physical Therapy Discharge Summary. Neurovascular Stroke Service Intracerebral Hemorrhage Note IDENTIFYING INFORMATION Juli Shook MR# [id number] 11/27/2022 HISTORY OF PRESENT ILLNESS Juli Shook is a 77 y.o. right-handed male smoker with a history of CAD, HTN, and Factor V Leiden (recurrent DVTs s/p IVC filter 2016) on coumadin, prior left frontal intracerebral hemorrhage 12/2018 ([facility], CTA neg) who on 11/19/21 developed symptoms of severe headache and nausea. He presented to [facility] where CT brain showed a 3m right occipital intracerebral hemorrhage with IVH. INR 2.9. He was given Vitamin K. He was transferred to [facility] ER and on arrival NIHSS was 0. INR 1.8 and he was given Kcentra. CT angiogram head/neck shows increased vascularity adjacent to tentorium, possible dAVF. NSG consulted. The pateint was started on cardene gtt and admitted to the [facility]. INTERVAL HISTORY 11/20: repeat CTH pending, MRI brain P 11/21: Tx to Med surg, lisinopril increased, imaging reviewed 11/22: confusion overnight, lisinopril increased, cardene gtt resumed due to SBP > 200, repeat CTH pending, family updated via phone 11/23: Tmax overnight 102, CXR and UA unremarkable, blood cultures, Covid/flu swabs pending. Empiric antibiotics initiated 11/24: Afebrile overnight. Blood cultures NGTD. BP elevated overnight, increased hydralazine to 50 mg TID. Coughing with oral intake, made NPO, speech to re-evaluate 11/25: Pt coughing up thick elkins secretions, O2 stable on 2L NC. Repeat CXR pending. Vanc stopped. Procal, VBG w/ lactate obtained. Lower respiratory culture pending. Hydralazine increased. 11/26: Low grade fevers overnight. Continue IV Cefepime. Hydralazine changed to Coreg for BP control. 11/27: No acute events. PHYSICAL EXAM Gen: awake, alert, NAD HEENT: normocephalic, no scalp lesions or tenderness, PERRLA, EOMI Neck: trachea midline CV: +S1S2, RRR, no m/r/g Lungs: LCTA bilaterally with equal chest rise Abd: soft, nontender, nondistended, +BS x4 quadrants Extrem: Warm and well perfused, no cyanosis, clubbing, edema Neuro: Oriented x3, ROWLEY x4, sensation intact and equal bilaterally. CN II - All visual young intact CN II/III - PERRLA CN III/IV/ - EOMI CN V - Face symmetric CN VII - Facial movement intact and symmetrical bilaterally CN VIII - Hearing intact CN X - Cough present CN XI - muscular movement of shoulders and sternocleidomastoid muscles intact and equal bilaterally CN XII - midline protrusion of tongue MOTOR EXAMINATION: BLE weakness NIHSS Provider NIH Stroke Scale NIH Interval (Provider): daily NIH Level of Conciousness (Provider): 0 NIH LOC Questions (Provider): 0 NIH LOC Commands (Provider): 0 NIH Best Gaze (Provider): 0 NIH Visual (Provider): 0 NIH Facial Palsy (Provider): 0 NIH Left Arm Motor (Provider): 0 NIH Right Arm Motor (Provider): 0 NIH Left Leg Motor (Provider): 0 NIH Right Leg Motor (Provider): 0 NIH Limb Ataxia (Provider): 0 NIH Sensory (Provider): 0 NIH Best Language (Provider): 0 NIH Dysarthria (Provider): 0 NIH Extinction and Inattention (Provider): 0 NIH Total Score (Provider): 0 Intracerebral Hemorrhage Volume Intracerebral Hemorrhage Score Score 30 Day Mortality following ICH 0 0% Mortality 1 13% Mortality 2 26% Mortality 3 72% Mortality 4 97% Mortality 5 100% Mortality ASSESSMENT AND PLAN Neuro: Coumadin related Acute right occipital Intracerebral hemorrhage CTH:Stable Rt occipital hemorrhage with extension into the Rt lateral ventricle. Thin SDH, trace SAH. 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 Right thyroid lobe heterogeneous lesion MRI brain: Rt IPH w/ IVH. Scattered SAH, may be d/t chronic hemosiderin standing. Area of encephalomalacia in left frontal lobe. 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 MRA brain: No AVM or dAVF Repeat CTH 11/22 Stable ECHO TTE EF 65-70%, no significant valvular disease LDL 48, A1c 5.6 -Aspirin 81 mg, discontinue when anticoagulation is initiated. -Eliquis (2.5 mg BID) start post hemorrhage day 10 on 11/30 (AC is for Factor V Leiden, hx of multiple PE/DVT) -Follow up MRI imaging in 8-12 wks to assess for underlying lesion. -Follow up with heme in 1 month Hemorrhagic Stroke Core Measures -NHISS on admission 0 -Patient has been started on Mechanical (SCD's) and Pharmacological (SQ heparin) DVT prophylaxis will be started after stable HCT. -Antiplatelet therapy is not indicated. -Anticoagulation therapy not indicated in hemorrhagic stroke -Patients LDL 48 and HgbA1c 5.6 were checked and the patient will be discharged on a lipid lowering Statin medication if LDL is greater than 100. -Dysphagia screening ordered, and will be completed prior to patient receiving oral intake. -Stroke education booklet has been provided both written and verbal education to the patient and family regarding hemorrhagic strokes. We have reviewed the patient's personal modifiable risk factors including: HTN as well as education on reducing these risk factors. -Patient is being assessed for Rehab by PT/OT/Speech and PM&R if indicated. LLL Pneumonia:Tmax overnight 11/23 102, CXR and UA unremarkable. Patient with elkins, thick productive sputum on 11/25 -Lower respiratory culture negative, likely contaminant -Repeat CXR 11/25 with patchy atelectasis in the LLL -Continue IV Cefepime, stop on 11/29. Switch to ciprofloxacin if discharges to SNF Dysphagia: resolved -initially passed bedside swallow on admission, began coughing with oral intake on 11/24, made NPO with plans for speech to re-eval -cleared for regular diet with thin liquids 11/25 Dementia (POA): -Continue home Buspar -Discussed delirium with patient's son 11/22. Son reports has had cognitive decline and has issues with short term memory. -Delirium likely secondary to acute illness, hospitalization in addition to baseline dementia. Delirium precautions. Melatonin at bedtime. Seroquel at bedtime PRN. 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 Right thyroid lobe heterogeneous lesion: Incidental seen on CTA brain/neck -OP follow up with PCP for non-emergent thyroid ultrasound Juli Shook was recommended to discharge to [facility] but will likely be discharged to SNF close to home. Laney Carcamo, MAIL DISTRIBUTION SCHEME EXAMINER-IRONWORKER [employer] 11/27/2022 1:49 PM VITAL SIGNS Temp: [97.6 F (36.4 C)-98.6 F (37 C)] 97.6 F (36.4 C) Pulse (Heart Rate): [68-84] 68 Resp Rate: [20-23] 20 BP: (97-140)/(53-69) 97/53 O2 Sat (%): [91 %-96 %] 96 % IMAGING/DIAGNOSTIC STUDIES XR CHEST PORTABLE Final Result IMPRESSION: Patchy atelectasis at the left base. No other abnormality. CHEST PORTABLE Final Result IMPRESSION: No acute cardiopulmonary disease CHEST PORTABLE Final Result IMPRESSION: Stable chest. HEAD WITHOUT CONTRAST Final Result IMPRESSION: No interval change when compared to CT head November 20, 2022. CARDIOGRAM Final Result MRI ARTERIOGRAM BRAIN WITHOUT CONTRAST Final Result IMPRESSION: No evidence of AVM or dural aVF. No significant intracranial arterial stenosis or occlusion. BRAIN WITH AND WITHOUT CONTRAST Final Result IMPRESSION: Right occipital parenchymal hemorrhage is again noted with intraventricular extension. T1 hyperintensity associated with the hematoma and in the dependent right cerebral hemisphere. No definite underlying parenchymal enhancement. Consider follow-up imaging in 8-12 weeks to better assess for underlying lesion. Scattered susceptibility artifact in multiple sulci and cerebellar folia, bilateral scattered subarachnoid hemorrhage. While this may all represent acute subarachnoid hemorrhage, cannot exclude a degree of underlying chronic hemosiderin staining. Small foci of mild diffusion restriction in the right frontal and parietal lobes, and most prominently in the left temporal lobe. These may be artifactual due to adjacent subarachnoid hemorrhage, although could represent small subacute infarcts. Prominent area of encephalomalacia in the left frontal lobe with apparent chronic hemosiderin staining. Small amount of enhancement centrally, likely representing an area of scarring. 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 CHEST PORTABLE Final Result IMPRESSION: No acute cardiopulmonary disease HEAD WITHOUT CONTRAST Final Result IMPRESSION: 1. Stable appearance of the right occipital parenchymal hematoma. 2. Stable degree of ventricular extension of blood products without progressing hydrocephalus. 3. Stable small volume of subdural blood products and subarachnoid hemorrhage. ANGIO BRAIN/NECK Final Result IMPRESSION: 1. No spot sign, large vessel arterial occlusion, dissection or aneurysm. 2. 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 Recommend further evaluation with MRA brain. 3. Right thyroid lobe heterogeneous lesion. Recommend correlation with prior imaging if available, or may consider nonemergent thyroid ultrasound. I personally viewed and interpreted these images and I have reviewed and approved this report. STROKE HEAD-STROKE ALERT ONLY Final Result IMPRESSION: 1. Right occipital intraparenchymal hemorrhage with intraventricular extension. Thin subdural hemorrhage and trace subarachnoid hemorrhage. 2. 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 A Critical finding has been discussed with Chris Contreras MD with a read back to Imelda Milton MD on 11/20/2022 5:22 AM . I personally viewed and interpreted these images and I have reviewed and approved this report. BRAIN WITH AND WITHOUT CONTRAST (Results Pending) MEDICATIONS amLODIPine 10 mg Oral Daily aspirin 81 mg Oral Daily Atorvastatin 40 mg Oral Daily busPIRone 5 mg Oral Daily carveDILOL 6.25 mg Oral Q12H ceFEPIme (MAXIPIME) IVPB 2 g Intravenous Q12HNS enoxaparin 40 mg Subcutaneous Daily Ipratropium-albuterol 3 mL Nebulization Q6HNS Lisinopril 40 mg Oral Daily Melatonin 3 mg Oral Daily early evening nicotine 1 patch Transdermal Q24H And VERIFY LINKED PATCH PLACEMENT Other Q12H Senna 8.6 mg Oral Daily Associated attestation - Pancho Franks MD - 11/27/2022 3:27 PM EST I have independently seen and examined the patient on 11/27/22. I agree with the history, examination, assessment and plan as documented by the HOME PARAPROFESSIONAL with my changes/additions added. HPI: Patient is a 77 yo M with a hx of CAD, HTN, factor V Leiden on warfarin, DVT s/p IVC filter, prior hx of L frontal ICH who presented with severe headache and nausea. Found to have R occipital ICH with IVH. S/p K centra and Vitamin K for reversal. MRA was negative for dAVF. NSGY consulted no acute surgical intervention Interval History: No acute overnight events Scheduled Meds: amLODIPine 10 mg Oral Daily aspirin 81 mg Oral Daily Atorvastatin 40 mg Oral Daily busPIRone 5 mg Oral Daily carveDILOL 6.25 mg Oral Q12H ceFEPIme (MAXIPIME) IVPB 2 g Intravenous Q12HNS enoxaparin 40 mg Subcutaneous Daily Ipratropium-albuterol 3 mL Nebulization Q6HNS Lisinopril 40 mg Oral Daily Melatonin 3 mg Oral Daily early evening nicotine 1 patch Transdermal Q24H And VERIFY LINKED PATCH PLACEMENT Other Q12H Senna 8.6 mg Oral Daily Labs: Lipid panel: Lab Results Component Value Date CHOLESTEROL 114 11/20/2022 TRIG 63 11/20/2022 HDL 53 11/20/2022 LDLCALC 48 11/20/2022 CHOLTOTALHDL 2.2 11/20/2022 NHCHOL 61 11/20/2022 Chem 7: Lab Results Component Value Date SODIUM 137 11/27/2022 POTASSIUM 3.4 (L) 11/27/2022 CHLORIDE 107 11/27/2022 CO2 20 (L) 11/27/2022 GLUCOSE 106 (H) 11/27/2022 BUN 48 (H) 11/27/2022 CREATSERUM 0.90 11/27/2022 BUNCREARATIO 53 11/27/2022 OSMOLALITY 299 11/27/2022 GFR 87 11/27/2022 CBC: Lab Results Component Value Date WBC 12.99 (H) 11/27/2022 HGB 13.5 11/27/2022 HCT 41.1 11/27/2022 PLATELET 301 11/27/2022 MCV 88.0 11/27/2022 DIFF: Lab Results Component Value Date RBCDISTRIBU 13.5 11/27/2022 GRNLOCYT 76.6 11/20/2022 LYMPHOCYT 13.2 11/20/2022 MONOCYTELEC 9.6 11/20/2022 EOSINOPHILS 0.1 11/20/2022 BASOPHILS 0.2 11/20/2022 LYMPHOCYTABS 1.84 11/20/2022 EOSINOPHLABS <0.04 11/20/2022 PLATELET 301 11/27/2022 MPV 10.5 11/27/2022 Physical Exam: Vitals: 11/27/22 1328 BP: 97/53 Pulse: 68 Resp: 20 Temp: 97.6 F (36.4 C) GENERAL: no acute distress HEENT: normocephalic, atraumatic CARDIO: +S1S2, RRR, no edema PULM: Reduced breathing sounds at left lower base ABDOMINAL: soft, nontender, nondistended, active bowel sounds EXTREMITIES: no wounds nor lesions SKIN: no rash or obvious skin abnormalities VASCULAR: + distal pulses, capillary refill <3 seconds NEURO: Awake and alert, follows commands, pupils reactive to light, asymmetric face, dysarthria, left sided drift (LLE >RLE) Assessment and Plan: Neuro: Acute right occipital ICH in the setting of coagulopathy S/p Kcentra and Vit K for warfarin reversal - At very high risk for stroke, new DVT/PE given his hx of hypercoagulability. Plan to start Eliquis instead of Warfarin on hemorrhage day 10 (11/30). Dc ASA at that time - SBP <160, MAP >65. PRN Hydralazine and Labetalol - Neurochecks and NIHSS - Eunatremia eucarbia, euthermia and euvolemia - PT/OT/ELEMENTARY PRINCIPAL eval. Passed swallow eval Other medical problems: HTN: Lisinopril and Norvasc. Switched hydralazine to Coreg LLL Pneumonia: Will do 7 days of abx. On cefepime, switch to oral Ciprofloxacin if gets discharged before finishing the course of abx. Schedule duonebs. Target SpO2 >89% Tobacco use: Nicotine patch, counseling on smoking cessation DVT/PE S/p IVC filer. Plan for anticoagulation as above VTE prophylaxis: - SCDs - Chemical prophylaxis with subcutaneous Lovenox Acute deconditioning - PT/OT consulted and following - Mobility as tolerated Additional details and other supportive care as per the HOME PARAPROFESSIONAL note below. Pancho Franks MD Neurovascular Attending Acute Occupational Therapy Treatment Prior to Admission AM-PAC Score: PRIOR LEVEL AM-PAC Activity Raw Score: 24 PRIOR LEVEL AM-PAC Mobility Raw Score: 24 Current AM-PAC score(s): CURRENT AM-PAC Activity Raw Score: 15 Based on the above AM-PAC score(s), and OT clinical judgment, discharge destination recommendation is: Assisted Facility Barriers to discharge home: Patient needs assistance with ADLs, Patient needs assistance with IADLs (see note below), Patient needs assistance with functional mobility Mobility equipment available at home: straight cane, 4 wheeled walker, 2 wheeled walker ADL equipment available at home: shower chair, grab bars Equipment recommendations for discharge: to be determined Current therapy frequency recommendation(s) in acute: 5 times a week Precautions and Weightbearing Status: OT Existing Precautions/Restrictions: fall Telemetry Patient Safety Communication Prior to Visit: Nursing Subjective: Pt agreeable to OT session and states I guess when therapist asked to work with him. Pt unable to tell therapist any goals he has for therapy or what he need to work on Pain: General Pain Documentation (Adult, OB, Peds) Presence of Pain: denies pain/discomfort Objective/Observation: Vitals/Vitals Responses to Treatment: VSS (READ-ONLY/RETIRED) Respiratory Status O2 Device: room air Cognition Overall Cognitive Status: Impaired Arousal/Alertness: Delayed responses to stimuli Orientation Level: Oriented to person, Oriented to place, Oriented to time Following Commands: Follows one step commands with increased time, Follows one step commands with repetition Safety Judgment: Decreased awareness of need for safety, Decreased awareness of need for assistance Awareness of Errors: Assistance required to identify errors made, Assistance required to correct errors made Deficits: Decreased awareness of deficits Attention Span: Attends with cues to redirect Cognition Comments: Improved processing and attention this date, though still with processing impairments. Assess also limited due to [place] ADL Assessment/Intervention: ADLs: Grooming Assistance: Contact guard assist Grooming Location: standing at sink Grooming Deficit: Activity tolerance, Generalized weakness, Balance, Wash/dry hands, Oral care, Brushing hair Grooming Skilled Rationale (Verbal/Tactile/Visual/Demonstrati on): Setup, Supervision Grooming Intervention/Details: Pt completed oral hygiene and hair grooming with improved initiation and problem solving this date. Pt then completed hand hygiene post toileting with CGA. Toilet Assistance: Moderate Toileting Location: toilet Toileting Deficit: Grab bar use Toilet Skilled Rationale (Verbal/Tactile/Visual/Demonstrati on): Setup, Supervision, Facilitate postural control Toileting Intervention/Details: Pt transferred on and off toilet with min A and max cues for grab bar us and not use of IV pole to transfer. Pt stood from toilet with min A. despite asking multiple times pt reports that he had wiped or was good but noted not to have used toilet paper at all. Max A for [place] [facility] in standing Balance: Sitting Balance Static Sitting-Level of Assistance: Standby Dynamic Sitting-Level of Assistance: Contact guard Standing Balance Static Standing-Level of Assistance: Contact guard Dynamic Standing-Level of Assistance: Minimum assistance Standing-Balance Support: Gait belt Skilled Rationale: Verbal cues Standing Balance Skilled Intervention/Details: Pt stood at sink for grooming tasks x2-3 min and then for hand hygiene following toileting with CGA Mobility Assessment/Intervention: Supine to Sit Mobility [place] Level: Supine->Sit: stand-by assist Bed Features/Set-up: Supine->Sit: Head of bed elevated, Use of bed rail Skilled Rationale: Verbal cues, Positioning, Initiation and execution of task Skilled Intervention/Details: Supine->Sit: Improved initiation after innstructions provided this date. Min increased time to transfer to sit up Transfer Assessment/Intervention: Sit to Stand Transfer [place] Level: Sit->Stand: minimum assist (75% patient effort) Assistive Device: Sit->Stand: gait belt (EOB) Skilled Rationale: Verbal cues, Hand placement Skilled Intervention/Details: Sit->Stand: cues to push from EOB. Completed x2 from EOB and x1 from toilet. Cues for anterior weight shift due to retropulsion Stand to Sit Transfer [place] Level: Stand->Sit: minimum assist (75% patient effort) Assistive Device: Stand->Sit: gait belt, armed chair Skilled Rationale: Verbal cues, Hand placement, Controlled descent for sitting Skilled Intervention/Details: Stand->Sit: cues for proximity to chair and to reach back, fair eccentric control Functional Mobility: Functional Mobility [place] Level: Functional Mobility/Gait: minimum assist (75% patient effort) Assistive Device: Functional Mobility/Gait: gait belt Functional Mobility Distance: Distance needed to access restroom Functional Mobility Deficits: Balance, Activity tolerance, Narrow base of support Functional Mobility Skilled Rationale: Verbal cues Skilled Intervention/Details - Functional Mobility/Gait: Max safety cues not to reach out for objects to steady self and for safety with IV pole Outcome Score(s): CURRENT [facility] Daily Activity Inpatient Short Form Putting on/Taking Off Lower Body Clothin - A Lot of Assistance Bathin - A Lot of Assistance Toiletin - A Lot of Assistance Putting on/Taking Off Upper Body Clothin - A Little Assistance Groomin - A Little Assistance Eatin - A Little Assistance CURRENT [facility] Activity Raw Score: 15 CURRENT [facility] Activity Functional Limitation/Modifier: 56.46% Currently Impaired in Daily Activity - CK Assessment & Plan: Pt demonstrates increased activity tolerance, standing balance, cognition, problem solving during ADLs from previous session and is making good progress towards goals. Pt continues to present with deficits in balance, activity tolerance, cognition, safety and insight and requires 1- person assist for ADLs and functional transfer and mobility tasks. Pt requires continued skilled OT services to address functional deficits and maximize safety and independence in ADLs for return home with safely. Patient Instruction/Education this session: Patient Instruction: cues for initiation and problem solving, cues for safety during mobility Plan for next session: increased standing balance for ADLs at sink, functional cognition and vision training Acute OT Goals Plan of Care by Cynthia Kaba OT at 11/27/2022 8:07 AM Version 1 of 1 Problem: OT - ADLs Goal: Grooming Description: Pt will complete grooming in standing with modified independence for improved ability to safely complete ADLs. Outcome: Progressing Toward Goal Problem: OT - Endurance Goal: Endurance Functional Mobilty Around Home Description: Pt will complete distance needed for common household mobility independently. Outcome: Progressing Toward Goal Problem: OT - Cognition Goal: Cognition simple ADL Description: Pt will demonstrate improved cognition, completing simple ADL task for 10 minutes with less than 25% cues required to maintain attention, sequencing and problem solving for improved safety and success at discharge destination. Outcome: Progressing Toward Goal OT treatment consisted of ADL retraining, balance training, bed mobility training and transfer training to work and progress towards above goal(s). Treating Therapist: Cynthia Kaba OT Additional Details: Co-evaluation/co-treatment performed?: No simultaneous skilled care performed I used gloves and facemask in today's patient interaction. Patient location at end of session: chair Alarms on at end of session: chair alarm Needs in reach. Time In: 745 Time Out: 813 Total Visit Time: 28 minutes Total Treatment Time (skilled, billable minutes): 28 minutes Upon discontinuation of Acute Care Occupational Therapy Services or patient discharge from the hospital this note represents the current Occupational Therapy Discharge Summary. Summary: SNF referral Placement Plan Expected Discharge Date: 11/27/2022 Referred Level of Care: SNF Patient Choice for Post-Acute Providers Barriers: transportation, medical stability, bed available Current Referrals and Status 1. [facility] SW called sonJayjay provided update on discharge plans and available facilities. Jayjay asked if a referral was sent to [facility] which is very close to his home. SW did not see this referral and completed referral for this SNF. Family is aware of the difference between the IPR vs. SNF. The choice for [facility] has only viewed the referral but son would prefer [facility] instead of patient going to [facility]. SW will continue to follow. ONELIA Stratton, [facility] [place] Nitrator Operator [phone] 11/26/22 1321 Assessment Type ## Assessment-Evaluation initial RT Intervention Assessment-Evaluation Assessment Type general RT Reason for Assessment new therapy order Patient Ed Activity Done initial instruction Care Plan Completed yes Vitals, Reports, and Results Pulse (Heart Rate) 70 Resp Rate (!) 32 RT Acuity Assessment Tool RT Protocol Assessment initial mMRC Dyspnea Score 0 RT Modified Yohan Score 0 Combined Dyspnea Score 0 RT Acuity Level 5 Current Orders: Duoneb Q6 Tx Indication: Per Respiratory Therapy Directed Asthma and COPD Inhaler Protocol: acuity level 5 Respiratory Plan of Care: Will continue Duoneb Q6 x 24 hours, then transition to prn as long as patient's respiratory status remains stable. The patient's respiratory plan of care was updated by Molly Esparza RCP 11/26/2022 1:22 PM Neurovascular Stroke Service Intracerebral Hemorrhage Note IDENTIFYING INFORMATION Juli Shook MR# [id number] 11/26/2022 HISTORY OF PRESENT ILLNESS Juli Shook is a 77 y.o. 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 On 11/19 pt complained of severe headache and wanted to throw up. Patient was taken to [facility]. CTH showed 3cm Rt Occipital hemorrhage with extension into the Rt lateral ventricle and old L frontal/cerebellar hemispheric strokes. WBC 15.6, INR 2.9. Vitamin K given. Patient given 2 doses of Labetalol for BP in hxs014's. On arrival to [facility], SBP in 180's. Glucose 111. NIHSS 0. INR 1.8 here, given Kcentra. HCT showed stable Rt Occipital hemorrhage with extension into the Rt lateral ventricle. 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 Right thyroid lobe heterogeneous lesion. He was started on Nicardipine & admitted to [facility]. INTERVAL HISTORY 11/20: repeat CTH pending, MRI brain P 11/21: Tx to Med surg, lisinopril increased, imaging reviewed 11/22: confusion overnight, lisinopril increased, cardene gtt resumed due to SBP > 200, repeat CTH pending, family updated via phone 11/23: Tmax overnight 102, CXR and UA unremarkable, blood cultures, Covid/flu swabs pending. Empiric antibiotics initiated 11/24: Afebrile overnight. Blood cultures NGTD. BP elevated overnight, increased hydralazine to 50 mg TID. Coughing with oral intake, made NPO, speech to re-evaluate 11/25: Pt coughing up thick elkins secretions, O2 stable on 2L NC. Repeat CXR pending. Vanc stopped. Procal, VBG w/ lactate obtained. Lower respiratory culture pending. Hydralazine increased. 11/26: Low grade fevers overnight. Continue IV Cefepime. Hydralazine changed to Coreg for BP control. PHYSICAL EXAM Gen: awake, alert, NAD HEENT: normocephalic, no scalp lesions or tenderness, PERRLA, EOMI Neck: trachea midline, no JVD CV: +S1S2, RRR, no m/r/g Lungs: LCTA bilaterally with equal chest rise Abd: soft, nontender, nondistended, +BS x4 quadrants Extrem: Warm and well perfused, no cyanosis, clubbing, edema, 2+ pulses bilaterally Neuro: Oriented x3, [place] x4, sensation intact and equal bilaterally. CN II - All visual young intact CN II/III - PERRLA CN III/IV/ - EOMI CN V - Face symmetric CN VII - Facial movement intact and symmetrical bilaterally CN VIII - Hearing intact CN X - Cough present CN XI - muscular movement of shoulders and sternocleidomastoid muscles intact and equal bilaterally CN XII - midline protrusion of tongue MOTOR EXAMINATION: BLE weakness, able to antigravity with drift NIHSS Provider NIH Stroke Scale NIH Interval (Provider): daily NIH Level of Conciousness (Provider): 0 NIH LOC Questions (Provider): 0 NIH LOC Commands (Provider): 0 NIH Best Gaze (Provider): 0 NIH Visual (Provider): 0 NIH Facial Palsy (Provider): 0 NIH Left Arm Motor (Provider): 0 NIH Right Arm Motor (Provider): 0 NIH Left Leg Motor (Provider): 2 NIH Right Leg Motor (Provider): 2 NIH Limb Ataxia (Provider): 0 NIH Sensory (Provider): 0 NIH Best Language (Provider): 0 NIH Dysarthria (Provider): 0 NIH Extinction and Inattention (Provider): 0 NIH Total Score (Provider): 4 Intracerebral Hemorrhage Volume Intracerebral Hemorrhage Score Score 30 Day Mortality following ICH 0 0% Mortality 1 13% Mortality 2 26% Mortality 3 72% Mortality 4 97% Mortality 5 100% Mortality ASSESSMENT AND PLAN Neuro: Coumadin related Acute right occipital Intracerebral hemorrhage CTH:Stable Rt occipital hemorrhage with extension into the Rt lateral ventricle. Thin SDH, trace SAH. 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 Right thyroid lobe heterogeneous lesion MRI brain: Rt IPH w/ IVH. Scattered SAH, may be d/t chronic hemosiderin standing. Area of encephalomalacia in left frontal lobe. 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 MRA brain: No AVM or dAVF Repeat CTH 11/22 Stable ECHO TTE EF 65-70%, no significant valvular disease LDL 48, A1c 5.6 -Aspirin 81 mg, discontinue when anticoagulation is initiated. -Eliquis (2.5 mg BID) start hemorrhage day 10 on 11/30 (AC is for Factor V Leiden, hx of multiple PE/DVT) -Follow up MRI imaging in 8-12 wks to assess for underlying lesion. -Follow up with heme in 1 month Hemorrhagic Stroke Core Measures -NHISS on admission 0 -Patient has been started on Mechanical (SCD's) and Pharmacological (SQ heparin) DVT prophylaxis will be started after stable HCT. -Antiplatelet therapy is not indicated. -Anticoagulation therapy not indicated in hemorrhagic stroke -Patients LDL 48 and HgbA1c 5.6 were checked and the patient will be discharged on a lipid lowering Statin medication if LDL is greater than 100. -Dysphagia screening ordered, and will be completed prior to patient receiving oral intake. -Stroke education booklet has been provided both written and verbal education to the patient and family regarding hemorrhagic strokes. We have reviewed the patient's personal modifiable risk factors including: HTN as well as education on reducing these risk factors. -Patient is being assessed for Rehab by PT/OT/Speech and PM&R if indicated. LLL Pneumonia:Tmax overnight 11/23 102, CXR and UA unremarkable. Patient with elkins, thick productive sputum on 11/25 -blood cultures NGTD -Covid/flu swabs negative -cefepime and vancomycin initiated on 11/23 -MRSA screen negative, vancomycin discontinued 11/25 -Lower respiratory culture negative, likely contaminant -Procal WNL 0.24, VBG w/lactate stable -Repeat CXR 11/25 with patchy atelectasis in the LLL -Continue IV Cefepime Dysphagia: resolved -initially passed bedside swallow on admission, began coughing with oral intake on 11/24, made NPO with plans for speech to re-eval -cleared for regular diet with thin liquids 11/25 Dementia (POA): -Continue home Buspar -Discussed delirium with patient's son 11/22. Son reports has had cognitive decline and has issues with short term memory. -Delirium likely secondary to acute illness, hospitalization in addition to baseline dementia. Delirium precautions. Melatonin at bedtime. Seroquel at bedtime PRN. 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 Right thyroid lobe heterogeneous lesion -Incidental seen on CTA brain/neck -OP follow up with PCP for non-emergent thyroid ultrasound Juli Shook will likely be discharged to [facility] Ramez Irwin APRN-[employer] 11/26/2022 11:13 AM VITAL SIGNS Temp: [97.9 F (36.6 C)-99.9 F (37.7 C)] 99.5 F (37.5 C) Pulse (Heart Rate): [75-85] 79 Resp Rate: [22-43] 22 BP: (111-149)/(58-69) 149/69 O2 Sat (%): [91 %-94 %] 94 % IMAGING/DIAGNOSTIC STUDIES XR CHEST PORTABLE Final Result IMPRESSION: Patchy atelectasis at the left base. No other abnormality. CHEST PORTABLE Final Result IMPRESSION: No acute cardiopulmonary disease CHEST PORTABLE Final Result IMPRESSION: Stable chest. HEAD WITHOUT CONTRAST Final Result IMPRESSION: No interval change when compared to CT head November 20, 2022. CARDIOGRAM Final Result MRI ARTERIOGRAM BRAIN WITHOUT CONTRAST Final Result IMPRESSION: No evidence of AVM or dural aVF. No significant intracranial arterial stenosis or occlusion. BRAIN WITH AND WITHOUT CONTRAST Final Result IMPRESSION: Right occipital parenchymal hemorrhage is again noted with intraventricular extension. T1 hyperintensity associated with the hematoma and in the dependent right cerebral hemisphere. No definite underlying parenchymal enhancement. Consider follow-up imaging in 8-12 weeks to better assess for underlying lesion. Scattered susceptibility artifact in multiple sulci and cerebellar folia, bilateral scattered subarachnoid hemorrhage. While this may all represent acute subarachnoid hemorrhage, cannot exclude a degree of underlying chronic hemosiderin staining. Small foci of mild diffusion restriction in the right frontal and parietal lobes, and most prominently in the left temporal lobe. These may be artifactual due to adjacent subarachnoid hemorrhage, although could represent small subacute infarcts. Prominent area of encephalomalacia in the left frontal lobe with apparent chronic hemosiderin staining. Small amount of enhancement centrally, likely representing an area of scarring. 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 CHEST PORTABLE Final Result IMPRESSION: No acute cardiopulmonary disease HEAD WITHOUT CONTRAST Final Result IMPRESSION: 1. Stable appearance of the right occipital parenchymal hematoma. 2. Stable degree of ventricular extension of blood products without progressing hydrocephalus. 3. Stable small volume of subdural blood products and subarachnoid hemorrhage. ANGIO BRAIN/NECK Final Result IMPRESSION: 1. No spot sign, large vessel arterial occlusion, dissection or aneurysm. 2. 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 Recommend further evaluation with MRA brain. 3. Right thyroid lobe heterogeneous lesion. Recommend correlation with prior imaging if available, or may consider nonemergent thyroid ultrasound. I personally viewed and interpreted these images and I have reviewed and approved this report. STROKE HEAD-STROKE ALERT ONLY Final Result IMPRESSION: 1. Right occipital intraparenchymal hemorrhage with intraventricular extension. Thin subdural hemorrhage and trace subarachnoid hemorrhage. 2. 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 A Critical finding has been discussed with Chris Contreras MD with a read back to Imelda Milton MD on 11/20/2022 5:22 AM . I personally viewed and interpreted these images and I have reviewed and approved this report. BRAIN WITH AND WITHOUT CONTRAST (Results Pending) MEDICATIONS amLODIPine 10 mg Oral Daily aspirin 81 mg Oral Daily Atorvastatin 40 mg Oral Daily busPIRone 5 mg Oral Daily carveDILOL 6.25 mg Oral Q12H ceFEPIme (MAXIPIME) IVPB 2 g Intravenous Q12HNS enoxaparin 40 mg Subcutaneous Daily Ipratropium-albuterol 3 mL Nebulization Q6HNS Lisinopril 40 mg Oral Daily Melatonin 3 mg Oral Daily early evening nicotine 1 patch Transdermal Q24H And VERIFY LINKED PATCH PLACEMENT Other Q12H Senna 8.6 mg Oral Daily Associated attestation - Pancho Franks MD - 11/26/2022 4:27 PM EST I have independently seen and examined the patient on 11/26/22. I agree with the history, examination, assessment and plan as documented by the HOME PARAPROFESSIONAL with my changes/additions added. HPI: Patient is a 77 yo M with a hx of CAD, HTN, factor V Leiden on warfarin, DVT s/p IVC filter, prior hx of L frontal ICH who presented with severe headache and nausea. Found to have R occipital ICH with IVH. S/p K centra and Vitamin K for reversal. MRA was negative for dAVF. NSGY consulted no acute surgical intervention Interval History: Low grade fever overnight. Scheduled Meds: amLODIPine 10 mg Oral Daily aspirin 81 mg Oral Daily Atorvastatin 40 mg Oral Daily busPIRone 5 mg Oral Daily carveDILOL 6.25 mg Oral Q12H ceFEPIme (MAXIPIME) IVPB 2 g Intravenous Q12HNS enoxaparin 40 mg Subcutaneous Daily Ipratropium-albuterol 3 mL Nebulization Q6HNS Lisinopril 40 mg Oral Daily Melatonin 3 mg Oral Daily early evening nicotine 1 patch Transdermal Q24H And VERIFY LINKED PATCH PLACEMENT Other Q12H Senna 8.6 mg Oral Daily Labs: Lipid panel: Lab Results Component Value Date CHOLESTEROL 114 11/20/2022 TRIG 63 11/20/2022 HDL 53 11/20/2022 LDLCALC 48 11/20/2022 CHOLTOTALHDL 2.2 11/20/2022 NHCHOL 61 11/20/2022 Chem 7: Lab Results Component Value Date SODIUM 138 11/26/2022 POTASSIUM 3.5 11/26/2022 CHLORIDE 108 11/26/2022 CO2 21 11/26/2022 GLUCOSE 120 (H) 11/26/2022 BUN 48 (H) 11/26/2022 CREATSERUM 0.97 11/26/2022 BUNCREARATIO 49 11/26/2022 OSMOLALITY 302 11/26/2022 GFR 79 11/26/2022 CBC: Lab Results Component Value Date WBC 16.02 (H) 11/26/2022 HGB 13.9 11/26/2022 HCT 41.4 11/26/2022 PLATELET 297 11/26/2022 MCV 86.8 11/26/2022 DIFF: Lab Results Component Value Date RBCDISTRIBU 13.9 11/26/2022 GRNLOCYT 76.6 11/20/2022 LYMPHOCYT 13.2 11/20/2022 MONOCYTELEC 9.6 11/20/2022 EOSINOPHILS 0.1 11/20/2022 BASOPHILS 0.2 11/20/2022 LYMPHOCYTABS 1.84 11/20/2022 EOSINOPHLABS <0.04 11/20/2022 PLATELET 297 11/26/2022 MPV 10.7 11/26/2022 Physical Exam: Vitals: 11/26/22 1542 BP: 132/63 Pulse: 69 Resp: 20 Temp: 98.6 F (37 C) GENERAL: no acute distress HEENT: normocephalic, atraumatic CARDIO: +S1S2, RRR, no edema PULM: Reduced breathing sounds at left lower base ABDOMINAL: soft, nontender, nondistended, active bowel sounds EXTREMITIES: no wounds nor lesions SKIN: no rash or obvious skin abnormalities VASCULAR: + distal pulses, capillary refill <3 seconds NEURO: Awake and alert, follows commands, pupils reactive to light, asymmetric face, dysarthria, left sided drift (LLE >RLE) Assessment and Plan: Neuro: Acute right occipital ICH in the setting of coagulopathy S/p Kcentra and Vit K for warfarin reversal - At very high risk for stroke, new DVT/PE given his hx of hypercoagulability. Plan to start Eliquis instead of Warfarin on hemorrhage day 10 (11/30). Dc ASA at that time - SBP <160, MAP >65. PRN Hydralazine and Labetalol - Neurochecks and NIHSS - Eunatremia eucarbia, euthermia and euvolemia - PT/OT/ELEMENTARY PRINCIPAL eval. Passed swallow eval Other medical problems: HTN: Lisinopril and Norvasc. Switch hydralazine to Coreg LLL Pneumonia: Having cough with thick secretions, continue Cefepime. Dced Vanc. MRSA swab negative, Schedule duonebs. Target SpO2 >89% Tobacco use: Nicotine patch, counseling on smoking cessation DVT/PE S/p IVC filer. Plan for anticoagulation as above VTE prophylaxis: - SCDs - Chemical prophylaxis with subcutaneous Lovenox Acute deconditioning - PT/OT consulted and following - Mobility as tolerated Additional details and other supportive care as per the HOME PARAPROFESSIONAL note below. Pancho Franks MD Neurovascular Attending Nicotine Dependence Use per Day: 3 pipes per day Patient is not ready to quit Quit Date: TBD, smoking cessation encouraged Discussed pharmacotherapy. Offered Rx to be sent to pharmacy of choice however patient declined We discussed health risks and resources. Offered referral to [facility] Smoking Cessation clinic (AMB REFERRAL TO SMOKING CESSATION), patient declined Spent 3-5 minutes counseling on this topic Acute Physical Therapy Treatment Prior to Admission AMPA score(s): PRIOR LEVEL AM-PAC Mobility Raw Score: 24 PRIOR LEVEL AM-PAC Activity Raw Score: 24 Current AM-PAC score(s): CURRENT AM-PAC Mobility Raw Score: 15 Based on the above AM-PAC score(s) and PT clinical judgment, patient is a good candidate for discharge to Inpatient Rehab Facility Supporting Factors (would benefit from skilled therapy services): Impaired functional status, Impaired cognitive status, Impaired self-care abilities, Assistance needed with functional mobility, Fall risk, Recent decline in self-care abilities, Recent decline in cognitive function, Patient status is anticipated to be appropriate to tolerate inpatient rehab therapy requirements at time of discharge from acute care Mobility equipment available at home: straight cane, 4 wheeled walker, 2 wheeled walker ADL equipment available at home: shower chair, grab bars Equipment needed for discharge: to be determined Current therapy frequency recommendation in acute: Therapy Frequency: 5 times a week Precautions and Weightbearing Status: Existing Precautions/Restrictions: fall Telemetry Patient Safety Communication Prior to Visit: Nursing Subjective: Pt with minimal vocalizations throughout session, productive cough and increased WOB, MD and RN aware Pain: General Pain Documentation (Adult, OB, Peds) Presence of Pain: denies pain/discomfort Objective/Observation: Vitals/Vitals Responses to Treatment: WFL Respiratory Status O2 Device: nasal cannula Flow (L/min): 2 Cognition Overall Cognitive Status: Impaired Arousal/Alertness: Delayed responses to stimuli Orientation Level: Oriented to person, Oriented to place, Oriented to time Following Commands: Follows one step commands with repetition, Follows one step commands with increased time Safety Judgment: Decreased awareness of need for assistance, Decreased awareness of need for safety Cognition Comments: signifcant delayed procressing and poor initiation Extremity Assessments: See PT Evaluation flowsheet for Extremity Measurement updates. Skin and Edema: Balance: Standing Balance Static Standing-Level of Assistance: Contact guard Dynamic Standing-Level of Assistance: Moderate assistance Standing-Balance Support: Gait belt Skilled Rationale: Sequencing, Hand placement, Verbal cues, Positioning, Full extension to upright positioning/posture, Finding/maintaining midline positioning Standing Balance Skilled Intervention/Details: Pt completed static standing with contact guard assist, initially attempting to reach for wall for support. Pt completed dynamic standing balance task including marching and modified romberg stance with eyes open/closed and reaching outside base of support to further challenge balance. pt tolerated standing up to 2-3 minutes each attempt before reporting thats enough and sitting, however denied SOB or fatigue despite increased WOB. Mobility Assessment/Intervention: Transfer Assessment/Intervention: Sit to Stand Transfer [place] Level: Sit->Stand: minimum assist (75% patient effort) Assistive Device: Sit->Stand: gait belt Skilled Rationale: Positioning, Sequencing, Hand placement, Verbal cues Skilled Intervention/Details: Sit->Stand: Pt completed multiple sit to stand transfers all with min assist, cues for proper hand placement and initiation cues. Pt required Increased time/cues for all transfers Gait/Functional Mobility Assessment/Intervention: Gait Assessment [place] Level: Gait: moderate assist (50% patient effort) Assistive Device: Gait: gait belt Ambulation Distance (Feet): 75 Gait Deviations Identified: decreased heidy, decreased gait speed, decreased heel strike, decreased step length, decreased stride length, decreased weight shifting, wide base of support Gait Skilled Rationale: verbal, upright posture, increase step length Skilled Intervention/Details - Gait: Pt completed gait training with poor initiation, wide CELIA and unsteadiness. Pt frequently reaching for wall/furniture for support. Pt with increased fatigue and unable to progress further gait training Stairs Assessment/Intervention: Outcome Score(s): CURRENT AM-PAC Basic Mobility Inpatient Short Form Turning over in bed: 3 - A Little Assistance Sitting/standing from chair: 3 - A Little Assistance Moving from lying on back to sittin - A Little Assistance Moving to and from bed to chair: 3 - A Little Assistance Walk in hospital room: 2 - A Lot of Assistance Climbing 3-5 steps with a railin - Total Assistance CURRENT [facility] Mobility Raw Score: 15 CURRENT [facility] Mobility Functional Limitation/Modifier: 57.70% Currently Impaired in Basic Mobility - CK Interventions: Intervention 1 Intervention Name: Bilateral LE ther ex Sets/Reps/Duration: Pt educated in bilateral LE therapeutic exericses in sitting in all planes Assessment & Plan: Pt making slow progress toward therapy goals this date, increased fatigue Patient Instruction/Education this session: role of PT and PT plan of care Plan for next session: Continue to progress endurance and independence with functional mobility Acute PT Goals Plan of Care by Brianda Torres PT at 11/25/2022 11:40 AM Version 1 of 1 Problem: PT - Balance/Coordination/Neuro Re-Education Goal: Standing Balance Description: Pt will score >45/56 on scott balance assessment to demonstrate low fall risk and safety with dynamic balance tasks. Outcome: Progressing Toward Goal Problem: PT - Mobility Goal: Ambulation Description: Pt will ambulate 150 feet with out an assistive device with supervision to improve ability to navigate home environment. Outcome: Progressing Toward Goal Goal: Stairs Description: Pt will ascend/descend 2 stairs with 1 railings with supervision with out an assistive device to improve ability to perform functional mobility necessary in recommended discharge environment. Outcome: Progressing Toward Goal Problem: PT - Transfers Goal: Supine <-> Sit Description: Pt will perform bed mobility with flat bed & no rail with modified independence in order to improve functional mobility and safety. Outcome: Progressing Toward Goal Goal: Sit <-> Stand Description: Pt will perform sit to/from stand transfers with supervision with least restrictive device in order to improve functional mobility and safety. Outcome: Progressing Toward Goal PT treatment consisted of Therapeutic Activity, Therapeutic Procedure, Gait/Stair Training and Neuro Muscle Re-Education to work and progress towards above goal(s). Treating Therapist: Brianda Torres PT Additional Details: Co-evaluation/co-treatment performed?: No simultaneous skilled care performed I used facemask, protective eye shield, and gloves in today's patient interaction. Patient location at end of session: chair Alarms on at end of session: chair alarm Needs in reach. Time In: 1057 Time Out: 1122 Total Visit Time: 25 minutes Total Treatment Time (skilled, billable minutes): 25 minutes Upon discontinuation of Acute Care Physical Therapy Services or patient discharge from the hospital this note represents the current Physical Therapy Discharge Summary. Reason for Consult: Discharge Planning Consulted By: Med Team/CCM Level(s) of Care Discussed: IPR Patient's Preferred Geographic Area for Discharge: Close to Home/[place] Patient's preference for providers to include? 1.none provided Patient's preference for providers to exclude? 1.none provided Patient and/or Supervisor Sample Discussion Yes - with patient's Discussed referral process with the patient (and/or technical services representative). Patient is agreeable to have placement referral initiated. SW contacted patient's by phone to discuss discharge planning and recs for IPR. Patient's in agreement with sending IPR referrals but requested it being close to home. SW initiated IPR referrals. Aidin timer set to on Friday, 11/26, at 11am. SW will continue to follow. SIA Valverde LISW Medical Social Work Please note that I am a float SW and may not be covering the same unit each day. Please reach out to the floor/unit SW for additional needs/concerns. Contact info for weekend CM and SW staff (8:00am - 4:30pm): Brain and Spine: [facility]: [phone] / Head Neck Surgeon: [phone] Casey: CCM: [phone] / Head Neck Surgeon: [phone] Nadir: CCM : [phone] / Head Neck Surgeon: [phone] Kevin/MICU/PCU [place]: [facility]: [phone] / Head Neck Surgeon: [phone] Acute Occupational Therapy Treatment Prior to Admission AM-PAC Score: PRIOR LEVEL AM-PAC Activity Raw Score: 24 PRIOR LEVEL AM-PAC Mobility Raw Score: 24 Current AM-PAC score(s): CURRENT AM-PAC Activity Raw Score: 15 Based on the above AM-PAC score(s), and OT clinical judgment, discharge destination recommendation is: Inpatient Rehab Facility Supporting Factors (would benefit from skilled therapy services): Patient status is anticipated to be appropriate to tolerate inpatient rehab therapy requirements at time of discharge from acute care, Impaired functional status, Decreased strength, Impaired balance, Decreased endurance, Impaired self-care abilities, Impaired cognitive status, Assistance needed with functional mobility, Fall risk, Recent decline in functional mobility, Recent decline in self-care abilities, Recent decline in cognitive function, Patient has appropriate assistance and setup at home for ultimate discharge to home once patient has progressed functionally following inpatient rehab Mobility equipment available at home: straight cane, 4 wheeled walker, 2 wheeled walker ADL equipment available at home: shower chair, grab bars Equipment recommendations for discharge: to be determined Current therapy frequency recommendation(s) in acute: 5 times a week Precautions and Weightbearing Status: OT Existing Precautions/Restrictions: fall Telemetry Patient Safety Communication Prior to Visit: Nursing Subjective: Pt agreeable to OT session, flat affect and limited verbalizations Pain: General Pain Documentation (Adult, OB, Peds) Presence of Pain: denies pain/discomfort Objective/Observation: Vitals/Vitals Responses to Treatment: VSS Respiratory Status O2 Device: nasal cannula Flow (L/min): 2 Cognition Overall Cognitive Status: Impaired Arousal/Alertness: Delayed responses to stimuli Orientation Level: Oriented to person, Oriented to place, Oriented to time (initially states I don't know for time but oriented to Pancho, end of month) Following Commands: Follows one step commands with increased time, Follows one step commands with repetition Safety Judgment: Decreased awareness of need for assistance, Decreased awareness of need for safety Awareness of Errors: Assistance required to identify errors made, Assistance required to correct errors made Deficits: Decreased awareness of deficits Attention Span: Attends with cues to redirect Memory: Decreased short term memory Problem Solving: Assistance required to identify errors made, Assistance required to generate solutions Cognition Comments: Pt with poor initiation, flat affect. Repeated initiation cues required ADL Assessment/Intervention: ADLs: Grooming Assistance: Minimal Grooming Location: standing at sink Grooming Deficit: Activity tolerance, Generalized weakness, Balance, Oral care, Brushing hair Grooming Skilled Rationale (Verbal/Tactile/Visual/Demonstrati on): Setup, Supervision Grooming Intervention/Details: Pt required initiation and problem solving cues for task. Pt picked up toothbrush but required time to find paste and sequence to put on brush. Pt then brushed teeth with increased time and min cues. Pt attempted to dip toothbrush into empty cup and required cues to get water from sink UE Dressing Assistance: Moderate UE Dressing Location: edge of bed UE Dressing Deficit: Activity tolerance, Generalized weakness, Thread RUE, Thread LUE UE Dressing Skilled Rationale (Verbal/Tactile/Visual/Demonstrati on): Setup, Supervision LE Dressing Assistance: Maximal LE Dressing Location: edge of bed LE Dressing Deficit: Activity tolerance, Generalized weakness, Balance, Don/doff R sock, Don/doff L sock LE Dressing Skilled Rationale (Verbal/Tactile/Visual/Demonstrati on): Setup, Supervision LE Dressing Intervention/Details: Pt required max A to doff soiled socks and don clean socks. Encouraged pt to trial on his own but unable to maintain leg up towards him to doff Toilet Assistance: Maximal Toileting Location: (standing at sink) Toileting Deficit: Activity tolerance, Generalized weakness, Balance, Bladder incontinence Toilet Skilled Rationale (Verbal/Tactile/Visual/Demonstrati on): Setup, Supervision Toileting Intervention/Details: In standing at sink grooming, noted to have bladder incontinence. When asked if he had urinated, pt states I don't think so and without awareness. Pt required max A to clean up Balance: Sitting Balance Static Sitting-Level of Assistance: Standby Dynamic Sitting-Level of Assistance: Contact guard Standing Balance Static Standing-Level of Assistance: Contact guard Dynamic Standing-Level of Assistance: (min to mod A) Standing-Balance Support: Gait belt Skilled Rationale: Verbal cues Standing Balance Skilled Intervention/Details: Pt stood at sink for grooming tasks x5-6 min with CGA for balance. Pt without any major LOB in standing with intermittent 1 hand support on counter Mobility Assessment/Intervention: Supine to Sit Mobility [place] Level: Supine->Sit: minimum assist (75% patient effort) Bed Features/Set-up: Supine->Sit: Head of bed elevated, Use of bed rail Skilled Rationale: Verbal cues, Tactile cues, Positioning, Initiation and execution of task Skilled Intervention/Details: Supine->Sit: Repeated initiation cues to sit up. Pt able to verballly repeat back that he was to sit up but then without initiation to complete. Min A to pull to sit Transfer Assessment/Intervention: Sit to Stand Transfer [place] Level: Sit->Stand: minimum assist (75% patient effort) Assistive Device: Sit->Stand: gait belt Skilled Rationale: Verbal cues, Hand placement, Tactile cues, Initiation and execution of task Skilled Intervention/Details: Sit->Stand: x2 from EOB. Repeated initiation cues as pt able to repeat back what he was to do but then without initiation to complete. With min A and cues able to come to standing Stand to Sit Transfer [place] Level: Stand->Sit: minimum assist (75% patient effort) Assistive Device: Stand->Sit: gait belt, armed chair Skilled Rationale: Verbal cues, Hand placement, Controlled descent for sitting Skilled Intervention/Details: Stand->Sit: cues for proximity to bed/chair and to reach back, decreased eccentric control Bed-Chair Transfer [place] Level: Bed<->Chair: minimum assist (75% patient effort) Assistive Device: Bed<->Chair: gait belt, hand held assist Skilled Rationale: Verbal cues, Hand placement Skilled Intervention/Details: Bed<->Chair: cues for initiation and technique, decreased balance and steadiness Functional Mobility: Functional Mobility [place] Level: Functional Mobility/Gait: minimum assist (75% patient effort) Assistive Device: Functional Mobility/Gait: gait belt Functional Mobility Distance: Distance needed to access BSC/chair Functional Mobility Deficits: Balance, Activity tolerance Functional Mobility Skilled Rationale: Verbal cues, Facilitate positioning Skilled Intervention/Details - Functional Mobility/Gait: Pt ambulated short distance to and from sink from EOB. Pt required initiation cues and cues not to reach out for moving IV pole. Pt with unsteadiness and minor LOB during short distance mobility task. Outcome Score(s): CURRENT AM-[facility] Daily Activity Inpatient Short Form Putting on/Taking Off Lower Body Clothin - A Lot of Assistance Bathin - A Lot of Assistance Toiletin - A Lot of Assistance Putting on/Taking Off Upper Body Clothin - A Little Assistance Groomin - A Little Assistance Eatin - A Little Assistance CURRENT AM-PAC Activity Raw Score: 15 CURRENT AM-[facility] Activity Functional Limitation/Modifier: 56.46% Currently Impaired in Daily Activity - CK Assessment & Plan: Pt continues to present with impairments in cognition, balance, communication, safety and insight and requires assist for all ADL/IADLs and transfers. Juli Shook would benefit from continued OT services and should tolerate 3 hours of combined therapy per day. Patient Instruction/Education this session: Patient Instruction: progression of treatment, cues for balance and posture, initiation cues Plan for next session: Increased standing balance and tolerance for ADLs, visual scanning and problem solving Acute OT Goals Plan of Care by Cynthia Kaba OT at 11/25/2022 9:40 AM Version 1 of 1 Problem: OT - Dressing Goal: Lower Body Dressing Description: Pt will complete LE dressing tasks with modified independence for improved ability to complete self-care activities. Outcome: Ongoing Problem: OT - ADLs Goal: Grooming Description: Pt will complete grooming in standing with modified independence for improved ability to safely complete ADLs. Outcome: Progressing Toward Goal Problem: OT - Visual Scanning Goal: Visual Scanning ADL Description: Pt will employ use of visual compensatory strategies with less than 25% cues to increase participation and safety in ADLs. Outcome: Progressing Toward Goal Problem: OT - Cognition Goal: Cognition simple ADL Description: Pt will demonstrate improved cognition, completing simple ADL task for 10 minutes with less than 25% cues required to maintain attention, sequencing and problem solving for improved safety and success at discharge destination. Outcome: Progressing Toward Goal OT treatment consisted of ADL retraining, balance training, bed mobility training, cognitive training and transfer training to work and progress towards above goal(s). Treating Therapist: Cynthia Kaba OT Additional Details: Co-evaluation/co-treatment performed?: No simultaneous skilled care performed I used gloves and facemask in today's patient interaction. Patient location at end of session: chair Alarms on at end of session: chair alarm and RN aware Needs in reach. Time In: 905 Time Out: 938 Total Visit Time: 33 minutes Total Treatment Time (skilled, billable minutes): 33 minutes Upon discontinuation of Acute Care Occupational Therapy Services or patient discharge from the hospital this note represents the current Occupational Therapy Discharge Summary. Neurovascular Stroke Service Intracerebral Hemorrhage Note IDENTIFYING INFORMATION Juli Shook MR# [id number] 11/25/2022 HISTORY OF PRESENT ILLNESS Juli Shook is a 77 y.o. 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 On 11/19 pt complained of severe headache and wanted to throw up. Patient was taken to [facility]. CTH showed 3cm Rt Occipital hemorrhage with extension into the Rt lateral ventricle and old L frontal/cerebellar hemispheric strokes. WBC 15.6, INR 2.9. Vitamin K given. Patient given 2 doses of Labetalol for BP in [id number]'s. On arrival to [facility], SBP in 180's. Glucose 111. NIHSS 0. INR 1.8 here, given Kcentra. HCT showed stable Rt Occipital hemorrhage with extension into the Rt lateral ventricle. 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 Right thyroid lobe heterogeneous lesion. He was started on Nicardipine & admitted to [facility]U. INTERVAL HISTORY 11/20: repeat CTH pending, MRI brain P 11/21: Tx to Med surg, lisinopril increased, imaging reviewed 11/22: confusion overnight, lisinopril increased, cardene gtt resumed due to SBP > 200, repeat CTH pending, family updated via phone 11/23: Tmax overnight 102, CXR and UA unremarkable, blood cultures, Covid/flu swabs pending. Empiric antibiotics initiated 11/24: Afebrile overnight. Blood cultures NGTD. BP elevated overnight, increased hydralazine to 50 mg TID. Coughing with oral intake, made NPO, speech to re-evaluate 11/25: Pt coughing up thick elkins secretions, O2 stable on 2L NC. Repeat CXR pending. Vanc stopped. Procal, VBG w/ lactate obtained. Lower respiratory culture pending. Hydralazine increased. PHYSICAL EXAM Gen: awake, alert, NAD HEENT: normocephalic, no scalp lesions or tenderness, PERRLA, EOMI Neck: trachea midline, no JVD CV: +S1S2, RRR, no m/r/g Lungs: LCTA bilaterally with equal chest rise Abd: soft, nontender, nondistended, +BS x4 quadrants Extrem: Warm and well perfused, no cyanosis, clubbing, edema, 2+ pulses bilaterally Neuro: Oriented x4, ROWLEY x4, sensation intact and equal bilaterally. Dysarthria CN II - All visual young intact CN II/III - PERRLA CN III/IV/ - EOMI CN V - Face symmetric CN VII - Facial movement intact and symmetrical bilaterally CN VIII - Hearing intact CN X - Cough present CN XI - muscular movement of shoulders and sternocleidomastoid muscles intact and equal bilaterally CN XII - midline protrusion of tongue MOTOR EXAMINATION: BLE weakness, able to antigravity with drift NIHSS Provider NIH Stroke Scale NIH Interval (Provider): daily NIH Level of Conciousness (Provider): 0 NIH LOC Questions (Provider): 0 NIH LOC Commands (Provider): 0 NIH Best Gaze (Provider): 0 NIH Visual (Provider): 0 NIH Facial Palsy (Provider): 0 NIH Left Arm Motor (Provider): 0 NIH Right Arm Motor (Provider): 0 NIH Left Leg Motor (Provider): 2 NIH Right Leg Motor (Provider): 2 NIH Limb Ataxia (Provider): 0 NIH Sensory (Provider): 0 NIH Best Language (Provider): 0 NIH Dysarthria (Provider): 1 NIH Extinction and Inattention (Provider): 0 NIH Total Score (Provider): 5 Intracerebral Hemorrhage Volume Intracerebral Hemorrhage Score Score 30 Day Mortality following ICH 0 0% Mortality 1 13% Mortality 2 26% Mortality 3 72% Mortality 4 97% Mortality 5 100% Mortality ASSESSMENT AND PLAN Neuro: Coumadin related Acute right occipital Intracerebral hemorrhage CTH:Stable Rt occipital hemorrhage with extension into the Rt lateral ventricle. Thin SDH, trace SAH. 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 Right thyroid lobe heterogeneous lesion MRI brain: Rt IPH w/ IVH. Scattered SAH, may be d/t chronic hemosiderin standing. Area of encephalomalacia in left frontal lobe. 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 MRA brain: No AVM or dAVF Repeat CTH 11/22 Stable ECHO TTE EF 65-70%, no significant valvular disease LDL 48, A1c 5.6 -Aspirin 81 mg, discontinue when anticoagulation is initiated. -Eliquis (2.5 mg BID) start hemorrhage day 10 on 11/30 (AC is for Factor V Leiden, hx of multiple PE/DVT) -Follow up MRI imaging in 8-12 wks to assess for underlying lesion. -Follow up with heme in 1 month Hemorrhagic Stroke Core Measures -NHISS on admission 0 -Patient has been started on Mechanical (SCD's) and Pharmacological (SQ heparin) DVT prophylaxis will be started after stable HCT. -Antiplatelet therapy is not indicated. -Anticoagulation therapy not indicated in hemorrhagic stroke -Patients LDL 48 and HgbA1c 5.6 were checked and the patient will be discharged on a lipid lowering Statin medication if LDL is greater than 100. -Dysphagia screening ordered, and will be completed prior to patient receiving oral intake. -Stroke education booklet has been provided both written and verbal education to the patient and family regarding hemorrhagic strokes. We have reviewed the patient's personal modifiable risk factors including: HTN as well as education on reducing these risk factors. -Patient is being assessed for Rehab by PT/OT/Speech and PM&R if indicated. Suspected PNA:Tmax overnight 11/23 102, CXR and UA unremarkable. -blood cultures NGTD -Covid/flu swabs negative -cefepime and vancomycin initiated on 11/23, vancomycin discontinued 11/25 -MRSA screen pending, vancomycin discontinued 11/25 -Patient with elkins, thick productive sputum on 11/25 -Lower respiratory culture pending -Procal WNL 0.24 -Repeat CXR 11/25 with patchy atelectasis in the LLL -VBG w/ lactate stable Dysphagia: resolved -initially passed bedside swallow on admission, began coughing with oral intake on 11/24, made NPO with plans for speech to re-eval -cleared for regular diet with thin liquids 11/25 Dementia (POA): -Continue home Buspar -Discussed delirium with patient's son 11/22. Son reports has had cognitive decline and has issues with short term memory. -Delirium likely secondary to acute illness, hospitalization in addition to baseline dementia. Delirium precautions. Melatonin at bedtime. Seroquel at bedtime PRN. Tobacco Abuse (POA): -Duoneb q 6 hours -Chest xray no acute process -Uses 3 pipes per day, has been trying to cut back, not ready to quit -Smoking cessation encouraged -Nicotine patch ordered Essential HTN (POA): -Goal SBP < 140, titrate oral medications to achieve goal -PRN labetalol and hydralazine for SBP > 160 -hydralazine increased to 75 mg TID on 11/25 -continue amlodipine 10 mg and lisinopril 40 mg daily Hypercoagulable state 2/2 Factor V deficiency (POA): Multiple DVT x2/PE s/p IVC filter (POA): -Goal plt >100, INR <1.4, Hgb >7 -Heme consulted while in ICU, recommend: -apixiban 2.5 mg po BID when able, ASA 81 mg initiated on 11/24, discontinue on day 10 post hemorrhage and start Apixiban on 11/30 -Follow up with [facility] ([phone]), appointment in 1 month. Right thyroid lobe heterogeneous lesion -Incidental seen on CTA brain/neck -OP follow up with PCP for non-emergent thyroid ultrasound Juli Shook will likely be discharged to [facility] Ramez Irwin APRN-[employer] 11/25/2022 2:17 PM VITAL SIGNS Temp: [97.7 F (36.5 C)-99 F (37.2 C)] 97.9 F (36.6 C) Pulse (Heart Rate): [64-93] 75 Resp Rate: [19-33] 22 BP: (111-169)/(58-74) 111/58 O2 Sat (%): [91 %-96 %] 92 % IMAGING/DIAGNOSTIC STUDIES XR CHEST PORTABLE XR CHEST PORTABLE Final Result IMPRESSION: No acute cardiopulmonary disease CHEST PORTABLE Final Result IMPRESSION: Stable chest. HEAD WITHOUT CONTRAST Final Result IMPRESSION: No interval change when compared to CT head November 20, 2022. CARDIOGRAM Final Result MRI ARTERIOGRAM BRAIN WITHOUT CONTRAST Final Result IMPRESSION: No evidence of AVM or dural aVF. No significant intracranial arterial stenosis or occlusion. BRAIN WITH AND WITHOUT CONTRAST Final Result IMPRESSION: Right occipital parenchymal hemorrhage is again noted with intraventricular extension. T1 hyperintensity associated with the hematoma and in the dependent right cerebral hemisphere. No definite underlying parenchymal enhancement. Consider follow-up imaging in 8-12 weeks to better assess for underlying lesion. Scattered susceptibility artifact in multiple sulci and cerebellar folia, bilateral scattered subarachnoid hemorrhage. While this may all represent acute subarachnoid hemorrhage, cannot exclude a degree of underlying chronic hemosiderin staining. Small foci of mild diffusion restriction in the right frontal and parietal lobes, and most prominently in the left temporal lobe. These may be artifactual due to adjacent subarachnoid hemorrhage, although could represent small subacute infarcts. Prominent area of encephalomalacia in the left frontal lobe with apparent chronic hemosiderin staining. Small amount of enhancement centrally, likely representing an area of scarring. 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 CHEST PORTABLE Final Result IMPRESSION: No acute cardiopulmonary disease HEAD WITHOUT CONTRAST Final Result IMPRESSION: 1. Stable appearance of the right occipital parenchymal hematoma. 2. Stable degree of ventricular extension of blood products without progressing hydrocephalus. 3. Stable small volume of subdural blood products and subarachnoid hemorrhage. ANGIO BRAIN/NECK Final Result IMPRESSION: 1. No spot sign, large vessel arterial occlusion, dissection or aneurysm. 2. 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 Recommend further evaluation with MRA brain. 3. Right thyroid lobe heterogeneous lesion. Recommend correlation with prior imaging if available, or may consider nonemergent thyroid ultrasound. I personally viewed and interpreted these images and I have reviewed and approved this report. STROKE HEAD-STROKE ALERT ONLY Final Result IMPRESSION: 1. Right occipital intraparenchymal hemorrhage with intraventricular extension. Thin subdural hemorrhage and trace subarachnoid hemorrhage. 2. 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 A Critical finding has been discussed with Chris Contreras MD with a read back to Imelda Milton MD on 11/20/2022 5:22 AM . I personally viewed and interpreted these images and I have reviewed and approved this report. BRAIN WITH AND WITHOUT CONTRAST (Results Pending) MEDICATIONS amLODIPine 10 mg Oral Daily aspirin 81 mg Oral Daily Atorvastatin 40 mg Oral Daily busPIRone 5 mg Oral Daily ceFEPIme (MAXIPIME) IVPB 2 g Intravenous Q12HNS enoxaparin 40 mg Subcutaneous Daily hydrALAZINE 75 mg Oral Q8H Lisinopril 40 mg Oral Daily Melatonin 3 mg Oral Daily early evening nicotine 1 patch Transdermal Q24H And VERIFY LINKED PATCH PLACEMENT Other Q12H Senna 8.6 mg Oral Daily Associated attestation - Pancho Franks MD - 11/25/2022 5:41 PM EST I have independently seen and examined the patient on 11/25/22. I agree with the history, examination, assessment and plan as documented by the HOME PARAPROFESSIONAL with my changes/additions added. HPI: Patient is a 77 yo M with a hx of CAD, HTN, factor V Leiden on warfarin, DVT s/p IVC filter, prior hx of L frontal ICH who presented with severe headache and nausea. Found to have R occipital ICH with IVH. S/p K centra and Vitamin K for reversal. MRA was negative for dAVF. NSGY consulted no acute surgical intervention Interval History: Coughing up thick secretions, on 2L NC, some SOB objectively however patient denied feeling out of breath Scheduled Meds: amLODIPine 10 mg Oral Daily aspirin 81 mg Oral Daily Atorvastatin 40 mg Oral Daily busPIRone 5 mg Oral Daily ceFEPIme (MAXIPIME) IVPB 2 g Intravenous Q12HNS enoxaparin 40 mg Subcutaneous Daily hydrALAZINE 75 mg Oral Q8H Lisinopril 40 mg Oral Daily Melatonin 3 mg Oral Daily early evening nicotine 1 patch Transdermal Q24H And VERIFY LINKED PATCH PLACEMENT Other Q12H Senna 8.6 mg Oral Daily Labs: Lipid panel: Lab Results Component Value Date CHOLESTEROL 114 11/20/2022 TRIG 63 11/20/2022 HDL 53 11/20/2022 LDLCALC 48 11/20/2022 CHOLTOTALHDL 2.2 11/20/2022 NHCHOL 61 11/20/2022 Chem 7: Lab Results Component Value Date SODIUM 137 11/23/2022 POTASSIUM 3.4 (L) 11/23/2022 CHLORIDE 106 11/23/2022 CO2 21 11/23/2022 GLUCOSE 126 (H) 11/23/2022 BUN 29 (H) 11/23/2022 CREATSERUM 0.83 11/25/2022 BUNCREARATIO 31 11/23/2022 OSMOLALITY 294 11/23/2022 GFR 89 11/25/2022 CBC: Lab Results Component Value Date WBC 15.18 (H) 11/25/2022 HGB 14.0 11/25/2022 HCT 42.8 11/25/2022 PLATELET 251 11/25/2022 PLATELET 251 11/25/2022 MCV 89.5 11/25/2022 DIFF: Lab Results Component Value Date RBCDISTRIBU 14.2 11/25/2022 GRNLOCYT 76.6 11/20/2022 LYMPHOCYT 13.2 11/20/2022 MONOCYTELEC 9.6 11/20/2022 EOSINOPHILS 0.1 11/20/2022 BASOPHILS 0.2 11/20/2022 LYMPHOCYTABS 1.84 11/20/2022 EOSINOPHLABS <0.04 11/20/2022 PLATELET 251 11/25/2022 PLATELET 251 11/25/2022 MPV 10.6 11/25/2022 MPV 10.6 11/25/2022 Physical Exam: Vitals: 11/25/22 1455 BP: 124/58 Pulse: Resp: Temp: GENERAL: no acute distress HEENT: normocephalic, atraumatic CARDIO: +S1S2, RRR, no edema PULM: Reduced breathing sounds at left lower base ABDOMINAL: soft, nontender, nondistended, active bowel sounds EXTREMITIES: no wounds nor lesions SKIN: no rash or obvious skin abnormalities VASCULAR: + distal pulses, capillary refill <3 seconds NEURO: Awake and alert, follows commands, pupils reactive to light, asymmetric face, dysarthria, left sided drift (LLE >RLE) Assessment and Plan: Neuro: Acute right occipital ICH in the setting of coagulopathy S/p Kcentra and Vit K for warfarin reversal - At very high risk for stroke, new DVT/PE given his hx of hypercoagulability. Plan to start Eliquis instead of Warfarin on hemorrhage day 10. Dc ASA at that time - SBP <160, MAP >65. PRN Hydralazine and Labetalol - Neurochecks and NIHSS - Eunatremia eucarbia, euthermia and euvolemia - PT/OT/ELEMENTARY PRINCIPAL eval. Passed swallow eval Other medical problems: HTN: Lisinopril and Norvasc LLL Pneumonia: Having cough with thick secretions. CXR today, continue Cefepime. Dc Vanc. Get MRSA swab, Procal and lactate/ABG. Schedule duonebs Tobacco use: Nicotine patch, counseling on smoking cessation DVT/PE S/p IVC filer. Plan for anticoagulation as above VTE prophylaxis: - SCDs - Chemical prophylaxis with subcutaneous Lovenox Acute deconditioning - PT/OT consulted and following - Mobility as tolerated Additional details and other supportive care as per the HOME PARAPROFESSIONAL note below. Pancho Franks MD Neurovascular Attending Stroke Attending Addendum (Date of service 11/24/22): I have interviewed and examined patient. I have reviewed Jacque Wheeler CNP's note and agree with the following highlights, additions, and addendums: The patient is a 77 y.o. 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 He presented to [facility] where CT brain showed a 3m right occipital intracerebral hemorrhage with intraventricular hemorrhage. INR 2.9. He was given Vitamin K. He was transferred to [facility] ER and on arrival NIHSS was 0. INR 1.8 and he was given Kcentra. CT angiogram head/neck shows increased vascularity adjacent to tentorium, possible dAVF. NSG consulted. The pateint was started on cardene gtt and admitted to the [facility]. LDL 48, HgbA1c 5.6. MRI brain- chronic CVT L SS and TS, MRA neg. TTE EF 65%. 11/22 CXR neg, 11/22 CT brain stable. 11/22 evening Fever - Vanc/cefepime added. Resumed Asa 11/24/22. Interval Overnight History: 155/75. On 2L NC. Neurological examination shows confusion and dysarthria, NIHSS-1 (dys-1). Assessment/Plan: Coumadin related Acute right occipital Intracerebral hemorrhage Post-bleed day # 5. Coumadin reversed. Stroke work-up completed. Continue Blood pressure control. On lisinopril and norvasc. DVT prophylaxis with SCDs and lovenox SQ. Nicotine patch. PT/OT consult-ARF. Seroquel at bedtime prn. Resume Asa today. Start eliquis (per heme), will start PBD #10 (and stop Asa at that time). Fever, on Vanc/cefepime, Cx pending, repeat CXR. Increase hydralazine, goal SBP < 160 for prn. Filiberto Perez MD Acute Care ELEMENTARY PRINCIPAL Speech/Language/Cognitive and Swallow Evaluations Diet recommendation: Recommended Method of Nutrition: PO Recommended Diet Grade: regular Recommended Liquid Consistency: liquid- thin (IDDSI 0) Recommended Medication Administration (as appropriate per MD): Per patient preference (if difficulties with thin liquids consider taking 1 PO medication at a time, whole vs crushed in puree) Type of Cues/Supervision: intermittent supervision (ensure awake/alert and upright positioning for all PO intake) Assistance: family, nurse/aide Other Recommendations: Oral care 3x/day as this has been proven to reduce the risk of pneumonia, especially in NPO patients. Best mode of Communication: spoken language (regular speech) Communication Strategies: - Ensure hearing aid battery charged and R CANALES in place - Continue evidence-based nonpharmacologic interventions for prevention and treatment of delirium: - redirect/reorient/reassure frequently - avoid restraints and instead utilize sitter as needed for safety - early mobilization as medically appropriate, OOB for meals as able - use familiar objects (family photos and items from home) - sleep hygiene, limit nighttime care to promote sleep/wake cycle Ensure dentures and hearing aids removed at night prior to sleep, replaced in the morning - hydrate and encourage PO intake when medically appropriate - minimize/camouflage lines and tethers as able - minimize narcotics as long as pain is adequately controlled - avoid benzos and anticholinergic medications Discharge Recommendations: Based on the below outcome measures/assessment score(s) and ELEMENTARY PRINCIPAL clinical judgment, discharge destination recommendation is: Deferred to PT/OT recomendations related to mobility No ongoing ELEMENTARY PRINCIPAL services for dysphagia Given son concern for validity of pt's dementia diagnosis should pt discharge to IPR setting, recommend trialing cog-communication therapy to determine efficacy and generalization of strategies for ongoing skilled services vs need for external modulation of environment and change to 1:1 assist for safe completion of iADLs. Discussed above with son at bedside who is in agreement. Referrals: -As medically cleared/appropriate, consider eventual OP consult to Neuropsych vs ongoing memory clinic to establish dementia diagnosis -Per conversation with pt/son, consider nutrition/calorie counts and heating fixture tender consult to assist with maximizing calorie intake. (Noted concern for recent weight loss with reduced intake in home setting. Uncertain if decreased intake due to changes in appetite vs burden of making food for himself/). Barriers to discharge home: Cognitive impairments that impact safety and independence Supporting factors for discharge setting: Impaired cognitive skills limiting safety/insight, Impaired cognitive skills limiting functional problem solving in immediate environment, Impaired cognitive skills limiting independence Acute ELEMENTARY PRINCIPAL Outcomes Tracking Communicate basic wants and needs?: yes Demo insight/appreciation of deficits?: no Complete basic problem solving?: yes Current therapy frequency recommendation in acute: Speech/Lang/Cog Therapy Frequency: 2 times a week and pending completion of UTI medications Swallow Therapy Frequency: no therapy warranted Of note, re-evaluation warranted for speech/lang/cog and swallow POC. In setting of acute concern for swallow changes pt was made NPO pending ELEMENTARY PRINCIPAL reassessment. With new information regarding pt baseline as well as pt/son wishes, updated recommendations for trialing ELEMENTARY PRINCIPAL intervention when medically optimized in acute care setting. Support current PT/OT recommendations for benefit of IPR level rehabilitation at this time. Clinical Swallow Impression: Juli Shook presents with possible acute on chronic cognitive impairments in areas of sustained attention, immediate/short term recall, problem solving, sequencing, ?left inattention, and insight/awareness into impact of deficits on safety. Complex history with prior ICH (2019) with residual deficits as well as ?dementia diagnosis, now presenting with acute R occipital ICH and ongoing management of UTI. Son at bedside endorsing pt managing iADLs for himself and assisting with other ADLs for in home setting. Concern for safe and complete management of these tasks in home setting prior to admission. With extensive conversation with son, ongoing documentation with acute deficits documented by OT/PT impacting safety with vision and mobility, appropriate to consider ongoing skilled ELEMENTARY PRINCIPAL services for possible benefit of therapy addressing above deficits in acute care and next level of care. Continue to recommend ongoing workup for memory deficits when medically managed in OP setting. Clinical Speech/Language/Cognitive Impression: Juli Shook presents with suspected functional oropharyngeal phases of the swallow s/o complex medical course, prior ICH (2019) with residual deficits as well as ?dementia diagnosis, now presenting with acute R occipital ICH and ongoing management of UTI. This date when sitting upright and awake/alert no concerns for overt signs/symptoms concerning for penetration/aspiration. Suspect possible waxing/waning mentation will negatively impact acceptance and safety with intake. Recommend re initiation of regular solids, thin liquids, intermittently supervision to ensure awake/alert and appropriate for intake. Patient Instruction/Education this session: Extensive education on role of ELEMENTARY PRINCIPAL in POC and at various level of rehab Plan for next session: Address POC for ongoing assessment and education for family/POC Subjective: Pt seen at bedside. Son present for duration of session. Hearing aid battery changed with immediate improvement in pt participation in conversation. Extensive history collected from son at bedside regarding baseline function (see below). Son communicating concern for validity of dementia diagnosis throughout assessment. Supporting pt decision to continue driving and assisting managing home iADLs with recognition of changes from prior ICH. RN and medical team made aware of above. Pain: General Pain Documentation (Adult, OB, Peds) Presence of Pain: denies pain/discomfort DVPRS (Defense and Veterans Pain Rating Scale) DVPRS: Rest: 0- no pain DVPRS: Activity: 0- no pain Patient History Comments: Juli Shook is a 77 y.o. 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 Neuro: Coumadin related Acute right occipital Intracerebral hemorrhage CTH:Stable Rt occipital hemorrhage with extension into the Rt lateral ventricle. Thin SDH, trace SAH. 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 Right thyroid lobe heterogeneous lesion MRI brain: Rt IPH w/ IVH. Scattered SAH, may be d/t chronic hemosiderin standing. Area of encephalomalacia in left frontal lobe. 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 Dementia (POA): -Continue home Buspar -Discussed delirium with patient's son 11/22. Son reports has had cognitive decline and has issues with short term memory. -Delirium likely secondary to acute illness, hospitalization in addition to baseline dementia. Delirium precautions. Melatonin at bedtime. Seroquel at bedtime PRN. Also ongoing med management of UTI. Prior Level of Function: Residence: House Lives With: spouse IADL History IADLs: Pt lives at home with who requires assist with mobility. Per son at bedside pt manages most iADLs for couple Medication Management: Pt was independently managing. Concern from family (also recognized by patient) as during admission to hospital realized mediations were not being taken Finance Management: Pt pays bills with son consistently reviewing bank activity/statements Homemaking Responsibilities: Yes Meal Prep Responsibility: Pt cooks with questionable supervision level from Laundry Responsibility: Primary Cleaning Responsibility: Primary Active Resident Intern: Yes Despite consistent recommendations from Primary MD, see OP note from PCP from 08/21/22 1. Dementia without behavioral disturbance (HCC) - ICD9: 294.20, ICD10: F03.90 (primary diagnosis) Complaining of worsening memory. Discussed he should not be driving and will refer to social work to help with transportation information. Keep f/u with neurology as recommended. Red flags for re-assessment reviewed with patient in detail. Son at bedside stating follow up with Neurology completed however ELEMENTARY PRINCIPAL unable to gather additional information. Prior ELEMENTARY PRINCIPAL history: Seen for eval and signed off 10/2622. Current Method of Nutrition: Route of Nutrition: NPO (made NPO following RN concerns for cough response with medications and other PO intake) Diet Grade: (none) Liquid Consistency: (none) Respiratory Status: O2 Device: nasal cannula O2 Sat (%): 92 % Resp Rate: (!) 25 Clinical Swallow Evaluation Clinical Swallow Exam limited by cognition: No Objective Evaluation: Oral Motor: Cranial Nerve Exam CN V (Trigeminal) normal blink CN VII (Facial) strong bilateral movement of upper and lower face CN IX (Glossopharyngeal) not tested CN X (Vagus) not tested CN XI (Accessory) raises head off pillow without difficulty CN XII (Hypoglossal) clearly articulated speech Vocal Quality: mild, hoarse GRBAS: A perceptual rating scale for voice parameters Rating scale of 0 to 3 0 = no impairment 1 = minimal to mild impairment 2 = moderate impairment 3 = severe impairment Subjective Voice Evaluation Grade of dysphonia (G): 1 Roughness (R): 1 Breathiness (B): 1 Asthenia (A): 1 Strain (S): 0 Positioning: High Sultana's (60-90 degrees) Anticipatory Phase: Functional Foods and Liquids Trialed: Modality: Amount: Ice Teaspoon x2 Thin Straw x8 Dysphagia- pureed (IDDSI 4) Teaspoon x~2oz Regular solid Self-fed x1 cookie (PO medciations from RN) (with water) x2 Oral Phase Function Comments Oral Mucosa Functional Dentition Full dentures (appeared secure however son endorsed concern for ill fitting, pt declined use of polydent when offered) Labial Closure Functional Mastication Functional Oral Stasis Absent Cough before the swallow Absent Oral Phase Summary: Presents with minimally prolonged mastication and complete oral clearance. Pharyngeal Phase Function Comments Perceived Swallow Present Cough Response No Throat Clear No Subjective Complaint of Residue Absent Pharyngeal Phase Summary: Presents with suspected functional pharyngeal phase. Appreciated no overt coughs/throat clears following PO intake Strategies Trialed: [place] Swallow Screen: (administered by: RN prior to eval) [place] Swallow Screening Screening Exclusion Criteria: none, continue with [place] Swallow Screening Cognitive Screen: Orientation: able to give name, able to name place, able to name current year Cognitive Screen: Command Following: able to open mouth, able to stick out tongue, able to smile Oral Motor Function : able to close lips, able to move tongue to corners of lips, able to stick out tongue past lips, able to pucker lips and smile 3 oz. Water Swallow Challenge : no deficit-passed [place] Swallow Screening Result: passed=cleared for oral intake Voice and Swallow Outcomes: Functional Oral Intake Scale: Level 7 - Total oral intake with no restrictions Speech/Language/Cognitive Evaluation EXPRESSIVE LANGUAGE: Functional as evidenced by reciprocal participation in conversation without anomia. Pt demonstrated fluent communication of basic wants/needs. RECEPTIVE LANGUAGE: Functional as evidenced by reciprocal participation in conversation with appropriate responses, intact command following and accurate Y/N responses. READING: (Limited assessment this date, concern for left inattention/neglect. Glasses located and placed) WRITING: (Limited assessment, will continue to address with new knowledge of managing iADLs in home setting) SOCIAL INTERACTION/PRAGMATICS: Functional Task: Affect (somehwat flat vs tired) COGNITION: Impaired (with questionable baseline as well as ?new deficits vs toxic/metabolic negatively impacting) Task: Arousal/Alertness Delayed responses to stimuli (improved following replacement of hearing aid batteries) Orientation Level Oriented to person, Oriented to place Safety Judgment Decreased awareness of need for assistance, Decreased awareness of need for safety Awareness of Errors Decreased awareness of errors Deficits Decreased awareness of deficits Attention Span Attends with cues to redirect Memory Decreased short term memory (Concern for deficits in immediate memory) Problem Solving Assistance required to generate solutions, Assistance required to implement solutions MOTOR SPEECH TASKS: Functional VOCAL PARAMETERS: Functional Subjective Voice Evaluation Grade of dysphonia (G): 1 Roughness (R): 1 Breathiness (B): 1 Asthenia (A): 1 Strain (S): 0 ELEMENTARY PRINCIPAL Outcomes: The Orientation Log (O-Log) is designed to be a quick quantitative measure of orientational status for use at bedside with rehabilitation inpatients. Place, time, and situational (Etiology/Event + Pathology/Deficits) domains are assessed. Patient responses are scored according to the following criteria: 3 = correct spontaneously or upon first free recall attempt; 2 = correct upon logical cueing (e.g., That was yesterday, so today must be ); 1 = correct upon multiple choice or phonemic cuing; and 0 = incorrect despite cueing, inappropriate response, or unable to respond. Patient scored Total Score: this . Acute ELEMENTARY PRINCIPAL Goals Plan of Care by NOLBERTO Bean at 11/24/2022 12:09 PM Version 1 of 1 Problem: ELEMENTARY PRINCIPAL - Cognition Goal: Problem Solving Goal 1 Description: Patient will complete basic problem solving tasks in at least 90% of opportunities in their immediate environment to support self-advocacy and independence, given min cues across x1-2 consecutive sessions by discharge. Outcome: Ongoing Goal: Alertness Goal Description: With medical optimization, patient will independently maintain alertness for at least 5 minutes across 1 session to determine readiness to participate in further cognitive-linguistic assessment. Outcome: Ongoing Speech Language Pathologist: NOLBERTO Bean Time In: 1208 Time Out: 1302 Total Visit Time: 54 minutes Total Treatment Time (skilled, billable minutes): 50 minutes I used facemask, protective eye shield, and gloves in today's patient interaction. Patient location at end of session: bed with head of bed elevated Alarms on at end of session: ELEMENTARY PRINCIPAL did not touch/manage existing alarms this session. Needs in reach. Upon discontinuation of Acute Care Speech Therapy Services or patient discharge from the hospital this note represents the current Speech Therapy Discharge Summary Neurovascular Stroke Service Intracerebral Hemorrhage Note IDENTIFYING INFORMATION Juli Shook MR# [id number] 11/24/2022 HISTORY OF PRESENT ILLNESS Juli Shook is a 77 y.o. 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 On 11/19 pt complained of severe headache and wanted to throw up. Patient was taken to [facility]. CTH showed 3cm Rt Occipital hemorrhage with extension into the Rt lateral ventricle and old L frontal/cerebellar hemispheric strokes. WBC 15.6, INR 2.9. Vitamin K given. Patient given 2 doses of Labetalol for BP in [id number]'s. On arrival to [facility], SBP in 180's. Glucose 111. NIHSS 0. INR 1.8 here, given Kcentra. HCT showed stable Rt Occipital hemorrhage with extension into the Rt lateral ventricle. 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 Right thyroid lobe heterogeneous lesion. He was started on Nicardipine. INTERVAL HISTORY 11/20: repeat CTH pending, MRI brain P 11/21: Tx to Med surg, lisinopril increased, imaging reviewed 11/22: confusion overnight, lisinopril increased, cardene gtt resumed due to SBP > 200, repeat CTH pending, family updated via phone 11/23: Tmax overnight 102, CXR and UA unremarkable, blood cultures, Covid/flu swabs pending. Empiric antibiotics initiated 11/24: Afebrile overnight. Blood cultures NGTD. BP elevated overnight, increased hydralazine to 50 mg TID. Coughing with oral intake, made NPO, speech to re-evaluate PHYSICAL EXAM Gen: awake, alert, NAD HEENT: normocephalic, no scalp lesions or tenderness, PERRLA, EOMI Neck: trachea midline, no JVD CV: +S1S2, RRR, no m/r/g Lungs: LCTA bilaterally with equal chest rise Abd: soft, nontender, nondistended, +BS x4 quadrants Extrem: Warm and well perfused, no cyanosis, clubbing, edema, 2+ pulses bilaterally Neuro: Oriented x4, ROWLEY x4, sensation intact and equal bilaterally. CN II - All visual young intact CN II/III - PERRLA CN III/IV/ - EOMI CN V - Mild L facial droop CN VII - Facial movement intact and symmetrical bilaterally CN VIII - Hearing intact CN X - Cough present CN XI - muscular movement of shoulders and sternocleidomastoid muscles intact and equal bilaterally CN XII - midline protrusion of tongue MOTOR EXAMINATION: no drift noted NIHSS Provider NIH Stroke Scale NIH Interval (Provider): daily NIH Level of Conciousness (Provider): 0 NIH LOC Questions (Provider): 0 NIH LOC Commands (Provider): 0 NIH Best Gaze (Provider): 0 NIH Visual (Provider): 0 NIH Facial Palsy (Provider): 0 NIH Left Arm Motor (Provider): 0 NIH Right Arm Motor (Provider): 0 NIH Left Leg Motor (Provider): 2 NIH Right Leg Motor (Provider): 2 NIH Limb Ataxia (Provider): 0 NIH Sensory (Provider): 0 NIH Best Language (Provider): 0 NIH Dysarthria (Provider): 1 NIH Extinction and Inattention (Provider): 0 NIH Total Score (Provider): 5 Intracerebral Hemorrhage Volume Intracerebral Hemorrhage Score Score 30 Day Mortality following ICH 0 0% Mortality 1 13% Mortality 2 26% Mortality 3 72% Mortality 4 97% Mortality 5 100% Mortality ASSESSMENT AND PLAN Neuro: Coumadin related Acute right occipital Intracerebral hemorrhage CTH:Stable Rt occipital hemorrhage with extension into the Rt lateral ventricle. Thin SDH, trace SAH. 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 Right thyroid lobe heterogeneous lesion MRI brain: Rt IPH w/ IVH. Scattered SAH, may be d/t chronic hemosiderin standing. Area of encephalomalacia in left frontal lobe. 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 MRA brain: No AVM or dAVF Repeat CTH 11/22 Stable ECHO TTE EF 65-70%, no significant valvular disease LDL 48, A1c 5.6 -Aspirin 81 mg, discontinue when anticoagulation is initiated. -Eliquis (2.5 mg BID) start hemorrhage day 10 on 11/30 -Follow up MRI imaging in 8-12 wks to assess for underlying lesion. -Follow up with heme in 1 month Hemorrhagic Stroke Core Measures -NHISS on admission 0 -Patient has been started on Mechanical (SCD's) and Pharmacological (SQ heparin) DVT prophylaxis will be started after stable HCT. -Antiplatelet therapy is not indicated. -Anticoagulation therapy not indicated in hemorrhagic stroke -Patients LDL 48 and HgbA1c 5.6 were checked and the patient will be discharged on a lipid lowering Statin medication if LDL is greater than 100. -Dysphagia screening ordered, and will be completed prior to patient receiving oral intake. -Stroke education booklet has been provided both written and verbal education to the patient and family regarding hemorrhagic strokes. We have reviewed the patient's personal modifiable risk factors including: HTN as well as education on reducing these risk factors. -Patient is being assessed for Rehab by PT/OT/Speech and PM&R if indicated. Suspected PNA:Tmax overnight 11/23 102, CXR and UA unremarkable -blood cultures NGTD -Covid/flu swabs negative -cefepime and vancomycin initiated on 11/23 Dysphagia -initially passed bedside swallow on admission, began coughing with oral intake on 11/24, -diet changed to NPO with meds pending speech eval -speech therapy consulted, eval pending Dementia (POA): -Continue home Buspar -Discussed delirium with patient's son 11/22. Son reports has had cognitive decline and has issues with short term memory. -Delirium likely secondary to acute illness, hospitalization in addition to baseline dementia. Delirium precautions. Melatonin at bedtime. Seroquel at bedtime PRN. 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 Right thyroid lobe heterogeneous lesion -Incidental seen on CTA brain/neck -OP follow up with PCP for non-emergent thyroid ultrasound Juli Shook will likely be discharged to [facility]. Jacque Wheeler, MAIL DISTRIBUTION SCHEME EXAMINER-IRONWORKER [employer] 11/24/2022 6:49 AM VITAL SIGNS Temp: [97.4 F (36.3 C)-99 F (37.2 C)] 97.4 F (36.3 C) Pulse (Heart Rate): [67-111] 75 Resp Rate: [16-33] 23 BP: (112-191)/(55-95) 128/60 O2 Sat (%): [92 %-97 %] 92 % IMAGING/DIAGNOSTIC STUDIES XR CHEST PORTABLE Final Result IMPRESSION: Stable chest. HEAD WITHOUT CONTRAST Final Result IMPRESSION: No interval change when compared to CT head November 20, 2022. CARDIOGRAM Final Result MRI ARTERIOGRAM BRAIN WITHOUT CONTRAST Final Result IMPRESSION: No evidence of AVM or dural aVF. No significant intracranial arterial stenosis or occlusion. BRAIN WITH AND WITHOUT CONTRAST Final Result IMPRESSION: Right occipital parenchymal hemorrhage is again noted with intraventricular extension. T1 hyperintensity associated with the hematoma and in the dependent right cerebral hemisphere. No definite underlying parenchymal enhancement. Consider follow-up imaging in 8-12 weeks to better assess for underlying lesion. Scattered susceptibility artifact in multiple sulci and cerebellar folia, bilateral scattered subarachnoid hemorrhage. While this may all represent acute subarachnoid hemorrhage, cannot exclude a degree of underlying chronic hemosiderin staining. Small foci of mild diffusion restriction in the right frontal and parietal lobes, and most prominently in the left temporal lobe. These may be artifactual due to adjacent subarachnoid hemorrhage, although could represent small subacute infarcts. Prominent area of encephalomalacia in the left frontal lobe with apparent chronic hemosiderin staining. Small amount of enhancement centrally, likely representing an area of scarring. 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 CHEST PORTABLE Final Result IMPRESSION: No acute cardiopulmonary disease HEAD WITHOUT CONTRAST Final Result IMPRESSION: 1. Stable appearance of the right occipital parenchymal hematoma. 2. Stable degree of ventricular extension of blood products without progressing hydrocephalus. 3. Stable small volume of subdural blood products and subarachnoid hemorrhage. ANGIO BRAIN/NECK Final Result IMPRESSION: 1. No spot sign, large vessel arterial occlusion, dissection or aneurysm. 2. 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 Recommend further evaluation with MRA brain. 3. Right thyroid lobe heterogeneous lesion. Recommend correlation with prior imaging if available, or may consider nonemergent thyroid ultrasound. I personally viewed and interpreted these images and I have reviewed and approved this report. STROKE HEAD-STROKE ALERT ONLY Final Result IMPRESSION: 1. Right occipital intraparenchymal hemorrhage with intraventricular extension. Thin subdural hemorrhage and trace subarachnoid hemorrhage. 2. 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 A Critical finding has been discussed with Chris Contreras MD with a read back to Imelda Milton MD on 11/20/2022 5:22 AM . I personally viewed and interpreted these images and I have reviewed and approved this report. BRAIN WITH AND WITHOUT CONTRAST (Results Pending) MEDICATIONS amLODIPine 10 mg Oral Daily aspirin 81 mg Oral Daily Atorvastatin 40 mg Oral Daily busPIRone 5 mg Oral Daily ceFEPIme (MAXIPIME) IVPB 2 g Intravenous Q12HNS enoxaparin 40 mg Subcutaneous Daily hydrALAZINE 50 mg Oral Q8H Lisinopril 40 mg Oral Daily Melatonin 3 mg Oral Daily early evening nicotine 1 patch Transdermal Q24H And VERIFY LINKED PATCH PLACEMENT Other Q12H Senna 8.6 mg Oral Daily Vancomycin (VANCOCIN) IVPB 20 mg/kg (Adjusted) Intravenous Q24H Stroke Attending Addendum (Date of service 11/23/22): I have interviewed and examined patient. I have reviewed Jacque Wheeler CNP's note and agree with the following highlights, additions, and addendums: The patient is a 77 y.o. 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 He presented to [facility] where CT brain showed a 3m right occipital intracerebral hemorrhage with intraventricular hemorrhage. INR 2.9. He was given Vitamin K. He was transferred to [facility] ER and on arrival NIHSS was 0. INR 1.8 and he was given Kcentra. CT angiogram head/neck shows increased vascularity adjacent to tentorium, possible dAVF. NSG consulted. The pateint was started on cardene gtt and admitted to the [facility]. LDL 48, HgbA1c 5.6. MRI brain- chronic CVT L SS and TS, MRA neg. TTE EF 65%. 11/22 CXR neg, 11/22 CT brain stable. Interval Overnight History: 112/55. Tm 38.9. 92% on 2L. Fever, no CANALES. Vanc/cefepime added. Neurological examination shows confusion and dysarthria, NIHSS-1 (dys-1). Assessment/Plan: Coumadin related Acute right occipital Intracerebral hemorrhage Post-bleed day # 4. Coumadin reversed. Stroke work-up completed. Continue Blood pressure control. On lisinopril and norvasc. DVT prophylaxis with SCDs and lovenox SQ. Nicotine patch. PT/OT consult-ARF. Seroquel at bedtime prn. Resume Asa on tomorrow and eliquis PBD #10. Fever, on Vanc/cefepime, Cx pending. NPO, IVF. Filiberto Perez MD Neurovascular Stroke Service Intracerebral Hemorrhage Note IDENTIFYING INFORMATION Juli Shook MR# [id number] 11/23/2022 HISTORY OF PRESENT ILLNESS Juli Shook is a 77 y.o. 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 On 11/19 pt complained of severe headache and wanted to throw up. Patient was taken to [facility]. CTH showed 3cm Rt Occipital hemorrhage with extension into the Rt lateral ventricle and old L frontal/cerebellar hemispheric strokes. WBC 15.6, INR 2.9. Vitamin K given. Patient given 2 doses of Labetalol for BP in [id number]'s. On arrival to [facility], SBP in 180's. Glucose 111. NIHSS 0. INR 1.8 here, given Kcentra. HCT showed stable Rt Occipital hemorrhage with extension into the Rt lateral ventricle. 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 Right thyroid lobe heterogeneous lesion. He was started on Nicardipine. INTERVAL HISTORY 11/20: repeat CTH pending, MRI brain P 11/21: Tx to Med surg, lisinopril increased, imaging reviewed 11/22: confusion overnight, lisinopril increased, cardene gtt resumed due to SBP > 200, repeat CTH pending, family updated via phone 11/23: Tmax overnight 102, CXR and UA unremarkable, blood cultures, Covid/flu swabs pending. Empiric antibiotics initiated PHYSICAL EXAM Gen: awake, alert, NAD HEENT: normocephalic, no scalp lesions or tenderness, PERRLA, EOMI Neck: trachea midline, no JVD CV: +S1S2, RRR, no m/r/g Lungs: LCTA bilaterally with equal chest rise Abd: soft, nontender, nondistended, +BS x4 quadrants Extrem: Warm and well perfused, no cyanosis, clubbing, edema, 2+ pulses bilaterally Neuro: Oriented x4, ROWLEY x4, sensation intact and equal bilaterally. CN II - All visual young intact CN II/III - PERRLA CN III/IV/ - EOMI CN V - Mild L facial droop CN VII - Facial movement intact and symmetrical bilaterally CN VIII - Hearing intact CN X - Cough present CN XI - muscular movement of shoulders and sternocleidomastoid muscles intact and equal bilaterally CN XII - midline protrusion of tongue MOTOR EXAMINATION: no drift noted NIHSS Provider NIH Stroke Scale NIH Interval (Provider): daily NIH Level of Conciousness (Provider): 0 NIH LOC Questions (Provider): 0 NIH LOC Commands (Provider): 0 NIH Best Gaze (Provider): 0 NIH Visual (Provider): 0 NIH Facial Palsy (Provider): 1 NIH Left Arm Motor (Provider): 0 NIH Right Arm Motor (Provider): 0 NIH Left Leg Motor (Provider): 0 NIH Right Leg Motor (Provider): 0 NIH Limb Ataxia (Provider): 0 NIH Sensory (Provider): 0 NIH Best Language (Provider): 0 NIH Dysarthria (Provider): 0 NIH Extinction and Inattention (Provider): 0 NIH Total Score (Provider): 1 Intracerebral Hemorrhage Volume Intracerebral Hemorrhage Score Score 30 Day Mortality following ICH 0 0% Mortality 1 13% Mortality 2 26% Mortality 3 72% Mortality 4 97% Mortality 5 100% Mortality ASSESSMENT AND PLAN Neuro: Coumadin related Acute right occipital Intracerebral hemorrhage CTH:Stable Rt occipital hemorrhage with extension into the Rt lateral ventricle. Thin SDH, trace SAH. 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 Right thyroid lobe heterogeneous lesion MRI brain: Rt IPH w/ IVH. Scattered SAH, may be d/t chronic hemosiderin standing. Area of encephalomalacia in left frontal lobe. 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 MRA brain: No AVM or dAVF Repeat CTH 11/22 Stable ECHO TTE EF 65-70%, no significant valvular disease LDL 48, A1c 5.6 -Aspirin start hemorrhage day 3 on 11/23 -Eliquis (2.5 mg BID) start hemorrhage day 10 on 11/30 -Follow up MRI imaging in 8-12 wks to assess for underlying lesion. -Follow up with heme in 1 month Hemorrhagic Stroke Core Measures -NHISS on admission 0 -Patient has been started on Mechanical (SCD's) and Pharmacological (SQ heparin) DVT prophylaxis will be started after stable HCT. -Antiplatelet therapy is not indicated. -Anticoagulation therapy not indicated in hemorrhagic stroke -Patients LDL 48 and HgbA1c 5.6 were checked and the patient will be discharged on a lipid lowering Statin medication if LDL is greater than 100. -Dysphagia screening ordered, and will be completed prior to patient receiving oral intake. -Stroke education booklet has been provided both written and verbal education to the patient and family regarding hemorrhagic strokes. We have reviewed the patient's personal modifiable risk factors including: HTN as well as education on reducing these risk factors. -Patient is being assessed for Rehab by PT/OT/Speech and PM&R if indicated. Fever:Tmax overnight 102, CXR and UA unremarkable -blood cultures, Covid/flu swabs pending -cefepime and vancomycin initiated on 11/23 Dementia (POA): -Continue home Buspar -Discussed delirium with patient's son 11/22. Son reports has had cognitive decline and has issues with short term memory. -Delirium likely secondary to acute illness, hospitalization in addition to baseline dementia. Delirium precautions. Melatonin at bedtime. Seroquel at bedtime PRN. 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 -Spoke with heme, deferring imaging at this time as would likely not change management administrator -Follow up with [facility] one month after discharge -Will start aspirin day 3 post hemorrhage on 11/23 then discontinue on day 10 post hemorrhage and start Apixiban on 11/30 Right thyroid lobe heterogeneous lesion -Incidental seen on CTA brain/neck -OP follow up with PCP for non-emergent thyroid ultrasound Juli Shook [facility] [facility]. Jacque Wheeler APRN-[employer] 11/23/2022 6:21 AM VITAL SIGNS Temp: [98.4 F (36.9 C)-102.1 F (38.9 C)] 98.4 F (36.9 C) Pulse (Heart Rate): [70-98] 87 Resp Rate: [19-28] 26 BP: (106-200)/(54-100) 108/55 O2 Sat (%): [92 %-97 %] 93 % IMAGING/DIAGNOSTIC STUDIES XR CHEST PORTABLE Final Result IMPRESSION: Stable chest. HEAD WITHOUT CONTRAST Final Result IMPRESSION: No interval change when compared to CT head November 20, 2022. CARDIOGRAM Final Result MRI ARTERIOGRAM BRAIN WITHOUT CONTRAST Final Result IMPRESSION: No evidence of AVM or dural aVF. No significant intracranial arterial stenosis or occlusion. BRAIN WITH AND WITHOUT CONTRAST Final Result IMPRESSION: Right occipital parenchymal hemorrhage is again noted with intraventricular extension. T1 hyperintensity associated with the hematoma and in the dependent right cerebral hemisphere. No definite underlying parenchymal enhancement. Consider follow-up imaging in 8-12 weeks to better assess for underlying lesion. Scattered susceptibility artifact in multiple sulci and cerebellar folia, bilateral scattered subarachnoid hemorrhage. While this may all represent acute subarachnoid hemorrhage, cannot exclude a degree of underlying chronic hemosiderin staining. Small foci of mild diffusion restriction in the right frontal and parietal lobes, and most prominently in the left temporal lobe. These may be artifactual due to adjacent subarachnoid hemorrhage, although could represent small subacute infarcts. Prominent area of encephalomalacia in the left frontal lobe with apparent chronic hemosiderin staining. Small amount of enhancement centrally, likely representing an area of scarring. 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 CHEST PORTABLE Final Result IMPRESSION: No acute cardiopulmonary disease HEAD WITHOUT CONTRAST Final Result IMPRESSION: 1. Stable appearance of the right occipital parenchymal hematoma. 2. Stable degree of ventricular extension of blood products without progressing hydrocephalus. 3. Stable small volume of subdural blood products and subarachnoid hemorrhage. ANGIO BRAIN/NECK Final Result IMPRESSION: 1. No spot sign, large vessel arterial occlusion, dissection or aneurysm. 2. 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 Recommend further evaluation with MRA brain. 3. Right thyroid lobe heterogeneous lesion. Recommend correlation with prior imaging if available, or may consider nonemergent thyroid ultrasound. I personally viewed and interpreted these images and I have reviewed and approved this report. STROKE HEAD-STROKE ALERT ONLY Final Result IMPRESSION: 1. Right occipital intraparenchymal hemorrhage with intraventricular extension. Thin subdural hemorrhage and trace subarachnoid hemorrhage. 2. 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 A Critical finding has been discussed with Chris Contreras MD with a read back to Imelda Milton MD on 11/20/2022 5:22 AM . I personally viewed and interpreted these images and I have reviewed and approved this report. BRAIN WITH AND WITHOUT CONTRAST (Results Pending) MEDICATIONS amLODIPine 10 mg Oral Daily Atorvastatin 40 mg Oral Daily busPIRone 5 mg Oral Daily ceFEPIme (MAXIPIME) IVPB 2 g Intravenous Once ceFEPIme (MAXIPIME) IVPB 2 g Intravenous Q8HNS enoxaparin 40 mg Subcutaneous Daily Lisinopril 40 mg Oral Daily Melatonin 3 mg Oral Daily early evening nicotine 1 patch Transdermal Q24H And VERIFY LINKED PATCH PLACEMENT Other Q12H Senna 8.6 mg Oral Daily Vancomycin (VANCOCIN) IVPB 20 mg/kg (Adjusted) Intravenous Q24H Stroke Attending Addendum (Date of service 11/22/22): I have interviewed and examined patient. I have reviewed Cm Sosa CNP's note and agree with the following highlights, additions, and addendums: The patient is a 77 y.o. 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 He presented to [facility] where CT brain showed a 3m right occipital intracerebral hemorrhage with intraventricular hemorrhage. INR 2.9. He was given Vitamin K. He was transferred to [facility] ER and on arrival NIHSS was 0. INR 1.8 and he was given Kcentra. CT angiogram head/neck shows increased vascularity adjacent to tentorium, possible dAVF. NSG consulted. The pateint was started on cardene gtt and admitted to the [facility]. LDL 48, HgbA1c 5.6. MRI brain- chronic CVT L SS and TS, MRA neg. TTE EF 65%. Interval Overnight History: 193/84. Agitation overnight, poor sleep. Neurological examination shows confusion mild left facial droop, NIHSS-2(?-1, LF-1). Assessment/Plan: Coumadin related Acute right occipital Intracerebral hemorrhage Post-bleed day # 3. Coumadin reversed. Stroke work-up completed. Continue Blood pressure control. On lisinopril and norvasc. DVT prophylaxis with SCDs and start lovenox SQ. Nicotine patch. PT/OT consult-ARF. Seroquel at bedtime prn. Increase BP meds. Resume Asa on 11/23/22 and eliquis PBD 10. Filiberto Perez MD Progression of Care Note Expected Discharge Date: Medical Milestones Remaining: lisinopril increased, cardene gtt resumed due to SBP > 200, repeat CTH pending Assessment and Discharge Plan as of 11/22/2022 3:52 PM Patient Choice for Post-Acute Providers Anticipated discharge disposition: Inpatient Rehab Facility Anticipated Services at Discharge: Physical Therapy, Occupational Therapy, Assisted, Outpatient follow up Explanation of Barriers: Medical Stability, IPR referral and choice will be needed Readmission Risk Score Risk of Readmission: 6.1 Category Reference: High:16-100 Mod-High:10-16 Mod-Low: 5-10 Low: 0-5 SIA William, NUCLEAR TECHNOLOGIST [employer] Operator Acute Physical Therapy Treatment Prior to Admission AMPA score(s): PRIOR LEVEL AM-PAC Mobility Raw Score: 24 PRIOR LEVEL AM-PAC Activity Raw Score: 24 Current AM-PAC score(s): CURRENT AM-PAC Mobility Raw Score: 15 Based on the above AM-PAC score(s) and PT clinical judgment, patient is a good candidate for discharge to Inpatient Rehab Facility Supporting Factors (would benefit from skilled therapy services): Impaired functional status, Impaired cognitive status, Impaired self-care abilities, Assistance needed with functional mobility, Fall risk, Recent decline in self-care abilities, Recent decline in cognitive function, Patient status is anticipated to be appropriate to tolerate inpatient rehab therapy requirements at time of discharge from acute care Mobility equipment available at home: straight cane, 4 wheeled walker, 2 wheeled walker ADL equipment available at home: shower chair, grab bars Equipment needed for discharge: to be determined Current therapy frequency recommendation in acute: Therapy Frequency: 5 times a week Precautions and Weightbearing Status: Existing Precautions/Restrictions: fall Patient Safety Communication Prior to Visit: Nursing Subjective: Pt was agreeable to participate in therapy session, confused, and very [place] Pain: General Pain Documentation (Adult, OB, Peds) Presence of Pain: denies pain/discomfort Objective/Observation: Vitals/Vitals Responses to Treatment: WFL Respiratory Status O2 Device: room air Cognition Overall Cognitive Status: Impaired Arousal/Alertness: Delayed responses to stimuli Orientation Level: Oriented to person, Oriented to place Following Commands: Follows one step commands with repetition, Follows one step commands with increased time Extremity Assessments: See PT Evaluation flowsheet for Extremity Measurement updates. Skin and Edema: Balance: Sitting Balance Static Sitting-Level of Assistance: Standby Dynamic Sitting-Level of Assistance: Contact guard Skilled Rationale: Positioning, Sequencing, Hand placement, Verbal cues Standing Balance Static Standing-Level of Assistance: Contact guard Dynamic Standing-Level of Assistance: Moderate assistance Standing-Balance Support: Gait belt Skilled Rationale: Positioning, Hand placement, Verbal cues, Sequencing Standing Balance Skilled Intervention/Details: Pt completed static standing throughout session with contact guard assist. pt with increasing assist to mod assist throughout session during to unsteadiness and LOB Mobility Assessment/Intervention: Supine to Sit Mobility [place] Level: Supine->Sit: stand-by assist Bed Features/Set-up: Supine->Sit: Head of bed elevated, Use of bed rail Skilled Rationale: Positioning, Sequencing, Hand placement, Verbal cues Transfer Assessment/Intervention: Sit to Stand Transfer [place] Level: Sit->Stand: contact guard assist Assistive Device: Sit->Stand: gait belt Skilled Rationale: Positioning, Sequencing, Verbal cues, Hand placement Skilled Intervention/Details: Sit->Stand: Pt completed mulitple sit to stand transfers with contact guard assist Gait/Functional Mobility Assessment/Intervention: Gait Assessment [place] Level: Gait: (min/mod) Assistive Device: Gait: gait belt Ambulation Distance (Feet): 150 Gait Deviations Identified: decreased heidy, decreased gait speed, decreased heel strike, decreased step length, decreased stride length, decreased weight shifting Gait Skilled Rationale: verbal, upright posture, increase step length Skilled Intervention/Details - Gait: Pt completed gait training x 150 feet with min assist intermittent mod assist due to LOB. Pt with mulitple standing rest breaks. Attempted to complete way finding task and visual scanning but patient unable to complete Stairs Assessment/Intervention: Outcome Score(s): CURRENT [facility] Basic Mobility Inpatient Short Form Turning over in bed: 3 - A Little Assistance Sitting/standing from chair: 3 - A Little Assistance Moving from lying on back to sittin - A Little Assistance Moving to and from bed to chair: 3 - A Little Assistance Walk in hospital room: 2 - A Lot of Assistance Climbing 3-5 steps with a railin - Total Assistance CURRENT [facility] Mobility Raw Score: 15 CURRENT [facility] Mobility Functional Limitation/Modifier: 57.70% Currently Impaired in Basic Mobility - CK Interventions: Assessment & Plan: Pt making good progress toward therapy goals, progressed OOB to chair Patient Instruction/Education this session: role of PT and PT plan of care Plan for next session: Continue to progress higher level balance/endurance and independence with gait Acute PT Goals Plan of Care by Brianda Torres PT at 11/22/2022 3:09 PM Version 1 of 1 Problem: PT - Balance/Coordination/Neuro Re-Education Goal: Standing Balance Description: Pt will score >45/56 on scott balance assessment to demonstrate low fall risk and safety with dynamic balance tasks. Outcome: Progressing Toward Goal Problem: PT - Mobility Goal: Ambulation Description: Pt will ambulate 150 feet with out an assistive device with supervision to improve ability to navigate home environment. Outcome: Progressing Toward Goal Problem: PT - Transfers Goal: Supine <-> Sit Description: Pt will perform bed mobility with flat bed & no rail with modified independence in order to improve functional mobility and safety. Outcome: Progressing Toward Goal Goal: Sit <-> Stand Description: Pt will perform sit to/from stand transfers with supervision with least restrictive device in order to improve functional mobility and safety. Outcome: Progressing Toward Goal PT treatment consisted of Therapeutic Activity, Therapeutic Procedure, Gait/Stair Training and Neuro Muscle Re-Education to work and progress towards above goal(s). Treating Therapist: Brianda Torres PT Additional Details: Co-evaluation/co-treatment performed?: Yes, simultaneous billable skilled care This co-treatment session performed between PT and OT was beneficial, necessary and provided distinct services in progressing this person's individual plan of care. Medical complexity with functional deficits that necessitate two skilled therapy disciplines working concurrently to optimize patient's progress towards each discipline's goals. This co-treatment was medically necessary due to patient's: Coordination issues and Postural control. Patient benefits from simultaneous treatment from another therapy discipline to maximize progress towards All Physical Therapy goals. I used facemask, protective eye shield, and gloves in today's patient interaction. Patient location at end of session: bed with head of bed elevated Alarms on at end of session: bed alarm Needs in reach. Time In: 1014 Time Out: 1039 Total Visit Time: 25 minutes Total Treatment Time (skilled, billable minutes): 25 minutes Upon discontinuation of Acute Care Physical Therapy Services or patient discharge from the hospital this note represents the current Physical Therapy Discharge Summary. Acute Occupational Therapy Treatment Prior to Admission AM-PAC Score: PRIOR LEVEL AM-PAC Activity Raw Score: 24 PRIOR LEVEL AM-PAC Mobility Raw Score: 24 Current AM-PAC score(s): CURRENT AM-PAC Activity Raw Score: 15 Based on the above AM-PAC score(s), and OT clinical judgment, discharge destination recommendation is: Inpatient Rehab Facility Supporting Factors (would benefit from skilled therapy services): Patient status is anticipated to be appropriate to tolerate inpatient rehab therapy requirements at time of discharge from acute care, Impaired functional status, Decreased strength, Impaired balance, Decreased endurance, Impaired self-care abilities, Impaired cognitive status, Assistance needed with functional mobility, Fall risk, Recent decline in functional mobility, Recent decline in self-care abilities, Recent decline in cognitive function, Patient has appropriate assistance and setup at home for ultimate discharge to home once patient has progressed functionally following inpatient rehab Mobility equipment available at home: straight cane, 4 wheeled walker, 2 wheeled walker ADL equipment available at home: shower chair, grab bars Equipment recommendations for discharge: to be determined Current therapy frequency recommendation(s) in acute: 5 times a week Precautions and Weightbearing Status: OT Existing Precautions/Restrictions: fall Patient Safety Communication Prior to Visit: Nursing Subjective: Pt agreeable to OT session, flat affect and min verbalizations throughout Pain: General Pain Documentation (Adult, OB, Peds) Presence of Pain: denies pain/discomfort Objective/Observation: Vitals/Vitals Responses to Treatment: VSS Respiratory Status O2 Device: room air Vision Screen Clinical Observations: Able to scan bilat directions in hallway, with repeated cues due to cognition, able to find [place] and identify room numbers Ocular Fixation: Steady Extraocular Movements : Both eyes full range of motion Ocular (Smooth) Pursuits - Descripton: Smooth Ocular Saccades - Quality: (appears intact but limited assess due to cognition and decreased understanding of directions) Visual Processing/Perception: Impaired- attempted clock drawing on whiteboard. [place] and began making bradley on right side of clock only, not going past midline, though none were intelligible numbers. despite repeated cues pt unable to make a clock with all numbers and states I don't understand what I'm supposed to be doing Further visual assessment recommended: Yes Cognition Overall Cognitive Status: Impaired Arousal/Alertness: Delayed responses to stimuli Orientation Level: Oriented to person, Oriented to place Following Commands: Follows one step commands with repetition, Follows one step commands with increased time Safety Judgment: Decreased awareness of need for assistance, Decreased awareness of need for safety Awareness of Errors: Assistance required to identify errors made, Assistance required to correct errors made Deficits: Decreased awareness of deficits Attention Span: Attends with cues to redirect Memory: Decreased short term memory Problem Solving: Assistance required to identify errors made, Assistance required to generate solutions Cognition Comments: Pt with significant impairments in processing, command following, attention to task ADL Assessment/Intervention: ADLs: Grooming Assistance: Minimal Grooming Location: standing at sink Grooming Deficit: Activity tolerance, Generalized weakness, Balance, Wash/dry hands Grooming Skilled Rationale (Verbal/Tactile/Visual/Demonstrati on): Setup, Supervision Grooming Intervention/Details: Pt cued right before he walked into his room to wash his hands at sink. Pt able to repeat back instructions and then stood in doorway pointing to handwashing sign on door. REpeated cues to wash hands at sink. required cues for initiation once there and for sequencing, using soap, finding soap and paper towels LE Dressing Assistance: Minimal LE Dressing Location: edge of bed LE Dressing Deficit: Activity tolerance, Generalized weakness, Balance, Thread RLE into pants, Thread LLE into pants, Pull up over hips LE Dressing Skilled Rationale (Verbal/Tactile/Visual/Demonstrati on): Setup, Supervision, Facilitate positioning LE Dressing Intervention/Details: Pt required increased time and cues for problem solving to don pants in sitting and min A for balance standing to nail puller hips Balance: Sitting Balance Static Sitting-Level of Assistance: Standby Dynamic Sitting-Level of Assistance: Contact guard Skilled Rationale: Verbal cues Standing Balance Static Standing-Level of Assistance: Contact guard Dynamic Standing-Level of Assistance: Moderate assistance Standing-Balance Support: Gait belt Skilled Rationale: Verbal cues, Tactile cues Mobility Assessment/Intervention: Supine to Sit Mobility [place] Level: Supine->Sit: stand-by assist Bed Features/Set-up: Supine->Sit: Head of bed elevated, Use of bed rail Skilled Rationale: Verbal cues, Positioning, Initiation and execution of task Skilled Intervention/Details: Supine->Sit: increased time and initiation cues Transfer Assessment/Intervention: Sit to Stand Transfer [place] Level: Sit->Stand: contact guard assist Assistive Device: Sit->Stand: gait belt Skilled Rationale: Verbal cues, Hand placement Skilled Intervention/Details: Sit->Stand: x2 from EOB Stand to Sit Transfer [place] Level: Stand->Sit: contact guard assist Functional Mobility: Functional Mobility [place] Level: Functional Mobility/Gait: (min-mod A) Assistive Device: Functional Mobility/Gait: gait belt Functional Mobility Distance: Distance needed for common household mobility Functional Mobility Deficits: Balance, Activity tolerance, Way finding Functional Mobility Skilled Rationale: Verbal cues, Tactile cues Skilled Intervention/Details - Functional Mobility/Gait: Pt completed short household distance mobility task with min to mod Ax1 and with cues for posture and balance due to narrow base of support and lateral LOB Outcome Score(s): CURRENT -[facility] Daily Activity Inpatient Short Form Putting on/Taking Off Lower Body Clothin - A Lot of Assistance Bathin - A Lot of Assistance Toiletin - A Lot of Assistance Putting on/Taking Off Upper Body Clothin - A Little Assistance Groomin - A Little Assistance Eatin - A Little Assistance CURRENT -[facility] Activity Raw Score: 15 CURRENT AM-[facility] Activity Functional Limitation/Modifier: 56.46% Currently Impaired in Daily Activity - CK Assessment & Plan: Pt demonstrates increased activity tolerance and standing balance, participation in ADLs from previous session and is making good progress towards goals. Pt continues to present with deficits in balance, activity tolerance, visual perceptual skills, cognition, safety and insight and requires 1- person assist for ADLs and functional transfer and mobility tasks. Pt requires continued skilled OT services to address functional deficits and maximize safety and independence in ADLs for return home with safely. Patient Instruction/Education this session: Patient Instruction: role of OT, deficits, progression of treatment, importance of OOB activity Plan for next session: visual perceptual testing and training, sequencing of ADL tasks Acute OT Goals Plan of Care by Cynthia Kaba OT at 11/22/2022 10:40 AM Version 1 of 1 Problem: OT - Dressing Goal: Lower Body Dressing Description: Pt will complete LE dressing tasks with modified independence for improved ability to complete self-care activities. Outcome: Progressing Toward Goal Problem: OT - ADLs Goal: Grooming Description: Pt will complete grooming in standing with modified independence for improved ability to safely complete ADLs. Outcome: Progressing Toward Goal Problem: OT - Endurance Goal: Endurance Functional Mobilty Around Home Description: Pt will complete distance needed for common household mobility independently. Outcome: Progressing Toward Goal Problem: OT - Visual Scanning Goal: Visual Scanning ADL Description: Pt will employ use of visual compensatory strategies with less than 25% cues to increase participation and safety in ADLs. Outcome: Progressing Toward Goal Problem: OT - Cognition Goal: Cognition simple ADL Description: Pt will demonstrate improved cognition, completing simple ADL task for 10 minutes with less than 25% cues required to maintain attention, sequencing and problem solving for improved safety and success at discharge destination. Outcome: Progressing Toward Goal OT treatment consisted of ADL retraining, balance training, bed mobility training, cognitive training and transfer training to work and progress towards above goal(s). Treating Therapist: Cynthia Kaba OT Additional Details: Co-evaluation/co-treatment performed?: Yes, simultaneous billable skilled care This co-treatment session performed between OT and PT was beneficial, necessary and provided distinct services in progressing this person's individual plan of care. Medical complexity with functional deficits that necessitate two skilled therapy disciplines working concurrently to optimize patient's progress towards each discipline's goals. This co-treatment was medically necessary due to patient's: initial safety assess. Patient benefits from simultaneous treatment from another therapy discipline to maximize progress towards above Occupational Therapy goals. I used gloves and facemask in today's patient interaction. Patient location at end of session: bed with head of bed elevated Alarms on at end of session: bed alarm Needs in reach. Time In: 1016 Time Out: 1039 Total Visit Time: 23 minutes Total Treatment Time (skilled, billable minutes): 23 minutes Upon discontinuation of Acute Care Occupational Therapy Services or patient discharge from the hospital this note represents the current Occupational Therapy Discharge Summary. Neurovascular Stroke Service Intracerebral Hemorrhage Note IDENTIFYING INFORMATION Juli Shook MR# [id number] 11/22/2022 HISTORY OF PRESENT ILLNESS Juli hSook is a 77 y.o. 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 On 11/19 pt complained of severe headache and wanted to throw up. Patient was taken to [facility]. CTH showed 3cm Rt Occipital hemorrhage with extension into the Rt lateral ventricle and old L frontal/cerebellar hemispheric strokes. WBC 15.6, INR 2.9. Vitamin K given. Patient given 2 doses of Labetalol for BP in [id number]'s. On arrival to [facility], SBP in 180's. Glucose 111. NIHSS 0. INR 1.8 here, given Kcentra. HCT showed stable Rt Occipital hemorrhage with extension into the Rt lateral ventricle. 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 Right thyroid lobe heterogeneous lesion. He was started on Nicardipine. INTERVAL HISTORY 11/20: repeat CTH pending, MRI brain P 11/21: Tx to Med surg, lisinopril increased, imaging reviewed 11/22: confusion overnight, lisinopril increased, cardene gtt resumed due to SBP > 200, repeat CTH pending, family updated via phone PHYSICAL EXAM Gen: awake, alert, NAD HEENT: normocephalic, no scalp lesions or tenderness, PERRLA, EOMI Neck: trachea midline, no JVD CV: +S1S2, RRR, no m/r/g Lungs: LCTA bilaterally with equal chest rise Abd: soft, nontender, nondistended, +BS x4 quadrants Extrem: Warm and well perfused, no cyanosis, clubbing, edema, 2+ pulses bilaterally Neuro: Oriented x4, ROWLEY x4, sensation intact and equal bilaterally. CN II - All visual young intact CN II/III - PERRLA CN III/IV/ - EOMI CN V - Mild L facial droop CN VII - Facial movement intact and symmetrical bilaterally CN VIII - Hearing intact CN X - Cough present CN XI - muscular movement of shoulders and sternocleidomastoid muscles intact and equal bilaterally CN XII - midline protrusion of tongue MOTOR EXAMINATION: no drift noted NIHSS Provider NIH Stroke Scale NIH Interval (Provider): daily NIH Level of Conciousness (Provider): 0 NIH LOC Questions (Provider): 0 NIH LOC Commands (Provider): 0 NIH Best Gaze (Provider): 0 NIH Visual (Provider): 0 NIH Facial Palsy (Provider): 1 NIH Left Arm Motor (Provider): 0 NIH Right Arm Motor (Provider): 0 NIH Left Leg Motor (Provider): 0 NIH Right Leg Motor (Provider): 0 NIH Limb Ataxia (Provider): 0 NIH Sensory (Provider): 0 NIH Best Language (Provider): 0 NIH Dysarthria (Provider): 0 NIH Extinction and Inattention (Provider): 0 NIH Total Score (Provider): 1 Intracerebral Hemorrhage Volume Intracerebral Hemorrhage Score Score 30 Day Mortality following ICH 0 0% Mortality 1 13% Mortality 2 26% Mortality 3 72% Mortality 4 97% Mortality 5 100% Mortality ASSESSMENT AND PLAN Neuro: R occipital IPH with IVH (ICH score 1) 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 Thin SDH, trace SAH. 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 Right thyroid lobe heterogeneous lesion MRI brain: Rt IPH w/ IVH. Scattered SAH, may be d/t chronic hemosiderin standing. Area of encephalomalacia in left frontal lobe. 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 MRA brain: No AVM or dAVF ECHO TTE EF 65-70%, no significant valvular disease LDL 48, A1c 5.6 11/22 repeat CTH pending DVT ppx started Hemorrhagic Stroke Core Measures -MSISS on admission 0 -Patient has been started on Mechanical (SCD's) and Pharmacological (SQ heparin) DVT prophylaxis will be started after stable HCT. -Antiplatelet therapy is not indicated. -Anticoagulation therapy not indicated in hemorrhagic stroke -Patients LDL 48 and HgbA1c 5.6 were checked and the patient will be discharged on a lipid lowering Statin medication if LDL is greater than 100. -Dysphagia screening ordered, and will be completed prior to patient receiving oral intake. -Stroke education booklet has been provided both written and verbal education to the patient and family regarding hemorrhagic strokes. We have reviewed the patient's personal modifiable risk factors including: HTN as well as education on reducing these risk factors. -Patient is being assessed for Rehab by PT/OT/Speech and PM&R if indicated. Delirium Dementia (POA): -Continue home Buspar -Discussed delirium with patient's son 11/22. Son reports has had cognitive decline and has issues with short term memory. -Delirium likely secondary to acute illness, hospitalization in addition to baseline dementia. Delirium precautions. Melatonin at bedtime. Seroquel at bedtime PRN. 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 -Spoke with heme, deferring imaging at this time as would likely not change management administrator -Follow up with heme one month after discharge -Will start aspirin day 3 post hemorrhage on 11/23 then discontinue on day 10 post hemorrhage and start Apixiban on 11/30 Right thyroid lobe heterogeneous lesion -Incidental seen on CTA brain/neck -OP follow up with PCP for non-emergent thyroid ultrasound Juli Shook will likely be discharged to [facility]. Cm Sosa APRN-[employer] 11/22/2022 1:48 PM VITAL SIGNS Temp: [99 F (37.2 C)-100.8 F (38.2 C)] 100.8 F (38.2 C) Pulse (Heart Rate): [63-92] 81 Resp Rate: [18-24] 20 BP: (124-200)/(63-97) 168/79 O2 Sat (%): [92 %-96 %] 94 % IMAGING/DIAGNOSTIC STUDIES ECHOCARDIOGRAM Final Result MRI ARTERIOGRAM BRAIN WITHOUT CONTRAST Final Result IMPRESSION: No evidence of AVM or dural aVF. No significant intracranial arterial stenosis or occlusion. BRAIN WITH AND WITHOUT CONTRAST Final Result IMPRESSION: Right occipital parenchymal hemorrhage is again noted with intraventricular extension. T1 hyperintensity associated with the hematoma and in the dependent right cerebral hemisphere. No definite underlying parenchymal enhancement. Consider follow-up imaging in 8-12 weeks to better assess for underlying lesion. Scattered susceptibility artifact in multiple sulci and cerebellar folia, bilateral scattered subarachnoid hemorrhage. While this may all represent acute subarachnoid hemorrhage, cannot exclude a degree of underlying chronic hemosiderin staining. Small foci of mild diffusion restriction in the right frontal and parietal lobes, and most prominently in the left temporal lobe. These may be artifactual due to adjacent subarachnoid hemorrhage, although could represent small subacute infarcts. Prominent area of encephalomalacia in the left frontal lobe with apparent chronic hemosiderin staining. Small amount of enhancement centrally, likely representing an area of scarring. 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 CHEST PORTABLE Final Result IMPRESSION: No acute cardiopulmonary disease HEAD WITHOUT CONTRAST Final Result IMPRESSION: 1. Stable appearance of the right occipital parenchymal hematoma. 2. Stable degree of ventricular extension of blood products without progressing hydrocephalus. 3. Stable small volume of subdural blood products and subarachnoid hemorrhage. ANGIO BRAIN/NECK Final Result IMPRESSION: 1. No spot sign, large vessel arterial occlusion, dissection or aneurysm. 2. 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 Recommend further evaluation with MRA brain. 3. Right thyroid lobe heterogeneous lesion. Recommend correlation with prior imaging if available, or may consider nonemergent thyroid ultrasound. I personally viewed and interpreted these images and I have reviewed and approved this report. STROKE HEAD-STROKE ALERT ONLY Final Result IMPRESSION: 1. Right occipital intraparenchymal hemorrhage with intraventricular extension. Thin subdural hemorrhage and trace subarachnoid hemorrhage. 2. 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 A Critical finding has been discussed with Chris Contreras MD with a read back to Imelda Milton MD on 11/20/2022 5:22 AM . I personally viewed and interpreted these images and I have reviewed and approved this report. BRAIN WITH AND WITHOUT CONTRAST (Results Pending) CT HEAD WITHOUT CONTRAST (Results Pending) MEDICATIONS amLODIPine 10 mg Oral Daily Atorvastatin 40 mg Oral Daily busPIRone 5 mg Oral Daily enoxaparin 40 mg Subcutaneous Daily Lisinopril 40 mg Oral Daily Melatonin 3 mg Oral Daily early evening nicotine 1 patch Transdermal Q24H And VERIFY LINKED PATCH PLACEMENT Other Q12H Senna 8.6 mg Oral Daily Acute Physical Therapy Evaluation Prior to Admission [facility] score(s): PRIOR LEVEL AM-PAC Mobility Raw Score: 24 Current AM-PAC score(s): CURRENT AM-PAC Mobility Raw Score: 18 Based on the above AM-PAC score(s) and PT clinical judgment, patient is a good candidate for discharge to Inpatient Rehab Facility Supporting Factors (would benefit from skilled therapy services): Impaired functional status, Impaired cognitive status, Impaired self-care abilities, Assistance needed with functional mobility, Fall risk, Recent decline in self-care abilities, Recent decline in cognitive function, Patient status is anticipated to be appropriate to tolerate inpatient rehab therapy requirements at time of discharge from acute care Mobility equipment available at home: straight cane, 4 wheeled walker, 2 wheeled walker ADL equipment available at home: shower chair, grab bars Equipment needed for discharge: to be determined Current therapy frequency recommendation in acute: Therapy Frequency: 5 times a week Precautions and Weightbearing Status: Existing Precautions/Restrictions: fall, other (see comment) (SBP <140) Patient Safety Communication Prior to Visit: Nursing, Physician, [employer]/PA (Discussed pt's case extensively with and pt cleared by Johnnie Bhandari) Subjective: Patient semi-recumbent in bed with family present upon arrival of PT. Patient agreeable to therapy session. RICHAR[place]ON [place] therapy for session. Patient is [place] and demonstrates tremors with progression of session. Cleared by Johnnie Bhandari NP and Brook Dimas NP prior to arrival and beginning of evaluation. Pain: General Pain Documentation (Adult, OB, Peds) Presence of Pain: denies pain/discomfort Home Setting Residence: House Lives With: spouse First floor setup: bedroom, tub shower Number of stairs to enter home: 2 Stair Railings at Home: entry - with rail Mobility Equipment Available: straight cane, 4 wheeled walker, 2 wheeled walker ADL Equipment Available: shower chair, grab bars Home Environment Details: Denies falls Previous Level of Function Prior level ADL Overview: Independent with all ADLs Bed Mobility/Transfers: independent Ambulation Skills: independent Assistive Device: none used Level of Ambulation: community Prior Level of Function Details: drive, retired, helps to care for spouse but denies needing to assist with dressing, bathing or mobiltiy Objective/Observation: Vitals/Vitals Responses to Treatment: BP elevated at rest in 160s with HOB 30 degrees. Re-assessed after 2 mins with minor drop to 155 mmHg. Assessed if any drop with repositioning HOB to >45 degrees. Has increase back to mid 160s. Deferred progression of mobility due to SBP goal <140 mmHg. Will re-attempt at next session with BP management and maintained within goal limit. Respiratory Status O2 Device: room air Cognition Overall Cognitive Status: Impaired Arousal/Alertness: Delayed responses to stimuli ([place]) Orientation Level: Oriented to person, Oriented to time (oriented to month and year but not day) Following Commands: Follows multistep commands with increased time, Follows multistep commands with repetition, Follows commands 50-75% of the time Safety Judgment: Decreased awareness of need for safety, Decreased awareness of need for assistance Awareness of Errors: Assistance required to identify errors made, Assistance required to correct errors made Deficits: Decreased awareness of deficits Attention Span: Appears intact Memory: Decreased recall of recent events Problem Solving: Assistance required to identify errors made, Assistance required to generate solutions, Assistance required to implement solutions Cognition Comments: Patient has difficulty with coordinating and sequencing tasks Vision Screen Currently wearing corrective lenses: Reading only, No Visual Impairments Observed?: No Speech Speech: no gross deficits noted Successful Methods (Communication Strategies): verbal speech Hearing Hearing: hard of hearing, hearing aids (R side only on evaluation) Extremity Assessments: RLE Assessment RLE Assessment: Strength WFL, AROM WFL Right LE Assessment Details: grossly 4+/5 LLE Assessment LLE Assessment: Strength WFL, AROM WFL Left LE Assessment Details: grossly 4+/5 Sensation Overall Sensation: Impaired Extinction: Negative, Upper extremity, Lower extremity Sensation Comments: initially accurate but with progression of assessment, had x2 errors perseverating on L side sensation Mobility Assessment: Balance: Sitting Balance Sitting Balance Skilled Intervention/Details: unable to progress to unsupported sitting EOB due ot elevated BP at rest Transfer Assessment: Gait/Functional Mobility: Wheelchair Assessment Patient currently uses wheelchair?: No Stairs: Outcome Score(s): CURRENT AM-PAC Basic Mobility Inpatient Short Form Turning over in bed: 3 - A Little Assistance Sitting/standing from chair: 3 - A Little Assistance Moving from lying on back to sittin - A Little Assistance Moving to and from bed to chair: 3 - A Little Assistance Walk in hospital room: 3 - A Little Assistance Climbing 3-5 steps with a railin - A Little Assistance CURRENT [facility] Mobility Raw Score: 18 CURRENT [facility] Mobility Functional Limitation/Modifier: 46.58% Currently Impaired in Basic Mobility - CK Interventions: Assessment & Plan: Patient was admitted for Nontraumatic intracerebral hemorrhage, unspecified cerebral location, unspecified laterality [I61.9] and seen for therapy evaluation related to impaired coordination, impaired activity tolerance, impaired functional mobility preventing patient from completing functional tasks independently and safely. Exam findings include impairments in: Balance, Coordination, Transfers, Gait/Locomotion, Cognition/Arousal/Attention, Aerobic capacity/endurance. These impairments contribute to functional limitations including Decreased ambulation distance/endurance, Limited standing tolerance, Limited sitting tolerance, Difficulty with transfers, Decreased functional mobility, Increased fall risk. Current clinical presentation is Unstable - unstable and unpredictable characteristics - safety risk (High). Patient history factors impacting Plan Of Care include HTN, factor V leiden on warfarin, dementia, HLD, CAD, DVT x2 s/p IVC filter, previous hx of frontal IPH (2019). Patient will benefit from skilled physical therapy to address these impairments, functional limitations, and participation restrictions and has good rehab potential to achieve therapy goals. Planned Therapy Interventions: balance training, bed mobility training, functional activity tolerance, gait training, neuromuscular re-education, motor coordination training, transfer training Patient Instruction/Education this session: role of PT and goal of session Plan for next session: progress with OOB mobiltiy as BP allows Acute PT Goals Plan of Care by Paige Turcios PT at 11/21/2022 3:44 PM Version 1 of 1 Problem: PT - Balance/Coordination/Neuro Re-Education Goal: Standing Balance Description: Pt will score >45/56 on scott balance assessment to demonstrate low fall risk and safety with dynamic balance tasks. Outcome: Ongoing Problem: PT - Mobility Goal: Ambulation Description: Pt will ambulate 150 feet with out an assistive device with supervision to improve ability to navigate home environment. Outcome: Ongoing Goal: Stairs Description: Pt will ascend/descend 2 stairs with 1 railings with supervision with out an assistive device to improve ability to perform functional mobility necessary in recommended discharge environment. Outcome: Ongoing Problem: PT - Transfers Goal: Supine <-> Sit Description: Pt will perform bed mobility with flat bed & no rail with modified independence in order to improve functional mobility and safety. Outcome: Ongoing Goal: Sit <-> Stand Description: Pt will perform sit to/from stand transfers with supervision with least restrictive device in order to improve functional mobility and safety. Outcome: Ongoing Goal: Stand-Pivot Description: Pt will perform stand/pivot transfer to/from bed/chair/commode with supervision with least restrictive device in order to improve functional mobility and safety. Outcome: Ongoing Evaluating Therapist: Paige Turcios PT Additional Details: Co-evaluation/co-treatment performed?: Yes, simultaneous billable skilled care This co-evaluation session performed between PT and OT was beneficial, necessary and provided distinct services in establishing this person's individual plan of care. Medical complexity with functional deficits necessitated two skilled therapy disciplines working concurrently to determine each discipline's goals. This co-treatment was medically necessary due to patient's: activity tolerance I used gloves and facemask in today's patient interaction. Evaluation Complexity Components History: High (3 personal factors and/or comorbidities) Body Systems Review: High (Addressing a total of 4 or more elements) Clinical Presentation: Unstable - unstable and unpredictable characteristics - safety risk (High) Clinical Decision Making: High Time In: 1418 Time Out: 1435 Total Visit Time: 17 minutes Total Treatment Time (skilled, billable minutes): 17 minutes Patient location at end of session: bed with head of bed elevated and RN aware Alarms on at end of session: bed alarm Needs in reach. Upon discontinuation of Acute Care Physical Therapy Services or patient discharge from the hospital this note represents the current Physical Therapy Discharge Summary. Neurovascular Stroke Service Intracerebral Hemorrhage Note IDENTIFYING INFORMATION Juli Shook MR# [id number] 11/21/2022 HISTORY OF PRESENT ILLNESS Juli Shook is a 77 y.o. 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 On 1/24 pt complained of severe headache and wanted to throw up. Patient was taken to [facility]. CTH showed 3cm Rt Occipital hemorrhage with extension into the Rt lateral ventricle and old L frontal/cerebellar hemispheric strokes. WBC 15.6, INR 2.9. Vitamin K given. Patient given 2 doses of Labetalol for BP in ati847's. On arrival to [facility], SBP in 180's. Glucose 111. NIHSS 0. INR 1.8 here, given Kcentra. HCT showed stable Rt Occipital hemorrhage with extension into the Rt lateral ventricle. 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 Right thyroid lobe heterogeneous lesion. He was started on Nicardipine. INTERVAL HISTORY 11/20: repeat CTH pending, MRI brain P 11/21: Tx to Med surg, lisinopril increased, imaging reviewed PHYSICAL EXAM Gen: awake, alert, NAD HEENT: normocephalic, no scalp lesions or tenderness, PERRLA, EOMI Neck: trachea midline, no JVD CV: +S1S2, RRR, no m/r/g Lungs: LCTA bilaterally with equal chest rise Abd: soft, nontender, nondistended, +BS x4 quadrants Extrem: Warm and well perfused, no cyanosis, clubbing, edema, 2+ pulses bilaterally Neuro: Oriented x4, ROWLEY x4, sensation intact and equal bilaterally. CN II - All visual young intact CN II/III - PERRLA CN III/IV/ - EOMI CN V - Mild L facial droop CN VII - Facial movement intact and symmetrical bilaterally CN VIII - Hearing intact CN X - Cough present CN XI - muscular movement of shoulders and sternocleidomastoid muscles intact and equal bilaterally CN XII - midline protrusion of tongue MOTOR EXAMINATION: no drift noted NIHSS Provider NIH Stroke Scale NIH Interval (Provider): daily NIH Level of Conciousness (Provider): 0 NIH LOC Questions (Provider): 0 NIH LOC Commands (Provider): 0 NIH Best Gaze (Provider): 0 NIH Visual (Provider): 0 NIH Facial Palsy (Provider): 1 NIH Left Arm Motor (Provider): 0 NIH Right Arm Motor (Provider): 0 NIH Left Leg Motor (Provider): 0 NIH Right Leg Motor (Provider): 0 NIH Limb Ataxia (Provider): 0 NIH Sensory (Provider): 0 NIH Best Language (Provider): 0 NIH Dysarthria (Provider): 0 NIH Extinction and Inattention (Provider): 0 NIH Total Score (Provider): 1 Intracerebral Hemorrhage Volume Intracerebral Hemorrhage Score Score 30 Day Mortality following ICH 0 0% Mortality 1 13% Mortality 2 26% Mortality 3 72% Mortality 4 97% Mortality 5 100% Mortality ASSESSMENT AND PLAN Neuro: R occipital IPH with IVH (ICH score 1) 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 Thin SDH, trace SAH. 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 Right thyroid lobe heterogeneous lesion MRI brain:Rt IPH w/ IVH. Scattered SAH, may be d/t chronic hemosiderin standing. Area of encephalomalacia in left frontal lobe. 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 MRA brain: No AVM or dAVF ECHO TTE EF 65-70%, no significant valvular disease LDL 48, A1c 5.6 Hemorrhagic Stroke Core Measures -NHISS on admission 0 -Patient has been started on Mechanical (SCD's) and Pharmacological (SQ heparin) DVT prophylaxis will be started after stable HCT. -Antiplatelet therapy is not indicated. -Anticoagulation therapy not indicated in hemorrhagic stroke -Patients LDL 48 and HgbA1c 5.6 were checked and the patient will be discharged on a lipid lowering Statin medication if LDL is greater than 100. -Dysphagia screening ordered, and will be completed prior to patient receiving oral intake. -Stroke education booklet has been provided both written and verbal education to the patient and family regarding hemorrhagic strokes. We have reviewed the patient's personal modifiable risk factors including: HTN as well as education on reducing these risk factors. -Patient is being assessed for Rehab by PT/OT/Speech and PM&R if indicated. Dementia (POA): -Continue home Buspar Tobacco Abuse (POA): -Duoneb q 6 hours -Chest xray no acute process -Uses 3 pipes per day, has been trying to cut back, not ready to quit -Smoking cessation encouraged -Denies needing nicotine patch Essential HTN (POA): HLD (POA): CAD (POA): -Cardene weaned off -resumed lisinopril 20 mg daily and norvasc 5 mg daily -TTE EF 65-70%, no significant valvular disease -LDL 48-continue home atorvastatin 40 mg daily -EKG: Sinus bradycardia, QTc 453 -Troponin 12 Hypercoagulable state 2/2 Factor V deficiency (POA): Multiple DVT x2/PE s/p IVC filter (POA): -Goal plt >100, INR <1.4, Hgb >7 -Heme consulted while in ICU, recommend: Anti-cardionlipin IgG/IgM (ordered) Beta2 glycoprotein (ordered) Lupus anticoagulant (ordered) Consider BLE dopplers and abd imaging to assess clot burden and IVC filter Recommend apixiban 2.5 mg po BID when safe from neurosurgical perspective (unless triple positive APLS) Follow up with [facility] ([phone]), we will request appointment in 1 month. -Spoke with [facility], deferring imaging at this time as would likely not change management administrator -Follow up with [facility] one month after discharge -Will start aspirin day 3 post hemorrhage on 11/23 then discontinue on day 10 post hemorrhage and start Apixiban on 11/30 Right thyroid lobe heterogeneous lesion -Incidental seen on CTA brain/neck -OP follow up with PCP for non-emergent thyroid ultrasound Juli Shook will likely be discharged to [facility]. Johnnie Bhandari, CELE[employer] 11/21/2022 2:56 PM VITAL SIGNS Temp: [98.4 F (36.9 C)-100.6 F (38.1 C)] 99 F (37.2 C) Pulse (Heart Rate): [54-82] 74 Resp Rate: [16-25] 20 BP: (118-176)/(55-89) 155/72 O2 Sat (%): [91 %-95 %] 92 % Weight: [61.6 kg (135 lb 12.9 oz)] 61.6 kg (135 lb 12.9 oz) IMAGING/DIAGNOSTIC STUDIES ECHOCARDIOGRAM Final Result MRI ARTERIOGRAM BRAIN WITHOUT CONTRAST Final Result IMPRESSION: No evidence of AVM or dural aVF. No significant intracranial arterial stenosis or occlusion. BRAIN WITH AND WITHOUT CONTRAST Final Result IMPRESSION: Right occipital parenchymal hemorrhage is again noted with intraventricular extension. T1 hyperintensity associated with the hematoma and in the dependent right cerebral hemisphere. No definite underlying parenchymal enhancement. Consider follow-up imaging in 8-12 weeks to better assess for underlying lesion. Scattered susceptibility artifact in multiple sulci and cerebellar folia, bilateral scattered subarachnoid hemorrhage. While this may all represent acute subarachnoid hemorrhage, cannot exclude a degree of underlying chronic hemosiderin staining. Small foci of mild diffusion restriction in the right frontal and parietal lobes, and most prominently in the left temporal lobe. These may be artifactual due to adjacent subarachnoid hemorrhage, although could represent small subacute infarcts. Prominent area of encephalomalacia in the left frontal lobe with apparent chronic hemosiderin staining. Small amount of enhancement centrally, likely representing an area of scarring. 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 CHEST PORTABLE Final Result IMPRESSION: No acute cardiopulmonary disease HEAD WITHOUT CONTRAST Final Result IMPRESSION: 1. Stable appearance of the right occipital parenchymal hematoma. 2. Stable degree of ventricular extension of blood products without progressing hydrocephalus. 3. Stable small volume of subdural blood products and subarachnoid hemorrhage. ANGIO BRAIN/NECK Final Result IMPRESSION: 1. No spot sign, large vessel arterial occlusion, dissection or aneurysm. 2. 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 Recommend further evaluation with MRA brain. 3. Right thyroid lobe heterogeneous lesion. Recommend correlation with prior imaging if available, or may consider nonemergent thyroid ultrasound. I personally viewed and interpreted these images and I have reviewed and approved this report. STROKE HEAD-STROKE ALERT ONLY Final Result IMPRESSION: 1. Right occipital intraparenchymal hemorrhage with intraventricular extension. Thin subdural hemorrhage and trace subarachnoid hemorrhage. 2. 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 A Critical finding has been discussed with Chris Contreras MD with a read back to Imelda Milton MD on 11/20/2022 5:22 AM . I personally viewed and interpreted these images and I have reviewed and approved this report. BRAIN WITH AND WITHOUT CONTRAST (Results Pending) MEDICATIONS amLODIPine 10 mg Oral Daily Atorvastatin 40 mg Oral Daily busPIRone 5 mg Oral Daily Ipratropium-albuterol 3 mL Nebulization Q6HNS Lisinopril 10 mg Oral Once [START ON 11/22/2022] Lisinopril 20 mg Oral Daily Senna 8.6 mg Oral Daily Acute Occupational Therapy Evaluation Prior to Admission AM-PAC Score: PRIOR LEVEL AM-PAC Activity Raw Score: 24 Current AM-PAC score(s): CURRENT AM-PAC Activity Raw Score: 14 Based on the above AM-PAC score(s) and OT clinical judgment, discharge destination recommendation is: Inpatient Rehab Facility Supporting Factors (would benefit from skilled therapy services): Patient status is anticipated to be appropriate to tolerate inpatient rehab therapy requirements at time of discharge from acute care, Impaired functional status, Decreased strength, Impaired balance, Decreased endurance, Impaired self-care abilities, Impaired cognitive status, Assistance needed with functional mobility, Fall risk, Recent decline in functional mobility, Recent decline in self-care abilities, Recent decline in cognitive function, Patient has appropriate assistance and setup at home for ultimate discharge to home once patient has progressed functionally following inpatient rehab Mobility equipment available at home: straight cane, 4 wheeled walker, 2 wheeled walker ADL equipment available at home: shower chair, grab bars Equipment recommendations for discharge: to be determined Current therapy frequency recommendation(s) in acute: 5 times a week Precautions and Weightbearing Status: OT Existing Precautions/Restrictions: fall (systolic goal <140) Telemetry Patient Safety Communication Prior to Visit: Nursing, Physician, [employer]/PA (Discussed pt's case extensively with and pt cleared by Johnnie Bhandari APRN-[employer] and Brook Dimas HOME PARAPROFESSIONAL) Subjective: Patient met in bed, agreeable to treatment session. Pain: General Pain Documentation (Adult, OB, Peds) Presence of Pain: denies pain/discomfort Home Setting Residence: House Lives With: spouse First floor setup: bedroom, tub shower Number of stairs to enter home: 2 Stair Railings at Home: entry - with rail Mobility Equipment Available: straight cane, 4 wheeled walker, 2 wheeled walker ADL Equipment Available: shower chair, grab bars Home Environment Details: Denies falls Previous Level of Function Prior level ADL Overview: Independent with all ADLs Bed Mobility/Transfers: independent Ambulation Skills: independent Assistive Device: none used Level of Ambulation: community Prior Level of Function Details: drive, retired, helps to care for spouse but denies needing to assist with dressing, bathing or mobiltiy Objective/Observation: Vitals/Vitals Responses to Treatment: BP elevated at rest in 160s with HOB 30 degrees. Re-assessed after 2 mins with minor drop to 155 mmHg. Assessed if any drop with repositioning HOB to >45 degrees. Has increase back to mid 160s. Deferred progression of mobility due to SBP goal <140 mmHg. Will re-attempt at next session with BP management and maintained within goal limit. Respiratory Status O2 Device: room air Vision Screen Currently wearing corrective lenses: Reading only, No Visual Impairments Observed?: No Speech Speech: no gross deficits noted Successful Methods (Communication Strategies): verbal speech Hearing Hearing: hard of hearing, hearing aids (Rt hearing aid only) Cognition Overall Cognitive Status: Impaired Arousal/Alertness: Delayed responses to stimuli ([place]) Orientation Level: Oriented to person, Oriented to place Following Commands: Follows multistep commands with increased time, Follows commands greater than 75% of the time Safety Judgment: Decreased awareness of need for safety Awareness of Errors: Assistance required to identify errors made Deficits: Decreased awareness of deficits Attention Span: Appears intact Memory: Decreased recall of recent events Problem Solving: Assistance required to generate solutions Cognition Comments: Pt with hx of dementia and prior frontal IPH. Unsure of patient's baseline cognition as family not present. ADLs: ADL Anticipated Performance (ADLs not directly observed this session): Eating, Grooming, Bathing, UE Dressing, LE Dressing, Toileting Eating Assistance: Set up supervision Grooming Assistance: Minimal Bathing Assistance: Maximal UE Dressing Assistance: Maximal LE Dressing Assistance: Maximal Toilet Assistance: Maximal Extremity Assessments: Hand Training Consultant Strength Hand Training Consultant Strength Interpretation: Left below expected range (weak), Right below expected range (weak) Hand Training Consultant Strength Indications: Will benefit from UE strengthening, Increased risk of readmission, Risk of fragility, Need for increased assistance with ADLs RUE Assessment RUE Assessment: Within Functional Limits Right UE Assessment Details: grossly 3+/5 LUE Assessment LUE Assessment: Within Functional Limits Left UE Assessment Details: grossly 3+/5 Balance: Sitting Balance Sitting Balance Skilled Intervention/Details: unable to progress to unsupported sitting EOB due ot elevated BP at rest Neuro: Sensation Overall Sensation: Intact Proprioception Proprioception: intact Gross Coordination Gross Coordination: LUE impaired, RUE impaired Skin and Edema: Skin Integrity Skin Integrity Description: WFL Edema Edema: none noted Functional Mobility: Wheelchair Assessment Patient currently uses wheelchair?: No Outcome Score(s): CURRENT [facility] Daily Activity Inpatient Short Form Putting on/Taking Off Lower Body Clothin - A Lot of Assistance Bathin - A Lot of Assistance Toiletin - A Lot of Assistance Putting on/Taking Off Upper Body Clothin - A Lot of Assistance Groomin - A Little Assistance Eatin - A Little Assistance CURRENT [facility] Activity Raw Score: 14 CURRENT [facility] Activity Functional Limitation/Modifier: 59.67% Currently Impaired in Daily Activity - CK Assessment & Plan: Patient was admitted for nontraumatic intracerebral hemorrhage, unspecified cerebral location, unspecified laterality [I61.9] and seen for therapy evaluation related to decreased functional performance skills and independence in self care ADLs and functional mobility d/t deficits noted above. Exam findings include impairments in: balance, cognitive impairments, ROM, strength, transfers, ergonomics and body mechanics, endurance, coordination. These impairments contribute to occupational performance limitations including bathing, grooming, toileting, functional mobility, dressing. The following factors impact the plan of care: psychosocial impairments, elevated BP Patient will benefit from skilled occupational therapy to address these impairments, occupational performance limitations, and participation restrictions. Patient's rehab potential is: good, to achieve stated therapy goals. Planned Therapy Interventions (OT Eval): ADL retraining, bed mobility training, balance training, functional activity tolerance, ROM (range of motion), strengthening, transfer training Patient Instruction/Education this session: Patient Instruction: OT role, POC Plan for next session: ADLs EOB once medically appropriate Acute OT Goals Plan of Care by William Lucas OT at 11/21/2022 2:17 PM Version 1 of 1 Problem: OT - Dressing Goal: Lower Body Dressing Description: Pt will complete LE dressing tasks with modified independence for improved ability to complete self-care activities. Outcome: Ongoing Problem: OT - ADLs Goal: Grooming Description: Pt will complete grooming in standing with modified independence for improved ability to safely complete ADLs. Outcome: Ongoing Problem: OT - Endurance Goal: Endurance Functional Mobilty Around Home Description: Pt will complete distance needed for common household mobility independently. Outcome: Ongoing Problem: OT - Other Goal: Energy Conservation Description: Pt will follow energy conservation techniques appropriately 75% of the time during ADLs and functional mobility to conserve energy and maximize functional performance. Outcome: Ongoing OT treatment consisted of energy conservation/endurance training, range of motion, strengthening to work and progress towards above goal(s). Evaluating Therapist: William Lucas OT Additional Details: Co-evaluation/co-treatment performed?: Yes, simultaneous billable skilled care This co-treatment session performed between OT and PT was beneficial, necessary and provided distinct services in progressing this person's individual plan of care. Medical complexity with functional deficits that necessitate two skilled therapy disciplines working concurrently to optimize patient's progress towards each discipline's goals. This co-treatment was medically necessary due to patient's: Postural control. Patient benefits from simultaneous treatment from another therapy discipline to maximize progress towards energy conservation Occupational Therapy goals. I used facemask, protective eye shield, and gloves in today's patient interaction. OT Evaluation Complexity Occupational Profile and Client History: High - extensive history Assessment of Occupational Performance: High (5 or more performance deficits) Clinical Decision/Performance Deficits: High (comprehensive assessments w/multiple treatment options) Time In: 1417 Time Out: 1435 Total Visit Time: 18 minutes Total Treatment Time (skilled, billable minutes): 18 minutes Patient location at end of session: bed with head of bed elevated Alarms on at end of session: bed alarm and RN aware Needs in reach. Upon discontinuation of Acute Care Occupational Therapy Services or patient discharge from the hospital this note represents the current Occupational Therapy Discharge Summary. NEUROCRITICAL CARE HISTORY AND PHYSICAL HOSPITAL VISIT DEMOGRAPHICS Patient: Juli Shook Code status: DNRCC-ARREST Admission date: 11/20/2022 5:06 AM Hospital days: LOS: 1 day CHIEF COMPLAINT Nausea/IPH with IVH HISTORY OF PRESENT ILLNESS Juli Shook is a 77 y.o. male with a past history of HTN, Factor V Leiden (Heterozygous) on warfarin, Dementia, HLD, CAD, Multiple DVT/PE x2 s/p IVC filter, IPH (2016, 2018), Current Smoker (pipe). Mr. Shook was transferred to [facility] after presenting to an OSH with a Right occipital IPH. Patient states he started vomiting earlier today. Went to OSH where CTH showed R occipital IPH (ICH score 1) with intraventricular extension. INR 2.9. Transferred to [facility] for further management after receiving vitamin K Upon arrival to [facility] 14. Rpt CT stable bleed but slight increase in IVH. No sign of obstructive hydrocephalous. INR 1.8. ICH score 1. Given Vit K and 541 units Kcentra (not full weight based dose) 2/2 hx of factor V deficiency INTERVAL HISTORY SINCE ADMISSION 11/20/2022: Admitted to [facility] 11/20: Consult Heme, Chest X-Ray, Amlodipine, MRI, MRA 11/21: ON: no events AM: Atarax, Neuros and VS q 4 hr PHYSICAL EXAM GENERAL: Alert, no acute distress, HEENT: normocephalic, CARDIO: +S1S2, RRR, Tele: no edema PULM: LCTA throughout matthias, diminished matthias LL. Respirations are easy and unlabored. Equal chest rise. ABDOMINAL: soft, nontender, nondistended, active bowel sounds : voiding without difficulty EXTREMITIES/VASCULAR: 2+ distal pulses x4, capillary refill <3 seconds NEURO: Mental status: alert; oriented to person, place,and month; good attention Speech/language: fluent; comprehension intact; object naming intact; repetition intact Cranial nerves: CN II: Visual young intact to confrontation except appears to have partial left upper outer field cut. PERRL- 3 mm chief technical officer III, IV and : EOMI. No nystagmus. CN V: Facial sensation intact to light touch. CN VII: slight left facial droop CN VIII: Hearing is grossly intact. CN IX and X: Soft palate elevates symmetrically in the midline CN XI: Shoulder shrug and sternocleidomastoid strength 5/5 bilaterally CN XII: Tongue is midline with normal movement; no fasciculations Motor: Normal bulk and tone. No Extremity Drift x4. Extremities 5/5 RUE, RLE, LUE, LLE 4/5 (pt states that he has hip pain on the left that hinders his movement) Sensation: Extremity sensation intact throughout. 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 IVH. Stable sd and sah. Mass effect, MLS. - 11/20 MRI B w/ & w/out: Rt IPH w/ IVH. Scattered SAH, may be d/t chronic hemosiderin standing. Area of encephalomalacia in left frontal lobe. 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 Consider follow up imaging in 8-12 wks to assess for underlying lesion. - 11/20 MRA: no AVM or dAVF - Cytotoxic Cerebral Edema Management: - Goal Na normonatremia; monitor - Hemorrhage presumably 2/2 unknown etiology; evaluation for cause and source: - Complete TTE (see cards) - Obtain LDL level and statin therapy if indicated (see cards) - Obtain HA1C level (see endo) - Defer antiplatelet therapy and therapeutic anticoagulation - Consider urine drug screen on admission if no stroke risk factors - Consider hypercoagulability panel 24H-post tPA if no stroke risk factors - Initiate VTE prophylaxis after bleed stability established (see heme) - Pain/Sedation management - Tylenol 650mg Q4H PRN Psych: Dementia - Cont home Buspar Pulm: Current Smoker/Tobacco Abuse - Goal SpO2 >92%; wean FiO2 as tolerated O2 Sat (%): 92 % (11/21 1356) O2 Device: room air (11/21 1356) - Duoneb q 6 hr - 11/20 CXR: no acute process Nicotine Dependence Use per Day: 3 pipes per day- has been trying to cut back Patient is not ready to quit Quit Date: P Discussed pharmacotherapy. Offered Rx to be sent to pharmacy of choice. We discussed health risks and resources. Offered referral to [facility] Smoking Cessation clinic (AMB REFERRAL TO SMOKING CESSATION) Spent 3-5 minutes counseling on this topic Denies needing nicotine patch Cards: Essential HTN HLD CAD Temp: [98.4 F (36.9 C)-100.6 F (38.1 C)] 99 F (37.2 C) Pulse (Heart Rate): [54-82] 66 Resp Rate: [16-25] 20 BP: (118-176)/(55-89) 124/66 O2 Sat (%): [91 %-95 %] 92 % Weight: [61.6 kg (135 lb 12.9 oz)] 61.6 kg (135 lb 12.9 oz) - Goal SBP <140, MAP >65 - Home antihypertensives: - Amlodipine 5 mg - Lisinopril 20 mg - Current Meds: - 11/20: Amlodipine 5 mg every day - PRN labetalol and hydralazine - 11/20 TTE: P - 11/20 EKG: SSadia Rahman, QTc 453 - 11/20 Troponin: 12 - Statin Therapy: - 11/20 LDL: 48 - Cont home Atorvastatin 40 mg Renal/: No Current Issues - Fluid Balance: - Goal: euvolemia - Net: -573 mL/24H and admission - UOP: 1.1 L/24H - Voiding without difficulty - Daily Chem 10; - Electrolytes replaced per [facility] protocol Recent Labs 11/20/22 0516 11/21/22 0054 SODIUM 136 137 POTASSIUM 4.0 3.7 CHLORIDE 106 107 CO2 22 19* BUN 19 21 CREATSERUM 0.91 0.86 MAGNESIUM -- 2.1 PHOSPHORUS -- 3.7 GI/Nutrition: No Current Issues Recent Labs 11/20/22 0516 ALBUMIN 3.7 BILIDIRECT 0.2 BILITOTAL 1.5* ALKPHOS 81 ALT 12 AST 24 TP 6.3* - DIET HEART HEALTHY - 4 GM SODIUM AAT - [place] Swallow Screening Result: passed=cleared for oral intake - Consult nutrition for malnutrition screening - Body mass index is 19.77 kg/m . - Bowel regimen: - Last Bowel Movement: (prior to admission) - Senna - Miralax prn Endo: Acute Hyperglycemia 2/2 Critical Illness - Goal blood glucose 140-180 - Monitor for need for SSI Recent Labs 11/20/22 0516 11/20/22 0754 11/20/22 1722 11/20/22 2134 11/21/22 0054 GLUCOSE 110* 99 101* 136* 101* HGBA1C 5.6 -- -- -- -- ID: Acute Leukocytosis 2/2 Critical Illness Recent Labs 11/20/22 0516 11/21/22 0054 WBC 13.91* 14.25* - Temp (24hrs), Av.2 F (37.3 C), Min:98.4 F (36.9 C), Max:100.6 F (38.1 C) - PRN Tylenol for T>100.4F - Most recent and positive cultures: Date Collected Source Result Date Finalized 11/20 Urcul P - Antiinfectives: Start Date Antiinfective Coverage Course Length Stop Date Heme/Onc: Hypercoagulable state 2/2 Factor V deficiency Multiple DVT x2/PE Recent Labs 11/20/22 0516 11/20/22 0658 11/21/22 0054 11/21/22 1113 WBC 13.91* -- 14.25* -- RBC 4.79 -- 4.85 -- HGB 13.9 -- 14.6 -- HCT 42.3 -- 43.9 -- PLATELET 225 -- 208 -- PT 21.1* < > 14.7* 14.9* PTT 30.8 -- 26.4 -- INR 1.8* < > 1.1 1.2* < > = values in this interval not displayed. - Goal plt >100, INR <1.4, Hgb >7 - Vit K and 541 KCentra units given in ED - 11/20 Heme Consulted d/t second ICH and Coagulation Recs: - Hold in setting of IPH. - Once cleared would switch to Apixaban 2.5 mg BID - f/u with Hematology one month after discharge - 11/21: further thrombophilia workup but timing must be appropriate. 11/20: Antiphospholipid testing: P Musc: Acute on Chronic Deconditioning - PT/OT consulted and following Social/Dispo: - Code status: DNRCC-ARREST - Primary Emergency Contact: Jayjay Shook - HCPOA/LNOK: Ketan CHAVIRA - 11/20: Last updated Family. - P/P: Medications reconciled - Discharge planning per PCRM/SW. ICU Checklist: [ ] CAM-ICU [ ] ICU Diary daily [ ] SAT [ ] SBT [x ] DVT ppx; [x ] SCDs; [ ] Lovenox, [ ] heparin [ ] Stress ulcer prophylaxis: - Lines/Tubes: [place]: inserted CVC: inserted [place]: inserted Rectal tube: inserted Enteral access: inserted , [ ] gastric; [ ] post-pyloric Discussed with [facility] Attending, Dr. Dianna Perez the 50% of my time today was spent in counseling and/or coordination of care for this patient. I have spent a total of 25 minutes with this patient. N[facility]AN [facility] [place] #: [id number] (Beds [id number] and beds), [place] #: [id number] (Beds [id number] and [facility]) 11/21/22 2:14 PM Discharge Planning Patient Assessment Admission Assessment Patient Assessment Completed: Initial Anticipated discharge disposition: Assisted Facility Reason for Admission: R occipital IPH- hemmorrhagic stroke Is the patient able to participate in the assessment?: No Explanation of why patient is unable to participate: medical stability/stroke Information source: Review of Medical Record, Child(lyssa) Information Source Name/Contact: ketan [place] [phone] Demographics Verified and Updated: Yes Has the patient been admitted to any hospital in the last 30 days?: Transferred From Outside Hospital ([facility]) Advanced Care Planning Has the patient completed Advance Directives?: Completed, Not Available in Medical Record Copy of Advance Directives was requested?: Yes Advance Directives Requested From: Ketan Ro- states will bring in tohave scanned to chart Legal Next of Kin Does the patient have a Guardian?: No Spouse: Yes Name and Contact information: Judie Shook P [phone] cell [phone] Adult Child(lyssa), List All Adult Children: Yes Name and Contact information: Jayjay Shook son P [phone] Would you like to add additional adult children?: Yes Name and Contact information: Reynatamiko Ram, dtr P [phone] Referral to Social Work to Identify Legal Next of Kin?: No Reviewed and Updated in Demographics? : Yes Outpatient Providers Does patient have a primary care physician? : Yes When was the patient's last PCP visit?: > 30 days Does the patient follow any specialists?: Yes Reviewed and updated Care Team?: Yes Patient Care Team: Ender Rollins MD as PCP - General (Family Medicine) Sanjay Leong MD (Neurology) Environment/Caregivers Is the patient from a facility or senior care?: No Patient lives with: Spouse or Partner Living Environment: House How many steps does the patient have to navigate to enter or inside the home? : 2 Does the patient have a first floor set-up with bed and bathroom?: Yes Patient Caregiving Responsibilities: Self, Spouse Patient-identified caregiver/support network: Family Who does the patient identify as a teachable caregiver(s)?: Child(lyssa) - Independent Services Does the patient use a home health or hospice agency?: No Current with dialysis?: No Does the patient use any community programs or services?: Yes Select Program, Services, Resources : Food Pantries Does the patient have a Wait Staff or Head Neck Surgeon?: No Does patient use DME? : surendra segovia DME provider name and contact: YULISA Would you like to add additional DME providers?: No Does the patient use oxygen?: No Does patient use medical supplies? : none Anticipated Changes Related to Illness/Injury? : Yes Inability to care for self?: Yes Inability to care for dependents?: N/A Inability to return to school/work?: N/A Initial ADLs Prior to Arrival What is the patient's baseline physical functioning prior to this acute illness?: independent What is the patient's baseline cognitive functioning prior to this acute illness?: independent (Poor short term memory per son) Is the patient's baseline functioning changed by this acute illness? : Yes Changes observed : Physical, Cognitive Concerns with patient being able to care for themselves at home? : Yes Are there therapy or specialists consults?: Yes Select consult type: PT, OT, ELEMENTARY PRINCIPAL Does the patient's home require any home modifications for discharge? : No CM to recommend therapy or other consults? : Yes Select consult type: Social Work Medication Management Does the patient have prescription insurance coverage? : Yes Is the patient on Anticoagulation? : Yes (Warfarin INR goal 2-3) Provider or Clinic that manages Anticoagulation?: [facility] -lab draws. Followed by PCP [facility] [address] [place] [id number] - [address] [place], [place] [id number] Concrete Conveyor Operator Does the patient or technical services representative express financial concerns? : No Employed?: Retired Coping/Stress Concerns about patient s coping and stress?: No Concerns about patient s caregiver s coping and stress?: No Values and Beliefs Cultural or shinto practices that may impact discharge planning and/or medical care?: No Initial Discharge Planning Anticipated discharge disposition: Assisted Facility Transportation Available for Discharge: Agency Transport Anticipated DME: unknown at this time Anticipated Services at Discharge: Physical Therapy, Occupational Therapy, Outpatient follow up, Assisted, Speech Therapy Patient Assessment Completed: Initial Risk of Readmission: 5.8 Category Reference: High:16-100 Mod-High:10-16 Mod-Low: 5-10 Low: 0-5 Expected Discharge Date: 11/24/2022 Discharge Planning Summary Called spouse Judie @ home number. Received voice mail. Called son Jayjay to complete IA. Lives with in 1 story. Assisted with her care @ home. Son lives 3 minutes away and is able to asst if not working. Spouse is LNOK but states his mom would have difficulty understanding everything Son states he is listed as HCPOA but not on file. Son to bring in [facility] paperwork to be scanned to chart. Per son last time pt had stroke he went to [facility] for rehab. States it is close to his home and if pt needs SNF this would be first choice. Will await therapy evals and recs for dc disp and DME and discuss with pt/spouse. Case Management Plan 1.Introduced self to pt and family and discussed role of case packer and discharge planning process. 2.Anticipate pt to be discharged to TBD pending therapy evals and recs when medically appropriate. Possible SNF 3.Will coordinate follow up appointments for primary care and specialists as determined. 4.Clothespin Drier Operator to continue on going assessment of potential needs/services as pt progresses. Will assist with care coordination and dc planning as needed. Ashley Phillip RN, BSN Clinical Clothespin Drier Operator [phone] *Please note that I am a float case packer and that I may not cover the same service everyday. Please call the main case management office at for up to date coverage. Acute Care ELEMENTARY PRINCIPAL Speech/Language/Cognitive and Swallow Evaluations Diet recommendation: Recommended Method of Nutrition: PO Recommended Diet Grade: regular Recommended Liquid Consistency: liquid- thin (IDDSI 0) Recommended Medication Administration (as appropriate per MD): Per patient preference Swallow Strategies: Bolus volume change, Liquid wash Type of Cues/Supervision: intermittent supervision Assistance: nurse/aide, family Best mode of Communication: spoken language (regular speech) Discharge Recommendations: Based on the below outcome measures/assessment score(s) and ELEMENTARY PRINCIPAL clinical judgment, discharge destination recommendation is: Deferred to PT/OT recomendations related to mobility Barriers to discharge home: Cognitive impairments that impact safety and independence Supporting factors for discharge setting: Impaired cognitive skills limiting safety/insight, Impaired cognitive skills limiting independence Acute ELEMENTARY PRINCIPAL Outcomes Tracking Communicate basic wants and needs?: yes Demo insight/appreciation of deficits?: unable to determine Complete basic problem solving?: yes Current therapy frequency recommendation in acute: Speech/Lang/Cog Therapy Frequency: no therapy warranted Swallow Therapy Frequency: no therapy warranted Referrals: Speech Language Pathologist (at next level of care) Clinical Swallow Impression: Juli Shook presents with presumed functional oropharyngeal swallow in the setting of right occipital IPH with IVH. Pt demonstrated prolonged mastication and adequate bolus control with no anterior spillage or oral residue. Pt benefits from additional time for mastication. There were no overt s/s of aspiration noted. Recommend continue regular diet and thin liquids, meds per pt preference, and intermittent supervision (small bites/sips, liquid wash). No further ELEMENTARY PRINCIPAL services are indicated at this time. Clinical Speech/Language/Cognitive Impression: Juli Shook presents with presumed baseline cognitive deficits though suspect worsening secondary to right occipital IPH with IVH. Areas of deficits include short-term memory, reasoning, and insight. Pt able to produce clear, coherent sentences and indicate wants/needs. Pt able to follow commands. No ELEMENTARY PRINCIPAL services recommended at this time given pt with hx of dementia and requires no acute needs given pt able to express wants/needs. Recommend ELEMENTARY PRINCIPAL services at next level of care to address the above deficits. Pt would benefit from supervision and assistance with higher level cognitive tasks. Patient Instruction/Education this session: Pt educated on results/recommendations. Pt verbalized understanding. Plan for next session: No further ELEMENTARY PRINCIPAL services warranted. Subjective: Pt lying in bed, asleep, upon ELEMENTARY PRINCIPAL arrival. Pt easily aroused via verbal cues and cooperative. Pt reports feeling off today but unable to provide reason. Pt denies any changes to his swallowing or speech/cognition. Pt states he consumes regular foods at home and denies difficulty swallowing. Pt passed Fritter swallow screen. Per RN, pt declined medications this am reporting he wasn't able to, therefore a formal swallow evaluation completed. Pain: General Pain Documentation (Adult, OB, Peds) Presence of Pain: denies pain/discomfort DVPRS (Defense and Veterans Pain Rating Scale) DVPRS: Rest: 0- no pain DVPRS: Activity: 0- no pain Patient History Comments: Juli Shook is a 77 y.o. male who presents to the hospital on 11/20 as a Hemorrhagic stroke alert from [facility] for AMS. Neuro: R occipital IPH with IVH (ICH score 1) 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 Thin SDH, trace SAH. 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 Right thyroid lobe heterogeneous lesion Pt w/ history of HTN, factor V leiden on warfarin, dementia, HLD, CAD, DVT x2 s/p IVC filter, previous hx of frontal IPH (2019). Prior Level of Function: Residence: House Lives With: spouse Prior ELEMENTARY PRINCIPAL history: None per chart review Current Method of Nutrition: Route of Nutrition: PO Diet Grade: Regular Solids (IDDSI 7) Liquid Consistency: Thin (IDDSI 0) Respiratory Status: O2 Device: room air O2 Sat (%): 93 % Resp Rate: 20 Clinical Swallow Evaluation Clinical Swallow Exam limited by cognition: No Objective Evaluation: Oral Motor: Cranial Nerve Exam CN V (Trigeminal) strong equal bilateral strength of masseter and temporal muscles CN VII (Facial) strong bilateral movement of upper and lower face CN IX (Glossopharyngeal) hoarseness, soft palate and pharynx rise symmetrically when patient says 'ahhh' CN X (Vagus) hoarseness CN XI (Accessory) raises head off pillow without difficulty CN XII (Hypoglossal) clearly articulated speech Vocal Quality: hoarse GRBAS: A perceptual rating scale for voice parameters Rating scale of 0 to 3 0 = no impairment 1 = minimal to mild impairment 2 = moderate impairment 3 = severe impairment Subjective Voice Evaluation Grade of dysphonia (G): 1 Roughness (R): 1 Breathiness (B): 0 Asthenia (A): 0 Strain (S): 0 Positioning: High Sultana's (60-90 degrees) Anticipatory Phase: Functional Foods and Liquids Trialed: Modality: Amount: Thin Straw, Consecutive Drinks, ELEMENTARY PRINCIPAL-fed x8 Dysphagia- pureed (IDDSI 4) Teaspoon, ELEMENTARY PRINCIPAL-fed x3 Regular solid ELEMENTARY PRINCIPAL-fed x3 Oral Phase Function Comments Oral Mucosa Functional Dentition Partial dentures (Top set dentures, missing some bottom dentition) Labial Closure Functional Mastication Functional Oral Stasis Absent Cough before the swallow Absent Oral Phase Summary: Pt presents with extended/prolonged mastication of regular solids, though adequate bolus control and transit. No oral residue noted after liquid wash. Pt benefits from additional time. Pharyngeal Phase Function Comments Perceived Swallow Present Cough Response No Throat Clear No Subjective Complaint of Residue Absent Pharyngeal Phase Summary: Pt presents with presumed functional pharyngeal phase with no overt s/s of aspiration. Clear vocal quality remained. [place] Swallow Screen: (administered by: RICHARDSON) [place] Swallow Screening Screening Exclusion Criteria: none, continue with [place] Swallow Screening Cognitive Screen: Orientation: able to give name, able to name place, able to name current year Cognitive Screen: Command Following: able to open mouth, able to stick out tongue, able to smile Oral Motor Function : able to close lips, able to move tongue to corners of lips, able to stick out tongue past lips, able to pucker lips and smile 3 oz. Water Swallow Challenge : no deficit-passed [place] Swallow Screening Result: passed=cleared for oral intake Voice and Swallow Outcomes: Functional Oral Intake Scale: Level 7 - Total oral intake with no restrictions Speech/Language/Cognitive Evaluation EXPRESSIVE LANGUAGE: Functional RECEPTIVE LANGUAGE: Functional Task: Identify Functional Objects Follow 1-Step Commands Follow 2+ Step Commands Answers Basic Y/N Questions Answers Complex Y/N Questions Conversational Comprehension SOCIAL INTERACTION/PRAGMATICS: Functional COGNITION: Impaired Task: Arousal/Alertness Delayed responses to stimuli Orientation Level Oriented to person, Oriented to place Safety Judgment Decreased awareness of need for assistance Awareness of Errors Assistance required to identify errors made Deficits Decreased awareness of deficits Attention Span Appears intact Memory Decreased short term memory Problem Solving Assistance required to identify errors made Cognition Comments Pt with hx of dementia and prior frontal IPH. Unsure of patient's baseline cognition as family not present. MOTOR SPEECH TASKS: Functional VOCAL PARAMETERS: Functional Task: Vocal Quality hoarse Subjective Voice Evaluation Grade of dysphonia (G): 1 Roughness (R): 1 Breathiness (B): 0 Asthenia (A): 0 Strain (S): 0 ELEMENTARY PRINCIPAL Outcomes: ELEMENTARY PRINCIPAL Outcomes / Standardized Measures Score The Orientation Log (O-Log) Orientation Log City: correct spontaneously or upon first free recall attempt Kind of Place: correct spontaneously or upon first free recall attempt Name of Hospital: correct upon multiple choice or phonemic cueing Month: correct spontaneously or upon first free recall attempt Date: correct upon logical cueing Year: correct spontaneously or upon first free recall attempt Day of Week: correct upon logical cueing Clock Time: correct spontaneously or upon first free recall attempt Etiology / Event: correct upon logical cueing Pathology Deficits: correct upon multiple choice or phonemic cueing Total Score: 23 Goals 1. Pt will demonstrate understanding of ELEMENTARY PRINCIPAL's role and results/recommendations from today's evaluation. -Goal met Speech Language Pathologist: NOLBERTO Sena Time In: 1049 Time Out: 1114 Total Visit Time: 25 minutes Total Treatment Time (skilled, billable minutes): 25 minutes Patient location at end of session: bed with head of bed elevated Alarms on at end of session: bed alarm Needs in reach. Upon discontinuation of Acute Care Speech Therapy Services or patient discharge from the hospital this note represents the current Speech Therapy Discharge Summary HEMATOLOGY BRIEF FOLLOW UP NOTE In summary, Juli Shook is a 77 y.o. man with a past medical history of HTN, heterozygous factor V leiden on warfarin, dementia, HLD, CAD, multiple VTEs s/p IVC filter, previous hx of frontal IPH (2019) who presented as a hemorrhagic stroke from [facility] for further management. 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 Hematology was consulted for recommendations on anticoagulation with hx of FVL and thrombosis in the setting of acute IPH. Mr. Shook has a hx of multiple clotting events, heterozygous FVL and strong family history of FVL with clotting events. He began to have clotting events dating back 40 years and was on chronic warfarin therapy until 2016. At that time, he had a spontaneous intracranial hemorrhage, warfarin was discontinued and an IVC filter was placed. In 2019, he was found to have a nontraumatic subcortical hemorrhage of left cerebral hemisphere. About 10 months later, he developed a DVT and was restarted on warfarin. Of note, records suggest that he was not initiated on DOAC in the past due to high cost and limited ability to reverse bleeding. Currently, he presented with his third intracranial bleeding episode while on aspirin alone. 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 He has both significant clotting and bleeding risks. We recommend further thrombophilia workup but timing must be appropriate. We will send antiphospholipid testing now. We recommend follow up with [facility] for further workup outpatient. We recommend resuming anticoagulation when deemed safe from Neurosurgical perspective. We recommend Eliquis at prophylactic dosing 2.5 mg po BID to best balance his thrombosis/bleeding risk. Eliquis has a better bleeding profile than warfarin. Reversal agent for DOACs is not readily available but half life is must shorter at ~12hrs. However, if he would have triple positive APLS labs, then warfarin would be a better option. It appears that they may start prophylactic heparin on post bleed day 2 (11/21). Recommendations: -Anti-cardionlipin IgG/IgM (ordered) -Beta2 glycoprotein (ordered) -Lupus anticoagulant (ordered) -Consider BLE dopplers and abd imaging to assess clot burden and IVC filter -Recommend apixiban 2.5 mg po BID when safe from neurosurgical perspective (unless triple positive APLS) -Follow up with [facility] ([phone]), we will request appointment in 1 month. If you have any questions or need any further information, please feel free to contact the Hematology Consult Service. Our pager number is found under the heading IM Consult Serv Hematology on [email or web address]. The care of this patient was discussed with attending, Dr. Mcgraw. This note reflects their recommendations, including plan of care and all medications ordered. NOLAN Pickard Speech Language Pathology Attempt Note 11/20/2022 ELEMENTARY PRINCIPAL Therapy Completed: Attempted Attempted Reason: Patient is unavailable due to test/procedure NOLBERTO Sanford Time In: 1417 Time Out: 1417 Total Visit Time: 0 minutes Total Treatment Time (skilled, billable minutes): 0 minutes Neurovascular Stroke Service Intracerebral Hemorrhage Note IDENTIFYING INFORMATION Juli Shook MR# [id number] 11/20/2022 HISTORY OF PRESENT ILLNESS Juli Shook is a 77 y.o. 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 On 11/19 pt complained of severe headache and wanted to throw up. Patient was taken to [facility]. CTH showed 3cm Rt Occipital hemorrhage with extension into the Rt lateral ventricle and old L frontal/cerebellar hemispheric strokes. WBC 15.6, INR 2.9. Vitamin K given. Patient given 2 doses of Labetalol for BP in liz322's. On arrival to [facility], SBP in 180's. Glucose 111. NIHSS 0. INR 1.8 here, given Kcentra. HCT showed stable Rt Occipital hemorrhage with extension into the Rt lateral ventricle. 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 Right thyroid lobe heterogeneous lesion. He was started on Nicardipine. INTERVAL HISTORY 11/20: repeat CTH pending, MRI brain P PHYSICAL EXAM Gen: awake, alert, NAD HEENT: normocephalic, no scalp lesions or tenderness, PERRLA, EOMI Neck: trachea midline, no JVD CV: +S1S2, RRR, no m/r/g Lungs: LCTA bilaterally with equal chest rise Abd: soft, nontender, nondistended, +BS x4 quadrants Extrem: Warm and well perfused, no cyanosis, clubbing, edema, 2+ pulses bilaterally Neuro: Oriented x4, ROWLEY x4, sensation intact and equal bilaterally. CN II - All visual young intact CN II/III - PERRLA CN III/IV/ - EOMI CN V - Mild L facial droop CN VII - Facial movement intact and symmetrical bilaterally CN VIII - Hearing intact CN X - Cough present CN XI - muscular movement of shoulders and sternocleidomastoid muscles intact and equal bilaterally CN XII - midline protrusion of tongue MOTOR EXAMINATION: no drift noted NIHSS Provider NIH Stroke Scale NIH Interval (Provider): admission NIH Level of Conciousness (Provider): 0 NIH LOC Questions (Provider): 0 NIH LOC Commands (Provider): 0 NIH Best Gaze (Provider): 0 NIH Visual (Provider): 0 NIH Facial Palsy (Provider): 0 NIH Left Arm Motor (Provider): 0 NIH Right Arm Motor (Provider): 0 NIH Left Leg Motor (Provider): 0 NIH Right Leg Motor (Provider): 0 NIH Limb Ataxia (Provider): 0 NIH Sensory (Provider): 0 NIH Best Language (Provider): 0 NIH Dysarthria (Provider): 0 NIH Extinction and Inattention (Provider): 0 NIH Total Score (Provider): 0 Intracerebral Hemorrhage Volume Intracerebral Hemorrhage Score Score 30 Day Mortality following ICH 0 0% Mortality 1 13% Mortality 2 26% Mortality 3 72% Mortality 4 97% Mortality 5 100% Mortality ASSESSMENT AND PLAN Neuro: R occipital IPH with IVH (ICH score 1) 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 Thin SDH, trace SAH. 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 Right thyroid lobe heterogeneous lesion MRI brain: P MRA brain: P ECHO P LDL 48, A1c 5.6 Recommendations: -Keep SBP <140 mmHg -INR < 1.4, plt > 100k, hgb > 7 -Imaging pending -Hold AC/antiplatelets -Neurosurgery/heme following Hemorrhagic Stroke Core Measures -NHISS on admission 0 -Patient has been started on Mechanical (SCD's) and Pharmacological (SQ heparin) DVT prophylaxis will be started after stable HCT. -Antiplatelet therapy is not indicated. -Anticoagulation therapy not indicated in hemorrhagic stroke -Patients LDL 48 and HgbA1c 5.6 were checked and the patient will be discharged on a lipid lowering Statin medication if LDL is greater than 100. -Dysphagia screening ordered, and will be completed prior to patient receiving oral intake. -Stroke education booklet has been provided both written and verbal education to the patient and family regarding hemorrhagic strokes. We have reviewed the patient's personal modifiable risk factors including: HTN as well as education on reducing these risk factors. -Patient is being assessed for Rehab by PT/OT/Speech and PM&R if indicated. Johnnie Bhandari APRN-IRONWORKER HELPER [employer]OP 11/20/2022 11:55 AM VITAL SIGNS Pulse (Heart Rate): [54-83] 54 Resp Rate: [14-23] 18 BP: (107-192)/(50-75) 135/64 O2 Sat (%): [91 %-94 %] 93 % Weight: [61.6 kg (135 lb 12.9 oz)] 61.6 kg (135 lb 12.9 oz) IMAGING/DIAGNOSTIC STUDIES CT HEAD WITHOUT CONTRAST CT ANGIO BRAIN/NECK Final Result IMPRESSION: 1. No spot sign, large vessel arterial occlusion, dissection or aneurysm. 2. 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 Recommend further evaluation with MRA brain. 3. Right thyroid lobe heterogeneous lesion. Recommend correlation with prior imaging if available, or may consider nonemergent thyroid ultrasound. I personally viewed and interpreted these images and I have reviewed and approved this report. STROKE HEAD-STROKE ALERT ONLY Final Result IMPRESSION: 1. Right occipital intraparenchymal hemorrhage with intraventricular extension. Thin subdural hemorrhage and trace subarachnoid hemorrhage. 2. 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 A Critical finding has been discussed with Chris Contreras MD with a read back to Imelda Milton MD on 11/20/2022 5:22 AM . I personally viewed and interpreted these images and I have reviewed and approved this report. CARDIOGRAM (Results Pending) MRI BRAIN WITH AND WITHOUT CONTRAST (Results Pending) MRI ARTERIOGRAM BRAIN WITHOUT CONTRAST (Results Pending) XR CHEST PORTABLE (Results Pending) MEDICATIONS amLODIPine 5 mg Oral Daily Atorvastatin 40 mg Oral Daily busPIRone 5 mg Oral Daily Ipratropium-albuterol 3 mL Nebulization Q6HNS Senna 8.6 mg Oral Daily Or Senna 8.6 mg Per NG tube Daily 11/20/2022 9:47 AM NEUROICU ATTENDING CRITICAL CARE NOTE: I have examined Juli Shook, reviewed the events of the previous 24 hours, and reviewed, confirmed and amended the resident's data, history and physical exam as needed. Multidisciplinary rounds occurred at the bedside. The case has been discussed with the NCC and NSGY team. ICU Day 0 Active Medications: Atorvastatin 40 mg Oral Daily busPIRone 5 mg Oral Daily Senna 8.6 mg Oral Daily Or Senna 8.6 mg Per NG tube Daily niCARdipine (CARDENE) Infusion Stopped (11/20/22 0757) Sodium chloride 0.9% Acetaminophen OR Acetaminophen OR Acetaminophen OR Acetaminophen, hydrALAZINE OR hydrALAZINE, Labetalol OR Labetalol, Ondansetron 4mg/2ml OR Ondansetron, Polyethylene glycol OR Polyethylene glycol, Sodium chloride (PF), Sodium chloride 0.9% Active Problems: Patient Active Problem List Diagnosis Factor V deficiency Intracranial hemorrhage I note the following in my assessment and will implement this plan of coordinated critical care management as follows: 24-HR EVENTS: 11/20: K centera 500 unit overnight latest INR 1.4. Anh is off Data & Diagnostic Studies: Neuroimaging: LAST IMAGES: Most Recent CT 1. No spot sign, large vessel arterial occlusion, dissection or aneurysm. 2. 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 Recommend further evaluation with MRA brain. 3. Right thyroid lobe heterogeneous lesion. Recommend correlation with prior imaging if available, or may consider nonemergent thyroid ultrasound. Most Recent MRI Pending Lab Results Component Value Date CO2 22 11/20/2022 O2 Sat (%): [91 %-94 %] 92 % O2 Device: room air Other Imaging/Data Small left facial and and left upper quadratat Clinical Exam: Drips (current): Pulse (Heart Rate): [58-83] 58 Resp Rate: [14-23] 16 BP: (107-192)/(50-75) 127/56 O2 Sat (%): [91 %-94 %] 92 % Weight: [61.6 kg (135 lb 12.9 oz)] 61.6 kg (135 lb 12.9 oz) Systemic Exam: GENERAL: Alert, no acute distress HEENT: normocephalic, no scalp wounds nor lesions CARDIO: +S1S2, RRR, no m/r/g, no edema PULM: clear auscultation bilaterally, equal chest rise; ABDOMINAL: soft, nontender, nondistended, active bowel sounds Neurologic Exam: [place] Coma Scale: E: Opens spontaneously:4 V: Oriented (+5) M: Obeys commands (+6) Total: 15 Mental Status: alert Orientation: oriented to person, place and time/date 0=No aphasia, normal Cranial Nerves: left upper quadrant quadrantanopia Pupils: OSCAR Extraocular movements: intact Corneal reflex: present bilaterally Face: mild left nasolabial fold flattening Cough & gag reflex: present Motor exam: grossly normal Neck Ext Neck Flex Delt Bicep Tricep WE WF Training Consultant HE HF KE KF DF PF EHL R L Sensation: Extremity sensation intact throughout. NEUROLOGIC: Data: Neuromonitoring (24-h): EEG: n/a TCD: n/a Assessment: Plan: NIHSS as per stroke protocol -SBP<140 -Frequent Neurochecks q1h -Hold ASA and AC for now -Hold on Chemical DVT PPx -If exam worsening please obtain stat CTH head -MRI with and w.o cont -TTE Lab Results Component Value Date HGBA1C 5.6 11/20/2022 Lab Results Component Value Date LDLCALC 48 11/20/2022 -Pt/OT -ELEMENTARY PRINCIPAL -Crestor 20 - -tight glycemic control PAIN, SEDATION: Plan: Analgesia: tylenol Sedation: avoid Mobilization: OOB RESPIRATORY: Data: On mechanical ventilation: no Vent setting: @NCCVENTSETTINGS@ Secretions: - Assessment: current smoker 1 Plan: Du-nebs every 6h CPT Spo2>92 ABG prn CXR now CARDIOVASCULAR: Data: TTE: Pending EKG: NSR Hs-Troponin: normal Adv Hemodynamic Monitoring (24-h): Assessment: Essential HTN Plan: SBP<140 Amlodipine 5 mg daily Lisinopril 20 mg daily Labetalol and hydralazine prn Anh GASTROINTESTINAL/NUTRITION: Data: Recent Labs 11/20/22 0516 ALBUMIN 3.7 BILIDIRECT 0.2 BILITOTAL 1.5* ALKPHOS 81 ALT 12 AST 24 TP 6.3* - DIET NPO with meds AAT - Assessment: No Current Issues - Plan: GI Prophylaxis: no BMI: Body mass index is 19.77 kg/m . - Consult nutrition for malnutrition screening Diet: NPO Start po diet Bowel regimen: - - Senna, miralax RENAL: Recent Labs 11/20/22 0516 SODIUM 136 POTASSIUM 4.0 CHLORIDE 106 CO2 22 BUN 19 CREATSERUM 0.91 No intake/output data recorded. UOP ml/kg/hr Plan: Urine lytes and osm, Serum lytes and osm, and Urine spec grav Monitor Sodium and BUN/Creatinine Strict Input AND Output Nurse Driven [place] Protocol FLUIDS / ELECTROLYTES: IV fluid: NS@ 75 cc.hr Lab Results Component Value Date SODIUM 136 11/20/2022 POTASSIUM 4.0 11/20/2022 CHLORIDE 106 11/20/2022 Plan: ICU electrolytes replacement Goal Serum K >3.5-4, PO4 >3, Mg >2 AND Ionized CA >1.00 INFECTIOUS DISEASE: Data: Recent Labs 11/20/22 0516 WBC 13.91* - No data recorded. UA: bact trace and trace leuk Micro: Most recent and positive cultures: Assessment: Plan: PRN Tylenol for T>100.4F Follow-Up Cultures and UA Antibiotics: Start Date Antiinfective Coverage Course Length Stop Date Monitor fever curve and obtain Solomon Cx and CXR if febrile HEMATOLOGIC: Data: Recent Labs 11/20/22 0516 11/20/22 0658 11/20/22 0813 HGB 13.9 -- -- HCT 42.3 -- -- PLATELET 225 -- -- PT 21.1* 17.6* 17.5* PTT 30.8 -- -- INR 1.8* 1.5* 1.4* Last Screening LE U/S : Assessment: Factor V liden def Hx of DVT Hx of previous ICH Plan: DVT Prophylaxis: SCD Hematology consult Monitor CBC and Coagulation Profile Target Hgb 7-9 G/dL ENDOCRINE: Data: Recent Labs 11/20/22 0503 11/20/22 0516 11/20/22 0754 GLUCOSE 111* 110* 99 HGBA1C -- 5.6 -- Insulin TDD: 0 Assessment: No Current Issues Plan: - Goal blood glucose 140-180 - Insulin SSI: Q6H ACTIVE LINES/DRAINS -PIVs - MED REVIEW: Atorvastatin 40 mg Oral Daily busPIRone 5 mg Oral Daily Senna 8.6 mg Oral Daily Or Senna 8.6 mg Per NG tube Daily DISPOSITION: ICU CODE STATUS: Full Code The patient remains in critical condition requiring intensive care This patient is critically ill, unstable and is at high risk of imminent or life threatening deterioration due to ICH, HTN requiring , close neurologic and hemodynamic monitoring. I personally spent 32 minutes in the intensive care unit providing critical care services to the patient today independent of procedures, teaching and other care providers. Management of the ICH, HTN, Facto v ledidne deficiency was performed. My time managing this critically ill patient included review of interval history, laboratories, radiology and consultation reports; performing a physical examination; discussing the patient with the multi-disciplinary team and managing life sustaining therapies to prevent imminent clinical deterioration. Ulises Garcia MD, Division of Neurocritical Care 11/20/2022 9:47 AM NUTRITION ASSESSMENT Nutrition Recommendations and Plan of Care: 1. Advance diet as soon as appropriate. Encourage PO intake. 2. Will send chocolate Ensure Plus High Protein TID (350 kcal, 20 g PRO each) once diet is advanced. 3. Monitor PO intake, bowel function, skin integrity, weight change, lab values. 4. RD to follow. Juli Shook is a 77 y.o. male with h/o HTN, factor V leiden on warfarin, dementia, HLD, CAD, DVT x2 s/p IVC filter, Previous hx of frontal IPH, who presents with Right occipital IPH. Transferred to [facility] for further management after receiving vitamin K. Past History Past medical, surgical, family, and social histories have reviewed and are located elsewhere in the medical record. Nutrition History Pt seen for nutrition screen. Passed [place] swallow screen per RN. Remains NPO at this time. Pt reports usually eating 1 meal per day at home and has snacks such as cookies, etc. He used to drink oral nutritional supplements but has not had any recently although still having several bottles at home. Agreeable to receive chocolate Ensure once diet is advanced. NKFA. Diet Order Current Diet Orders Procedures DIET NPO with meds Standing Status: Standing Number of Occurrences: 1 Order Specific Question: NPO Meds: Answer: with meds Ht: 5' 9.5 /176.5 cm Wt: 135#/61.6 kg BMI: 19.8 kg/(m^2) IBW: 163#/74.1 kg %IBW: 83 Weight history: current wt confirmed with patient. Noted wt loss of 7 lb (5%) in 3 months, which is insignificant. Overall wt loss 12 lb (8%) in 9 months, which is also insignificant. Per Care Everywhere: 11/11/22: 64.41 kg (141.7 lb) 08/21/22: 64.4 kg (142 lb) 07/22/22: 63.2 kg (139 lb) 04/30/22: 65.03 kg (143.1 lb) 02/04/22: 66.9 kg (147 lb 8 oz) 01/21/22: 66.4 kg (146 lb) 08/23/21: 146 lb Meds reviewed: Scheduled: amLODIPine 5 mg Oral Daily Atorvastatin 40 mg Oral Daily busPIRone 5 mg Oral Daily Ipratropium-albuterol 3 mL Nebulization Q6HNS Senna 8.6 mg Oral Daily Or Senna 8.6 mg Per NG tube Daily Continuous: niCARdipine (CARDENE) Infusion Stopped (11/20/22 0757) Sodium chloride 0.9% 75 mL/hr at 11/20/22 1200 Labs reviewed: Na/K+/Phos/Mg/Ca: 136/4.0/--/--/-- (11/20 515) Bun/Creat/Cl/CO2/Glucose: 19/0.91/106/22/99 (11/20 515-11/20 075) WBC/Hgb/Hct/Plts: 13.91/13.9/42.3/225 (11/20 515) GI: WDL Last BM PROCESSING ENGINEER Skin: Karlos Score: 17 Edema - none Nutrition Focused Physical Exam: Subcutaneous Fat Loss: Orbital: severe Buccal: severe Triceps: severe Fat Overlying Ribs: deferred Muscle Wasting: Temples (temporalis): severe Clavicles (pectoralis & deltoids): severe Shoulders (deltoids): severe Interosseous: severe Scapula (latissimus dorsi, trapezious, deltoids): severe Thigh (quadriceps): moderate Calf (gastrocenmius): moderate Fluid Evaluation: WNL Estimated Nutrition Needs: Dosing wt: 135#/61.6 kg - CBW EEN: 6146-1238 (30-35 kcal/kg CBW) EPN: 86-111 (1.4-1.8 g/kg CBW) Malnutrition Diagnosis: Malnutrition Severity: Severe Protein-Calorie Malnutrition (POA) Etiology of Malnutrition: Chronic Illness as evidenced by clinical characteristics: Decrease in Energy: Less than 75% energy intake compared to estimated energy needs for greater than or equal to 1 month Loss of Subcutaneous Fat: Severe Loss of Muscle Mass: Severe Indications of Malnutrition: Decrease in Energy, Body Fat Depletion, Muscle Mass Depletion based on the AND/ASPEN Malnutrition Criteria [address], LD, CNSC Pager #[phone] Department of Pharmacy ED Anticoagulant Reversal Note Patient: Juli Shook Room/Bed: E036/E036 ED pharmacist at bedside and involved with anticoagulation therapy reversal. Anticoagulation Therapy Anticoagulant: warfarin Last dose: unknown. Initial INR at sending facility was 2.9 (1.8 on arrival) Anticoagulant Indication: DVT, PE, Factor 5 Leiden deficiency Indication for Reversal: IPH with IVH Labs Coag: Lab Results Component Value Date PT 21.1 (H) 11/20/2022 INR 1.8 (H) 11/20/2022 PTT 30.8 11/20/2022 Chemistry: Lab Results Component Value Date CREATSERUM 0.91 11/20/2022 BUN 19 11/20/2022 CBC: Lab Results Component Value Date HGB 13.9 11/20/2022 HCT 42.3 11/20/2022 PLATELET 225 11/20/2022 Vitals: Vitals: 11/20/22 0600 BP: 124/57 Pulse: 69 Resp: 22 Recommendations: - administer 541 units of 4 factor PCC (not weight-based given hypercoagulable state), follow up with PT/INR Case and recommendations discussed with neurovascular resident and ED attending Name: Chau Ambrosio RPH Phone: [phone] Date/Time: 11/20/2022 7:00 AM Time Spent: 20 minutes documented in this encounter [facility] 11-29-2022 Note Formatting of this n ote might be different from the original. Problem: Patient Care Overview Goal: Plan of Care Review Outcome: Ongoing Goal: Individualization & Mutuality Outcome: Ongoing Problem: Stroke (Hemorrhagic) (Adult) Goal: Signs and Symptoms of Listed Potential Problems Will be Absent, Minimized or Managed (Stroke) Description: Signs and symptoms of listed potential problems will be absent, minimized or managed by discharge/transition of care (reference Stroke (Hemorrhagic) (Adult) CPG). Outcome: Ongoing [facility] 11-29-2022 Hospital course Narrative Discharge Summary Name: Juli Shook Age: 77 y.o. Birthday: 1945 Admit Date: 11/20/2022 5:06 AM Discharge Date: 11/29/2022 Discharge Unit: [id number] Admission Information Admitting Physician: Ulises Garcia MD Discharge Information Discharge Physician: Dr Pancho Franks Problem List Active Hospital Problems Diagnosis Electrolyte disorder (K, Cl, or Na) Factor V deficiency Intracranial hemorrhage Resolved Hospital Problems No resolved problems to display. Brief Summary of Hospital Course for Discharge Summary: Dear Providers, We recently had the pleasure of taking care of Juli Shook at [facility]. As you well know Juli Shook is a Rt handed 77 y.o. male with a PMHx of HTN, HLD, DVT, PE, Factor 5 Leiden deficiency (on warfarin) , Lt frontal hemorrhage () presenting as a Hemorrhagic stroke alert from [facility] for AMS. On 11/19 pt complained of severe headache and wanted to throw up. Patient was taken to [facility]. CTH showed 3cm Rt Occipital hemorrhage with extension into the Rt lateral ventricle and old L frontal/cerebellar hemispheric strokes. WBC 15.6, INR 2.9. Vitamin K given. Patient given 2 doses of Labetalol for BP in the 150s. On arrival to [facility], SBP in 180s. Glucose 111. NIHSS 0. INR 1.8 here given Kcentra. Pupils equal round and reactive to light 4-->2. HCT showed stable Rt Rt Occipital hemorrhage with extension into the Rt lateral ventricle. . 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 MRI/MRA were negative for underlying vascular lesion. Brief summary of Imaging: CTH:Stable Rt occipital hemorrhage with extension into the Rt lateral ventricle. Thin SDH, trace SAH. 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 Right thyroid lobe heterogeneous lesion MRI brain: Rt IPH w/ IVH. Scattered SAH, may be d/t chronic hemosiderin standing. Area of encephalomalacia in left frontal lobe. 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 MRA brain: No AVM or dAVF Repeat CTH 11/22 Stable ECHO TTE EF 65-70%, no significant valvular disease LDL 48, A1c 5.6 Diagnosis : R occipital IPH with IVH (ICH score 1), SDH & SAH. 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 Right thyroid lobe heterogeneous lesion: Incidental seen on CTA brain/neck -OP follow up with PCP for non-emergent thyroid ultrasound Acute Urinary retention: Had high residuals on 11/27, nurses had difficulty with straight catheterization -Inserted ford -Doxazosin 1 mg daily -Will need urology follow up outpatient if unsuccessfull at voiding trials Follow up appointments or imaging. -MRI brain with and without contrast in 8-12 weeks -Neurovascular as scheduled -PCP in 1-2 weeks -Hematology in 1 month -Urology in 1-2 weeks Physical exam on the day of discharge: Neuro: Oriented x3, [place] x4, sensation intact and equal bilaterally. CN II - All visual young intact CN II/III - PERRL CN III/IV/ - EOMI CN V - Face symmetric CN VII - Facial movement intact and symmetrical bilaterally CN VIII - [place] CN X - Cough present CN XI - muscular movement of shoulders and sternocleidomastoid muscles intact and equal bilaterally CN XII - midline protrusion of tongue MOTOR EXAMINATION: BLE weakness NIH on admission Provider NIH Stroke Scale NIH Interval (Provider): daily NIH Level of Conciousness (Provider): 0 NIH LOC Questions (Provider): 1 NIH LOC Commands (Provider): 0 NIH Best Gaze (Provider): 0 NIH Visual (Provider): 0 NIH Facial Palsy (Provider): 0 NIH Left Arm Motor (Provider): 0 NIH Right Arm Motor (Provider): 0 NIH Left Leg Motor (Provider): 0 NIH Right Leg Motor (Provider): 0 NIH Limb Ataxia (Provider): 0 NIH Sensory (Provider): 0 NIH Best Language (Provider): 0 NIH Dysarthria (Provider): 0 NIH Extinction and Inattention (Provider): 0 NIH Total Score (Provider): 1 MRS on admission: 0 MRS on discharge : 2 Trini Velasco APRN-MENDEZ' Summary of last selected lab results and date obtained: Lab Results Component Value Date WBC 10.80 (H) 11/29/2022 HGB 12.6 (L) 11/29/2022 HCT 37.5 (L) 11/29/2022 PLATELET 309 11/29/2022 MCV 85.6 11/29/2022 Lab Results Component Value Date SODIUM 137 11/29/2022 POTASSIUM 3.5 11/29/2022 CHLORIDE 107 11/29/2022 CO2 23 11/29/2022 BUN 30 (H) 11/29/2022 CREATSERUM 0.65 (L) 11/29/2022 GLUCOSE 97 11/29/2022 Lab Results Component Value Date ALT 12 11/20/2022 AST 24 11/20/2022 ALKPHOS 81 11/20/2022 BILITOTAL 1.5 (H) 11/20/2022 BILIDIRECT 0.2 11/20/2022 Brief Summary of Labs for Discharge Summary: Discharge Orders MRI BRAIN WITH AND WITHOUT CONTRAST AMB REFERRAL TO HEMATOLOGY AMB REFERRAL TO NEUROLOGY AMB REFERRAL TO RESIDENTIAL FACILITY AMB REFERRAL TO UROLOGY Current Outpatient Meds: Medication List for when you go home START taking these medications aspirin 81 MG CHEW chewable tablet Chew 1 tablet daily. carveDILOL 6.25 MG TABS Take 1 tablet by mouth every 12 hours. Commonly known as: COREG doxazosin 1 MG TABS Take 1 tablet by mouth at bedtime. Commonly known as: CARDURA Eliquis 2.5 MG TABS Take 1 tablet by mouth every 12 hours. For diagnoses: Factor V Leiden mutation, Dural venous sinus thrombosis Generic drug: apixaban Start taking on: November 30, 2022 nicotine 14 MG/24HR PT24 patch Place 1 patch on skin every 24 hours for 14 days. Commonly known as: NICODERM CQ CHANGE how you take these medications amLODIPine 10 MG TABS Take 1 tablet by mouth daily. Commonly known as: NORVASC What changed: The strength you have reported taking of this medication has changed The quantity you have reported taking of this medication has changed lisinopril 40 MG TABS Take 1 tablet by mouth daily. Commonly known as: PRINIVIL What changed: The strength you have reported taking of this medication has changed The quantity you have reported taking of this medication has changed CONTINUE taking these medications Atorvastatin 40 MG TABS Take 1 tablet by mouth daily. Commonly known as: LIPITOR busPIRone 5 MG TABS Take 1 tablet by mouth daily. Commonly known as: BUSPAR STOP taking these medications warfarin 7.5 MG tablet Commonly known as: COUMADIN Medication Instructions: Know your medicines ? Make sure you know why you are taking each medicine. ? Make a master list of all your medicines. Write down the medicine names and doctors' names. Include doses and side effects too. And write down why you take each medicine. Include all prescription and [id number] medicines, vitamins, and supplements. Keep this list up to date. Take a copy to each doctor visit. ? Know when you will run out of each medicine. Ask your pharmacist if there are ways the drugstore can remind you to refill your medicines so you do not run out. Write refill reminders on your calendar. Don't wait until you have a few pills left. ? Ask your pharmacist to plan your refills so that you can lease picker all your medicines at the same time. This can mean fewer trips to the drugstore. ? If we have prescribed you a new medication during your stay, please contact with your primary physician for refills Follow-up: Ender Rollins MD [address] [facility] [id number] Follow up in 1 week(s) Mahesh Collazo MD [address] [facility] [address] [facility] [phone] Schedule an appointment as soon as possible for a visit Follow up with hematology in 1 month MRI with and without contrast Scheduling: Schedule an appointment as soon as possible for a visit Call to make and appt for an MRI [facility] [id number] [facility] [id number] [address] [facility] [address] Schedule an appointment as soon as possible for a visit A referral has been placed for you to get follow up with The Department of Urology. Please call [phone] to schedule your appoitment as soon as possible. Upcoming Appointments (up to five)-Some appointments for Medical Center outpatient clinics or diagnostic testing locations are not displayed below Provider Department Dept Phone 01/27/2023 3:20 PM [facility] [place] Arrive at: Arrive to 1st Floor Registration Desk [phone] Associated attestation - Pancho Franks MD - 11/29/2022 2:05 PM EST I have independently seen and examined the patient on 11/29/22. I agree with the history, examination, assessment and plan as documented by the HOME PARAPROFESSIONAL with my changes/additions added. HPI: Patient is a 77 yo M with a hx of CAD, HTN, factor V Leiden on warfarin, DVT s/p IVC filter, prior hx of L frontal ICH who presented with severe headache and nausea. Found to have R occipital ICH with IVH. S/p K centra and Vitamin K for reversal. MRA was negative for dAVF. NSGY consulted no acute surgical intervention Physical Exam GENERAL: no acute distress HEENT: normocephalic, atraumatic CARDIO: +S1S2, RRR, no edema PULM: CTABL ABDOMINAL: soft, nontender, nondistended, active bowel sounds EXTREMITIES: no wounds nor lesions SKIN: no rash or obvious skin abnormalities VASCULAR: + distal pulses, capillary refill <3 seconds NEURO: Awake and alert, follows commands, pupils reactive to light, asymmetric face, mild dysarthria, left sided pronator drift Assessment and Plan: Neuro: Acute right occipital ICH in the setting of coagulopathy S/p Kcentra and Vit K for warfarin reversal - At very high risk for stroke, DVT/PE given his hx of hypercoagulability. Plan to start Eliquis instead of Warfarin on hemorrhage day 10 (11/30). Dc ASA at that time Other medical problems: HTN: Lisinopril and Norvasc. Switched hydralazine to Coreg LLL Pneumonia: S/p 7 days of Cefepime Target SpO2 >89% given emphysema looking lungs on CXR. Duonebs Tobacco use: Nicotine patch, counseling on smoking cessation DVT/PE S/p IVC filer. Plan for anticoagulation as above VTE prophylaxis: - SCDs - Chemical prophylaxis with subcutaneous Lovenox Additional details and other supportive care as per the HOME PARAPROFESSIONAL note below. I personally evaluated and examined the patient with the HOME PARAPROFESSIONAL to develop the plan as documented and spent the majority of time developing the assessment and plan. I spent 34 min in discharge management and planning. Pancho Franks MD Neurovascular Attending documented in this encounter [facility] 11-28-2022 Note Formatting of this n ote might be different from the original. Problem: OT - Cognition Goal: Cognition simple ADL Description: Pt will demonstrate improved cognition, completing simple ADL task for 10 minutes with less than 25% cues required to maintain attention, sequencing and problem solving for improved safety and success at discharge destination. Outcome: Ongoing Problem: OT - Endurance Goal: Endurance Functional Mobilty Around Home Description: Pt will complete distance needed for common household mobility independently. Outcome: Progressing Toward Goal Problem: OT - Visual Scanning Goal: Visual Scanning ADL Description: Pt will employ use of visual compensatory strategies with less than 25% cues to increase participation and safety in ADLs. Outcome: Progressing Toward Goal [facility] 11-27-2022 Note Formatting of this n ote might be different from the original. Nutrition Recommendations and Plan of Care: 1. Continue regular diet - recent PO intakes 25-50% 2. Continue Ensure Plus High Protein with meal trays 3. Ordered daily weights 4. RD to follow Dolores Holley RDN,BRIAN, BUFFING WHEEL OPERATOR Page: [phone] Phone: [phone] Please refer to Dietitian Technical Specialist in [employer] for daily RD coverage. [facility] 11-27-2022 Note Formatting of this n ote might be different from the original. Problem: PT - Balance/Coordination/Neuro Re-Education Goal: Standing Balance Description: Pt will score >45/56 on scott balance assessment to demonstrate low fall risk and safety with dynamic balance tasks. Outcome: Progressing Toward Goal Problem: PT - Mobility Goal: Ambulation Description: Pt will ambulate 150 feet with out an assistive device with supervision to improve ability to navigate home environment. Outcome: Progressing Toward Goal Problem: PT - Transfers Goal: Supine <-> Sit Description: Pt will perform bed mobility with flat bed & no rail with modified independence in order to improve functional mobility and safety. Outcome: Progressing Toward Goal Goal: Sit <-> Stand Description: Pt will perform sit to/from stand transfers with supervision with least restrictive device in order to improve functional mobility and safety. Outcome: Progressing Toward Goal [facility] 11-27-2022 Note Formatting of this n ote might be different from the original. Problem: OT - ADLs Goal: Grooming Description: Pt will complete grooming in standing with modified independence for improved ability to safely complete ADLs. Outcome: Progressing Toward Goal Problem: OT - Endurance Goal: Endurance Functional Mobilty Around Home Description: Pt will complete distance needed for common household mobility independently. Outcome: Progressing Toward Goal Problem: OT - Cognition Goal: Cognition simple ADL Description: Pt will demonstrate improved cognition, completing simple ADL task for 10 minutes with less than 25% cues required to maintain attention, sequencing and problem solving for improved safety and success at discharge destination. Outcome: Progressing Toward Goal [facility] 11-27-2022 Miscellaneous Notes Reviewed. Phoned patient's spouse and she reports patient is still at [facility] and she received call today about looking into rehab unit. She is overwhelmed at this time with not being able to see him since she is unable to drive and she stated patient is still very confused. She stated when spouse makes it home she will schedule him a follow up visit. Reviewed. Transferred to [facility] for intracranial hemorrhage. Will need follow up within 1 week of discharge from their facility. Scan on 11/19/2022 8:45 PM by External Provider: ED Summary Scan on 11/19/2022 8:47 PM by External Provider: X-ray Scan on 11/19/2022 11:06 PM by External Provider Scan on 11/20/2022 2:18 AM by External Provider: Discharge Summary Scan on 11/20/2022 2:50 AM by External Provider: CT Scan documented in this encounter [facility] 11-26-2022 Note Formatting of this n ote might be different from the original. Problem: Patient Care Overview Goal: Plan of Care Review Outcome: Ongoing Goal: Individualization & Mutuality Outcome: Ongoing Goal: Discharge Needs Assessment Outcome: Ongoing Goal: Interdisciplinary Rounds/Family Conf Outcome: Ongoing Problem: Nutrition, Imbalanced: Inadequate Oral Intake (Adult) Goal: Identify Related Risk Factors and Signs and Symptoms Description: Related risk factors and signs and symptoms are identified upon initiation of Human Response Clinical Practice Guideline (CPG) Outcome: Ongoing [facility] 11-25-2022 Note Formatting of this n ote might be different from the original. Problem: PT - Balance/Coordination/Neuro Re-Education Goal: Standing Balance Description: Pt will score >45/56 on scott balance assessment to demonstrate low fall risk and safety with dynamic balance tasks. Outcome: Progressing Toward Goal Problem: PT - Mobility Goal: Ambulation Description: Pt will ambulate 150 feet with out an assistive device with supervision to improve ability to navigate home environment. Outcome: Progressing Toward Goal Goal: Stairs Description: Pt will ascend/descend 2 stairs with 1 railings with supervision with out an assistive device to improve ability to perform functional mobility necessary in recommended discharge environment. Outcome: Progressing Toward Goal Problem: PT - Transfers Goal: Supine <-> Sit Description: Pt will perform bed mobility with flat bed & no rail with modified independence in order to improve functional mobility and safety. Outcome: Progressing Toward Goal Goal: Sit <-> Stand Description: Pt will perform sit to/from stand transfers with supervision with least restrictive device in order to improve functional mobility and safety. Outcome: Progressing Toward Goal [facility] 11-25-2022 Note Formatting of this n ote might be different from the original. Problem: OT - Dressing Goal: Lower Body Dressing Description: Pt will complete LE dressing tasks with modified independence for improved ability to complete self-care activities. Outcome: Ongoing Problem: OT - ADLs Goal: Grooming Description: Pt will complete grooming in standing with modified independence for improved ability to safely complete ADLs. Outcome: Progressing Toward Goal Problem: OT - Visual Scanning Goal: Visual Scanning ADL Description: Pt will employ use of visual compensatory strategies with less than 25% cues to increase participation and safety in ADLs. Outcome: Progressing Toward Goal Problem: OT - Cognition Goal: Cognition simple ADL Description: Pt will demonstrate improved cognition, completing simple ADL task for 10 minutes with less than 25% cues required to maintain attention, sequencing and problem solving for improved safety and success at discharge destination. Outcome: Progressing Toward Goal [facility] 11-25-2022 Note Formatting of this n ote might be different from the original. Problem: Patient Care Overview Goal: Plan of Care Review Outcome: Progressing Toward Goal Goal: Individualization & Mutuality Outcome: Progressing Toward Goal Problem: Nutrition, Imbalanced: Inadequate Oral Intake (Adult) Goal: Identify Related Risk Factors and Signs and Symptoms Description: Related risk factors and signs and symptoms are identified upon initiation of Human Response Clinical Practice Guideline (CPG) Outcome: Progressing Toward Goal Problem: Stroke (Hemorrhagic) (Adult) Goal: Signs and Symptoms of Listed Potential Problems Will be Absent, Minimized or Managed (Stroke) Description: Signs and symptoms of listed potential problems will be absent, minimized or managed by discharge/transition of care (reference Stroke (Hemorrhagic) (Adult) CPG). Outcome: Progressing Toward Goal [facility] 11-24-2022 Note Formatting of this n ote might be different from the original. Problem: Patient Care Overview Goal: Plan of Care Review Outcome: Met This Shift Goal: Individualization & Mutuality Outcome: Met This Shift Goal: Discharge Needs Assessment Outcome: Progressing Toward Goal Goal: Interdisciplinary Rounds/Family Conf Outcome: Met This Shift Problem: Nutrition, Imbalanced: Inadequate Oral Intake (Adult) Goal: Identify Related Risk Factors and Signs and Symptoms Description: Related risk factors and signs and symptoms are identified upon initiation of Human Response Clinical Practice Guideline (CPG) Outcome: Progressing Toward Goal [facility] 11-24-2022 Note Formatting of this n ote might be different from the original. Problem: ELEMENTARY PRINCIPAL - Cognition Goal: Problem Solving Goal 1 Description: Patient will complete basic problem solving tasks in at least 90% of opportunities in their immediate environment to support self-advocacy and independence, given min cues across x1-2 consecutive sessions by discharge. Outcome: Ongoing Goal: Alertness Goal Description: With medical optimization, patient will independently maintain alertness for at least 5 minutes across 1 session to determine readiness to participate in further cognitive-linguistic assessment. Outcome: Ongoing [facility] 11-24-2022 Note Formatting of this n ote might be different from the original. Problem: Nutrition, Imbalanced: Inadequate Oral Intake (Adult) Goal: Identify Related Risk Factors and Signs and Symptoms Description: Related risk factors and signs and symptoms are identified upon initiation of Human Response Clinical Practice Guideline (CPG) Outcome: Ongoing Problem: Patient Care Overview Goal: Plan of Care Review Outcome: Progressing Toward Goal Goal: Individualization & Mutuality Outcome: Progressing Toward Goal Problem: Stroke (Hemorrhagic) (Adult) Goal: Signs and Symptoms of Listed Potential Problems Will be Absent, Minimized or Managed (Stroke) Description: Signs and symptoms of listed potential problems will be absent, minimized or managed by discharge/transition of care (reference Stroke (Hemorrhagic) (Adult) CPG). Outcome: Progressing Toward Goal [facility] 11-23-2022 Note Formatting of this n ote might be different from the original. 2150: Notified neurovascular physician about elevated BP at beginning of shift: 191/85. 10mg labetalol given and BP still above parameters at 153/70. Orders placed for hydralazine and medication administered. 2240: Notified about continued elevated BP after labetalol and hydralazine administered: 166/74. Orders placed for 20mg of labetalol PRN 0445: Notified neurovascular physician that BP continues to be elevated throughout the night despite PRNs, orders placed for oral hydralazine. [facility] 11-23-2022 Note Formatting of this n ote might be different from the original. Juli Shook is a 77 yo M with a history of Factor V Leiden (heterozygous), multiple DVT/PE s/p IVC filter placement, chronic warfarin therapy, intracerebral hemorrhage (2015, 2018), HTN, and CAD who was transferred from [facility] with a right occipital intraparenchymal hemorrhage. - Primary team planning to start aspirin on 11/23/22 and if stable, resume apixaban 2.5mg po bid on 11/30/22 and discontinue aspirin. We agree with this plan. - Follow up with [facility] Hematology ([phone]), we will request appointment in 1 month. Hematology consult service will plan to sign off at this time. Please contact us if you have any questions or concerns. Monie Hammonds MD Hematology/Medical Oncology, Fellow [facility] 11-23-2022 Note Formatting of this n ote might be different from the original. BEHAVIORAL EMERGENCY RESPONSE TEAM (MOOSE) RN NOTE 11/23/2022 Juli Shook : 1945 Sitter Rounds: Pt observed sleeping when this teletypewriter operator was rounding. No sitter present in room at this time. Spoke with staff who report no concerns for MOOSE at this time. Theresa Kapoor RN- MOOSE Pager: [phone] MOOSE Phone: [phone] [facility] 11-22-2022 Note Formatting of this n ote might be different from the original. 2009: Patient impulsive and attempting to get out of bed -- redirectable for short periods. At neurological baseline. Will discuss need for sitter and if unable to obtain sitter coverage, will apply restraints if needed for safety. Seroquel provided. NVS aware tMAX 102.1 during day and patient rarely below stated blood pressure parameters of 140. Patient approaching 200 SBP during the day on multiple occasions. Will provide Labetalol IV push and restart Cardene if needed. 2049: Patient 91-92% on RA -- titrated to 2L NC to maintain saturations > 94 percent poor order. Patient currently 97 percent on 2L. 2124: Cardene resumed. NVS aware infectious workup complete (chest xray ready for review). 0: Patient between 120-140 SBP goal on 12.5 mg/hr Cardene. Patient on daily Lisinopril/Amlodipine. NVS aware. 5: Temperature 100.6 -- NVS aware. Will provide Tylenol. 0600: Patient titrated off Cardene (106/54, 112/56 and 108/55 blood pressures on last several checks). NVS aware. [facility] 11-22-2022 Note Formatting of this n ote might be different from the original. Problem: PT - Balance/Coordination/Neuro Re-Education Goal: Standing Balance Description: Pt will score >45/56 on scott balance assessment to demonstrate low fall risk and safety with dynamic balance tasks. Outcome: Progressing Toward Goal Problem: PT - Mobility Goal: Ambulation Description: Pt will ambulate 150 feet with out an assistive device with supervision to improve ability to navigate home environment. Outcome: Progressing Toward Goal Problem: PT - Transfers Goal: Supine <-> Sit Description: Pt will perform bed mobility with flat bed & no rail with modified independence in order to improve functional mobility and safety. Outcome: Progressing Toward Goal Goal: Sit <-> Stand Description: Pt will perform sit to/from stand transfers with supervision with least restrictive device in order to improve functional mobility and safety. Outcome: Progressing Toward Goal [facility] 11-22-2022 Note Formatting of this n ote might be different from the original. Problem: Patient Care Overview Goal: Plan of Care Review Outcome: Ongoing Goal: Individualization & Mutuality Outcome: Ongoing Goal: Discharge Needs Assessment Outcome: Ongoing Goal: Interdisciplinary Rounds/Family Conf Outcome: Ongoing Problem: Nutrition, Imbalanced: Inadequate Oral Intake (Adult) Goal: Identify Related Risk Factors and Signs and Symptoms Description: Related risk factors and signs and symptoms are identified upon initiation of Human Response Clinical Practice Guideline (CPG) Outcome: Ongoing [facility] 11-22-2022 Note Formatting of this n ote might be different from the original. Problem: OT - Dressing Goal: Lower Body Dressing Description: Pt will complete LE dressing tasks with modified independence for improved ability to complete self-care activities. Outcome: Progressing Toward Goal Problem: OT - ADLs Goal: Grooming Description: Pt will complete grooming in standing with modified independence for improved ability to safely complete ADLs. Outcome: Progressing Toward Goal Problem: OT - Endurance Goal: Endurance Functional Mobilty Around Home Description: Pt will complete distance needed for common household mobility independently. Outcome: Progressing Toward Goal Problem: OT - Visual Scanning Goal: Visual Scanning ADL Description: Pt will employ use of visual compensatory strategies with less than 25% cues to increase participation and safety in ADLs. Outcome: Progressing Toward Goal Problem: OT - Cognition Goal: Cognition simple ADL Description: Pt will demonstrate improved cognition, completing simple ADL task for 10 minutes with less than 25% cues required to maintain attention, sequencing and problem solving for improved safety and success at discharge destination. Outcome: Progressing Toward Goal [facility] 11-22-2022 Note Formatting of this n ote might be different from the original. Alberto wedge placed at the end of the bed for safety. [facility] 11-22-2022 Note Formatting of this n ote might be different from the original. Difficult to get an accurate BP on patient. Jumping out of bed often and tends to move arm when attempting to check BP. [facility] 11-22-2022 Note Formatting of this n ote might be different from the original. Patient confused and getting OOB frequently throughout the night. Bed alarm on and door remains open for safety. [facility] 11-22-2022 Note Formatting of this n ote might be different from the original. Problem: Patient Care Overview Goal: Plan of Care Review Outcome: Ongoing Goal: Individualization & Mutuality Outcome: Ongoing Goal: Discharge Needs Assessment Outcome: Ongoing Problem: Nutrition, Imbalanced: Inadequate Oral Intake (Adult) Goal: Identify Related Risk Factors and Signs and Symptoms Description: Related risk factors and signs and symptoms are identified upon initiation of Human Response Clinical Practice Guideline (CPG) Outcome: Ongoing [facility] 11-21-2022 Note Formatting of this n ote might be different from the original. Neurosurgery Update: Consulted for R occipital IPH with IVH extension (ICH score 1). Imaging reviewed which revealed stable ICH. MRI/MRA negative for underlying lesion or vascular abnormality. No neurosurgical intervention at this time. - No need for neurosurgical follow up. - Neurosurgery will sign-off. Please call with questions. Giovany Caceres MD, Neurosurgery NS2 ([phone]) [facility] Work Phone: 11-21-2022 Note Formatting of this n ote might be different from the original. Problem: PT - Balance/Coordination/Neuro Re-Education Goal: Standing Balance Description: Pt will score >45/56 on scott balance assessment to demonstrate low fall risk and safety with dynamic balance tasks. Outcome: Ongoing Problem: PT - Mobility Goal: Ambulation Description: Pt will ambulate 150 feet with out an assistive device with supervision to improve ability to navigate home environment. Outcome: Ongoing Goal: Stairs Description: Pt will ascend/descend 2 stairs with 1 railings with supervision with out an assistive device to improve ability to perform functional mobility necessary in recommended discharge environment. Outcome: Ongoing Problem: PT - Transfers Goal: Supine <-> Sit Description: Pt will perform bed mobility with flat bed & no rail with modified independence in order to improve functional mobility and safety. Outcome: Ongoing Goal: Sit <-> Stand Description: Pt will perform sit to/from stand transfers with supervision with least restrictive device in order to improve functional mobility and safety. Outcome: Ongoing Goal: Stand-Pivot Description: Pt will perform stand/pivot transfer to/from bed/chair/commode with supervision with least restrictive device in order to improve functional mobility and safety. Outcome: Ongoing [facility] 11-21-2022 Note Formatting of this n ote might be different from the original. Problem: OT - Dressing Goal: Lower Body Dressing Description: Pt will complete LE dressing tasks with modified independence for improved ability to complete self-care activities. Outcome: Ongoing Problem: OT - ADLs Goal: Grooming Description: Pt will complete grooming in standing with modified independence for improved ability to safely complete ADLs. Outcome: Ongoing Problem: OT - Endurance Goal: Endurance Functional Mobilty Around Home Description: Pt will complete distance needed for common household mobility independently. Outcome: Ongoing Problem: OT - Other Goal: Energy Conservation Description: Pt will follow energy conservation techniques appropriately 75% of the time during ADLs and functional mobility to conserve energy and maximize functional performance. Outcome: Ongoing [facility] 11-21-2022 Hospital Discharge instructions Johnnie Bhandari, [employer] - 11/21/2022 12:45 PM EST You will start aspirin 81 mg daily on 11/23/22 and stop this medication on 11/30/22 You will start Eliquis 2.5 mg twice daily on 11/30/22 The radiologist saw a finding on your imaging that needs to be followed up. You need to contact your doctor immediately to schedule further follow-up (another visit) for this finding. You should call right away to schedule a follow-up within the next 2-4 weeks. The finding was an incidental finding on your CT angio brain/neck and showed a right thyroid lobe heterogenous lesion. Although this may rubber turner to be nothing of concern, it is very important to be sure your family physician. Your doctor may order additional testing. If you do not have a primary care doctor or can't get an appointment in a reasonable time (2-4 weeks), let us know as soon as you read these instructions and we may be able to help set up a follow-up appointment. Please take these discharge instructions to your primary care doctor follow appointment to show them,keep them for your reference and refer to them often for follow up appointments.It is best to write your appointments on a personal calendar so you do not miss them,call if you need to change any appointments please. Education: What are the most common symptoms of stroke? The following are the most common symptoms of stroke. However, each individual may experience symptoms differently. If any of these symptoms are present, call 911 (or your local ambulance service) immediately. Treatment is most effective when started immediately. Symptoms may be sudden and include: -Weakness or numbness of the face, arm, or leg, especially on one side of the body -Confusion or difficulty speaking or understanding -Problems with vision such as dimness or loss of vision in one or both eyes -Dizziness or problems with balance or coordination -Problems with movement or walking -Severe headaches with no other known cause, especially if sudden onset All of the above warning signs may not occur with each stroke. Do not ignore any of the warning signs, even if they go away - take action immediately. The symptoms of stroke may resemble other medical conditions or problems. Always consult your physician for a diagnosis We have provided both written and verbal education to the patient and family regarding ischemic and hemorrhagic strokes. We have discussed the warning signs/symptoms as well as causes of stroke. We have discussed the importance of activating 911/EMS in the event of these symptoms. We have reviewed the patient's personal risk factors as well as education on reducing these risk factors. [facility] Personalized Stroke Treatment Plan My Stroke Type: [] Ischemic Stroke (Blockage of blood flow to the brain) [x] Hemorrhagic Stroke (Bleeding in the brain) [] TIA- Transient Ischemic Attack (mini-stroke) My Risk Factors Include: [x] High Blood Pressure [] Diabetes [] High Cholesterol [] Heart Disease [] Atrial Fibrillation (Irregular Heart Rate) [x] Smoking [] Obesity [] Clotting Disorder [] Alcohol Abuse [] Drug Abuse [] Prior History [] Family History [] Obstructive Sleep Apnea My Follow-Up Treatment Goals: [x] Blood Pressure < 140/90 [x] Stop Smoking Immediately [] LDL < 70 [] HgA1C levels <7% [] Decrease BMI to <25 [x] Take all ordered medications [] Avoid non-prescription or over the counter medication not cleared by your physician [x] Limit Alcohol use to no more than 1 drink per day for females and 2 drinks per day for males [] Do not drive until cleared [x] Follow up with PCP within a week of discharge to home [x] Follow-up with Neurovascular [x] Follow-up with Occupational,physical and speech therapy if ordered [x] Watch out for depression and seek treatment if needed CONTACTS FOR NEUROVASCULAR SERVICE: - You may call your neurovascular doctors office at [phone], if you have questions between 8:30 am and 4:30 pm. - For off hours or the weekend you may call the office or the hospital bar machine operator production at and ask for the stroke resident abalone sheller to be paged. - If you have any questions or needs, please call Nishi Salmeron RN, stroke information technology program manager at [phone] Mon-Fri from 7-3 ? Any questions concerning your discharge instructions please call Case Management Office [phone] Patient Stroke Resources: [facility] Stroke Support [facility] Stroke Support Group is for stroke survivors, friends, and family members. Meets every Friday from 12:00PM to 1:00PM at [facility] [address] [place] [address], [place] [address] Cynthia Cook, at [phone]. If you are outside of the [facility], contact [employer] [place] [employer] at www.strokeassociation.org or 6-703-7-stroke, or for supports groups in your area. Also refer to the Stroke Education booklet you received as part of your stroke education while you were a patient for additional resources Additional Contacts: Evening and Weekend Contacts If you have questions or concerns during evening, weekend, or holiday hours, please call: -[facility] bar machine operator production at [phone]. -[facility] bar machine operator production at [phone] Ask the bar machine operator production to page the on-call doctor for Neurovascular service, they were responsible for your care while you were in the hospital. If you having an emergency, call 911. *In the event of an Emergency: If you have a physical or psychiatric emergency call 911 or go to your local emergency department. You should also call your outpatient provider's emergency number. Other reference numbers: [facility] Intake Office at 229-034-6623; [employer] at 533-768-5069; or Suicide Prevention Hotline at 400-361-6335. *Helpful phone numbers: Free Crisis Hotline: 7-181-342-TALK ( ) Suicide Hotline: 585.531.5065 Seniors Suicide Hotline: 918.432.3192 [facility] [facility]: [phone] [facility] [place]: [phone] (free counseling) [facility] Access Hotline: 670-362-VZQS (715-348-1214) 24-hour crisis text hotline: Text the word 4hope to 819-855 for crisis support. Texting this number is free if you have Verizon, T-Mobile, AT[employer] or Sprint. [facility] Financial Assistance: If you want to learn more about these programs, please call .There are three programs to help you with the cost of your medical care: Medicaid, Hospital Care Assurance Program (HCAP) & andrea If you are without Insurance and believe you may qualify for Medicaid/public assistance: [facility] Department of Job and Family Services can now process odonnell (TANF), food (SNAP) and Medicaid Applications over the phone. Please call [phone] ([phone] and apply over the phone or apply online at www.benefits.[place].gov. Friday-Friday 8am-12pm noon. Medication Assistance Programs [employer] members can buy 100+ common prescriptions for FREE, $3 or $6. Annual membership is $36 for individuals and $72 for families (up to 6 people, including pets). Sign up online or enroll at your nearest pharmacy! -[employer], web site can provide a significant number of coupons for medications at a much lower corcoran. NOLAN Pires - 11/21/2022 12:44 PM EST Know your medicines Make sure you know why you are taking each medicine. Make a master list of all your medicines. Write down the medicine names and doctors' names. Include doses and side effects too. And write down why you take each medicine. Include all prescription and xvtk-wst-ivozwvy medicines, vitamins, and supplements. Keep this list up to date. Take a copy to each doctor visit. Know when you will run out of each medicine. Ask your pharmacist if there are ways the drugstore can remind you to refill your medicines so you do not run out. Write refill reminders on your calendar. Don't wait until you have a few pills left. Ask your pharmacist to plan your refills so that you can lease picker all your medicines at the same time. This can mean fewer trips to the drugstore. If we have prescribed you a new medication during your stay, please contact with your primary physician for refills N Wilson - 11/21/2022 12:44 PM EST Activity -- Please follow these instructions: -Advance your activity as you can tolerate - You may walk all you want. You may go up and down the steps. Use the railing for support - It is normal for your energy level and sleep patterns to change after a stroke - Take rest periods during the day as needed - Complete recovery may take several weeks, months, up to a year. Patience is glass. NOLAN Allen - 11/21/2022 12:45 PM EST Current Diet Orders Procedures DIET REGULAR Meds whole with water. Intermittent supervision for safety to ensure sitting upright and alert. Standing Status: Standing Number of Occurrences: 1 NOLAN Pires - 11/21/2022 12:45 PM EST Notify Your Doctor if you have any of the following: NEUROLOGICAL CHANGES-- Change in alertness Increased sleepiness Nausea and vomiting New onset of numbness or weakness in arms or legs New problems with your bowels or bladder New or worse problems with balance or walking Seizures, new or worsening UNRELIEVED HEADACHE PAIN-- New or increased pain unrelieved with pain medications Pain associated with nausea and vomiting Pain associated with other symptoms QUESTIONS OR PROBLEMS-- Any questions or problems that you are unsure about Deep Vein Thrombosis Symptoms Call your doctor or nurse right away if you have any signs of blood clots such as -Tender, swollen or reddened areas anywhere in your leg. -Numbness or tingling in your lower leg or calf, or at the top of your leg or groin -Skin on you leg looks pale or blue or feels cold to touch -Chest pain or have trouble breathing -Fever or chills documented in this encounter [facility] 11-20-2022 Note Formatting of this n ote might be different from the original. On admission to [facility], from another [facility] inpatient unit a dual RN initial assessment of skin condition was performed by Jose Armando Smith RN and Rahel Rodriguez RN. Skin Assessment: Skin within defined limits:Yes Karlos Score: 20 LDA Added: No Jose Armando Smith RN [facility] 11-20-2022 Note Formatting of this n ote is different from the original. Respiratory Therapy NON-Vent Assessment Juli Shook is a 77 y.o. male DNRCC-ARREST No active isolations Admit reason: No chief complaint on file. The encounter diagnosis was Nontraumatic intracerebral hemorrhage, unspecified cerebral location, unspecified laterality. Pulm/Smoking Hx: Past Medical History: Diagnosis Date CAD (coronary artery disease) DVT (deep venous thrombosis) Factor V deficiency Factor V Leiden HLD (hyperlipidemia) Intracranial hemorrhage Memory impairment Pulmonary embolism Social History Tobacco Use Smoking status: Not on file Smokeless tobacco: Not on file Substance Use Topics Alcohol use: Not on file Oxygen Therapy: O2 Device: O2 Device: room air Flow: Oxygen Concentration: O2 Sat: O2 Sat (%): 93 % BIPAP Settings: IPAP: EPAP: Set Rate: Recent Vitals: Blood pressure 139/59, pulse 67, temperature 98.8 F (37.1 C), temperature source Oral, resp. rate 16, height 1.765 m (5' 9.5 ), weight 61.6 kg (135 lb 12.9 oz), SpO2 93 %. IBW VT: Radiology: No acute findings Recent pertinent labs: Ptt/Pt/Inr: 30.8/17.5/1.4 (11/20 515-11/20 812) WBC/Hgb/Hct/Plts: 13.91/13.9/42.3/225 (11/20 515) Recent ABG/VBG: Sputum/Secretions/Consistency/[place] r: NA Breath Sounds: Diminished bilat Current Orders: Duoneb Q6 Plan of care/Rounds Updates: RT protocol initiated; txs changed to Q6 x4 doses per protocol. Pt denies any shortness of breath, does not take nebs at home, and is not wheezing. Will cont to monitor. Signed: Zoya Miller RCP 11/20/2022 8:15 PM [facility] 11-20-2022 Consult note Formatting of th is note might be different from the original. Stroke Attending Addendum (Date of service 11/20/22): I have interviewed and examined patient. I have reviewed Dr. Chris Contreras's note and agree with the following highlights, additions, and addendums: The patient is a 77 y.o. right-handed male ex-smoker with a history of coronary artery disease, hypertension hypertension and FVL (recurrent DVTs s/p IVC filter 2015) on coumadin, prior left frontal intracerebral hemorrhage 12/2018 ([facility], CTA neg) who on 11/19/21 developed symptoms of severe headache an nausea. He presented to [facility] where CT brain showed a 3m right occipital intracerebral hemorrhage with intraventricular hemorrhage. INR 2.9. He was given Vitamin K. He was transferred to [facility] and on arrival NIHSS was 0. INR 1.8 and he was given Kcentra. CT angiogram head/neck shows increased vascularity adjacent to tentorium, possible dAVF. NSG consulted. The pateint was started on cardene gtt and admitted to the [facility]. LDL 48, HgbA1c 5.6. ROS: Pertinent Positives and Negatives are no focal motor wewakness. All other systems reviewed and are negative. Interval Overnight History: 138/64. Neurological examination shows mild left facial droop, NIHSS-1 (LF-1). Assessment/Plan: Coumadin related Acute right occipitalIntracerebral hemorrhage Post-bleed day # 1. Coumadin reversed. Continue Blood pressure control. MRI brain/MRA ordered. DVT prophylaxis with SCDs and start heparin SQ on Post-bleed day # 2. PT/OT consult. Filiberto Perez MD [facility] 11-20-2022 Consult note Formatting of th is note might be different from the original. Stroke Attending Addendum (Date of service 11/20/22): I have interviewed and examined patient. I have reviewed Dr. Chris Contreras's note and agree with the following highlights, additions, and addendums: The patient is a 77 y.o. right-handed male ex-smoker with a history of coronary artery disease, hypertension hypertension and FVL (recurrent DVTs s/p IVC filter 2015) on coumadin, prior left frontal intracerebral hemorrhage 12/2018 ([facility], CTA neg) who on 11/19/21 developed symptoms of severe headache an nausea. He presented to [facility] where CT brain showed a 3m right occipital intracerebral hemorrhage with intraventricular hemorrhage. INR 2.9. He was given Vitamin K. He was transferred to [facility] ER and on arrival NIHSS was 0. INR 1.8 and he was given Kcentra. CT angiogram head/neck shows increased vascularity adjacent to tentorium, possible dAVF. NSG consulted. The pateint was started on cardene gtt and admitted to the [facility]. LDL 48, HgbA1c 5.6. ROS: Pertinent Positives and Negatives are no focal motor wewakness. All other systems reviewed and are negative. Interval Overnight History: 138/64. Neurological examination shows mild left facial droop, NIHSS-1 (LF-1). Assessment/Plan: Coumadin related Acute right occipitalIntracerebral hemorrhage Post-bleed day # 1. Coumadin reversed. Continue Blood pressure control. MRI brain/MRA ordered. DVT prophylaxis with SCDs and start heparin SQ on Post-bleed day # 2. PT/OT consult. Filiberto Perez MD Associated Order(s): IP CONSULT TO HEMATOLOGY HEMATOLOGY CONSULT INITIAL EVALUATION IDENTIFICATION PATIENT: Juli Shook ADMIT DATE: 11/20/2022 TIME OF EVALUATION: 11/20/2022 11:01 AM HOSPITAL STAY: LOS: 0 days CONSULTING SERVICE: Neurocritical Care REASON FOR CONSULTATION: History of FVL and recurrent intracranial bleeds. Recommendations regarding need for chronic anticoagulation. ASSESSMENT AND RECOMMENDATIONS Juli Shook is a 77 yo M with a history of Factor V Leiden (heterozygous), multiple DVT/PE s/p IVC filter placement, chronic warfarin therapy, intracerebral hemorrhage (2015, 2018), HTN, and CAD who was transferred from OSH with a right occipital intraparenchymal hemorrhage. Factor V deficiency (heterozygous) History of DVT, LLE (2015, 2019) History of PE (2015) In discussion with son, Juli has a history of clotting events dating back to 40 years ago for which he has received chronic warfarin therapy. He has a strong family history of FVL (father, 2/3 sisters, two sons). In 2015, he presented to OSH with spontaneous intracerebral hemorrhage. His warfarin was discontinued and evaluation revealed nonocclusive thrombus in left external iliac/proximal femoral vein as well as segmental/subsegmental PE in RML/RLL for which an IVC filter was placed. In 2019, he was found to have a nontraumatic subcortical hemorrhage of left cerebral hemisphere. About 10 months later, he developed a DVT and was restarted on warfarin. He now presents with his third intracranial bleeding episode. Per records, he was not initiated on DOAC in the past due to high cost and limited ability to reverse bleeding. We reviewed clotting and bleeding history with Juli and his son via telephone. He has an extensive family history of FVL and clotting episodes. He will require lifelong anticoagulation to prevent any further clotting events; however, he also has experienced significant intracranial bleeding while on warfarin. We agree with holding his anticoagulation for now in setting of IPH. Once cleared from Neurosurgery standpoint in future, we recommend switch to apixaban and initiation of lower dose. He will need to establish care with H[facility]ology at [facility] for monitoring of his anticoagulation and to discuss possible IVC filter removal. RECOMMENDATIONS: - Agree with holding anticoagulation for now in setting of acute intracranial bleed - Once cleared from Neurosurgery standpoint, switch anticoagulation to apixaban 2.5mg bid - He will need to establish care with [facility] about 1 month after discharge This consult was discussed with Dr. Mcgraw, the attending physician. If you have any questions or need any further information, please feel free to contact the Hematology Consult Service. Our pager number is found under the heading IM Consult Serv Hematology on [email or web address]. Thank you for allowing us to participate in the care of Juli Shook. Monie Hammonds MD Hematology/Medical Oncology, Fellow HISTORY OF PRESENT ILLNESS Juli Shook is a 77 yo M with a history of Factor V Leiden (heterozygous), multiple DVT/PE s/p IVC filter placement, chronic warfarin therapy, intracerebral hemorrhage (2016, 2019), HTN, and CAD who was transferred from OSH with a right occipital intraparenchymal hemorrhage. History collected via chart review and discussion with patient. On 11/19/22, Juli developed a severe headache and nausea. He presented to [facility] where evaluation revealed hypertension, INR of 2.9, and CT head imaging with findings of 2.9cm right occipital hemorrhage with intraventricular extension and chronic left frontal/cerebellar infarcts. He was also found to have a UTI. He received Vitamin K, antibiotics, and was transferred to [facility]. On arrival, his INR 1.8. He was evaluated by Neurology and Neurosurgery and received PCC ([id number]) for warfarin reversal. His most recent INR was 1.4. His anticoagulation was held on admission and further head imaging was ordered. Upon interview, Juli reports he feels overall well. His headache has resolved and he has no chest pain, abdominal pain, dyspnea, nausea, vomiting, evidence of bleeding, or other discomfort. He is able to recall events from the past few days as well as previous hospitalizations. He states he has been on warfarin for a very long time and discusses his family history of FVL. He requests that I contact his son for more detailed information about his medications and other events. He lives with his . PAST MEDICAL, SURGICAL, FAMILY, and SOCIAL HISTORY Past Medical History: Diagnosis Date CAD (coronary artery disease) DVT (deep venous thrombosis) Factor V deficiency Factor V Leiden HLD (hyperlipidemia) Intracranial hemorrhage Memory impairment Pulmonary embolism Past Surgical History: Procedure Laterality Date ADENOIDECTOMY COLONOSCOPY DIAGNOSTIC CORONARY STENT PLACEMENT IVC FILTER PLACEMENT TONSILLECTOMY Family History Problem Relation Age of Onset Hypertension Father Hypercoag state Other - Specify Grandchild Hypercoag state Other - Specify Son of renal disease Social History Socioeconomic History Marital status: MEDICATIONS SCHEDULED: amLODIPine (NORVASC) tablet 5 mg, 5 mg, Daily Atorvastatin (LIPITOR) tablet 40 mg, 40 mg, Daily busPIRone (BUSPAR) tablet 5 mg, 5 mg, Daily Ipratropium-albuterol (DUONEB) 0.5-2.5 (3) MG/3ML nebulizer solution 3 mL, 3 mL, Q6HNS Senna (SENOKOT) tablet 8.6 mg, 8.6 mg, Daily Or Senna (SENOKOT) tablet 8.6 mg, 8.6 mg, Daily FLUIDS/DRIPS: niCARdipine (CARDENE) Infusion Stopped (11/20/22 0757) Sodium chloride 0.9% 75 mL/hr at 11/20/22 1011 PRNs: Acetaminophen, 325 mg, Q4H PRN Or Acetaminophen, 325 mg, Q4H PRN Or Acetaminophen, 650 mg, Q4H PRN Or Acetaminophen, 650 mg, Q4H PRN hydrALAZINE, 10 mg, Q1H PRN Or hydrALAZINE, 20 mg, Q1H PRN Labetalol, 10 mg, Q1H PRN Or Labetalol, 20 mg, Q1H PRN Ondansetron 4mg/2ml, 4 mg, Q6H PRN Or Ondansetron, 4 mg, Q6H PRN Polyethylene glycol, 17 g, Daily PRN Or Polyethylene glycol, 17 g, Daily PRN Sodium chloride (PF), 1-100 mL, Once PRN Sodium chloride 0.9%, 250 mL, PRN ALLERGIES: He is allergic to sulfa antibiotics. REVIEW OF SYSTEMS CONSTITUTIONAL: No fever, chills EYES: No changes in vision. CARDIOVASCULAR: No chest pain, palpitations. GASTROINTESTINAL: No nausea, vomiting, abdominal pain NEUROLOGICAL: No dizziness or headaches HEME: +IPH, no other evidence of bleeding OBJECTIVE DATA Pulse (Heart Rate): [54-83] 54 Resp Rate: [14-23] 18 BP: (107-192)/(50-75) 135/64 O2 Sat (%): [91 %-94 %] 93 % Weight: [61.6 kg (135 lb 12.9 oz)] 61.6 kg (135 lb 12.9 oz) Oxygen Therapy: Oxygen Therapy O2 Sat (%): 93 % O2 Device: room air Physical Exam: Gen: NAD, sitting up in bed HEENT: sclerae anicteric Resp: CTAB, no crackles or wheezing, breathing comfortably on room air CV: RRR, no m/r/g GI: soft, non-tender, non-distended Ext: warm, no LE edema Neuro: A&Ox4, speech fluent, conversing appropriately LABS AND IMAGING CBC Lab Results Component Value Date WBC 13.91 (H) 11/20/2022 HGB 13.9 11/20/2022 HCT 42.3 11/20/2022 PLATELET 225 11/20/2022 MCV 88.3 11/20/2022 EDIF Lab Results Component Value Date RBCDISTRIBU 13.9 11/20/2022 GRNLOCYT 76.6 11/20/2022 LYMPHOCYT 13.2 11/20/2022 MONOCYTELEC 9.6 11/20/2022 EOSINOPHILS 0.1 11/20/2022 BASOPHILS 0.2 11/20/2022 LYMPHOCYTABS 1.84 11/20/2022 EOSINOPHLABS <0.04 11/20/2022 PLATELET 225 11/20/2022 MPV 10.6 11/20/2022 Last 3 Hemoglobin Lab Results Component Value Date HGB 13.9 11/20/2022 Last 3 WBC Lab Results Component Value Date WBC 13.91 (H) 11/20/2022 Last 3 Platelets Lab Results Component Value Date PLATELET 225 11/20/2022 No results found for: RETIC, RETICABS No results found for: IRON, FERRITIN No results found for: HAPTOGLOBIN Chemistry Bun/Creat/Cl/CO2/Glucose: 19/0.91/106/22/99 (11/20 515-11/20 753) Na/K+/Phos/Mg/Ca: 136/4.0/--/--/-- (11/20 515) Lab Results Component Value Date ALT 12 11/20/2022 AST 24 11/20/2022 ALKPHOS 81 11/20/2022 BILITOTAL 1.5 (H) 11/20/2022 BILIDIRECT 0.2 11/20/2022 No results found for: LDH Coagulation Studies Lab Results Component Value Date PT 17.5 (H) 11/20/2022 PTT 30.8 11/20/2022 INR 1.4 (H) 11/20/2022 No results found for: FIBRINOGEN Imaging CT ANGIO BRAIN/NECK Final Result IMPRESSION: 1. No spot sign, large vessel arterial occlusion, dissection or aneurysm. 2. 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 Recommend further evaluation with MRA brain. 3. Right thyroid lobe heterogeneous lesion. Recommend correlation with prior imaging if available, or may consider nonemergent thyroid ultrasound. I personally viewed and interpreted these images and I have reviewed and approved this report. STROKE HEAD-STROKE ALERT ONLY Final Result IMPRESSION: 1. Right occipital intraparenchymal hemorrhage with intraventricular extension. Thin subdural hemorrhage and trace subarachnoid hemorrhage. 2. 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 A Critical finding has been discussed with Chris Contreras MD with a read back to Imelda Milton MD on 11/20/2022 5:22 AM . I personally viewed and interpreted these images and I have reviewed and approved this report. HEAD WITHOUT CONTRAST (Results Pending) ECHOCARDIOGRAM (Results Pending) MRI BRAIN WITH AND WITHOUT CONTRAST (Results Pending) MRI ARTERIOGRAM BRAIN WITHOUT CONTRAST (Results Pending) XR CHEST PORTABLE (Results Pending) Associated attestation - Imelda Mcgraw MD - 11/20/2022 4:42 PM EST .I saw the patient independently and did a history physical exam review of the records and labs. I discussed the plan on rounds and with Dr. Hammonds and reviewed her note. I concur with the history physical and plan of care. Very challenging case of a gentleman with history of multiple thromboses as well as recurrent, spontaneous ICH. He has had the latter while on both warfarin and aspirin. Has IVC filter in place which may be contributing to thrombotic risk, as well. While it is concerning he has bled on aspirin alone, eliquis has been shown to be superior to aspirin in preventing recurrent VTE AND has been shown to have reduced bleeding risk when compared to warfarin. Once cleared from neurosurgery, low dose eliquis may be his best option to balance thrombosis and bleeding risk. I do recommend he receive hematology follow up for close monitoring as an outpatient, as well. Agree with neurosurg workup for any structural etiologies. He may benefit from workup for bleeding disorder once anticoagulants are out of his system. Associated Order(s): IP CONSULT TO SURGERY - NEURO Neurosurgery Consult Note Reason for Consultation: IPH HPI Mr. Juli Shook is a 77 y.o. 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 Patient states he started vomiting earlier today. Went to OSH where CTH showed R occipital IPH (ICH score 1) with intraventricular extension. Transferred to [facility] for further management after receiving vitamin K. Patient is awake and alert. INR 1.8 on arrival. Pt denies numbness, weakness, or other focal neurologic deficits. He takes warfarin, last dose 11/18. ROS: All other systems are negative except as mentioned in HPI No past medical history on file. No past surgical history on file. No family history on file. Allergies Allergies Allergen Reactions Sulfa Antibiotics Had allergic reaction as a child (unknown reaction) Infusions niCARdipine (CARDENE) Infusion 5 mg/hr (11/20/22528) Sodium chloride 0.9% Scheduled Meds PRN Meds: hydrALAZINE, Labetalol, Sodium chloride (PF) Home Meds Prior to Admission medications Medication Sig Start Date End Date Taking? Authorizing Provider amLODIPine 5 MG tablet Take 1 tablet by mouth daily. Yes Historical Provider Atorvastatin 40 MG tablet Take 1 tablet by mouth daily. Yes Historical Provider busPIRone 5 MG tablet Take 1 tablet by mouth daily. Yes Historical Provider Lisinopril 20 MG tablet Take 1 tablet by mouth daily. Yes Historical Provider warfarin 7.5 MG tablet Take 1 tablet by mouth every evening at 6 PM. Take as directed. Yes Historical Provider Vitals Physical General: NAD Cards: no obvious JVD Resp: no stridor or retractions Abd: no obvious distention or malformations Ext: no edema Awake, alert, oriented x3. Cooperative, follows commands. Language fluent. Gaze conjugate. PERRL L[facility] EOMI bilaterally. Facial movement intact and symmetric. Tongue is midline. BUE/BLE 5/5 Sensation is intact to light touch throughout. No drift Labs WBC/Hgb/Hct/Plts: 13.91/13.9/42.3/225 (11/20 515) Bun/Creat/Cl/CO2/Glucose: --/--/--/--/111 (11/20 6543) No results for input(s): PT, INR in the last 72 hours. Imaging: CT HEAD WITHOUT CONTRAST (Results Pending) CT STROKE HEAD-STROKE ALERT ONLY (Results Pending) CT ANGIO BRAIN/NECK (Results Pending) A/P: Juli Shook is a 77 y.o. 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 - CTH repeat complete - CTA read - MRI brain w/wo contrast - hold warfarin - INR reversal to <1.4 - goal SBP<140, INR<1.4, Platelets >100k - hold all antiplatelet agents and anticoagulation - neurovascular consult Staff: Dr. Sams Covering: NS2 ([id number]) Kelvin Wagner Neurosurgery Resident ## neurosurgery coverage changes at 0530/1730; if 0530 or 1730 has passed since original consult note placed, please page covering pager above ## Associated attestation - Chuckie Sams MD, PhD - 11/20/2022 7:53 AM EST Attending Addendum I have seen and examined the patient and agree with the resident's note. He has a small right occipital hemorrhage. His ICH score is 1. He is unlikely to require neurosurgical intervention. Images from the original note were not included. NEUROVASCULAR EVALUATION NOTE Date of Evaluation: November 20, 2022 Unit: Room/bed info not found Consultation requested by: Dr. Erazo att. providers found Patient status: Emergency Length of stay: 0 days Previous Hospitalization/Records Reviewed: office notes, ER records, radiology reports, historical medical records Chief Complaint / Reason for Consult Hemorrhagic stroke alert History of present Illness Juli Shook is a Rt handed 77 y.o. male with a PMHx of HTN, HLD, DVT, PE, Factor 5 Leiden deficiency (on warfarin) , Lt frontal hemorrhage (2018) presenting as a Hemorrhagic stroke alert from [facility] for [facility]. On 11/19 pt complained of severe headache and wanted to throw up. Patient was taken to [facility]. CTH showed 3cm Rt Occipital hemorrhage with extension into the Rt lateral ventricle. WBC 15.6, INR 2.9. Vitamin K given. Patient given 2 doses of Labetalol for BP in [id number]. On arrival to [facility], SBP in 180s. Glucose 111. NIHSS 0. INR 1.8 here. Pupils equal round and reactive to light 4-->2. HCT showed stable Rt Rt Occipital hemorrhage with extension into the Rt lateral ventricle. . CTA Brain/Neck pending. A stroke alert was called for STAT consultation. Neurovascular-specific History / Information - Home antiplatelet / anticoagulation therapy: Antiplatelet therapy: none; Anticoagulation: warfarin - Patient current risk factors: Stroke risk factors include hypertension, hyperlipidemia or hypercoagulable state. Prior stroke history: Lt frontal hemorrhagic stroke. History of stroke in parents? no History of stroke in siblings? no - Stroke Clinical Assessment Information: - Stroke Intervention/Therapy Information: N/A Past History No past medical history on file. No past surgical history on file. No family history on file. Social History Socioeconomic History Marital status: Not on File Medications Cannot display prior to admission medications because the patient has not been admitted in this contact. Review of Systems 12 point ROS negative unless otherwise stated in HPI. Vitals BP: ()/() Arterial Line (1) BP: ()/() There is no height or weight on file to calculate BMI. Patient Lines/Drains/Airways Status Active Lines, Drains, Airways, & Wound Overview None Physical Exam General Physical Exam General: NAD, lying comfortably in bed Neurologic Examination Mental status/Cognition: alert; oriented to month and age; good attention; no apparent neglect Speech/language: fluent; comprehension intact; object naming intact; repetition intact Cranial nerves: CN II Visual young full to confrontation without visual extinction CN III,IV, PERRL (4-->2mm). EOMI. CN V Facial sensation intact to light touch bilaterally in V1, V2, V3 CN VII Face, Smile, Eyebrow raise/closure symmetric. CN VIII Hard of hearing CN IX & X Soft palate elevates symmetrically in the midline, no dysarthria CN XI Shoulder shrug with full strength CN XII Tongue protrudes midline Motor: Normal bulk and tone. All extremities antigravity without drift Sensation: intact to light touch throughout without extinction Coordination/Complex Motor: - Tlcwcd-na-[id number] intact bilaterally without dysmetria - Pujf-rm-etjj intact bilaterally without dysmetria - Rapid alternating movements are normal without dysdiadochokinesia Laboratory Results CBC: Chem: Electrolytes: Coags: Lipid panel: No results found for: CHOLESTEROL, TRIG, HDL, LDLCALC, LDLDIRECT HA1C: No results found for: HGBA1C Imaging OSH CTH 11/20/2022 CT HEAD WITHOUT CONTRAST (Results Pending) CT STROKE HEAD-STROKE ALERT ONLY (Results Pending) CT ANGIO BRAIN/NECK (Results Pending) [facility] Shook is a Rt handed 77 y.o. male with a PMHx of HTN, HLD, DVT, PE, Factor 5 Leiden deficiency (on warfarin) , Lt frontal hemorrhage (2019) presenting as a Hemorrhagic stroke alert from [facility] for AMS. Found to have a Rt Occipital IPH with IVH. Suspected iatrogenic etiology (given elevated INR of 2.9 at OSH). On initial exam, NIH 0. Pupils equal, round, and reactive. No focal neurological deficits on exam. Repeat CTH here stable. CTA pending. Pt will need careful warfarin reversal given his history of Factor 5 Leiden (increased risk of thrombosis). Will also require gtt for blood pressure control. Plan Rt Occipital Hemorrhagic Stroke with IVH - Suspected etiology via TOAST criteria: suspected iatrogenic but cryptogenic - Frequent NeuroChecks per stroke unit protocol: - q 15 min for the first hour - q 1 hour thereafter for the first 24 hours - q 2 hours after 24 hours for a Level 1 Stroke Alert - Imaging: - OSH CTH (11/20 0118AM): Rt occipital IPH with IVH - Initial CTH here (11/20 0400) - CTH stability scan s/p 3-6hrs: Pending - CTA: Pending - MRI Brain - Pending - TTE - Pending - Lipid Panel: LDL - Pending - Statin: Pending LDL value above - HbA1c value - Pending - Antithrombotic: INR<1.4, Platelets >100k, hold all antiplatelet agents and anticoagulation - s/p Vitamin K administration at OSH, ordering 500U of K centra - repeat INR - DVT prophylaxis: holding home warfarin for now - Smoking cessation: if needed - Systolic Blood Pressure goal: <140/110, - recommending starting cardene gtt - Telemetry monitoring for arrhythmia: 72 hours - Swallow screen - Order placed - PT/OT/ELEMENTARY PRINCIPAL consults - Consultations placed Hemorrhagic Stroke Core Measures - NHISS on admission 0, ICH volume 9cm, ICH score 2 - Patient has been started on Mechanical (SCD's) and Pharmacological (SQ heparin) DVT prophylaxis will be started after stable HCT and NS approval. - Antiplatelet therapy is not indicated. - Anticoagulation therapy not indicated in hemorrhagic stroke - Patients LDL P and HgbA1c P were checked and the patient will be discharged on a lipid lowering Statin medication if LDL is greater than 100. -Dysphagia screening ordered, and will be completed prior to patient receiving oral i intake. - Stroke education booklet has been ordered and will be provided by the RN that includes both written and verbal education to the patient and family regarding hemorrhagic strokes. We have reviewed the patient's personal modifiable risk factors including: HTN, hyper-coaguable state as well as education on reducing these risk factors. - Patient is being assessed for Rehab by PT/OT/Speech and PM&R if indicated. Code Status: DNRCCA DNI Disposition: admit to NCCU Staff: Dr. Calderón and NCCU attending Dr Garcia All recommendations are preliminary until co-signed by the Neurovasc attending. For further questions or concerns, please reach out to neurovascular team. Signed, Chris Contreras MD PGY- 4 Department of Neurology Pager: [phone] documented in this encounter [facility] 11-20-2022 Note Formatting of this n ote is different from the original. NEUROCRITICAL CARE HISTORY AND PHYSICAL HOSPITAL VISIT DEMOGRAPHICS Patient: Juli Shook Code status: DNRCC-ARREST Admission date: 11/20/2022 5:06 AM Hospital days: LOS: 0 days CHIEF COMPLAINT Nausea/IPH with IVH HISTORY OF PRESENT ILLNESS Juli Shook is a 77 y.o. male with a past history of HTN, Factor V Leiden (Heterozygous) on warfarin, Dementia, HLD, CAD, Multiple DVT/PE x2 s/p IVC filter, IPH (2016, 2018), Current Smoker (pipe). Mr. Shook was transferred to [facility] after presenting to an OSH with a Right occipital IPH. Patient states he started vomiting earlier today. Went to OSH where CTH showed R occipital IPH (ICH score 1) with intraventricular extension. INR 2.9. Transferred to [facility] for further management after receiving vitamin K Upon arrival to [facility] 14. Rpt CT stable bleed but slight increase in IVH. No sign of obstructive hydrocephalous. INR 1.8. ICH score 1. Given Vit K and 541 units Kcentra (not full weight based dose) 2/2 hx of factor V deficiency INTERVAL HISTORY SINCE ADMISSION 11/20/2022: Admitted to NCCU 11/20: Consult Heme, Chest X-Ray, Amlodipine, MRI, MRA PHYSICAL EXAM GENERAL: Alert, no acute distress HEENT: normocephalic, CARDIO: +S1S2, RRR, Tele: no edema PULM: LCTA throughout matthias, diminished matthias LL. Respirations are easy and unlabored. Equal chest rise. ABDOMINAL: soft, nontender, nondistended, active bowel sounds : voiding without difficulty EXTREMITIES/VASCULAR: 2+ distal pulses x4, capillary refill <3 seconds NEURO: Mental status: alert; oriented to person, place,and month; good attention Speech/language: fluent; comprehension intact; object naming intact; repetition intact Cranial nerves: CN II: Visual young intact to confrontation except appears to have partial left upper outer field cut. PERRL- 3 mm chief technical officer III, IV and : EOMI. No nystagmus. CN V: Facial sensation intact to light touch. CN VII: slight left facial droop CN VIII: Hearing is grossly intact. CN IX and X: Soft palate elevates symmetrically in the midline CN XI: Shoulder shrug and sternocleidomastoid strength 5/5 bilaterally CN XII: Tongue is midline with normal movement; no fasciculations Motor: Normal bulk and tone. No Extremity Drift x4. Extremities 5/5 RUE, RLE, LUE, LLE 4/5 (pt states that he has hip pain on the left that hinders his movement) Sensation: Extremity sensation intact throughout. Coordination: No ataxia, dysmetria FTS ASSESSMENT AND PLAN Neuro: Rt Occipital IPH IVH SD & SAH Mass Effect MLS Chronic Left Transverse & Sigmoid Venous Sinus Thrombosis Prevent/Treat Cerebral Edema (2016 & 2019) IPH - ICH Management: - Neurochecks Q1H - Goal SBP <140 (see cards) - Seizure prophylaxis: - None - 11/20 NSGY consult: no surg intervention - Repeat imaging - MRI B w/ w/out - Imaging: - 11/20 CTA H/N: no spot sign - 11/20 1118: 6H-stability CT H: stable Rt occipital IPH. IVH. Stable sd and sah. Mass effect, MLS. - 11/20 MRI B w/ & w/out: Rt IPH w/ IVH. Scattered SAH, may be d/t chronic hemosiderin standing. Area of encephalomalacia in left frontal lobe. 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 Consider follow up imaging in 8-12 wks to assess for underlying lesion. - 11/20 MRA: no AVM or dAVF - Cytotoxic Cerebral Edema Management: - Goal Na normonatremia; monitor - Hemorrhage presumably 2/2 unknown etiology; evaluation for cause and source: - Complete TTE (see cards) - Obtain LDL level and statin therapy if indicated (see cards) - Obtain HA1C level (see endo) - Defer antiplatelet therapy and therapeutic anticoagulation - Consider urine drug screen on admission if no stroke risk factors - Consider hypercoagulability panel 24H-post tPA if no stroke risk factors - Initiate VTE prophylaxis after bleed stability established (see heme) - Pain/Sedation management - Tylenol 650mg Q4H PRN - Oxycodone 5mg Q4H PRN - Dilaudid 0.5-1mg Q3H PRN Psych: Dementia - Cont home Buspar Pulm: Current Smoker/Tobacco Abuse - Goal SpO2 >92%; wean FiO2 as tolerated O2 Sat (%): 92 % (11/20 1600) O2 Device: room air (11/20 0800) - Duoneb q 6 hr - 11/20 CXR: no acute process Nicotine Dependence Use per Day: 3 pipes per day- has been trying to cut back Patient is not ready to quit Quit Date: P Discussed pharmacotherapy. Offered Rx to be sent to pharmacy of choice. We discussed health risks and resources. Offered referral to [facility] Smoking Cessation clinic (AMB REFERRAL TO SMOKING CESSATION) Spent 3-5 minutes counseling on this topic Denies needing nicotine patch Cards: Essential HTN HLD CAD Temp: [98.2 F (36.8 C)-98.8 F (37.1 C)] 98.8 F (37.1 C) Pulse (Heart Rate): [51-83] 59 Resp Rate: [14-29] 20 BP: (107-192)/(50-84) 133/62 O2 Sat (%): [91 %-94 %] 92 % Weight: [61.6 kg (135 lb 12.9 oz)] 61.6 kg (135 lb 12.9 oz) - Goal SBP <140, MAP >65 - Home antihypertensives: - Amlodipine 5 mg - Lisinopril 20 mg - Current Meds: - 11/20: Amlodipine 5 mg every day - Cardene gtt as needed - PRN labetalol and hydralazine - 11/20 TTE: P - 11/20 EKG: SSadia Rahman, QTc 453 - 11/20 Troponin: 12 - Statin Therapy: - 11/20 LDL: 48 - Cont home Atorvastatin 40 mg Renal/: No Current Issues - Fluid Balance: - Goal: euvolemia - Net PmL/24H, PmL/admission - UOP PmL/24H - Voiding without difficulty - 11/20: D/c'd MIV later in day. - Daily Chem 10; - Electrolytes replaced per NCCU protocol Recent Labs 11/20/22 0516 SODIUM 136 POTASSIUM 4.0 CHLORIDE 106 CO2 22 BUN 19 CREATSERUM 0.91 GI/Nutrition: No Current Issues Recent Labs 11/20/22 0516 ALBUMIN 3.7 BILIDIRECT 0.2 BILITOTAL 1.5* ALKPHOS 81 ALT 12 AST 24 TP 6.3* - DIET HEART HEALTHY - 4 GM SODIUM AAT - [place] Swallow Screening Result: passed=cleared for oral intake - Consult nutrition for malnutrition screening - Body mass index is 19.77 kg/m . - Bowel regimen: - - Senna - Miralax prn Endo: No Current Issues - Goal blood glucose 140-180 - Monitor for need for SSI Recent Labs 11/20/22 0503 11/20/22 0516 11/20/22 0754 GLUCOSE 111* 110* 99 HGBA1C -- 5.6 -- ID: Acute Leukocytosis 2/2 Critical Illness Recent Labs 11/20/22 0516 WBC 13.91* - Temp (24hrs), Av.5 F (36.9 C), Min:98.2 F (36.8 C), Max:98.8 F (37.1 C) - PRN Tylenol for T>100.4F - Most recent and positive cultures: Date Collected Source Result Date Finalized 11/20 Staph nasal swab P 11/20 Urcul P - Antiinfectives: Start Date Antiinfective Coverage Course Length Stop Date Heme/Onc: Hypercoagulable state 2/2 Factor V deficiency Multiple DVT x2/PE Recent Labs 11/20/22 0516 11/20/22 0658 11/20/22 0813 WBC 13.91* -- -- RBC 4.79 -- -- HGB 13.9 -- -- HCT 42.3 -- -- PLATELET 225 -- -- PT 21.1* 17.6* 17.5* PTT 30.8 -- -- INR 1.8* 1.5* 1.4* - Goal plt >100, INR <1.4, Hgb >7 - Vit K and 541 KCentra units given in ED - 11/20 Heme Consulted d/t second ICH and Coagulation Recs: - Hold in setting of IPH. - Once cleared would switch to Apixaban 2.5 mg BID - f/u with Hematology one month after discharge Musc: No Current Issues - PT/OT consulted and following Social/Dispo: - Code status: DNRCC-ARREST - Primary Emergency Contact: Jayjay Shook - HCPOA/LNOK: Ketan POA - 11/20: Last updated Family. - P/P: Medications reconciled - Discharge planning per PCRM/SW. ICU Checklist: [ ] CAM-ICU [ ] ICU Diary daily [ ] SAT [ ] SBT [x ] DVT ppx; [x ] SCDs; [ ] Lovenox, [ ] heparin [ ] Stress ulcer prophylaxis: - Lines/Tubes: [place]: inserted CVC: inserted Ford: inserted Rectal tube: inserted Enteral access: inserted , [ ] gastric; [ ]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 round, and reactive. No focal neurological deficits on exam. Repeat CTH here stable. CTA pending. Pt will need careful warfarin reversal given his history of Factor 5 Leiden (increased risk of thrombosis). Will also require gtt for blood pressure control. Plan Rt Occipital Hemorrhagic Stroke with IVH - Suspected etiology via TOAST criteria: suspected iatrogenic but cryptogenic - Frequent NeuroChecks per stroke unit protocol: - q 15 min for the first hour - q 1 hour thereafter for the first 24 hours - q 2 hours after 24 hours for a Level 1 Stroke Alert - Imaging: - OSH CTH (11/20 0118AM): Rt occipital IPH with IVH - Initial CTH here (11/20 0400) - CTH stability scan s/p 3-6hrs: Pending - CTA: Pending - MRI Brain - Pending - TTE - Pending - Lipid Panel: LDL - Pending - Statin: Pending LDL value above - HbA1c value - Pending - Antithrombotic: INR<1.4, Platelets >100k, hold all antiplatelet agents and anticoagulation - s/p Vitamin K administration at OSH, ordering 500U of K centra - repeat INR - DVT prophylaxis: holding home warfarin for now - Smoking cessation: if needed - Systolic Blood Pressure goal: <140/110, - recommending starting cardene gtt - Telemetry monitoring for arrhythmia: 72 hours - Swallow screen - Order placed - PT/OT/ELEMENTARY PRINCIPAL consults - Consultations placed Hemorrhagic Stroke Core Measures - NHISS on admission 0, ICH volume 9cm, ICH score 2 - Patient has been started on Mechanical (SCD's) and Pharmacological (SQ heparin) DVT prophylaxis will be started after stable HCT and NS approval. - Antiplatelet therapy is not indicated. - Anticoagulation therapy not indicated in hemorrhagic stroke - Patients LDL P and HgbA1c P were checked and the patient will be discharged on a lipid lowering Statin medication if LDL is greater than 100. -Dysphagia screening ordered, and will be completed prior to patient receiving oral i intake. - Stroke education booklet has been ordered and will be provided by the RN that includes both written and verbal education to the patient and family regarding hemorrhagic strokes. We have reviewed the patient's personal modifiable risk factors including: HTN, hyper-coaguable state as well as education on reducing these risk factors. - Patient is being assessed for Rehab by PT/OT/Speech and PM&R if indicated. Code Status: DNRCCA DNI Disposition: admit to NCCU Staff: Dr. Calderón and NCCU attending Dr Garcia All recommendations are preliminary until co-signed by the Neurovasc attending. For further questions or concerns, please reach out to neurovascular team. Signed, Chris Contreras MD PGY- 4 Department of Neurology Pager: [phone] [facility] 10-18-2022 Miscellaneous Notes Patient notified of recommendations from [employer], verbalizes understanding of instructions. Rochelle Herrera LPN Patient has been on this medication for years and he may take even if he has a sulfa allergy. Please tell him to restart. Shantel Chadwick APRN.MENDEZ Patient reports he has not been taking the atorvastatin because he said he read on the label: do not take it if you have a sulfa allergy. Patient stated he has a sulfa allergy. Advised patient will update the provider. If he knows he has been taking it then I need to increase it. Can we have him let is know for sure. Shantel Chadwick APRN.CNP Patient notified of results and message below. Unsure if he is taking the atorvastatin. States, I think I'm taking everything I'm supposed to be. Patient will verify and make sure he is. Yamini Beyer LPN Please call patient and let him know his LDL ( bad cholesterol) and total cholesterol has went up. Is he taking his atorvastatin consistently?Blood sugar mildly elevated however if he was not fasting likely why. Shantel Chadwick APRN.MENDEZ documented in this encounter [facility] 10-16-2022 Miscellaneous Notes Patient notified and voiced understanding. Patient ask that you contact his cell phone first. Marbella Stock MA Patient to continue same dosing for coumadin. Recheck INR in a month. Last INR: INR 2.5 10/16/2022 Current dose of coumadin is: 7.5 mg daily. Last date of dose change: 01/30/22. Previous INR (date and result): 2.1 on 09/16/22 Additional Clinical Information or narrative: no documented in this encounter [facility] 09-18-2022 Miscellaneous Notes Spouse notified. Tracker updated. Reyna Rios MA INR therapeutic. Continue current coumadin dosage and follow up in 4 weeks. Last INR: INR 2.1 09/16/2022 Current dose of coumadin is: 7.5 mg daily. Last date of dose change: 01/30/22. Previous INR (date and result): 08/19/22 INR: 2.4 Additional Clinical Information or narrative: no documented in this encounter [facility] 08-22-2022 History of Present illness Narrative See encounter 08/21/22 for response to transportation need. documented in this encounter [facility] 08-21-2022 Miscellaneous Notes May called and spoke with patient regarding transportation resource needs. Patient address is right on border of [place] and [facility]. May has [facility] Older Adult Resource guide with transportation information. May also has [employer] [place] transportation resource information. May will check with [place] and see if they service [facility] for transportation to medical appts. May noted that she would mail information to patient/spouse to review for help with setting up transportation to appts. Patient has consult for social work instructor Marlyn Jones documented in this encounter [facility] 08-21-2022 History of Present illness Narrative Chief Complaint Patient presents with: Follow Up HPI Juli Shook is a 76 year old male who presents here today for follow up. waiting in the car, but did not drive him here today. No bowel, Gi, or urinary issues. Memory: Follows with Neuro Dr. Leong for memory impairment/dementia with last OV in April. Hx of intracranial hemorrhage. Following up in the next couple months or so on the memory and to discuss possibly starting Aricept. He states he is confused a lot. Has gotten lost while driving to places he has been before but was finally able to get where he was going. He states his thinks that the B12 shots he gets from Neuro seems to help. Discussed that he should not be driving based on his above symptoms. CAD: Taking Lipitor 40 mg daily, tolerating well, no myalgia or gi upset. Follows with Cardio Dr. Bower. HTN: Denies any chest pains, dizziness, or SOB. Is taking HCTZ 12.5 mg daily, Norvasc 5 mg daily, and Lisinopril 20 mg daily. Does not check BP at home. Unsure if he takes Buspar or not. He states his says he does. 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 INR managed by PCP. Therapeutic on last check 08/19. Past medical history, appointments, medications, allergies reviewed. Previous Medical History PAST MEDICAL HISTORY Diagnosis Date Colon polyps Dr. Avalos Coronary artery disease Dr. Bower DVT (deep venous thrombosis) (HCC) multiple Dyslipidemia Factor V Leiden (HCC) def Hypercoagulable state (HCC) possible factor V homozygous Hypertension Intracranial aneurysm Intracranial hemorrhage ([facility]) 2015, 12/2018 Dr. Daniel Memory impairment Dr. Leong Pulmonary embolism ([facility]) S/P IVC filter 2016 Previous Surgical History PAST SURGICAL HISTORY Procedure Laterality Date COLONOSCOPY Last done age 69 or 70 with polyps. told he would not need follow up IVC FILTER PLACEMENT/REMOVAL 2016 STENT 1999, 2001 Cardiac x2 THORACENTESIS 2003 TONSILLECTOMY AND ADENOIDECTOMY HX childhood Family History FAMILY HISTORY Problem Relation Age of Onset Hypertension Father other (hypercoagulable state) Father other (hypercoagulable state) Other other (hypercoagulable state) Grandchild Thyroid Daughter other (factor v) Son Patient Allergies ALLERGIES Allergen Reactions Sulfa (Sulfonamide * Swelling Heparin Other: See Comments Patient states no reactions. Integrilin [Eptifib* Other: See Comments Patient states no reaction. Current Medications Current Outpatient Medications on File Prior to Visit Medication Sig warfarin (COUMADIN) 5 mg tablet 7.5 mg daily or as directed lisinopril (ZESTRIL, PRINIVIL) 20 mg tablet Take 1 tablet by mouth once daily. hydroCHLOROthiazide (HYDRODIURIL, ESIDRIX) 12.5 mg capsule Take 1 capsule by mouth once daily. busPIRone (BUSPAR) 5 mg tablet Take 5 mg by mouth twice daily. amLODIPine (NORVASC) 5 mg tablet Take 1 tablet by mouth once daily. atorvastatin (LIPITOR) 40 mg tablet Take 1 tablet by mouth daily at bedtime. No current facility-administered medications on file prior to visit. Social History Social History Tobacco Use Smoking status: Every Day Years: 60.00 Types: Cigarettes Last attempt to quit: 02/03/2019 Years since quittin.5 Smokeless tobacco: Never Vaping Use Vaping Use: Never used Substance Use Topics Alcohol use: Yes Alcohol/week: 17.5 standard drinks Types: 7 Cans of Beer (12oz) per week Drug use: Never Review of Symptoms REVIEW OF SYSTEMS GENERAL: No weight loss, malaise or fevers RESPIRATORY: Negative for cough, hemoptysis, wheezing, COPD, dyspnea or shortness of breath CARDIOVASCULAR: Negative for chest pain, leg swelling, hypertension, CHF or palpitations GI: No nausea, vomiting, or diarrhea EXAM: BP 120/74 Pulse 66 Resp 16 Wt 64.4 kg (142 lb) BMI 19.80 kg/m General Appearance: Well appearing, alert, in no acute distress, well-hydrated, well nourished. AOx3 today. Skin: AKs on face/ears. Crusted lesions on right ear with possibility of SCC. SKs on back. Lungs: Lungs clear to auscultation. No wheezing, rhonchi, rales.. Heart: RRR without murmur, gallop, or rubs. No ectopy. Abdomen: Normal abdominal exam, Abdomen soft, non-tender. Bowel sounds normal. No masses, organomegaly. Extremities: No deformities, edema, skin discoloration, clubbing or cyanosis. Good capillary refill. . Health Maintenance List SHINGRIX VACCINE(1 of 2) Never done DTAP,TDAP,TD(1 - Tdap) due on 05/06/2019 ADVANCE DIRECTIVE DISCUSSION Never done DEPRESSION ASSESSMENT Never done PNEUMOCOCCAL: 65+(2 - PCV) due on 12/08/2021 COVID-19 VACCINE(4 - Booster for Pfizer series) due on 02/28/2022 INFLUENZA(1) due on 06/27/2022 LDL CHOLESTEROL due on 08/24/2022 ANNUAL PCP TEAM CHRONIC DISEASE VISIT due on 02/04/2023 BP CONTROLLED (<130/80) due on 02/04/2023 DIABETES SCREEN due on 02/20/2025 HEPATITIS C SCREENING Completed Data reviewed Component Latest Ref Rng & Units 02/04/2022 02/20/2022 Protein, Total 6.3 - 8.0 g/dL 7.0 6.7 Albumin 3.9 - 4.9 g/dL 4.3 4.2 Calcium 8.5 - 10.2 mg/dL 9.4 9.1 Bilirubin, Total 0.2 - 1.3 mg/dL 0.7 0.6 Alkaline Phosphatase 38 - 113 U/L 100 104 AST 14 - 40 U/L 35 35 ALT 10 - 54 U/L 20 20 Glucose 74 - 99 mg/dL 91 123 (H) BUN 9 - 24 mg/dL 16 21 Creatinine 0.73 - 1.22 mg/dL 0.95 0.93 Sodium 136 - 144 mmol/L 139 140 Potassium 3.7 - 5.1 mmol/L 5.5 (H) 4.1 Chloride 97 - 105 mmol/L 106 (H) 103 CO2 22 - 30 mmol/L 23 28 Anion Gap 9 - 18 mmol/L 10 9 eGFR >=60 mL/min/1.73m 82 84 WBC 3.70 - 11.00 k/uL 8.74 RBC 4.20 - 6.00 m/uL 5.61 Hemoglobin 13.0 - 17.0 g/dL 16.2 Hematocrit 39.0 - 51.0 % 51.5 (H) MCV 80.0 - 100.0 fL 91.8 MCH 26.0 - 34.0 pg 28.9 MCHC 30.5 - 36.0 g/dL 31.5 RDW-CV 11.5 - 15.0 % 14.6 Platelet Count 150 - 400 k/uL 267 MPV 9.0 - 12.7 fL 11.7 Absolute nRBC <0.01 k/uL <0.01 ASSESSMENT/PLAN: 1. Dementia without behavioral disturbance (HCC) - ICD9: 294.20, ICD10: F03.90 (primary diagnosis) Complaining of worsening memory. Discussed he should not be driving and will refer to social work to help with transportation information. Keep f/u with neurology as recommended. Red flags for re-assessment reviewed with patient in detail. - PRIMARY CARE SOCIAL WORK CONSULT 2. Skin lesion of right ear - ICD9: 380.9, ICD10: H61.91 Possible SCC. Will refer to dermatology for biopsy/removal. - CONSULT TO DERMATOLOGY 3. Actinic keratoses - ICD9: 702.0, ICD10: L57.0 Discussed per cancerous lesions and. will f/u with dermatology for treatment. - CONSULT TO DERMATOLOGY 4. Seborrheic keratoses - ICD9: 702.19, ICD10: L82.1 Benign lesions. Will monitor. 5. Coronary artery disease involving [place] coronary artery of [place] heart without angina pectoris - ICD9: 414.01, ICD10: I25.10 Asymptomatic on current regimen. No changes. F/u with cardiology. - COMP METABOLIC PANEL - LIPID PANEL, NONFASTING 6. Primary hypertension - ICD9: 401.9, ICD10: I10 - good control - Continue current medication(s) - Encouraged dietary sodium restriction/DASH diet - Recommended regular aerobic exercise. - Reviewed risks of HTN and principles of treatment - Goal of BP <130/80 7. Pure hypercholesterolemia - ICD9: 272.0, ICD10: E78.00 Recheck lipid panel. Continue statin. 8. Hypercoagulable state (HCC) - ICD9: 289.81, ICD10: D68.59 Continue coumadin. Will monitor INR. 9. Chronic anticoagulation - ICD9: V58.61, ICD10: Z79.01 Ender Rollins MD documented in this encounter [facility] 07-17-2022 Miscellaneous Notes Contacted patient and notified of results and instructions. Voiced understanding. Marbella Stock MA Advise patient to continue current coumadin dosing and repeat INR in a month. Last INR: INR 2.3 07/17/2022 Current dose of coumadin is: 7.5mg daily. Last date of dose change: . 05/01/2022 Previous INR (date and result): 06/19/2022 Additional Clinical Information or narrative: no documented in this encounter [facility] 06-19-2022 Miscellaneous Notes Pt called and is notified of providers results and instructions. Pt voices understanding. Molly Treadwell RN INR therapeutic. Continue current coumadin dosage and follow up in 4 weeks. Last INR: INR 2.5 06/19/2022 Current dose of coumadin is: 7.5 mg daily. Last date of dose change: Previous INR (date and result): 05/23/22 INR: 2.8 Additional Clinical Information or narrative: no documented in this encounter [facility] 05-22-2022 Miscellaneous Notes Pt notified and voiced understanding. Tracker and med list updated. Madeline Jimenez Ma INR therapeutic. Continue current coumadin dosage and follow up in 4 weeks. Last INR: INR 2.8 05/22/2022 Current dose of coumadin is: 7.5 mg daily. Last date of dose change: 05/01/22. Previous INR (date and result): 05/08/22 INR: 2.6 Additional Clinical Information or narrative: no documented in this encounter [facility] 05-08-2022 Miscellaneous Notes Patient returned call and given provider's message below and patient verbalized understanding. Shaylee Sawyer RN Message left to call back for update. Yamini Beyer LPN INR therapeutic. Continue current coumadin dosage and follow up in 2 weeks. Last INR: INR 2.6 05/08/2022 Current dose of coumadin is: 7.5 mg daily. Last date of dose change: 05/01/22. Previous INR (date and result): 05/01/22 INR: 3.4 Additional Clinical Information or narrative: no documented in this encounter [facility] 05-01-2022 Miscellaneous Notes Pt. informed. Belem Maddox LPN Decrease dose of coumadin to 7.5 mg daily and recheck INR 1 week Paul Wong DO Please forward INR results to doctor abalone sheller. Thanks, Shantel Chadwick APRN.MENDEZ Last INR: INR 3.4 (EXT) 05/01/2022 Current dose of coumadin is: 10 mg Mon, Wed and 7.5 mg all other days Last date of dose change: 02/05/22 Previous INR (date and result): 3.0 02/14/2022 Additional Clinical Information or narrative: yes: Madiha Hand [facility] @ [facility] calling with INR result. Patient was seen in their office and labs were drawn due to patient told them he had not had labs drawn in years . She will fax lab results to PCP office. (CMP, TSH and INR) documented in this encounter [facility] 02-15-2022 Miscellaneous Notes Reviewed. Pt called in and is notified of providers and pharmacies messages. He reports he does not remember any allergy, and he though he was taking HCTZ now. Pt reports he just got done bringing his home from the hospital, and he is going to go to the pharmacy and see what they have to say. Molly Treadwell RN I see where he was prescribed this previously, but not why it was discontinued. I have no reported allergy for this type of drug. What does the pharmacy have listed on their end? Received call from [facility] in [place]. They have received patient's script for hydrochlorothiazide today and report they have an allergy to loop diuretics for patient. This nurse attempted to reach patient to verify allergies and no answer. Attempted to contact spouse and voicemail is full. Please advise [facility]. PH: [phone] Thank you. documented in this encounter [facility] 02-15-2022 Miscellaneous Notes Pts son called and is notified of providers results and instructions. He voices understanding, and will let his dad know. Molly Treadwell RN Called and left a voicemail for the Patient to call back and ask for a nurse to receive the providers message. Molly Treadwell RN INR therapeutic. Continue current coumadin dosage and follow up in 1 weeks. Current INR: 3.0 02/14/2022 Current dose of coumadin is: 10 mg Mon, Wed and 7.5 mg all other days. Recheck in 1 week. Previous INR (date and result): 1.7 02/04/2022 Additional Clinical Information or narrative: no documented in this encounter [facility] 02-15-2022 Miscellaneous Notes Pt called and is notified of providers results and instructions. Pt voices understanding. Molly Treadwell RN Patient's repeat potassium level remains high. This is likely a side effect of his lisinopril. Recommend lowering his lisinopril dosage to 20 mg daily and adding HCTZ 12.5 mg daily to help keep BP and potassium level down. Will need NV to recheck BP in 2 weeks and will need repeat labs at that time as well. documented in this encounter [facility] 02-14-2022 Miscellaneous Notes Addended by: ENDER ROLLINS on: 02/14/2022 01:27 PM Modules accepted: Orders Order approved. Addended by: YVONNE BARTLETT MA on: 02/14/2022 12:26 PM Modules accepted: Orders Dr. Rollins pended order to standing so expires in one year Yvonne Bartlett Ma Patient is here for labs but no order in for PT/INR. Not wanting to get poked twice if not needed. documented in this encounter [facility] 02-11-2022 Miscellaneous Notes Spoke with patient who verbalizes understanding of providers message. He states he will come in tomorrow, 02/12/22, to get the potassium labs re-drawn. MARILEE Aguirre Patient telephoned. Message left to call back for update. Yamini Beyer LPN Normal labs aside from high potassium level. Recommend repeating labs in the next 2-3 days to rule out lab error. Avoid high potassium foods while awaiting results. documented in this encounter [facility] 02-05-2022 Miscellaneous Notes Patient was notified tracker updated Yvonne Bartlett Ma INR low. Increase coumadin to 10 mg Fri, Fri and 7.5 mg all other days. Recheck in 1 week. Last INR: PT INR 1.7 02/04/2022 Current dose of coumadin is: 10 mg Mon, 7.5 mg all other days. Previous INR (date and result): 2.4 on 09/26/21 Mayuri Barker Ma documented in this encounter [facility] 02-04-2022 History of Present illness Narrative Chief Complaint Patient presents with: Follow Up: patient has put off f/u fear of COVID Medication Problem: wants coumadin refilled but has not been checking his INR- he stated probably hasn't checked in over a year HPI Juli Shook is a 76 year old male who presents here today for Above Complaints. Patient with history of multiple DVT and PE with hypercoagulable state and is supposed to be on coumadin press tender long goods. Has not been compliant with getting his INR checked. Last was 09/26/21 with INR 2.4. Today, states that he is taking 10 mg coumadin on Friday and 7.5 mg all other days without bleeding/bruising symptoms. Stressed importance of checking INR as directed. Following up with Dr. Leong for mild memory impairment/dementia and history of intracranial hemorrhage. At last OV, they recommended he continue coumadin, stay off ASA, and reviewed MRI from 09/2021 which only showed microvascular changes. Follow up in 5 months for repeat evaluation and possibly start Aricept. CAD: No changes to regimen at last OV with Dr. Bower's office in the last month. BP well controlled on current regimen. PHQ-2 / Depression screen He in the past two weeks denies having felt down, depressed, hopeless or with little interest or pleasure in doing things. Past medical history, appointments, medications, allergies reviewed. Previous Medical History PAST MEDICAL HISTORY Diagnosis Date Colon polyps Dr. Avalos Coronary artery disease Dr. Bower DVT (deep venous thrombosis) ([facility]) multiple Dyslipidemia Factor V Leiden (HCC) def Hypercoagulable state (HCC) possible factor V homozygous Hypertension Intracranial aneurysm Intracranial hemorrhage ([facility]) 2015, 12/2018 Dr. Daniel Pulmonary embolism ([facility]) S/P IVC filter 2016 Previous Surgical History PAST SURGICAL HISTORY Procedure Laterality Date COLONOSCOPY Last done age 69 or 70 with polyps. told he would not need follow up IVC FILTER PLACEMENT/REMOVAL 2016 STENT 1999, 2001 Cardiac x2 THORACENTESIS 2003 TONSILLECTOMY AND ADENOIDECTOMY HX childhood Family History FAMILY HISTORY Problem Relation Age of Onset Hypertension Father other (hypercoagulable state) Father other (hypercoagulable state) Other other (hypercoagulable state) Grandchild Thyroid Daughter other (factor v) Son Patient Allergies ALLERGIES Allergen Reactions Sulfa (Sulfonamide * Swelling Heparin Other: See Comments Patient states no reactions. Integrilin [Eptifib* Other: See Comments Patient states no reaction. Current Medications Current Outpatient Medications on File Prior to Visit Medication Sig busPIRone (BUSPAR) 5 mg tablet Take 5 mg by mouth twice daily. amLODIPine (NORVASC) 5 mg tablet Take 1 tablet by mouth once daily. warfarin (COUMADIN) 5 mg tablet 10 mg on Mondays and 7.5 mg all other other days or as directed atorvastatin (LIPITOR) 40 mg tablet Take 1 tablet by mouth daily at bedtime. lisinopril (ZESTRIL, PRINIVIL) 40 mg tablet Take 1 tablet by mouth once daily. No current facility-administered medications on file prior to visit. Social History Social History Tobacco Use Smoking status: Current Every Day Smoker Years: 60.00 Last attempt to quit: 02/03/2019 Years since quittin.0 Smokeless tobacco: Never Used Vaping Use Vaping Use: Never used Substance Use Topics Alcohol use: Yes Alcohol/week: 17.5 standard drinks Types: 7 Cans of Beer (12oz) per week Drug use: Never Review of Symptoms REVIEW OF SYSTEMS GENERAL: No weight loss, malaise or fevers RESPIRATORY: Negative for cough, hemoptysis, wheezing, COPD, dyspnea or shortness of breath CARDIOVASCULAR: Negative for chest pain, leg swelling, hypertension, CHF or palpitations GI: No nausea, vomiting, or diarrhea SKIN: Negative for lesions, rash, and itching EXAM: BP 116/74 Pulse 65 Resp 18 Wt 66.9 kg (147 lb 8 oz) SpO2 97% BMI 20.57 kg/m General Appearance: Well appearing, alert, in no acute distress, well-hydrated, well nourished.. Skin: Skin color, texture, turgor normal, no suspicious rashes or lesions. Lungs: Lungs clear to auscultation. No wheezing, rhonchi, rales.. Heart: RRR without murmur, gallop, or rubs. No ectopy. Abdomen: Normal abdominal exam, Abdomen soft, non-tender. Bowel sounds normal. No masses, organomegaly. Extremities: No deformities, edema, skin discoloration, clubbing or cyanosis. Good capillary refill. . Health Maintenance List SHINGRIX VACCINE(1 of 2) Never done DTAP,TDAP,TD(1 - Tdap) due on 05/06/2019 DEPRESSION SCREENING due on 02/26/2020 ADVANCE DIRECTIVE DISCUSSION Never done LDL CHOLESTEROL due on 12/08/2021 ANNUAL PCP TEAM CHRONIC DISEASE VISIT due on 06/08/2022 BP CONTROLLED (<130/80) due on 06/08/2022 INFLUENZA(Season Ended) due on 06/27/2022 DIABETES SCREEN due on 06/11/2024 HEPATITIS C SCREENING Completed PNEUMOVAX AGE 65 AND OVER WITH 5YR LOOKBACK Completed COVID-19 VACCINE Completed MENINGOCOCCAL CONJUGATE Aged Out Data reviewed Component Latest Ref Rng & Units 08/24/2021 Triglyceride 149 mg/dL 103 Cholesterol, Total 0 - 200 MG/DL 151 HDC-L 41 mg/dL 75 (A) LDL Chol, calculated 130 MG/DL 55 ASSESSMENT/PLAN: 1. Coronary artery disease involving [place] coronary artery of [place] heart without angina pectoris - ICD9: 414.01, ICD10: I25.10 (primary diagnosis) Stable on current regimen. Keep scheduled f/u with cardiology. 2. Primary hypertension - ICD9: 401.9, ICD10: I10 - good control - Continue current medication(s) - Encouraged dietary sodium restriction/DASH diet - Recommended regular aerobic exercise. - Reviewed risks of HTN and principles of treatment - Goal of BP <130/80 3. Pure hypercholesterolemia - ICD9: 272.0, ICD10: E78.00 Controlled on current regimen. 4. Intracranial hemorrhage (HCC) - ICD9: 432.9, ICD10: I62.9 History of intracranial hemorrhage without recurrent symptoms of bleed. May continue anticoagulation for hypercoagulable state. Recommend ER evaluation for any fall or head injury. 5. Hypercoagulable state (HCC) - ICD9: 289.81, ICD10: D68.59 Discussed importance of checking INR as directed. Discussed risks of clotting and bruising if not in optimal range. Will recheck INR today and call with results. - CBC - COMP METABOLIC PANEL - PROTHROMBIN TIME/PT 6. Memory impairment - ICD9: 780.93, ICD10: R41.[address]. Recommendations [address] Leong and keep 5 month f/u. Ender Rollins MD documented in this encounter [facility] 01-05-2019 History of Past i llness Narrative Problem Noted Date Resolved Date Acute intracranial hemorrhage 01/05/2019 documented as of this encounter (statuses as of 02/05/2022) [facility] History of Past illness Narrative* Problem Noted Date Resolved Date Acute intracranial hemorrhage 01/05/2019 documented as of this encounter (statuses as of 02/05/2022) [facility] History of Past illness Narrative* Problem Noted Date Resolved Date Acute intracranial hemorrhage 01/05/2019 documented as of this encounter (statuses as of 02/11/2022) [facility] History of Past illness Narrative* Problem Noted Date Resolved Date Acute intracranial hemorrhage 01/05/2019 documented as of this encounter (statuses as of 02/14/2022) [address] History of Past illness Narrative* Problem Noted Date Resolved Date Acute intracranial hemorrhage 01/05/2019 documented as of this encounter (statuses as of 02/15/2022) [address] History of Past illness Narrative* Problem Noted Date Resolved Date Acute intracranial hemorrhage 01/05/2019 documented as of this encounter (statuses as of 02/15/2022) [address] History of Past illness Narrative* Problem Noted Date Resolved Date Acute intracranial hemorrhage 01/05/2019 documented as of this encounter (statuses as of 04/26/2022) [address] History of Past illness Narrative* Problem Noted Date Resolved Date Acute intracranial hemorrhage 01/05/2019 documented as of this encounter (statuses as of 05/01/2022) [address] History of Past illness Narrative* Problem Noted Date Resolved Date Acute intracranial hemorrhage 01/05/2019 documented as of this encounter (statuses as of 05/08/2022) [address] History of Past illness Narrative* Problem Noted Date Resolved Date Acute intracranial hemorrhage 01/05/2019 documented as of this encounter (statuses as of 05/15/2022) [address] History of Past illness Narrative* Problem Noted Date Resolved Date Acute intracranial hemorrhage 01/05/2019 documented as of this encounter (statuses as of 05/22/2022) [address] History of Past illness Narrative* Problem Noted Date Resolved Date Acute intracranial hemorrhage 01/05/2019 documented as of this encounter (statuses as of 06/19/2022) [address] History of Past illness Narrative* Problem Noted Date Resolved Date Acute intracranial hemorrhage 01/05/2019 documented as of this encounter (statuses as of 07/17/2022) [address] History of Past illness Narrative* Problem Noted Date Resolved Date Acute intracranial hemorrhage 01/05/2019 documented as of this encounter (statuses as of 08/21/2022) [address] History of Past illness Narrative* Problem Noted Date Resolved Date Acute intracranial hemorrhage 01/05/2019 documented as of this encounter (statuses as of 08/22/2022) [address] History of Past illness Narrative* Problem Noted Date Resolved Date Acute intracranial hemorrhage 01/05/2019 documented as of this encounter (statuses as of 08/26/2022) [address] History of Past illness Narrative* Problem Noted Date Resolved Date Acute intracranial hemorrhage 01/05/2019 documented as of this encounter (statuses as of 09/18/2022) [address] History of Past illness Narrative* Problem Noted Date Resolved Date Acute intracranial hemorrhage 01/05/2019 documented as of this encounter (statuses as of 10/17/2022) [address] History of Past illness Narrative* Problem Noted Date Resolved Date Acute intracranial hemorrhage 01/05/2019 documented as of this encounter (statuses as of 10/21/2022) [address] History of Past illness Narrative* Problem Noted Date Resolved Date Acute intracranial hemorrhage 01/05/2019 documented as of this encounter (statuses as of 11/20/2022) [address] History of Past illness Narrative* Problem Noted Date Resolved Date Acute intracranial hemorrhage 01/05/2019 documented as of this encounter (statuses as of 12/10/2022) [address] History of Past illness Narrative* Problem Noted Date Resolved Date Acute intracranial hemorrhage 01/05/2019 documented as of this encounter (statuses as of 12/26/2022) [address] History of Past illness Narrative* Problem Noted Date Resolved Date Acute intracranial hemorrhage 01/05/2019 documented as of this encounter (statuses as of 01/07/2023) [address] History of Past illness Narrative* Problem Noted Date Resolved Date Acute intracranial hemorrhage 01/05/2019 documented as of this encounter (statuses as of 01/17/2023) [address] History of Past illness Narrative* Problem Noted Date Resolved Date Acute intracranial hemorrhage 01/05/2019 documented as of this encounter (statuses as of 01/23/2023) [address] History of Past illness Narrative* Problem Noted Date Resolved Date Acute intracranial hemorrhage 01/05/2019 documented as of this encounter (statuses as of 01/24/2023) [address] History of Past illness Narrative* Problem Noted Date Resolved Date Acute intracranial hemorrhage 01/05/2019 documented as of this encounter (statuses as of 01/27/2023) [address] History of Past illness Narrative* Problem Noted Date Resolved Date Acute intracranial hemorrhage 01/05/2019 documented as of this encounter (statuses as of 01/27/2023) [address] History of Past illness Narrative* Problem Noted Date Resolved Date Acute intracranial hemorrhage 01/05/2019 documented as of this encounter (statuses as of 01/29/2023) [address] History of Past illness Narrative* Problem Noted Date Resolved Date Acute intracranial hemorrhage 01/05/2019 documented as of this encounter (statuses as of 01/29/2023) [address] History of Past illness Narrative* Problem Noted Date Resolved Date Acute intracranial hemorrhage 01/05/2019 documented as of this encounter (statuses as of 02/01/2023) [address] History of Past illness Narrative* Problem Noted Date Resolved Date Acute intracranial hemorrhage 01/05/2019 documented as of this encounter (statuses as of 02/24/2023) [address] History of Past illness Narrative* Problem Noted Date Resolved Date Acute intracranial hemorrhage 01/05/2019 documented as of this encounter (statuses as of 03/05/2023) [address] History of Past illness Narrative* Problem Noted Date Resolved Date Acute intracranial hemorrhage 01/05/2019 documented as of this encounter (statuses as of 04/25/2023) [address] History of Past illness Narrative* Problem Noted Date Diagnosed Date Resolved Date Acute intracranial hemorrhage 01/05/2019 01/07/2019 documented as of this encounter (statuses as of 07/10/2023) [facility] History of Past illness Narrative* Problem Noted Date Diagnosed Date Resolved Date Acute intracranial hemorrhage 01/05/2019 01/07/2019 documented as of this encounter (statuses as of 08/02/2023) [facility] History of Past illness Narrative* Problem Noted Date Diagnosed Date Resolved Date Acute intracranial hemorrhage 01/05/2019 01/07/2019 documented as of this encounter (statuses as of 01/14/2024) [facility] Diagnosis Coronary artery disease involving [place] coronary artery of [place] heart without angina pectoris- Primary Primary hypertension Unspecified essential hypertension Pure hypercholesterolemia Intracranial hemorrhage (HCC) Unspecified intracranial hemorrhage Hypercoagulable state (HCC) Primary hypercoagulable state Memory impairment Memory loss [facility] Diagnosis Hyperkalemia- Primary Hyperpotassemia [facility] Diagnosis Acute deep vein thrombosis (DVT) of proximal vein of lower extremity, unspecified laterality (HCC)- Primary [facility] Primary hypertension Unspecified essential [facility] Acute deep vein thrombosis (DVT) of proximal vein of lower extremity, unspecified laterality (HCC)- Primary [facility] Diagnosis Dementia without behavioral disturbance (HCC)- Primary Dementia, unspecified, without behavioral disturbance Skin lesion of right ear Actinic keratoses Actinic keratosis Seborrheic keratoses Other seborrheic keratosis Coronary artery disease involving [place] coronary artery of [place] heart without angina pectoris Primary hypertension Unspecified essential hypertension Pure hypercholesterolemia Hypercoagulable state (HCC) Primary hypercoagulable state Chronic anticoagulation Long-term (current) use of anticoagulants [facility] Diagnosis Assistance with transportation- Primary [facility] Diagnosis Nontraumatic intracerebral hemorrhage, unspecified cerebral location, unspecified laterality- Primary Factor V Leiden mutation Primary hypercoagulable state Dural venous sinus thrombosis Phlebitis and thrombophlebitis of intracranial venous sinuses Urinary retention Retention of urine, unspecified 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 Intracranial hemorrhage Unspecified intracranial hemorrhage Electrolyte disorder (K, Cl, or Na) Electrolyte and fluid disorders not elsewhere classified [facility] History of venous thromboembolism- Primary Personal history of venous thrombosis and embolism Factor V Leiden mutation Primary hypercoagulable state Dural venous sinus thrombosis Phlebitis and thrombophlebitis of intracranial venous sinuses History of intracranial hemorrhage Personal history of other diseases of circulatory system Blood in stool [facility] Diagnosis Urine retention- Primary Retention of urine, unspecified BPH with obstruction/lower urinary tract symptoms Hypertrophy of prostate with urinary obstruction and other lower urinary tract symptoms (LUTS) [facility] Diagnosis Intracranial hemorrhage (HCC)- Primary Unspecified intracranial hemorrhage Thyroid nodule Nontoxic uninodular goiter Cough in adult patient Hypercoagulable state (HCC) Primary hypercoagulable state Factor 5 Leiden mutation, heterozygous (HCC) Primary hypercoagulable state Memory impairment Memory loss Primary hypertension Unspecified essential hypertension Tobacco use Tobacco use disorder Acute urinary retention Other specified retention of urine [facility] Diagnosis BPH with obstruction/lower urinary tract symptoms- Primary Hypertrophy of prostate with urinary obstruction and other lower urinary tract symptoms (LUTS) Urine retention Retention of urine, unspecified [facility] Diagnosis Cough in adult [facility] Thyroid nodule Nontoxic uninodular goiter [facility] Primary hypertension Unspecified essential hypertension Pure hypercholesterolemia [facility] Diagnosis BPH with obstruction/lower urinary tract symptoms- Primary Hypertrophy of prostate with urinary obstruction and other lower urinary tract symptoms (LUTS) [facility] Diagnosis Primary hypertension- Primary Unspecified essential hypertension Encounter for immunization Need for other specified prophylactic vaccination against single bacterial disease Coronary artery disease involving [place] coronary artery of [place] heart without angina pectoris Memory impairment Memory loss Tobacco use Tobacco use disorder Hypercoagulable state (HCC) Primary hypercoagulable state Chronic obstructive pulmonary disease, unspecified COPD type (HCC) Pure hypercholesterolemia Benign prostatic hyperplasia, unspecified whether lower urinary tract symptoms present Upper back pain [facility] Diagnosis Primary hypertension Unspecified essential hypertension [facility] Diagnosis Primary hypertension Unspecified essential hypertension Pure hypercholesterolemia [facility] Diagnosis SHON (generalized anxiety disorder)- Primary Generalized anxiety disorder Alzheimer's dementia with anxiety, unspecified dementia severity, unspecified timing of dementia onset (HCC) Weight loss Loss of weight [facility] Diagnosis SHON (generalized anxiety disorder)- Primary Generalized anxiety disorder Alzheimer's dementia with anxiety, unspecified dementia severity, unspecified timing of dementia onset (HCC) Weight loss Loss of weight Encounter for immunization Need for other specified prophylactic vaccination against single bacterial disease [facility] Diagnosis Unintentional weight loss- Primary Loss of weight Alzheimer's dementia with anxiety, unspecified dementia severity, unspecified timing of dementia onset (HCC) Cellulitis of skin Cellulitis and abscess of unspecified site Skin lesion Unspecified disorder of skin and subcutaneous tissue Hypotension, unspecified hypotension type Bradycardia Other specified cardiac dysrhythmias Chronic obstructive pulmonary disease, unspecified COPD type (HCC) Unintentional weight loss Loss of weight [facility] Diagnosis Cellulitis of skin- Primary Cellulitis and abscess of unspecified site Skin lesion Unspecified disorder of skin and subcutaneous tissue Unintentional weight loss Loss of weight Underweight SHON (generalized anxiety disorder) Generalized anxiety disorder [facility] Diagnosis Left-sided nontraumatic intracerebral hemorrhage (HCC)- Primary Intraparenchymal hemorrhage of brain (HCC) Intracerebral hemorrhage Essential hypertension Unspecified essential hypertension Coronary artery disease involving [place] coronary artery without angina pectoris Pure hypercholesterolemia Factor 5 Leiden mutation, heterozygous (HCC) Primary hypercoagulable state Acute intracranial hemorrhage (HCC) Unspecified intracranial hemorrhage Fever of unknown origin Fever, unspecified Agitation Other and unspecified special symptom or syndrome, not elsewhere classified Dysphagia Dysphagia, unspecified Unintentional weight loss Loss of weight [facility] Diagnosis Left-sided nontraumatic intracerebral hemorrhage (HCC)- Primary Intraparenchymal hemorrhage of brain (HCC) Intracerebral hemorrhage Essential hypertension Unspecified essential hypertension Coronary artery disease involving [place] coronary artery without angina pectoris Pure hypercholesterolemia Factor 5 Leiden mutation, heterozygous (HCC) Primary hypercoagulable state Acute intracranial hemorrhage (HCC) Unspecified intracranial hemorrhage Fever of unknown origin Fever, unspecified Agitation Other and unspecified special symptom or syndrome, not elsewhere classified Dysphagia Dysphagia, unspecified Weight loss Loss of weight [facility]* Diagnosis Left-sided nontraumatic intracerebral hemorrhage (HCC)- Primary Intraparenchymal hemorrhage of brain (HCC) Intracerebral hemorrhage Essential hypertension Unspecified essential hypertension Coronary artery disease involving [place] coronary artery without angina pectoris Pure hypercholesterolemia Factor 5 Leiden mutation, heterozygous (HCC) Primary hypercoagulable state Acute intracranial hemorrhage (HCC) Unspecified intracranial hemorrhage Fever of unknown origin Fever, unspecified Agitation Other and unspecified special symptom or syndrome, not elsewhere classified Dysphagia Dysphagia, unspecified Chronic obstructive pulmonary disease, unspecified COPD type (HCC) documented in this encounter [facility]* Diagnosis Left-sided nontraumatic intracerebral hemorrhage (HCC)- Primary Intraparenchymal hemorrhage of brain (HCC) Intracerebral hemorrhage Essential hypertension Unspecified essential hypertension Coronary artery disease involving [place] coronary artery without angina pectoris Pure hypercholesterolemia Factor 5 Leiden mutation, heterozygous (HCC) Primary hypercoagulable state Acute intracranial hemorrhage (HCC) Unspecified intracranial hemorrhage Fever of unknown origin Fever, unspecified Agitation Other and unspecified special symptom or syndrome, not elsewhere classified Dysphagia Dysphagia, unspecified Cough in adult patient [facility] Diagnosis Left-sided nontraumatic intracerebral hemorrhage (HCC)- Primary Intraparenchymal hemorrhage of brain (HCC) Intracerebral hemorrhage Essential hypertension Unspecified essential hypertension Coronary artery disease involving [place] coronary artery without angina pectoris Pure hypercholesterolemia Factor 5 Leiden mutation, heterozygous (HCC) Primary hypercoagulable state Acute intracranial hemorrhage (HCC) Unspecified intracranial hemorrhage Fever of unknown origin Fever, unspecified Agitation Other and unspecified special symptom or syndrome, not elsewhere classified Dysphagia Dysphagia, unspecified Other specified disorders of kidney and ureter- Primary Renal mass Unspecified disorder of kidney and ureter documented in this encounter [facility] for referral (narrative)* Consultation (Routine) - New Request Specialty Diagnoses / Procedures Referred By Rajat herman Referred To Contact Urology Diagnoses Urinary retention Trini Velasco, MAIL DISTRIBUTION SCHEME EXAMINER-[employer]ONWORKER [employer] [address] [place] [address] Referral ID Status Reason Start Date Expiration Date V isits Requested Visits Authorized [id number] New Request 11/29/2022 12/24/2023 1 1 * Transfer of Care (Routine) - New Request Specialty Diagnoses / Procedures Referred By Contac t Referred To Contact Social Work Diagnoses Nontraumatic intracerebral hemorrhage, unspecified cerebral location, unspecified laterality Laney Carcamo APRN-IRONWORKER [employer] [address] [place] [address] Referral ID Status Reason Start Date Expiration Date V isits Requested Visits Authorized [id number] New Request 11/28/2022 12/23/2023 1 1 * MRI/CAT Scan (Routine) - New Request Specialty Diagnoses / Procedures Referred By Contac t Referred To Contact Diagnoses Nontraumatic intracerebral hemorrhage, unspecified cerebral location, unspecified laterality Procedures MRI BRAIN WITH AND WITHOUT CONTRAST NC MRI BRAIN COMBO Johnnie Bhandari APRN-[employer]WORKER [employer] [address] [place] [address] Referral ID Status Reason Start Date Expiration Date V isits Requested Visits Authorized [id number] New Request 11/21/2022 12/16/2023 1 1 * Consultation (Routine) - New Request Specialty Diagnoses / Procedures Referred By Contac t Referred To Contact Neurology Diagnoses Nontraumatic intracerebral hemorrhage, unspecified cerebral location, unspecified laterality Johnnie Bhandari APRN-MENDEZ [address] [place] [address] Referral ID Status Reason Start Date Expiration Date V isits Requested Visits Authorized [id number] New Request 11/21/2022 12/16/2023 1 1 * Consultation (Routine) - New Request Specialty Diagnoses / Procedures Referred By Contac t Referred To Contact Hematology Diagnoses Factor V Leiden mutation Dural venous sinus thrombosis Marcelino Field APRN-CNP [address] [place] [address] Mahesh Jones MD [address] [place] [address] [place] [address] Referral ID Status Reason Start Date Expiration Date V isits Requested Visits Authorized [id number] New Request 11/21/2022 12/16/2023 1 1 * (Routine) Specialty Diagnoses / Procedures Referred By Rajat herman Referred To Contact Chris Contreras MD [address] [place] [address] Referral ID Status Reason Start Date Expiration Date Visits Re quested Visits [facility]ized [facility]* Auth/Cert Specialty Diagnoses / Procedures Referred By Rajat herman Referred To Contact Diagnoses Nontraumatic intracerebral hemorrhage, unspecified cerebral location, unspecified laterality Hemorrhagic CVA Ulises Garcia MD [address] [place] [address] [facility] [address] [place] [address] Referral ID Status Reason Start Date Expiration Date Visits Re quested Visits Authorized [id number] 1 1 [facility] Summary Purpose Family History No Family History Records FoundNo Family History Records FoundNo Family History Records FoundNo Family History Records FoundNo Family History Records Found Advance Directives No Advanced Directives Records FoundDocuments on File Type Date Recorded 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 They are in agreement with this code status. Reason for Referral Specialty Diagnoses / Procedures Referred By Contac t Referred To Contact Dermatology Diagnoses Actinic keratoses Skin lesion of right ear Procedures CONSULT TO DERMATOLOGY Enedr Rollins MD [address] [place] [address] Referral ID Status Reason Start Date Expiration Date Visits Requested Visits Authorized [id number] Ref Not Required PCP Requested Referral 08/21/2023 1 1 Specialty Diagnoses / Procedures Referred By Contac t Referred To Contact Diagnoses History of venous thromboembolism Procedures FACTOR V + PROTHROMBIN ANALYSIS Sprockel, Sharita C, PA-C [address] [address] Referral ID Status Reason Start Date Expiration Date V isits Requested Visits Authorized [id number] New Request 12/23/2022 01/17/2024 1 1 Specialty Diagnoses / Procedures Referred By Contac t Referred To Contact Diagnoses History of venous thromboembolism Procedures CT PE STUDY NC CT ANGIO, CHEST (NON-CORON), COMBO, INCL IMG PROC Sprockel, Sharita C, PA-C [address] [phone] Referral ID Status Reason Start Date Expiration Date V isits Requested Visits Authorized [id number] New Request 12/23/2022 01/17/2024 1 1 Specialty Diagnoses / Procedures Referred By Contac t Referred To Contact General Surgery Diagnoses Thyroid nodule Procedures CONSULT TO GENERAL SURGERY OFFICE/OUTPATIENT NEW HIGH MDM 60-74 MINUTES Ender Rollins MD [address] [place] [address] Referral ID Status Reason Start Date Expiration Date Visits Requested Visits Authorized [id number] Authorized PCP Requested Referral 01/22/2023 01/22/2024 1 1 Specialty Diagnoses / Procedures Referred By Contac t Referred To Contact [facility] Diagnoses Cough in adult patient Procedures SPIROMETRY - BASELINE AND POST DILATOR BRNCDILAT RSPSE SPMTRY PRE&POST-BRNCDILAT ADMN Ender Rollins MD [address] [place] [address] [facility] [address] [address] Referral ID Status Reason Start Date Expiration Date Visits Requested Visits Authorized [id number] Authorized Auto-Generat ed Referral 01/22/2023 02/21/2024 1 1 Specialty Diagnoses / Procedures Referred By Contac t Referred To Contact Diagnoses Thyroid nodule Procedures CONSULT TO ENDOCRINE SURGERY OFFICE/OUTPATIENT [facility] 60-[place] [address] [place] [id number] Referral ID Status Reason Start Date Expiration Date Visits Requested Visits Authorized [id number] Authorized PCP Requested Referral 01/22/2023 01/22/2024 1 1 Specialty Diagnoses / Procedures Referred By Contac t Referred To Contact Ender Rollins MD [address] [place] [id number] Referral ID Status Reason Start Date Expiration Date V isits Requested Visits Authorized [id number] Authorized 01/28/2023 01/28/2023 1 1 Specialty Diagnoses / Procedures Referred By Contac t Referred To Contact Shantel Chadwick APRN.CNP [address] [place] [address] Referral ID Status Reason Start Date Expiration Date Visits Re quested Visits Authorized [id number] Closed 1 1 Referral ID Status Reason Start Date Expiration Date V isits Requested Visits Authorized [id number] Pending Review 1 1 Specialty Diagnoses / Procedures Referred By Contac t Referred To Contact General Surgery Diagnoses Skin lesion Procedures CONSULT TO GENERAL SURGERY OFFICE/OUTPATIENT [facility] 60 MINUTES Ender Rollins MD [address] [place] [phone] Referral ID Status Reason Start Date Expiration Date Visits Requested Visits Authorized [id number] Authorized PCP Requested Referral 05/11/2024 05/11/2025 1 1 Specialty Diagnoses / Procedures Referred By Rajat herman Referred To Contact CT IMAGING Diagnoses Other specified disorders of kidney and ureter Procedures CT KIDNEY WO/W IVCON CT ABDOMEN W & [place] [address] [place] [address] [place] [address] Referral ID Status Reason Start Date Expiration Date Visits Requested Visits Authorized [id number] Authorized Auto-Generat ed Referral 01/17/2025 08/19/2025 1 1 Additional Source Comments (unrecognized sect ion and content) No Status Records FoundNo Status Records FoundNo Status Records FoundNo Status Records FoundNo Status Records Found INFORMATION SOURCE (unrecogn ized section and content) DATE CREATED AUTHOR 07/19/2020 [facility] DATE CREATED AUTHOR AUTHOR'S ORGANIZ ATION 10/19/2022 [facility] DATE CREATED AUTHOR AUTHOR'S ORGANIZ ATION 12/12/2022 [facility] DATE CREATED AUTHOR AUTHOR'S ORGANIZ ATION 02/02/2023 [facility] DATE CREATED AUTHOR AUTHOR'S ORGANIZ ATION 07/22/2024 [facility] Source Comments (unrecognize d section and content) In the event this informatio n is protected by the Federal Confidentiality of Alcohol and Drug Abuse Patient Records regulations: The Federal rules restrict any use of the information to criminally investigate or prosecute any alcohol or drug abuse patient.[facility] the event this information is protected by the Federal Confidentiality of Alcohol and Drug Abuse Patient Records regulations: The Federal rules restrict any use of the information to criminally investigate or prosecute any alcohol or drug abuse patient.[facility] the event this information is protected by the Federal Confidentiality of Alcohol and Drug Abuse Patient Records regulations: The Federal rules restrict any use of the information to criminally investigate or prosecute any alcohol or drug abuse patient.[facility] the event this information is protected by the Federal Confidentiality of Alcohol and Drug Abuse Patient Records regulations: The Federal rules restrict any use of the information to criminally investigate or prosecute any alcohol or drug abuse patient.[facility] the event this information is protected by the Federal Confidentiality of Alcohol and Drug Abuse Patient Records regulations: The Federal rules restrict any use of the information to criminally investigate or prosecute any alcohol or drug abuse patient.[facility] the event this information is protected by the Federal Confidentiality of Alcohol and Drug Abuse Patient Records regulations: The Federal rules restrict any use of the information to criminally investigate or prosecute any alcohol or drug abuse patient.[facility] the event this information is protected by the Federal Confidentiality of Alcohol and Drug Abuse Patient Records regulations: The Federal rules restrict any use of the information to criminally investigate or prosecute any alcohol or drug abuse patient.[facility] the event this information is protected by the Federal Confidentiality of Alcohol and Drug Abuse Patient Records regulations: The Federal rules restrict any use of the information to criminally investigate or prosecute any alcohol or drug abuse patient.[facility] the event this information is protected by the Federal Confidentiality of Alcohol and Drug Abuse Patient Records regulations: The Federal rules restrict any use of the information to criminally investigate or prosecute any alcohol or drug abuse patient.[facility] the event this information is protected by the Federal Confidentiality of Alcohol and Drug Abuse Patient Records regulations: The Federal rules restrict any use of the information to criminally investigate or prosecute any alcohol or drug abuse patient.[facility] the event this information is protected by the Federal Confidentiality of Alcohol and Drug Abuse Patient Records regulations: The Federal rules restrict any use of the information to criminally investigate or prosecute any alcohol or drug abuse patient.[facility] the event this information is protected by the Federal Confidentiality of Alcohol and Drug Abuse Patient Records regulations: The Federal rules restrict any use of the information to criminally investigate or prosecute any alcohol or drug abuse patient.[facility] Center[facility] the event this information is protected by the Federal Confidentiality of Alcohol and Drug Abuse Patient Records regulations: The Federal rules restrict any use of the information to criminally investigate or prosecute any alcohol or drug abuse patient.[facility] Center[facility] the event this information is protected by the Federal Confidentiality of Alcohol and Drug Abuse Patient Records regulations: The Federal rules restrict any use of the information to criminally investigate or prosecute any alcohol or drug abuse patient.[facility] Center[facility] the event this information is protected by the Federal Confidentiality of Alcohol and Drug Abuse Patient Records regulations: The Federal rules restrict any use of the information to criminally investigate or prosecute any alcohol or drug abuse patient.[facility] Center[facility] the event this information is protected by the Federal Confidentiality of Alcohol and Drug Abuse Patient Records regulations: The Federal rules restrict any use of the information to criminally investigate or prosecute any alcohol or drug abuse patient.[facility] CenterIn the event this information is protected by the Federal Confidentiality of Alcohol and Drug Abuse Patient Records regulations: The Federal rules restrict any use of the information to criminally investigate or prosecute any alcohol or drug abuse patient.[facility] CenterIn the event this information is protected by the Federal Confidentiality of Alcohol and Drug Abuse Patient Records regulations: The Federal rules restrict any use of the information to criminally investigate or prosecute any alcohol or drug abuse patient.[facility] CenterIn the event this information is protected by the Federal Confidentiality of Alcohol and Drug Abuse Patient Records regulations: The Federal rules restrict any use of the information to criminally investigate or prosecute any alcohol or drug abuse patient.[facility] CenterIn the event this information is protected by the Federal Confidentiality of Alcohol and Drug Abuse Patient Records regulations: The Federal rules restrict any use of the information to criminally investigate or prosecute any alcohol or drug abuse patient.[facility] CenterIn the event this information is protected by the Federal Confidentiality of Alcohol and Drug Abuse Patient Records regulations: The Federal rules restrict any use of the information to criminally investigate or prosecute any alcohol or drug abuse patient.[facility] CenterIn the event this information is protected by the Federal Confidentiality of Alcohol and Drug Abuse Patient Records regulations: The Federal rules restrict any use of the information to criminally investigate or prosecute any alcohol or drug abuse patient.[facility] CenterIn the event this information is protected by the Federal Confidentiality of Alcohol and Drug Abuse Patient Records regulations: The Federal rules restrict any use of the information to criminally investigate or prosecute any alcohol or drug abuse patient.[facility] CenterIn the event this information is protected by the Federal Confidentiality of Alcohol and Drug Abuse Patient Records regulations: The Federal rules restrict any use of the information to criminally investigate or prosecute any alcohol or drug abuse patient.[facility] CenterIn the event this information is protected by the Federal Confidentiality of Alcohol and Drug Abuse Patient Records regulations: The Federal rules restrict any use of the information to criminally investigate or prosecute any alcohol or drug abuse patient.[facility] CenterIn the event this information is protected by the Federal Confidentiality of Alcohol and Drug Abuse Patient Records regulations: The Federal rules restrict any use of the information to criminally investigate or prosecute any alcohol or drug abuse patient.[facility] CenterIn the event this information is protected by the Federal Confidentiality of Alcohol and Drug Abuse Patient Records regulations: The Federal rules restrict any use of the information to criminally investigate or prosecute any alcohol or drug abuse patient.[facility] CenterIn the event this information is protected by the Federal Confidentiality of Alcohol and Drug Abuse Patient Records regulations: The Federal rules restrict any use of the information to criminally investigate or prosecute any alcohol or drug abuse patient.[facility] CenterIn the event this information is protected by the Federal Confidentiality of Alcohol and Drug Abuse Patient Records regulations: The Federal rules restrict any use of the information to criminally investigate or prosecute any alcohol or drug abuse patient.[facility] CenterIn the event this information is protected by the Federal Confidentiality of Alcohol and Drug Abuse Patient Records regulations: The Federal rules restrict any use of the information to criminally investigate or prosecute any alcohol or drug abuse patient.[facility] CenterIn the event this information is protected by the Federal Confidentiality of Alcohol and Drug Abuse Patient Records regulations: The Federal rules restrict any use of the information to criminally investigate or prosecute any alcohol or drug abuse patient.[facility] CenterIn the event this information is protected by the Federal Confidentiality of Alcohol and Drug Abuse Patient Records regulations: The Federal rules restrict any use of the information to criminally investigate or prosecute any alcohol or drug abuse patient.[facility] CenterIn the event this information is protected by the Federal Confidentiality of Alcohol and Drug Abuse Patient Records regulations: The Federal rules restrict any use of the information to criminally investigate or prosecute any alcohol or drug abuse patient.[facility] CenterIn the event this information is protected by the Federal Confidentiality of Alcohol and Drug Abuse Patient Records regulations: The Federal rules restrict any use of the information to criminally investigate or prosecute any alcohol or drug abuse patient.[facility] CenterIn the event this information is protected by the Federal Confidentiality of Alcohol and Drug Abuse Patient Records regulations: The Federal rules restrict any use of the information to criminally investigate or prosecute any alcohol or drug abuse patient.[facility] CenterIn the event this information is protected by the Federal Confidentiality of Alcohol and Drug Abuse Patient Records regulations: The Federal rules restrict any use of the information to criminally investigate or prosecute any alcohol or drug abuse patient.[facility] CenterIn the event this information is protected by the Federal Confidentiality of Alcohol and Drug Abuse Patient Records regulations: The Federal rules restrict any use of the information to criminally investigate or prosecute any alcohol or drug abuse patient.[facility] the event this information is protected by the Federal Confidentiality of Alcohol and Drug Abuse Patient Records regulations: The Federal rules restrict any use of the information to criminally investigate or prosecute any alcohol or drug abuse patient.[facility] CenterIn the event this information is protected by the Federal Confidentiality of Alcohol and Drug Abuse Patient Records regulations: The Federal rules restrict any use of the information to criminally investigate or prosecute any alcohol or drug abuse patient.[facility] CenterIn the event this information is protected by the Federal Confidentiality of Alcohol and Drug Abuse Patient Records regulations: The Federal rules restrict any use of the information to criminally investigate or prosecute any alcohol or drug abuse patient.[facility] CenterIn the event this information is protected by the Federal Confidentiality of Alcohol and Drug Abuse Patient Records regulations: The Federal rules restrict any use of the information to criminally investigate or prosecute any alcohol or drug abuse patient.[facility] CenterIn the event this information is protected by the Federal Confidentiality of Alcohol and Drug Abuse Patient Records regulations: The Federal rules restrict any use of the information to criminally investigate or prosecute any alcohol or drug abuse patient.[facility] CenterIn the event this information is protected by the Federal Confidentiality of Alcohol and Drug Abuse Patient Records regulations: The Federal rules restrict any use of the information to criminally investigate or prosecute any alcohol or drug abuse patient.[facility] CenterIn the event this information is protected by the Federal Confidentiality of Alcohol and Drug Abuse Patient Records regulations: The Federal rules restrict any use of the information to criminally investigate or prosecute any alcohol or drug abuse patient.[facility] CenterIn the event this information is protected by the Federal Confidentiality of Alcohol and Drug Abuse Patient Records regulations: The Federal rules restrict any use of the information to criminally investigate or prosecute any alcohol or drug abuse patient.[facility] CenterIn the event this information is protected by the Federal Confidentiality of Alcohol and Drug Abuse Patient Records regulations: The Federal rules restrict any use of the information to criminally investigate or prosecute any alcohol or drug abuse patient.[facility] CenterIn the event this information is protected by the Federal Confidentiality of Alcohol and Drug Abuse Patient Records regulations: The Federal rules restrict any use of the information to criminally investigate or prosecute any alcohol or drug abuse patient.[facility] CenterIn the event this information is protected by the Federal Confidentiality of Alcohol and Drug Abuse Patient Records regulations: The Federal rules restrict any use of the information to criminally investigate or prosecute any alcohol or drug abuse patient.[facility] Reason for Visit (unrecogniz ed section and content) Reason Comments Anticoagulation Reason Comments Follow Up patient has put off f/u fear of COVID Medication Problem wants coumadin refil led but has not been checking his INR- he stated probably hasn't checked in over a year Reason Comments Results Reason Comments lab question for PCP Reason Comments Patient Update Reason Comments Opened In Error Reason Comments Reason Comments Follow Up Reason Onset Date Comments Anticoagulation 10/16/2022 Reason Comments Patient Question Reason Comments New Patient Factor V deficiency Specialty Diagnoses / Procedures Referred By Rajat t Referred To Contact Hematology Diagnoses Factor V Leiden mutation Dural venous sinus thrombosis Marcelino Field, MAIL DISTRIBUTION SCHEME EXAMINER-IRONWORKER [employer] [address] [place] [address] Mahesh Jones MD [address] [facility] [address] [phone] Referral ID Status Reason Start Date Expiration Date V isits Requested Visits Authorized [id number] New Request 11/21/2022 12/16/2023 1 1 Reason Comments Care Coordination [facility] Specialty Diagnoses / Procedures Referred By Niltonac t Referred To Contact Diagnoses History of venous thromboembolism Procedures CT PE STUDY NC CT ANGIO, CHEST (NON-CORON), COMBO, INCL IMG PROC Sprockel, Sharita C, PA-C [address] [facility] [address], [place] [address] Referral ID Status Reason Start Date Expiration Date V isits Requested Visits Authorized [id number] New Request 12/23/2022 01/17/2024 1 1 Reason Comments Consult Urinary Retention Reason Comments Appointment Specialty Diagnoses / Procedures Referred By Contac t Referred To Contact Diagnoses Nontraumatic intracerebral hemorrhage, unspecified cerebral location, unspecified laterality Procedures MRI BRAIN WITH AND WITHOUT CONTRAST NC MRI BRAIN Johnnie Richardson, MAIL DISTRIBUTION SCHEME EXAMINER-[employer]ONWORK[employer] [address] [place] [address] Referral ID Status Reason Start Date Expiration Date V isits Requested Visits Authorized [id number] New Request 11/21/2022 12/16/2023 1 1 Reason Comments Follow Up [facility] follow up Reason Comments Follow Up [facility] Reason Comments Spirometry Specialty Diagnoses / Procedures Referred By Rajat t Referred To Contact [facility] Diagnoses Cough in adult patient Procedures SPIROMETRY - BASELINE AND POST DILATOR BRNCDILAT RSPSE SPMTRY PRE&POST-BRNCDILAT ADMN Ender Rollins MD [address] [place] [address] [facility] [address] [place] [address] Referral ID Status Reason Start Date Expiration Date V isits Requested Visits Authorized [id number] Closed Auto-Generate d Referral 01/22/2023 02/21/2024 1 1 Reason Comments Results Reason Comments Consult Abnormal thyroid ult rasound. Specialty Diagnoses / Procedures Referred By Rajat t Referred To Contact General Surgery Diagnoses Thyroid nodule Procedures CONSULT TO GENERAL SURGERY OFFICE/OUTPATIENT NEW HIGH MDM 60-74 MINUTES Ender Rollins MD [address] [place] [address] Referral ID Status Reason Start Date Expiration Date V isits Requested Visits Authorized [id number] Closed PCP Requested Referral 01/22/2023 01/22/2024 1 1 Reason Onset Date Comments Refill Request 01/27/2023 Reason Comments Follow Up Benign Prostatic Hypertrophy Reason Comments F/U 3 Month Reason Onset Date Comments Refill Request 08/01/2023 Reason Onset Date Comments Refill Request 01/13/2024 Reason Comments Follow Up 4 week- anxiety Reason Comments Follow Up 4 week anxiety and w eight recheck Reason Comments Weight Problem Continued weight los s- patient typically doesn't eat unless someone puts food in front of him. Diarrhea Patient reports diar jesus alberto to family and dr Leong recently put patient on aricept approx 1 month Derm Problem Areas to back-sores. Derm Referral? Reason Comments Recheck wound Reason Comments Consult PARTIAL NEPHRECTOMY REF: DR. PRAKASH MADERA, [place] [facility] Care Teams (unrecognized sec tion and content) Assistant To The President Relationship Specialty Start Date End Date Ender Rollins MD [address] [place] [address] PCP - General Family Practice 02/19/19 [facility] 02/19/19 Assistant To The President Relationship Specialty Start Date End Date Ender Rollins MD [address] [place] [address] PCP - General Family Practice 02/19/19 [facility] 02/19/19 Assistant To The President Relationship Specialty Start Date End Date Ender Rollins MD [address] [place] [address] PCP - General Family Practice 02/19/19 [facility] 02/19/19 Assistant To The President Relationship Specialty Start Date End Date Ender Rollins MD [address] [place] [address] PCP - General Family Practice 02/19/19 [facility] 02/19/19 Assistant To The President Relationship Specialty Start Date End Date Ender Rollins MD [address] [place] [address] PCP - General Family Practice 02/19/19 [facility] 02/19/19 Assistant To The President Relationship Specialty Start Date End Date Ender Rollins MD [address] [place] [address] PCP - General Family Practice 02/19/19 [facility] 02/19/19 Assistant To The President Relationship Specialty Start Date End Date Ender Rollins MD [address] [place] [address] PCP - General Family Practice 02/19/19 [facility] 02/19/19 Assistant To The President Relationship Specialty Start Date End Date Ender Rollins MD [address] [place] [address] PCP - General Family Medicine 02/19/19 [facility] 02/19/19 Assistant To The President Relationship Specialty Start Date End Date Ender Rollins MD [address] [place] [address] PCP - General Family Medicine 02/19/19 [facility] 02/19/19 Assistant To The President Relationship Specialty Start Date End Date Ender Rollins MD [address] [place] [address] PCP - General Family Medicine 02/19/19 [facility] 02/19/19 Assistant To The President Relationship Specialty Start Date End Date Ender Rollins MD [address] [place] [address] PCP - General Family Medicine 02/19/19 [facility] 02/19/19 Assistant To The President Relationship Specialty Start Date End Date Ender Rollins MD [address] [place] [address] PCP - General Family Medicine 02/19/19 [facility] 02/19/19 Assistant To The President Relationship Specialty Start Date End Date Ender Rollins MD [address] [place] [address] PCP - General Family Medicine 02/19/19 [facility] 02/19/19 Assistant To The President Relationship Specialty Start Date End Date Ender Rollins MD [address] [place] [address] PCP - General Family Medicine 02/19/19 [facility] 02/19/19 Assistant To The President Relationship Specialty Start Date End Date Ender Rollins MD [address] [place] [address] PCP - General Family Medicine 11/19/22 Sanjay Leong MD [address] [place] [id number] Neurology 11/21/22 Assistant To The President Relationship Specialty Start Date End Date nEder Rollins MD [address] [place] [address] PCP - General Family Medicine 11/19/22 Sanjay Leong MD [address] [place] [address] Neurology 11/21/22 Assistant To The President Relationship Specialty Start Date End Date Ender Rollins MD [address] [place] [address] PCP - General Family Medicine 02/19/19 [facility] 02/19/19 Assistant To The President Relationship Specialty Start Date End Date Ender Rollins MD [address] [place] [address] PCP - General Family Medicine 11/19/22 Sanjay Leong MD [address] [place] [address] Neurology 11/21/22 Assistant To The President Relationship Specialty Start Date End Date Jenifer Blanc MD [address] [address] PCP - General Internal Medicine 12/29/22 [facility] 02/19/19 Assistant To The President Relationship Specialty Start Date End Date Ender Rollins MD [address] [place] [address] PCP - General Family Medicine 01/17/23 [facility] 02/19/19 Assistant To The President Relationship Specialty Start Date End Date Ender Rollins MD [address] [place] [address] PCP - General Family Medicine 11/19/22 Sanjay Leong MD [address] [place] [phone] Neurology 11/21/22 Assistant To The President Relationship Specialty Start Date End Date Ender Rollins MD [address] [place] [address] PCP - General Family Medicine 01/17/23 [facility] 02/19/19 Assistant To The President Relationship Specialty Start Date End Date Ender Rollins MD [address] [place] [address] PCP - General Family Medicine 01/17/23 [facility] 02/19/19 Assistant To The President Relationship Specialty Start Date End Date Ender Rollins MD [address] [place] [address] PCP - General Family Medicine 01/17/23 [facility] 02/19/19 Assistant To The President Relationship Specialty Start Date End Date Ender Rollins MD [address] [place] [address] PCP - General Family Medicine 01/17/23 [facility] 02/19/19 Assistant To The President Relationship Specialty Start Date End Date Ender Rollins MD [address] [place] [address] PCP - General Family Medicine 01/17/23 [facility] 02/19/19 Assistant To The President Relationship Specialty Start Date End Date Ender Rollins MD [address] [place] [address] PCP - General Family Medicine 01/17/23 [facility] 02/19/19 Assistant To The President Relationship Specialty Start Date End Date Ender Rollins MD [address] [place] [address] PCP - General Family Medicine 01/17/23 [facility] 02/19/19 Assistant To The President Relationship Specialty Start Date End Date Ender Rollins MD [address] [place] [address] PCP - General Family Medicine 01/17/23 [facility] 02/19/19 Assistant To The President Relationship Specialty Start Date End Date Ender Rollins MD [address] [place] [address] PCP - General Family Medicine 01/17/23 [facility] 02/19/19 Assistant To The President Relationship Specialty Start Date End Date Ender Rollins MD [address] [place] [address] PCP - General Family Medicine 01/17/23 [facility] 02/19/19 Assistant To The President Relationship Specialty Start Date End Date Ender Rollins MD [address] [place] [address] PCP - General Family Medicine 01/17/23 [facility] 02/19/19 Assistant To The President Relationship Specialty Start Date End Date Ender Rollins MD [address] [place] [address] PCP - General Family Medicine 01/17/23 [facility] 02/19/19 Assistant To The President Relationship Specialty Start Date End Date Ender Rollins MD [address] [place] [address] PCP - General Family Medicine 01/17/23 [facility] 02/19/19 Assistant To The President Relationship Specialty Start Date End Date Ender Rollins MD [address] [place] [address] PCP - General Family Medicine 01/17/23 [facility] 02/19/19 Assistant To The President Relationship Specialty Start Date End Date Ender Rollins MD [address] [place] [address] PCP - General Family Medicine 01/17/23 [facility] 02/19/19 Assistant To The President Relationship Specialty Start Date End Date Ender Rollins MD [address] [place] [address] PCP - General Family Medicine 01/17/23 [facility] 02/19/19 Assistant To The President Relationship Specialty Start Date End Date Ender Rollins MD [address] [place] [address] PCP - General Family Medicine 01/17/23 [facility] 02/19/19 Assistant To The President Relationship Specialty Start Date End Date Ender Rollins MD [address] [place] [address] PCP - General Family Medicine 01/17/23 [facility] 02/19/19 Assistant To The President Relationship Specialty Start Date End Date Ender Rollins MD [address] [place] [address] PCP - General Family Medicine 01/17/23 [facility] 02/19/19 Assistant To The President Relationship Specialty Start Date End Date Ender Rollins MD [address] [place] [address] PCP - General Family Medicine 01/17/23 [facility] 02/19/19 Assistant To The President Relationship Specialty Start Date End Date Ender Rollins MD [address] [place] [address] PCP - General Family Medicine 01/17/23 [facility] 02/19/19 Scheduled Active and Recently Administ ered Medications (unrecognized section and content) Medication Order 11/27/2022 11/28/2022 11/29/2022 amLODIPine (NORVASC) tablet 10 mg 10 mg, Oral, DAILY, First dose (after last modification) on [facility] 11/21/22 at 0900, Until Discontinued 0837 (Given - Provider: Katelynn Mckee RN) 0828 (Given - Provider: Katelynn Mckee RN) 0820 (Given - Provider: Rona Kirkland RN) aspirin chewable tablet 81 mg 81 mg, Oral, DAILY, First dose on Fri11/24/22 at 0900, Until Discontinued 0837 (Given - Provider: Katelynn Mckee RN) 0828 (Given - Provider: Katelynn Mckee RN) 0820 (Given - Provider: Rona Kirkland RN) Atorvastatin (LIPITOR) tablet 40 mg 40 mg, Oral, DAILY, First dose on Fri11/20/22 at 0915, Until Discontinued 0837 (Given - Provider: Katelynn Mckee RN) 0828 (Given - Provider: Katelynn Mckee RN) 0820 (Given - Provider: Rona Kirkland RN) busPIRone (BUSPAR) tablet 5 mg 5 mg, Oral, DAILY, First dose on Fri11/20/22 at 0915, Until Discontinued 0837 (Given - Provider: Katelynn Mckee RN) 0828 (Given - Provider: Katelynn Mckee RN) 0820 (Given - Provider: Rona Kirkland RN) carveDILOL (COREG) tablet 6.25 mg 6.25 mg, Oral, EVERY 12 HOURS, First dose on Fri11/26/22 at 1115, Until Discontinued, 0837 (Given - Provider: Katelynn Mckee RN)2030 (Given - Provider: Imelda Simmons RN) 0828 (Given - Provider: Katelynn Mckee RN)2047 (Given - Provider: Ancelmo Heath RN) 0820 (Given - Provider: Rona Kirkland RN) ceFEPIme (MAXIPIME) 2 g in dextrose 100 ml premix IVPB (COMPLETED) 2 g, Intravenous, Administer over 4 Hours, EVERY 12 HOURS NON-STANDARD, 6 doses, First dose (after last reorder) on Fri11/26/22 at 1730, Last dose on Fri11/29/22 at 0530, Infuse STAT doses over 30 minutes. Infuse other doses over 4 hours. 0539 ($$New Bag$$ - Provider: Imelda Simmons RN)1647 ($$New Bag$$ - Provider: Katelynn Mckee RN)2049 (Stopped - Provider: Rona Kirkland RN)2049 (Stopped - Provider: Rona Kirkland RN)2049 (Stopped - Provider: Rona Kirkland RN) 0545 ($$New Bag$$ - Provider: Imelda Simmons RN)0545 (Paused - Provider: Rona Kirkland RN)0546 (Restarted - Provider: Rona Kirkland RN)0743 (Paused - Provider: Rona Kirkland RN)0804 (Restarted - Provider: Rona Kirkland RN)0808 (Paused - Provider: Rona Kirkland RN)0819 (Restarted - Provider: Rona Kirkland RN)0828 (Paused - Provider: Rona Kirkland RN)0828 (Restarted - Provider: Rona Kirkland RN)0828 (Paused - Provider: Rona Kirkland RN)0829 (Restarted - Provider: Rona Kirkland RN)0829 (Paused - Provider: Rona Kirkland RN)0829 (Restarted - Provider: Rona Kirkland RN)0830 (Paused - Provider: Rona Kirkland RN)0830 (Restarted - Provider: Rona Kirkland RN)0831 (Paused - Provider: Rona Kirkland RN)0831 (Restarted - Provider: Rona Kirkland RN)0831 (Paused - Provider: Rona Kirkland RN)0832 (Restarted - Provider: Rona Kirkland RN)0832 (Paused - Provider: Rona Kirkland RN)0832 (Restarted - Provider: Rona Kirkland RN)0833 (Paused - Provider: Rona Kirkland RN)0833 (Restarted - Provider: Rona Kirkland RN)0835 (Paused - Provider: Rona Kirkland RN)0836 (Restarted - Provider: Rona Kirkland RN)0836 (Paused - Provider: Rona Kirkland RN)0836 (Restarted - Provider: Rona Kirkland RN)0836 (Paused - Provider: Rona Kirkland RN)0836 (Restarted - Provider: Rona Kirkland RN)0837 (Paused - Provider: Rona Kirkland RN)0837 (Restarted - Provider: Rona Kirkland RN)1008 (Stopped - Provider: Rona Kirkland RN)1557 ($$New Bag$$ - Provider: Katelynn Mckee RN)1631 (Paused - Provider: Rona Kirkland RN)1640 (Restarted - Provider: Rona Kirkland RN)1730 (Paused - Provider: Rona Kirkland RN)1734 (Restarted - Provider: Rona Kirkland RN)2026 (Rate/Dose Verify - Provider: Rona Kirkland RN)204 (Stopped - Provider: Rona Kirkland RN) 0438 ($$New Bag$$ - Provider: Ancelmo Heath RN)0754 (Paused - Provider: Rona Kirkland RN)0758 (Restarted - Provider: Rona Kirkland RN)0831 (Paused - Provider: Rona Kirkland RN)0833 (Restarted - Provider: Rona Kirkland RN)0838 (Stopped - Provider: Rona Kirkland RN) doxazosin (CARDURA) tablet 1 mg 1 mg, Oral, DAILY AT BEDTIME, First dose (after last modification) on Sue 11/28/22 at 2100, Until Discontinued 2047 (Given - Provider: Ancelmo Heath RN) Enoxaparin Sodium (LOVENOX) injection 40 mg(Linked Group 1) 40 mg, Subcutaneous, DAILY, First dose on Fri11/22/22 at 1130, Until Discontinued, , Indications: DVT/PE prophylaxis 0838 (Given - Provider: Katelynn Mckee RN) 0828 (Given - Provider: Katelynn Mckee RN) 0821 (Given - Provider: Rona Kirkland RN) Ipratropium-albuterol (DUONEB) 0.5-2.5 (3) MG/3ML nebulizer solution 3 mL (CANCELED) 3 mL, Nebulization, EVERY 6 HOURS NON-STANDARD, First dose on Fri11/25/22 at 1815, Until Discontinued 0300 (Not Given - Provider: Carlos Wilson RCP - Reason: Patient sleeping)0858 (Given - Provider: Chaka Bonilla RCP)1317 (Given - Provider: Chaka Bonilla RCP)2017 (Given - Provider: Lizandro Guzman RCP) 0215 (Not Given - Provider: Lizandro Guzman RCP - Reason: Patient sleeping)0802 (Given - Provider: David Murphy RCP)1300 (Given - Provider: David Murphy PRODUCT MARKETING ENGINEER)2023 (Not Given - Provider: Ciera Brown PRODUCT MARKETING ENGINEER - Reason: Other - Comment: order changed to PRN) Lidocaine HCl Urethral/Mucosal 2 % jelly prefilled syringe (Urojet) PRSY 10 mL (COMPLETED) 10 mL, Urethral, ONCE, 1 dose, On Sue 11/28/22 at 0230, Maximum 3 uro-jets/day 0419 (Given - Provider: Imelda Simmons RN) Lidocaine HCl Urethral/Mucosal 2 % jelly prefilled syringe (Urojet) PRSY 10 mL (COMPLETED) 10 mL, Urethral, ONCE, 1 dose, On Sue 11/28/22 at 1045, Maximum 3 uro-jets/day 1020 (Given - Provider: Katelynn Mckee RN) Lisinopril (PRINIVIL) tablet 40 mg 40 mg, Oral, DAILY, First dose (after last modification) on Fri11/22/22 at 0900, Until Discontinued 0837 (Given - Provider: Katelynn Mckee RN) 0828 (Given - Provider: Katelynn Mckee RN) 0820 (Given - Provider: Rona Kirkland RN) Melatonin tablet 3 mg 3 mg, Oral, DAILY EARLY EVENING, First dose (after last modification) on Fri11/22/22 at 1800, Until Discontinued 1637 (Given - Provider: Katelynn Mckee RN) 1655 (Given - Provider: Katelynn Mckee RN) nicotine (NICODERM CQ) 14 MG/24HR patch 1 patch(Linked Group 2) 1 patch, Transdermal, EVERY 24 HOURS, First dose on Fri11/22/22 at 0830, Until Discontinued, Apply patch to hairless skin site on upper body or arm. Rotate sites for each application. Do not cut or alter patch. Remove patch after duration of 16-24 hours. To dispose, fold adhesive ends together. 0836 (Patch Applied - Provider: Katelynn Mckee RN)0838 (Patch Removed - Provider: Katelynn Mckee RN) 0827 (Patch Applied - Provider: Katelynn Mckee RN) 0821 (Patch Removed - Provider: Rona Kirkland RN)0825 (Patch Applied - Provider: Rona Kirkland RN)1434 (Due: Patch Removed - Provider: System Discharge - Comment: Time automatically adjusted from order being discontinued) Potassium chloride (K-DUR) tablet ER 40 mEq (COMPLETED) 40 mEq, Oral, ONCE, 1 dose, On Fri11/27/22 at 0830, Swallow tablets whole; do not crush, chew, or suck on tablet. Tablet may also be broken in half and each half swallowed separately. 0837 (Given - Provider: Katelynn Mckee RN) Senna (SENOKOT) tablet 8.6 mg 8.6 mg, Oral, DAILY, First dose on Fri11/20/22 at 0900, Until Discontinued 0837 (Given - Provider: Katelynn Mckee RN) 0828 (Given - Provider: Katelynn Mckee RN) 0820 (Given - Provider: Rona Kirkland RN) VERIFY LINKED PATCH PLACEMENT(Linked Group 2) Other, EVERY 12 HOURS, First dose on Fri11/22/22 at 0900, Until Discontinued, Confirm continued adhesion of nicotine 14mg /24hr patch at documented site. 0010 (Patch Verify - Provider: Imelda Simmons RN)0838 (Patch Verify - Provider: Katelynn Mckee RN)2031 (Patch Verify - Provider: Imelda Simmons RN) 0829 (Patch Verify - Provider: Katelynn Mckee RN)205 (Patch Verify - Provider: Ancelmo Heath RN) 0825 (Patch Verify - Provider: Rona Kirkland RN) PRN Medication Order 11/27/2022 11/28/2022 11/29/2022 Acetaminophen (TYLENOL) tablet 325 mg(Linked Group 3) 325 mg, Oral, EVERY 4 HOURS NEEDED, Starting on Fri11/20/22 at 0631, Until Fri11/29/22 at 1634, Mild Pain, Moderate Pain, Maximum dose of acetaminophen is 4000 mg from all sources in 24 hours. Acetaminophen (TYLENOL) tablet 650 mg(Linked Group 3) 650 mg, Oral, EVERY 4 HOURS NEEDED, Starting on Fri11/20/22 at 0631, Until Fri11/29/22 at 1634, Severe Pain, Oral temp > 99.5, Maximum dose of acetaminophen is 4000 mg from all sources in 24 hours. hydrALAZINE (APRESOLINE) injection 10 mg(Linked Group 4) 10 mg, Intravenous, EVERY 1 HOUR NEEDED, Starting on 11/24/22 at 0458, Until Fri11/29/22 at 1634, SBP > 160 mmHg with HR <60 bpm, Use as initial dose. Use if Heart Rate LESS THAN 60 beats per minute. Higher dose may be administered if lower dose was previously documented as ineffective 10 minutes after administration and did not result in adverse effects (HR>90), Post-op/Post-Proc hydrALAZINE (APRESOLINE) injection 20 mg(Linked Group 4) 20 mg, Intravenous, EVERY 1 HOUR NEEDED, Starting on 11/24/22 at 0458, Until Fri11/29/22 at 1634, SBP > 160 mmHg with HR <60 bpm, Use if Heart Rate LESS THAN 60 beats per minute. Higher dose may be administered if lower dose was previously documented as ineffective 10 minutes after administration and did not result in adverse effects (HR>90). Decrease back to lower dose if patient has adverse effects, or no PRN used in previous 3 hours, Post-op/Post-Proc Ipratropium-albuterol (DUONEB) 0.5-2.5 (3) MG/3ML nebulizer solution 3 mL 3 mL, Nebulization, EVERY 6 HOURS NEEDED, Starting on Sue 11/28/22 at 2030, Until Fri11/29/22 at 1634, Shortness of Breath Labetalol (NORMODYNE) injection 10 mg(Linked Group 5) 10 mg, Intravenous, EVERY 1 HOUR NEEDED, Starting on 11/24/22 at 0459, Until Fri11/29/22 at 1634, SBP > 160 mmHg with HR >60 bpm, Use as initial dose. Use if Heart Rate GREATER THAN 60 beats per minute. Higher dose may be administered if lower dose was previously documented as ineffective 10 minutes after administration and did not result in adverse effects (HR<60) For vials: labetalol should be treated as a SINGLE USE VIAL. Discard remaining contents after one use., Post-op/Post-Proc Labetalol (NORMODYNE) injection 20 mg(Linked Group 5) 20 mg, Intravenous, EVERY 1 HOUR NEEDED, Starting on 11/24/22 at 0459, Until Fri11/29/22 at 1634, SBP > 160 mmHg with HR >60 bpm, Use if Heart Rate GREATER THAN 60 beats per minute. Higher dose may be administered if lower dose was previously documented as ineffective 10 minutes after administration and did not result in adverse effects (HR<60). Decrease back to lower dose if patient has adverse effects, or no PRN used in previous 3 hours For vials: labetalol should be treated as a SINGLE USE VIAL. Discard remaining contents after one use., Post-op/Post-Proc Ondansetron (ZOFRAN) tablet 4 mg(Linked Group 6) 4 mg, Oral, EVERY 6 HOURS NEEDED, Starting on Fri11/20/22 at 0631, Until Fri11/29/22 at 1634, Nausea / Vomiting Ondansetron 4mg/2ml (ZOFRAN) injection 4 mg(Linked Group 6) 4 mg, Intravenous, EVERY 6 HOURS NEEDED, Starting on Fri11/20/22 at 0631, Until Fri11/29/22 at 1634, Nausea / Vomiting Polyethylene glycol (MIRALAX) packet 17 g 17 g, Oral, DAILY NEEDED, Starting on Fri11/20/22 at 0631, Until Fri11/29/22 at 1634, Constipation If No Bowel Movement in 48 Hours QUEtiapine (SEROquel) tablet 25 mg 25 mg, Oral, DAILY AT BEDTIME NEEDED, Starting on Fri11/22/22 at 1056, Until Fri11/29/22 at 1634, agitation Sodium chloride 0.9% IV solution 250 mL Intravenous, at 20 mL/hr, NEEDED, Starting on Fri11/20/22 at 0631, Until Fri11/29/22 at 1634, Carrier Fluid - See Admin. Inst, 250mL 0.9NS to be used as carrier fluid for intermittent small volume or piggyback medication administration as needed. Infusion rate of the carrier fluid should be set at 20 mL/hr unless the rate as the intermittent medication is less than 20 mL/hr. For intermittent medications with a rate less than 20 mL/hr set the carrier fluid at that rate of the intermittent or piggy back medication. Linked Groups Order Group 1: Enoxaparin Sodium (LOVENOX) injection 40 mgJump to med 40 mg, Subcutaneous, DAILY, First dose on Fri11/22/22 at 1130, Until Discontinued

Indications: DVT/PE prophylaxis And PLATELET COUNT (CANCELED) Routine, EVERY 3 DAYS AM LAB, First occurrence on Fri11/25/22 at 0500, Until Specified, New collection Group 2: nicotine (NICODERM CQ) 14 MG/24HR patch 1 patchJump to med 1 patch, Transdermal, EVERY 24 HOURS, First dose on Fri11/22/22 at 0830, Until Discontinued
Apply patch to hairless skin site on upper body or arm. Rotate sites for each application. Do not cut or alter patch. Remove patch after duration of 16-24 hours. To dispose, fold adhesive ends together.
And VERIFY LINKED PATCH PLACEMENTJump to med Other, EVERY 12 HOURS, First dose on Fri11/22/22 at 0900, Until Discontinued
Confirm continued adhesion of nicotine 14mg /24hr patch at documented site.
Group 3: Acetaminophen (TYLENOL) tablet 325 mgJump to med 325 mg, Oral, EVERY 4 HOURS NEEDED, Starting on Fri11/20/22 at 0631, Until Fri11/29/22 at 1634, Mild Pain, Moderate Pain
Maximum dose of acetaminophen is 4000 mg from all sources in 24 hours.
Or Acetaminophen (TYLENOL) tablet 325 mg (CANCELED) 325 mg, Per NG tube, EVERY 4 HOURS NEEDED, Starting on Fri11/20/22 at 0631, Until Fri11/20/22 at 1406, Mild Pain, Moderate Pain
Maximum dose of acetaminophen is 4000 mg from all sources in 24 hours.
Or Acetaminophen (TYLENOL) tablet 650 mgJump to med 650 mg, Oral, EVERY 4 HOURS NEEDED, Starting on Fri11/20/22 at 0631, Until Fri11/29/22 at 1634, Severe Pain, Oral temp > 99.5
Maximum dose of acetaminophen is 4000 mg from all sources in 24 hours.
Or Acetaminophen (TYLENOL) tablet 650 mg (CANCELED) 650 mg, Per NG tube, EVERY 4 HOURS NEEDED, Starting on Fri11/20/22 at 0631, Until Fri11/20/22 at 1406, Severe Pain, Oral temp > 99.5
Maximum dose of acetaminophen is 4000 mg from all sources in 24 hours.
Group 4: hydrALAZINE (APRESOLINE) injection 10 mgJump to med 10 mg, Intravenous, EVERY 1 HOUR NEEDED, Starting on 11/24/22 at 0458, Until Fri11/29/22 at 1634, SBP > 160 mmHg with HR <60 bpm
Use as initial dose. Use if Heart Rate LESS THAN 60 beats per minute. Higher dose may be administered if lower dose was previously documented as ineffective 10 minutes after administration and did not result in adverse effects (HR>90)
Post-op/Post-Proc Or hydrALAZINE (APRESOLINE) injection 20 mgJump to med 20 mg, Intravenous, EVERY 1 HOUR NEEDED, Starting on 11/24/22 at 0458, Until Fri11/29/22 at 1634, SBP > 160 mmHg with HR <60 bpm
Use if Heart Rate LESS THAN 60 beats per minute. Higher dose may be administered if lower dose was previously documented as ineffective 10 minutes after administration and did not result in adverse effects (HR>90). Decrease back to lower dose if patient has adverse effects, or no PRN used in previous 3 hours
Post-op/Post-Proc Group 5: Labetalol (NORMODYNE) injection 10 mgJump to med 10 mg, Intravenous, EVERY 1 HOUR NEEDED, Starting on 11/24/22 at 0459, Until Fri11/29/22 at 1634, SBP > 160 mmHg with HR >60 bpm
Use as initial dose. Use if Heart Rate GREATER THAN 60 beats per minute. Higher dose may be administered if lower dose was previously documented as ineffective 10 minutes after administration and did not result in adverse effects (HR<60) For vials: labetalol should be treated as a SINGLE USE VIAL. Discard remaining contents after one use.
Post-op/Post-Proc Or Labetalol (NORMODYNE) injection 20 mgJump to med 20 mg, Intravenous, EVERY 1 HOUR NEEDED, Starting on 11/24/22 at 0459, Until Fri11/29/22 at 1634, SBP > 160 mmHg with HR >60 bpm
Use if Heart Rate GREATER THAN 60 beats per minute. Higher dose may be administered if lower dose was previously documented as ineffective 10 minutes after administration and did not result in adverse effects (HR<60). Decrease back to lower dose if patient has adverse effects, or no PRN used in previous 3 hours For vials: labetalol should be treated as a SINGLE USE VIAL. Discard remaining contents after one use.
Post-op/Post-Proc Group 6: Ondansetron 4mg/2ml (ZOFRAN) injection 4 mgJump to med 4 mg, Intravenous, EVERY 6 HOURS NEEDED, Starting on Fri11/20/22 at 0631, Until Fri11/29/22 at 1634, Nausea / Vomiting Or Ondansetron (ZOFRAN) tablet 4 mgJump to med 4 mg, Oral, EVERY 6 HOURS NEEDED, Starting on Fri11/20/22 at 0631, Until Fri11/29/22 at 1634, Nausea / Vomiting FOR RECORDS PERTAINING TO PATIENTS WHO ARE OR HAVE BEEN ENROLLED IN A CHEMICAL DEPENDENCY/SUBSTANCEABUSE PROGRAM, SOME INFORMATION MAY BE OMITTED. This clinical summary was aggregated from multiple sources. Caution should be exercised in using it in the provision of clinical care. This summary normalizes information from multiple sources, and as a consequence, information in this document may materially change the coding, format and clinical context of patient data. In addition, data may be omitted in some cases. CLINICAL DECISIONS SHOULD BE BASED ON THE PRIMARY CLINICAL RECORDS. [facility]. provides no warranty or guarantee of the accuracy or completeness of information in this document.
--- NOTE | 2024-08-19 13:25 | STRESSREP ---
Stress Test Report Pharmacologic myocardial perfusion stress test. 78-year-old male with a history of coronary disease Resting EKG demonstrates sinus bradycardia with a rate of 43 bpm. Resting blood pressure is 128/64 mmHg. 0.4 mg of regadenoson was infused per usual protocol followed by rapid intravenous saline flush injection. Continuous EKG monitoring was performed. The maximum heart rate was 72 bpm which was 51% of max impacted heart rate the maximum workload was 1 metabolic equivalent. At rest there were no ST or T wave changes noted to suggest ischemia and at peak infusion nonspecific ST changes were noted which did not meet the criteria for ischemia. No clinical angina is noted. The final blood pressure was 110/60 mmHg. Myocardial perfusion protocol. 10.1 mCi of technetium 99m sestamibi was injected at rest. 0.4 mg of regadenoson was infused per usual protocol. At peak infusion 31.6 mCi of technetium 99m sestamibi was injected stress images were obtained stress and rest images were reconstructed and compared in the short axis vertical long and horizontal long axis. Gated images were also obtained. Perfusion SPECT analysis: Review of the stress images demonstrate normal uptake of tracer noted in all areas of the myocardium. The resting images similar demonstrated normal uptake of tracer noted in all areas of the myocardium. No areas of reversibility are noted to suggest ischemia and no previous infarct is noted. Gated SPECT analysis: The gated ejection fraction is 70%. Conclusion: [Normal] pharmacologic myocardial perfusion stress test. Preserved ejection fraction.
== END | disposition home or self-care (01) ==
LOC: CVS 06:12
PROVIDERS: PCP Family Medicine Geriatric Medicine; Referring Provider Family Medicine Geriatric Medicine; Visit Provider Family Medicine Geriatric Medicine
DX: I25.10 Atherosclerotic heart disease of native coronary artery without angina pectoris (principal); R79.89 Other specified abnormal findings of blood chemistry
CPT/HCPCS: 78452; 93017; A9500; A4216; J2785

== ENCOUNTER → 2025-01-27 | Outpatient (CLI) | payer MEDICARE, OTHER, SELFPAY ==
[2025-01-27 16:36] LABS: Absolute Lymphocyte Count 2.08 X10^3/uL (0.83-4.51); Absolute Neutrophil Count 5.8 X10^3/uL (2.0-7.7); Basophil# 0.06 X10^3/uL; Basophil% 0.6 % (0-1); Eosinophils% 4.3 % (0-5); Hematocrit 43.6 % (40-54); Hemoglobin 13.8 g/dL (13.0-16.5); Lymphocyte # 2.08 X10^3/ul (0.83-4.51); Lymphocyte % 22.3 % (19-41); Mean Corp Hgb Conc 31.7 g/dL (32-36); Mean Corpuscular Hgb 28.1 pg (27.0-32.0); Mean Corpuscular Volume 88.8 fL (80-94); Mean Platelet Vol. 10.7 fl (6.2-12.0); Monocyte% 10.7 % (0-10); NRBC Flagged by Analyzer 0 % (0-5); Neutrophil # 5.75 X10^3/uL (2.7-7.7); Neutrophil % 61.9 % (47-70); Platelet Count 249 K/mm3 (150-450); RBC Distribution Width CV 14.7 % (11.6-14.6); RBC Distribution Width SD 47.7 fl (35.1-43.9); Red Blood Count 4.91 M/mm3 (4.6-6.2); White Blood Count 9.3 K/mm3 (4.4-11.0)
[2025-01-27 18:04] LABS: ALB/GLOB Ratio 1.3 RATIO (0.9-2.4); AST(SGOT) 23 U/L (<=37); Alanine Aminotransfer ALT/SGPT 13 U/L (<=46); Albumin, Serum 3.7 g/dL (3.4-4.8); Alkaline Phosphatase 126 U/L (40-129); Anion Gap 10 (5-15); BUN 16 mg/dL (4-19); BUN/Creat Ratio 14.8 RATIO (10-20); Carbon Dioxide 23.6 mmol/L (21.0-32.0); Chloride 108 mmol/L (98-108); Creatinine, Serum 1.06 mg/dL (0.70-1.20); EST Glomerular Filtration Rate 71 (>60); Globulin 2.9 g/dL (2.2-4.2); Glucose 100 mg/dL (70-99); Potassium 4.1 mmol/L (3.3-5.1); Protein, Total 6.6 g/dL (5.9-8.4); Sodium Level 142 mmol/L (133-145)
[2025-01-27 18:36] LABS: Cholesterol 124 mg/dL (<=200); High Density Lipoprotein 57 mg/dL; Low Density Lipoprotein Calc. 54 mg/dL; Triglycerides 64 mg/dL; Very Low Density Lipoprotein 13 mg/dL (5-40); cholesterol:hdl ratio screen 2.16
[2025-01-27 18:45] LABS: Vitamin D,25 Hydroxy 44.7 ng/mL (30-100)
== END | disposition home or self-care (01) ==
LOC: LAB 15:20
PROVIDERS: PCP Family Medicine Geriatric Medicine; Referring Provider Family Medicine Geriatric Medicine; Visit Provider Family Medicine Geriatric Medicine
DX: I10 Essential (primary) hypertension (principal); E55.9 Vitamin D deficiency, unspecified; E78.5 Hyperlipidemia, unspecified
CPT/HCPCS: 36415; 80053; 80061; 82306; 84443; 85025